=== PATIENT | female | born 1955 | race Caucasian/White ===

== ENCOUNTER → 2016-04-13 | Outpatient (CLI) | payer MEDICARE, MEDICAID ==
[~2016-04-13] MED LIST: BENZ5TA PO; CLON0.5T PO; CLON1TAB PO; IBUP60TA PO; LATU120T PO; LATU1TAB PO; LATU40TA PO; LEVO25TA5 PO; LEVO88TA3 PO; LIDO1OIN2 TOP; LYRI100C10 PO; MAPA500L PO; MOBI15TA PO; MUSCCRE9 EX; NAPR500T2 PO; RALO1TAB PO; ROZE8TAB9 PO; SYNT50TA PO; TIZA2TA PO; TRAM50TA2 PO; VENL150C43 PO; VENL75CA PO; VITA100066 PO; VITA500T88 PO; VITMTA PO; VOLT1GEL24 TD; tylenol PO
--- NOTE | 2016-04-30 00:58 | ECWPNPC ---
PATIENT NAME: LUZMARIA FUNES : 1955 GENDER: FEMALE VISIT DATE: 04/13/2016 DISCHARGE DATE: 04/13/16 1354 VISIT LOCKED DATE TIME: PHYSICIAN: FRANCHESCA GARCIA PHYSICIAN PAGER NO: [phone] RESOURCE: FRANCHESCA GARCIA REASON FOR APPOINTMENT 1. INCREASED PAIN HISTORY OF PRESENT ILLNESS HISTORY OF PRESENT ILLNESS: PAIN THE PATIENT DESCRIBES THE PAIN... FALL RISK SCREENING: SCREENING :NO FALLS IN THE PAST YEAR TODAY'S VISIT: NOTES: IS HAVING MORE PAIN IN LOW BACK. THIS INCREASED LAST WEEK. NOTES PAIN IS PRESENT WHEN GETTING UP IN THE MORNING. . CURRENT MEDICATIONS TAKING MUSCLE RUB ULTRA STRENGTH 8-30 % CREAM ONE APPLICATION TOPICALLY QID PRN TAKING CALCIUM 500 MG TABLET 1 TABLET WITH MEALS ORALLY TWICE A DAY TAKING ROZEREM 8 MG 1 TABLET AT BEDTIME NEEDED, NOTES: DR. PEARSON TAKING EFFEXOR XR 150 MG CAPSULE 1 CAPSULE ORALLY ONCE A DAY, NOTES: MICHEL HIGGINS TAKING KLONOPIN 0.5 MG TABLET 1 TAB ORALLY TWICE DAILY, NOTES: DR. PEARSON TAKING COGENTIN 0.5 MG 1 TAB(S) 2 TIMES A DAY, NOTES: DR. PEARSON TAKING LATUDA 80 MG TABLET 2 TABLETS WITH FOOD ORALLY DAILY, NOTES: MICHEL HIGGINS TAKING TIZANIDINE HCL 2 MG TABLET 1 TABLET ORALLY TAKE 1 AT MIDDAY AND 1 TAB AT BEDTIME TAKING EVISTA 60 MG TABLET 1 TABLET ORALLY ONCE A DAY TAKING KLONOPIN 1 MG TABLET 1 TABLET ORALLY BEFORE BEDTIME TAKING IBUPROFEN 600 MG TABLET 1 TABLET ORALLY THREE TIMES A DAY TAKING LEVOTHYROXINE SODIUM 25 MCG TABLET 1 TABLET ORALLY ONCE A DAY TAKING VITAMIN D 1000 UNITS TABLET 1 TABLET ORALLY DAILY TAKING LISINOPRIL 20 MG TABLET 1 TABLET ORALLY ONCE A DAY NOT-TAKING MULTIVITAMIN 1 TABLET CHEWABLE 1 TAB(S) ORALLY DAILY NOT-TAKING LATUDA 20 MG TABLET TABLET WITH FOOD TO TAKE WITH AN 80 MGS TOTAL 100 MGS DAILY. ORALLY ONCE A DAY NOT-TAKING LODINE 200 MG CAPSULE 1 CAPSULE NEEDED ORALLY EVERY 8 HRS NOT-TAKING VITAMIN C & D3/BETH HIPS 500-1000-20 MG-UNIT-MG CAPSULE ORALLY DAILY MEDICATION LIST REVIEWED AND RECONCILED WITH THE PATIENT PAST MEDICAL HISTORY HYPOTHYROIDISM MYOPIC ASTIGMATISM CALCANEAL SPURS ASTHMA, MILD INTERMITTENT IFG OSTEOPENIA, DEXA 01/18, T SCORE -2, AT SPINE 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 SCHIZOAFFECTIVE D/O WITH BIPOLAR FEATURES 11/15 EKG NEG PN 11/18 MORBID OBESITY MEMORY IMPAIRMENT, NEG WORK UP 06/18. XR LS SPINE 04/21 MILD SCOLIOSISCONVEX L/ BILATERAL L5 SPONDYLOLYSIS WITH GRADE 2 SPODYLOLITHESIS/ADV L5-S1 DDD/MOD T12-L1 DDD JOSEPH 09/18 FEV1 2.19 MRI LSPINE 12/19 - DIFFUSE DISC BULGE AT L4-5, L5-S1 WITH MIN THECAL SAC COMPRESSION, GRADE 2 SPONDYLOLITHESIS OF L5 ON S1 WITH ASSOC L5 PARS DEFECT, THERE IS COMPRESSION OF THE L5 NERVES IN THE NEURAL FORAMINA. ALLERGIES N.K.D.A. 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 NEW PATIENT PAIN DIARY TODAY'S VISITNOTES FROM 0-10, WHAT LEVEL IS YOUR PAIN TODAY?0 PAIN CLINIC PFS, CLERGY, PUBLIC HEALTH REFERRALS PFS REFERRAL NEEDED?NO CLERGY REFERRAL NEEDED?NO PUBLIC HEALTH REFERRAL NEEDED?NO WAS THE PROVIDER NOTIFIED OF ANY PERTINENT INFO?NO PFS REFERRAL NEEDED?NO CLERGY REFERRAL NEEDED?NO PUBLIC HEALTH REFERRAL NEEDED?NO WAS THE PROVIDER NOTIFIED OF ANY PERTINENT INFO?NO REVIEW OF SYSTEMS CONSTITUTIONAL: ANY CHANGE IN YOUR MEDICAL CONDITION? NO . CHILLS NO . FEVER NO . INFECTION: DO YOU HAVE NEW INFECTIONS? NO . DO YOU HAVE HISTORY OF MRSA? NO . MUSCULOSKELETAL: ANY NEW PATTERNS OF PAIN OR NUMBNESS? YES INCREASE IN BACK PAIN . GASTROENTEROLOGY: ANY NEW CHANGE IN BOWEL CONTROL? NO . GENITOURINARY: ANY NEW CHANGE IN BLADDER CONTROL? NO . IS THERE A CHANCE YOU COULD BE ? NO . HEMATOLOGY/LYMPH: DO YOU TAKE ANY BLOOD THINNERS? (FOR EXAMPLE- COUMADIN, PLAVIX, AGGRENOX, PLATEL, PRADAXA, OR XARELTO) NO . WHEN WAS YOUR LAST DOSE? DATE: TIME: . NEUROLOGY: HAVE YOU FALLEN IN THE PAST 6 MONTHS? NO . ANY NEW EXTREMITY NUMBNESS OR WEAKNESS? NO . CARDIOLOGY: DO YOU HAVE A PACEMAKER OR DEFIBRILLATOR? NO . RESPIRATORY: HAVE YOU BEEN SICK IN THE PAST WEEK? NO . FEVER NO . FLU LIKE SYMPTOMS? NO . COUGH NO . INTEGUMENTARY: DO YOU HAVE ANY RASHES OR OPEN SORES? NO . ALLERGIC/IMMUNO: ARE YOU ALLERGIC TO SHELLFISH OR IV DYE? NO . ANY NEW ALLERGIES? NO . PSYCHIATRIC: DO YOU HAVE THOUGHTS OF HURTING YOURSELF OR SOMEONE ELSE? NO . ARE YOU ABUSED, NEGLECTED, OR IN AN UNSAFE ENVIRONMENT? NO . ENDOCRINOLOGY: ARE YOU DIABETIC? NO . OTHER: DO YOU NEED ANY PRESCRIPTIONS? NO . IF YES, PLEASE LIST: ____ . ANY NEW PROBLEMS WITH YOUR MEDICATIONS? NO . WHEN DID YOU LAST EAT? ____ . WHEN DID YOU LAST DRINK? ____ . WHAT DID YOU LAST DRINK? ____ . NAME OF PERSON DRIVING YOU HOME? ____ . DO YOU HAVE ANY OTHER QUESTIONS OR CONCERNS NO . REVIEWED BY: PROVIDER: FRANCHESCA ARGUETA . VITAL SIGNS WT 180 LBS, HT 56.25 IN, BMI 39.99 INDEX, BP 121/52 MM HG, HR 88 /MIN, RR 18 /MIN, TEMP 97 F,5 F, OXYGEN SAT % 99, SAFE IN ENV? (Y/N) YES, REVIEWED BY: KG. EXAMINATION GENERAL EXAMINATION: GENERAL APPEARANCE:APPEARS THE STATED AGE, WELL NOURISHED AND HYDRATED, NO ACUTE DISTRESS. PSYCHAPPROPRIATE MOOD AND AFFECT . HEENT:HEAD: NORMOCEPHALIC, ATRAUMATIC. NECK:SUPPLE, NON-TENDER, NO LYMPHADENOPATHY, NO THYROMEGALY. LUNGS:CLEAR TO AUSCULTATION BILATERALLY. HEART:REGULAR RATE AND RHYTHM. MUSCULOSKELETAL:TENDER WITH PALPATION OVER LUMOSACRAL AXIS. ABLE TO FLEX/EXTEND AND ROTATE LOW BACK WITH ONLY MILD DISCOMFORT. GAIT NONANTALGIC. ASSESSMENTS MYALGIA - M79.1 (PRIMARY) LOW BACK PAIN - M54.5 OTHER CHRONIC PAIN - G89.29 TREATMENT MYALGIA NOTES: WALK DAILY. DO EXERCISES EVERY OTHER DAY. NO CHANGE IN MEDS. STOP TWISTING WITH EXERCISES FOR NOW. PROCEDURE CODES FA211 ESTABILISHED PATIENT [facility] CHARGE G8730 PAIN ASSESS POS TOOL F/U PLAN DOC G8427 DOC MEDS VERIFIED W/PT OR RE DISPOSITION & COMMUNICATION FOLLOW UP 3 MONTHS ELECTRONICALLY SIGNED BY SISI MOLINA ON 04/29/2016 AT 12:56 PM EST DISCLAIMER : THIS IS A VISIT SUMMARY EXTRACTED FROM THE [employer] CHART. IT IS NOT A COPY OF THE [employer] PROGRESS NOTE. MTDD
== END ==
LOC: M PAIN 13:20
PROVIDERS: ATTEND Nurse Practitioner Family
DX: M79.1 Myalgia (principal); M54.5 Low back pain; G89.29 Other chronic pain; Z79.899 Other long term (current) drug therapy; E03.9 Hypothyroidism, unspecified; R73.01 Impaired fasting glucose; M85.80 Other specified disorders of bone density and structure, unspecified site; E55.9 Vitamin D deficiency, unspecified; E66.9 Obesity, unspecified; G31.84 Mild cognitive impairment of uncertain or unknown etiology; F20.9 Schizophrenia, unspecified; J45.909 Unspecified asthma, uncomplicated

== ENCOUNTER → 2016-05-15 | Outpatient (CLI) | payer MEDICARE, MEDICAID ==
--- NOTE | 2016-05-15 13:35 | REPMRS ---
Patient History The patient states she has not had a clinical breast exam in over a year. Patient is postmenopausal, has history of breast cancer at age 54, and is nulliparous. No known family history of cancer. Malignant lumpectomy of the left breast, 2009. Took unspecified hormones for 2 years. [facility] Screen Mammo: May 15, 2016 - Exam #: [id number] Bilateral CC and MLO view(s) were taken. Technologist: Jaida Hines, Technologist Prior study comparison: May 13, 2015, digital woman screen mammo performed at [facility]. March 22, 2014, digital woman screen mammo performed at [facility]. FINDINGS: There are scattered fibroglandular densities. There has been no change in the appearance of the mammogram from the prior studies. There is a mild amount of residual fibroglandular tissue which is fairly symmetric. There is no interval development of dominant mass, architectural distortion, or clustered microcalcification suggestive of malignancy. ASSESSMENT: BI-RADS/ACR category 1 mammogram. Negative. Recommendation Routine screening mammogram in 1 year (for women over age 40). This mammogram was interpreted with the aid of an FDA-approved computer-aided dectection system. Electronically Signed By: Howard Kee MD 05/15/16 [id number]
== END ==
LOC: M WHC 11:22
PROVIDERS: ATTEND Nurse Practitioner Family
DX: Z12.31 Encounter for screening mammogram for malignant neoplasm of breast (principal); Z78.0 Asymptomatic menopausal state; Z92.0 Personal history of contraception; Z85.3 Personal history of malignant neoplasm of breast

== ENCOUNTER → 2016-05-21 | Outpatient (CLI) | payer MEDICARE, MEDICAID ==
[2016-05-21 12:18] LABS: ALBUMIN/GLOBULIN RATIO 1.54 (1.00-1.93); BILIRUBIN,TOTAL 0.2 MG/DL (0.2-1.0); CALCIUM LEVEL 9.4 MG/DL (8.5-10.1); CREATININE FOR GFR 1.07 MG/DL (0.55-1.02); FREE T4 0.92 NG/DL (0.76-1.46); GLOMERULAR FILTRATION RATE 56.1 (>51); TOTAL PROTEIN 6.6 GM/DL (6.4-8.2)
[2016-05-21 12:21] LABS: POTASSIUM SERUM 5.2 MEQ/L (3.5-5.1)
== END ==
LOC: M LAB 11:04
PROVIDERS: ATTEND Nurse Practitioner Family
DX: R73.01 Impaired fasting glucose (principal); E03.9 Hypothyroidism, unspecified; E55.9 Vitamin D deficiency, unspecified

== ENCOUNTER → 2016-07-13 | Outpatient (CLI) | payer MEDICARE, MEDICAID ==
--- NOTE | 2016-07-15 02:59 | ECWPNPC ---
PATIENT NAME: LUZMARIA FUNES : 1955 GENDER: FEMALE VISIT DATE: 07/13/2016 DISCHARGE DATE: 07/13/16 1119 VISIT LOCKED DATE TIME: PHYSICIAN: FRANCHESCA GARCIA PHYSICIAN PAGER NO: [phone] RESOURCE: FRANCHESCA GARCIA REASON FOR APPOINTMENT 1. FOLLOWUP HISTORY OF PRESENT ILLNESS HISTORY OF PRESENT ILLNESS: PAIN THE PATIENT DESCRIBES THE PAIN... FALL RISK SCREENING: SCREENING :NO FALLS IN THE PAST YEAR TODAY'S VISIT: NOTES: RATES PAIN TODAY 3/10 IN LOW BACK. REPORTS SHE HAS NOT YET STARTED YOGA BUT CONTINUES HER USUAL EXERCISES AND STRETCHES. NO RECENT FALLS. . CURRENT MEDICATIONS TAKING MUSCLE RUB ULTRA STRENGTH 8-30 % CREAM ONE APPLICATION TOPICALLY FOUR TIMES A DAY TAKING CALCIUM 500 MG TABLET 1 TABLET WITH MEALS ORALLY DAILY TAKING ROZEREM 8 MG 1 TABLET AT BEDTIME NEEDED, NOTES: DR. PEARSON TAKING IBUPROFEN 600 MG TABLET 1 TABLET ORALLY THREE TIMES A DAY TAKING LISINOPRIL 20 MG TABLET 1 TABLET ORALLY ONCE A DAY TAKING EFFEXOR XR 150 MG CAPSULE 1 CAPSULE ORALLY ONCE A DAY, NOTES: MICHEL HIGGINS TAKING KLONOPIN 0.5 MG TABLET 1 TAB AM 1 TAB @ NOON 2 TABS @ BEDTIME ORALLY THREE TIMES DAILY, NOTES: DR. PEARSON TAKING COGENTIN 0.5 MG 1 TAB(S) 2 TIMES A DAY, NOTES: DR. PEARSON TAKING LATUDA 80 MG TABLET 2 TABLETS WITH FOOD ORALLY DAILY, NOTES: MICHEL HIGGINS TAKING VITAMIN D 1000 UNITS TABLET 1 TABLET ORALLY DAILY TAKING LEVOTHYROXINE SODIUM 25 MCG TABLET 1 TABLET ORALLY ONCE A DAY TAKING TIZANIDINE HCL 2 MG TABLET 1 TABLET ORALLY TAKE 1 AT MIDDAY AND 1 TAB AT BEDTIME TAKING EVISTA 60 MG TABLET 1 TABLET ORALLY ONCE A DAY NOT-TAKING VITAMIN C & D3/BETH HIPS 500-1000-20 MG-UNIT-MG CAPSULE ORALLY DAILY MEDICATION LIST REVIEWED AND RECONCILED WITH THE PATIENT PAST MEDICAL HISTORY HYPOTHYROIDISM MYOPIC ASTIGMATISM CALCANEAL SPURS ASTHMA, MILD INTERMITTENT IFG OSTEOPENIA, DEXA 01/18, T SCORE -2, AT SPINE 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 SCHIZOAFFECTIVE D/O WITH BIPOLAR FEATURES 11/15 EKG NEG PN 11/18 MORBID OBESITY MEMORY IMPAIRMENT, NEG WORK UP 06/18. XR LS SPINE 04/21 MILD SCOLIOSISCONVEX L/ BILATERAL L5 SPONDYLOLYSIS WITH GRADE 2 SPODYLOLITHESIS/ADV L5-S1 DDD/MOD T12-L1 DDD JOSEPH 09/18 FEV1 2.19 MRI LSPINE 12/19 - DIFFUSE DISC BULGE AT L4-5, L5-S1 WITH MIN THECAL SAC COMPRESSION, GRADE 2 SPONDYLOLITHESIS OF L5 ON S1 WITH ASSOC L5 PARS DEFECT, THERE IS COMPRESSION OF THE L5 NERVES IN THE NEURAL FORAMINA. ALLERGIES N.K.D.A. REVIEW OF SYSTEMS CONSTITUTIONAL: ANY CHANGE IN YOUR MEDICAL CONDITION? NO . CHILLS NO . FEVER NO . INFECTION: DO YOU HAVE NEW INFECTIONS? NO . DO YOU HAVE HISTORY OF MRSA? NO . MUSCULOSKELETAL: ANY NEW PATTERNS OF PAIN OR NUMBNESS? NO . GASTROENTEROLOGY: ANY NEW CHANGE IN BOWEL CONTROL? NO . GENITOURINARY: ANY NEW CHANGE IN BLADDER CONTROL? NO . IS THERE A CHANCE YOU COULD BE ? NO . HEMATOLOGY/LYMPH: DO YOU TAKE ANY BLOOD THINNERS? (FOR EXAMPLE- COUMADIN, PLAVIX, AGGRENOX, PLATEL, PRADAXA, OR XARELTO) NO . WHEN WAS YOUR LAST DOSE? DATE: TIME: . NEUROLOGY: HAVE YOU FALLEN IN THE PAST 6 MONTHS? NO . ANY NEW EXTREMITY NUMBNESS OR WEAKNESS? NO . CARDIOLOGY: DO YOU HAVE A PACEMAKER OR DEFIBRILLATOR? NO . RESPIRATORY: HAVE YOU BEEN SICK IN THE PAST WEEK? YES, JUST STARTED DURING THE NIGHT. THROAT SORE AND COUGHING. . FEVER NO . FLU LIKE SYMPTOMS? NO . COUGH NO . INTEGUMENTARY: DO YOU HAVE ANY RASHES OR OPEN SORES? NO . ALLERGIC/IMMUNO: ARE YOU ALLERGIC TO SHELLFISH OR IV DYE? NO . ANY NEW ALLERGIES? NO . PSYCHIATRIC: DO YOU HAVE THOUGHTS OF HURTING YOURSELF OR SOMEONE ELSE? NO . ARE YOU ABUSED, NEGLECTED, OR IN AN UNSAFE ENVIRONMENT? NO . ENDOCRINOLOGY: ARE YOU DIABETIC? NO . OTHER: DO YOU NEED ANY PRESCRIPTIONS? NO . IF YES, PLEASE LIST: ____ . ANY NEW PROBLEMS WITH YOUR MEDICATIONS? NO . WHEN DID YOU LAST EAT? ____ . WHEN DID YOU LAST DRINK? ____ . WHAT DID YOU LAST DRINK? ____ . NAME OF PERSON DRIVING YOU HOME? ____ . DO YOU HAVE ANY OTHER QUESTIONS OR CONCERNS NO . REVIEWED BY: PROVIDER: FRANCHESCA ARGUETA . VITAL SIGNS WT 171.2 LBS, HT 56.25 IN, BMI 38.04 INDEX, BP 124/65 MM HG, HR 99 /MIN, RR 20 /MIN, TEMP 99.9 F, OXYGEN SAT % 98%, NA INITIALS TL 1102, REVIEWED BY: CMTEMP 99.9, RN Albert AWARE, PT STATES SHE HAS COLD- TL. EXAMINATION GENERAL EXAMINATION: GENERAL APPEARANCE:PALE, APPEARS ILL. PSYCHALERT , ORIENTED X 3 . HEENT:HEAD: NORMOCEPHALIC, ATRAUMATIC. VOICE RASY. LUNGS:CLEAR TO AUSCULTATION BILATERALLY. HEART:REGULAR RATE AND RHYTHM. MUSCULOSKELETAL: MINIMAL TENDER WITH PALPATION OVER LUMOSACRAL AXIS. ABLE TO FLEX/EXTEND AND ROTATE LOW BACK WITH ONLY MILD DISCOMFORT. GAIT NONANTALGIC. ASSESSMENTS MYALGIA - M79.1 (PRIMARY) LUMBAGO DUE TO DISPLACEMENT OF INTERVERTEBRAL DISC - M51.26 TREATMENT MYALGIA REFILL IBUPROFEN TABLET, 600 MG, 1 TABLET, ORALLY, THREE TIMES A DAY, 30 DAY(S), 90, REFILLS 2 NOTES: CONTINUE CURRENT MEDS, EXERCISES AND STRETCHES, I, FALLS CARE PLAN: 1. RECOMMEND REMOVING ALL THROW RUGS. 2. RECOMMEND NIGHT LIGHTS 3. RECOMMEND WEARING RUBBER SOLED SHOES AND TO NOT GO BAREFOOT. 4.. ADVISED TO CHANGE POSITION SLOWLY FROM SUPINE TO STANDING TO AVOID DIZZINESS. , #128 - SCREENING BMI AND F/U PLAN IN : BMI ABOVE NORMAL TODAY. DISCUSSED WITH PATIENT NUTRITIONAL FOOD CHOICES TO ASSIST WITH WEIGHT LOSS. RECCOMMENDED REDUCING SALT, SUGAR, SODA INTAKE. RECOMMEND INCREASE ACTIVITY TO INCLUDE WALKING ON A REGULAR BASIS. PROCEDURE CODES FA211 ESTABILISHED PATIENT [facility] CHARGE B0412 PAIN ASSESS POS TOOL F/U PLAN DOC X6810 DOC MEDS VERIFIED W/PT OR RE G4439 BP SCR PRFRM RCMDD DEFIND SCR INTVL 3016F PT SCRND UNHLTHY [place] USE 1124F ACP DISCUSS-NO DSCNMKR DOCD 1036F TOBACCO NON-USER 0518F FALL PLAN OF CARE DOCD G8420 BMI<30 AND >=22 CALC & DOCU 3288F FALL RISK ASSESSMENT DOCD DISPOSITION & COMMUNICATION FOLLOW UP 4 MONTHS ELECTRONICALLY SIGNED BY SISI MOLINA ON 07/13/2016 AT 12:55 PM EDT DISCLAIMER : THIS IS A VISIT SUMMARY EXTRACTED FROM THE [employer] CHART. IT IS NOT A COPY OF THE [employer] PROGRESS NOTE. ALEXANDRA
== END | disposition home or self-care (01) ==
LOC: M PAIN 10:00
PROVIDERS: ATTEND Nurse Practitioner Family
DX: G89.29 Other chronic pain (principal); M79.1 Myalgia; M51.26 Other intervertebral disc displacement, lumbar region; E03.9 Hypothyroidism, unspecified; J45.909 Unspecified asthma, uncomplicated; F25.9 Schizoaffective disorder, unspecified; M85.80 Other specified disorders of bone density and structure, unspecified site; E55.9 Vitamin D deficiency, unspecified; E66.9 Obesity, unspecified; G31.84 Mild cognitive impairment of uncertain or unknown etiology; Z79.899 Other long term (current) drug therapy

== ENCOUNTER → 2016-09-15 | Outpatient (CLI) | payer MEDICARE, MEDICAID ==
[~2016-09-15] MED LIST changes: +BENZ0.5T PO; -BENZ5TA PO; +IBUP1TAB6 PO; -IBUP60TA PO; +LISI-538 PO; -LYRI100C10 PO; +MUSC1CRE EX; -MUSCCRE9 EX; -NAPR500T2 PO; +NAPR500T3 PO; +NORCOTAB PO; +PREG100CA PO; +ROZE8TAB16 PO; -ROZE8TAB9 PO; -VENL75CA PO; +VENL75CA2 PO; +VITA200025 PO; +VOLT1GEL15 TD; -VOLT1GEL24 TD
[2016-09-15 14:38] LABS: ALBUMIN 3.8 GM/DL (3.2-5.2); ALBUMIN/GLOBULIN RATIO 1.58 (1.00-1.93); ALKALINE PHOSPHATASE 48 U/L (45-117); ALT/SGPT 26 U/L (12-78); ANION GAP 10 MEQ/L (8-16); AST/SGOT 19 U/L (15-37); BILIRUBIN,TOTAL 0.1 MG/DL (0.2-1.0); BLOOD UREA NITROGEN 13 MG/DL (7-18); CALCIUM LEVEL 8.5 MG/DL (8.5-10.1); CARBON DIOXIDE LEVEL 25 MEQ/L (21-32); CHLORIDE LEVEL 94 MEQ/L (98-107); CREATININE FOR GFR 0.75 MG/DL (0.55-1.02); FREE T4 0.99 NG/DL (0.76-1.46); GLOMERULAR FILTRATION RATE > 60.0 (>51); GLUCOSE, FASTING 106 MG/DL (70-105); POTASSIUM SERUM 4.8 MEQ/L (3.5-5.1); SODIUM LEVEL 129 MEQ/L (136-145); TOTAL PROTEIN 6.2 GM/DL (6.4-8.2)
== END ==
LOC: M LAB 12:56
PROVIDERS: ATTEND Nurse Practitioner Family
DX: I10 Essential (primary) hypertension (principal); E03.9 Hypothyroidism, unspecified; E55.9 Vitamin D deficiency, unspecified

== ENCOUNTER → 2016-10-12 | Outpatient (CLI) | payer MEDICARE, MEDICAID ==
--- NOTE | 2016-10-31 23:23 | ECWPNPC ---
PATIENT NAME: LUZMARIA FUNES : 1955 GENDER: FEMALE VISIT DATE: 10/12/2016 DISCHARGE DATE: 10/12/16 1137 VISIT LOCKED DATE TIME: PHYSICIAN: FRANCHESCA GARCIA PHYSICIAN PAGER NO: [phone] RESOURCE: FRANCHESCA GARCIA REASON FOR APPOINTMENT 1. LOWER BACK HISTORY OF PRESENT ILLNESS HISTORY OF PRESENT ILLNESS: PAIN THE PATIENT DESCRIBES THE PAIN... FALL RISK SCREENING: SCREENING :NO FALLS IN THE PAST YEAR TODAY'S VISIT: NOTES: RATES PAIN TODAY 5/10. STATES HAS NO PAIN IN LEGS. 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 . CURRENT MEDICATIONS TAKING MUSCLE RUB ULTRA STRENGTH 8-30 % CREAM ONE APPLICATION TOPICALLY FOUR TIMES A DAY TAKING CALCIUM 500 MG TABLET 1 TABLET WITH MEALS ORALLY DAILY TAKING ROZEREM 8 MG 1 TABLET AT BEDTIME NEEDED, NOTES: DR. PEARSON TAKING TIZANIDINE HCL 2 MG TABLET 1 TABLET ORALLY TAKE 1 AT MIDDAY AND 1 TAB AT BEDTIME TAKING EVISTA 60 MG TABLET 1 TABLET ORALLY ONCE A DAY TAKING IBUPROFEN 600 MG TABLET 1 TABLET ORALLY THREE TIMES A DAY TAKING LISINOPRIL 20 MG TABLET 1 TABLET ORALLY ONCE A DAY TAKING LEVOTHYROXINE SODIUM 50 MCG TABLET 1 TABLET ON AN EMPTY STOMACH IN THE MORNING ORALLY ONCE A DAY TAKING VITAMIN D 2000 UNIT CAPSULE 1 CAPSULE ORALLY ONCE A DAY TAKING EFFEXOR XR 150 MG CAPSULE 1 CAPSULE ORALLY ONCE A DAY, NOTES: MICHEL HIGGINS TAKING KLONOPIN 0.5 MG TABLET 1 TAB AM 1 TAB @ NOON 2 TABS @ BEDTIME ORALLY THREE TIMES DAILY, NOTES: DR. PEARSON TAKING COGENTIN 0.5 MG 1 TAB(S) 2 TIMES A DAY, NOTES: DR. PEARSON TAKING LATUDA 80 MG TABLET 2 TABLETS WITH FOOD ORALLY DAILY, NOTES: MICHEL HIGGINS NOT-TAKING VITAMIN C & D3/BETH HIPS 500-1000-20 MG-UNIT-MG CAPSULE ORALLY DAILY MEDICATION LIST REVIEWED AND RECONCILED WITH THE PATIENT PAST MEDICAL HISTORY HYPOTHYROIDISM MYOPIC ASTIGMATISM CALCANEAL SPURS ASTHMA, MILD INTERMITTENT IFG OSTEOPENIA, DEXA 01/18, T SCORE -2, AT SPINE 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 SCHIZOAFFECTIVE D/O WITH BIPOLAR FEATURES 11/15 EKG NEG PN 11/18 MORBID OBESITY MEMORY IMPAIRMENT, NEG WORK UP 06/18. XR LS SPINE 2/14 MILD SCOLIOSISCONVEX L/ BILATERAL L5 SPONDYLOLYSIS WITH GRADE 2 SPODYLOLITHESIS/ADV L5-S1 DDD/MOD T12-L1 DDD JOSEPH 09/18 FEV1 2.19 MRI LSPINE 12/19 - DIFFUSE DISC BULGE AT L4-5, L5-S1 WITH MIN THECAL SAC COMPRESSION, GRADE 2 SPONDYLOLITHESIS OF L5 ON S1 WITH ASSOC L5 PARS DEFECT, THERE IS COMPRESSION OF THE L5 NERVES IN THE NEURAL FORAMINA. ALLERGIES N.K.D.A. SURGICAL HISTORY L BREAST BX 11/04/09 L BREAST LUMPECTOMY--DCIS 11/27/09 REFUSES COLONOSCOPY REFERRAL/2009 (PT IS INTERESTED IN TALKING ABOUT THIS PROCEDURE 2011),APPT. NOTED FOR 01/27/12 HOSPITALIZATION/MAJOR DIAGNOSTIC PROCEDURE [facility]- SCHIZOAFFECTIVE D/O 01/19 REVIEW OF SYSTEMS REVIEWED BY: PROVIDER: FRANCHESCA ARGUETA . CONSTITUTIONAL: ANY CHANGE IN YOUR MEDICAL CONDITION? NO . CHILLS NO . FEVER NO . INFECTION: DO YOU HAVE NEW INFECTIONS? NO . DO YOU HAVE HISTORY OF MRSA? NO . MUSCULOSKELETAL: ANY NEW PATTERNS OF PAIN OR NUMBNESS? NO . GASTROENTEROLOGY: GENERAL STATES STOOLS ARE HARD BUT IS NOT CONSTIP . ANY NEW CHANGE IN BOWEL CONTROL? NO . GENITOURINARY: ANY NEW CHANGE IN BLADDER CONTROL? NO . IS THERE A CHANCE YOU COULD BE ? NO . HEMATOLOGY/LYMPH: DO YOU TAKE ANY BLOOD THINNERS? (FOR EXAMPLE- COUMADIN, PLAVIX, AGGRENOX, PLATEL, PRADAXA, OR XARELTO) NO . WHEN WAS YOUR LAST DOSE? DATE: TIME: . NEUROLOGY: HAVE YOU FALLEN IN THE PAST 6 MONTHS? NO . ANY NEW EXTREMITY NUMBNESS OR WEAKNESS? NO . CARDIOLOGY: DO YOU HAVE A PACEMAKER OR DEFIBRILLATOR? NO . RESPIRATORY: HAVE YOU BEEN SICK IN THE PAST WEEK? NO . FEVER NO . FLU LIKE SYMPTOMS? NO . COUGH NO . INTEGUMENTARY: DO YOU HAVE ANY RASHES OR OPEN SORES? NO . ALLERGIC/IMMUNO: ARE YOU ALLERGIC TO SHELLFISH OR IV DYE? NO . ANY NEW ALLERGIES? NO . PSYCHIATRIC: DO YOU HAVE THOUGHTS OF HURTING YOURSELF OR SOMEONE ELSE? NO . ARE YOU ABUSED, NEGLECTED, OR IN AN UNSAFE ENVIRONMENT? NO . ENDOCRINOLOGY: ARE YOU DIABETIC? NO . OTHER: DO YOU NEED ANY PRESCRIPTIONS? YES, IBUPROFEN . IF YES, PLEASE LIST: ____ . ANY NEW PROBLEMS WITH YOUR MEDICATIONS? NO . WHEN DID YOU LAST EAT? ____ . WHEN DID YOU LAST DRINK? ____ . WHAT DID YOU LAST DRINK? ____ . NAME OF PERSON DRIVING YOU HOME? ____ . DO YOU HAVE ANY OTHER QUESTIONS OR CONCERNS NO . VITAL SIGNS WT 172.2 LBS, HT 56.25 IN, BMI 38.26 INDEX, BP 165/84 MM HG, HR 101 /MIN, RR 20 /MIN, TEMP 98.9 F, OXYGEN SAT % 99%, NA INITIALS TR 1111. EXAMINATION GENERAL EXAMINATION: GENERAL APPEARANCE:PALE, APPEARS ILL. PSYCHALERT , ORIENTED X 3 TREMULOUS TODAY. HEENT:HEAD: NORMOCEPHALIC, ATRAUMATIC. VOICE RASY. LUNGS:CLEAR TO AUSCULTATION BILATERALLY. HEART:REGULAR RATE AND RHYTHM. MUSCULOSKELETAL:TENDER WITH PALPATION OVER LUMBOSACRAL AXIS. ABLE TO FLEX/EXTEND AND ROTATE LOW BACK WITH ONLY MILD DISCOMFORT. GAIT NONANTALGIC. ASSESSMENTS MYALGIA - M79.1 (PRIMARY) LUMBAGO DUE TO DISPLACEMENT OF INTERVERTEBRAL DISC - M51.26 TREATMENT MYALGIA REFILL IBUPROFEN TABLET, 600 MG, 1 TABLET, ORALLY, THREE TIMES A DAY, 30 DAY(S), 90, REFILLS 2 NOTES: CONTINUE MUSCLE RUB OR SIMILIAR CREAM TO LOW BACK. WALK DAILY. CONTINUE EXERCISES. PROCEDURE CODES FA211 ESTABILISHED PATIENT [facility] CHARGE G8730 PAIN ASSESS POS TOOL F/U PLAN DOC G8427 DOC MEDS VERIFIED W/PT OR RE DISPOSITION & COMMUNICATION FOLLOW UP 4 MONTHS (REASON: BACK PAIN) ELECTRONICALLY SIGNED BY SISI MOLINA ON 10/31/2016 AT 03:18 PM EDT DISCLAIMER : THIS IS A VISIT SUMMARY EXTRACTED FROM THE [facility] CHART. IT IS NOT A COPY OF THE [facility] PROGRESS NOTE. ALEXANDRA
== END | disposition home or self-care (01) ==
LOC: M PAIN 11:00
PROVIDERS: ATTEND Nurse Practitioner Family
DX: G89.29 Other chronic pain (principal); M79.1 Myalgia; M51.26 Other intervertebral disc displacement, lumbar region; E03.9 Hypothyroidism, unspecified; J45.909 Unspecified asthma, uncomplicated; F25.9 Schizoaffective disorder, unspecified; M85.80 Other specified disorders of bone density and structure, unspecified site; E55.9 Vitamin D deficiency, unspecified; E66.9 Obesity, unspecified; G31.84 Mild cognitive impairment of uncertain or unknown etiology; Z79.899 Other long term (current) drug therapy

== ENCOUNTER → 2016-11-20 | Outpatient (CLI) | payer MEDICARE, MEDICAID ==
--- NOTE | 2016-12-17 00:24 | ECWPNPC ---
PATIENT NAME: LUZMARIA FUNES : 1955 GENDER: FEMALE VISIT DATE: 11/20/2016 DISCHARGE DATE: 11/20/16 1457 VISIT LOCKED DATE TIME: PHYSICIAN: FRANCHESCA GARCIA PHYSICIAN PAGER NO: [phone] RESOURCE: FRANCHESCA GARCIA REASON FOR APPOINTMENT 1. INCREASED PAIN HISTORY OF PRESENT ILLNESS FALL RISK SCREENING: SCREENING :NO FALLS IN THE PAST YEAR PAIN SCREENING: PATIENT HAS A COMPLAINT OF ACUTE OR CHRONIC PAIN :YES TODAY'S VISIT: NOTES: RATES PAIN TODAY 5/10. NOTES PAIN OVER THE RIGHT SSACRUM. REPORTS IS DOING EXERCISES EVERY DAY. IS ASKING IF THE PROBLEM IS HER OLD MATTRESSES. . CURRENT MEDICATIONS TAKING MUSCLE RUB ULTRA STRENGTH 8-30 % CREAM ONE APPLICATION TOPICALLY FOUR TIMES A DAY TAKING CALCIUM 500 MG TABLET 1 TABLET WITH MEALS ORALLY DAILY TAKING ROZEREM 8 MG 1 TABLET AT BEDTIME NEEDED, NOTES: DR. PEARSON TAKING TIZANIDINE HCL 2 MG TABLET 1 TABLET ORALLY TAKE 1 AT MIDDAY AND 1 TAB AT BEDTIME TAKING LISINOPRIL 20 MG TABLET 1 TABLET ORALLY ONCE A DAY TAKING LEVOTHYROXINE SODIUM 50 MCG TABLET 1 TABLET ON AN EMPTY STOMACH IN THE MORNING ORALLY ONCE A DAY TAKING VITAMIN D 2000 UNIT CAPSULE 1 CAPSULE ORALLY ONCE A DAY TAKING EFFEXOR XR 75 MG CAPSULE EXTENDED RELEASE 24 HOUR 1 CAPSULE ORALLY ONCE A DAY, NOTES: MICHEL HIGGINS TAKE WITH 150MG TAKING KLONOPIN 0.5 MG TABLET 1 TAB AM 1 TAB @ NOON 2 TABS @ BEDTIME ORALLY THREE TIMES DAILY, NOTES: DR. PEARSON TAKING COGENTIN 0.5 MG 1 TAB(S) 2 TIMES A DAY, NOTES: DR. PEARSON TAKING LATUDA 80 MG TABLET 2 TABLETS WITH FOOD ORALLY DAILY, NOTES: MICHEL HIGGINS TAKING IBUPROFEN 600 MG TABLET 1 TABLET ORALLY THREE TIMES A DAY TAKING EVISTA 60 MG TABLET 1 TABLET ORALLY ONCE A DAY TAKING EFFEXOR XR 150 MG CAPSULE EXTENDED RELEASE 24 HOUR 1 CAPSULE WITH FOOD ORALLY ONCE A DAY, NOTES: TAKE WITH 75MG NOT-TAKING VITAMIN C & D3/BETH HIPS 500-1000-20 MG-UNIT-MG CAPSULE ORALLY DAILY MEDICATION LIST REVIEWED AND RECONCILED WITH THE PATIENT PAST MEDICAL HISTORY HYPOTHYROIDISM MYOPIC ASTIGMATISM CALCANEAL SPURS ASTHMA, MILD INTERMITTENT IFG OSTEOPENIA, DEXA 01/18, T SCORE -2, AT SPINE 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 SCHIZOAFFECTIVE D/O WITH BIPOLAR FEATURES 11/15 EKG NEG PN 11/18 MORBID OBESITY MEMORY IMPAIRMENT, NEG WORK UP 06/18. XR LS SPINE 04/21 MILD SCOLIOSISCONVEX L/ BILATERAL L5 SPONDYLOLYSIS WITH GRADE 2 SPODYLOLITHESIS/ADV L5-S1 DDD/MOD T12-L1 DDD JOSEPH 09/18 FEV1 2.19 MRI LSPINE 12/19 - DIFFUSE DISC BULGE AT L4-5, L5-S1 WITH MIN THECAL SAC COMPRESSION, GRADE 2 SPONDYLOLITHESIS OF L5 ON S1 WITH ASSOC L5 PARS DEFECT, THERE IS COMPRESSION OF THE L5 NERVES IN THE NEURAL FORAMINA. ALLERGIES N.K.D.A. SOCIAL HISTORY GENERAL: TOBACCO USE ARE YOU A:NONSMOKER BMI CARE GOAL FOLLOW-UP ABOVE NORMAL BMI FOLLOW-UPDIETARY MANAGEMENT EDUCATION, GUIDANCE, AND COUNSELING ALCOHOL SCREENING DID YOU HAVE A DRINK CONTAINING ALCOHOL IN THE PAST YEAR?NO POINTS0 INTERPRETATIONNEGATIVE RECREATIONAL DRUG USE DRUG USE?NO CAFFEINE CAFFEINE USE?YES DIET PEPSI- 1/DAY SEXUAL HX HAD SEX IN THE LAST 12 MONTHS (VAGINAL, ORAL, OR ANAL)?NO HAVE YOU EVER HAD AN STD?NO HIV / HEP-C SCREENING HIV TEST OFFERED TO PATIENT:YES DATE OFFERED:05/27/2016 TEST ACCEPTED:NO REASON:PATIENT DECLINED HEP-C TEST OFFERED TO PATIENT:YES DATE OFFERED:05/27/2016 TEST ACCEPTED:NO REASON:PATIENT DECLINED OCCUPATION: DISABLED. DIET: REGULAR. EXERCISE: WALKS. MARITAL STATUS: SINGLE. OTHERS AT HOME: NONE. PETS: CAT-. CONGREGATION CHURCH. LANGUAGE BENINESE. EDUCATION 12 TH GRADE GRADUATE. LEARNING BARRIERS / SPECIAL NEEDS CHANGE FROM LAST VISIT?NO BARRIERS TO LEARNING?NO HEARING IMPAIRED?NO VISION IMPAIRED?YES :CORRECTIVE LENSES COGNITIVELY IMPAIRED?NO READINESS TO LEARN?YES LEARNING PREFERENCES?NO LEARNING CAPABILITIES PRESENT?YES EMOTIONAL BARRIERS?NO SPECIAL DEVICES?NO CHARGE LPN NEEDED?NO NEW PATIENT PAIN DIARY TODAY'S VISITNOTES FROM 0-10, WHAT LEVEL IS YOUR PAIN TODAY?0 PAIN CLINIC PFS, CLERGY, PUBLIC HEALTH REFERRALS PFS REFERRAL NEEDED?NO CLERGY REFERRAL NEEDED?NO PUBLIC HEALTH REFERRAL NEEDED?NO WAS THE PROVIDER NOTIFIED OF ANY PERTINENT INFO?YES HAS THE PATIENT BEEN EDUCATED REGARDING HIS/HER PLAN OF CARE?YES HAS THE PATIENT BEEN EDUCATED REGARDING PAIN, THE RISK FOR PAIN, THE IMPORTANCE OF EFFECTIVE PAIN MANAGEMENT, AND THE PAIN ASSESSMENT PROCESS?YES REVIEW OF SYSTEMS REVIEWED BY: PROVIDER: FRANCHESCA ARGUETA . CONSTITUTIONAL: ANY CHANGE IN YOUR MEDICAL CONDITION? NO . CHILLS NO . FEVER NO . INFECTION: DO YOU HAVE NEW INFECTIONS? NO . DO YOU HAVE HISTORY OF MRSA? NO . MUSCULOSKELETAL: ANY NEW PATTERNS OF PAIN OR NUMBNESS? YES, PT STATES THAT SHE IS HAVING INCREASED PAIN IN BUTTOCKS AREA, VERY NOTICEABLE WHEN SHE WAKES UP IN THE MORNING. . SYTEMIC LUPUS NO . GASTROENTEROLOGY: ANY NEW CHANGE IN BOWEL CONTROL? NO . BARRETTS ESOPHAGUS NO . CIRRHOSIS NO . HEPATITIS NO . LIVER FAILURE NO . ACID REFLUX NO . UNEXPLAINED WEIGHT LOSS NO . GENITOURINARY: ANY NEW CHANGE IN BLADDER CONTROL? NO . IS THERE A CHANCE YOU COULD BE ? NO . HEMATOLOGY/LYMPH: DO YOU TAKE ANY BLOOD THINNERS? (FOR EXAMPLE- COUMADIN, PLAVIX, AGGRENOX, PLATEL, PRADAXA, OR XARELTO) NO . WHEN WAS YOUR LAST DOSE? DATE: TIME: . LOW PLATELET COUNT NO . SICKLE CELL DISEASE NO . VON WILLIEBRANDS NO . FACTOR V LEIDEN NO . THALLASEMIA NO . ANEMIA NO . EASY BRUISING NO . NEUROLOGY: HAVE YOU FALLEN IN THE PAST 6 MONTHS? NO . ANY NEW EXTREMITY NUMBNESS OR WEAKNESS? NO . HEAD INJURY NO . DEMENTIA NO . CEREBRAL PALSY NO . MULTIPLE SCLEROSIS NO . DIZZINESS NO . HEADACHE NO . STROKES NO . VERTIGO NO . CARDIOLOGY: DO YOU HAVE A PACEMAKER OR DEFIBRILLATOR? NO . ANGINA NO . HEART ATTACK NO . HEART SURGERY NO . CONGESTIVE HEART FAILURE/FLUID OVERLOAD NO . CHEST PAIN NO . HIGH BLOOD PRESSURE NO . IRREGULAR HEART BEAT NO . RESPIRATORY: HAVE YOU BEEN SICK IN THE PAST WEEK? NO . FEVER NO . FLU LIKE SYMPTOMS? NO . CPAP NO . BYPAP NO . ASTHMA NO . EMPHYSEMA NO . CHRONIC LUNG DISEASES NO . SHORTNESS OF BREATH ON EXERTION NO . COUGH NO . SNORING NO . INTEGUMENTARY: DO YOU HAVE ANY RASHES OR OPEN SORES? NO . ALLERGIC/IMMUNO: ARE YOU ALLERGIC TO SHELLFISH OR IV DYE? NO . ANY NEW ALLERGIES? NO . PSYCHIATRIC: DO YOU HAVE THOUGHTS OF HURTING YOURSELF OR SOMEONE ELSE? NO . ARE YOU ABUSED, NEGLECTED, OR IN AN UNSAFE ENVIRONMENT? NO . ENDOCRINOLOGY: ARE YOU DIABETIC? NO . THYROID DISORDER NO . OTHER: DO YOU NEED ANY PRESCRIPTIONS? NO . IF YES, PLEASE LIST: ____ . ANY NEW PROBLEMS WITH YOUR MEDICATIONS? NO . WHEN DID YOU LAST EAT? ____ . WHEN DID YOU LAST DRINK? ____ . WHAT DID YOU LAST DRINK? ____ . NAME OF PERSON DRIVING YOU HOME? ____ . DO YOU HAVE ANY OTHER QUESTIONS OR CONCERNS NO . VITAL SIGNS WT 175.2 LBS, HT 56.25 IN, BMI 38.93 INDEX, BP 124/87 MM HG, HR 81 /MIN, RR 18 /MIN, TEMP 98.8 F, OXYGEN SAT % 100%, SAFE IN ENV? (Y/N) Y, NA INITIALS SC 14:36, REVIEWED BY: DARRIN. EXAMINATION GENERAL EXAMINATION: GENERAL APPEARANCE:PALE, APPEARS ILL. PSYCHALERT , ORIENTED X 3 TREMULOUS TODAY. HEENT:HEAD: NORMOCEPHALIC, ATRAUMATIC. VOICE RASY. LUNGS:CLEAR TO AUSCULTATION BILATERALLY. HEART:REGULAR RATE AND RHYTHM. MUSCULOSKELETAL:TENDER WITH PALPATION OVER LUMBOSACRAL AXIS. ABLE TO FLEX/EXTEND AND ROTATE LOW BACK WITH ONLY MILD DISCOMFORT. GAIT NONANTALGIC. ASSESSMENTS MYALGIA - M79.1 (PRIMARY) LUMBAGO DUE TO DISPLACEMENT OF INTERVERTEBRAL DISC - M51.26 TREATMENT MYALGIA NOTES: OK TO GET NEW MATTRESS - THIS MAY HELP BACK PAIN. KEEP USING MUSCLE RUB. WALK EVERY DAY. WILL CONSIDER TRIGGER POINTS IN THE FUTURE. PROCEDURE CODES FA211 ESTABILISHED PATIENT [facility] FACILITY CHARGE G8730 PAIN ASSESS POS TOOL F/U PLAN DOC G8427 DOC MEDS VERIFIED W/PT OR RE DISPOSITION & COMMUNICATION FOLLOW UP 2 MONTHS (REASON: BACK PAIN) ELECTRONICALLY SIGNED BY SISI MOLINA ON 12/16/2016 AT 08:32 AM EDT DISCLAIMER : THIS IS A VISIT SUMMARY EXTRACTED FROM THE [facility] CHART. IT IS NOT A COPY OF THE [facility] PROGRESS NOTE. ALEXANDRA
== END ==
LOC: M PAIN 13:30
PROVIDERS: ATTEND Nurse Practitioner Family
DX: M79.1 Myalgia (principal); M51.26 Other intervertebral disc displacement, lumbar region; G89.29 Other chronic pain; E03.9 Hypothyroidism, unspecified; E55.9 Vitamin D deficiency, unspecified; F25.0 Schizoaffective disorder, bipolar type; I10 Essential (primary) hypertension; Z79.899 Other long term (current) drug therapy

== ENCOUNTER → 2016-11-30 | Outpatient (REF) | payer MEDICARE, MEDICAID ==
[2016-11-30 14:50] LABS: FREE T4 0.99 NG/DL (0.76-1.46)
== END ==
LOC: M SFHCPLAZ 10:45
PROVIDERS: ATTEND Nurse Practitioner Family
DX: E03.9 Hypothyroidism, unspecified (principal)

== ENCOUNTER → 2016-12-08 | Outpatient (CLI) | payer MEDICARE, MEDICAID ==
[~2016-12-08] MED LIST changes: +BUPIVACAINE HCL 0.25% 10 ML VIAL As Ordered ONE; +BUPIVACAINE HCL 0.25% 30 ML VIAL As Ordered ONE; +TRIAMCINOLONE ACETONIDE SUSP 40 MG/ML VIAL (J3301) As Ordered ONE
--- NOTE | 2016-12-09 00:06 | ECWPNPC ---
PATIENT NAME: LUZMARIA FUNES : 1955 GENDER: FEMALE VISIT DATE: 12/08/2016 DISCHARGE DATE: 12/08/16 1208 VISIT LOCKED DATE TIME: PHYSICIAN: DANIELLE CAMPUZANO PHYSICIAN PAGER NO: [phone] RESOURCE: DANIELLE CAPMUZANO REASON FOR APPOINTMENT 1. TPI TO LOW BACK HISTORY OF PRESENT ILLNESS HISTORY OF PRESENT ILLNESS: PAIN THE PATIENT DESCRIBES THE PAIN... FALL RISK SCREENING: SCREENING :NO FALLS IN THE PAST YEAR CURRENT MEDICATIONS UNKNOWN MUSCLE RUB ULTRA STRENGTH 8-30 % CREAM ONE APPLICATION TOPICALLY FOUR TIMES A DAY, NOTES: NOT LATELY UNKNOWN CALCIUM 500 MG TABLET 1 TABLET WITH MEALS ORALLY DAILY, NOTES: 12-08-16799 UNKNOWN ROZEREM 8 MG 1 TABLET AT BEDTIME NEEDED, NOTES: 12-07-162099 UNKNOWN LISINOPRIL 20 MG TABLET 1 TABLET ORALLY ONCE A DAY, NOTES: 12-08-16 UNKNOWN LEVOTHYROXINE SODIUM 50 MCG TABLET 1 TABLET ON AN EMPTY STOMACH IN THE MORNING ORALLY ONCE A DAY, NOTES: 12-08-16699 UNKNOWN VITAMIN D 2000 UNIT CAPSULE 1 CAPSULE ORALLY ONCE A DAY, NOTES: 12-08-16699 UNKNOWN EFFEXOR XR 75 MG CAPSULE EXTENDED RELEASE 24 HOUR 1 CAPSULE ORALLY ONCE A DAY, NOTES: 12-08-16699 UNKNOWN KLONOPIN 0.5 MG TABLET 1 TAB AM 1 TAB @ NOON 2 TABS @ BEDTIME ORALLY THREE TIMES DAILY, NOTES: 12-08-16799 UNKNOWN COGENTIN 0.5 MG 1 TAB(S) 2 TIMES A DAY, NOTES: 12-08-16799 UNKNOWN LATUDA 80 MG TABLET 2 TABLETS WITH FOOD ORALLY DAILY, NOTES: 12-07-162099 UNKNOWN IBUPROFEN 600 MG TABLET 1 TABLET ORALLY THREE TIMES A DAY, NOTES: A COUPLE DAYS AGO UNKNOWN EFFEXOR XR 150 MG CAPSULE EXTENDED RELEASE 24 HOUR 1 CAPSULE WITH FOOD ORALLY ONCE A DAY, NOTES: TAKE WITH 75MG UNKNOWN EVISTA 60 MG TABLET 1 TABLET ORALLY ONCE A DAY, NOTES: 12-08-16699 UNKNOWN TIZANIDINE HCL 2 MG TABLET 1 TABLET ORALLY TAKE 1 AT MIDDAY AND 1 TAB AT BEDTIME, NOTES: 12-07-162099 UNKNOWN VITAMIN C & D3/BETH HIPS 500-1000-20 MG-UNIT-MG CAPSULE ORALLY DAILY MEDICATION LIST REVIEWED AND RECONCILED WITH THE PATIENT PAST MEDICAL HISTORY HYPOTHYROIDISM MYOPIC ASTIGMATISM CALCANEAL SPURS ASTHMA, MILD INTERMITTENT IFG OSTEOPENIA, DEXA 01/18, T SCORE -2, AT SPINE 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 SCHIZOAFFECTIVE D/O WITH BIPOLAR FEATURES 11/15 EKG NEG PN 11/18 MORBID OBESITY MEMORY IMPAIRMENT, NEG WORK UP 06/18. XR LS SPINE 04/21 MILD SCOLIOSISCONVEX L/ BILATERAL L5 SPONDYLOLYSIS WITH GRADE 2 SPODYLOLITHESIS/ADV L5-S1 DDD/MOD T12-L1 DDD JOSEPH 09/18 FEV1 2.19 MRI LSPINE 12/19 - DIFFUSE DISC BULGE AT L4-5, L5-S1 WITH MIN THECAL SAC COMPRESSION, GRADE 2 SPONDYLOLITHESIS OF L5 ON S1 WITH ASSOC L5 PARS DEFECT, THERE IS COMPRESSION OF THE L5 NERVES IN THE NEURAL FORAMINA. ALLERGIES N.K.D.A. REVIEW OF SYSTEMS REVIEWED BY: PROVIDER: . CONSTITUTIONAL: ANY CHANGE IN YOUR MEDICAL CONDITION? NO . CHILLS NO . FEVER NO . INFECTION: DO YOU HAVE NEW INFECTIONS? NO . DO YOU HAVE HISTORY OF MRSA? NO . MUSCULOSKELETAL: ANY NEW PATTERNS OF PAIN OR NUMBNESS? NO . GASTROENTEROLOGY: ANY NEW CHANGE IN BOWEL CONTROL? NO . GENITOURINARY: ANY NEW CHANGE IN BLADDER CONTROL? NO . IS THERE A CHANCE YOU COULD BE ? NO . HEMATOLOGY/LYMPH: DO YOU TAKE ANY BLOOD THINNERS? (FOR EXAMPLE- COUMADIN, PLAVIX, AGGRENOX, PLATEL, PRADAXA, OR XARELTO) NO . WHEN WAS YOUR LAST DOSE? DATE: TIME: . NEUROLOGY: HAVE YOU FALLEN IN THE PAST 6 MONTHS? NO . ANY NEW EXTREMITY NUMBNESS OR WEAKNESS? NO . CARDIOLOGY: DO YOU HAVE A PACEMAKER OR DEFIBRILLATOR? NO . RESPIRATORY: HAVE YOU BEEN SICK IN THE PAST WEEK? NO . FEVER NO . FLU LIKE SYMPTOMS? NO . COUGH NO . INTEGUMENTARY: DO YOU HAVE ANY RASHES OR OPEN SORES? NO . ALLERGIC/IMMUNO: ARE YOU ALLERGIC TO SHELLFISH OR IV DYE? NO . ANY NEW ALLERGIES? NO . PSYCHIATRIC: DO YOU HAVE THOUGHTS OF HURTING YOURSELF OR SOMEONE ELSE? NO . ARE YOU ABUSED, NEGLECTED, OR IN AN UNSAFE ENVIRONMENT? NO . ENDOCRINOLOGY: ARE YOU DIABETIC? NO . OTHER: DO YOU NEED ANY PRESCRIPTIONS? NO . IF YES, PLEASE LIST: ____ . ANY NEW PROBLEMS WITH YOUR MEDICATIONS? NO . WHEN DID YOU LAST EAT? ____LAST NIGHT . WHEN DID YOU LAST DRINK? ____A LITTLE WATER THIS AM . WHAT DID YOU LAST DRINK? ____WATER . NAME OF PERSON DRIVING YOU HOME? ____BILL HODGE . DO YOU HAVE ANY OTHER QUESTIONS OR CONCERNS NO . VITAL SIGNS WT 175 LBS, HT 56.25 IN, BMI 38.88 INDEX, BP 140/90 MM HG, HR 113 /MIN, RR 18 /MIN, TEMP 97 F,4 F, OXYGEN SAT % 95%, NA INITIALS SC 10:29, REVIEWED BY: KG. ASSESSMENTS MYALGIA - M79.1 (PRIMARY) PROCEDURES PN TRIGGER POINT INJECTION WITH STEROIDS PRE PROCEDURE DIAGNOSIS 1. MYALGIA 2. PAIN AT BILATERAL LOWER BACK AREA POST PROCEDURE DIAGNOSIS 1. MYALGIA 2. PAIN AT BILATERAL LOWER BACK AREA PROCEDURE TRIGGER POINT INJECTION AT BILATERAL LOWER BACK AREA SURGEON DR. DANIELLE CAMPUZANO MUD TRUCKER NONE ANESTHESIA LOCAL PRE PROCEDURE NOTE THE PATIENT HAS A HISTORY OF CHRONIC PAIN AT THE RIGHT AND LEFT LOWER BACK AREA. I EVALUATE THE PATIENT AND REVIEWED THE CHART. THERE IS EVIDENCE OF BANDS OF TISSUE WITH RESTRICTION OF MOVEMENT AND PRESENCE OF TRIGGER POINT AT THE AFFECTED AREA. I WENT OVER THE RISKS, ALTERNATIVES, AND BENEFITS ASSOCIATED WITH THIS PROCEDURE. THE PATIENT WOULD LIKE TO PROCEED AND GIVE CONSENT TO PERFORMED THE PROCEDURE. THE PATIENT DENIES UNEXPLAINABLE WEIGHT LOSS, FEVER, CHILLS, OR NEW CHANGES IN URINARY OR BOWEL CONTROL DESCRIPTION OF PROCEDURE THE PATIENT WAS BROUGHT TO THE PROCEDURE ROOM AND PLACED IN THE SITTING POSITION. THE AREA WAS CLEANED WITH ALCOHOL. THE PROCEDURE WAS DONE USING ASEPTIC STERILE TECHNIQUE. I CHECKED LATERALITY AND THE LEVEL WHERE THE PROCEDURE WAS GOING TO BE PERFORMED WITH THE PATIENT AND THE SUPPORTING STAFF AT THE MOMENT OF THE TIME OUT IN THE PROCEDURE ROOM. USING A 25-GAUGE NEEDLE, TRIGGER POINTS WERE INJECTED AT THE RIGHT AND LEFT LOWER BACK AREA WITH A TOTAL OF 40 ML OF BUPIVACAINE 0.25% AND KENALOG 40 MG. THERE WAS NO EVIDENCE OF BLOOD, PARESTHESIA OR CEREBROSPINAL FLUID DURING THE PROCEDURE. THE PATIENT WAS SENT TO THE RECOVERY ROOM. THE PATIENT WAS MOVING THE EXTREMITIES AND DOING WELL. THERE WAS NO COMPLICATION DURING THE PROCEDURE POST PROCEDURE NOTE THE PATIENT WILL BE SEEN IN A FOLLOW UP IN THE NEXT FEW WEEKS. INSTRUCTIONS WERE GIVEN, QUESTIONS WERE ANSWERED, AND THE PATIENT EXPRESSED UNDERSTANDING AND AGREES WITH THE PLAN. I, SCAR STEPHEN, DOCUMENTED THE ABOVE INFORMATION ACTING A SCRIBE FOR DR. CAMPUZANO. I HAVE REVIEWED THE ABOVE DOCUMENT, WRITTEN BY SCAR BELTRAN AND I VERIFY THAT IT IS ACCURATE PROCEDURE CODES 17375 INJ TRIGGER POINT / MUSCL DISPOSITION & COMMUNICATION FOLLOW UP 3 WEEKS ELECTRONICALLY SIGNED BY DANIELLE CAMPUZANO MD ON 12/08/2016 AT 01:23 PM EDT DISCLAIMER : THIS IS A VISIT SUMMARY EXTRACTED FROM THE [employer] CHART. IT IS NOT A COPY OF THE [employer] PROGRESS NOTE. RONNIED
== END ==
LOC: M PAIN 10:00
PROVIDERS: ATTEND Anesthesiology
DX: G89.29 Other chronic pain (principal); M79.1 Myalgia; M54.5 Low back pain; Z79.899 Other long term (current) drug therapy; E03.9 Hypothyroidism, unspecified; I10 Essential (primary) hypertension; E55.9 Vitamin D deficiency, unspecified; R73.01 Impaired fasting glucose; F25.0 Schizoaffective disorder, bipolar type
CPT/HCPCS: 20552; J3301

== ENCOUNTER 2016-12-27 12:30 | Emergency (ER) | payer MEDICARE, MEDICAID ==
[~2016-12-27] VITALS: Ht 142.2 cm; Wt 75.0 kg
[~2016-12-27 12:30] MED LIST changes: -BUPIVACAINE HCL 0.25% 10 ML VIAL As Ordered ONE; -BUPIVACAINE HCL 0.25% 30 ML VIAL As Ordered ONE; -LISI-538 PO; -NORCOTAB PO; -TRIAMCINOLONE ACETONIDE SUSP 40 MG/ML VIAL (J3301) As Ordered ONE; -VITA200025 PO
[2016-12-27 12:31] VITALS: BP 142/92
[2016-12-27] MEDS ORDERED: VITA200025 PO (12:54)
[2016-12-27] MEDS ORDERED: LISI-538 PO (12:54)
[2016-12-27] MEDS ORDERED: NORCO, ANEXSIA 5/325MG TABLET (HYDROcodone/ACETAMINOPHEN) PO ONE (14:15)
[2016-12-27] MEDS ORDERED: NORCOTAB PO (14:38)
--- NOTE | 2016-12-27 14:50 | REP ---
Lumbar spine five views: Comparison is 04/10/2013. There is mild scoliosis convex left, possibly positional. There is bilateral L5 spondylolysis with grade 2 spondylolisthesis. This is unchanged. There is T12 L1 degenerative disc disease. There is L5 S1 degenerative disc disease st. This disease. This is unchanged. Vertebral body heights, interspacing alignment otherwise are normal and unchanged. The pedicles, facets and sacroiliac articulations are otherwise unremarkable. Impression: Mild scoliosis convex left. Bilateral L5 spondylolysis with grade 2 spondylolisthesis. There is disc space narrowing and degenerative disc disease 12 L1, unchanged. There is degenerative disc disease at L5 S1. There is no interval change. Signed by Howard Euceda MD 12/27/2016 02:32 P
== END 2016-12-27 14:49 | disposition home or self-care (01) ==
LOC: M ED 12:30
DX: M54.5 Low back pain (principal); G89.29 Other chronic pain; I10 Essential (primary) hypertension; E07.9 Disorder of thyroid, unspecified; F25.9 Schizoaffective disorder, unspecified; Z79.899 Other long term (current) drug therapy

== ENCOUNTER → 2017-01-13 | Outpatient (CLI) | payer MEDICARE, MEDICAID ==
[~2017-01-13] MED LIST changes: +LISI-538 PO; +NORCOTAB PO; +VITA200025 PO
--- NOTE | 2017-02-03 02:18 | ECWPNPC ---
PATIENT NAME: LUZMARIA FUNES : 1955 GENDER: FEMALE VISIT DATE: 01/13/2017 DISCHARGE DATE: 01/13/17 1629 VISIT LOCKED DATE TIME: PHYSICIAN: FRANCHESCA GARCIA PHYSICIAN PAGER NO: [phone] RESOURCE: FRANCHESCA GARCIA REASON FOR APPOINTMENT 1. POST PROCEDURE, STILL IN PAIN HISTORY OF PRESENT ILLNESS HISTORY OF PRESENT ILLNESS: PAIN THE PATIENT DESCRIBES THE PAIN... FALL RISK SCREENING: SCREENING :NO FALLS IN THE PAST YEAR CURRENT MEDICATIONS TAKING LEVOTHYROXINE SODIUM 50 MCG TABLET 1 TABLET ON AN EMPTY STOMACH IN THE MORNING ORALLY ONCE A DAY TAKING HYDROCODONE-ACETAMINOPHEN 5-325 MG TABLET 1 TABLET NEEDED ORALLY EVERY 6 HRS TAKING CALCIUM 500 MG TABLET 1 TABLET WITH MEALS ORALLY DAILY TAKING ROZEREM 8 MG 1 TABLET AT BEDTIME NEEDED TAKING LISINOPRIL 20 MG TABLET 1 TABLET ORALLY ONCE A DAY TAKING VITAMIN D 2000 UNIT CAPSULE 1 CAPSULE ORALLY ONCE A DAY TAKING EFFEXOR XR 75 MG CAPSULE EXTENDED RELEASE 24 HOUR 1 CAPSULE ORALLY ONCE A DAY TAKING KLONOPIN 0.5 MG TABLET 1 TAB AM 1 TAB @ NOON 2 TABS @ BEDTIME ORALLY THREE TIMES DAILY TAKING COGENTIN 0.5 MG 1 TAB(S) 2 TIMES A DAY TAKING LATUDA 80 MG TABLET 2 TABLETS WITH FOOD ORALLY DAILY TAKING EFFEXOR XR 150 MG CAPSULE EXTENDED RELEASE 24 HOUR 1 CAPSULE WITH FOOD ORALLY ONCE A DAY TAKING EVISTA 60 MG TABLET 1 TABLET ORALLY ONCE A DAY TAKING TIZANIDINE HCL 2 MG TABLET 1 TABLET ORALLY TAKE 1 AT MIDDAY AND 1 TAB AT BEDTIME TAKING IBUPROFEN 600 MG TABLET 1 TABLET ORALLY THREE TIMES A DAY TAKING BIOFREEZE ROLL-ON 4 % GEL 1 APPLICATION TO AFFECTED AREA NEEDED EXTERNALLY ONCE A DAY NOT-TAKING MUSCLE RUB ULTRA STRENGTH 8-30 % CREAM ONE APPLICATION TOPICALLY FOUR TIMES A DAY UNKNOWN VITAMIN C & D3/BETH HIPS 500-1000-20 MG-UNIT-MG CAPSULE ORALLY DAILY MEDICATION LIST REVIEWED AND RECONCILED WITH THE PATIENT PAST MEDICAL HISTORY HYPOTHYROIDISM MYOPIC ASTIGMATISM CALCANEAL SPURS ASTHMA, MILD INTERMITTENT IFG OSTEOPENIA, DEXA 01/18, T SCORE -2, AT SPINE 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 SCHIZOAFFECTIVE D/O WITH BIPOLAR FEATURES 11/15 EKG NEG PN 11/18 MORBID OBESITY MEMORY IMPAIRMENT, NEG WORK UP 06/18. XR LS SPINE 2/14 MILD SCOLIOSISCONVEX L/ BILATERAL L5 SPONDYLOLYSIS WITH GRADE 2 SPODYLOLITHESIS/ADV L5-S1 DDD/MOD T12-L1 DDD JOSEPH 09/18 FEV1 2.19 MRI LSPINE 12/19 - DIFFUSE DISC BULGE AT L4-5, L5-S1 WITH MIN THECAL SAC COMPRESSION, GRADE 2 SPONDYLOLITHESIS OF L5 ON S1 WITH ASSOC L5 PARS DEFECT, THERE IS COMPRESSION OF THE L5 NERVES IN THE NEURAL FORAMINA. ALLERGIES N.K.D.A. SOCIAL HISTORY GENERAL: TOBACCO USE ARE YOU A:NONSMOKER NEVER SMOKER BMI CARE GOAL FOLLOW-UP ABOVE NORMAL BMI FOLLOW-UPDIETARY MANAGEMENT EDUCATION, GUIDANCE, AND COUNSELING ALCOHOL SCREENING DID YOU HAVE A DRINK CONTAINING ALCOHOL IN THE PAST YEAR?NO POINTS0 INTERPRETATIONNEGATIVE RECREATIONAL DRUG USE DRUG USE?NO CAFFEINE CAFFEINE USE?YES DIET PEPSI- 1/DAY SEXUAL HX HAD SEX IN THE LAST 12 MONTHS (VAGINAL, ORAL, OR ANAL)?NO HAVE YOU EVER HAD AN STD?NO HIV / HEP-C SCREENING HIV TEST OFFERED TO PATIENT:YES DATE OFFERED:05/27/2016 TEST ACCEPTED:NO REASON:PATIENT DECLINED HEP-C TEST OFFERED TO PATIENT:YES DATE OFFERED:05/27/2016 TEST ACCEPTED:NO REASON:PATIENT DECLINED OCCUPATION: DISABLED. DIET: REGULAR. EXERCISE: WALKS. MARITAL STATUS: SINGLE. OTHERS AT HOME: NONE. PETS: CAT-. CHRISTIAN [employer]DAEN. LANGUAGE [employer]. EDUCATION 12 TH GRADE GRADUATE. LEARNING BARRIERS / SPECIAL NEEDS CHANGE FROM LAST VISIT?NO BARRIERS TO LEARNING?NO HEARING IMPAIRED?NO VISION IMPAIRED?YES :CORRECTIVE LENSES COGNITIVELY IMPAIRED?NO READINESS TO LEARN?YES LEARNING PREFERENCES?NO LEARNING CAPABILITIES PRESENT?YES EMOTIONAL BARRIERS?NO SPECIAL DEVICES?NO AC/DC REWINDER NEEDED?NO NEW PATIENT PAIN DIARY TODAY'S VISIT NOTES, FROM 0-10, WHAT LEVEL IS YOUR PAIN TODAY? 0. PAIN CLINIC PFS, CLERGY, PUBLIC HEALTH REFERRALS PFS REFERRAL NEEDED?NO CLERGY REFERRAL NEEDED?NO PUBLIC HEALTH REFERRAL NEEDED?NO WAS THE PROVIDER NOTIFIED OF ANY PERTINENT INFO?YES HAS THE PATIENT BEEN EDUCATED REGARDING HIS/HER PLAN OF CARE?YES HAS THE PATIENT BEEN EDUCATED REGARDING PAIN, THE RISK FOR PAIN, THE IMPORTANCE OF EFFECTIVE PAIN MANAGEMENT, AND THE PAIN ASSESSMENT PROCESS?YES TRAVEL OUTSIDE US: NO. DOMESTIC VIOLENCE DO YOU FEEL SAFE IN YOUR ENVIRONMENT?YES REVIEW OF SYSTEMS REVIEWED BY: PROVIDER: . CONSTITUTIONAL: ANY CHANGE IN YOUR MEDICAL CONDITION? NO . CHILLS NO . FEVER NO . INFECTION: DO YOU HAVE NEW INFECTIONS? NO . DO YOU HAVE HISTORY OF MRSA? NO . MUSCULOSKELETAL: ANY NEW PATTERNS OF PAIN OR NUMBNESS? NO . GASTROENTEROLOGY: ANY NEW CHANGE IN BOWEL CONTROL? NO . GENITOURINARY: ANY NEW CHANGE IN BLADDER CONTROL? NO . IS THERE A CHANCE YOU COULD BE ? NO . HEMATOLOGY/LYMPH: DO YOU TAKE ANY BLOOD THINNERS? (FOR EXAMPLE- COUMADIN, PLAVIX, AGGRENOX, PLATEL, PRADAXA, OR XARELTO) NO . WHEN WAS YOUR LAST DOSE? DATE: TIME: . NEUROLOGY: HAVE YOU FALLEN IN THE PAST 6 MONTHS? NO . ANY NEW EXTREMITY NUMBNESS OR WEAKNESS? NO . CARDIOLOGY: DO YOU HAVE A PACEMAKER OR DEFIBRILLATOR? NO . RESPIRATORY: HAVE YOU BEEN SICK IN THE PAST WEEK? NO . FEVER NO . FLU LIKE SYMPTOMS? NO . COUGH NO . INTEGUMENTARY: DO YOU HAVE ANY RASHES OR OPEN SORES? NO . ALLERGIC/IMMUNO: ARE YOU ALLERGIC TO SHELLFISH OR IV DYE? NO . ANY NEW ALLERGIES? NO . PSYCHIATRIC: DO YOU HAVE THOUGHTS OF HURTING YOURSELF OR SOMEONE ELSE? NO . ARE YOU ABUSED, NEGLECTED, OR IN AN UNSAFE ENVIRONMENT? NO . ENDOCRINOLOGY: ARE YOU DIABETIC? NO . OTHER: DO YOU NEED ANY PRESCRIPTIONS? YES, IBRUPROFEN . IF YES, PLEASE LIST: ____ . ANY NEW PROBLEMS WITH YOUR MEDICATIONS? NO . WHEN DID YOU LAST EAT? ____ . WHEN DID YOU LAST DRINK? ____ . WHAT DID YOU LAST DRINK? ____ . NAME OF PERSON DRIVING YOU HOME? ____ . DO YOU HAVE ANY OTHER QUESTIONS OR CONCERNS WANTS TO GET NEW MEDICATIONS . VITAL SIGNS WT 165 LBS, HT 56.25 IN, BMI 36.66 INDEX, BP 132/82 MM HG, HR 86 /MIN, RR 18 /MIN, TEMP 99.3 F, OXYGEN SAT % 99%, NA INITIALS SC 15:36. ASSESSMENTS MYALGIA - M79.1 (PRIMARY) SPINAL STENOSIS OF LUMBOSACRAL REGION - M48.07 TREATMENT MYALGIA STOP IBUPROFEN TABLET, 600 MG, 1 TABLET, ORALLY, THREE TIMES A DAY NOTES: USE BIOFREEZE TO LOW BACK DAILY. WALK AND DO STRETCHES EVERY DAY. WILL DISPOSE OF IBUPROFEN. NO NEW MEDS. PROCEDURE CODES FA211 ESTABILISHED PATIENT [facility] CHARGE DISPOSITION & COMMUNICATION FOLLOW UP 3 MONTHS (REASON: LOW BACK PAIN) ELECTRONICALLY SIGNED BY SISI MOLINA ON 02/02/2017 AT 08:37 AM EST DISCLAIMER : THIS IS A VISIT SUMMARY EXTRACTED FROM THE [employer] CHART. IT IS NOT A COPY OF THE [employer] PROGRESS NOTE. ALEXANDRA
== END ==
LOC: M PAIN 14:45
PROVIDERS: ATTEND Nurse Practitioner Family
DX: M79.1 Myalgia (principal); M48.07 Spinal stenosis, lumbosacral region; E03.9 Hypothyroidism, unspecified; E55.9 Vitamin D deficiency, unspecified; I10 Essential (primary) hypertension; Z79.891 Long term (current) use of opiate analgesic; Z79.899 Other long term (current) drug therapy

== ENCOUNTER → 2017-01-20 | Outpatient (CLI) | payer MEDICARE, MEDICAID | LOC: M PAIN 11:30 | PROVIDERS: ATTEND Nurse Practitioner Family | DX: Z53.8 Procedure and treatment not carried out for other reasons (principal) ==

== ENCOUNTER → 2017-04-13 | Outpatient (CLI) | payer MEDICARE, MEDICAID | LOC: M PAIN 10:15 | DX: M48.07 Spinal stenosis, lumbosacral region (principal); M79.1 Myalgia; E03.9 Hypothyroidism, unspecified; J45.909 Unspecified asthma, uncomplicated; E55.9 Vitamin D deficiency, unspecified; F25.9 Schizoaffective disorder, unspecified; E66.01 Morbid (severe) obesity due to excess calories; Z68.38 Body mass index [BMI] 38.0-38.9, adult; M85.88 Other specified disorders of bone density and structure, other site; Z79.899 Other long term (current) drug therapy | CPT/HCPCS: G0463 ==

== ENCOUNTER 2017-05-21 14:14 | Inpatient (IN) | payer MEDICARE, MEDICAID ==
[2017-05-21 14:56] LABS: HEMATOCRIT 34.6 % (36.0-47.0); HEMOGLOBIN 12.2 g/dl (12.0-16.0); MEAN CORPUSCULAR HEMOGLOBIN 30.4 pg (27.0-33.0); MEAN CORPUSCULAR HGB CONC 35.3 g/dl (32.0-36.5); MEAN CORPUSCULAR VOLUME 86.3 fl (80.0-96.0); PLATELET COUNT, AUTOMATED 338 10^3/uL (150-450); RED BLOOD COUNT 4.01 10^6/uL (4.00-5.40); RED CELL DISTRIBUTION WIDTH 12.8 % (11.5-14.5); WHITE BLOOD COUNT 9.4 10^3/uL (4.0-10.0)
[2017-05-21 15:20] LABS: ACETAMINOPHEN LEVEL < 2.0 UG/ML (10.0-30.0); ALBUMIN 4.2 GM/DL (3.2-5.2); ALBUMIN/GLOBULIN RATIO 1.68 (1.00-1.93); ALKALINE PHOSPHATASE 56 U/L (45-117); ALT/SGPT 33 U/L (12-78); ANION GAP 11 MEQ/L (8-16); AST/SGOT 26 U/L (7-37); BILIRUBIN,DIRECT 0.1 MG/DL (0.0-0.2); BILIRUBIN,TOTAL 0.4 MG/DL (0.2-1.0); BLOOD UREA NITROGEN 8 MG/DL (7-18); CALCIUM LEVEL 8.4 MG/DL (8.5-10.1); CARBON DIOXIDE LEVEL 23 MEQ/L (21-32); CHLORIDE LEVEL 91 MEQ/L (98-107); CREATININE FOR GFR 0.63 MG/DL (0.55-1.30); GLOMERULAR FILTRATION RATE > 60.0 (>51); GLUCOSE, FASTING 101 MG/DL (70-100); POTASSIUM SERUM 4.4 MEQ/L (3.5-5.1); SALICYLATE LEVEL 1.8 MG/DL (5.0-30.0); SODIUM LEVEL 125 MEQ/L (136-145); TOTAL PROTEIN 6.7 GM/DL (6.4-8.2)
[2017-05-21 15:25] LABS: ETHYL ALCOHOL (ETHANOL) < 0.003 % (0.000-0.010)
[2017-05-21] MEDS: clonazePAM 0.5 MG TAB PO (16:25)
[2017-05-21 18:18] LABS: AMPHETAMINES LEVEL URINE NEGATIVE (NEGATIVE); BARBITURATES URINE NEGATIVE (NEGATIVE); BENZODIAZEPINES URINE NEGATIVE (NEGATIVE); CANNABINOIDS URINE NEGATIVE (NEGATIVE); COCAINE METABOLITE URINE NEGATIVE (NEGATIVE); METHADONE URINE NEGATIVE (NEGATIVE); OPIATES URINE NEGATIVE (NEGATIVE); PHENCYCLIDINE URINE NEGATIVE (NEGATIVE)
[2017-05-21 19:37] LABS: FREE T4 1.07 NG/DL (0.76-1.46)
[2017-05-21 19:40] LABS: OSMOLALITY URINE 201 MOSM/KG (500-800)
[2017-05-21 19:40] LABS: OSMOLALITY SERUM 255 MOSM/KG (275-295)
[2017-05-21 19:52] LABS: CREATININE,RANDOM URINE 51.8 MG/DL; SODIUM,RANDOM URINE 10 MEQ/L
[2017-05-21] MEDS ORDERED: MAALOX 30 ML SUSP *UDC PO (21:00)
[2017-05-21] MEDS: RAMELTEON 8 MG TAB (ROZEREM) PO (23:08)
[2017-05-21] MEDS: clonazePAM 1 MG TAB PO (23:08)
[2017-05-21] MEDS: OLANZapine 5 MG TAB PO (23:09)
[2017-05-21] MEDS: diphenhydrAMINE 50 MG CAP PO (23:48)
[2017-05-21] MEDS: ACETAMINOPHEN TAB 650MG DOSE (2X325MG) PO (23:49)
[2017-05-21] MEDS: tiZANidine 4 MG TAB PO (23:50)
[2017-05-22] MEDS: LEVOTHYROXINE 50MCG TABLET (0.05MG) PO (06:00)
[2017-05-22] MEDS: BENZTROPINE 0.5 MG TAB PO ×2 (08:18→20:17)
[2017-05-22] MEDS: IBUPROFEN 600 MG TAB PO ×3 (08:18→20:17)
[2017-05-22] MEDS: clonazePAM 0.5 MG TAB PO ×2 (08:18→15:16)
[2017-05-22] MEDS: MULTIVITAMINS/MINERALS THERAP 1 TAB PO (08:18)
[2017-05-22] MEDS: VITAMIN D 1,000 INTERNATIONAL UNITS TABLET PO (08:18)
[2017-05-22] MEDS: VENLAFAXINE **XR** 75MG CAPSULE PO (08:18)
[2017-05-22] MEDS: LISINOPRIL 20 MG TAB PO (08:18)
[2017-05-22] MEDS ORDERED: VENLAFAXINE 37.5 MG TAB PO (09:00)
[2017-05-22] MEDS: ACETAMINOPHEN TAB 650MG DOSE (2X325MG) PO (09:53)
[2017-05-22] MEDS: tiZANidine 4 MG TAB PO ×2 (15:18→23:32)
[2017-05-22] MEDS: RAMELTEON 8 MG TAB (ROZEREM) PO (20:17)
[2017-05-22] MEDS: clonazePAM 1 MG TAB PO (20:17)
[2017-05-23] MEDS: LEVOTHYROXINE 50MCG TABLET (0.05MG) PO (06:00)
[2017-05-23] MEDS: IBUPROFEN 600 MG TAB PO (08:11)
[2017-05-23] MEDS: MULTIVITAMINS/MINERALS THERAP 1 TAB PO (08:11)
[2017-05-23] MEDS: BENZTROPINE 0.5 MG TAB PO ×2 (08:11→20:44)
[2017-05-23] MEDS: clonazePAM 0.5 MG TAB PO ×2 (08:11→15:04)
[2017-05-23] MEDS: VITAMIN D 1,000 INTERNATIONAL UNITS TABLET PO (08:11)
[2017-05-23] MEDS: VENLAFAXINE **XR** 75MG CAPSULE PO (08:11)
[2017-05-23] MEDS: LISINOPRIL 20 MG TAB PO (08:12)
[2017-05-23] MEDS: ACETAMINOPHEN TAB 650MG DOSE (2X325MG) PO (13:02)
[2017-05-23] MEDS: tiZANidine 4 MG TAB PO (13:02)
[2017-05-23] MEDS: [UNRECOGNIZED DRUG - OTHER] PO (15:04)
[2017-05-23] MEDS: RAMELTEON 8 MG TAB (ROZEREM) PO (20:44)
[2017-05-23] MEDS: ARIPiprazole 10 MG TAB PO (20:44)
[2017-05-23] MEDS: clonazePAM 1 MG TAB PO (20:44)
[2017-05-23] MEDS: ANALGESIC BALM CRM 120 GM TOP (20:44)
[2017-05-23 20:53] LABS: ALBUMIN 3.9 GM/DL (3.2-5.2); ALBUMIN/GLOBULIN RATIO 1.26 (1.00-1.93); ALKALINE PHOSPHATASE 55 U/L (45-117); ALT/SGPT 36 U/L (12-78); ANION GAP 9 MEQ/L (8-16); AST/SGOT 22 U/L (7-37); BILIRUBIN,TOTAL 0.2 MG/DL (0.2-1.0); BLOOD UREA NITROGEN 13 MG/DL (7-18); CALCIUM LEVEL 8.6 MG/DL (8.5-10.1); CARBON DIOXIDE LEVEL 27 MEQ/L (21-32); CHLORIDE LEVEL 98 MEQ/L (98-107); CREATININE FOR GFR 0.63 MG/DL (0.55-1.30); GLOMERULAR FILTRATION RATE > 60.0 (>51); GLUCOSE, FASTING 89 MG/DL (70-100); POTASSIUM SERUM 4.4 MEQ/L (3.5-5.1); SODIUM LEVEL 134 MEQ/L (136-145)
[2017-05-24] MEDS: LEVOTHYROXINE 50MCG TABLET (0.05MG) PO (06:08)
[2017-05-24] MEDS: LISINOPRIL 20 MG TAB PO (08:34)
[2017-05-24] MEDS: VITAMIN D 1,000 INTERNATIONAL UNITS TABLET PO (08:34)
[2017-05-24] MEDS: MULTIVITAMINS/MINERALS THERAP 1 TAB PO (08:34)
[2017-05-24] MEDS: clonazePAM 0.5 MG TAB PO ×3 (08:34→21:21)
[2017-05-24] MEDS: VENLAFAXINE **XR** 75MG CAPSULE PO (08:34)
[2017-05-24] MEDS: BENZTROPINE 0.5 MG TAB PO ×2 (08:34→21:21)
[2017-05-24] MEDS: ANALGESIC BALM CRM 120 GM TOP ×2 (08:35→21:22)
[2017-05-24] MEDS: [UNRECOGNIZED DRUG - OTHER] PO (08:35)
[2017-05-24] MEDS: HALOPERIDOL 0.5 MG TAB PO ×3 (09:00→21:21)
[2017-05-24] MEDS: IBUPROFEN 600 MG TAB PO ×2 (09:19→17:18)
[2017-05-24] MEDS: RAMELTEON 8 MG TAB (ROZEREM) PO (21:20)
[2017-05-25] MEDS: IBUPROFEN 600 MG TAB PO (01:03)
[2017-05-25] MEDS: LEVOTHYROXINE 50MCG TABLET (0.05MG) PO (06:15)
[2017-05-25] MEDS: ANALGESIC BALM CRM 120 GM TOP ×2 (08:17→21:13)
[2017-05-25] MEDS: clonazePAM 0.5 MG TAB PO ×3 (08:17→21:12)
[2017-05-25] MEDS: HALOPERIDOL 0.5 MG TAB PO (08:17)
[2017-05-25] MEDS: VITAMIN D 1,000 INTERNATIONAL UNITS TABLET PO (08:17)
[2017-05-25] MEDS: [UNRECOGNIZED DRUG - OTHER] PO (08:17)
[2017-05-25] MEDS: VENLAFAXINE **XR** 75MG CAPSULE PO (08:17)
[2017-05-25] MEDS: MULTIVITAMINS/MINERALS THERAP 1 TAB PO (08:17)
[2017-05-25] MEDS: BENZTROPINE 0.5 MG TAB PO ×2 (08:17→21:12)
[2017-05-25] MEDS: LISINOPRIL 20 MG TAB PO (08:19)
[2017-05-25 08:49] LABS: ALBUMIN 3.9 GM/DL (3.2-5.2); ALBUMIN/GLOBULIN RATIO 1.44 (1.00-1.93); ALKALINE PHOSPHATASE 56 U/L (45-117); ALT/SGPT 32 U/L (12-78); ANION GAP 5 MEQ/L (8-16); AST/SGOT 13 U/L (7-37); BILIRUBIN,TOTAL 0.2 MG/DL (0.2-1.0); BLOOD UREA NITROGEN 8 MG/DL (7-18); CALCIUM LEVEL 8.7 MG/DL (8.5-10.1); CARBON DIOXIDE LEVEL 30 MEQ/L (21-32); CHLORIDE LEVEL 103 MEQ/L (98-107); CREATININE FOR GFR 0.69 MG/DL (0.55-1.30); GLOMERULAR FILTRATION RATE > 60.0 (>51); GLUCOSE, FASTING 95 MG/DL (70-100); POTASSIUM SERUM 4.9 MEQ/L (3.5-5.1); SODIUM LEVEL 138 MEQ/L (136-145); TOTAL PROTEIN 6.6 GM/DL (6.4-8.2)
[2017-05-25] MEDS: MOM 30ML SUSPENSION UDC PO (09:52)
[2017-05-25] MEDS: ACETAMINOPHEN TAB 650MG DOSE (2X325MG) PO (09:56)
[2017-05-25] MEDS: HALOPERIDOL 1 MG TAB PO (21:12)
[2017-05-25] MEDS: RAMELTEON 8 MG TAB (ROZEREM) PO (21:12)
[2017-05-26] MEDS: LEVOTHYROXINE 50MCG TABLET (0.05MG) PO (06:08)
[2017-05-26] MEDS: BENZTROPINE 0.5 MG TAB PO ×2 (08:06→20:17)
[2017-05-26] MEDS: ANALGESIC BALM CRM 120 GM TOP ×2 (08:06→20:18)
[2017-05-26] MEDS: HALOPERIDOL 1 MG TAB PO (08:06)
[2017-05-26] MEDS: [UNRECOGNIZED DRUG - OTHER] PO (08:06)
[2017-05-26] MEDS: VITAMIN D 1,000 INTERNATIONAL UNITS TABLET PO (08:06)
[2017-05-26] MEDS: clonazePAM 0.5 MG TAB PO ×4 (08:06→20:22)
[2017-05-26] MEDS: MULTIVITAMINS/MINERALS THERAP 1 TAB PO (08:06)
[2017-05-26] MEDS: VENLAFAXINE **XR** 75MG CAPSULE PO (08:06)
[2017-05-26] MEDS: LISINOPRIL 20 MG TAB PO (08:08)
[2017-05-26] MEDS: IBUPROFEN 600 MG TAB PO (09:03)
[2017-05-26] MEDS: MOM 30ML SUSPENSION UDC PO (10:00)
[2017-05-26] MEDS: PILL CUTTER/CRUSHER XX (17:09)
[2017-05-26] MEDS: HALOPERIDOL 0.5 MG TAB PO (20:17)
[2017-05-26] MEDS: RAMELTEON 8 MG TAB (ROZEREM) PO (20:17)
[2017-05-27] MEDS: LEVOTHYROXINE 50MCG TABLET (0.05MG) PO (05:52)
[2017-05-27] MEDS: MULTIVITAMINS/MINERALS THERAP 1 TAB PO (08:11)
[2017-05-27] MEDS: HALOPERIDOL 0.5 MG TAB PO ×2 (08:11→20:10)
[2017-05-27] MEDS: VENLAFAXINE **XR** 75MG CAPSULE PO (08:11)
[2017-05-27] MEDS: LISINOPRIL 20 MG TAB PO (08:11)
[2017-05-27] MEDS: VITAMIN D 1,000 INTERNATIONAL UNITS TABLET PO (08:11)
[2017-05-27] MEDS: BENZTROPINE 0.5 MG TAB PO ×2 (08:12→20:10)
[2017-05-27] MEDS: clonazePAM 0.5 MG TAB PO ×2 (08:12→20:24)
[2017-05-27] MEDS: [UNRECOGNIZED DRUG - OTHER] PO (08:13)
[2017-05-27] MEDS: ANALGESIC BALM CRM 120 GM TOP ×2 (08:14→20:10)
[2017-05-27] MEDS: ACETAMINOPHEN TAB 650MG DOSE (2X325MG) PO (09:01)
[2017-05-27] MEDS: RAMELTEON 8 MG TAB (ROZEREM) PO (20:10)
[2017-05-28] MEDS: LEVOTHYROXINE 50MCG TABLET (0.05MG) PO (06:00)
[2017-05-28] MEDS: [UNRECOGNIZED DRUG - OTHER] PO (08:49)
[2017-05-28] MEDS: VENLAFAXINE **XR** 75MG CAPSULE PO (08:49)
[2017-05-28] MEDS: VITAMIN D 1,000 INTERNATIONAL UNITS TABLET PO (08:50)
[2017-05-28] MEDS: BENZTROPINE 0.5 MG TAB PO (08:50)
[2017-05-28] MEDS: LISINOPRIL 20 MG TAB PO (08:50)
[2017-05-28] MEDS: MULTIVITAMINS/MINERALS THERAP 1 TAB PO (08:50)
[2017-05-28] MEDS: HALOPERIDOL 0.5 MG TAB PO (08:50)
[2017-05-28] MEDS: ANALGESIC BALM CRM 120 GM TOP (08:53)
== END 2017-05-28 14:07 | disposition home or self-care (01) | DRG 885 ==
LOC: M ED 14:14 → M ED INP 20:51 → M PSY 22:12
DX: F25.9 Schizoaffective disorder, unspecified (principal); E03.9 Hypothyroidism, unspecified; G47.00 Insomnia, unspecified; M54.5 Low back pain; J45.20 Mild intermittent asthma, uncomplicated; G31.84 Mild cognitive impairment of uncertain or unknown etiology; M85.80 Other specified disorders of bone density and structure, unspecified site; E55.9 Vitamin D deficiency, unspecified; E66.01 Morbid (severe) obesity due to excess calories; Z68.37 Body mass index [BMI] 37.0-37.9, adult; Z79.899 Other long term (current) drug therapy

== ENCOUNTER 2017-06-15 10:12 | Inpatient (IN) | payer MEDICARE, MEDICAID ==
[2017-06-15 11:10] LABS: HEMATOCRIT 33.6 % (36.0-47.0); HEMOGLOBIN 11.9 g/dl (12.0-15.5); MEAN CORPUSCULAR HEMOGLOBIN 30.5 pg (27.0-33.0); MEAN CORPUSCULAR HGB CONC 35.4 g/dl (32.0-36.5); MEAN CORPUSCULAR VOLUME 86.2 fl (80.0-96.0); PLATELET COUNT, AUTOMATED 327 10^3/uL (150-450); RED CELL DISTRIBUTION WIDTH 13.3 % (11.5-14.5); WHITE BLOOD COUNT 10.8 10^3/uL (4.0-10.0)
[2017-06-15 11:19] LABS: AMMONIA 24 uMOL/L (<32)
[2017-06-15 11:32] LABS: ACETAMINOPHEN LEVEL < 2.0 UG/ML (10.0-30.0); ALBUMIN 3.7 GM/DL (3.2-5.2); ALBUMIN/GLOBULIN RATIO 1.28 (1.00-1.93); ALKALINE PHOSPHATASE 67 U/L (45-117); ALT/SGPT 31 U/L (12-78); ANION GAP 9 MEQ/L (8-16); AST/SGOT 38 U/L (7-37); BILIRUBIN,DIRECT 0.1 MG/DL (0.0-0.2); BILIRUBIN,TOTAL 0.3 MG/DL (0.2-1.0); CALCIUM LEVEL 8.2 MG/DL (8.5-10.1); CARBON DIOXIDE LEVEL 23 MEQ/L (21-32); CHLORIDE LEVEL 99 MEQ/L (98-107); CREATININE FOR GFR 0.66 MG/DL (0.55-1.30); GLOMERULAR FILTRATION RATE > 60.0 (>51); GLUCOSE, FASTING 108 MG/DL (70-100); POTASSIUM SERUM 4.3 MEQ/L (3.5-5.1); SALICYLATE LEVEL < 1.7 MG/DL (5.0-30.0); SODIUM LEVEL 131 MEQ/L (136-145); TOTAL PROTEIN 6.6 GM/DL (6.4-8.2)
[2017-06-15 11:37] LABS: BLOOD UREA NITROGEN 7 MG/DL (7-18)
[2017-06-15 11:44] LABS: ETHYL ALCOHOL (ETHANOL) < 0.003 % (0.000-0.010)
[2017-06-15 11:46] LABS: AMPHETAMINES LEVEL URINE NEGATIVE (NEGATIVE); BARBITURATES URINE NEGATIVE (NEGATIVE); BENZODIAZEPINES URINE NEGATIVE (NEGATIVE); CANNABINOIDS URINE NEGATIVE (NEGATIVE); COCAINE METABOLITE URINE NEGATIVE (NEGATIVE); METHADONE URINE NEGATIVE (NEGATIVE); OPIATES URINE NEGATIVE (NEGATIVE); PHENCYCLIDINE URINE NEGATIVE (NEGATIVE)
[2017-06-15 13:03] LABS: APPEARANCE, URINE CLEAR (CLEAR); BACTERIA, URINE AUTO 1+ (NEGATIVE); BILIRUBIN, URINE AUTO NEGATIVE (NEGATIVE); BLOOD, URINE BLOOD NEGATIVE (NEGATIVE); COLOR, URINE STRAW (YELLOW); GLUCOSE, URINE (UA) AUTO NEGATIVE (NEGATIVE); KETONE, URINE AUTO NEGATIVE (NEGATIVE); LEUKOCYTE ESTERASE, URINE AUTO 3+ (NEGATIVE); NITRITE, URINE AUTO NEGATIVE (NEGATIVE); PROTEIN, URINE AUTO NEGATIVE (NEGATIVE); RBC, URINE AUTO 0 /HPF (0-3); SPECIFIC GRAVITY URINE AUTO 1.004 (1.002-1.035); SQUAMOUS EPITHELIAL CELL UR AU 0 /HPF (0-6); UROBILINOGEN, URINE AUTO 0.2 mg/dL (0.0-2.0); WBC, URINE AUTO 4 /HPF (0-3)
[2017-06-15] MEDS ORDERED: PILL CRUSHER/CUTTER 1 EACH XX (16:00)
[2017-06-15] MEDS ORDERED: RAMELTEON 8 MG TAB (ROZEREM) PO (21:00)
[2017-06-15] MEDS ORDERED: traZODone 50 MG TAB PO ×2 (21:00)
[2017-06-15] MEDS ORDERED: HALOPERIDOL 0.5 MG TAB PO (21:00)
[2017-06-15] MEDS: clonazePAM 0.5 MG TAB PO (21:03)
[2017-06-15] MEDS: RAMELTEON 8 MG TAB (ROZEREM) PO (21:03)
[2017-06-15] MEDS: BENZTROPINE 0.5 MG TAB PO (21:03)
[2017-06-15] MEDS: risperiDONE 2 MG TAB PO (21:03)
[2017-06-16] MEDS: LEVOTHYROXINE 50MCG TABLET (0.05MG) PO (05:59)
[2017-06-16] MEDS: BENZTROPINE 0.5 MG TAB PO ×2 (08:47→20:54)
[2017-06-16] MEDS: clonazePAM 0.5 MG TAB PO ×2 (08:47→11:02)
[2017-06-16] MEDS: VITAMIN D 1,000 INTERNATIONAL UNITS TABLET PO (08:47)
[2017-06-16] MEDS: LISINOPRIL 20 MG TAB PO (08:48)
[2017-06-16] MEDS: VENLAFAXINE **XR** 75MG CAPSULE PO (08:48)
[2017-06-16] MEDS: MULTIVITAMINS/MINERALS THERAP 1 TAB PO (08:48)
[2017-06-16 11:03] LABS: HEMOGLOBIN 13.2 g/dl (12.0-15.5); MEAN CORPUSCULAR HEMOGLOBIN 29.9 pg (27.0-33.0); MEAN CORPUSCULAR HGB CONC 33.8 g/dl (32.0-36.5); MEAN CORPUSCULAR VOLUME 88.4 fl (80.0-96.0); PLATELET COUNT, AUTOMATED 325 10^3/uL (150-450); RED BLOOD COUNT 4.41 10^6/uL (4.00-5.40); WHITE BLOOD COUNT 7.7 10^3/uL (4.0-10.0)
[2017-06-16 11:24] LABS: ALBUMIN 3.7 GM/DL (3.2-5.2); ALBUMIN/GLOBULIN RATIO 1.28 (1.00-1.93); ALKALINE PHOSPHATASE 63 U/L (45-117); ALT/SGPT 32 U/L (12-78); ANION GAP 6 MEQ/L (8-16); AST/SGOT 28 U/L (7-37); BILIRUBIN,TOTAL 0.2 MG/DL (0.2-1.0); BLOOD UREA NITROGEN 10 MG/DL (7-18); CALCIUM LEVEL 8.7 MG/DL (8.5-10.1); CARBON DIOXIDE LEVEL 29 MEQ/L (21-32); CHLORIDE LEVEL 104 MEQ/L (98-107); CREATININE FOR GFR 0.69 MG/DL (0.55-1.30); GLOMERULAR FILTRATION RATE > 60.0 (>51); GLUCOSE, FASTING 97 MG/DL (70-100); POTASSIUM SERUM 4.8 MEQ/L (3.5-5.1); SODIUM LEVEL 139 MEQ/L (136-145); TOTAL PROTEIN 6.6 GM/DL (6.4-8.2)
[2017-06-16 12:40] LABS: KETONE, URINE AUTO RFX NEGATIVE (NEGATIVE); LEUKOCYTE ESTERASE UR AUTO RFX NEGATIVE (NEGATIVE); MUCUS, URINE RFX SMALL (NEGATIVE); NITRITE, URINE AUTO RFX NEGATIVE (NEGATIVE); RBC, URINE AUTO RFX 1 /HPF (0-3); SPECIFIC GRAVITY UR AUTO RFX 1.009 (1.002-1.035); SQUAM EPITHELIAL CELL UR AURFX 0 /HPF (0-6); WBC, URINE AUTO RFX 2 /HPF (0-3)
[2017-06-16] MEDS: ANALGESIC BALM CRM 120 GM TOP (16:42)
[2017-06-16] MEDS: risperiDONE 2 MG TAB PO (20:54)
[2017-06-16] MEDS: RAMELTEON 8 MG TAB (ROZEREM) PO (20:54)
[2017-06-16] MEDS: clonazePAM 1 MG TAB PO (20:55)
[2017-06-17] MEDS: LEVOTHYROXINE 50MCG TABLET (0.05MG) PO (06:15)
[2017-06-17 07:59] LABS: HEMATOCRIT 38.9 % (36.0-47.0); HEMOGLOBIN 12.9 g/dl (12.0-15.5); MEAN CORPUSCULAR HEMOGLOBIN 30.1 pg (27.0-33.0); MEAN CORPUSCULAR HGB CONC 33.2 g/dl (32.0-36.5); MEAN CORPUSCULAR VOLUME 90.9 fl (80.0-96.0); PLATELET COUNT, AUTOMATED 318 10^3/uL (150-450); RED BLOOD COUNT 4.28 10^6/uL (4.00-5.40); RED CELL DISTRIBUTION WIDTH 14.2 % (11.5-14.5); WHITE BLOOD COUNT 6.6 10^3/uL (4.0-10.0)
[2017-06-17 08:14] LABS: ANION GAP 5 MEQ/L (8-16); BLOOD UREA NITROGEN 17 MG/DL (7-18); CALCIUM LEVEL 8.7 MG/DL (8.5-10.1); CARBON DIOXIDE LEVEL 30 MEQ/L (21-32); CHLORIDE LEVEL 104 MEQ/L (98-107); CREATININE FOR GFR 0.73 MG/DL (0.55-1.30); GLOMERULAR FILTRATION RATE > 60.0 (>51); GLUCOSE, FASTING 90 MG/DL (70-100); POTASSIUM SERUM 4.9 MEQ/L (3.5-5.1); SODIUM LEVEL 139 MEQ/L (136-145)
[2017-06-17] MEDS: LISINOPRIL 20 MG TAB PO (08:14)
[2017-06-17] MEDS: VENLAFAXINE **XR** 75MG CAPSULE PO (08:14)
[2017-06-17] MEDS: MULTIVITAMINS/MINERALS THERAP 1 TAB PO (08:14)
[2017-06-17] MEDS: BENZTROPINE 0.5 MG TAB PO ×2 (08:14→20:35)
[2017-06-17] MEDS: clonazePAM 1 MG TAB PO ×2 (08:14→20:35)
[2017-06-17] MEDS: VITAMIN D 1,000 INTERNATIONAL UNITS TABLET PO (08:14)
[2017-06-17 16:56] LABS: APPEARANCE, URINE CLEAR (CLEAR); BACTERIA, URINE AUTO NEGATIVE (NEGATIVE); BILIRUBIN, URINE AUTO NEGATIVE (NEGATIVE); BLOOD, URINE BLOOD NEGATIVE (NEGATIVE); COLOR, URINE YELLOW (YELLOW); GLUCOSE, URINE (UA) AUTO NEGATIVE (NEGATIVE); KETONE, URINE AUTO NEGATIVE (NEGATIVE); LEUKOCYTE ESTERASE, URINE AUTO 1+ (NEGATIVE); NITRITE, URINE AUTO NEGATIVE (NEGATIVE); PROTEIN, URINE AUTO NEGATIVE (NEGATIVE); RBC, URINE AUTO 0 /HPF (0-3); SPECIFIC GRAVITY URINE AUTO 1.009 (1.002-1.035); SQUAMOUS EPITHELIAL CELL UR AU 0 /HPF (0-6); UROBILINOGEN, URINE AUTO 0.2 mg/dL (0.0-2.0); WBC, URINE AUTO 1 /HPF (0-3)
[2017-06-17] MEDS: ANALGESIC BALM CRM 120 GM TOP (20:34)
[2017-06-17] MEDS: risperiDONE 2 MG TAB PO (20:35)
[2017-06-17] MEDS: RAMELTEON 8 MG TAB (ROZEREM) PO (20:37)
[2017-06-18] MEDS: LEVOTHYROXINE 50MCG TABLET (0.05MG) PO (05:51)
[2017-06-18] MEDS: LISINOPRIL 20 MG TAB PO (08:15)
[2017-06-18] MEDS: clonazePAM 1 MG TAB PO ×2 (08:25→21:03)
[2017-06-18] MEDS: VITAMIN D 1,000 INTERNATIONAL UNITS TABLET PO (08:25)
[2017-06-18] MEDS: BENZTROPINE 0.5 MG TAB PO ×2 (08:25→21:03)
[2017-06-18] MEDS: VENLAFAXINE **XR** 75MG CAPSULE PO (08:25)
[2017-06-18] MEDS: MULTIVITAMINS/MINERALS THERAP 1 TAB PO (08:25)
[2017-06-18] MEDS: RAMELTEON 8 MG TAB (ROZEREM) PO (21:03)
[2017-06-18] MEDS: risperiDONE 1 MG TAB PO (21:04)
[2017-06-18] MEDS: IBUPROFEN 600 MG TAB PO (21:06)
[2017-06-19] MEDS: LEVOTHYROXINE 50MCG TABLET (0.05MG) PO (06:04)
[2017-06-19] MEDS: VITAMIN D 1,000 INTERNATIONAL UNITS TABLET PO (08:26)
[2017-06-19] MEDS: VENLAFAXINE **XR** 75MG CAPSULE PO (08:26)
[2017-06-19] MEDS: BENZTROPINE 0.5 MG TAB PO ×2 (08:26→21:02)
[2017-06-19] MEDS: clonazePAM 1 MG TAB PO ×2 (08:26→21:02)
[2017-06-19] MEDS: MULTIVITAMINS/MINERALS THERAP 1 TAB PO (08:26)
[2017-06-19] MEDS: LISINOPRIL 20 MG TAB PO (08:26)
[2017-06-19] MEDS: ANALGESIC BALM CRM 120 GM TOP (08:26)
[2017-06-19] MEDS: risperiDONE 1 MG TAB PO (14:13)
[2017-06-19] MEDS: risperiDONE 2 MG TAB PO (21:02)
[2017-06-19] MEDS: RAMELTEON 8 MG TAB (ROZEREM) PO (21:02)
[2017-06-20] MEDS: LEVOTHYROXINE 50MCG TABLET (0.05MG) PO (06:10)
[2017-06-20] MEDS: ANALGESIC BALM CRM 120 GM TOP (08:27)
[2017-06-20] MEDS: clonazePAM 1 MG TAB PO ×2 (08:27→20:45)
[2017-06-20] MEDS: risperiDONE 1 MG TAB PO (08:27)
[2017-06-20] MEDS: VENLAFAXINE **XR** 75MG CAPSULE PO (08:27)
[2017-06-20] MEDS: MULTIVITAMINS/MINERALS THERAP 1 TAB PO (08:27)
[2017-06-20] MEDS: LISINOPRIL 20 MG TAB PO (08:27)
[2017-06-20] MEDS: BENZTROPINE 0.5 MG TAB PO ×2 (08:27→20:45)
[2017-06-20] MEDS: VITAMIN D 1,000 INTERNATIONAL UNITS TABLET PO (08:27)
[2017-06-20] MEDS: MOM 30ML SUSPENSION UDC PO (11:18)
[2017-06-20] MEDS: RAMELTEON 8 MG TAB (ROZEREM) PO (20:45)
[2017-06-20] MEDS: risperiDONE 2 MG TAB PO (20:46)
[2017-06-21] MEDS: LEVOTHYROXINE 50MCG TABLET (0.05MG) PO (06:18)
[2017-06-21] MEDS: risperiDONE 1 MG TAB PO (08:20)
[2017-06-21] MEDS: MULTIVITAMINS/MINERALS THERAP 1 TAB PO (08:20)
[2017-06-21] MEDS: VENLAFAXINE **XR** 75MG CAPSULE PO (08:20)
[2017-06-21] MEDS: clonazePAM 1 MG TAB PO (08:20)
[2017-06-21] MEDS: BENZTROPINE 0.5 MG TAB PO (08:20)
[2017-06-21] MEDS: LISINOPRIL 20 MG TAB PO (08:22)
[2017-06-21] MEDS: VITAMIN D 1,000 INTERNATIONAL UNITS TABLET PO (08:22)
[2017-06-21 13:24] LABS: APPEARANCE, URINE CLEAR (CLEAR); BACTERIA, URINE AUTO NEGATIVE (NEGATIVE); BILIRUBIN, URINE AUTO NEGATIVE (NEGATIVE); BLOOD, URINE BLOOD NEGATIVE (NEGATIVE); COLOR, URINE YELLOW (YELLOW); GLUCOSE, URINE (UA) AUTO NEGATIVE (NEGATIVE); KETONE, URINE AUTO NEGATIVE (NEGATIVE); LEUKOCYTE ESTERASE, URINE AUTO TRACE (NEGATIVE); NITRITE, URINE AUTO NEGATIVE (NEGATIVE); PROTEIN, URINE AUTO NEGATIVE (NEGATIVE); RBC, URINE AUTO 0 /HPF (0-3); SPECIFIC GRAVITY URINE AUTO 1.009 (1.002-1.035); SQUAMOUS EPITHELIAL CELL UR AU 0 /HPF (0-6); UROBILINOGEN, URINE AUTO 0.2 mg/dL (0.0-2.0); WBC, URINE AUTO 1 /HPF (0-3)
== END 2017-06-21 16:15 | disposition home or self-care (01) | DRG 885 ==
LOC: M ED 10:12 → M ED INP 13:18 → M PSY 14:26
DX: F25.9 Schizoaffective disorder, unspecified (principal); G31.84 Mild cognitive impairment of uncertain or unknown etiology; E03.9 Hypothyroidism, unspecified; M51.36 Other intervertebral disc degeneration, lumbar region; G47.00 Insomnia, unspecified; J45.20 Mild intermittent asthma, uncomplicated; M85.80 Other specified disorders of bone density and structure, unspecified site; R73.01 Impaired fasting glucose; E55.9 Vitamin D deficiency, unspecified; E66.9 Obesity, unspecified; Z68.37 Body mass index [BMI] 37.0-37.9, adult; R30.0 Dysuria; I10 Essential (primary) hypertension; Z79.899 Other long term (current) drug therapy

== ENCOUNTER → 2017-07-08 | Outpatient (REF) | payer MEDICARE, MEDICAID ==
[2017-07-08 16:23] LABS: TOTAL 25(OH) VITAMIN D 27.8 NG/ML (30.0-100.0)
[2017-07-08 16:25] LABS: ALBUMIN 3.6 GM/DL (3.2-5.2); ALBUMIN/GLOBULIN RATIO 1.44 (1.00-1.93); ALKALINE PHOSPHATASE 55 U/L (45-117); ALT/SGPT 23 U/L (12-78); ANION GAP 7 MEQ/L (8-16); AST/SGOT 18 U/L (7-37); BILIRUBIN,TOTAL 0.4 MG/DL (0.2-1.0); BLOOD UREA NITROGEN 11 MG/DL (7-18); CALCIUM LEVEL 8.6 MG/DL (8.8-10.2); CARBON DIOXIDE LEVEL 29 MEQ/L (21-32); CHLORIDE LEVEL 99 MEQ/L (98-107); CHOLESTEROL LEVEL 147 MG/DL (<200); CHOLESTEROL RISK RATIO 1.615 (<5); CREATININE FOR GFR 0.68 MG/DL (0.55-1.30); FREE T4 1.03 NG/DL (0.76-1.46); GLOMERULAR FILTRATION RATE > 60.0 (>45); GLUCOSE, FASTING 72 MG/DL (70-100); HDL CHOLESTEROL 91 MG/DL (>40); LDL CHOLESTEROL 47.8 MG/DL (<100); NON-HDL-C 56 MG/DL; POTASSIUM SERUM 4.7 MEQ/L (3.5-5.1); SODIUM LEVEL 135 MEQ/L (136-145); TOTAL PROTEIN 6.1 GM/DL (6.4-8.2); TRIGLYCERIDES LEVEL 41 MG/DL (<150)
== END ==
LOC: M SFHCPLAZ 12:07
DX: E03.9 Hypothyroidism, unspecified (principal); I10 Essential (primary) hypertension; F25.0 Schizoaffective disorder, bipolar type; E55.9 Vitamin D deficiency, unspecified; Z79.899 Other long term (current) drug therapy
CPT/HCPCS: 84443

== ENCOUNTER → 2017-08-11 | Outpatient (CLI) | payer MEDICARE, MEDICAID | LOC: M PAIN 11:00 | DX: M79.1 Myalgia (principal); M48.07 Spinal stenosis, lumbosacral region; E03.9 Hypothyroidism, unspecified; J45.909 Unspecified asthma, uncomplicated; M85.88 Other specified disorders of bone density and structure, other site; E55.9 Vitamin D deficiency, unspecified; F25.9 Schizoaffective disorder, unspecified; E66.01 Morbid (severe) obesity due to excess calories; Z68.39 Body mass index [BMI] 39.0-39.9, adult; Z79.899 Other long term (current) drug therapy | CPT/HCPCS: G0463 ==

== ENCOUNTER → 2017-08-17 | Outpatient (CLI) | payer MEDICARE, MEDICAID | LOC: M WHC 10:41 | DX: Z12.31 Encounter for screening mammogram for malignant neoplasm of breast (principal) | CPT/HCPCS: 77067 ==

== ENCOUNTER 2017-09-14 10:12 | Outpatient (RCR) | payer MEDICARE, MEDICAID | END 2017-10-05 | LOC: M PT 10:12 | DX: M25.511 Pain in right shoulder (principal); Z51.89 Encounter for other specified aftercare | CPT/HCPCS: 97110 ==

== ENCOUNTER 2017-10-07 12:03 | Outpatient (RCR) | payer MEDICARE, MEDICAID | END 2017-11-05 | LOC: M PT 12:03 | DX: M25.511 Pain in right shoulder (principal); Z51.89 Encounter for other specified aftercare | CPT/HCPCS: 97110 ==

== ENCOUNTER 2017-11-09 10:43 | Outpatient (RCR) | payer MEDICARE, MEDICAID | END 2017-12-05 | LOC: M PT 10:43 | DX: M25.511 Pain in right shoulder (principal); M54.5 Low back pain | CPT/HCPCS: 97110 ==

== ENCOUNTER → 2017-11-11 | Outpatient (CLI) | payer MEDICARE, MEDICAID | LOC: M PAIN 11:00 | DX: M79.1 Myalgia (principal); M48.07 Spinal stenosis, lumbosacral region; E03.9 Hypothyroidism, unspecified; J45.909 Unspecified asthma, uncomplicated; M85.80 Other specified disorders of bone density and structure, unspecified site; E55.9 Vitamin D deficiency, unspecified; F25.0 Schizoaffective disorder, bipolar type; E66.01 Morbid (severe) obesity due to excess calories; Z68.41 Body mass index [BMI] 40.0-44.9, adult; Z79.899 Other long term (current) drug therapy | CPT/HCPCS: G0463 ==

== ENCOUNTER → 2018-01-21 | Outpatient (REF) | payer MEDICARE, MEDICAID | LOC: M SFHCWAGY 11:00 | DX: Z12.4 Encounter for screening for malignant neoplasm of cervix (principal) | CPT/HCPCS: G0123 ==

== ENCOUNTER → 2018-01-21 | Outpatient (CLI) | payer MEDICARE, MEDICAID ==
[2018-01-21 13:39] LABS: ALBUMIN/GLOBULIN RATIO 1.54 (1.00-1.93); ALKALINE PHOSPHATASE 59 U/L (45-117); ALT/SGPT 30 U/L (12-78); ANION GAP 8 MEQ/L (8-16); AST/SGOT 19 U/L (7-37); BILIRUBIN,TOTAL 0.3 MG/DL (0.2-1.0); BLOOD UREA NITROGEN 9 MG/DL (7-18); CALCIUM LEVEL 9.1 MG/DL (8.8-10.2); CARBON DIOXIDE LEVEL 29 MEQ/L (21-32); CHLORIDE LEVEL 93 MEQ/L (98-107); CHOLESTEROL LEVEL 199 MG/DL (<200); CREATININE FOR GFR 0.71 MG/DL (0.55-1.30); FREE T4 1.02 NG/DL (0.76-1.46); GLOMERULAR FILTRATION RATE > 60.0 (>45); GLUCOSE, FASTING 83 MG/DL (70-100); HDL CHOLESTEROL 100 MG/DL (>40); LDL CHOLESTEROL 90 MG/DL (<100); NON-HDL-C 99 MG/DL; POTASSIUM SERUM 4.6 MEQ/L (3.5-5.1); SODIUM LEVEL 130 MEQ/L (136-145); TOTAL PROTEIN 6.6 GM/DL (6.4-8.2); TRIGLYCERIDES LEVEL 43 MG/DL (<150)
== END ==
LOC: M LAB 11:52
DX: R73.01 Impaired fasting glucose (principal); E03.9 Hypothyroidism, unspecified; I10 Essential (primary) hypertension; Z12.4 Encounter for screening for malignant neoplasm of cervix
CPT/HCPCS: 84443

== ENCOUNTER 2018-02-08 08:31 | Day surgery (SDC) | payer MEDICARE, MEDICAID ==
[~2018-02-08 08:31] MED LIST changes: -BENZ0.5T PO; -CLON0.5T PO; -CLON1TAB PO; -IBUP1TAB6 PO; -LATU120T PO; -LATU1TAB PO; -LATU40TA PO; -LEVO25TA5 PO; -LEVO88TA3 PO; -LIDO1OIN2 TOP; +LIDOCAINE 2% INJ 100 MG/5 ML SDV (FOR ANES.) As Ordered; -LISI-538 PO; -MAPA500L PO; -MOBI15TA PO; -MUSC1CRE EX; -NAPR500T3 PO; -NORCOTAB PO; -PREG100CA PO; +PROPOFOL 200 MG/20 ML VIAL As Ordered; -RALO1TAB PO; -ROZE8TAB16 PO; -SYNT50TA PO; -TIZA2TA PO; -TRAM50TA2 PO; -VENL150C43 PO; -VENL75CA2 PO; -VITA100066 PO; -VITA200025 PO; -VITA500T88 PO; -VITMTA PO; -VOLT1GEL15 TD; -tylenol PO
[2018-02-08] MEDS: NS 1,000 ML IV (09:11)
== END 2018-02-08 10:59 | disposition home or self-care (01) ==
LOC: M OPP 08:31
DX: K59.00 Constipation, unspecified (principal); F31.9 Bipolar disorder, unspecified; J45.909 Unspecified asthma, uncomplicated; E11.9 Type 2 diabetes mellitus without complications; Z85.3 Personal history of malignant neoplasm of breast; E07.9 Disorder of thyroid, unspecified; Z79.899 Other long term (current) drug therapy
CPT/HCPCS: 45378

== ENCOUNTER → 2018-02-24 | Outpatient (CLI) | payer MEDICARE, MEDICAID ==
[~2018-02-24] MED LIST changes: +BENZ0.5T PO; +CALC500T36 PO; +CLON0.5T8 PO; +CLON1TAB8 PO; +DONETAB6 PO; +HALO0.5H PO; +IBUP-1022; +IBUP-1022 PO; +IBUP1TAB6 PO; +INVE234I IM; +LATU120T PO; +LATU1TAB PO; +LATU40TA PO; +LEVO25TA5 PO; +LEVO88TA3 PO; +LIDO1OIN2 TOP; -LIDOCAINE 2% INJ 100 MG/5 ML SDV (FOR ANES.) As Ordered; +LISI-538 PO; +MAPA500L PO; +MOBI15TA PO; +MUSC1CRE EX; +NAPR-885 PO; +NORCOTAB PO; +PATIENT COMMENT; +PREG100CA PO; -PROPOFOL 200 MG/20 ML VIAL As Ordered; +RALO1TAB PO; +RISP1TAB42 PO; +RISP2TAB32 PO; +ROZE8TAB16 PO; +SYNT50TA PO; +TIZA2TA PO; +TRAM50TA2 PO; +TRAZ-160 PO; +TRAZ25TA PO; +VENL150C43 PO; +VENL75CA2 PO; +VENL75CA47; +VENL75CA47 PO; +VITA100066 PO; +VITA2000; +VITA200025 PO; +VITA500T88 PO; +VITMTA PO; +VOLT1GEL15 TD; +benzotropine PO; +tylenol PO
--- NOTE | 2018-03-03 13:34 | DEXA ---
AP SPINE L1 - L4 0.818 -3.0 -1.8 LT FEMUR TOTAL 0.861 -1.2 -0.2 LT NECK 0.782 -1.8 0.6 RT FEMUR TOTAL 0.831 -1.4 -0.5 RT NECK 0.824 -1.5 -0.3 TOTAL BODY TOTAL OTHER COMMENTS: There is low bone density of the hips. There is osteoporosis of the spine. The density of the spine has decreased 12.5% since the initial exam on 07/03/2008. The spine density has decreased 3.8% since the most recent exam on 01/21/2015. The density of the left hip has decreased 8.5% since the initial exam on 07/03/2008. The density of the left hip has decreased 4.0% since the most recent exam on 01/21/2015. The density of the right hip has decreased 9.0% since the initial exam on 07/03/2008. The density of the right hip has decreased 6.1% since the most recent exam on 01/21/2015. FOLLOW-UP: Recommendation for the next bone density exam: 2 years. RONNIED
== END ==
LOC: M WHC 10:47
PROVIDERS: ATTEND Nurse Practitioner Family
DX: M81.0 Age-related osteoporosis without current pathological fracture (principal)

== ENCOUNTER → 2018-03-14 | Outpatient (CLI) | payer MEDICARE, MEDICAID ==
--- NOTE | 2018-04-04 02:02 | ECWPNPC ---
PATIENT NAME: LUZMARIA FUNES : 1955 GENDER: FEMALE VISIT DATE: 03/14/2018 DISCHARGE DATE: 03/14/18 1146 VISIT LOCKED DATE TIME: PHYSICIAN: GABRIELLA YUAN RESOURCE: GABRIELLA YUAN REASON FOR APPOINTMENT 1. BACK PAIN HISTORY OF PRESENT ILLNESS HISTORY OF PRESENT ILLNESS: HERE FOR F/U OF CHRONIC LOW BACK PAIN.RATING PAIN VAS 4/10.CHIEF AREA OF PAIN IS LEFT LOW BACK WITH INTRMITTENT RIGHT POSTERIOR THIGH PAIN.PAIN IS MAINLY DURING DAYTIME AND DESCRIBED ACHING. PAIN THE PATIENT DESCRIBES THE PAIN... FALL RISK SCREENING: SCREENING :NO FALLS IN THE PAST YEAR CURRENT MEDICATIONS TAKING LISINOPRIL 20 MG TABLET 1 TABLET ORALLY ONCE A DAY TAKING VITAMIN D 2000 UNIT CAPSULE 1 CAPSULE ORALLY ONCE A DAY TAKING LEVOTHYROXINE SODIUM 50 MCG TABLET 1 TABLET ON AN EMPTY STOMACH IN THE MORNING ORALLY ONCE A DAY TAKING KLONOPIN 1 MG TABLET 1 TABLET ORALLY BID TAKING COGENTIN 0.5 MG 1 TAB(S) 2 TIMES A DAY TAKING EFFEXOR XR 150 MG CAPSULE EXTENDED RELEASE 24 HOUR 225MG-1 CAPSULE WITH FOOD ORALLY ONCE A DAY, NOTES: PT REPORTS TOTAL 300MG TAKING BIOFREEZE ROLL-ON 4 % GEL 1 APPLICATION TO AFFECTED AREA NEEDED EXTERNALLY ONCE A DAY TAKING MULTIVITAMIN ADULTS - TABLET ORALLY DAILY TAKING PALIPERIDONE PALMITATE 234 MG/1.5ML SUSPENSION 1.5 ML INTRAMUSCULAR TAKING RISPERIDONE 1 MG TABLET 1 TABLET ORALLY 1MG AM 2MG HS TAKING TRAZODONE HCL 50 MG TABLET 1/2 (25MG) TABLET AT BEDTIME NEEDED ORALLY ONCE A DAY HS, NOTES: TAKES HALF AT BEDTIME TAKING DONEPEZIL HCL 10 MG TABLET 1 TABLET AT BEDTIME ORALLY ONCE A DAY TAKING ROZEREM 8 MG 1 TABLET AT BEDTIME NEEDED TAKING BENEFIBER - POWDER ORALLY TAKING IBUPROFEN 600 MG TABLET 1 TABLET WITH FOOD OR MILK NEEDED ORALLY EVERY 8 HOURS PRN PAIN TAKE WITH FOOD TAKING RALOXIFENE HCL 60 MG TABLET TAKE ONE TABLET BY MOUTH ONCE DAILY ORALLY ONCE A DAY TAKING TIZANIDINE HCL 2 MG TABLET 1 TABLET ORALLY TAKE 1 AT MIDDAY AND 1 TAB AT BEDTIME TAKING CALCIUM 500 MG TABLET 1 TABLET WITH MEALS ORALLY DAILY DISCONTINUED EFFEXOR XR 75 MG CAPSULE EXTENDED RELEASE 24 HOUR 1 CAPSULE ORALLY ONCE A DAY DISCONTINUED LEVOTHYROXINE SODIUM 50 MCG TABLET 1 TABLET ON AN EMPTY STOMACH IN THE MORNING ORALLY ONCE A DAY DISCONTINUED VITAMIN D 2000 UNIT CAPSULE 1 CAPSULE ORALLY ONCE A DAY MEDICATION LIST REVIEWED AND RECONCILED WITH THE PATIENT PAST MEDICAL HISTORY HYPOTHYROIDISM MYOPIC ASTIGMATISM CALCANEAL SPURS ASTHMA, MILD INTERMITTENT IFG OSTEOPENIA, DEXA 01/18, T SCORE -2, AT SPINE, OSTEOPOROSIS ON DEXA 2014 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 RALOXIFENE STOPPED SCHIZOAFFECTIVE D/O WITH BIPOLAR FEATURES 11/15 EKG NEG PN 11/18 MORBID OBESITY MEMORY IMPAIRMENT, NEG WORK UP 06/18. XR LS SPINE 04/21 MILD SCOLIOSISCONVEX L/ BILATERAL L5 SPONDYLOLYSIS WITH GRADE 2 SPODYLOLITHESIS/ADV L5-S1 DDD/MOD T12-L1 DDD JOSEPH 09/18 FEV1 2.19 MRI LSPINE 12/19 - DIFFUSE DISC BULGE AT L4-5, L5-S1 WITH MIN THECAL SAC COMPRESSION, GRADE 2 SPONDYLOLITHESIS OF L5 ON S1 WITH ASSOC L5 PARS DEFECT, THERE IS COMPRESSION OF THE L5 NERVES IN THE NEURAL FORAMINA. SIADH: SECONDARY TO MEDICATIONS AND EXCESSIVE WATER INTAKE COLONOSCOPY 26/06/2017: NORMAL, NO SPECIMENS COLLECTED ALLERGIES N.K.D.A. SURGICAL HISTORY L BREAST BX 11/04/09 L BREAST LUMPECTOMY--DCIS 11/27/09 COLONOSCOPY: POLYPS WITHOUT ADENOMATOUS OR HYPERPLASTIC FEATURES; REPEAT 10 YEARS 2012 FAMILY HISTORY FATHER: ALIVE, DEMENTIA MOTHER: ALIVE SIBLINGS: ALIVE, SISTER FEMALE CANCER UNKNOWN PATERNAL GRAND FATHER: PATERNAL GRAND MOTHER: MATERNAL GRAND FATHER: MATERNAL GRAND MOTHER: 1 BROTHER(S) , 3 SISTER(S) - HEALTHY. SOCIAL HISTORY GENERAL: TOBACCO USE ARE YOU A:NONSMOKER NEVER SMOKER BMI CARE GOAL FOLLOW-UP ABOVE NORMAL BMI FOLLOW-UPDIETARY MANAGEMENT EDUCATION, GUIDANCE, AND COUNSELING ALCOHOL SCREENING DID YOU HAVE A DRINK CONTAINING ALCOHOL IN THE PAST YEAR?NO POINTS0 INTERPRETATIONNEGATIVE RECREATIONAL DRUG USE DRUG USE?NO CAFFEINE CAFFEINE USE?YES DIET PEPSI- 1/DAY SEXUAL HX HAD SEX IN THE LAST 12 MONTHS (VAGINAL, ORAL, OR ANAL)?NO HAVE YOU EVER HAD AN STD?NO HIV / HEP-C SCREENING HIV TEST OFFERED TO PATIENT:YES DATE OFFERED:05/27/2016 TEST ACCEPTED:NO HEP-C TEST OFFERED TO PATIENT:YES DATE OFFERED:05/27/2016 REASON:PATIENT DECLINED TEST ACCEPTED:NO REASON:PATIENT DECLINED YARSANI CHRISTIAN. LANGUAGE HAITIAN. EDUCATION 12 TH GRADE GRADUATE. LEARNING BARRIERS / SPECIAL NEEDS CHANGE FROM LAST VISIT?NO BARRIERS TO LEARNING?NO HEARING IMPAIRED?NO VISION IMPAIRED?YES COGNITIVELY IMPAIRED?NO :CORRECTIVE LENSES READINESS TO LEARN?YES LEARNING PREFERENCES?NO LEARNING CAPABILITIES PRESENT?YES EMOTIONAL BARRIERS?NO SPECIAL DEVICES?NO HEALTH OUTREACH WORKER NEEDED?NO DOMESTIC VIOLENCE DO YOU FEEL SAFE IN YOUR ENVIRONMENT?YES OCCUPATION: DISABLED. DIET: REGULAR. EXERCISE: WALKS. MARITAL STATUS: SINGLE. OTHERS AT HOME: NONE. NEW PATIENT PAIN DIARY FROM 0-10, WHAT LEVEL IS YOUR PAIN TODAY?3 PAIN CLINIC PFS, CLERGY, PUBLIC HEALTH REFERRALS PFS REFERRAL NEEDED?NO CLERGY REFERRAL NEEDED?NO PUBLIC HEALTH REFERRAL NEEDED?NO WAS THE PROVIDER NOTIFIED OF ANY PERTINENT INFO?YES HAS THE PATIENT BEEN EDUCATED REGARDING HIS/HER PLAN OF CARE?YES HAS THE PATIENT BEEN EDUCATED REGARDING PAIN, THE RISK FOR PAIN, THE IMPORTANCE OF EFFECTIVE PAIN MANAGEMENT, AND THE PAIN ASSESSMENT PROCESS?YES ADVANCE DIRECTIVE ADVANCE DIRECTIVE DISCUSSED WITH PATIENT:YES DECLINED REVEIWED WITH PATIENT 11-11-17 BV. HOSPITALIZATION/MAJOR DIAGNOSTIC PROCEDURE [facility] [facility] [place] REVIEW OF SYSTEMS REVIEWED BY: PROVIDER: GABRIELLA ARGUETA . CONSTITUTIONAL: ANY CHANGE IN YOUR MEDICAL CONDITION? NO . CHILLS NO . FEVER NO . INFECTION: DO YOU HAVE NEW INFECTIONS? NO . DO YOU HAVE HISTORY OF MRSA? NO . MUSCULOSKELETAL: ANY NEW PATTERNS OF PAIN OR NUMBNESS? YES, PAIN LEVEL HAS INCREASED . GASTROENTEROLOGY: ANY NEW CHANGE IN BOWEL CONTROL? YES, CONSTIPATION . GENITOURINARY: ANY NEW CHANGE IN BLADDER CONTROL? NO . IS THERE A CHANCE YOU COULD BE ? NO . HEMATOLOGY/LYMPH: DO YOU TAKE ANY BLOOD THINNERS? (FOR EXAMPLE- COUMADIN, PLAVIX, AGGRENOX, PLATEL, PRADAXA, OR XARELTO) NO . WHEN WAS YOUR LAST DOSE? DATE: TIME: . NEUROLOGY: HAVE YOU FALLEN IN THE PAST 6 MONTHS? NO . ANY NEW EXTREMITY NUMBNESS OR WEAKNESS? NO . CARDIOLOGY: DO YOU HAVE A PACEMAKER OR DEFIBRILLATOR? NO . RESPIRATORY: HAVE YOU BEEN SICK IN THE PAST WEEK? NO . FEVER NO . FLU LIKE SYMPTOMS? NO . COUGH NO . INTEGUMENTARY: DO YOU HAVE ANY RASHES OR OPEN SORES? NO . ALLERGIC/IMMUNO: ARE YOU ALLERGIC TO SHELLFISH OR IV DYE? NO . ANY NEW ALLERGIES? NO . PSYCHIATRIC: DO YOU HAVE THOUGHTS OF HURTING YOURSELF OR SOMEONE ELSE? NO . ARE YOU ABUSED, NEGLECTED, OR IN AN UNSAFE ENVIRONMENT? NO . ENDOCRINOLOGY: ARE YOU DIABETIC? NO . OTHER: DO YOU NEED ANY PRESCRIPTIONS? YES, TO DISCUSS REFILLS . IF YES, PLEASE LIST: ____ . ANY NEW PROBLEMS WITH YOUR MEDICATIONS? NO . WHEN DID YOU LAST EAT? ____ . WHEN DID YOU LAST DRINK? ____ . WHAT DID YOU LAST DRINK? ____ . NAME OF PERSON DRIVING YOU HOME? ____ . DO YOU HAVE ANY OTHER QUESTIONS OR CONCERNS NO . VITAL SIGNS WT 183.6 LBS, HT 56.25 IN, BMI 40.79 INDEX, BP 116/61 MM HG, HR 88 /MIN, RR 18 /MIN, TEMP 98.2 F, OXYGEN SAT % 100%, NA INITIALS AW 1117, REVIEWED BY: EM. EXAMINATION GENERAL EXAMINATION: GENERAL APPEARANCE:COLOR PINK, SKIN WARM AND DRY. PSYCHALERT , ORIENTED X 3 , VERY CALM TODAY. LUNGS:CLEAR TO AUSCULTATION BILATERALLY. HEART:REGULAR RATE AND RHYTHM. MUSCULOSKELETAL:MILD TENDERNESS WITH PALPATION OVER LUMBOSACRAL AXIS L>R. ABLE TO FLEX/EXTEND AND ROTATE LOW BACK WITH ONLY MILD DISCOMFORT. . ASSESSMENTS SPINAL STENOSIS OF LUMBOSACRAL REGION - M48.07 (PRIMARY) TREATMENT SPINAL STENOSIS OF LUMBOSACRAL REGION STOP IBUPROFEN TABLET, 600 MG, 1 TABLET WITH FOOD OR MILK NEEDED, ORALLY, EVERY 8 HOURS PRN PAIN TAKE WITH FOOD START MELOXICAM TABLET, 7.5 MG, 1 TABLET, ORALLY, BID, 30 DAY(S), 60 TABLET, REFILLS 2 [facility] MRI SPINE, L.S. WITHOUT [id number] PREVENTIVE MEDICINE PAIN CLINIC TEACHING: MEDICATIONS MELOXICAM HANDOUT PRINTED REVIEWED AN D GIVEN TO PTShaina CHAWLA. PROCEDURE CODES FA211 ESTABILISHED PATIENT [facility] CHARGE DISPOSITION & COMMUNICATION FOLLOW UP 6-8WKS (REASON: MRI L/S SPINE) ELECTRONICALLY SIGNED BY KENDALL ROY ON 04/03/2018 AT 09:52 AM EST DISCLAIMER : THIS IS A VISIT SUMMARY EXTRACTED FROM THE [employer] CHART. IT IS NOT A COPY OF THE [employer] PROGRESS NOTE. RONNIED
== END ==
LOC: M PAIN 11:15
PROVIDERS: ATTEND Nurse Practitioner Family
DX: M48.07 Spinal stenosis, lumbosacral region (principal); G89.29 Other chronic pain; E03.9 Hypothyroidism, unspecified; J45.909 Unspecified asthma, uncomplicated; F25.9 Schizoaffective disorder, unspecified; E55.9 Vitamin D deficiency, unspecified; M85.88 Other specified disorders of bone density and structure, other site; Z79.899 Other long term (current) drug therapy

== ENCOUNTER → 2018-04-28 | Outpatient (CLI) | payer MEDICARE, MEDICAID ==
--- NOTE | 2018-04-28 12:12 | REP ---
MRI LUMBAR SPINE WITHOUT CONTRAST: HISTORY: Spinal stenosis. COMPARISON: 12/14/2013. Decreased signal intensity on T2-weighted images is present in the L3-4 through L5-S1 intervertebral discs. The discs are decreased in height. These findings are consistent with disc degeneration. There is no disc bulge or herniation at the L1-2 through L3-4 levels. The nerves exit the neural foramina without compression. A diffuse disc bulge is present at the L4-5 level. There is minimal compression of the thecal sac. There is hypertrophy of the ligamenta flava and posterior articulating facets. The L4 nerves exit the neural foramina without compression. A diffuse disc bulge is present at the L5-S1 level. This abuts the thecal sac. There is hypertrophy of the posterior articulating facets. There are 12 mm of grade 2 spondylolisthesis of L5 on S1. This is associated with L5 pars defects. There is compression of the L5 nerves in the neural foramina. The conus medullaris is normal in appearance terminating at the level of the L1-2 intervertebral disc. Increased signal intensity on T2-weighted images is present in the endplates of the L5 and S1 vertebral bodies. This represents degenerative change. There is mild loss of height of the L5 vertebral body. IMPRESSION: 1. Diffuse disc bulge at the L4-5 level with minimal thecal sac compression. 2. Diffuse disc bulge at the L5-S1 level. This abuts the thecal sac. There is grade 2 spondylolisthesis of L5 on S1 with associated L5 pars defects. There is compression of the L5 nerves in the neural foramina. There is no significant change compared to the previous study. Electronically Signed by Arash Fox MD 04/28/2018 12:16 P
== END ==
LOC: M RAD 11:00
PROVIDERS: ATTEND Nurse Practitioner Family
DX: M48.07 Spinal stenosis, lumbosacral region (principal)

== ENCOUNTER → 2018-05-13 | Outpatient (CLI) | payer MEDICARE, MEDICAID ==
--- NOTE | 2018-05-14 02:37 | ECWPNPC ---
PATIENT NAME: LUZMARIA FUNES : 1955 GENDER: FEMALE VISIT DATE: 05/13/2018 DISCHARGE DATE: 05/13/18 1202 VISIT LOCKED DATE TIME: PHYSICIAN: GABRIELLA YUAN RESOURCE: GABRIELLA YUAN REASON FOR APPOINTMENT 1. BACK PAIN HISTORY OF PRESENT ILLNESS HISTORY OF PRESENT ILLNESS: HERE FOR F/U OF CHRONIC LOW BACK .REVIEWED MRI L/S 04/28/18.THIS IS SHOWING SIGNIFICANT SPONDYLOLYSTHESIS AT L4/5-L5/S1.RATING LOW BACK PAIN 4/10.IS DOING HOME EXCERSISE. PAIN THE PATIENT DESCRIBES THE PAIN... FALL RISK SCREENING: SCREENING : NO FALLS IN THE PAST YEAR. CURRENT MEDICATIONS TAKING VITAMIN D 2000 UNIT CAPSULE 1 CAPSULE ORALLY ONCE A DAY TAKING KLONOPIN 1 MG TABLET 1 TABLET ORALLY BID TAKING COGENTIN 0.5 MG 1 TAB(S) 2 TIMES A DAY TAKING EFFEXOR XR 150 MG CAPSULE EXTENDED RELEASE 24 HOUR 225MG-1 CAPSULE WITH FOOD ORALLY ONCE A DAY, NOTES: PT REPORTS TOTAL 300MG TAKING BIOFREEZE ROLL-ON 4 % GEL 1 APPLICATION TO AFFECTED AREA NEEDED EXTERNALLY ONCE A DAY TAKING MULTIVITAMIN ADULTS - TABLET ORALLY DAILY TAKING PALIPERIDONE PALMITATE 234 MG/1.5ML SUSPENSION 1.5 ML INTRAMUSCULAR TAKING RISPERIDONE 1 MG TABLET 1 TABLET ORALLY 1MG AM 2MG HS TAKING DONEPEZIL HCL 10 MG TABLET 1 TABLET AT BEDTIME ORALLY ONCE A DAY TAKING ROZEREM 8 MG 1 TABLET AT BEDTIME NEEDED TAKING BENEFIBER - POWDER ORALLY TAKING RALOXIFENE HCL 60 MG TABLET TAKE ONE TABLET BY MOUTH ONCE DAILY ORALLY ONCE A DAY TAKING TIZANIDINE HCL 2 MG TABLET 1 TABLET ORALLY TAKE 1 AT MIDDAY AND 1 TAB AT BEDTIME TAKING CALCIUM 500 MG TABLET 1 TABLET WITH MEALS ORALLY DAILY TAKING MELOXICAM 7.5 MG TABLET 1 TABLET ORALLY BID TAKING LISINOPRIL 20 MG TABLET 1 TABLET ORALLY ONCE A DAY TAKING LEVOTHYROXINE SODIUM 50 MCG TABLET 1 TABLET ON AN EMPTY STOMACH IN THE MORNING ORALLY ONCE A DAY TAKING STOOL SOFTENER 100 MG CAPSULE 1 CAPSULE NEEDED ORALLY ONCE A DAY NOT-TAKING TRAZODONE HCL 50 MG TABLET 1/2 (25MG) TABLET AT BEDTIME NEEDED ORALLY ONCE A DAY HS, NOTES: TAKES HALF AT BEDTIME MEDICATION LIST REVIEWED AND RECONCILED WITH THE PATIENT PAST MEDICAL HISTORY HYPOTHYROIDISM MYOPIC ASTIGMATISM CALCANEAL SPURS ASTHMA, MILD INTERMITTENT IFG OSTEOPENIA, DEXA 01/18, T SCORE -2, AT SPINE, OSTEOPOROSIS ON DEXA 2014 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 RALOXIFENE STOPPED SCHIZOAFFECTIVE D/O WITH BIPOLAR FEATURES 11/15 EKG NEG PN 11/18 MORBID OBESITY MEMORY IMPAIRMENT, NEG WORK UP 06/18. XR LS SPINE 04/21 MILD SCOLIOSISCONVEX L/ BILATERAL L5 SPONDYLOLYSIS WITH GRADE 2 SPODYLOLITHESIS/ADV L5-S1 DDD/MOD T12-L1 DDD JOSEPH 09/18 FEV1 2.19 MRI LSPINE 12/19 - DIFFUSE DISC BULGE AT L4-5, L5-S1 WITH MIN THECAL SAC COMPRESSION, GRADE 2 SPONDYLOLITHESIS OF L5 ON S1 WITH ASSOC L5 PARS DEFECT, THERE IS COMPRESSION OF THE L5 NERVES IN THE NEURAL FORAMINA. SIADH: SECONDARY TO MEDICATIONS AND EXCESSIVE WATER INTAKE COLONOSCOPY 26/06/2017: NORMAL, NO SPECIMENS COLLECTED ALLERGIES N.K.D.A. SURGICAL HISTORY L BREAST BX 11/04/09 L BREAST LUMPECTOMY--DCIS 11/27/09 COLONOSCOPY: POLYPS WITHOUT ADENOMATOUS OR HYPERPLASTIC FEATURES; REPEAT 10 YEARS 2012 FAMILY HISTORY FATHER: ALIVE, DEMENTIA, DIAGNOSED WITH HYPERTENSION MOTHER: ALIVE SIBLINGS: ALIVE, SISTER FEMALE CANCER UNKNOWN PATERNAL GRAND FATHER: PATERNAL GRAND MOTHER: MATERNAL GRAND FATHER: MATERNAL GRAND MOTHER: 1 BROTHER(S) , 3 SISTER(S) - HEALTHY. SOCIAL HISTORY GENERAL: TOBACCO USE ARE YOU A:NONSMOKER NEVER SMOKER LATEX QUESTIONNAIRE LATEX ALLERGY : HAVE YOU EVER DEVELOPED ANY TYPE OF REACTION AFTER HANDLING LATEX PRODUCTS SUCH RUBBER GLOVES, CONDOMS, DIAPHRAGMS, BALLOONS, SOCKS, OR UNDERWEAR?NO LATEX ALLERGY : HAVE YOU EVER DEVELOPED ANY TYPE OF REACTION DURING OR AFTER DENTAL APPOINTMENT, VAGINAL/RECTAL EXAMINATION, SURGICAL PROCEDURE, OR ANY OTHER EXPOSURE?NO LATEX RISK : HAVE YOU EVER HAD ANY DIFFICULTY BREATHING OR HIVES AFTER EATING OR HANDLING ANY FRUITS, OR VEGETABLES; SUCH KIWI, BANANAS, STONE FRUITS, OR CHESTNUTSNO LATEX RISK : DO YOU HAVE A PREVIOUS PERSONAL HISTORY OF MORE THAN NINE SURGERIES, SPINA BIFIDA, OR REPEATED CATHERTIZATIONS? NO LATEX RISK : ARE YOU FREQUENTLY EXPOSED TO LATEX PRODUCTS IN YOUR OCCUPATION?NO DATE ASKED : 05/13/2018 BMI CARE GOAL FOLLOW-UP ABOVE NORMAL BMI FOLLOW-UPDIETARY MANAGEMENT EDUCATION, GUIDANCE, AND COUNSELING ALCOHOL SCREENING DID YOU HAVE A DRINK CONTAINING ALCOHOL IN THE PAST YEAR?NO POINTS0 INTERPRETATIONNEGATIVE RECREATIONAL DRUG USE DRUG USE?NO CAFFEINE CAFFEINE USE?YES DIET PEPSI- 1/DAY SEXUAL HX HAD SEX IN THE LAST 12 MONTHS (VAGINAL, ORAL, OR ANAL)?NO HAVE YOU EVER HAD AN STD?NO HIV / HEP-C SCREENING HIV TEST OFFERED TO PATIENT:YES DATE OFFERED:05/27/2016 TEST ACCEPTED:NO HEP-C TEST OFFERED TO PATIENT:YES DATE OFFERED:05/27/2016 REASON:PATIENT DECLINED TEST ACCEPTED:NO REASON: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 LANGUAGE DIVEHI. EDUCATION 12 TH GRADE GRADUATE. LEARNING BARRIERS / SPECIAL NEEDS CHANGE FROM LAST VISIT?NO BARRIERS TO LEARNING?NO HEARING IMPAIRED?NO VISION IMPAIRED?YES COGNITIVELY IMPAIRED?NO :CORRECTIVE LENSES READINESS TO LEARN?YES LEARNING PREFERENCES?NO LEARNING CAPABILITIES PRESENT?YES EMOTIONAL BARRIERS?NO SPECIAL DEVICES?NO PERSONAL CARE AIDE NEEDED?NO DOMESTIC VIOLENCE DO YOU FEEL SAFE IN YOUR ENVIRONMENT?YES OCCUPATION: DISABLED. DIET: REGULAR. EXERCISE: WALKS. MARITAL STATUS: SINGLE. OTHERS AT HOME: NONE. NEW PATIENT PAIN DIARY FROM 0-10, WHAT LEVEL IS YOUR PAIN TODAY?4 PAIN CLINIC PFS, CLERGY, PUBLIC HEALTH REFERRALS PFS REFERRAL NEEDED?NO CLERGY REFERRAL NEEDED?NO PUBLIC HEALTH REFERRAL NEEDED?NO WAS THE PROVIDER NOTIFIED OF ANY PERTINENT INFO?YES HAS THE PATIENT BEEN EDUCATED REGARDING HIS/HER PLAN OF CARE?YES HAS THE PATIENT BEEN EDUCATED REGARDING PAIN, THE RISK FOR PAIN, THE IMPORTANCE OF EFFECTIVE PAIN MANAGEMENT, AND THE PAIN ASSESSMENT PROCESS?YES ADVANCE DIRECTIVE ADVANCE DIRECTIVE DISCUSSED WITH PATIENT:YES PT DECLINED HCP INFO AND ASSISTANCE AT THIS TIME. 05/13/18 REVEIWED WITH PATIENT 11-11-17 BVREVIEWED WITH PT 05/13/18 1135 BV. HOSPITALIZATION/MAJOR DIAGNOSTIC PROCEDURE [facility] [place] 06/[place] REVIEW OF SYSTEMS REVIEWED BY: PROVIDER: GABRIELLA ARGUETA . CONSTITUTIONAL: ANY CHANGE IN YOUR MEDICAL CONDITION? NO . CHILLS NO . FEVER NO . INFECTION: DO YOU HAVE NEW INFECTIONS? NO . DO YOU HAVE HISTORY OF MRSA? NO . MUSCULOSKELETAL: ANY NEW PATTERNS OF PAIN OR NUMBNESS? YES, PT COMPLAINS OF PAIN IN RIGHT SHOULDER FOR THE PAST COUPLE MONTHS. STATES SHE IS CURRENTLY DOING PHYSICAL THERAPY FOR THIS. . GASTROENTEROLOGY: ANY NEW CHANGE IN BOWEL CONTROL? YES, PT COMPLAINS OF INTERMITTENT CONSTIPATION. STATES SHE HAS A STOOL SOFTENER WHEN NEEDED . GENITOURINARY: ANY NEW CHANGE IN BLADDER CONTROL? NO . IS THERE A CHANCE YOU COULD BE ? NO . HEMATOLOGY/LYMPH: DO YOU TAKE ANY BLOOD THINNERS? (FOR EXAMPLE- COUMADIN, PLAVIX, AGGRENOX, PLATEL, PRADAXA, OR XARELTO) NO . WHEN WAS YOUR LAST DOSE? DATE: TIME: . NEUROLOGY: HAVE YOU FALLEN IN THE PAST 12 MONTHS? NO . ANY NEW EXTREMITY NUMBNESS OR WEAKNESS? NO . CARDIOLOGY: DO YOU HAVE A PACEMAKER OR DEFIBRILLATOR? NO . RESPIRATORY: HAVE YOU BEEN SICK IN THE PAST WEEK? NO . FEVER NO . FLU LIKE SYMPTOMS? NO . COUGH NO . INTEGUMENTARY: DO YOU HAVE ANY RASHES OR OPEN SORES? NO . ALLERGIC/IMMUNO: ARE YOU ALLERGIC TO IV DYE? NO . ANY NEW ALLERGIES? NO . PSYCHIATRIC: DO YOU HAVE THOUGHTS OF HURTING YOURSELF OR SOMEONE ELSE? NO . ARE YOU ABUSED, NEGLECTED, OR IN AN UNSAFE ENVIRONMENT? NO . ENDOCRINOLOGY: ARE YOU DIABETIC? NO . OTHER: DO YOU NEED ANY PRESCRIPTIONS? NO . IF YES, PLEASE LIST: ____ . ANY NEW PROBLEMS WITH YOUR MEDICATIONS? NO . WHEN DID YOU LAST EAT? ____ . WHEN DID YOU LAST DRINK? ____ . WHAT DID YOU LAST DRINK? ____ . NAME OF PERSON DRIVING YOU HOME? ____ . DO YOU HAVE ANY OTHER QUESTIONS OR CONCERNS NO . VITAL SIGNS WT 188.2 LBS, HT 56.25 IN, BMI 41.81 INDEX, BP 117/72 MM HG, HR 93 /MIN, RR 18 /MIN, TEMP 99.4 F, OXYGEN SAT % 98%, NA INITIALS AW 1118, REVIEWED BY: BV. EXAMINATION GENERAL EXAMINATION: GENERAL APPEARANCE:COLOR PINK, SKIN WARM AND DRY . PSYCHALERT , ORIENTED X 3 , VERY CALM TODAY . LUNGS:CLEAR TO AUSCULTATION BILATERALLY . HEART:REGULAR RATE AND RHYTHM . MUSCULOSKELETAL:MILD TENDERNESS WITH PALPATION OVER LUMBOSACRAL AXIS L>R. ABLE TO FLEX/EXTEND AND ROTATE LOW BACK WITH ONLY MILD DISCOMFORT. . LUMBAR SACRAL SPINETENDER OVER BILAT. L4/5-L5/S1 FACETS W FACET LOADING. 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 PREVENTIVE MEDICINE PAIN CLINIC TEACHING: PROCEDURE TEACHING PT GIVEN WRITTEN AND VERBAL PRE-PROCEDURE INSTRUCTIONS. PT VERBALIZES UNDERSTANDING OF ALL EDUCATION AND INSTRUCTIONS. BRIDGER GREEN 05/13/2018 12:00:04 PM > . PROCEDURE CODES FA211 ESTABILISHED PATIENT [facility] CHARGE DISPOSITION & COMMUNICATION FOLLOW UP POST (REASON: BILAT.L4/5-L5/S1 LFBT) ELECTRONICALLY SIGNED BY KENDALL ROY ON 05/13/2018 AT 02:47 PM EST DISCLAIMER : THIS IS A VISIT SUMMARY EXTRACTED FROM THE [employer] CHART. IT IS NOT A COPY OF THE [employer] PROGRESS NOTE. ALEXANDRA
== END ==
LOC: M PAIN 11:15
PROVIDERS: ATTEND Nurse Practitioner Family
DX: M43.17 Spondylolisthesis, lumbosacral region (principal); G89.29 Other chronic pain; E03.9 Hypothyroidism, unspecified; J45.20 Mild intermittent asthma, uncomplicated; R73.01 Impaired fasting glucose; M85.80 Other specified disorders of bone density and structure, unspecified site; E55.9 Vitamin D deficiency, unspecified; Z68.41 Body mass index [BMI] 40.0-44.9, adult; Z86.59 Personal history of other mental and behavioral disorders; E66.01 Morbid (severe) obesity due to excess calories; Z79.899 Other long term (current) drug therapy

== ENCOUNTER → 2018-05-20 | Outpatient (REF) | payer MEDICARE, MEDICAID ==
[~2018-05-20] MED LIST changes: +CALC12504 PO; -CALC500T36 PO; +HYDR-3715 PO; -NORCOTAB PO
[2018-05-20 16:15] LABS: ALT/SGPT 28 U/L (12-78); BILIRUBIN,TOTAL 0.2 MG/DL (0.2-1.0); BLOOD UREA NITROGEN 8 MG/DL (7-18); CALCIUM LEVEL 8.9 MG/DL (8.8-10.2); CARBON DIOXIDE LEVEL 28 MEQ/L (21-32); CHLORIDE LEVEL 94 MEQ/L (98-107); CREATININE FOR GFR 0.68 MG/DL (0.55-1.30); GLOMERULAR FILTRATION RATE > 60.0 (>45); GLUCOSE, FASTING 73 MG/DL (70-100); POTASSIUM SERUM 4.4 MEQ/L (3.5-5.1); SODIUM LEVEL 129 MEQ/L (136-145); TOTAL PROTEIN 6.7 GM/DL (6.4-8.2)
[2018-05-20 16:38] LABS: TOTAL 25(OH) VITAMIN D 43.2 NG/ML (30.0-100.0)
== END ==
LOC: M SFHCPLAZ 14:19
PROVIDERS: ATTEND Nurse Practitioner Family
DX: I10 Essential (primary) hypertension (principal); R73.01 Impaired fasting glucose; E03.9 Hypothyroidism, unspecified; E55.9 Vitamin D deficiency, unspecified
CPT/HCPCS: 36415; 80053; 82306; 84443; G0463

== ENCOUNTER → 2018-06-02 | Outpatient (CLI) | payer MEDICARE, MEDICAID ==
[~2018-06-02] MED LIST changes: +BUPIVACAINE HCL 0.25% 30 ML VIAL As Ordered ONE; -CALC12504 PO; +CALC500T36 PO; +ISOVUE-M 300 61% 15ML VIAL (Q9967) As Ordered ONE; +LIDOCAINE 1% SDV INJ 30 ML VIAL As Ordered ONE; +TRIAMCINOLONE ACETONIDE SUSP 40 MG/ML VIAL (J3301) As Ordered ONE; +diazePAM 5 MG TAB As Ordered ONE
--- NOTE | 2018-06-02 14:28 | REP ---
Partial lumbar spine series: Two views . History: Injection procedure for pain. 25 seconds of fluoroscopy time is reported. Findings: A sequence of two fluoroscopically obtained last image hold procedural spot radiographs of the lumbar spine document needle position and contrast injection associated with injection procedure. Electronically Signed by Michael Caraballo MD 06/02/2018 02:18 P
--- NOTE | 2018-06-04 01:11 | ECWPNPC ---
PATIENT NAME: LUZMARIA FUNES : 1955 GENDER: FEMALE VISIT DATE: 06/02/2018 DISCHARGE DATE: 06/02/18 1336 VISIT LOCKED DATE TIME: PHYSICIAN: DANIELLE CAMPUZANO MD RESOURCE: DANIELLE CAMPUZANO MD REASON FOR APPOINTMENT 1. BILAT.L4/5-L5/S1 LFBT HISTORY OF PRESENT ILLNESS HISTORY OF PRESENT ILLNESS: PAIN THE PATIENT DESCRIBES THE PAIN... FALL RISK SCREENING: SCREENING :NO FALLS REPORTED IN THE LAST YEAR CURRENT MEDICATIONS TAKING KLONOPIN 1 MG TABLET 1 TABLET ORALLY BID, NOTES: 729 TAKING COGENTIN 0.5 MG 1 TAB(S) 2 TIMES A DAY, NOTES: 729 TAKING EFFEXOR XR 150 MG CAPSULE EXTENDED RELEASE 24 HOUR 225MG-1 CAPSULE WITH FOOD ORALLY ONCE A DAY, NOTES: PT REPORTS TOTAL 300MG; 729 TAKING BIOFREEZE ROLL-ON 4 % GEL 1 APPLICATION TO AFFECTED AREA NEEDED EXTERNALLY ONCE A DAY, NOTES: 06/01/18 AM TAKING MULTIVITAMIN ADULTS - TABLET ORALLY DAILY, NOTES: 729 TAKING PALIPERIDONE PALMITATE 234 MG/1.5ML SUSPENSION 1.5 ML INTRAMUSCULAR , NOTES: 05/18/18 TAKING RISPERIDONE 1 MG TABLET 1 TABLET ORALLY 1MG AM 2MG HS, NOTES: 729 TAKING DONEPEZIL HCL 10 MG TABLET 1 TABLET AT BEDTIME ORALLY ONCE A DAY, NOTES: 06/01/181829 TAKING ROZEREM 8 MG 1 TABLET AT BEDTIME NEEDED, NOTES: 06/01/181829 TAKING BENEFIBER - POWDER ORALLY , NOTES: 06/01/18 PM TAKING TIZANIDINE HCL 2 MG TABLET 1 TABLET ORALLY TAKE 1 AT MIDDAY AND 1 TAB AT BEDTIME, NOTES: 06/01/181829 TAKING CALCIUM 500 MG TABLET 1 TABLET WITH MEALS ORALLY DAILY, NOTES: 729 TAKING MELOXICAM 7.5 MG TABLET 1 TABLET ORALLY BID, NOTES: PT REPORTS DAILY; 729 TAKING STOOL SOFTENER 100 MG CAPSULE 1 CAPSULE NEEDED ORALLY ONCE A DAY, NOTES: 06/01/18 AM TAKING LISINOPRIL 20 MG TABLET 1 TABLET ORALLY ONCE A DAY, NOTES: 729 TAKING VITAMIN D 2000 UNIT CAPSULE 1 CAPSULE ORALLY ONCE A DAY, NOTES: 729 TAKING LEVOTHYROXINE SODIUM 50 MCG TABLET 1 TABLET ON AN EMPTY STOMACH IN THE MORNING ORALLY ONCE A DAY, NOTES: 0730 NOT-TAKING LISINOPRIL 20 MG TABLET 1 TABLET ORALLY ONCE A DAY, NOTES: DUPLICATE NOT-TAKING LEVOTHYROXINE SODIUM 50 MCG TABLET 1 TABLET ON AN EMPTY STOMACH IN THE MORNING ORALLY ONCE A DAY, NOTES: DUPLICATE NOT-TAKING TRAZODONE HCL 50 MG TABLET 1/2 (25MG) TABLET AT BEDTIME NEEDED ORALLY ONCE A DAY HS, NOTES: TAKES HALF AT BEDTIME MEDICATION LIST REVIEWED AND RECONCILED WITH THE PATIENT PAST MEDICAL HISTORY HYPOTHYROIDISM MYOPIC ASTIGMATISM CALCANEAL SPURS ASTHMA, MILD INTERMITTENT IFG OSTEOPENIA, DEXA 01/18, T SCORE -2, AT SPINE, OSTEOPOROSIS ON DEXA 2014 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 RALOXIFENE STOPPED SCHIZOAFFECTIVE D/O WITH BIPOLAR FEATURES 11/15 EKG NEG PN 11/18 MORBID OBESITY MEMORY IMPAIRMENT, NEG WORK UP 06/18. XR LS SPINE 04/21 MILD SCOLIOSISCONVEX L/ BILATERAL L5 SPONDYLOLYSIS WITH GRADE 2 SPODYLOLITHESIS/ADV L5-S1 DDD/MOD T12-L1 DDD JOSEPH 09/18 FEV1 2.19 MRI LSPINE 12/19 - DIFFUSE DISC BULGE AT L4-5, L5-S1 WITH MIN THECAL SAC COMPRESSION, GRADE 2 SPONDYLOLITHESIS OF L5 ON S1 WITH ASSOC L5 PARS DEFECT, THERE IS COMPRESSION OF THE L5 NERVES IN THE NEURAL FORAMINA. SIADH: SECONDARY TO MEDICATIONS AND EXCESSIVE WATER INTAKE COLONOSCOPY 26/06/2017: NORMAL, NO SPECIMENS COLLECTED ALLERGIES N.K.D.A. SURGICAL HISTORY L BREAST BX 11/04/09 L BREAST LUMPECTOMY--DCIS 11/27/09 COLONOSCOPY: POLYPS WITHOUT ADENOMATOUS OR HYPERPLASTIC FEATURES; REPEAT 10 YEARS 2012 FAMILY HISTORY FATHER: ALIVE, DEMENTIA, DIAGNOSED WITH HYPERTENSION MOTHER: ALIVE SIBLINGS: ALIVE, SISTER FEMALE CANCER UNKNOWN PATERNAL GRAND FATHER: PATERNAL GRAND MOTHER: MATERNAL GRAND FATHER: MATERNAL GRAND MOTHER: 1 BROTHER(S) , 3 SISTER(S) - HEALTHY. SOCIAL HISTORY GENERAL: TOBACCO USE ARE YOU A:NONSMOKER NEVER SMOKER LATEX QUESTIONNAIRE LATEX ALLERGY : HAVE YOU EVER DEVELOPED ANY TYPE OF REACTION AFTER HANDLING LATEX PRODUCTS SUCH RUBBER GLOVES, CONDOMS, DIAPHRAGMS, BALLOONS, SOCKS, OR UNDERWEAR?NO LATEX ALLERGY : HAVE YOU EVER DEVELOPED ANY TYPE OF REACTION DURING OR AFTER DENTAL APPOINTMENT, VAGINAL/RECTAL EXAMINATION, SURGICAL PROCEDURE, OR ANY OTHER EXPOSURE?NO DATE ASKED : 05/20/2018 LATEX RISK : HAVE YOU EVER HAD ANY DIFFICULTY BREATHING OR HIVES AFTER EATING OR HANDLING ANY FRUITS, OR VEGETABLES; SUCH KIWI, BANANAS, STONE FRUITS, OR CHESTNUTSNO LATEX RISK : DO YOU HAVE A PREVIOUS PERSONAL HISTORY OF MORE THAN NINE SURGERIES, SPINA BIFIDA, OR REPEATED CATHERTIZATIONS? NO LATEX RISK : ARE YOU FREQUENTLY EXPOSED TO LATEX PRODUCTS IN YOUR OCCUPATION?NO BMI CARE GOAL FOLLOW-UP ABOVE NORMAL BMI FOLLOW-UPDIETARY MANAGEMENT EDUCATION, GUIDANCE, AND COUNSELING ALCOHOL SCREENING DID YOU HAVE A DRINK CONTAINING ALCOHOL IN THE PAST YEAR?NO POINTS0 INTERPRETATIONNEGATIVE RECREATIONAL DRUG USE DRUG USE?NO CAFFEINE CAFFEINE USE?YES DIET PEPSI- 1/DAY SEXUAL HX HAD SEX IN THE LAST 12 MONTHS (VAGINAL, ORAL, OR ANAL)?NO HAVE YOU EVER HAD AN STD?NO HIV / HEP-C SCREENING HIV TEST OFFERED TO PATIENT:YES DATE OFFERED:05/27/2016 TEST ACCEPTED:NO HEP-C TEST OFFERED TO PATIENT:YES DATE OFFERED:05/27/2016 REASON:PATIENT DECLINED TEST ACCEPTED:NO REASON:PATIENT DECLINED CHRISTIAN ISLAM. LANGUAGE TAJIK. EDUCATION 12 TH GRADE GRADUATE. LEARNING BARRIERS / SPECIAL NEEDS CHANGE FROM LAST VISIT?NO BARRIERS TO LEARNING?NO HEARING IMPAIRED?NO VISION IMPAIRED?YES COGNITIVELY IMPAIRED?NO :CORRECTIVE LENSES READINESS TO LEARN?YES LEARNING PREFERENCES?NO LEARNING CAPABILITIES PRESENT?YES EMOTIONAL BARRIERS?NO SPECIAL DEVICES?NO INDUSTRIAL AUTOMATION SPECIALIST NEEDED?NO DOMESTIC VIOLENCE DO YOU FEEL SAFE IN YOUR ENVIRONMENT?YES OCCUPATION: DISABLED. DIET: REGULAR. EXERCISE: WALKS. MARITAL STATUS: SINGLE. OTHERS AT HOME: NONE. NEW PATIENT PAIN DIARY FROM 0-10, WHAT LEVEL IS YOUR PAIN TODAY?4 PAIN CLINIC PFS, CLERGY, PUBLIC HEALTH REFERRALS PFS REFERRAL NEEDED?NO CLERGY REFERRAL NEEDED?NO PUBLIC HEALTH REFERRAL NEEDED?NO WAS THE PROVIDER NOTIFIED OF ANY PERTINENT INFO?YES HAS THE PATIENT BEEN EDUCATED REGARDING HIS/HER PLAN OF CARE?YES HAS THE PATIENT BEEN EDUCATED REGARDING PAIN, THE RISK FOR PAIN, THE IMPORTANCE OF EFFECTIVE PAIN MANAGEMENT, AND THE PAIN ASSESSMENT PROCESS?YES ADVANCE DIRECTIVE ADVANCE DIRECTIVE DISCUSSED WITH PATIENT:YES PT DECLINED HCP INFO AND ASSISTANCE AT THIS TIME. 06/02/18 REVEIWED WITH PATIENT 9-6-18 BVREVIEWED WITH PT 05/13/18 1135 BVREVIEWED WITH PATIENT 06/02/18 1150 JS. HOSPITALIZATION/MAJOR DIAGNOSTIC PROCEDURE [facility]/[place] 01/19 [facility] [place] REVIEW OF SYSTEMS REVIEWED BY: PROVIDER: . CONSTITUTIONAL: ANY CHANGE IN YOUR MEDICAL CONDITION? NO . CHILLS NO . FEVER NO . INFECTION: DO YOU HAVE NEW INFECTIONS? NO . DO YOU HAVE HISTORY OF MRSA? NO . MUSCULOSKELETAL: ANY NEW PATTERNS OF PAIN OR NUMBNESS? NO . GASTROENTEROLOGY: ANY NEW CHANGE IN BOWEL CONTROL? YES, STATES CONSTIPATION . GENITOURINARY: ANY NEW CHANGE IN BLADDER CONTROL? YES, INCONTINENCE . IS THERE A CHANCE YOU COULD BE ? NO . HEMATOLOGY/LYMPH: DO YOU TAKE ANY BLOOD THINNERS? (FOR EXAMPLE- COUMADIN, PLAVIX, AGGRENOX, PLATEL, PRADAXA, OR XARELTO) NO . WHEN WAS YOUR LAST DOSE? DATE: TIME: . NEUROLOGY: HAVE YOU FALLEN IN THE PAST 12 MONTHS? NO . ANY NEW EXTREMITY NUMBNESS OR WEAKNESS? NO . CARDIOLOGY: DO YOU HAVE A PACEMAKER OR DEFIBRILLATOR? NO . RESPIRATORY: HAVE YOU BEEN SICK IN THE PAST WEEK? NO . FEVER NO . FLU LIKE SYMPTOMS? NO . COUGH NO . INTEGUMENTARY: DO YOU HAVE ANY RASHES OR OPEN SORES? NO . ALLERGIC/IMMUNO: ARE YOU ALLERGIC TO IV DYE? NO . ANY NEW ALLERGIES? NO . PSYCHIATRIC: DO YOU HAVE THOUGHTS OF HURTING YOURSELF OR SOMEONE ELSE? NO . ARE YOU ABUSED, NEGLECTED, OR IN AN UNSAFE ENVIRONMENT? NO . ENDOCRINOLOGY: ARE YOU DIABETIC? NO . OTHER: DO YOU NEED ANY PRESCRIPTIONS? NO . IF YES, PLEASE LIST: ____ . ANY NEW PROBLEMS WITH YOUR MEDICATIONS? NO . WHEN DID YOU LAST EAT? ____06/01/18 1700 . WHEN DID YOU LAST DRINK? ____06/02/18 0715 . WHAT DID YOU LAST DRINK? ____WATER . NAME OF PERSON DRIVING YOU HOME? ____SALLY MARIN . DO YOU HAVE ANY OTHER QUESTIONS OR CONCERNS NO . VITAL SIGNS WT 182.4 LBS, HT 56.25 IN, BMI 40.53 INDEX, BP 117/72 MM HG, HR 91 /MIN, RR 18 /MIN, TEMP 98.0 F, OXYGEN SAT % 100%, SAFE IN ENV? (Y/N) YES, NA INITIALS AW 1044, REVIEWED BY: RHETT. ASSESSMENTS SPONDYLOSIS OF LUMBAR REGION WITHOUT MYELOPATHY OR RADICULOPATHY - M47.816 (PRIMARY) SPONDYLOSIS OF LUMBOSACRAL REGION WITHOUT MYELOPATHY OR RADICULOPATHY - M47.817 PROCEDURES PN LUMBAR FACET BLOCK THERAPEUTIC PRE PROCEDURE DIAGNOSIS LUMBAR SPONDYLOSIS, LUMBOSACRAL SPONDYLOSIS POST PROCEDURE DIAGNOSIS LUMBAR SPONDYLOSIS, LUMBOSACRAL SPONDYLOSIS PROCEDURE BILATERAL L4-L5 AND BILATERAL L5-S1 LUMBAR FACET THERAPEUTIC BLOCK SURGEON DR. DANIELLE CAMPUZANO SPIRITUAL ADVISOR NONE ANESTHESIA LOCAL PRE PROCEDURE NOTE THE PATIENT HAS A HISTORY OF CHRONIC LOW BACK PAIN. I EVALUATE THE PATIENT AND REVIEWED THE CHART. I WENT OVER THE RISKS, ALTERNATIVES, AND BENEFITS ASSOCIATED WITH THIS PROCEDURE. THE PATIENT WOULD LIKE TO PROCEED AND GIVE CONSENT TO PERFORMED THE PROCEDURE. THE PATIENT DENIES UNEXPLAINABLE WEIGHT LOSS, FEVER, CHILLS, OR NEW CHANGES IN URINARY OR BOWEL CONTROL DESCRIPTION OF PROCEDURE THE PATIENT WAS BROUGHT TO THE PROCEDURE ROOM AND PLACED IN THE PRONE POSITION. THE LUMBOSACRAL AREA WAS CLEANED WITH CHLORAPREP SOLUTION AND DRAPED ASEPTICALLY. THE PROCEDURE WAS DONE UNDER STERILE CONDITIONS. I CHECKED LATERALITY AND THE LEVEL WHERE THE PROCEDURE WAS GOING TO BE PERFORMED WITH THE PATIENT AND THE SUPPORTING STAFF AT THE MOMENT OF THE TIME OUT IN THE PROCEDURE ROOM. UNDER FLUOROSCOPIC GUIDANCE, THE TARGET POINT WAS SELECTED AT THE RIGHT AND LEFT L4-L5 AND RIGHT AND LEFT L5-S1 FACET JOINT. TARGET POINT WAS SELECTED AFTER LATERAL ROTATION AND TILT OF THE MAGNIFIER OF THE C-ARM. LIDOCAINE 0.5% WAS USED TO NUMB THE SKIN AND THE SUBCUTANEOUS TISSUE BELOW IT. SPINAL NEEDLES, 22-GAUGE, WERE ADVANCED UNDER FLUOROSCOPIC GUIDANCE AND FOLLOWING PATIENT FEEDBACK UNTIL THE TARGETS WERE TOUCHED. THE POSITION OF THE NEEDLES WAS VERIFIED WITH AP AND LATERAL VIEWS. AFTER PROPER POSITION OF THE NEEDLES WAS ACHIEVED, ISOVUE-M DYE 30% 0.1 ML WAS INJECTED SHOWING ADEQUATE SPREAD OF THE DYE. THEN A SOLUTION OF 1.9 ML OF BUPIVACAINE 0.125% OF KENALOG 10 MG WAS INJECTED AT EACH SITE. THERE WAS NO EVIDENCE OF BLOOD, PARESTHESIA OR CEREBROSPINAL FLUID DURING THE PROCEDURE. THE PATIENT WAS SENT TO THE RECOVERY ROOM. THE PATIENT WAS MOVING THE EXTREMITIES AND DOING WELL. THERE WAS NO COMPLICATION DURING THE PROCEDURE. FLUOROSCOPY TIME WAS 25 SECONDS POST PROCEDURE NOTE THE PATIENT WILL BE SEEN IN A FOLLOW UP IN THE NEXT FEW WEEKS. INSTRUCTIONS WERE GIVEN, QUESTIONS WERE ANSWERED, AND THE PATIENT EXPRESSED UNDERSTANDING AND AGREES WITH THE PLAN. I, RUMA FRENCH, DOCUMENTED THE ABOVE INFORMATION ACTING A SCRIBE FOR DR. CAMPUZANO. I HAVE REVIEWED THE ABOVE DOCUMENT, WRITTEN BY RUMA BUSTAMANTEIBE AND I VERIFY THAT IT IS ACCURATE. DIAGNOSTIC IMAGING [facility] FACET BLOCK (PAIN)[id number] PROCEDURE CODES 6045F RADXPS IN END [id number] PXD [id number] INJ PARAVERT F JNT L/S 1 LEV, MODIFIERS: 50 [id number] INJ PARAVERT F JNT L/S 2 LEV, MODIFIERS: 50 DISPOSITION & COMMUNICATION FOLLOW UP 3 WEEKS ELECTRONICALLY SIGNED BY DANIELLE CAMPUZANO MD, MD ON 06/03/2018 AT 03:40 PM EDT DISCLAIMER : THIS IS A VISIT SUMMARY EXTRACTED FROM THE [employer] CHART. IT IS NOT A COPY OF THE [employer] PROGRESS NOTE. MTDD
== END ==
LOC: M PAIN 10:45
PROVIDERS: ATTEND Anesthesiology
DX: G89.29 Other chronic pain (principal); M47.816 Spondylosis without myelopathy or radiculopathy, lumbar region; M47.817 Spondylosis without myelopathy or radiculopathy, lumbosacral region; E03.9 Hypothyroidism, unspecified; J45.20 Mild intermittent asthma, uncomplicated; E55.9 Vitamin D deficiency, unspecified; M81.0 Age-related osteoporosis without current pathological fracture; M85.80 Other specified disorders of bone density and structure, unspecified site; E66.01 Morbid (severe) obesity due to excess calories; Z68.41 Body mass index [BMI] 40.0-44.9, adult; Z79.899 Other long term (current) drug therapy; Z86.59 Personal history of other mental and behavioral disorders
CPT/HCPCS: 64493; 64494; J3301; Q9967

== ENCOUNTER → 2018-06-30 | Outpatient (CLI) | payer MEDICARE, MEDICAID ==
[~2018-06-30] MED LIST changes: -BUPIVACAINE HCL 0.25% 30 ML VIAL As Ordered ONE; +CALC12504 PO; -CALC500T36 PO; -ISOVUE-M 300 61% 15ML VIAL (Q9967) As Ordered ONE; -LIDOCAINE 1% SDV INJ 30 ML VIAL As Ordered ONE; -TRIAMCINOLONE ACETONIDE SUSP 40 MG/ML VIAL (J3301) As Ordered ONE; -diazePAM 5 MG TAB As Ordered ONE
--- NOTE | 2018-07-16 23:59 | ECWPNPC ---
PATIENT NAME: LUZMARIA FUNES : 1955 GENDER: FEMALE VISIT DATE: 06/30/2018 DISCHARGE DATE: 06/30/18 1218 VISIT LOCKED DATE TIME: PHYSICIAN: GABRIELLA YUAN RESOURCE: GABRIELLA YUAN REASON FOR APPOINTMENT 1. POST PROC HISTORY OF PRESENT ILLNESS HISTORY OF PRESENT ILLNESS: HERE FOR POST PROCEDURE F/U.HAD BILATERAL L4/5-L5/S1 THERAPEUTIC LUMBAR BLOCK ON 06/02/18.REPORTING IMPROVEMENT IN PAIN THAT CONTINUES TODAY.RATING PAIN VAS 2/10. PAIN THE PATIENT DESCRIBES THE PAIN... FALL RISK SCREENING: SCREENING :NO FALLS REPORTED IN THE LAST YEAR CURRENT MEDICATIONS TAKING KLONOPIN 1 MG TABLET 1 TABLET ORALLY BID TAKING COGENTIN 0.5 MG 1 TAB(S) 2 TIMES A DAY TAKING EFFEXOR XR 150 MG CAPSULE EXTENDED RELEASE 24 HOUR 225MG-1 CAPSULE WITH FOOD ORALLY ONCE A DAY TAKING BIOFREEZE ROLL-ON 4 % GEL 1 APPLICATION TO AFFECTED AREA NEEDED EXTERNALLY ONCE A DAY TAKING MULTIVITAMIN ADULTS - TABLET ORALLY DAILY TAKING PALIPERIDONE PALMITATE 234 MG/1.5ML SUSPENSION 1.5 ML INTRAMUSCULAR TAKING RISPERIDONE 1 MG TABLET 1 TABLET ORALLY 1MG AM 2MG HS TAKING DONEPEZIL HCL 10 MG TABLET 1 TABLET AT BEDTIME ORALLY ONCE A DAY TAKING ROZEREM 8 MG 1 TABLET AT BEDTIME NEEDED TAKING BENEFIBER - POWDER ORALLY TAKING STOOL SOFTENER 100 MG CAPSULE 1 CAPSULE NEEDED ORALLY ONCE A DAY TAKING LISINOPRIL 20 MG TABLET 1 TABLET ORALLY ONCE A DAY TAKING VITAMIN D 2000 UNIT CAPSULE 1 CAPSULE ORALLY ONCE A DAY TAKING LEVOTHYROXINE SODIUM 50 MCG TABLET 1 TABLET ON AN EMPTY STOMACH IN THE MORNING ORALLY ONCE A DAY TAKING CALCIUM 500 MG TABLET 1 TABLET WITH MEALS ORALLY DAILY TAKING TIZANIDINE HCL 2 MG TABLET 1 TABLET ORALLY TAKE 1 AT MIDDAY AND 1 TAB AT BEDTIME TAKING MELOXICAM 7.5 MG TABLET 1 TABLET ORALLY BID NOT-TAKING LISINOPRIL 20 MG TABLET 1 TABLET ORALLY ONCE A DAY NOT-TAKING TRAZODONE HCL 50 MG TABLET 1/2 (25MG) TABLET AT BEDTIME NEEDED ORALLY ONCE A DAY HS MEDICATION LIST REVIEWED AND RECONCILED WITH THE PATIENT PAST MEDICAL HISTORY HYPOTHYROIDISM MYOPIC ASTIGMATISM CALCANEAL SPURS ASTHMA, MILD INTERMITTENT IFG OSTEOPENIA, DEXA 01/18, T SCORE -2, AT SPINE, OSTEOPOROSIS ON DEXA 2014 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 RALOXIFENE STOPPED SCHIZOAFFECTIVE D/O WITH BIPOLAR FEATURES 11/15 EKG NEG PN 11/18 MORBID OBESITY MEMORY IMPAIRMENT, NEG WORK UP 06/18. XR LS SPINE 04/21 MILD SCOLIOSISCONVEX L/ BILATERAL L5 SPONDYLOLYSIS WITH GRADE 2 SPODYLOLITHESIS/ADV L5-S1 DDD/MOD T12-L1 DDD JOSEPH 09/18 FEV1 2.19 MRI LSPINE 12/19 - DIFFUSE DISC BULGE AT L4-5, L5-S1 WITH MIN THECAL SAC COMPRESSION, GRADE 2 SPONDYLOLITHESIS OF L5 ON S1 WITH ASSOC L5 PARS DEFECT, THERE IS COMPRESSION OF THE L5 NERVES IN THE NEURAL FORAMINA. SIADH: SECONDARY TO MEDICATIONS AND EXCESSIVE WATER INTAKE COLONOSCOPY 26/06/2017: NORMAL, NO SPECIMENS COLLECTED ALLERGIES N.K.D.A. SURGICAL HISTORY L BREAST BX 11/04/09 L BREAST LUMPECTOMY--DCIS 11/27/09 COLONOSCOPY: POLYPS WITHOUT ADENOMATOUS OR HYPERPLASTIC FEATURES; REPEAT 10 YEARS 2012 FAMILY HISTORY FATHER: ALIVE, DEMENTIA, DIAGNOSED WITH HYPERTENSION MOTHER: ALIVE SIBLINGS: ALIVE, SISTER FEMALE CANCER UNKNOWN PATERNAL GRAND FATHER: PATERNAL GRAND MOTHER: MATERNAL GRAND FATHER: MATERNAL GRAND MOTHER: 1 BROTHER(S) , 3 SISTER(S) - HEALTHY. SOCIAL HISTORY GENERAL: TOBACCO USE ARE YOU A:NONSMOKER NEVER SMOKER HIV / HEP-C SCREENING HIV TEST OFFERED TO PATIENT:YES DATE OFFERED:05/27/2016 TEST ACCEPTED:NO HEP-C TEST OFFERED TO PATIENT:YES DATE OFFERED:05/27/2016 REASON:PATIENT DECLINED TEST ACCEPTED:NO REASON:PATIENT DECLINED OTHERS AT HOME: NONE. EDUCATION 12 TH GRADE GRADUATE. DIET: REGULAR. LANGUAGE LITHUANIAN. DOMESTIC VIOLENCE DO YOU FEEL SAFE IN YOUR ENVIRONMENT?YES NEW PATIENT PAIN DIARY FROM 0-10, WHAT LEVEL IS YOUR PAIN TODAY?4 BMI CARE GOAL FOLLOW-UP ABOVE NORMAL BMI FOLLOW-UPDIETARY MANAGEMENT EDUCATION, GUIDANCE, AND COUNSELING RECREATIONAL DRUG USE DRUG USE?NO EXERCISE: WALKS. LEARNING BARRIERS / SPECIAL NEEDS CHANGE FROM LAST VISIT?NO BARRIERS TO LEARNING?NO HEARING IMPAIRED?NO VISION IMPAIRED?YES COGNITIVELY IMPAIRED?NO :CORRECTIVE LENSES READINESS TO LEARN?YES LEARNING PREFERENCES?NO LEARNING CAPABILITIES PRESENT?YES EMOTIONAL BARRIERS?NO SPECIAL DEVICES?NO CHLORINE CELL TENDER NEEDED?NO PAIN CLINIC PFS, CLERGY, PUBLIC HEALTH REFERRALS PFS REFERRAL NEEDED?NO CLERGY REFERRAL NEEDED?NO PUBLIC HEALTH REFERRAL NEEDED?NO WAS THE PROVIDER NOTIFIED OF ANY PERTINENT INFO?YES HAS THE PATIENT BEEN EDUCATED REGARDING HIS/HER PLAN OF CARE?YES HAS THE PATIENT BEEN EDUCATED REGARDING PAIN, THE RISK FOR PAIN, THE IMPORTANCE OF EFFECTIVE PAIN MANAGEMENT, AND THE PAIN ASSESSMENT PROCESS?YES LATEX QUESTIONNAIRE LATEX ALLERGY : HAVE YOU EVER DEVELOPED ANY TYPE OF REACTION AFTER HANDLING LATEX PRODUCTS SUCH RUBBER GLOVES, CONDOMS, DIAPHRAGMS, BALLOONS, SOCKS, OR UNDERWEAR?NO LATEX ALLERGY : HAVE YOU EVER DEVELOPED ANY TYPE OF REACTION DURING OR AFTER DENTAL APPOINTMENT, VAGINAL/RECTAL EXAMINATION, SURGICAL PROCEDURE, OR ANY OTHER EXPOSURE?NO DATE ASKED : 05/20/2018 LATEX RISK : HAVE YOU EVER HAD ANY DIFFICULTY BREATHING OR HIVES AFTER EATING OR HANDLING ANY FRUITS, OR VEGETABLES; SUCH KIWI, BANANAS, STONE FRUITS, OR CHESTNUTSNO LATEX RISK : DO YOU HAVE A PREVIOUS PERSONAL HISTORY OF MORE THAN NINE SURGERIES, SPINA BIFIDA, OR REPEATED CATHERTIZATIONS? NO LATEX RISK : ARE YOU FREQUENTLY EXPOSED TO LATEX PRODUCTS IN YOUR OCCUPATION?NO CAFFEINE CAFFEINE USE?YES DIET PEPSI- 1/DAY ADVANCE DIRECTIVE ADVANCE DIRECTIVE DISCUSSED WITH PATIENT:YES PT DECLINED HCP INFO AND ASSISTANCE AT THIS TIME. [facility] MARITAL STATUS: SINGLE. ALCOHOL SCREENING DID YOU HAVE A DRINK CONTAINING ALCOHOL IN THE PAST YEAR?NO POINTS0 INTERPRETATIONNEGATIVE OCCUPATION: DISABLED. SEXUAL HX HAD SEX IN THE LAST 12 MONTHS (VAGINAL, ORAL, OR ANAL)?NO HAVE YOU EVER HAD AN STD?NO REVEIWED WITH PATIENT 9-6-18 BVREVIEWED WITH PT 05/13/18 1135 BVREVIEWED WITH PATIENT 06/02/18 1150 JS. HOSPITALIZATION/MAJOR DIAGNOSTIC PROCEDURE [facility]- [facility]ECT[facility] D/O 01/19 [facility] [place] 06/2017 REVIEW OF SYSTEMS REVIEWED BY: PROVIDER: GABRIELLA ARGUETA . CONSTITUTIONAL: ANY CHANGE IN YOUR MEDICAL CONDITION? NO . CHILLS NO . FEVER NO . INFECTION: DO YOU HAVE NEW INFECTIONS? NO . DO YOU HAVE HISTORY OF MRSA? NO . MUSCULOSKELETAL: ANY NEW PATTERNS OF PAIN OR NUMBNESS? NO . GASTROENTEROLOGY: ANY NEW CHANGE IN BOWEL CONTROL? NO . GENITOURINARY: ANY NEW CHANGE IN BLADDER CONTROL? NO . IS THERE A CHANCE YOU COULD BE ? NO . HEMATOLOGY/LYMPH: DO YOU TAKE ANY BLOOD THINNERS? (FOR EXAMPLE- COUMADIN, PLAVIX, AGGRENOX, PLATEL, PRADAXA, OR XARELTO) NO . WHEN WAS YOUR LAST DOSE? DATE: TIME: . NEUROLOGY: HAVE YOU FALLEN IN THE PAST 12 MONTHS? NO . ANY NEW EXTREMITY NUMBNESS OR WEAKNESS? NO . CARDIOLOGY: DO YOU HAVE A PACEMAKER OR DEFIBRILLATOR? NO . RESPIRATORY: HAVE YOU BEEN SICK IN THE PAST WEEK? NO . FEVER NO . FLU LIKE SYMPTOMS? NO . COUGH NO . INTEGUMENTARY: DO YOU HAVE ANY RASHES OR OPEN SORES? NO . ALLERGIC/IMMUNO: ARE YOU ALLERGIC TO IV DYE? NO . ANY NEW ALLERGIES? NO . PSYCHIATRIC: DO YOU HAVE THOUGHTS OF HURTING YOURSELF OR SOMEONE ELSE? NO . ARE YOU ABUSED, NEGLECTED, OR IN AN UNSAFE ENVIRONMENT? NO . ENDOCRINOLOGY: ARE YOU DIABETIC? NO . OTHER: DO YOU NEED ANY PRESCRIPTIONS? NO . IF YES, PLEASE LIST: ____ . ANY NEW PROBLEMS WITH YOUR MEDICATIONS? NO . WHEN DID YOU LAST EAT? ____ . WHEN DID YOU LAST DRINK? ____ . WHAT DID YOU LAST DRINK? ____ . NAME OF PERSON DRIVING YOU HOME? ____ . DO YOU HAVE ANY OTHER QUESTIONS OR CONCERNS NO . VITAL SIGNS WT 182 LBS, HT 56.25 IN, BMI 40.44 INDEX, BP 126/69 MM HG, HR 88 /MIN, RR 18 /MIN, TEMP 98.7 F, OXYGEN SAT % 99%, NA INITIALS AW 1129, REVIEWED BY: EM. EXAMINATION GENERAL EXAMINATION: GENERAL APPEARANCE:AWAKE,ALERT ,PLEAASANT . PSYCHAFFECT NORMAL . LUNGS:LUNG EAST ARE CLEAR TO AUSCULTATION BILATERALLY. GOOD MOVEMENT OF AIR . HEART:S1, S2 IN A REGULAR RATE AND RHYTHM. NO SIGNIFICANT MURMURS, RUBS OR GALLOPS NOTED . ASSESSMENTS SPINAL STENOSIS OF LUMBOSACRAL REGION - M48.07 (PRIMARY) TREATMENT SPINAL STENOSIS OF LUMBOSACRAL REGION CONTINUE TIZANIDINE HCL TABLET, 2 MG, 1 TABLET, ORALLY, TAKE 1 AT MIDDAY AND 1 TAB AT BEDTIME CONTINUE MELOXICAM TABLET, 7.5 MG, 1 TABLET, ORALLY, BID NOTES: HOME STRETCHING EXCERSISES 2X DAY. PROCEDURE CODES FA211 ESTABILISHED PATIENT [facility] CHARGE DISPOSITION & COMMUNICATION FOLLOW UP 2 MONTHS ELECTRONICALLY SIGNED BY ARTI ROYP ON 07/16/2018 AT 08:35 AM EDT DISCLAIMER : THIS IS A VISIT SUMMARY EXTRACTED FROM THE [employer] CHART. IT IS NOT A COPY OF THE [employer] PROGRESS NOTE. ALEXANDRA
== END ==
LOC: M PAIN 10:30
PROVIDERS: ATTEND Nurse Practitioner Family
DX: M48.07 Spinal stenosis, lumbosacral region (principal); E03.9 Hypothyroidism, unspecified; J45.30 Mild persistent asthma, uncomplicated; R73.01 Impaired fasting glucose; M85.88 Other specified disorders of bone density and structure, other site; E55.9 Vitamin D deficiency, unspecified; Z86.59 Personal history of other mental and behavioral disorders; E66.01 Morbid (severe) obesity due to excess calories; Z68.41 Body mass index [BMI] 40.0-44.9, adult; Z79.1 Long term (current) use of non-steroidal anti-inflammatories (NSAID); Z79.899 Other long term (current) drug therapy

== ENCOUNTER → 2018-09-29 | Outpatient (REF) | payer MEDICARE, MEDICAID ==
[~2018-09-29] MED LIST changes: -BENZ0.5T PO; +BENZ0.5T23 PO; -CALC12504 PO; +CALC500T61 PO; -TRAZ-160 PO; +TRAZ-252 PO; +TRAZ1TAB11 PO; -TRAZ25TA PO
== END ==
LOC: M SFHCPLAZ 14:36
PROVIDERS: ATTEND Nurse Practitioner Family
DX: I10 Essential (primary) hypertension (principal); E03.9 Hypothyroidism, unspecified; Z68.41 Body mass index [BMI] 40.0-44.9, adult; Z53.8 Procedure and treatment not carried out for other reasons

== ENCOUNTER → 2018-11-29 | Outpatient (CLI) | payer MEDICARE, MEDICAID ==
--- NOTE | 2018-11-29 12:39 | REPMRS ---
Patient History The patient states she had a clinical breast exam in 07/2018. Patient is postmenopausal, has history of cancer in the left breast at age 54, and is nulliparous. Family history of colorectal cancer under age 50 in identical twin sister. Malignant lumpectomy of the left breast, 2009. Took tamoxifen for 5 years. Took unspecified hormones for 2 years. 3D TOMOSYNTHESIS WAS PERFORMED. Digital Woman Screen Mammo: November 29, 2018 - Exam #: [id number] Bilateral CC and MLO view(s) were taken. Technologist: Tash Arenas Technologist Prior study comparison: August 17, 2017, bilateral digital woman screen mammo performed at [facility]. May 15, 2016, digital woman screen mammo performed at [facility]. FINDINGS: The breast tissue is heterogeneously dense. This may lower the sensitivity of mammography. There has been no change in the appearance of the mammogram from the prior studies. There is a moderate amount of residual fibroglandular tissue which is fairly symmetric. There is no interval development of dominant mass, areas of architectural distortion, or clustered microcalcification typical of malignancy. Assessment: BI-RADS/ACR category 1 mammogram. Negative Mammogram. Recommendation Routine screening mammogram in 1 year (for women over age 40). This mammogram was interpreted with the aid of an FDA-approved computer-aided dectection system. Electronically Signed By: Howard Kee MD 11/29/18 1772
== END ==
LOC: M WHC 11:20
PROVIDERS: ATTEND Nurse Practitioner Family
DX: Z12.31 Encounter for screening mammogram for malignant neoplasm of breast (principal); Z78.0 Asymptomatic menopausal state; Z85.3 Personal history of malignant neoplasm of breast; Z80.0 Family history of malignant neoplasm of digestive organs; Z92.89 Personal history of other medical treatment

== ENCOUNTER → 2018-12-05 | Outpatient (CLI) | payer MEDICARE, MEDICAID | LOC: M PAIN 13:30 | PROVIDERS: ATTEND Nurse Practitioner Family | DX: M48.07 Spinal stenosis, lumbosacral region (principal); E03.9 Hypothyroidism, unspecified; Z79.899 Other long term (current) drug therapy ==

== ENCOUNTER → 2018-12-07 | Outpatient (REF) | payer MEDICARE, MEDICAID ==
[2018-12-07 16:52] LABS: HEMOGLOBIN A1c 5.8 %
[2018-12-07 17:11] LABS: BLOOD UREA NITROGEN 8 MG/DL (7-18); CALCIUM LEVEL 8.8 MG/DL (8.8-10.2); CARBON DIOXIDE LEVEL 28 MEQ/L (21-32); CHLORIDE LEVEL 92 MEQ/L (98-107); CREATININE FOR GFR 0.68 MG/DL (0.55-1.30); GLOMERULAR FILTRATION RATE > 60.0 (>45); GLUCOSE, FASTING 70 MG/DL (70-100); POTASSIUM SERUM 4.6 MEQ/L (3.5-5.1); SODIUM LEVEL 128 MEQ/L (136-145)
[2018-12-07 17:13] LABS: TOTAL 25(OH) VITAMIN D 37.7 NG/ML (30.0-100.0)
== END ==
LOC: M SFHCPLAZ 14:16
PROVIDERS: ATTEND Nurse Practitioner Family
DX: E03.9 Hypothyroidism, unspecified (principal); E55.9 Vitamin D deficiency, unspecified; R73.01 Impaired fasting glucose
CPT/HCPCS: 36415; 80048; 82306; 83036; 84443; G0463

== ENCOUNTER → 2019-04-27 | Outpatient (CLI) | payer MEDICARE, MEDICAID ==
[~2019-04-27] MED LIST changes: +CLON0.5T2 PO; -CLON0.5T8 PO
--- NOTE | 2019-05-17 04:37 | ECWPNPC ---
PATIENT NAME: LUZMARIA FUNES : 1955 GENDER: FEMALE VISIT DATE: 04/27/2019 DISCHARGE DATE: 04/27/19 1241 VISIT LOCKED DATE TIME: PHYSICIAN: GABRIELLA YUAN RESOURCE: GABRIELLA YUAN REASON FOR APPOINTMENT 1. 3 MONTHS HISTORY OF PRESENT ILLNESS HISTORY OF PRESENT ILLNESS: HERE FOR F/U OF CHRONIC LBP..CURRENTLY USING MELOXICAM AND TIZANIDINE WHICH SHE FINDS HELPFUL.DENIES SIDE EFFECTS.RATING PAIN VAS 3-4/10.DISCUSSED MEDICATION AND TREATMENT OPTIONS. PAIN THE PATIENT DESCRIBES THE PAIN... FALL RISK SCREENING: SCREENING :NO FALLS REPORTED IN THE LAST YEAR CURRENT MEDICATIONS TAKING KLONOPIN 1 MG TABLET 1 TABLET ORALLY BID TAKING COGENTIN 0.5 MG 1 TAB(S) 2 TIMES A DAY TAKING EFFEXOR XR 150 MG CAPSULE EXTENDED RELEASE 24 HOUR 225MG-1 CAPSULE WITH FOOD ORALLY ONCE A DAY TAKING PALIPERIDONE PALMITATE 234 MG/1.5ML SUSPENSION 1.5 ML INTRAMUSCULAR , NOTES: PER PT [id number] TAKING RISPERIDONE 1 MG TABLET 1 TABLET ORALLY 1MG AM 2MG HS TAKING DONEPEZIL HCL 10 MG TABLET 1 TABLET AT BEDTIME ORALLY ONCE A DAY TAKING ROZEREM 8 MG 1 TABLET AT BEDTIME NEEDED TAKING BIOFREEZE ROLL-ON 4 % GEL 1 APPLICATION TO AFFECTED AREA NEEDED EXTERNALLY ONCE A DAY TAKING MULTIVITAMIN ADULTS - TABLET ORALLY DAILY TAKING LACTULOSE 10 GM/15ML SOLUTION TAKE 15 MILLILITERS BY MOUTH TWO TO THREE TIMES DAILY FOR CONSTIPATION ORAL TAKING CLONAZEPAM 1 MG TABLET (SCHEDULE IV DRUG) TAKE ONE TABLET BY MOUTH TWICE DAILY AND EVERY FOUR HOURS NEEDED FOR ANXIETY MAX DAILY DOSE THREE TABLETS ORAL TAKING BENZTROPINE MESYLATE 0.5 MG TABLET TAKE ONE TABLET BY MOUTH @8AM AND TAKE ONE TABLET @8PM ORAL TAKING INVEGA TRINZA 819 MG/2.625ML SUSPENSION PREFILLED SYRINGE INJECT ONE SYRINGE INTRAMUSCULARLY FOR A SINGLE DOSE INTRAMUSCULAR TAKING LISINOPRIL 20 MG TABLET 1 TABLET ORALLY ONCE A DAY TAKING TIZANIDINE HCL 2 MG TABLET 1 TABLET ORALLY TAKE 1 AT MIDDAY AND 1 TAB AT BEDTIME TAKING MELOXICAM 7.5 MG TABLET 1 TABLET ORALLY BID TAKING LEVOTHYROXINE SODIUM 50 MCG TABLET 1 TABLET ON AN EMPTY STOMACH IN THE MORNING ORALLY ONCE A DAY TAKING CALCIUM 500 MG TABLET 1 TABLET WITH MEALS ORALLY DAILY TAKING VITAMIN D3 50 MCG (1999) CAPSULE TAKE ONE CAPSULE BY MOUTH @8AM NOT-TAKING BENEFIBER - POWDER ORALLY NOT-TAKING STOOL SOFTENER 100 MG CAPSULE 1 CAPSULE NEEDED ORALLY ONCE A DAY NOT-TAKING VITAMIN D 2000 UNIT CAPSULE 1 CAPSULE ORALLY ONCE A DAY NOT-TAKING VENLAFAXINE HCL ER 150 MG CAPSULE EXTENDED RELEASE 24 HOUR TAKE TWO CAPSULES BY MOUTH @8AM ORAL , NOTES: DUPLICATE NOT-TAKING RISPERIDONE 1 MG TABLET TAKE ONE TABLET BY MOUTH @8AM ORAL , NOTES: DUPLICATE NOT-TAKING DONEPEZIL HCL 10 MG TABLET TAKE ONE TABLET BY MOUTH @8PM ORAL , NOTES: DUPLICATE NOT-TAKING ROZEREM 8 MG TABLET TAKE ONE TABLET BY MOUTH @8PM ORAL , NOTES: DUPLICATE NOT-TAKING LISINOPRIL 20 MG TABLET 1 TABLET ORALLY ONCE A DAY, NOTES: DUPLICATE NOT-TAKING TRAZODONE HCL 50 MG TABLET 1/2 (25MG) TABLET AT BEDTIME NEEDED ORALLY ONCE A DAY HS MEDICATION LIST REVIEWED AND RECONCILED WITH THE PATIENT PAST MEDICAL HISTORY HYPOTHYROIDISM MYOPIC ASTIGMATISM CALCANEAL SPURS ASTHMA, MILD INTERMITTENT IFG OSTEOPENIA, DEXA 01/18, T SCORE -2, AT SPINE, OSTEOPOROSIS ON DEXA 2014 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 RALOXIFENE COMPLETED SCHIZOAFFECTIVE D/O WITH BIPOLAR FEATURES 11/15 EKG NEG PN 11/18 MORBID OBESITY MEMORY IMPAIRMENT, NEG WORK UP 06/18. XR LS SPINE 04/21 MILD SCOLIOSISCONVEX L/ BILATERAL L5 SPONDYLOLYSIS WITH GRADE 2 SPODYLOLITHESIS/ADV L5-S1 DDD/MOD T12-L1 DDD JOSEPH 09/18 FEV1 2.19 MRI LSPINE 12/19 - DIFFUSE DISC BULGE AT L4-5, L5-S1 WITH MIN THECAL SAC COMPRESSION, GRADE 2 SPONDYLOLITHESIS OF L5 ON S1 WITH ASSOC L5 PARS DEFECT, THERE IS COMPRESSION OF THE L5 NERVES IN THE NEURAL FORAMINA. SIADH: SECONDARY TO MEDICATIONS AND EXCESSIVE WATER INTAKE COLONOSCOPY 26/06/2017: NORMAL, NO SPECIMENS COLLECTED NEUROCOGNITIVE IMPAIRMENT ALLERGIES N.K.D.A. SURGICAL HISTORY L BREAST BX 11/04/09 L BREAST LUMPECTOMY--DCIS 11/27/09 COLONOSCOPY: POLYPS WITHOUT ADENOMATOUS OR HYPERPLASTIC FEATURES; REPEAT 10 YEARS 2012 FAMILY HISTORY FATHER: ALIVE, DEMENTIA, DIAGNOSED WITH HYPERTENSION MOTHER: ALIVE SIBLINGS: ALIVE, SISTER FEMALE CANCER UNKNOWN PATERNAL GRAND FATHER: PATERNAL GRAND MOTHER: MATERNAL GRAND FATHER: MATERNAL GRAND MOTHER: 1 BROTHER(S) , 3 SISTER(S) - HEALTHY. SOCIAL HISTORY GENERAL: TOBACCO USE ARE YOU A:NONSMOKER NEVER SMOKER HIV / HEP-C SCREENING HIV TEST OFFERED TO PATIENT:YES DATE OFFERED:05/27/2016 TEST ACCEPTED:NO HEP-C TEST OFFERED TO PATIENT:YES DATE OFFERED:05/27/2016 REASON:PATIENT DECLINED TEST ACCEPTED:NO REASON:PATIENT DECLINED OTHERS AT HOME: NONE. EDUCATION 12 TH GRADE GRADUATE. DIET: REGULAR. LANGUAGE SINHALA. DOMESTIC VIOLENCE DO YOU FEEL SAFE IN YOUR ENVIRONMENT?YES NEW PATIENT PAIN DIARY FROM 0-10, WHAT LEVEL IS YOUR PAIN TODAY?4 BMI CARE GOAL FOLLOW-UP ABOVE NORMAL BMI FOLLOW-UPDIETARY MANAGEMENT EDUCATION, GUIDANCE, AND COUNSELING RECREATIONAL DRUG USE DRUG USE?NO EXERCISE: WALKS. LEARNING BARRIERS / SPECIAL NEEDS CHANGE FROM LAST VISIT?NO BARRIERS TO LEARNING?NO HEARING IMPAIRED?NO VISION IMPAIRED?YES COGNITIVELY IMPAIRED?NO :CORRECTIVE LENSES READINESS TO LEARN?YES LEARNING PREFERENCES?NO LEARNING CAPABILITIES PRESENT?YES EMOTIONAL BARRIERS?NO SPECIAL DEVICES?NO ROTARY KILN OPERATOR NEEDED?NO PAIN CLINIC PFS, CLERGY, PUBLIC HEALTH REFERRALS PFS REFERRAL NEEDED?NO CLERGY REFERRAL NEEDED?NO PUBLIC HEALTH REFERRAL NEEDED?NO WAS THE PROVIDER NOTIFIED OF ANY PERTINENT INFO?YES HAS THE PATIENT BEEN EDUCATED REGARDING HIS/HER PLAN OF CARE?YES HAS THE PATIENT BEEN EDUCATED REGARDING PAIN, THE RISK FOR PAIN, THE IMPORTANCE OF EFFECTIVE PAIN MANAGEMENT, AND THE PAIN ASSESSMENT PROCESS?YES LATEX QUESTIONNAIRE LATEX ALLERGY : HAVE YOU EVER DEVELOPED ANY TYPE OF REACTION AFTER HANDLING LATEX PRODUCTS SUCH RUBBER GLOVES, CONDOMS, DIAPHRAGMS, BALLOONS, SOCKS, OR UNDERWEAR?NO LATEX ALLERGY : HAVE YOU EVER DEVELOPED ANY TYPE OF REACTION DURING OR AFTER DENTAL APPOINTMENT, VAGINAL/RECTAL EXAMINATION, SURGICAL PROCEDURE, OR ANY OTHER EXPOSURE?NO DATE ASKED : 05/20/2018 LATEX RISK : HAVE YOU EVER HAD ANY DIFFICULTY BREATHING OR HIVES AFTER EATING OR HANDLING ANY FRUITS, OR VEGETABLES; SUCH KIWI, BANANAS, STONE FRUITS, OR CHESTNUTSNO LATEX RISK : DO YOU HAVE A PREVIOUS PERSONAL HISTORY OF MORE THAN NINE SURGERIES, SPINA BIFIDA, OR REPEATED CATHERIZATIONS? NO LATEX RISK : ARE YOU FREQUENTLY EXPOSED TO LATEX PRODUCTS IN YOUR OCCUPATION?NO CAFFEINE CAFFEINE USE?YES DIET PEPSI- 1/DAY ADVANCE DIRECTIVE ADVANCE DIRECTIVE DISCUSSED WITH PATIENT:YES PT DECLINED HCP INFO AND ASSISTANCE AT THIS TIME. SCIENTOLOGIST ZOROASTRIAN. MARITAL STATUS: SINGLE. ALCOHOL SCREENING DID YOU HAVE A DRINK CONTAINING ALCOHOL IN THE PAST YEAR?NO POINTS0 INTERPRETATIONNEGATIVE OCCUPATION: DISABLED. SEXUAL HX HAD SEX IN THE LAST 12 MONTHS (VAGINAL, ORAL, OR ANAL)?NO HAVE YOU EVER HAD AN STD?NO REVEIWED WITH PATIENT 9-6-18 BVREVIEWED WITH PT 05/13/18 1135 BVREVIEWED WITH PATIENT 06/02/18 1150 JSREVIEWED WITH PT 12/05/18 1354 NLJ. HOSPITALIZATION/MAJOR DIAGNOSTIC PROCEDURE [facility]- SCHIZOAFFECTIVE D/O 01/19 [facility] [place] 06/2017 REVIEW OF SYSTEMS REVIEWED BY: PROVIDER: GABRIELLA ARGUETA . CONSTITUTIONAL: ANY CHANGE IN YOUR MEDICAL CONDITION? NO . CHILLS NO . FEVER NO . INFECTION: DO YOU HAVE NEW INFECTIONS? NO . DO YOU HAVE HISTORY OF MRSA? NO . MUSCULOSKELETAL: ANY NEW PATTERNS OF PAIN OR NUMBNESS? YES RIGHT SHOULDER . GASTROENTEROLOGY: ANY NEW CHANGE IN BOWEL CONTROL? NO . GENITOURINARY: ANY NEW CHANGE IN BLADDER CONTROL? NO . IS THERE A CHANCE YOU COULD BE ? NO . HEMATOLOGY/LYMPH: DO YOU TAKE ANY BLOOD THINNERS? (FOR EXAMPLE- COUMADIN, PLAVIX, AGGRENOX, PLATEL, PRADAXA, OR XARELTO) NO . WHEN WAS YOUR LAST DOSE? DATE: TIME: . NEUROLOGY: HAVE YOU FALLEN IN THE PAST 12 MONTHS? YES . ANY NEW EXTREMITY NUMBNESS OR WEAKNESS? NO . CARDIOLOGY: DO YOU HAVE A PACEMAKER OR DEFIBRILLATOR? NO . RESPIRATORY: HAVE YOU BEEN SICK IN THE PAST WEEK? YES - RECENT COLD NOW RESOLVED . FEVER NO . FLU LIKE SYMPTOMS? NO . COUGH NO . INTEGUMENTARY: DO YOU HAVE ANY RASHES OR OPEN SORES? NO . ALLERGIC/IMMUNO: ARE YOU ALLERGIC TO IV DYE? NO . ANY NEW ALLERGIES? NO . PSYCHIATRIC: DO YOU HAVE THOUGHTS OF HURTING YOURSELF OR SOMEONE ELSE? NO . ARE YOU ABUSED, NEGLECTED, OR IN AN UNSAFE ENVIRONMENT? NO . ENDOCRINOLOGY: ARE YOU DIABETIC? NO . OTHER: DO YOU NEED ANY PRESCRIPTIONS? NO . IF YES, PLEASE LIST: ____ . ANY NEW PROBLEMS WITH YOUR MEDICATIONS? NO . WHEN DID YOU LAST EAT? ____ . WHEN DID YOU LAST DRINK? ____ . WHAT DID YOU LAST DRINK? ____ . NAME OF PERSON DRIVING YOU HOME? ____ . DO YOU HAVE ANY OTHER QUESTIONS OR CONCERNS NO . VITAL SIGNS WT 178.4 LBS, HT 56.25 IN, BMI 39.64 INDEX, BP 106/67 MM HG, HR 95 /MIN, RR 18 /MIN, TEMP 98.0 F, OXYGEN SAT % 95%, NA INITIALS [id number], REVIEWED BY: HUANG. EXAMINATION GENERAL EXAMINATION: GENERALAWAKE,ALERT ,PLEAASANT . PSYCHAFFECT NORMAL . LUNGS:LUNG EAST ARE CLEAR TO AUSCULTATION BILATERALLY. GOOD MOVEMENT OF AIR . HEART:S1, S2 IN A REGULAR RATE AND RHYTHM. NO SIGNIFICANT MURMURS, RUBS OR GALLOPS NOTED . ASSESSMENTS SPINAL STENOSIS OF LUMBOSACRAL REGION - M48.07 (PRIMARY) TREATMENT SPINAL STENOSIS OF LUMBOSACRAL REGION CONTINUE TIZANIDINE HCL TABLET, 2 MG, 1 TABLET, ORALLY, TAKE 1 AT MIDDAY AND 1 TAB AT BEDTIME CONTINUE MELOXICAM TABLET, 7.5 MG, 1 TABLET, ORALLY, BID NOTES: CONTINUE HOME EXERCISE AND STRETCHING. PROCEDURE CODES FA211 ESTABILISHED PATIENT [facility] CHARGE DISPOSITION & COMMUNICATION FOLLOW UP 3 MONTHS ELECTRONICALLY SIGNED BY KENDALL ROY ON 05/16/2019 AT 04:54 PM EDT DISCLAIMER : THIS IS A VISIT SUMMARY EXTRACTED FROM THE [employer] CHART. IT IS NOT A COPY OF THE [employer] PROGRESS NOTE. ALEXANDRA
== END ==
LOC: M PAIN 11:30
PROVIDERS: ATTEND Nurse Practitioner Family
DX: M48.07 Spinal stenosis, lumbosacral region (principal)

== ENCOUNTER 2019-05-12 10:43 | Emergency (ER) | payer MEDICARE, MEDICAID ==
[~2019-05-12] VITALS: Ht 142.2 cm; Wt 80.0 kg
[2019-05-12 13:55] LABS: HEMOGLOBIN 12.9 g/dl (12.0-15.5); MEAN CORPUSCULAR HEMOGLOBIN 30.6 pg (27.0-33.0); MEAN CORPUSCULAR HGB CONC 33.9 g/dl (32.0-36.5); PLATELET COUNT, AUTOMATED 270 10^3/uL (150-450); RED BLOOD COUNT 4.22 10^6/uL (4.00-5.40); WHITE BLOOD COUNT 5.8 10^3/uL (4.0-10.0)
[2019-05-12 14:23] LABS: ACETAMINOPHEN LEVEL < 2.0 UG/ML (10.0-30.0); ALBUMIN 4.2 GM/DL (3.2-5.2); ALT/SGPT 31 U/L (12-78); AMPHETAMINES LEVEL URINE NEGATIVE (NEGATIVE); BARBITURATES URINE NEGATIVE (NEGATIVE); BENZODIAZEPINES URINE NEGATIVE (NEGATIVE); BILIRUBIN,DIRECT 0.2 MG/DL (0.0-0.2); BILIRUBIN,TOTAL 0.3 MG/DL (0.2-1.0); BLOOD UREA NITROGEN 8 MG/DL (7-18); CALCIUM LEVEL 9.3 MG/DL (8.8-10.2); CANNABINOIDS URINE NEGATIVE (NEGATIVE); CARBON DIOXIDE LEVEL 28 MEQ/L (21-32); CHLORIDE LEVEL 93 MEQ/L (98-107); COCAINE METABOLITE URINE NEGATIVE (NEGATIVE); CREATININE FOR GFR 0.72 MG/DL (0.55-1.30); ETHYL ALCOHOL (ETHANOL) < 0.003 % (0.000-0.010); GLOMERULAR FILTRATION RATE > 60.0 (>45); GLUCOSE, FASTING 92 MG/DL (70-100); METHADONE URINE NEGATIVE (NEGATIVE); OPIATES URINE NEGATIVE (NEGATIVE); PHENCYCLIDINE URINE NEGATIVE (NEGATIVE); POTASSIUM SERUM 4.6 MEQ/L (3.5-5.1); SALICYLATE LEVEL < 1.7 MG/DL (5.0-30.0); SODIUM LEVEL 127 MEQ/L (136-145); TOTAL PROTEIN 6.8 GM/DL (6.4-8.2)
[2019-05-12 14:55] VITALS: BP 145/76
== END 2019-05-12 15:52 | disposition home or self-care (01) ==
LOC: M ED 10:43
DX: F33.1 Major depressive disorder, recurrent, moderate (principal); I10 Essential (primary) hypertension; F20.9 Schizophrenia, unspecified; E03.9 Hypothyroidism, unspecified; Z79.899 Other long term (current) drug therapy; Z79.890 Hormone replacement therapy
CPT/HCPCS: 36415; 80048; 80076; 80307; 81001; 84443; 85027; 87086; 99284; G0480

== ENCOUNTER → 2019-08-07 | Outpatient (CLI) | payer OTHER, MEDICAID ==
--- NOTE | 2019-08-08 01:38 | REPPI ---
Clinical: Acute right shoulder pain. Technique: Internal rotation, external rotation, and Y view of the right shoulder. Findings: Generalized osteopenia is appreciated. Sclerosis and contour irregularity of the glenoid rim is suspected, but incompletely evaluated due to overlying osseous structures. The acromioclavicular joint appears intact and age appropriate. The humeral head demonstrates subtle increase sclerosis and very subtle subchondral cystic changes. No obvious calcified loose bodies are identified. The subacromial space is normal. Surrounding soft tissues are unremarkable. Impression: Irregularity to the glenoid rim cannot be excluded and requires correlation. Age-related degenerative changes to the humeral head are also suggested. Electronically Signed by Josh Bacon MD 08/08/2019 01:30 A
== END ==
LOC: M PLAIMG 14:22
PROVIDERS: ATTEND Physician Assistant
DX: M85.811 Other specified disorders of bone density and structure, right shoulder (principal); M25.511 Pain in right shoulder
CPT/HCPCS: 73030; G0463

== ENCOUNTER → 2019-10-05 | Outpatient (CLI) | payer OTHER, MEDICAID ==
[2019-11-20 08:36] LABS: BLOOD UREA NITROGEN 10 MG/DL (7-18); CREATININE FOR GFR 0.72 MG/DL (0.55-1.30); GLOMERULAR FILTRATION RATE > 60.0 (>45)
== END ==
LOC: M LAB 15:53
PROVIDERS: ATTEND Physician Assistant
DX: S42.121A Displaced fracture of acromial process, right shoulder, initial encounter for closed fracture (principal); X58.XXXA Exposure to other specified factors, initial encounter; Y92.89 Other specified places as the place of occurrence of the external cause

== ENCOUNTER → 2019-11-20 | Outpatient (CLI) | payer OTHER, MEDICAID ==
--- NOTE | 2019-11-20 17:27 | REPVR ---
PROCEDURE INFORMATION: Exam: CT Right Upper Extremity Without Contrast, Shoulder Exam date and time: 11/20/2019 2:20 PM Age: 64 years old Clinical indication: Injury or trauma; Injury history: Disp FX of acromial pro, R shldr, subs for FX w RO; Initial encounter; Blunt trauma (contusions or hematomas); Shoulder; Right TECHNIQUE: Imaging protocol: CT of the Right upper extremity without contrast was performed. Exam focused on the shoulder. Radiation optimization: All CT scans at this facility use at least one of these dose optimization techniques: automated exposure control; mA and/or kV adjustment per patient size (includes targeted exams where dose is matched to clinical indication); or iterative reconstruction. COMPARISON: CR SHOULDER COMPLETE 08/07/2019 2:36 PM FINDINGS: Bones/joints: Minimally displaced comminuted fracture at the proximal acromion. Possible fracture at the inferior glenoid versus a prominent osteophyte. Osteophyte fracture not excluded. Degenerative changes in the glenohumeral joint including joint space narrowing,, osteophytes, subchondral cysts, and sclerosis. Soft tissues: Normal. IMPRESSION: 1. Minimally displaced comminuted fracture at the proximal acromion. 2. Possible fracture at the inferior glenoid versus a prominent osteophyte. Osteophyte fracture not excluded. Electronically signed by: Fei Carty On 11/20/2019 17:27:08 PM
== END ==
LOC: M RAD 14:09
PROVIDERS: ATTEND Orthopaedic Surgery
DX: S42.121D Displaced fracture of acromial process, right shoulder, subsequent encounter for fracture with routine healing (principal); X58.XXXD Exposure to other specified factors, subsequent encounter; Y92.9 Unspecified place or not applicable

== ENCOUNTER → 2019-12-21 | Outpatient (REF) | payer OTHER, MEDICAID ==
[2019-12-21 18:09] LABS: HEMOGLOBIN A1c 5.4 %
[2019-12-21 18:26] LABS: ALBUMIN 3.7 GM/DL (3.2-5.2); ALT/SGPT 26 U/L (12-78); BILIRUBIN,TOTAL 0.2 MG/DL (0.2-1.0); BLOOD UREA NITROGEN 10 MG/DL (7-18); CALCIUM LEVEL 8.8 MG/DL (8.8-10.2); CARBON DIOXIDE LEVEL 27 MEQ/L (21-32); CHLORIDE LEVEL 94 MEQ/L (98-107); CHOLESTEROL LEVEL 168 MG/DL (<200); CHOLESTEROL RISK RATIO 1.866 (<5); CREATININE FOR GFR 0.72 MG/DL (0.55-1.30); FREE T4 0.91 NG/DL (0.76-1.46); GLOMERULAR FILTRATION RATE > 60.0 (>45); GLUCOSE, FASTING 89 MG/DL (70-100); HDL CHOLESTEROL 90 MG/DL (>40); LDL CHOLESTEROL 63 MG/DL (<100); NON-HDL-C 78 MG/DL; POTASSIUM SERUM 4.5 MEQ/L (3.5-5.1); SODIUM LEVEL 127 MEQ/L (136-145); TOTAL PROTEIN 6.2 GM/DL (6.4-8.2); TRIGLYCERIDES LEVEL 76 MG/DL (<150)
[2019-12-21 18:29] LABS: TOTAL 25(OH) VITAMIN D 49.6 NG/ML (30.0-100.0)
== END ==
LOC: M SFHCPLAZ 15:03
PROVIDERS: ATTEND Physician Assistant
DX: E03.9 Hypothyroidism, unspecified (principal); E55.9 Vitamin D deficiency, unspecified; E66.01 Morbid (severe) obesity due to excess calories; I10 Essential (primary) hypertension; Z13.220 Encounter for screening for lipoid disorders; Z79.899 Other long term (current) drug therapy; Z23 Encounter for immunization
CPT/HCPCS: 36415; 80053; 80061; 82306; 83036; 84439; 84443; 90471; 90682; G0463

== ENCOUNTER → 2019-12-25 | Outpatient (CLI) | payer OTHER, MEDICAID ==
--- NOTE | 2019-12-26 08:51 | ECWPNPC ---
PATIENT NAME: LUZMARIA FUNES : 1955 GENDER: FEMALE VISIT DATE: 12/25/2019 DISCHARGE DATE: 12/25/19 1227 VISIT LOCKED DATE TIME: PHYSICIAN: GABRIELLA YUAN PHYSICIAN PAGER NO: ACTIVE RESOURCE: GABRIELLA YUAN REASON FOR APPOINTMENT 1. LOW BACK HISTORY OF PRESENT ILLNESS DEPRESSION SCREENING: PHQ-2 (2015 EDITION) LITTLE INTEREST OR PLEASURE IN DOING THINGS?NOT AT ALL FEELING DOWN, DEPRESSED, OR HOPELESS?NOT AT ALL TOTAL SCORE0 GENERAL: -. FALL RISK SCREENING: SCREENING :NO FALLS REPORTED IN THE LAST YEAR 4 FALLS IN THE PAST YEAR, MIGHT OF HURT RIGHT SHOULDER PAIN SCREENING: PATIENT HAS A COMPLAINT OF ACUTE OR CHRONIC PAIN :YES LOCATION OF PAIN:RIGHT SHOULDER INTENSITY OF PAIN (SCALE OF 1 TO 10):2 WHAT DOES YOUR PAIN FEEL LIKE:ACHING DURATION:CONTINOUS PAIN IS INCREASED BY:ACTIVITIES PAIN IS DECREASED BY:USE OF PAIN MEDICATIONS NURSING NOTE: -. PAIN CENTER INTAKE QUESTIONS: DO YOU HAVE A HISTORY OF MRSA? :NO DO YOU TAKE A BLOOD THINNERS? :NO DO YOU HAVE ANY BLEEDING DISORDERS? :NO ANY NEW NUMBNESS OR WEAKNESS IN YOUR LEGS OR ARMS? :NO ANY PACEMAKER,DEFIBRILLATOR, OR DORSAL COLUMN STIMULATOR? :NO DO YOU HAVE ANY RASHES OR OPEN SORES? :NO ARE YOU ALLERGIC TO IV DYE? :NO ARE YOU DIABETIC? :NO ANY NEW PROBLEMS WITH YOUR MEDICATIONS? :NO HAVE YOU RECEIVED A VACCINE IN THE PAST 30 DAYS? :YES GOT FLU VAC LAST WEEK DO YOU PLAN TO RECEIVE A VACCINE IN THE NEXT 21 DAYS? :NO DO YOU NEED ANY PRESCRIPTION? :NO DO YOU TAKE ANY IMMUNOSUPPRESSIVE MEDICATIONS? :NO IS THERE A CHANCE YOU COULD BE ? :NO ARE YOU BREAST FEEDING? :NO HISTORY OF PRESENT ILLNESS: HERE FOR F/U OF CHRONIC LBP..CURRENTLY USING MELOXICAM AND TIZANIDINE WHICH SHE FINDS HELPFUL.DENIES SIDE EFFECTS.RATING PAIN VAS 3-4/10.DISCUSSED MEDICATION AND TREATMENT OPTIONS. PAIN THE PATIENT DESCRIBES THE PAIN... CURRENT MEDICATIONS TAKING EFFEXOR XR 150 MG CAPSULE EXTENDED RELEASE 24 HOUR 225MG-1 CAPSULE WITH FOOD ORALLY ONCE A DAY TAKING RISPERIDONE 1 MG TABLET 1 TABLET ORALLY 1MG AM 2MG HS TAKING DONEPEZIL HCL 10 MG TABLET 1 TABLET AT BEDTIME ORALLY ONCE A DAY TAKING BENZTROPINE MESYLATE 0.5 MG TABLET TAKE ONE TABLET BY MOUTH @8AM AND TAKE ONE TABLET @8PM ORAL TAKING LISINOPRIL 20 MG TABLET 1 TABLET ORALLY ONCE A DAY TAKING CALCIUM 500 MG TABLET 1 TABLET WITH MEALS ORALLY DAILY TAKING MELOXICAM 7.5 MG TABLET 1 TABLET ORALLY BID TAKING TIZANIDINE HCL 2 MG TABLET 1 TABLET ORALLY TAKE 1 AT MIDDAY AND 1 TAB AT BEDTIME TAKING RAMELTEON 8 MG TABLET 1 TABLET AT BEDTIME NEEDED ORALLY ONCE A DAY TAKING RISPERIDONE 2 MG TABLET 1 TABLET ORALLY ONCE A DAY TAKING LEVOTHYROXINE SODIUM 50 MCG TABLET 1 TABLET ON AN EMPTY STOMACH IN THE MORNING ORALLY ONCE A DAY TAKING CLONAZEPAM 1 MG TABLET (SCHEDULE IV DRUG) TAKE ONE TABLET BY MOUTH TWICE DAILY AND EVERY FOUR HOURS NEEDED FOR ANXIETY MAX DAILY DOSE THREE TABLETS ORAL TAKING TRAZODONE HCL 50 MG TABLET 1/2 (25MG) TABLET AT BEDTIME NEEDED ORALLY ONCE A DAY HS NOT-TAKING KLONOPIN 1 MG TABLET 1 TABLET ORALLY BID NOT-TAKING PALIPERIDONE PALMITATE 234 MG/1.5ML SUSPENSION 1.5 ML INTRAMUSCULAR , NOTES: PER PT [id number] NOT-TAKING BIOFREEZE ROLL-ON 4 % GEL 1 APPLICATION TO AFFECTED AREA NEEDED EXTERNALLY ONCE A DAY NOT-TAKING MULTIVITAMIN ADULTS - TABLET ORALLY DAILY NOT-TAKING LACTULOSE 10 GM/15ML SOLUTION TAKE 15 MILLILITERS BY MOUTH TWO TO THREE TIMES DAILY FOR CONSTIPATION ORAL NOT-TAKING VITAMIN D3 50 MCG (2000 UT) CAPSULE TAKE ONE CAPSULE BY MOUTH @8AM NOT-TAKING COGENTIN 0.5 MG 1 TAB(S) 2 TIMES A DAY NOT-TAKING ROZEREM 8 MG 1 TABLET AT BEDTIME NEEDED NOT-TAKING INVEGA TRINZA 819 MG/2.625ML SUSPENSION PREFILLED SYRINGE INJECT ONE SYRINGE INTRAMUSCULARLY FOR A SINGLE DOSE INTRAMUSCULAR NOT-TAKING BENEFIBER - POWDER ORALLY NOT-TAKING STOOL SOFTENER 100 MG CAPSULE 1 CAPSULE NEEDED ORALLY ONCE A DAY NOT-TAKING VITAMIN D 2000 UNIT CAPSULE 1 CAPSULE ORALLY ONCE A DAY NOT-TAKING VENLAFAXINE HCL ER 150 MG CAPSULE EXTENDED RELEASE 24 HOUR TAKE TWO CAPSULES BY MOUTH @8AM ORAL , NOTES: DUPLICATE NOT-TAKING RISPERIDONE 1 MG TABLET TAKE ONE TABLET BY MOUTH @8AM ORAL , NOTES: DUPLICATE NOT-TAKING DONEPEZIL HCL 10 MG TABLET TAKE ONE TABLET BY MOUTH @8PM ORAL , NOTES: DUPLICATE NOT-TAKING ROZEREM 8 MG TABLET TAKE ONE TABLET BY MOUTH @8PM ORAL , NOTES: DUPLICATE MEDICATION LIST REVIEWED AND RECONCILED WITH THE PATIENT PAST MEDICAL HISTORY HYPOTHYROIDISM MYOPIC ASTIGMATISM CALCANEAL SPURS ASTHMA, MILD INTERMITTENT IFG OSTEOPENIA, DEXA 01/18, T SCORE -2, AT SPINE, OSTEOPOROSIS ON DEXA 2014 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 RALOXIFENE COMPLETED SCHIZOAFFECTIVE D/O WITH BIPOLAR FEATURES 11/15 EKG NEG PN 11/18 MORBID OBESITY MEMORY IMPAIRMENT, NEG WORK UP 06/18. XR LS SPINE 04/21 MILD SCOLIOSISCONVEX L/ BILATERAL L5 SPONDYLOLYSIS WITH GRADE 2 SPODYLOLITHESIS/ADV L5-S1 DDD/MOD T12-L1 DDD JOSEPH 09/18 FEV1 2.19 MRI LSPINE 12/19 - DIFFUSE DISC BULGE AT L4-5, L5-S1 WITH MIN THECAL SAC COMPRESSION, GRADE 2 SPONDYLOLITHESIS OF L5 ON S1 WITH ASSOC L5 PARS DEFECT, THERE IS COMPRESSION OF THE L5 NERVES IN THE NEURAL FORAMINA. SIADH: SECONDARY TO MEDICATIONS AND EXCESSIVE WATER INTAKE COLONOSCOPY 26/06/2017: NORMAL, NO SPECIMENS COLLECTED NEUROCOGNITIVE IMPAIRMENT COMMINUTED ACROMIUM FRACTURE R SHOULDER-11/2019 ALLERGIES N.K.D.A. SURGICAL HISTORY L BREAST BX 11/04/09 L BREAST LUMPECTOMY--DCIS 11/27/09 COLONOSCOPY: POLYPS WITHOUT ADENOMATOUS OR HYPERPLASTIC FEATURES; REPEAT 10 YEARS 2012 FAMILY HISTORY FATHER: 99 YRS, DEMENTIA, DIAGNOSED WITH HYPERTENSION MOTHER: 88 YRS SIBLINGS: ALIVE, SISTER FEMALE CANCER UNKNOWN PATERNAL GRAND FATHER: PATERNAL GRAND MOTHER: MATERNAL GRAND FATHER: MATERNAL GRAND MOTHER: 1 BROTHER(S) , 3 SISTER(S) - HEALTHY. SOCIAL HISTORY GENERAL: TOBACCO USE ARE YOU A:NONSMOKER NEVER SMOKER LATEX QUESTIONNAIRE LATEX ALLERGY : HAVE YOU EVER DEVELOPED ANY TYPE OF REACTION AFTER HANDLING LATEX PRODUCTS SUCH RUBBER GLOVES, CONDOMS, DIAPHRAGMS, BALLOONS, SOCKS, OR UNDERWEAR?NO LATEX ALLERGY : HAVE YOU EVER DEVELOPED ANY TYPE OF REACTION DURING OR AFTER DENTAL APPOINTMENT, VAGINAL/RECTAL EXAMINATION, SURGICAL PROCEDURE, OR ANY OTHER EXPOSURE?NO LATEX RISK : HAVE YOU EVER HAD ANY DIFFICULTY BREATHING OR HIVES AFTER EATING OR HANDLING ANY FRUITS, OR VEGETABLES; SUCH KIWI, BANANAS, STONE FRUITS, OR CHESTNUTSNO LATEX RISK : DO YOU HAVE A PREVIOUS PERSONAL HISTORY OF MORE THAN NINE SURGERIES, SPINA BIFIDA, OR REPEATED CATHERIZATIONS? NO LATEX RISK : ARE YOU FREQUENTLY EXPOSED TO LATEX PRODUCTS IN YOUR OCCUPATION?NO DATE ASKED : 12/25/2019 BMI CARE GOAL FOLLOW-UP ABOVE NORMAL BMI FOLLOW-UPDIETARY MANAGEMENT EDUCATION, GUIDANCE, AND COUNSELING ALCOHOL SCREENING DID YOU HAVE A DRINK CONTAINING ALCOHOL IN THE PAST YEAR?NO POINTS0 INTERPRETATIONNEGATIVE RECREATIONAL DRUG USE DRUG USE?NO CAFFEINE CAFFEINE USE?YES DIET PEPSI- 1/DAY SEXUAL HX HAD SEX IN THE LAST 12 MONTHS (VAGINAL, ORAL, OR ANAL)?NO HAVE YOU EVER HAD AN STD?NO HIV / HEP-C SCREENING HIV TEST OFFERED TO PATIENT:YES DATE OFFERED:05/27/2016 TEST ACCEPTED:NO HEP-C TEST OFFERED TO PATIENT:YES DATE OFFERED:05/27/2016 REASON:PATIENT DECLINED TEST ACCEPTED:NO REASON:PATIENT DECLINED MANDAEN NONDENOMINATIONAL. LANGUAGE CUBAN. EDUCATION 12 TH GRADE GRADUATE. LEARNING BARRIERS / SPECIAL NEEDS CHANGE FROM LAST VISIT?NO BARRIERS TO LEARNING?NO HEARING IMPAIRED?NO VISION IMPAIRED?YES COGNITIVELY IMPAIRED?NO :CORRECTIVE LENSES READINESS TO LEARN?YES LEARNING PREFERENCES?NO LEARNING CAPABILITIES PRESENT?YES EMOTIONAL BARRIERS?NO SPECIAL DEVICES?NO FIELD CONTACT PERSON NEEDED?NO DOMESTIC VIOLENCE DO YOU FEEL SAFE IN YOUR ENVIRONMENT?YES OCCUPATION: DISABLED. DIET: REGULAR. EXERCISE: WALKS. MARITAL STATUS: SINGLE. OTHERS AT HOME: NONE. NEW PATIENT PAIN DIARY TODAY'S VISIT 07/26/19, PATIENT DESCRIBES PAIN : HAVE IT ALL THE TIME, SORE, FROM 0-10, WHAT LEVEL IS YOUR PAIN TODAY? 4, PRECIPITATING FACTORS SITTING, ALLEVIATING FACTORS WALKING, IMPACT ON FUNCTION SOMETIMES. PAIN CLINIC PFS, CLERGY, PUBLIC HEALTH REFERRALS PFS REFERRAL NEEDED?NO CLERGY REFERRAL NEEDED?NO PUBLIC HEALTH REFERRAL NEEDED?NO WAS THE PROVIDER NOTIFIED OF ANY PERTINENT INFO?YES HAS THE PATIENT BEEN EDUCATED REGARDING HIS/HER PLAN OF CARE?YES HAS THE PATIENT BEEN EDUCATED REGARDING PAIN, THE RISK FOR PAIN, THE IMPORTANCE OF EFFECTIVE PAIN MANAGEMENT, AND THE PAIN ASSESSMENT PROCESS?YES ADVANCE DIRECTIVE ADVANCE DIRECTIVE DISCUSSED WITH PATIENT:YES PT DECLINED HCP INFO AND ASSISTANCE AT THIS TIME. HOSPITALIZATION/MAJOR DIAGNOSTIC PROCEDURE [facility]- SCHIZOAFFECTIVE D/O 01/19 [facility] [place] 06/2017 REVIEW OF SYSTEMS CONSTITUTIONAL: ANY RECENT FEVER NO . CHILLS NO . WEIGHT CHANGE OF UNKNOWN REASONS NO . GASTROENTEROLOGY: NEW UNEXPLAINABLE CHANGES IN BOWEL CONTROL NO . CONSTIPATION NO . GENITOURINARY: ANY NEW CHANGE IN BLADDER CONTROL? NO . NEUROLOGY: NEW ONSET DIZZINESS OR NEUROLOGICAL CHANGES NOT MENTIONED NO . NEW NUMBNESS OR PAIN PATTERNS NOT MENTIONED AND PERTINENT TO TODAY'S VISIT NO . CARDIOLOGY: NEW CHEST PRESSURE NO . NEW CHEST PAIN NO . RESPIRATORY: UNEXPLAINABLE COUGH NO . NEW SHORTNESS OF BREATH NO . VITAL SIGNS WT 170.2 LBS, HT 56.25 IN, BMI 37.82 INDEX, BP 114/70 MM HG, HR 95 /MIN, RR 18 /MIN, TEMP 98.2 F, OXYGEN SAT % 100%, SAFE IN ENV? (Y/N) YES, NA INITIALS AW 1152, REVIEWED BY: RHETT. EXAMINATION GENERAL EXAMINATION: GENERALAWAKE,ALERT ,PLEAASANT . PSYCHAFFECT NORMAL . LUNGS:LUNG EAST ARE CLEAR TO AUSCULTATION BILATERALLY. GOOD MOVEMENT OF AIR . HEART:S1, S2 IN A REGULAR RATE AND RHYTHM. NO SIGNIFICANT MURMURS, RUBS OR GALLOPS NOTED . ASSESSMENTS SPINAL STENOSIS OF LUMBOSACRAL REGION - M48.07 (PRIMARY) TREATMENT SPINAL STENOSIS OF LUMBOSACRAL REGION CONTINUE MELOXICAM TABLET, 7.5 MG, 1 TABLET, ORALLY, BID CONTINUE TIZANIDINE HCL TABLET, 2 MG, 1 TABLET, ORALLY, TAKE 1 AT MIDDAY AND 1 TAB AT BEDTIME PROCEDURE CODES FA211 ESTABILISHED PATIENT [facility] CHARGE DISPOSITION & COMMUNICATION FOLLOW UP 4 MONTHS (REASON: MEDICATION MANAGEMENT/LOW BACK PAIN) ELECTRONICALLY SIGNED BY KENDALL ROY ON 12/26/2019 AT 08:49 AM EDT DISCLAIMER : THIS IS A VISIT SUMMARY EXTRACTED FROM THE [employer] CHART. IT IS NOT A COPY OF THE [employer] PROGRESS NOTE. MTDD
== END ==
LOC: M PAIN 11:30
PROVIDERS: ATTEND Nurse Practitioner Family
DX: M48.07 Spinal stenosis, lumbosacral region (principal); E03.9 Hypothyroidism, unspecified; J45.20 Mild intermittent asthma, uncomplicated; R73.01 Impaired fasting glucose; E66.01 Morbid (severe) obesity due to excess calories; Z79.1 Long term (current) use of non-steroidal anti-inflammatories (NSAID); Z79.899 Other long term (current) drug therapy

== ENCOUNTER → 2019-12-29 | Outpatient (CLI) | payer OTHER, MEDICAID ==
--- NOTE | 2019-12-29 14:10 | REPMRS ---
Patient History The patient states she has not had a clinical breast exam in over a year. Family history of colorectal cancer under age 50 in identical twin sister. Malignant lumpectomy of the left breast, 2010. Took tamoxifen for 5 years. Took unspecified hormones for 2 years. 3D TOMOSYNTHESIS WAS PERFORMED. Volpara breast density b. Digital Woman Screen Mammo: December 29, 2019 - Exam #: [id number] Bilateral CC and MLO view(s) were taken. Technologist: Ivet Jean, Technologist Prior study comparison: November 29, 2018, bilateral digital woman screen mammo performed at [facility]. August 17, 2017, bilateral digital woman screen mammo performed at [facility]. FINDINGS: There are scattered fibroglandular densities. There has been no change in the appearance of the mammogram from the prior studies. There is a mild amount of residual fibroglandular tissue which is fairly symmetric. There is no interval development of dominant mass, architectural distortion, or clustered microcalcification suggestive of malignancy. Assessment: BI-RADS/ACR category 1 mammogram. Negative Mammogram. Recommendation Routine screening mammogram in 1 year (for women over age 40). This mammogram was interpreted with the aid of an FDA-approved computer-aided dectection system. Electronically Signed By: Howard Kee MD 12/29/19 1220
== END ==
LOC: M WHC 13:11
PROVIDERS: ATTEND Internal Medicine Hematology
DX: Z12.31 Encounter for screening mammogram for malignant neoplasm of breast (principal); Z85.3 Personal history of malignant neoplasm of breast

== ENCOUNTER → 2020-01-04 | Outpatient (CLI) | payer OTHER, MEDICAID, MEDICARE ==
--- NOTE | 2020-01-04 17:12 | REPPI ---
INDICATION: FALL. COMPARISON: None. TECHNIQUE: AP view of the pelvis with neutral and frog-lateral views of the right and left hip. FINDINGS: No evidence for acute fracture or dislocation. Hip joints are symmetric and demonstrate mild age-related changes including subtle increased sclerosis to the acetabular roof with very minimal marginal spurring and joint space narrowing. No periarticular calcifications. No soft tissue abnormalities. Incidental phleboliths noted in the pelvis. IMPRESSION: Mild symmetric age-related changes. No evidence for acute fracture or dislocation. <Electronically signed by Josh Bacon > 01/04/20 [id number]
--- NOTE | 2020-01-04 17:19 | REPPI ---
INDICATION: FALL COMPARISON: None. TECHNIQUE: AP and lateral views of the sacrum and coccyx. FINDINGS: The bilateral sacroiliac joints appear symmetric, age-appropriate and essentially normal. Significant advanced chronic degenerative and partial compressive changes at the L5-S1 level including a wedge-shaped compression deformity involving the posteroinferior quadrant of the L5 vertebral body with associated sclerotic changes to the contours at L5 and the opposing S1 superior endplate all appear chronic and essentially unchanged compared to 2017. Chronic anterolisthesis at the L5-S1 level is also noted and chronic. Intact and normal without evidence for acute injury. IMPRESSION: Significant degenerative changes at the L5-S1 level chronic and relatively stable compared to 2017. The remainder of the sacrum/coccyx as well as the bilateral sacroiliac joints appear intact. <Electronically signed by Josh Bacon > 01/04/20 [id number]
== END ==
LOC: M PLAIMG 14:32
PROVIDERS: ATTEND Physician Assistant
DX: M16.0 Bilateral primary osteoarthritis of hip (principal); M51.37 Other intervertebral disc degeneration, lumbosacral region; I87.8 Other specified disorders of veins; M48.07 Spinal stenosis, lumbosacral region; W19.XXXA Unspecified fall, initial encounter

== ENCOUNTER → 2020-01-17 | Outpatient (CLI) | payer OTHER, MEDICAID ==
--- NOTE | 2020-01-18 23:22 | ECWPNPC ---
PATIENT NAME: LUZMARIA FUNES : 1955 GENDER: FEMALE VISIT DATE: 01/17/2020 DISCHARGE DATE: 01/17/20 1453 VISIT LOCKED DATE TIME: PHYSICIAN: GABRIELLA YUAN PHYSICIAN PAGER NO: ACTIVE RESOURCE: GABRIELLA YUAN REASON FOR APPOINTMENT 1. INCREASED PAIN HISTORY OF PRESENT ILLNESS GENERAL: PATIENT IS BEING SEEN TODAY ON AN URGENT BASIS. SHE CALLED LAST WEEK DUE TO INCREASE IN LOW BACK PAIN. PATIENT IS A POOR HISTORIAN. STATES SHE SUFFERS FROM DEMENTIA. SHE IS NOT QUITE SURE ON WHY SHE IS HERE TODAY ALTHOUGH SHE DOES REPORT AN INCREASE IN LOW BACK PAIN AND NEW ONSET OF RIGHT SHOULDER PAIN. REPORTS THAT SHE FELL . PATIENT DOESN'T RECALL FALLING OR IF SHE HURT MORE AFTER FALLING. REVIEWED MRI OF THE LS SPINE AND DISCUSSED TREATMENT PLAN. HAS APPOINTMENT WITH ORTHOPEDICS NEXT WEEK FOR RIGHT SHOULDER PAIN. -. FALL RISK SCREENING: SCREENING :TWO OR MORE FALLS WITH INJURY IN THE PAST YEAR RIGHT SHOULDER INJURY, HAS APPT WITH [facility]THO FOR THIS PAIN SCREENING: PATIENT HAS A COMPLAINT OF ACUTE OR CHRONIC PAIN :YES LOCATION OF PAIN:RIGHT SHOULDER, LOW BACK INTENSITY OF PAIN (SCALE OF 1 TO 10):6 WHAT DOES YOUR PAIN FEEL LIKE:ACHING DURATION:CONTINOUS, CONSTANT PAIN IS INCREASED BY:ACTIVITIES PAIN IS DECREASED BY:OTHERS TREATMENT/MEDICATIONS USED TO MANAGE PAIN:OTC PAIN RELIEVERS LEVEL OF RELIEF FROM PAIN TREATMENTS IN THE PAST:50% PAIN HAS INTERFERED WITH THE FOLLOWING:BATHING/DRESSING, WALKING ABILITY, HOUSEWORK, TRANSPORTATION NURSING NOTE: -. PAIN CENTER INTAKE QUESTIONS: DO YOU HAVE A HISTORY OF MRSA? :NO DO YOU TAKE A BLOOD THINNERS? :NO DO YOU HAVE ANY BLEEDING DISORDERS? :NO ANY NEW NUMBNESS OR WEAKNESS IN YOUR LEGS OR ARMS? :NO ANY PACEMAKER,DEFIBRILLATOR, OR DORSAL COLUMN STIMULATOR? :NO DO YOU HAVE ANY RASHES OR OPEN SORES? :NO ARE YOU ALLERGIC TO IV DYE? :NO ARE YOU DIABETIC? :NO ANY NEW PROBLEMS WITH YOUR MEDICATIONS? :NO HAVE YOU RECEIVED A VACCINE IN THE PAST 30 DAYS? :NO DO YOU PLAN TO RECEIVE A VACCINE IN THE NEXT 21 DAYS? :NO DO YOU NEED ANY PRESCRIPTION? :NO DO YOU TAKE ANY IMMUNOSUPPRESSIVE MEDICATIONS? :NO IS THERE A CHANCE YOU COULD BE ? :NO ARE YOU BREAST FEEDING? :NO CURRENT MEDICATIONS TAKING EFFEXOR XR 150 MG CAPSULE EXTENDED RELEASE 24 HOUR 225MG-1 CAPSULE WITH FOOD ORALLY ONCE A DAY TAKING RISPERIDONE 1 MG TABLET 1 TABLET ORALLY 1MG AM 2MG HS TAKING DONEPEZIL HCL 10 MG TABLET 1 TABLET AT BEDTIME ORALLY ONCE A DAY TAKING BENZTROPINE MESYLATE 0.5 MG TABLET TAKE ONE TABLET BY MOUTH @8AM AND TAKE ONE TABLET @8PM ORAL TAKING CALCIUM 500 MG TABLET 1 TABLET WITH MEALS ORALLY DAILY TAKING RAMELTEON 8 MG TABLET 1 TABLET AT BEDTIME NEEDED ORALLY ONCE A DAY TAKING RISPERIDONE 2 MG TABLET 1 TABLET ORALLY ONCE A DAY TAKING LEVOTHYROXINE SODIUM 50 MCG TABLET 1 TABLET ON AN EMPTY STOMACH IN THE MORNING ORALLY ONCE A DAY TAKING CLONAZEPAM 1 MG TABLET (SCHEDULE IV DRUG) TAKE ONE TABLET BY MOUTH TWICE DAILY AND EVERY FOUR HOURS NEEDED FOR ANXIETY MAX DAILY DOSE THREE TABLETS ORAL TAKING TRAZODONE HCL 50 MG TABLET 1/2 (25MG) TABLET AT BEDTIME NEEDED ORALLY ONCE A DAY HS TAKING TIZANIDINE HCL 2 MG TABLET 1 TABLET ORALLY TAKE 1 AT MIDDAY AND 1 TAB AT BEDTIME TAKING LISINOPRIL 20 MG TABLET 1 TABLET ORALLY ONCE A DAY TAKING MELOXICAM 7.5 MG TABLET 1 TABLET ORALLY BID NOT-TAKING KLONOPIN 1 MG TABLET 1 TABLET ORALLY BID NOT-TAKING PALIPERIDONE PALMITATE 234 MG/1.5ML SUSPENSION 1.5 ML INTRAMUSCULAR , NOTES: PER PT [id number] NOT-TAKING BIOFREEZE ROLL-ON 4 % GEL 1 APPLICATION TO AFFECTED AREA NEEDED EXTERNALLY ONCE A DAY NOT-TAKING MULTIVITAMIN ADULTS - TABLET ORALLY DAILY NOT-TAKING LACTULOSE 10 GM/15ML SOLUTION TAKE 15 MILLILITERS BY MOUTH TWO TO THREE TIMES DAILY FOR CONSTIPATION ORAL NOT-TAKING VITAMIN D3 50 MCG (2000 UT) CAPSULE TAKE ONE CAPSULE BY MOUTH @8AM NOT-TAKING COGENTIN 0.5 MG 1 TAB(S) 2 TIMES A DAY NOT-TAKING ROZEREM 8 MG 1 TABLET AT BEDTIME NEEDED NOT-TAKING INVEGA TRINZA 819 MG/2.625ML SUSPENSION PREFILLED SYRINGE INJECT ONE SYRINGE INTRAMUSCULARLY FOR A SINGLE DOSE INTRAMUSCULAR NOT-TAKING BENEFIBER - POWDER ORALLY NOT-TAKING STOOL SOFTENER 100 MG CAPSULE 1 CAPSULE NEEDED ORALLY ONCE A DAY NOT-TAKING VITAMIN D 2000 UNIT CAPSULE 1 CAPSULE ORALLY ONCE A DAY NOT-TAKING VENLAFAXINE HCL ER 150 MG CAPSULE EXTENDED RELEASE 24 HOUR TAKE TWO CAPSULES BY MOUTH @8AM ORAL , NOTES: DUPLICATE NOT-TAKING RISPERIDONE 1 MG TABLET TAKE ONE TABLET BY MOUTH @8AM ORAL , NOTES: DUPLICATE NOT-TAKING DONEPEZIL HCL 10 MG TABLET TAKE ONE TABLET BY MOUTH @8PM ORAL , NOTES: DUPLICATE NOT-TAKING ROZEREM 8 MG TABLET TAKE ONE TABLET BY MOUTH @8PM ORAL , NOTES: DUPLICATE MEDICATION LIST REVIEWED AND RECONCILED WITH THE PATIENT PAST MEDICAL HISTORY HYPOTHYROIDISM MYOPIC ASTIGMATISM CALCANEAL SPURS ASTHMA, MILD INTERMITTENT IFG OSTEOPENIA, DEXA 01/18, T SCORE -2, AT SPINE, OSTEOPOROSIS ON DEXA 2014 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 RALOXIFENE COMPLETED SCHIZOAFFECTIVE D/O WITH BIPOLAR FEATURES 11/15 EKG NEG PN 11/18 MORBID OBESITY MEMORY IMPAIRMENT, NEG WORK UP 06/18. XR LS SPINE 04/21 MILD SCOLIOSISCONVEX L/ BILATERAL L5 SPONDYLOLYSIS WITH GRADE 2 SPODYLOLITHESIS/ADV L5-S1 DDD/MOD T12-L1 DDD JOSEPH 09/18 FEV1 2.19 MRI LSPINE 12/19 - DIFFUSE DISC BULGE AT L4-5, L5-S1 WITH MIN THECAL SAC COMPRESSION, GRADE 2 SPONDYLOLITHESIS OF L5 ON S1 WITH ASSOC L5 PARS DEFECT, THERE IS COMPRESSION OF THE L5 NERVES IN THE NEURAL FORAMINA. SIADH: SECONDARY TO MEDICATIONS AND EXCESSIVE WATER INTAKE COLONOSCOPY 26/06/2017: NORMAL, NO SPECIMENS COLLECTED NEUROCOGNITIVE IMPAIRMENT COMMINUTED ACROMIUM FRACTURE R SHOULDER-11/2019 ALLERGIES N.K.D.A. SURGICAL HISTORY L BREAST BX 11/04/09 L BREAST LUMPECTOMY--DCIS 11/27/09 COLONOSCOPY: POLYPS WITHOUT ADENOMATOUS OR HYPERPLASTIC FEATURES; REPEAT 10 YEARS 2012 FAMILY HISTORY FATHER: 99 YRS, DEMENTIA, DIAGNOSED WITH HYPERTENSION MOTHER: 88 YRS SIBLINGS: ALIVE, SISTER FEMALE CANCER UNKNOWN PATERNAL GRAND FATHER: PATERNAL GRAND MOTHER: MATERNAL GRAND FATHER: MATERNAL GRAND MOTHER: 1 BROTHER(S) , 3 SISTER(S) - HEALTHY. SOCIAL HISTORY GENERAL: TOBACCO USE ARE YOU A:NONSMOKER NEVER SMOKER LATEX QUESTIONNAIRE LATEX ALLERGY : HAVE YOU EVER DEVELOPED ANY TYPE OF REACTION AFTER HANDLING LATEX PRODUCTS SUCH RUBBER GLOVES, CONDOMS, DIAPHRAGMS, BALLOONS, SOCKS, OR UNDERWEAR?NO LATEX ALLERGY : HAVE YOU EVER DEVELOPED ANY TYPE OF REACTION DURING OR AFTER DENTAL APPOINTMENT, VAGINAL/RECTAL EXAMINATION, SURGICAL PROCEDURE, OR ANY OTHER EXPOSURE?NO DATE ASKED : 12/25/2019 LATEX RISK : HAVE YOU EVER HAD ANY DIFFICULTY BREATHING OR HIVES AFTER EATING OR HANDLING ANY FRUITS, OR VEGETABLES; SUCH KIWI, BANANAS, STONE FRUITS, OR CHESTNUTSNO LATEX RISK : DO YOU HAVE A PREVIOUS PERSONAL HISTORY OF MORE THAN NINE SURGERIES, SPINA BIFIDA, OR REPEATED CATHERIZATIONS? NO LATEX RISK : ARE YOU FREQUENTLY EXPOSED TO LATEX PRODUCTS IN YOUR OCCUPATION?NO BMI CARE GOAL FOLLOW-UP ABOVE NORMAL BMI FOLLOW-UPDIETARY MANAGEMENT EDUCATION, GUIDANCE, AND COUNSELING ALCOHOL SCREENING DID YOU HAVE A DRINK CONTAINING ALCOHOL IN THE PAST YEAR?NO POINTS0 INTERPRETATIONNEGATIVE RECREATIONAL DRUG USE DRUG USE?NO CAFFEINE CAFFEINE USE?YES DIET PEPSI- 1/DAY SEXUAL HX HAD SEX IN THE LAST 12 MONTHS (VAGINAL, ORAL, OR ANAL)?NO HAVE YOU EVER HAD AN STD?NO HIV / HEP-C SCREENING HIV TEST OFFERED TO PATIENT:YES DATE OFFERED:05/27/2016 TEST ACCEPTED:NO HEP-C TEST OFFERED TO PATIENT:YES DATE OFFERED:05/27/2016 REASON:PATIENT DECLINED TEST ACCEPTED:NO REASON:PATIENT DECLINED JEWISH SABIANIST. LANGUAGE BAHAMIAN. EDUCATION 12 TH GRADE GRADUATE. LEARNING BARRIERS / SPECIAL NEEDS CHANGE FROM LAST VISIT?NO BARRIERS TO LEARNING?NO HEARING IMPAIRED?NO VISION IMPAIRED?YES COGNITIVELY IMPAIRED?NO :CORRECTIVE LENSES READINESS TO LEARN?YES LEARNING PREFERENCES?NO LEARNING CAPABILITIES PRESENT?YES EMOTIONAL BARRIERS?NO SPECIAL DEVICES?NO FINANCIAL SALES ADVISOR NEEDED?NO DOMESTIC VIOLENCE DO YOU FEEL SAFE IN YOUR ENVIRONMENT?YES OCCUPATION: DISABLED. DIET: REGULAR. EXERCISE: WALKS. MARITAL STATUS: SINGLE. OTHERS AT HOME: NONE. TODAY'S VISIT 07/26/19, PATIENT DESCRIBES PAIN : HAVE IT ALL THE TIME, SORE, FROM 0-10, WHAT LEVEL IS YOUR PAIN TODAY? 4, PRECIPITATING FACTORS SITTING, ALLEVIATING FACTORS WALKING, IMPACT ON FUNCTION SOMETIMES. PAIN CLINIC PFS, CLERGY, PUBLIC HEALTH REFERRALS PFS REFERRAL NEEDED?NO CLERGY REFERRAL NEEDED?NO PUBLIC HEALTH REFERRAL NEEDED?NO WAS THE PROVIDER NOTIFIED OF ANY PERTINENT INFO?YES HAS THE PATIENT BEEN EDUCATED REGARDING HIS/HER PLAN OF CARE?YES HAS THE PATIENT BEEN EDUCATED REGARDING PAIN, THE RISK FOR PAIN, THE IMPORTANCE OF EFFECTIVE PAIN MANAGEMENT, AND THE PAIN ASSESSMENT PROCESS?YES ADVANCE DIRECTIVE ADVANCE DIRECTIVE DISCUSSED WITH PATIENT:YES PT DECLINED HCP INFO AND ASSISTANCE AT THIS TIME. HOSPITALIZATION/MAJOR DIAGNOSTIC PROCEDURE [facility]- SCHIZOAFFECTIVE D/O 01/19 [facility] [place] 06/2017 REVIEW OF SYSTEMS CONSTITUTIONAL: ANY RECENT FEVER NO . CHILLS NO . WEIGHT CHANGE OF UNKNOWN REASONS NO . GASTROENTEROLOGY: NEW UNEXPLAINABLE CHANGES IN BOWEL CONTROL NO . CONSTIPATION NO . GENITOURINARY: ANY NEW CHANGE IN BLADDER CONTROL? NO . NEUROLOGY: NEW ONSET DIZZINESS OR NEUROLOGICAL CHANGES NOT MENTIONED NO . NEW NUMBNESS OR PAIN PATTERNS NOT MENTIONED AND PERTINENT TO TODAY'S VISIT NO . CARDIOLOGY: NEW CHEST PRESSURE NO . NEW CHEST PAIN NO . RESPIRATORY: UNEXPLAINABLE COUGH NO . NEW SHORTNESS OF BREATH NO . VITAL SIGNS WT 169.2 LBS, HT 56.25 IN, BMI 37.59 INDEX, BP 115/62 MM HG, HR 102 /MIN, RR 18 /MIN, TEMP 96.9 F, OXYGEN SAT % 96%, SAFE IN ENV? (Y/N) Y, NA INITIALS [place] 13:42, REVIEWED BY: CAMMY. EXAMINATION GENERAL EXAMINATION: GENERALALERT, POOR HISTORIAN . PSYCHFLAT AFFECT . NECK:NO LYMPHADENOPATHY, SUPPLE, . LUNGS:CLEAR TO AUSCULTATION BILATERALLY, NO WHEEZES, RHONCHI, RALES. HEART:NO MURMURS, REGULAR RATE AND RHYTHM. MUSCULOSKELETAL:TENDER OVER RIGHT SHOULDER . LUMBAR:NONTENDER WITH PALPATION OVER L/S AXIS AND LUMBAR PARASPINALS . ASSESSMENTS ACUTE PAIN DUE TO TRAUMA - G89.11 (PRIMARY) LOW BACK PAIN - M54.5 TREATMENT ACUTE PAIN DUE TO TRAUMA STOP MELOXICAM TABLET, 7.5 MG, 1 TABLET, ORALLY, BID START DICLOFENAC SODIUM TABLET DELAYED RELEASE, 50 MG, 1 TABLET, ORALLY, TWICE A DAY, 30 DAY(S), 60, REFILLS 1 NOTES: PATIENT IS INSTRUCTED TO STOP MOBIC 7.5 MG TABLET A.M. AND P.M. START DICLOFENAC 50 MG TABLET MORNING AND NIGHT WITH FOOD X5 DAYS. AVOID TAKING DRGE-AXN-[id number] PAIN RELIEVERS LIKE IBUPROFEN OR ALEVE. ADVISED TO USE HEAT X20 MINUTES 3 TIMES A DAY AND [id number] BENGAY OR PAIN CREAM TWICE A DAY. KEEP SCHEDULED APPOINTMENT FOR RIGHT SHOULDER PAIN AFTER FALL INJURY NEXT WEEK WITH ORTHOPEDICS. PROCEDURE CODES FA211 ESTABILISHED PATIENT [facility] CHARGE DISPOSITION & COMMUNICATION FOLLOW UP 6 WEEKS (REASON: LOW BACK PAIN/ACUTE/MED FOLLOW-UP) ELECTRONICALLY SIGNED BY KENDALL ROY ON 01/18/2020 AT 10:45 AM EST DISCLAIMER : THIS IS A VISIT SUMMARY EXTRACTED FROM THE [employer] CHART. IT IS NOT A COPY OF THE [employer] PROGRESS NOTE. ALEXANDRA
== END ==
LOC: M PAIN 13:45
PROVIDERS: ATTEND Nurse Practitioner Family
DX: G89.11 Acute pain due to trauma (principal); M54.5 Low back pain; E03.9 Hypothyroidism, unspecified; J45.20 Mild intermittent asthma, uncomplicated; R73.01 Impaired fasting glucose; E55.9 Vitamin D deficiency, unspecified; F25.0 Schizoaffective disorder, bipolar type; E66.01 Morbid (severe) obesity due to excess calories; Z79.1 Long term (current) use of non-steroidal anti-inflammatories (NSAID); Z79.899 Other long term (current) drug therapy; Z68.43 Body mass index [BMI] 50.0-59.9, adult

== ENCOUNTER → 2020-03-06 | Outpatient (CLI) | payer OTHER, MEDICAID ==
--- NOTE | 2020-03-10 23:13 | ECWPNPC ---
PATIENT NAME: LUZMARIA FUNES : 1955 GENDER: FEMALE VISIT DATE: 03/06/2020 DISCHARGE DATE: 03/06/20 1427 VISIT LOCKED DATE TIME: PHYSICIAN: GABRIELLA YUAN PHYSICIAN PAGER NO: ACTIVE RESOURCE: GABRIELLA YUAN REASON FOR APPOINTMENT 1. LOW BACK PAIN/ACUTE/MED FOLLOW-UP HISTORY OF PRESENT ILLNESS PAIN CENTER INTAKE QUESTIONS: DO YOU HAVE A HISTORY OF MRSA? :NO DO YOU TAKE A BLOOD THINNERS? :NO DO YOU HAVE ANY BLEEDING DISORDERS? :NO ANY NEW NUMBNESS OR WEAKNESS IN YOUR LEGS OR ARMS? :NO ANY PACEMAKER,DEFIBRILLATOR, OR DORSAL COLUMN STIMULATOR? :NO DO YOU HAVE ANY RASHES OR OPEN SORES? :NO ARE YOU ALLERGIC TO IV DYE? :NO ARE YOU DIABETIC? :NO ANY NEW PROBLEMS WITH YOUR MEDICATIONS? :NO HAVE YOU RECEIVED A VACCINE IN THE PAST 30 DAYS? :NO DO YOU PLAN TO RECEIVE A VACCINE IN THE NEXT 21 DAYS? :NO DO YOU NEED ANY PRESCRIPTION? :NO DO YOU TAKE ANY IMMUNOSUPPRESSIVE MEDICATIONS? :NO IS THERE A CHANCE YOU COULD BE ? :NO ARE YOU BREAST FEEDING? :NO GENERAL: HERE FOR FOLLOW-UP OF CHRONIC LOW BACK PAIN. AT HER LAST VISIT WE STOPPED MOBIC AND STARTED ARTHROTEC 50 MG 3 TIMES A DAY SHE WAS EXPERIENCING INCREASES IN HER LOWER BACK PAIN. PATIENT IS A POOR HISTORIAN. HISTORY OF DEMENTIA. DOES REPORT THAT PAIN IS DOING OKAY WITH CURRENT MEDICATIONS. DENIES ADVERSE SIDE EFFECTS. -. FALL RISK SCREENING: SCREENING :TWO OR MORE FALLS WITHOUT INJURY IN THE PAST YEAR PAIN SCREENING: PATIENT HAS A COMPLAINT OF ACUTE OR CHRONIC PAIN :YES LOCATION OF PAIN:LOW BACK BOTH SIDES WHAT DOES YOUR PAIN FEEL LIKE:INTERMITTENT, TENDER PAIN IS INCREASED BY:OTHERS VERY VAGUE AND NOT ABLE TO DESCRIBE NURSING NOTE: -. CURRENT MEDICATIONS TAKING EFFEXOR XR 150 MG CAPSULE EXTENDED RELEASE 24 HOUR 225MG-1 CAPSULE WITH FOOD ORALLY ONCE A DAY TAKING RISPERIDONE 1 MG TABLET 1 TABLET ORALLY 1MG AM 2MG HS TAKING DONEPEZIL HCL 10 MG TABLET 1 TABLET AT BEDTIME ORALLY ONCE A DAY TAKING BENZTROPINE MESYLATE 0.5 MG TABLET TAKE ONE TABLET BY MOUTH @8AM AND TAKE ONE TABLET @8PM ORAL TAKING CALCIUM 500 MG TABLET 1 TABLET WITH MEALS ORALLY DAILY TAKING RISPERIDONE 2 MG TABLET 1 TABLET ORALLY ONCE A DAY TAKING LEVOTHYROXINE SODIUM 50 MCG TABLET 1 TABLET ON AN EMPTY STOMACH IN THE MORNING ORALLY ONCE A DAY TAKING CLONAZEPAM 1 MG TABLET (SCHEDULE IV DRUG) TAKE ONE TABLET BY MOUTH TWICE DAILY AND EVERY FOUR HOURS NEEDED FOR ANXIETY MAX DAILY DOSE THREE TABLETS ORAL TAKING TRAZODONE HCL 50 MG TABLET 1/2 (25MG) TABLET AT BEDTIME NEEDED ORALLY ONCE A DAY HS TAKING TIZANIDINE HCL 2 MG TABLET 1 TABLET ORALLY TAKE 1 AT MIDDAY AND 1 TAB AT BEDTIME TAKING LISINOPRIL 20 MG TABLET 1 TABLET ORALLY ONCE A DAY TAKING DICLOFENAC SODIUM 50 MG TABLET DELAYED RELEASE 1 TABLET ORALLY TWICE A DAY NOT-TAKING RAMELTEON 8 MG TABLET 1 TABLET AT BEDTIME NEEDED ORALLY ONCE A DAY NOT-TAKING KLONOPIN 1 MG TABLET 1 TABLET ORALLY BID NOT-TAKING PALIPERIDONE PALMITATE 234 MG/1.5ML SUSPENSION 1.5 ML INTRAMUSCULAR , NOTES: PER PT [id number] NOT-TAKING BIOFREEZE ROLL-ON 4 % GEL 1 APPLICATION TO AFFECTED AREA NEEDED EXTERNALLY ONCE A DAY NOT-TAKING MULTIVITAMIN ADULTS - TABLET ORALLY DAILY NOT-TAKING LACTULOSE 10 GM/15ML SOLUTION TAKE 15 MILLILITERS BY MOUTH TWO TO THREE TIMES DAILY FOR CONSTIPATION ORAL NOT-TAKING VITAMIN D3 50 MCG (2000 UT) CAPSULE TAKE ONE CAPSULE BY MOUTH @8AM NOT-TAKING COGENTIN 0.5 MG 1 TAB(S) 2 TIMES A DAY NOT-TAKING ROZEREM 8 MG 1 TABLET AT BEDTIME NEEDED NOT-TAKING INVEGA TRINZA 819 MG/2.625ML SUSPENSION PREFILLED SYRINGE INJECT ONE SYRINGE INTRAMUSCULARLY FOR A SINGLE DOSE INTRAMUSCULAR NOT-TAKING BENEFIBER - POWDER ORALLY NOT-TAKING STOOL SOFTENER 100 MG CAPSULE 1 CAPSULE NEEDED ORALLY ONCE A DAY NOT-TAKING VITAMIN D 2000 UNIT CAPSULE 1 CAPSULE ORALLY ONCE A DAY NOT-TAKING VENLAFAXINE HCL ER 150 MG CAPSULE EXTENDED RELEASE 24 HOUR TAKE TWO CAPSULES BY MOUTH @8AM ORAL , NOTES: DUPLICATE NOT-TAKING RISPERIDONE 1 MG TABLET TAKE ONE TABLET BY MOUTH @8AM ORAL , NOTES: DUPLICATE NOT-TAKING DONEPEZIL HCL 10 MG TABLET TAKE ONE TABLET BY MOUTH @8PM ORAL , NOTES: DUPLICATE NOT-TAKING ROZEREM 8 MG TABLET TAKE ONE TABLET BY MOUTH @8PM ORAL , NOTES: DUPLICATE MEDICATION LIST REVIEWED AND RECONCILED WITH THE PATIENT PAST MEDICAL HISTORY HYPOTHYROIDISM MYOPIC ASTIGMATISM CALCANEAL SPURS ASTHMA, MILD INTERMITTENT IFG OSTEOPENIA, DEXA 01/18, T SCORE -2, AT SPINE, OSTEOPOROSIS ON DEXA 2014 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 RALOXIFENE COMPLETED SCHIZOAFFECTIVE D/O WITH BIPOLAR FEATURES 11/15 EKG NEG PN 11/18 MORBID OBESITY MEMORY IMPAIRMENT, NEG WORK UP 06/18. XR LS SPINE 04/21 MILD SCOLIOSISCONVEX L/ BILATERAL L5 SPONDYLOLYSIS WITH GRADE 2 SPODYLOLITHESIS/ADV L5-S1 DDD/MOD T12-L1 DDD JOSEPH 09/18 FEV1 2.19 MRI LSPINE 12/19 - DIFFUSE DISC BULGE AT L4-5, L5-S1 WITH MIN THECAL SAC COMPRESSION, GRADE 2 SPONDYLOLITHESIS OF L5 ON S1 WITH ASSOC L5 PARS DEFECT, THERE IS COMPRESSION OF THE L5 NERVES IN THE NEURAL FORAMINA. SIADH: SECONDARY TO MEDICATIONS AND EXCESSIVE WATER INTAKE COLONOSCOPY 26/06/2017: NORMAL, NO SPECIMENS COLLECTED NEUROCOGNITIVE IMPAIRMENT COMMINUTED ACROMIUM FRACTURE R SHOULDER-11/2019 ALLERGIES N.K.D.A. SURGICAL HISTORY L BREAST BX 11/04/09 L BREAST LUMPECTOMY--DCIS 11/27/09 COLONOSCOPY: POLYPS WITHOUT ADENOMATOUS OR HYPERPLASTIC FEATURES; REPEAT 10 YEARS 2012 FAMILY HISTORY FATHER: 99 YRS, DEMENTIA, DIAGNOSED WITH HYPERTENSION MOTHER: 88 YRS SIBLINGS: ALIVE, SISTER FEMALE CANCER UNKNOWN PATERNAL GRAND FATHER: PATERNAL GRAND MOTHER: MATERNAL GRAND FATHER: MATERNAL GRAND MOTHER: 1 BROTHER(S) , 3 SISTER(S) - HEALTHY. HOSPITALIZATION/MAJOR DIAGNOSTIC PROCEDURE [facility]- SCHIZOAFFECTIVE D/O 01/19 [facility] [place] 06/2017 REVIEW OF SYSTEMS CONSTITUTIONAL: ANY RECENT FEVER NO . CHILLS NO . WEIGHT CHANGE OF UNKNOWN REASONS NO . GASTROENTEROLOGY: NEW UNEXPLAINABLE CHANGES IN BOWEL CONTROL NO . CONSTIPATION NO . GENITOURINARY: ANY NEW CHANGE IN BLADDER CONTROL? NO . NEUROLOGY: NEW ONSET DIZZINESS OR NEUROLOGICAL CHANGES NOT MENTIONED NO . NEW NUMBNESS OR PAIN PATTERNS NOT MENTIONED AND PERTINENT TO TODAY'S VISIT NO . CARDIOLOGY: NEW CHEST PRESSURE NO . NEW CHEST PAIN NO . RESPIRATORY: UNEXPLAINABLE COUGH NO . NEW SHORTNESS OF BREATH NO . VITAL SIGNS WT 172.4 LBS, HT 56.25 IN, BMI 38.30 INDEX, BP 138/86 MM HG, HR 102 /MIN, RR 18 /MIN, TEMP 98.1 F, OXYGEN SAT % 98%, SAFE IN ENV? (Y/N) YES, NA INITIALS OR 13:22, REVIEWED BY: KG. EXAMINATION GENERAL EXAMINATION: GENERALAWAKE,ALERT ,PLEASANT . PSYCHAFFECT NORMAL . LUNGS:LUNG EAST ARE CLEAR TO AUSCULTATION BILATERALLY. GOOD MOVEMENT OF AIR . HEART:S1, S2 IN A REGULAR RATE AND RHYTHM. NO SIGNIFICANT MURMURS, RUBS OR GALLOPS NOTED . ASSESSMENTS OTHER CHRONIC PAIN - G89.29 (PRIMARY) TREATMENT OTHER CHRONIC PAIN NOTES: ADVISED TO CONTINUE ARTHROTEC 50 MG TWICE A DAY. CONTINUE TIZANIDINE 2 MG NEEDED FOR SEVERE PAIN EPISODES. PATIENT STATES THAT PHARMACY PREPARES HER MEDICATIONS IN PILL PACKS. THEY WILL ALERT US WITH ANY NEED FOR REFILLS. FOLLOW-UP WILL BE SCHEDULED IN 3 MONTHS. PROCEDURE CODES FA211 ESTABILISHED PATIENT [facility] CHARGE DISPOSITION & COMMUNICATION FOLLOW UP 3 MONTHS (REASON: MEDICATION MANAGEMENT/LOW BACK PAIN/FOR HISTORIAN/DEMENTIA) ELECTRONICALLY SIGNED BY KENDALL ROY ON 03/10/2020 AT 03:55 PM EST DISCLAIMER : THIS IS A VISIT SUMMARY EXTRACTED FROM THE [employer] CHART. IT IS NOT A COPY OF THE [employer] PROGRESS NOTE. ALEXANDRA
== END ==
LOC: M PAIN 13:30
PROVIDERS: ATTEND Nurse Practitioner Family
DX: G89.29 Other chronic pain (principal); E03.9 Hypothyroidism, unspecified; J45.20 Mild intermittent asthma, uncomplicated; R73.01 Impaired fasting glucose; Z86.59 Personal history of other mental and behavioral disorders; Z79.899 Other long term (current) drug therapy

== ENCOUNTER → 2020-04-19 | Outpatient (CLI) | payer OTHER, MEDICAID, MEDICARE ==
[~2020-04-19] MED LIST changes: -LISI-538 PO; +LISI20TA33 PO
--- NOTE | 2020-04-19 13:40 | REPPI ---
INDICATION: W19.XXXA FALL INITIAL ENCOUNTER. COMPARISON: None. TECHNIQUE: Two views right hip. FINDINGS: There is no evidence of acute fracture, dislocation or intrinsic bone disease. IMPRESSION: No evidence of acute fracture or dislocation. <Electronically signed by Howard Kee > 04/19/20 [id number]
--- NOTE | 2020-04-19 13:42 | REPPI ---
INDICATION: W19.XXXA FALL INITIAL ENCOUNTER. COMPARISON: Comparison shoulder views are from 29 September 2019.. TECHNIQUE: Three views of the right shoulder are provided. No distal clavicle fracture is seen. There is diffuse osteopenia. FINDINGS: There is fragmented sclerotic change at the margins of the glenoid consistent with superior inferior glenoid chip fractures, likely not healed. Sclerosis secondary to glenohumeral osteoarthritis is seen. The previously noted fracture of the acromion process and scapular spine junction is ununited and the acromion process is depressed and the fracture is somewhat diastatic. The acromioclavicular joint is not not displaced. IMPRESSION: A nonunited acromion process fracture is again seen. There is sclerosis due to osteoarthritis at the glenohumeral articulation. Glenoid chip fractures suspected. No new fracture is appreciated. <Electronically signed by Tod Caraballo > 04/19/20 [id number]
--- NOTE | 2020-04-19 13:44 | REPPI ---
INDICATION: W19.XXXA FALL INITIAL ENCOUNTER. COMPARISON: Comparison shoulder study September 29, 2019.. TECHNIQUE: AP and lateral views of the right humerus FINDINGS: Two views of the right humerus demonstrate diffuse osteopenia.. Nonunited acromion process fracture of the scapula. There is extensive sclerosis on both sides of the glenohumeral articulation and I cannot exclude avascular necrosis in the humeral head. There appear to be regular spurs along the surface of the glenoid. No acute fracture is seen.. No opaque foreign body noted. IMPRESSION: Ununited acromion process fracture. Osteoporosis. Glenohumeral osteoarthritis. Extensive sclerosis in the humeral head. Cannot rule out avascular necrosis. No acute fracture is seen.. <Electronically signed by Tod Caraballo > 04/19/20 [id number]
== END ==
LOC: M PLAIMG 12:02
PROVIDERS: ATTEND Physician Assistant
DX: M84.411A Pathological fracture, right shoulder, initial encounter for fracture (principal); W19.XXXA Unspecified fall, initial encounter; M19.011 Primary osteoarthritis, right shoulder; Y92.9 Unspecified place or not applicable; Y99.9 Unspecified external cause status
CPT/HCPCS: 73030; 73060; 73502; G0463

== ENCOUNTER → 2020-05-10 | Outpatient (CLI) | payer OTHER, MEDICAID ==
--- NOTE | 2020-05-10 14:55 | REP ---
INDICATION: DISP FX OF ACROMIAL PRO RT SHOULDER. COMPARISON: Radiographs 04/19/2020, CT 11/20/2019. TECHNIQUE/RADIOTRACER AND DOSE: Following the intravenous administration of 22 mCi technetium 99 M MDP, patient's shoulders are imaged in the flow phase, immediate blood pool and delayed phases of imaging. FINDINGS: I do not see evidence of asymmetric blood flow to either shoulder region. There does appear to be mild increased blood pooling in the region of the right acromion. The delayed phase images show increased uptake in the right humeral head and adjacent glenoid and acromion. There appears to be increased uptake at the right elbow joint. IMPRESSION: Delayed increased uptake in the right humeral head and glenoid I suspect is due to significant arthritic changes as seen on prior studies. Increased radiotracer uptake in the blood pool and delayed phases of imaging in the region of the right acromion may be due to incomplete healing. Mildly increased uptake at the right elbow joint is nonspecific. <Electronically signed by Howard Kee > 05/10/20 [id number]
== END ==
LOC: M RAD 10:24
PROVIDERS: ATTEND Physician Assistant
DX: S42.121D Displaced fracture of acromial process, right shoulder, subsequent encounter for fracture with routine healing (principal); W18.30XD Fall on same level, unspecified, subsequent encounter; Y92.009 Unspecified place in unspecified non-institutional (private) residence as the place of occurrence of the external cause
CPT/HCPCS: 78315; A9503

== ENCOUNTER 2020-05-21 13:25 | Emergency (ER) | payer OTHER, MEDICAID ==
[~2020-05-21] VITALS: Ht 139.7 cm; Wt 77.3 kg
[2020-05-21] MEDS ORDERED: CLON1TAB8 PO (14:53)
[2020-05-21 14:54] LABS: HEMATOCRIT 35.4 % (36.0-47.0); HEMOGLOBIN 12.3 g/dl (12.0-15.5); MEAN CORPUSCULAR HEMOGLOBIN 30.6 pg (27.0-33.0); MEAN CORPUSCULAR HGB CONC 34.7 g/dl (32.0-36.5); MEAN CORPUSCULAR VOLUME 88.1 fl (80.0-96.0); PLATELET COUNT, AUTOMATED 308 10^3/uL (150-450); RED BLOOD COUNT 4.02 10^6/uL (4.00-5.40); WHITE BLOOD COUNT 10.5 10^3/uL (4.0-10.0)
[2020-05-21 15:30] LABS: ACETAMINOPHEN LEVEL < 2.0 UG/ML (10.0-30.0); ALBUMIN 4.6 GM/DL (3.2-5.2); ALT/SGPT 31 U/L (12-78); BILIRUBIN,DIRECT 0.1 MG/DL (0.0-0.2); BILIRUBIN,TOTAL 0.4 MG/DL (0.2-1.0); BLOOD UREA NITROGEN 8 MG/DL (7-18); CALCIUM LEVEL 9.5 MG/DL (8.8-10.2); CARBON DIOXIDE LEVEL 25 MEQ/L (21-32); CHLORIDE LEVEL 93 MEQ/L (98-107); CREATININE FOR GFR 0.71 MG/DL (0.55-1.30); ETHYL ALCOHOL (ETHANOL) < 0.003 % (0.000-0.010); GLOMERULAR FILTRATION RATE > 60.0 (>45); GLUCOSE, FASTING 95 MG/DL (70-100); POTASSIUM SERUM 4.1 MEQ/L (3.5-5.1); SALICYLATE LEVEL < 1.7 MG/DL (5.0-30.0); SODIUM LEVEL 128 MEQ/L (136-145)
[2020-05-21 15:33] LABS: AMPHETAMINES LEVEL URINE NEGATIVE (NEGATIVE); BARBITURATES URINE NEGATIVE (NEGATIVE); BENZODIAZEPINES URINE NEGATIVE (NEGATIVE); CANNABINOIDS URINE NEGATIVE (NEGATIVE); COCAINE METABOLITE URINE NEGATIVE (NEGATIVE); METHADONE URINE NEGATIVE (NEGATIVE); OPIATES URINE NEGATIVE (NEGATIVE); PHENCYCLIDINE URINE NEGATIVE (NEGATIVE)
[2020-05-21] MEDS ORDERED: BLOOD TEST (18:13)
[2020-05-21 18:25] VITALS: BP 151/90
== END 2020-05-21 18:27 | disposition home or self-care (01) ==
LOC: M ED 13:25
DX: F43.0 Acute stress reaction (principal); E87.1 Hypo-osmolality and hyponatremia; Z79.899 Other long term (current) drug therapy

== ENCOUNTER 2020-05-31 13:28 | Inpatient (IN) | payer OTHER, MEDICAID ==
[~2020-05-31] VITALS: Ht 144.8 cm; Wt 68.5 kg
[~2020-05-31 13:28] MED LIST changes: +BLOOD TEST
[2020-05-31 13:54] LABS: BASO % 0.4 % (0.0-1.0); EOS # 0.1 10^3/uL (0.0-0.5); EOS % 0.7 % (0.0-3.0); HEMATOCRIT 37.3 % (36.0-47.0); LYMPH # 1.1 10^3/uL (1.5-5.0); LYMPH % 15.4 % (24.0-44.0); MEAN CORPUSCULAR HEMOGLOBIN 31.6 pg (27.0-33.0); MEAN CORPUSCULAR HGB CONC 34.9 g/dl (32.0-36.5); MEAN CORPUSCULAR VOLUME 90.5 fl (80.0-96.0); MONO # 0.6 10^3/uL (0.0-0.8); MONO % 8.8 % (2.0-8.0); NEUTROPHILS # 5.1 10^3/uL (1.5-8.5); NEUTROPHILS % 74.6 % (36.0-66.0); PLATELET COUNT, AUTOMATED 298 10^3/uL (150-450); RED BLOOD COUNT 4.12 10^6/uL (4.00-5.40); WHITE BLOOD COUNT 6.8 10^3/uL (4.0-10.0)
--- NOTE | 2020-05-31 13:59 | REP ---
INDICATION: AMS. COMPARISON: Comparison CT study June 15, 2017.. TECHNIQUE: Helical scanning is acquired. 5 mm axial images were reformatted. Coronal MPR images were generated. FINDINGS: Bone window settings demonstrate an intact bony calvarium. There is no evidence of skull fracture or incidental bony calvarial lesion. There is opacification of 1 or 2 of the right posterior ethmoid air cells again noted unchanged from the 2018 study. Paranasal sinuses are otherwise clear. No intraorbital abnormality is seen. On soft tissue window setting images; the lateral, third, and fourth ventricles are normal in size and position. Kee-white differentiation pattern is normal above and below the tentorium. There are is no evidence of intracranial hemorrhage. No mass, edema, infarction, or midline shift is seen. No extra-axial fluid collection is appreciated. IMPRESSION: Right posterior ethmoid sinus opacification again seen. Otherwise negative noncontrast head CT. <Electronically signed by Tod Caraballo > 05/31/20 [id number]
[2020-05-31] MEDS ORDERED: NS 1,000 ML IV ONE (14:00)
--- NOTE | 2020-05-31 14:01 | REP ---
INDICATION: Altered Mental Status. COMPARISON: Comparison chest x-ray January 24, 2014. TECHNIQUE: Portable upright AP chest radiograph. FINDINGS: The lungs are well inflated and free of infiltrate. Pleural angles are sharp. Heart size is normal. Pulmonary vasculature is not increased. EKG monitoring electrodes are seen overlying the chest. There appear to be old posttraumatic changes at the right glenohumeral and acromioclavicular joints. IMPRESSION: No active disease. <Electronically signed by Tod Caraballo > 05/31/20 [id number]
[2020-05-31 14:29] LABS: OSMOLALITY SERUM 265 MOSM/KG (280-301)
[2020-05-31 14:36] LABS: ALBUMIN 3.9 GM/DL (3.2-5.2); ALT/SGPT 32 U/L (12-78); BILIRUBIN,DIRECT 0.1 MG/DL (0.0-0.2); BILIRUBIN,TOTAL 0.3 MG/DL (0.2-1.0); BLOOD UREA NITROGEN 8 MG/DL (7-18); CALCIUM LEVEL 9.2 MG/DL (8.8-10.2); CARBON DIOXIDE LEVEL 28 MEQ/L (21-32); CHLORIDE LEVEL 96 MEQ/L (98-107); CK-MB VALUE MASS 3.3 NG/ML (<3.6); CPK CREATINE PHOSPHOKINASE 189 U/L (26-192); CREATININE FOR GFR 0.92 MG/DL (0.55-1.30); GLOMERULAR FILTRATION RATE > 60.0 (>45); GLUCOSE, FASTING 94 MG/DL (70-100); MB/CK RELATIVE INDEX 1.75 (< OR =4); POTASSIUM SERUM 4.5 MEQ/L (3.5-5.1); SODIUM LEVEL 130 MEQ/L (136-145); TOTAL PROTEIN 6.3 GM/DL (6.4-8.2); TROPONIN I < 0.02 NG/ML (< 0.10)
[2020-05-31] MEDS ORDERED: KLON1TAB PO (16:12)
[2020-05-31 17:08] LABS: RSV AMPLIFICATION NEGATIVE (NEGATIVE)
[2020-05-31] MEDS ORDERED: BENZ0.5T23 PO (19:19)
[2020-05-31] MEDS ORDERED: D3 S20002 PO (19:24)
[2020-05-31] MEDS ORDERED: TIZA1TAB12 PO (19:24)
[2020-05-31] MEDS ORDERED: TRAZ1TAB10 PO (19:24)
[2020-05-31] MEDS ORDERED: DONE10TA90 PO (19:24)
[2020-05-31] MEDS ORDERED: RISP-8 PO (19:26)
[2020-05-31] MEDS ORDERED: RISP-9 PO (19:26)
[2020-05-31] MEDS ORDERED: med rec comment (19:28)
[2020-05-31 19:31] LABS: ETHYL ALCOHOL (ETHANOL) < 0.003 % (0.000-0.010)
--- NOTE | 2020-05-31 19:51 | HPEPDOC ---
General Date of Admission May 31, 2020 at 18:49 Date of Service: May 31, 2020 Chief Complaint The patient is a 64-year-old female admitted with a reason for visit of Encephalopathy,Fall,Syncope. Source: RN/MD Exam Limitations: Other (Confusion/AMS) History of Present Illness Mrs. Felix is a 64 year old female with schizoaffective disorder, bipolar, and Alzheimer's disease who presents with confusion and syncope. Patient is a poor historian and does not remember what happened at home. She remembers feeling lightheaded, then falling. She does not remember how she fell or the circumstances of the fall. She realized that she was confused and that she should come to the ED. When she first came into the ED, she was hypotensive at 76/50. Otherwise no fever, tachycardia, or tachypnea. No leukocytosis. She was hyponatremic, but at baseline around 130. She was given 1L of NS and now is hypertensive. CT head was negative for acute changes. UA negative for UTI. When I saw the patient, she was very confused. She remember taking pills from [facility] and feeling lightheaded. She reports diarrhea and a little bit of shortness of breath but no other complaints. I tried to reach out to her sister, Shira Bernardo, but was not able to reach her personal property assessor. Patient will be admitted for syncope and encephalopathy. Home Medications Scheduled Benztropine Mesylate (Benztropine Mesylate) 0.5 Mg Tab, 0.5 MG PO BID for SEE LABEL COMMENTS Calcium Carbonate (Calcium Carbonate) 500 Mg Tab, Unknown Dose PO DAILY for nutritional supplement, (Reported) Cholecalciferol (Vitamin D3) 2,000 Unit Chw, 2,000 UNIT PO DAILY, (Reported) Clonazepam (Klonopin) 1 Mg Tablet, PO BID, (Reported) Donepezil Hcl (Donepezil HCl Odt) 10 Mg Tab, 10 MG PO QHS, (Reported) Levothyroxine Sodium (Synthroid) 50 Mcg Tab, 50 MCG PO DAILY for HYPOTHYROIDISM, (Reported) Lisinopril (Lisinopril) 20 Mg Tab, 20 MG PO DAILY, (Reported) Multivitamins (Thera M Plus Tablet) 1 Tab Tab, 1 TAB PO DAILY for VITAMINS, (Reported) Paliperidone Palmitate (Invega Sustenna) 234 Mg/1.5 Ml Inj, 234 MG IM [id number], (Reported) Raloxifene HCl (Raloxifene HCl) 60 Mg Tab, 60 MG PO DAILY for OSTEOPOROSIS, (Reported) Ramelteon (Rozerem) 8 Mg Tab, 8 MG PO QHS for SLEEP Risperidone (Risperdal) 2 Mg Tab, 2 MG PO QHS for SEE LABEL COMMENTS Risperidone (Risperdal) 1 Mg Tab, 1 MG PO QHS for SEE LABEL COMMENTS Trazodone HCl (Trazodone HCl) 50 Mg Tab, 25 MG PO QHS for SLEEP Scheduled PRN Ibuprofen (Ibuprofen) 600 Mg Tab, 600 MG PO Q6H PRN for PAIN, (Reported) Tizanidine HCl (Tizanidine HCl) 2 Mg Tab, 2 MG PO BID PRN for MUSCLE SPASMS TAKES AROUND MIDDAY AND AT BEDTIME Miscellaneous Medications Clonazepam (Clonazepam) 1 Mg Tablet, (Reported) Allergies Coded Allergies: No Known Allergies (Verified , 01/25/18) Past Medical History Medical History 1. Hypothyroidism 2. Asthma 3. Osteoporosis 4. Vitamin D deficiency 5. Ductal carcinoma in situ (no chemotherapy or radiation, had raloxifene) 6. Schizoaffective disorder 7. Bipolar 8. Alzheimer's disease 9. Spondylolysis with grade 2 spondylolisthesis 10. 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 Left breast biopsy and lumpectomy Family History Father: at 99 years old. History of dementia and hypertension Mother: at 88 years old Social History * Smoker: non-smoker (per chart review ) Alcohol: Denies (per chart review) A-FIB/CHADSVASC A-FIB History Current/History of A-Fib/PAF?: No Review of Systems Constitutional: Denies: Fever Eyes: Denies: Pain ENT: Denies: Sore Throat Skin: Denies: Rash Pulmonary: Reports: Dyspnea (mild); Denies: Cough Cardiovascular: Reports: Lt Headedness; Denies: Chest Pain Gastrointestinal: Reports: Diarrhea (mild); Denies: Abdominal Pain Genitourinary: Denies: Dysuria Hematologic: Denies: Bruising Neurological: Reports: Numbness (of her feet which occurs on and off) Psych: Reports: Memory Issues Physical Examination General Exam: Positive: Mild Distress, Other (confused) Eye Exam: Positive: EOMI; Negative: Sclera icteric ENT Exam: Positive: Atraumatic Neck Exam: Positive: Supple Chest Exam: Positive: Clear to auscultation Heart Exam: Positive: Rate Normal, Regular Rhythm Abdomen Exam: Positive: Normal bowel sounds, Soft; Negative: Tenderness Extremity Exam: Positive: Edema (mild) Neuro Exam: Positive: Cranial Nerves 3-12 NL Psych Exam: Negative: Mental status NL, Memory Intact Vital Signs Vital Signs Date Time Temp Pulse Resp B/P (MAP) Pulse Ox O2 Delivery O2 Flow Rate FiO2 05/31/20 18:30 84 16 168/88 (114) 100 Room Air 05/31/20 13:35 98.6 Laboratory Data Labs 24H Laboratory Tests 2 05/31/20 13:33: Immature Granulocyte % (Auto) 0.1, Neutrophils (%) (Auto) 74.6H, Lymphocytes (%) (Auto) 15.4L, Monocytes (%) (Auto) 8.8H, Eosinophils (%) (Auto) 0.7, Basophils (%) (Auto) 0.4, Neutrophils # (Auto) 5.1, Lymphocytes # (Auto) 1.1L, Monocytes # (Auto) 0.6, Eosinophils # (Auto) 0.1, Basophils # (Auto) 0.0, Nucleated Red Blood Cells % (auto) 0.0, Anion Gap 6L, Glomerular Filtration Rate > 60.0, Osmolality 265L, Lactic Acid Level 1.9, Calcium Level 9.2, Total Bilirubin 0.3, Direct Bilirubin 0.1, Aspartate Amino Transf (AST/SGOT) 15, Alanine Aminotransferase (ALT/SGPT) 32, Alkaline Phosphatase 76, Ammonia < 10, Total Creatine Kinase 189, Creatine Kinase MB 3.3, Creatine Kinase MB Relative Index 1.75, Troponin I < 0.02, Total Protein 6.3L, Albumin 3.9, Albumin/Globulin Ratio 1.6, Thyroid Stimulating Hormone (TSH) 2.440 05/31/20 13:37: POC Glucose (Misc Panel) 98, POC Sodium (Misc Panel) 129L, POC Potassium (Misc Panel) 4.4, POC Chloride (Misc Panel) 93L, POC Total CO2 (Misc Panel) 27.0, POC Blood Urea Nitrogen (Misc Panel 8, POC Ionized Calcium (Misc Panel) 4.6, POC Creatinine (Misc Panel) 0.9, POC Hematocrit (Misc Panel) 38.0 05/31/20 15:07: Urine Color STRAW, Urine Appearance CLEAR, Urine pH 7.0, Urine Specific [place] 1.002, Urine Protein NEGATIVE, Urine Glucose (UA) NEGATIVE, Urine Ketones NEGATIVE, Urine Blood NEGATIVE, Urine Nitrite NEGATIVE, Urine Bilirubin NEGATIVE, Urine Urobilinogen 0.2, Urine Leukocyte Esterase NEGATIVE, Urine WBC (Auto) 0, Urine RBC (Auto) 1, Urine Hyaline Casts (Auto) 0, Urine Bacteria (Auto) NEGATIVE, Urine Squamous Epithelial Cells 0, Urine Sperm (Auto) , Coronavirus (COVID-19)(PCR) NEGATIVE, Influenza Type A (RT-PCR) NEGATIVE, Influenza Type B (RT-PCR) NEGATIVE, Respiratory Syncytial Virus (PCR) NEGATIVE CBC/BMP Laboratory Tests 05/31/20 13:33 Microbiology Microbiology 05/31/20 Blood Culture, Received Pending 05/31/20 Blood Culture, Received Pending Assessment/Plan Mrs. Felix is a 64 year old female with schizoaffective disorder, bipolar, and Alzheimer's disease who presents with confusion and syncope. Patient arrived to the ED with hypotension. She may have syncopized from her hypertension. Responded to fluids. Otherwise she is confused. No signs of infection at this time. No acute intracranial abnormality seen on CT head. Possibly secondary to medications. We will hold her psychotropic medications tonight. Plan / VTE VTE Prophylaxis Ordered?: Yes Plan Plan 1. Syncope Patient reports lightheadedness and falls On admission, blood pressure low at 83/43 Responded to fluids We'll monitor overnight on telemetry and obtain an echocardiogram 2. Toxic encephalopathy Confused and does not remember what happened or how long she's been confused CT head negative for acute changes. UA negative for UTI. No leukocytosis. Alcohol level negative We'll check urine tox screen At this time we will hold benztropine, clonazepam, donepezil, Invega, risperidone, tizanidine, and trazodone We'll check an EEG. Supportive care and reorientation 3. Hypertension Continue lisinopril 4. Hyponatremia History of SIADH At baseline. Sodium is 130 5. Hypothyroidism Continue levothyroxine 6. DVT prophylaxis Kadynox HERLINDA NGUYEN DO May 31, 2020 19:51
[2020-05-31 20:50] VITALS: BP 137/69
--- NOTE | 2020-05-31 22:26 | ECGEPIP ---
[facility] - ED Test Date: 2020-05-31 Pat Name: LUZMARIA FUNES Department: Room: - Gender: Female Hand Box Folder: TIFFANY : 1955 Requested By: STEVEN ARGUETA Order Number: [id number] Reading MD: Steven Weir Measurements Intervals [place] Rate: 73 P: 43 IN: 124 QRS: 65 QRSD: 86 T: 50 QT: 408 QTc: 449 Interpretive Statements Normal sinus rhythm Similar to tracing done 06-15-17 Electronically Signed on 05-31-2020 22:25:44 EDT by Steven Weir
[2020-06-01] VITALS: BP 143/68
[2020-06-01 04:00] VITALS: BP 149/89
[2020-06-01 05:38] LABS: HEMATOCRIT 36.1 % (36.0-47.0); HEMOGLOBIN 12.1 g/dl (12.0-15.5); MEAN CORPUSCULAR HEMOGLOBIN 30.3 pg (27.0-33.0); MEAN CORPUSCULAR HGB CONC 33.5 g/dl (32.0-36.5); MEAN CORPUSCULAR VOLUME 90.3 fl (80.0-96.0); PLATELET COUNT, AUTOMATED 281 10^3/uL (150-450); WHITE BLOOD COUNT 6.5 10^3/uL (4.0-10.0)
[2020-06-01 06:02] LABS: BLOOD UREA NITROGEN 6 MG/DL (7-18); CALCIUM LEVEL 8.5 MG/DL (8.8-10.2); CARBON DIOXIDE LEVEL 24 MEQ/L (21-32); CHLORIDE LEVEL 104 MEQ/L (98-107); CREATININE FOR GFR 0.53 MG/DL (0.55-1.30); GLOMERULAR FILTRATION RATE > 60.0 (>45); GLUCOSE, FASTING 78 MG/DL (70-100); MAGNESIUM LEVEL 2.2 MG/DL (1.8-2.4); POTASSIUM SERUM 4.4 MEQ/L (3.5-5.1); SODIUM LEVEL 134 MEQ/L (136-145)
[2020-06-01] MEDS: LEVOTHYROXINE 50MCG TABLET (0.05MG) PO SCH (06:08)
[2020-06-01 07:32] VITALS: BP 124/66
[2020-06-01] MEDS: ENOXAPARIN 40MG/0.4ML SYRINGE (J1650 PER 10MG) SC SCH (09:36)
--- NOTE | 2020-06-01 12:16 | IPNPDOC ---
Subjective Date Seen The patient was seen on 06/01/20. Subjective Chief Complaint/HPI Mrs. Felix is a 64 year old female with schizoaffective disorder, bipolar, and Alzheimer's disease who presents with confusion and syncope. This morning, she looks better, but still does not remember what had happened yesterday. She does not remember how she was a week ago, or when was the last time she was not confused. Denies chest pain or dyspnea. I discussed the case with psychiatry, Dr. Yi, who knows the patient from her outpatient practice. Patient has been having worsening dementia and there are concerns if she has been taking her medications appropriately which is why she was on Invega injection every [address] Yi to have a teleconference with the patient later today. Otherwise recommended involving family and PFS as patient may not be safe to live home alone. Also recommended continuation of the psychiatric medications I was able to reach out to her older sister and HCP Shira Campbellff ([phone]). She is in [place] until July. She is also concerned about patient's dementia and has been trying to look for additional help at home. She has 2 sisters who do visit her at home, but they both work and would not be there constantly. With patient's initial hypotension in the ED (76/50), unsure if she has been eating or drinking well at home. Also, she reports that patient does have poor balance and has been falling frequently. She is supposed to use her walker, but due to her dementia, she may have not been using her walker. Patient will need to have echocardiogram performed for her syncopal event at home and physical therapy to determine if she would benefit from rehab due to her falls. When the full PFS team is here on Wednesday, will try to develop a safe discharge plan home. Patient is appropriate now to be transferred to med/surg. Objective Physical Examination General Exam: Positive: Alert (but has poor memory), Cooperative Eye Exam: Positive: EOMI; Negative: Sclera icteric ENT Exam: Positive: Atraumatic Neck Exam: Positive: Supple Chest Exam: Positive: Clear to auscultation Heart Exam: Positive: Rate Normal, Regular Rhythm Abdomen Exam: Positive: Normal bowel sounds, Soft; Negative: Tenderness Extremity Exam: Positive: Edema (mild) Neuro Exam: Positive: Cranial Nerves 3-12 NL Psych Exam: Negative: Memory Intact Assessment /Plan Assessment Mrs. Felix is a 64 year old female with schizoaffective disorder, bipolar, and Alzheimer's disease who presents with confusion and syncope. Patient arrived to the ED with hypotension which may have caused her syncope. Hypotension responded to fluids. Otherwise she is confused. No signs of infection at this time. No acute intracranial abnormality seen on CT head. Possibly secondary to medications. Discussed with psychiatry and is suspecting it is more from her dementia than her medications. Will restart psychiatric medications, but continue to hold clonazepam. She lives at home independently, but due to the progression of her dementia, she may not be able to live alone anymore. Shira Bernardo ([phone]) is her HCP and oldest sister. She tells me that she has 2 sisters that visit her, but both work. She has been trying to find more resources for patient to be at home, but has not been able to find help. Currently we are pending physical therapy's input as patient has frequent falls and does not remember to use walker. Also pending echocardiogram for syncopal event. Plan/VTE VTE Prophylaxis Ordered?: Yes Plan 1. Syncope Patient reports lightheadedness and falls On admission, blood pressure low at 87/51, 76/50, and 83/43 Responded to fluids Echocardiogram ordered -On telemetry 2. Toxic encephalopathy vs Alzheimer dementia Confused and does not remember what happened or how long she's been confused CT head negative for acute changes. UA negative for UTI. No leukocytosis. Alcohol level negative We'll check urine tox screen At this time we will hold clonazepam and tizanidine Supportive care and reorientation -Psychiatry consulted, recommendations appreciated 3. Hypertension Continue lisinopril 4. Hyponatremia History of SIADH At baseline. Sodium is 130 5. Hypothyroidism Continue levothyroxine 6. Frequent falls // poor balance -HCP and older sister reports that she has poor balance and frequent falls. She is to use her walker, but due to her dementia, she has not remember or does not use it all the time. -Physical therapy 7. Home safety -Patient lives home alone. Due to her poor balance and dementia, she may not be able to live home alone anymore -Contact PFS on Wednesday 8. DVT prophylaxis Lovenox Disposition: Pending physical therapy, echocardiogram, and discussion with PFS VS, I&O, 24H, Fishbone Vital Signs/I&O Vital Signs Date Time Temp Pulse Resp B/P (MAP) Pulse Ox O2 Delivery O2 Flow Rate FiO2 06/01/20 07:32 98.3 82 18 124/66 (85) 98 Room Air I&O- Last 24 Hours up to 6 AM 06/01/20 06:00 Intake Total 1120 ml Output Total 800 ml Balance 320 ml Laboratory Data 24H LABS Laboratory Tests 2 05/31/20 13:33: Immature Granulocyte % (Auto) 0.1, Neutrophils (%) (Auto) 74.6H, Lymphocytes (%) (Auto) 15.4L, Monocytes (%) (Auto) 8.8H, Eosinophils (%) (Auto) 0.7, Basophils (%) (Auto) 0.4, Neutrophils # (Auto) 5.1, Lymphocytes # (Auto) 1.1L, Monocytes # (Auto) 0.6, Eosinophils # (Auto) 0.1, Basophils # (Auto) 0.0, Nucleated Red Blood Cells % (auto) 0.0, Anion Gap 6L, Glomerular Filtration Rate > 60.0, Osmolality 265L, Lactic Acid Level 1.9, Calcium Level 9.2, Total Bilirubin 0.3, Direct Bilirubin 0.1, Aspartate Amino Transf (AST/SGOT) 15, Alanine Aminotransferase (ALT/SGPT) 32, Alkaline Phosphatase 76, Ammonia < 10, Total Creatine Kinase 189, Creatine Kinase MB 3.3, Creatine Kinase MB Relative Index 1.75, Troponin I < 0.02, Total Protein 6.3L, Albumin 3.9, Albumin/Globulin Ratio 1.6, Thyroid Stimulating Hormone (TSH) 2.440, Ethyl Alcohol Level < 0.003 05/31/20 13:37: POC Glucose (Misc Panel) 98, POC Sodium (Misc Panel) 129L, POC Potassium (Misc Panel) 4.4, POC Chloride (Misc Panel) 93L, POC Total CO2 (Misc Panel) 27.0, POC Blood Urea Nitrogen (Misc Panel 8, POC Ionized Calcium (Misc Panel) 4.6, POC Creatinine (Misc Panel) 0.9, POC Hematocrit (Misc Panel) 38.0 05/31/20 15:07: Urine Color STRAW, Urine Appearance CLEAR, Urine pH 7.0, Urine Specific [place] 1.002, Urine Protein NEGATIVE, Urine Glucose (UA) NEGATIVE, Urine Ketones NEGATIVE, Urine Blood NEGATIVE, Urine Nitrite NEGATIVE, Urine Bilirubin NEGATIVE, Urine Urobilinogen 0.2, Urine Leukocyte Esterase NEGATIVE, Urine WBC (Auto) 0, Urine RBC (Auto) 1, Urine Hyaline Casts (Auto) 0, Urine Bacteria (Auto) NEGATIVE, Urine Squamous Epithelial Cells 0, Urine Sperm (Auto) , Coronavirus (COVID-19)(PCR) NEGATIVE, Influenza Type A (RT-PCR) NEGATIVE, Influenza Type B (RT-PCR) NEGATIVE, Respiratory Syncytial Virus (PCR) NEGATIVE 06/01/20 05:17: Nucleated Red Blood Cells % (auto) 0.0, Anion Gap 6L, Glomerular Filtration Rate > 60.0, Calcium Level 8.5L, Magnesium Level 2.2 CBC/BMP Laboratory Tests 05/31/20 13:33 06/01/20 05:17 Microbiology Microbiology 05/31/20 Blood Culture, Received Pending 05/31/20 Blood Culture, Received Pending HERLINDA NGUYEN 27, 2021 12:16
[2020-06-01] MEDS: risperiDONE 1 MG TAB PO SCH (14:11)
[2020-06-01] MEDS: BENZTROPINE 0.5 MG TAB PO SCH ×2 (14:11→20:21)
[2020-06-01 15:00] VITALS: BP 139/98
[2020-06-01] MEDS: traZODone 50 MG TAB PO SCH (20:21)
[2020-06-01] MEDS: DONEPEZIL 5 MG TAB PO SCH (20:21)
[2020-06-01] MEDS: risperiDONE 2 MG TAB PO SCH (20:21)
[2020-06-01 20:47] VITALS: BP 163/87
[2020-06-02] MEDS: LEVOTHYROXINE 50MCG TABLET (0.05MG) PO SCH (05:17)
[2020-06-02 05:18] VITALS: BP 142/94
[2020-06-02 07:07] LABS: HEMOGLOBIN 11.9 g/dl (12.0-15.5); MEAN CORPUSCULAR HEMOGLOBIN 30.4 pg (27.0-33.0); MEAN CORPUSCULAR VOLUME 89.3 fl (80.0-96.0); PLATELET COUNT, AUTOMATED 276 10^3/uL (150-450); RED BLOOD COUNT 3.92 10^6/uL (4.00-5.40); WHITE BLOOD COUNT 8.3 10^3/uL (4.0-10.0)
[2020-06-02 07:35] LABS: BLOOD UREA NITROGEN 4 MG/DL (7-18); CALCIUM LEVEL 8.9 MG/DL (8.8-10.2); CARBON DIOXIDE LEVEL 26 MEQ/L (21-32); CHLORIDE LEVEL 98 MEQ/L (98-107); CREATININE FOR GFR 0.52 MG/DL (0.55-1.30); GLOMERULAR FILTRATION RATE > 60.0 (>45); GLUCOSE, FASTING 98 MG/DL (70-100); POTASSIUM SERUM 3.9 MEQ/L (3.5-5.1); SODIUM LEVEL 131 MEQ/L (136-145)
[2020-06-02] MEDS: risperiDONE 1 MG TAB PO SCH (08:19)
[2020-06-02] MEDS: ENOXAPARIN 40MG/0.4ML SYRINGE (J1650 PER 10MG) SC SCH (08:20)
[2020-06-02] MEDS: BENZTROPINE 0.5 MG TAB PO SCH ×2 (08:20→20:21)
--- NOTE | 2020-06-02 13:14 | REP ---
INDICATION: left ankle lower leg pain, fall. COMPARISON: None. TECHNIQUE: Four views. FINDINGS: Four views of the left ankle demonstrate prominent Achilles and plantar calcaneal spurring. Ankle mortise is intact. No fracture or subluxation is seen. IMPRESSION: No fracture noted. Heel spurring. <Electronically signed by Tod Caraballo > 06/02/20 [id number]
--- NOTE | 2020-06-02 13:17 | REP ---
INDICATION: left ankle lower leg pain, fall. COMPARISON: None. TECHNIQUE: Four views of the left tib fib are provided. FINDINGS: Four views of the left calf demonstrate normal bones, joints, and soft tissues. No fracture or subluxation is seen. No opaque foreign body noted. IMPRESSION: Negative left tib fib series. <Electronically signed by Tod Caraballo > 06/02/20 [id number]
[2020-06-02 14:00] VITALS: BP 163/88
--- NOTE | 2020-06-02 15:04 | IPNPDOC ---
Subjective Date Seen The patient was seen on 06/02/20. Subjective Chief Complaint/HPI Mrs. Felix is a 64 year old female with schizoaffective disorder, bipolar, and Alzheimer's disease who presents with confusion and syncope. Last night patient was confused. Nurse reported that during showering, she was having a 3 person conversation. Also, patient re-introduced herself to the nurse twice. When I saw the patient this morning, she was telling me of left ankle/lower leg pain. She said it started when she started to believe in herself. She did have a fall at home, but images were negative for fracture. Dr. iY had another conference with patient. Patient was still very confused and thought that she made Dr. Yi and the nurses were part of the acceptance committee. Dr. Yi plans to take patient to [facility] when bed available. Otherwise, patient denies chest pain or dyspnea. Objective Physical Examination General Exam: Positive: Cooperative, Other (Very confused) Eye Exam: Positive: EOMI; Negative: Sclera icteric ENT Exam: Positive: Atraumatic Neck Exam: Positive: Supple Chest Exam: Positive: Clear to auscultation Heart Exam: Positive: Rate Normal, Regular Rhythm Abdomen Exam: Positive: Normal bowel sounds, Soft; Negative: Tenderness Extremity Exam: Positive: Edema (mild) Neuro Exam: Positive: Cranial Nerves 3-12 NL Psych Exam: Negative: Memory Intact, Oriented x 3 Assessment /Plan Assessment Mrs. Felix is a 64 year old female with schizoaffective disorder, bipolar, and Alzheimer's disease who presents with confusion and syncope. Patient arrived to the ED with hypotension which may have caused her syncope. Hypotension responded to fluids. Otherwise she is confused. No signs of infection at this time. No acute intracranial abnormality seen on CT head. Possibly secondary to medications. Discussed with psychiatry and psychiatry had conference with patient. Suspecting her confusion and behavior may be more psych related today. Planning to take to [facility] when bed available. Plan/VTE VTE Prophylaxis Ordered?: Yes Plan 1. Syncope Patient reports lightheadedness and falls On admission, blood pressure low at 87/51, 76/50, and 83/43 Responded to fluids Echocardiogram completed 2. Schizoaffective disorder, bipolar type -Patient has bizarre comments today -Due to her Alzheimer's dementia, she may have not been taking her psychiatry medications regularly -Psychiatry consulted, recommendations appreciated -Patient to go to [facility] when bed available 3. Confusion -This may be due to a combination of Alzheimer's dementia and schizoaffective disorder Confused and does not remember what happened or how long she's been confused CT head negative for acute changes. UA negative for UTI. No leukocytosis. Alcohol level negative At this time we will hold clonazepam and tizanidine Supportive care and reorientation 4. Hypertension Continue lisinopril 5. Hyponatremia History of SIADH At baseline. Sodium is 130 6. Hypothyroidism Continue levothyroxine 7. Home safety -Patient lives home alone. Due to her dementia and compliance to psych medi cation, she may not be able to live home alone anymore 8. DVT prophylaxis Lovenox Disposition: Pending placement at [facility] VS, I&O, 24H, Fishbone Vital Signs/I&O Vital Signs Date Time Temp Pulse Resp B/P (MAP) Pulse Ox O2 Delivery O2 Flow Rate FiO2 06/02/20 14:00 99.0 120 20 163/88 (113) 97 Room Air I&O- Last 24 Hours up to 6 AM 06/02/20 06:00 Intake Total 2100 ml Output Total 800 ml Balance 1300 ml Laboratory Data 24H LABS Laboratory Tests 2 06/02/20 06:22: Nucleated Red Blood Cells % (auto) 0.0, Anion Gap 7L, Glomerular Filtration Rate > 60.0, Calcium Level 8.9 CBC/BMP Laboratory Tests 06/02/20 06:22 Microbiology Microbiology 05/31/20 Blood Culture - Preliminary, Resulted No growth after 24 hours . All specim... 05/31/20 Blood Culture - Preliminary, Resulted No Growth after 48 hours. All Specime... HERLINDA NGUYEN 28, 2021 15:04
[2020-06-02 15:38] LABS: GLUCOSE, URINE (UA) MANUAL 1+(100 MG/DL) mg/dL (NEGATIVE)
[2020-06-02 15:39] LABS: BILIRUBIN, URINE MANUAL NEGATIVE (NEGATIVE); KETONE, URINE MANUAL NEGATIVE (NEGATIVE); UROBILINOGEN, URINE MANUAL NORMAL (NORMAL)
[2020-06-02 15:43] LABS: RBC, URINE TNTC /hpf (0-3)
[2020-06-02 15:44] LABS: BACTERIA, URINE MOD AMOUNT; SQUAMOUS EPITHELIAL CELL URINE NONE SEEN /hpf (SMALL AMT)
[2020-06-02 15:47] LABS: HYALINE CAST, URINE NONE SEEN /lpf (0-1)
--- NOTE | 2020-06-02 17:00 | REP ---
INDICATION: UTI with blood, Kidney stone?. COMPARISON: None. TECHNIQUE: Urinary tract sonography. FINDINGS: Scanning of the level of the urinary bladder demonstrates that it is largely empty at the time of scanning. There is some hypoechoic cellular debris or proteinaceous material in the urinary bladder. No bladder stone is seen.. Renal cortical echogenicity pattern is normal bilaterally and contours are smooth. There is no evidence of hydronephrosis, cyst, mass, or calculus in either kidney. The right kidney measures 11.3 x 4.5 x 3.2 cm. Left renal dimensions are 11.2 x 3.8 x 4.5 cm. IMPRESSION: Normal urinary tract sonography. <Electronically signed by Tod Caraballo > 06/02/20 [id number]
[2020-06-02] MEDS: PHENAZOPYRIDINE 100 MG TAB PO SCH ×2 (17:39→20:21)
[2020-06-02] MEDS: cefTRIAXone SOD 1 GM in D5W MINI-BAG PLUS 50 ML IV SCH (17:52)
[2020-06-02] MEDS: traZODone 50 MG TAB PO SCH (20:21)
[2020-06-02] MEDS: DONEPEZIL 5 MG TAB PO SCH (20:21)
[2020-06-02] MEDS: risperiDONE 2 MG TAB PO SCH (20:21)
[2020-06-03] MEDS: LEVOTHYROXINE 50MCG TABLET (0.05MG) PO SCH (05:18)
[2020-06-03 06:00] VITALS: BP 152/88
[2020-06-03 06:56] LABS: HEMATOCRIT 37.4 % (36.0-47.0); HEMOGLOBIN 12.8 g/dl (12.0-15.5); MEAN CORPUSCULAR HEMOGLOBIN 30.8 pg (27.0-33.0); MEAN CORPUSCULAR HGB CONC 34.2 g/dl (32.0-36.5); MEAN CORPUSCULAR VOLUME 90.1 fl (80.0-96.0); PLATELET COUNT, AUTOMATED 285 10^3/uL (150-450); RED BLOOD COUNT 4.15 10^6/uL (4.00-5.40); WHITE BLOOD COUNT 11.6 10^3/uL (4.0-10.0)
[2020-06-03 07:18] LABS: BLOOD UREA NITROGEN 6 MG/DL (7-18); CALCIUM LEVEL 9.5 MG/DL (8.8-10.2); CARBON DIOXIDE LEVEL 28 MEQ/L (21-32); CHLORIDE LEVEL 99 MEQ/L (98-107); CREATININE FOR GFR 0.64 MG/DL (0.55-1.30); GLOMERULAR FILTRATION RATE > 60.0 (>45); GLUCOSE, FASTING 106 MG/DL (70-100); POTASSIUM SERUM 4.2 MEQ/L (3.5-5.1); SODIUM LEVEL 134 MEQ/L (136-145)
[2020-06-03] MEDS: PHENAZOPYRIDINE 100 MG TAB PO SCH ×3 (09:03→20:52)
[2020-06-03] MEDS: BENZTROPINE 0.5 MG TAB PO SCH ×2 (09:03→20:52)
[2020-06-03] MEDS: risperiDONE 1 MG TAB PO SCH (09:03)
--- NOTE | 2020-06-03 10:33 | ECHO ---
DATE OF PROCEDURE: 06/01/2020 Age: 65 Gender: Female Height: 57 inches Weight: 150 REFERRING PHYSICIAN: Sravan Gomez DO INDICATION: Syncope. MEASUREMENTS: 2D Measurements: Aortic root 2.8 cm Left atrium 3.6 cm Intraventricular septum 0.72 cm Posterior wall 0.81 cm Left ventricle diastole 3.3 cm Left ventricle systolic 2.0 cm Doppler Measurements: No aortic stenosis No aortic regurgitation Aortic valve velocity 147 cm/s LVOT velocity 124 cm/s Very mild mitral regurgitation No mitral stenosis Mitral E velocity 48.4 cm/s Mitral A velocity 108 cm/s Mild tricuspid regurgitation No pulmonic regurgitation Pulmonary artery systolic pressure 39 mmHg MITRAL ANNULAR TISSUE DOPPLER E prime septal 7.6 cm/s, E prime lateral 14.5 cm/s DESCRIPTION: Rhythm was sinus tachycardia. This was a moderately technically difficult echocardiogram. This was a 2D, M-mode, color flow Doppler, and pulsed wave Doppler examination including mitral annular tissue Doppler. CONCLUSIONS: 1. Normal left ventricle internal dimensions and wall thickness. Normal regional LV wall motion and wall thickening. LVEF 70% by visual estimate. LV diastolic function could not be adequately determined in the setting of sinus tachycardia. 2. Suggestive of mild elevation of pulmonary artery systolic pressure. Normal right ventricle size and systolic function. 3. No pericardial effusion. 4. Otherwise normal appearing echocardiogram Doppler findings. MTDD
--- NOTE | 2020-06-03 12:43 | IPNPDOC ---
Subjective Date Seen The patient was seen on 06/03/20. Subjective Chief Complaint/HPI Mrs. Felix is a 64 year old female with schizoaffective disorder, bipolar, and Alzheimer's disease who presents with confusion and syncope. On admission, patient was confused and UA was unremarkable. Psychiatry, Dr. Yi evaluated the patient twice. Recommended patient go to [facility]. On 06/02, in the afternoon, she started to have hematuria. UA was sent down and was positive for UTI. Discussed case with Dr. Yi last night. Patient was confused prior to the UTI, so patient would still eventually need to go [facility] when bed available. Otherwise, this morning, Patient was slow to speech. She initially had trouble remembering location, but said [place] after waiting for a while. She did not know year. Otherwise, denies chest pain or dyspnea. Objective Physical Examination General Exam: Positive: Cooperative, Other (Very confused) Eye Exam: Positive: EOMI; Negative: Sclera icteric ENT Exam: Positive: Atraumatic Neck Exam: Positive: Supple Chest Exam: Positive: Clear to auscultation Heart Exam: Positive: Rate Normal, Regular Rhythm Abdomen Exam: Positive: Normal bowel sounds, Soft; Negative: Tenderness Extremity Exam: Positive: Edema (mild) Neuro Exam: Positive: Cranial Nerves 3-12 NL Psych Exam: Negative: Memory Intact, Oriented x 3 Assessment /Plan Assessment Mrs. Felix is a 64 year old female with schizoaffective disorder, bipolar, and Alzheimer's disease who presents with confusion and syncope. Patient arrived to the ED with hypotension which may have caused her syncope. Hypotension responded to fluids. Otherwise, on admission, she was confused. No signs of infection at that time and UA was negative. She was evaluated by Dr. Yi twice who recommended that patient be brought into [facility] when bed is available. After that time, patient developed hematuria and UA is suspicious for UTI on 06/02/2020. Started patient on antibiotics, pending urine culture results. Plan/VTE VTE Prophylaxis Ordered?: Yes Plan 1. Syncope Patient reports lightheadedness and falls On admission, blood pressure low at 87/51, 76/50, and 83/43 Responded to fluids Echocardiogram normal 2. Schizoaffective disorder, bipolar type -Patient has made many bizarre comments -Due to her Alzheimer's dementia, she may have not been taking her psychiatry medications regularly -Psychiatry consulted, recommendations appreciated -Patient to go to [facility] when bed available 3. Confusion -This may be due to a combination of Alzheimer's dementia and schizoaffective disorder Confused and does not remember what happened or how long she's been confused CT head negative for acute changes. Alcohol level negative At this time we will hold clonazepam and tizanidine Supportive care and reorientation 4. UTI -Demonstrated on 06/02/2020 -Occurred after the confusion started -She was confused prior to UTI, will still need to go to [facility] 5. Hypertension Continue lisinopril 6. Hyponatremia History of SIADH At baseline. Sodium is 130 7. Hypothyroidism Continue levothyroxine 8. Home safety -Patient lives home alone. Due to her dementia and compliance to psych medication, she may not be able to live home alone anymore 9. DVT prophylaxis Lovenox Disposition: Pending placement at [facility] VS, I&O, 24H, Fishbone Vital Signs/I&O Vital Signs Date Time Temp Pulse Resp B/P (MAP) Pulse Ox O2 Delivery O2 Flow Rate FiO2 06/03/20 09:06 139/87 06/03/20 06:00 97.9 103 18 98 Room Air I&O- Last 24 Hours up to 6 AM 06/03/20 06:00 Intake Total 1260 ml Output Total 150 ml Balance 1110 ml Laboratory Data 24H LABS Laboratory Tests 2 06/02/20 15:15: Urine Color (DANIEL) REDH, Urine Appearance (DANIEL) CLOUDYH, Urine pH (DANIEL) 7.0, Urine Specific [place] (DANIEL) 1.015, Urine Protein 3+H, Bedside Urine Glucose (UA) 1+(100 MG/DL)H, Bedside Urine Ketones (LAB) NEGATIVE, Bedside Urine Blood POSITIVEH, Bedside Urine Nitrite (LAB) NEGATIVE, Bedside Urine Bilirubin (LAB) NEGATIVE, Bedside Urine Urobilinogen (LAB) NORMAL, Bedside Urine Leukocyte Esterase (L POSITIVEH, Urine Sediment Examination PERFORMED, Urine RBC TNTCH, Urine WBC TNTCH, Urine Squamous Epithelial Cells NONE SEEN, Urine Bacteria MOD AMOUNTH, Urine Hyaline Casts NONE SEEN 06/03/20 06:14: Nucleated Red Blood Cells % (auto) 0.0, Anion Gap 7L, Glomerular Filtration Rate > 60.0, Calcium Level 9.5 CBC/BMP Laboratory Tests 06/03/20 06:14 Microbiology Microbiology 06/02/20 Urine Culture, Received Pending 05/31/20 Blood Culture - Preliminary, Resulted No Growth after 48 hours. All Specime... 05/31/20 Blood Culture - Preliminary, Resulted No Growth after 48 hours. All Specime... HERLINDA NGUYEN DO Jun 03, 2020 12:43
[2020-06-03 14:00] VITALS: BP 100/60
[2020-06-03] MEDS: cefTRIAXone SOD 1 GM in D5W MINI-BAG PLUS 50 ML IV SCH (16:15)
[2020-06-03] MEDS: traZODone 50 MG TAB PO SCH (20:52)
[2020-06-03] MEDS: DONEPEZIL 5 MG TAB PO SCH (20:52)
[2020-06-03] MEDS: risperiDONE 2 MG TAB PO SCH (20:52)
[2020-06-03 22:00] VITALS: BP 124/81
[2020-06-04] MEDS: LEVOTHYROXINE 50MCG TABLET (0.05MG) PO SCH (05:22)
[2020-06-04 06:00] VITALS: BP 122/81
[2020-06-04 07:18] LABS: HEMATOCRIT 36.2 % (36.0-47.0); HEMOGLOBIN 12.5 g/dl (12.0-15.5); MEAN CORPUSCULAR HEMOGLOBIN 31.3 pg (27.0-33.0); MEAN CORPUSCULAR HGB CONC 34.5 g/dl (32.0-36.5); MEAN CORPUSCULAR VOLUME 90.7 fl (80.0-96.0); PLATELET COUNT, AUTOMATED 309 10^3/uL (150-450); RED BLOOD COUNT 3.99 10^6/uL (4.00-5.40); WHITE BLOOD COUNT 9.3 10^3/uL (4.0-10.0)
[2020-06-04 07:42] LABS: BLOOD UREA NITROGEN 9 MG/DL (7-18); CALCIUM LEVEL 8.7 MG/DL (8.8-10.2); CARBON DIOXIDE LEVEL 26 MEQ/L (21-32); CHLORIDE LEVEL 98 MEQ/L (98-107); CREATININE FOR GFR 0.53 MG/DL (0.55-1.30); GLOMERULAR FILTRATION RATE > 60.0 (>45); GLUCOSE, FASTING 104 MG/DL (70-100); POTASSIUM SERUM 4.3 MEQ/L (3.5-5.1); SODIUM LEVEL 133 MEQ/L (136-145)
[2020-06-04 09:09] VITALS: BP 130/90
[2020-06-04] MEDS: risperiDONE 1 MG TAB PO SCH (09:09)
[2020-06-04] MEDS: PHENAZOPYRIDINE 100 MG TAB PO SCH ×3 (09:09→21:24)
[2020-06-04] MEDS: BENZTROPINE 0.5 MG TAB PO SCH ×2 (09:09→21:24)
[2020-06-04] MEDS: ACETAMINOPHEN TAB 650MG DOSE (2X325MG) PO PRN (09:47)
[2020-06-04] MEDS: DOCUSATE SODIUM 100MG CAPSULE PO SCH (11:06)
[2020-06-04 14:00] VITALS: BP 125/79
--- NOTE | 2020-06-04 16:28 | IPNPDOC ---
Text Note Date of Service The patient was seen on 06/04/20. NOTE Subjective: Patient did not answer my questions in the morning, but she was able to communicate with her sister by phone. She is not oriented in place and time Objective: GENERAL APPEARANCE: NAD HEENT: no scleral icterus, no JVD, EOMI CARDIOVASCULAR: S1S2 LUNGS: CTA ABDOMEN: soft & not tender w palpitation MUSCULOSKELETAL: no cyanosis, no swelling INTEGUMENT: no generalized pallor NEUROLOGICAL: cranial nerve function from 2-12 intact intact, speech not dysarthric, essential tremors Assessment/Plan: Patient is a 64 year old female with schizoaffective disorder, bipolar, and Alzheimer's disease who presents with confusion and syncope. Patient arrived to the ED with hypotension which may have caused her syncope. Hypotension responded to fluids. Syncope Most likely secondary to dehydration On admission, blood pressure low at 87/51, 76/50, and 83/43 Responded to fluids Echocardiogram normal Schizoaffective disorder, bipolar type/Alzheimer's dementia Due to her Alzheimer's dementia, she may have not been taking her psychiatry medications regularly Patient to go to [facility] when bed available Acute metabolic encephalopathy Multifactorial secondary to Alzheimer's dementia, polypharmacy and schizoaffective disorder complicated by UTI clonazepam and tizanidine on hold Frequent irritation UTI Continue Bactrim Hypertension Continue lisinopril Hyponatremia Patient has history of SIADH Sodium today 133 Hypothyroidism Continue levothyroxine Deconditioning/home safety Patient lives home alone. 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
[2020-06-04] MEDS ORDERED: BACTRIM 160MG/800MG DS TAB PO SCH (21:00)
[2020-06-04] MEDS: DONEPEZIL 5 MG TAB PO SCH (21:24)
[2020-06-04] MEDS: traZODone 50 MG TAB PO SCH (21:24)
[2020-06-04] MEDS: risperiDONE 2 MG TAB PO SCH (21:26)
[2020-06-04 22:00] VITALS: BP 110/74
[2020-06-05] MEDS: LEVOTHYROXINE 50MCG TABLET (0.05MG) PO SCH (05:04)
[2020-06-05 06:00] VITALS: BP 112/71
[2020-06-05 06:54] LABS: HEMATOCRIT 38.1 % (36.0-47.0); HEMOGLOBIN 12.8 g/dl (12.0-15.5); MEAN CORPUSCULAR HEMOGLOBIN 31.2 pg (27.0-33.0); MEAN CORPUSCULAR HGB CONC 33.6 g/dl (32.0-36.5); MEAN CORPUSCULAR VOLUME 92.9 fl (80.0-96.0); PLATELET COUNT, AUTOMATED 273 10^3/uL (150-450); WHITE BLOOD COUNT 11.2 10^3/uL (4.0-10.0)
[2020-06-05 07:19] LABS: CALCIUM LEVEL 8.8 MG/DL (8.8-10.2); CREATININE FOR GFR 1.32 MG/DL (0.55-1.30); GLOMERULAR FILTRATION RATE 43.4 (>45); POTASSIUM SERUM 4.5 MEQ/L (3.5-5.1)
[2020-06-05] MEDS: DOCUSATE SODIUM 100MG CAPSULE PO SCH ×2 (08:22→09:00)
[2020-06-05] MEDS: BENZTROPINE 0.5 MG TAB PO SCH ×2 (08:24→09:00)
[2020-06-05] MEDS: PHENAZOPYRIDINE 100 MG TAB PO SCH ×3 (08:24→16:49)
[2020-06-05] MEDS: risperiDONE 1 MG TAB PO SCH ×2 (08:25→09:00)
--- NOTE | 2020-06-05 08:30 | EEG ---
ELECTROENCEPHALOGRAM DATE: 06/03/2020 DIAGNOSIS: Altered mental status. EEG# [id number]. REFERRING PHYSICIAN: Sravan Gomez DO HISTORY: Patient is a 64-year-old woman who was admitted at [facility] due to altered mental status. She has a history of schizoaffective disorder, bipolar disorder, and dementia. She had a passing out spell. This EEG was done to rule out epileptic potential. She is currently taking lisinopril, benztropine, donepezil, risperidone, trazodone, etc. TECHNICAL DESCRIPTION: This digital EEG was recorded by 21-scalp, ear, and two EKG electrodes and was reviewed in bipolar and referential montages following reformatting in 10-20 international electrode placement system. INTERPRETATION: Patient was noted to be in awake and drowsy states during this EEG. Resting and awake background rhythm consisted of well-formed posterior dominant rhythm with anterior-posterior gradient comprising of 9.5 Hz alpha activity measuring 15-80 microvolts in amplitude, which was symmetric and reactive to eye opening. Attenuation of posterior dominant rhythm was seen during transition into drowsiness. Stage 1 sleep was reviewed and was symmetric bilaterally. Hyperventilation could not be performed. Photic stimulation remained unremarkable. EKG revealed normal sinus rhythm. No focal, lateralizing, or epileptiform abnormalities were seen. No relevant clinical activity was noted. CONCLUSION: This EEG in awake, drowsy states, stage 1 sleep is within normal limits.
[2020-06-05] MEDS: ACETAMINOPHEN TAB 650MG DOSE (2X325MG) PO PRN (08:46)
[2020-06-05] MEDS: METOPROLOL TART 25 MG TABLET PO SCH ×2 (08:47→09:00)
[2020-06-05] MEDS ORDERED: NITROFURANTOIN (MACROBID) 100 MG CAP PO SCH (09:00)
[2020-06-05 14:00] VITALS: BP 140/79
[2020-06-05] MEDS ORDERED: METO1TAB87 PO (15:39)
[2020-06-05] MEDS ORDERED: NITR100C2 PO (15:39)
--- NOTE | 2020-06-05 16:48 | DS.PDOC ---
Discharge Summary General Date of Admission May 31, 2020 at 18:49 Date of Discharge 06/05/20 Discharge Summary PROCEDURES PERFORMED DURING STAY: [None]. ADMITTING DIAGNOSES: Syncope Schizoaffective disorder, bipolar type/Alzheimer's dementia Acute metabolic encephalopathy UTI Hypertension Hyponatremia Hypothyroidism Deconditioning/home safety Hands tremor DISCHARGE DIAGNOSES: Syncope Schizoaffective disorder, bipolar type/Alzheimer's dementia Acute metabolic encephalopathy UTI Hypertension Hyponatremia Hypothyroidism Deconditioning/home safety Hands tremor COMPLICATIONS/CHIEF COMPLAINT: Encephalopathy,Fall,Syncope. HISTORY OF PRESENT ILLNESS: Mrs. Felix is a 64 year old female with schizoaffective disorder, bipolar, and Alzheimer's disease who presents with confusion and syncope. Patient is a poor historian and does not remember what happened at home. She remembers feeling lightheaded, then falling. She does not remember how she fell or the circumstances of the fall. She realized that she was confused and that she should come to the ED. When she first came into the ED, she was hypotensive at 76/50. Otherwise no fever, tachycardia, or tachypnea. No leukocytosis. She was hyponatremic, but at baseline around 130. She was given 1L of NS and now is hypertensive. CT head was negative for acute changes. UA negative for UTI. When I saw the patient, she was very confused. She remember taking pills from [facility] and feeling lightheaded. She reports diarrhea and a little bit of shortness of breath but no other complaints. I tried to reach out to her sister, Shira Bernardo, but was not able to reach her salesperson corsets. Patient will be admitted for syncope and encephalopathy. HOSPITAL COURSE: During hospital stay the following issue addressed Syncope Most likely secondary to dehydration On admission, blood pressure low at 87/51, 76/50, and 83/43 Responded to fluids Echocardiogram normal Schizoaffective disorder, bipolar type/Alzheimer's dementia Due to her Alzheimer's dementia, she may have not been taking her psychiatry medications regularly Patient to go to [facility] when bed available Acute metabolic encephalopathy Multifactorial secondary to Alzheimer's dementia, polypharmacy and schizoaffective disorder complicated by UTI clonazepam and tizanidine on hold Frequent re orientation UTI Patient received antibiotics, continue nitrofurantoin for 2 days Hypertension Continue lisinopril Hyponatremia Patient has history of SIADH Improved Hypothyroidism Continue levothyroxine Deconditioning/home safety Patient lives home alone. 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 ALLERGIES: Please see below. PHYSICAL EXAMINATION ON DISCHARGE: VITAL SIGNS: Please see below. GENERAL APPEARANCE: NAD HEENT: no scleral icterus, no JVD, EOMI CARDIOVASCULAR: S1S2 LUNGS: CTA ABDOMEN: soft & not tender w palpitation MUSCULOSKELETAL: no cyanosis, no swelling INTEGUMENT: no generalized pallor NEUROLOGICAL: cranial nerve function from 2-12 intact intact, speech not dysarthric, essential tremors LABORATORY DATA: Please see below. PROGNOSIS: Guarded ACTIVITY: [As tolerated]. DIET: Regular DISPOSITION: Transferred to mental health unit ITEMS TO FOLLOWUP ON ON OUTPATIENT: Follow-up with psych team DISCHARGE CONDITION: [Stable]. TIME SPENT ON DISCHARGE: 40 minutes. Vital Signs/I&Os Vital Signs Date Time Temp Pulse Resp B/P (MAP) Pulse Ox O2 Delivery O2 Flow Rate FiO2 06/05/20 14:00 98.4 111 20 140/79 (99) 95 Room Air I&O- Last 24 Hours up to 6 AM 06/05/20 06:00 Intake Total 840 ml Output Total 0 ml Balance 840 ml Laboratory Data Labs 24H Laboratory Tests 2 06/05/20 06:26: Nucleated Red Blood Cells % (auto) 0.0, Anion Gap 9, Glomerular Filtration Rate 43.4L, Calcium Level 8.8 CBC/BMP Laboratory Tests 06/05/20 06:26 Microbiology Microbiology 06/05/20 Respiratory Virus Panel (PCR) (VERONICA), Received Pending 06/02/20 Urine Culture - Final, Complete Escherichia Coli 05/31/20 Blood Culture - Preliminary, Resulted No Growth after 72 hours. All specime... 05/31/20 Blood Culture - Final, Complete NO GROWTH AFTER 5 DAYS Discharge Medications Scheduled Benztropine Mesylate (Benztropine Mesylate) 0.5 Mg Tablet, 0.5 MG PO BID, (Reported) Calcium Carbonate (Calcium Carbonate) 500 Mg Tab, 500 MG PO DAILY, (Reported) Cholecalciferol (Vitamin D3) (Vitamin D3) 50 Mcg Capsule, 50 MCG PO DAILY, (Reported) Clonazepam (Clonazepam) 1 Mg Tablet, 1 MG PO BID, (Reported) Donepezil HCl (Donepezil HCl) 10 Mg Tablet, 10 MG PO DAILY, (Reported) Levothyroxine Sodium (Synthroid) 50 Mcg Tab, 50 MCG PO DAILY for HYPOTHYROIDISM, (Reported) Lisinopril (Lisinopril) 20 Mg Tab, 20 MG PO DAILY, (Reported) Metoprolol Tartrate (Metoprolol Tartrate) 25 Mg Tablet, 25 MG PO BID Multivitamins (Thera M Plus Tablet) 1 Tab Tab, 1 TAB PO DAILY for VITAMINS, (Re ported) Nitrofurantoin Monohyd/M-Cryst (Nitrofurantoin Camp-Mcr 100 mg) 100 Mg Capsule, 100 MG PO BID Paliperidone Palmitate (Invega Sustenna) 234 Mg/1.5 Ml Inj, 234 MG IM [id number], (Reported) Risperidone (Risperidone) 2 Mg Tablet, 2 MG PO QHS, (Reported) Risperidone (Risperidone) 1 Mg Tablet, 1 MG PO QAM, (Reported) Tizanidine HCl (Tizanidine HCl) 2 Mg Tablet, 2 MG PO BID, (Reported) Trazodone HCl (Trazodone HCl) 50 Mg Tablet, 50 MG PO QHS, (Reported) Scheduled PRN Clonazepam (Klonopin) 1 Mg Tablet, 1 MG PO Q4H PRN for ANXIETY, (Reported) Miscellaneous Medications [med rec comment] , (Reported) unable to speak with patient,used external med history Allergies Coded Allergies: No Known Allergies (Verified , 01/25/18) MALISSA JONES DO Jun 05, 2020 16:48
== END 2020-06-05 20:15 | DRG 640 ==
LOC: M ED 13:28 → M ED INP 18:49 → ENRESERV 19:38 → M PCU 20:52 → M MS5PR 06-01 14:47
PROVIDERS: ADMIT Internal Medicine; ATTEND Internal Medicine
DX: E86.0 Dehydration (principal); G93.41 Metabolic encephalopathy; N39.0 Urinary tract infection, site not specified; I95.9 Hypotension, unspecified; G30.9 Alzheimer's disease, unspecified; F25.0 Schizoaffective disorder, bipolar type; R55 Syncope and collapse; I10 Essential (primary) hypertension; R29.6 Repeated falls; E87.1 Hypo-osmolality and hyponatremia; E03.9 Hypothyroidism, unspecified; F02.80 Dementia in other diseases classified elsewhere, unspecified severity, without behavioral disturbance, psychotic disturbance, mood disturbance, and anxiety; Z79.899 Other long term (current) drug therapy; J45.909 Unspecified asthma, uncomplicated; E55.9 Vitamin D deficiency, unspecified; M81.0 Age-related osteoporosis without current pathological fracture

== ENCOUNTER 2020-06-05 15:47 | Inpatient (IN) | payer OTHER, MEDICAID ==
[~2020-06-05] VITALS: Ht 139.7 cm; Wt 72.1 kg
[~2020-06-05 15:47] MED LIST changes: +D3 S20002 PO; +DONE10TA90 PO; +KLON1TAB PO; +METO1TAB87 PO; +NITR100C2 PO; +RISP-8 PO; +RISP-9 PO; +TIZA1TAB12 PO; +TRAZ1TAB10 PO; +med rec comment
[2020-06-05] MEDS ORDERED: MOM 30ML SUSPENSION UDC PO PRN (16:00)
[2020-06-05] MEDS ORDERED: MAALOX 30 ML SUSP *UDC PO PRN (16:00)
[2020-06-05 20:27] VITALS: BP 122/76
[2020-06-06 07:06] VITALS: BP 179/104
[2020-06-06 07:56] VITALS: BP 132/70
[2020-06-06] MEDS ORDERED: clonazePAM 1 MG TAB PO PRN (13:50)
[2020-06-06] MEDS ORDERED: PILL CUTTER 1 EACH XX PRN (14:05)
--- NOTE | 2020-06-06 15:53 | MHHPEPDOC ---
General Date Of Admission: Jun 05, 2020 Legal Status: 9.39 Chief Complaint "Magic will help." History of Present Illness HISTORY OF THE PRESENT ILLNESS: Patient is a 64 -year-old Single, Disabled, Cognitively Impaired, Domiciled , female with a diagnosis of Schizoaffective, Bipolar type who has had two recent admissions to medicine the last few weeks. She presented with confusion, syncope and reported suicidal ideations on her last medical admission and was subsequently admitted to [facility]. Patient has had several psychiatric hospitalizations, no history of suicide attempts but had been admitted to this facility for confusion. Patient sees Dr. Yi at [facility] and has been her provider for 25+ years. Dr. Yi reports that patient has chronic delusions. She had been stable for quite a long time, but is developing symptoms of Dementia. She also is cognitively impaired. Dr. Yi reports that she had seen this patient during her recent medical admission and was observed to be psychotic with delusional thinking. Psychiatric Review of Systems Depression (2 or more weeks): depressed mood, anhedonia, difficulty concentrating, psychomotor changes, suicidal thoughts, other (confusion, patient is in the early stages of Dementia) Jessie (4 or more days of): expansive mood, denies Psychosis: auditory hallucination, delusions, disorganization PTSD: denies Anxiety: other (possibly has anxiety disorder, but patient is unable to particate fully in the interview) Past Psychiatric History Previous Psychiatric Diagnosis: Schizoaffective Disorder, Bipolar Type, Dementia Previous Psychiatric Admissions: Multiple Suicide Attempts: Suicidal ideations, no gestures or attempts Psychiatric Follow-up: Dr. Yi Psychiatric medications: Risperdal and Invega Sustenna. Past Medical History Medical Problems Syncope Schizoaffective disorder, bipolar type/Alzheimer's dementia Acute metabolic encephalopathy History of UTI Hypertension Hyponatremia Hypothyroidism Deconditioning/home safety Hands tremor History of Falls History of Back Pain Head Injury: No Seizures: No Hospitalizations: Yes Surgeries: No Family Medical/Psychiatric HX Medical Problems Father had Dementia Psychiatric Disorders: No Addiction: Yes (Sister - history of ETOH) Suicide Attemps/Completions: No Addiction History denies Social History Childhood: Patient was born in [place], states she has 1 brother and 4 Si sters. According to past chart: "Patient was a slow learner, she was late in learning to ambulate, she repeated the first grade. She reports a good childhood. She says she has one brother and three other sisters with whom she has good relationship, but doesn't talk with them much." Abuse/Trauma: Denies Current Living Situation: Currently lives on her own. Education: Finished high school. Employment:. She is on disability over reports a work history. Social Support:, Currently patient's parents are . She does have siblings. Legal:. Denies. Marital: Single, no children. Mental Status Examination General Appearance: disheveled, appears stated age, hospital scubs/clothing Build: overweight Demeanor: mistrustful, withdrawn, guarded, very figety, other (nervous) Eye Contact: avoidant Activity: anxious Behavior: withdrawn Speech: impoverished Mood: anxious Affect: flat Thought Process: blocked Thought Content (Delusions): delusions Thought Content (Other): preoccupied, guarded Thought Content (Aggressive): none reported Perception (Hallucinations): auditory Perception (Other): none reported Cognition (Impairment of): attention/concentration (early stages of Dementia) Cognition(Intelligence Est.): average Oriented: Awake, Alert, Oriented times three Insight: other (impaired) Judgment: Other (impaired) Psychosis: Psychotic Perceptions (observed responding to internal stimuli) Diagnoses Schizoaffective Disorder, Bipolar Type Dementia Syncope History of Acute metabolic encephalopathy History of UTI Hypertension Hyponatremia Hypothyroidism Deconditioning/home safety Hands tremor History of Falls History of Back Pain A-FIB/CHADSVASC A-FIB History Current/History of A-Fib/PAF?: No Current PO Anticoag Therapy: No Assessment Patient is a 64 year old Single, Disabled, Cognitively Impaired, Domiciled, Female who has a history of Schizoaffective Disorder, Bipolar type with multiple admissions to this facility for past admissions for contusion, suicidal ideations and disorganization. It appears that this patient relied on her parents guidance for much of her life, her parents are and patient has been diagnosed with early stages of Dementia. Pt is admitted to psychiatry having been medically discharged from medical floor for the following: Acute Met abolic Encephalopathy, Syncope, Hyponatremia and UTI. Patient is noted to be fidgeting in her wheelchair, appearing anxious, Her speech is impoverished and although she had normal rate tone and volume in her speech, she is minimal and confused in her responses. Patient to be started on the medications that she was on when she was discharged from the medical floor, we will continue her Invega Sustenna and determine when her next injection is due. I feel strongly that this patient will need increased services or assisted living when discharged. We will collaborate that with her family. When asked about her suicidal ideation, she reports no real planning or intent and states that she would never really harm herself. Patient will be discharged when she is stable. Initial Treatment Plan 1. Patient was admitted on a [9.39] status. 2. Complete history was obtained. 3. With patients permission, family will be contacted and database will be expanded. 4. Patients medication regimen will be reviewed and changed accordingly. 5. Patient will be provided with protected environment. 6. Patient will be treated with individual, group, and milieu therapies. 7. Patient will receive supportive psych-education. 8. Discharge planning will commence immediately. 9. Outpatient follow-up treatment will be strongly recommended. 10. The initial treatment plan will focus initially on: * Depression. * Risk for suicide. * Reorientation when needed * occupational/physical therapy ESTIMATED LENGTH OF STAY: 3-5 DAYS. TIME SPENT COUNSELING AND COORDINATING INITIAL CARE: 60 minutes. Ordered/Pending Vital Signs Vital Signs Date Time Temp Pulse Resp B/P (MAP) Pulse Ox O2 Delivery O2 Flow Rate FiO2 06/06/20 07:56 132/70 (90) 06/06/20 07:06 98.1 108 96 20 Room Air Medications Scheduled Benztropine Mesylate (Benztropine Mesylate) 0.5 Mg Tablet, 0.5 MG PO BID, (Reported) Calcium Carbonate (Calcium Carbonate) 500 Mg Tab, 500 MG PO DAILY, (Reported) Cholecalciferol (Vitamin D3) (Vitamin D3) 50 Mcg Capsule, 50 MCG PO DAILY, (Reported) Clonazepam (Clonazepam) 1 Mg Tablet, 1 MG PO BID, (Reported) Donepezil HCl (Donepezil HCl) 10 Mg Tablet, 10 MG PO DAILY, (Reported) Levothyroxine Sodium (Synthroid) 50 Mcg Tab, 50 MCG PO DAILY for HYPOTHYROIDISM, (Reported) Lisinopril (Lisinopril) 20 Mg Tab, 20 MG PO DAILY, (Reported) Metoprolol Tartrate (Metoprolol Tartrate) 25 Mg Tablet, 25 MG PO BID Multivitamins (Thera M Plus Tablet) 1 Tab Tab, 1 TAB PO DAILY for VITAMINS, (Reported) Nitrofurantoin Monohyd/M-Cryst (Nitrofurantoin [place]-Mcr 100 mg) 100 Mg Capsule, 100 MG PO BID Paliperidone Palmitate (Invega Sustenna) 234 Mg/1.5 Ml Inj, 234 MG IM [id number], (Reported) Risperidone (Risperidone) 2 Mg Tablet, 2 MG PO QHS, (Reported) Risperidone (Risperidone) 1 Mg Tablet, 1 MG PO QAM, (Reported) Tizanidine HCl (Tizanidine HCl) 2 Mg Tablet, 2 MG PO BID, (Reported) Trazodone HCl (Trazodone HCl) 50 Mg Tablet, 50 MG PO QHS, (Reported) Scheduled PRN Clonazepam (Klonopin) 1 Mg Tablet, 1 MG PO Q4H PRN for ANXIETY, (Reported) Miscellaneous Medications [med rec comment] , (Reported) unable to speak with patient,used external med history Allergies Coded Allergies: No Known Allergies (Verified , 01/25/18) TEO BARRERA NP Jun 06, 2020 15:28
[2020-06-06 16:14] VITALS: BP 128/83
--- NOTE | 2020-06-06 17:45 | HPEPDOC ---
General Date of Admission Jun 05, 2020 at 15:47 Date of Service: Jun 06, 2020 Chief Complaint The patient is a 64-year-old female admitted with a reason for visit of . Source: Old records History of Present Illness Patient is a 64 year old female with schizoaffective disorder, bipolar, and Alzheimer's disease was seen in mental health unit. Patient did not communicate with me, I took her history from previous records. Patient was recently admitted to general medicine due to increased confusion and suicidal ideation, patient was found to have a UTI treated with antibiotic therapy, subsequently she was transferred to mental health unit. Patient continues to be pleasantly confused and did not answer my questions Home Medications Scheduled Benztropine Mesylate (Benztropine Mesylate) 0.5 Mg Tablet, 0.5 MG PO BID, (Reported) Calcium Carbonate (Calcium Carbonate) 500 Mg Tab, 500 MG PO DAILY, (Reported) Cholecalciferol (Vitamin D3) (Vitamin D3) 50 Mcg Capsule, 50 MCG PO DAILY, (Reported) Clonazepam (Clonazepam) 1 Mg Tablet, 1 MG PO BID, (Reported) Donepezil HCl (Donepezil HCl) 10 Mg Tablet, 10 MG PO DAILY, (Reported) Levothyroxine Sodium (Synthroid) 50 Mcg Tab, 50 MCG PO DAILY for HYPOTHYROIDISM, (Reported) Lisinopril (Lisinopril) 20 Mg Tab, 20 MG PO DAILY, (Reported) Metoprolol Tartrate (Metoprolol Tartrate) 25 Mg Tablet, 25 MG PO BID Multivitamins (Thera M Plus Tablet) 1 Tab Tab, 1 TAB PO DAILY for VITAMINS, (Reported) Nitrofurantoin Monohyd/M-Cryst (Nitrofurantoin [place]-Mcr 100 mg) 100 Mg Capsule, 100 MG PO BID Paliperidone Palmitate (Invega Sustenna) 234 Mg/1.5 Ml Inj, 234 MG IM [id number], (Reported) Risperidone (Risperidone) 2 Mg Tablet, 2 MG PO QHS, (Reported) Risperidone (Risperidone) 1 Mg Tablet, 1 MG PO QAM, (Reported) Tizanidine HCl (Tizanidine HCl) 2 Mg Tablet, 2 MG PO BID, (Reported) Trazodone HCl (Trazodone HCl) 50 Mg Tablet, 50 MG PO QHS, (Reported) Scheduled PRN Clonazepam (Klonopin) 1 Mg Tablet, 1 MG PO Q4H PRN for ANXIETY, (Reported) Miscellaneous Medications [med rec comment] , (Reported) unable to speak with patient,used external med history Allergies Coded Allergies: No Known Allergies (Verified , 01/25/18) Past Medical History Medical History Schizoaffective Disorder, Bipolar Type Dementia Syncope History of Acute metabolic encephalopathy History of UTI Hypertension Hyponatremia Hypothyroidism Deconditioning/home safety Hands tremor History of Falls History of Back Pain Family History Father had Dementia Social History * Smoker: Denies Alcohol: Denies Drugs: denies A-FIB/CHADSVASC A-FIB History Current/History of A-Fib/PAF?: No Current PO Anticoag Therapy: No Review of Systems Constitutional: Reports: Chills, Other (unable to obtain due to confusion) Physical Examination General Exam: Negative: Cooperative Eye Exam: Positive: PERRLA ENT Exam: Positive: Atraumatic Neck Exam: Positive: Supple Chest Exam: Positive: Clear to auscultation Heart Exam: Positive: Rate Normal Telemetry: Positive: No significant arrhythmia Abdomen Exam: Positive: Normal bowel sounds Extremity Exam: Negative: Clubbing Skin Exam: Positive: Nl turgor and temperature Neuro Exam: Positive: Cranial Nerves 3-12 NL Psych Exam: Negative: Mental status NL, Oriented x 3 Vital Signs Vital Signs Date Time Temp Pulse Resp B/P (MAP) Pulse Ox O2 Delivery O2 Flow Rate FiO2 06/06/20 16:14 98.0 98 18 128/83 (98) 95 Room Air Assessment/Plan Patient is a 64 year old female with schizoaffective disorder, bipolar, and Alzheimer's disease was seen in mental health unit. Patient did not communicate with me, I took her history from previous records. Patient was recently admitted to general medicine due to increased confusion and suicidal ideation, patient was found to have a UTI treated with antibiotic therapy, subsequently she was transferred to mental health unit. Patient continues to be pleasantly confused and did not answer my questions Problems (1) Schizoaffective disorder Status: Chronic Problem Text: Deferred treatment to psych team (2) Encephalopathy Status: Chronic Problem Text: Multifactorial. Most likely attributed to her mental condition has Alzheimer dementia, bipolar disorder, psychogenic active, Schizoaffective disorder (3) Hypertension Status: Chronic Problem Text: Continue home meds (4) Hypothyroidism Status: Chronic Problem Text: Continue levothyroxine (5) Hyponatremia Status: Chronic Problem Text: Sodium level of 131 on 06/05 continue to monitor Plan / VTE VTE Prophylaxis Ordered?: No VTE Exclusion Mechanical Proph: Low Risk for VTE MALISSA JONES DO Jun 06, 2020 17:45
[2020-06-06] MEDS ORDERED: tiZANidine 4 MG TAB PO SCH (21:00)
[2020-06-06] MEDS ORDERED: clonazePAM 1 MG TAB PO SCH (21:00)
[2020-06-06] MEDS ORDERED: traZODone 50 MG TAB PO SCH (21:00)
[2020-06-06] MEDS: METOPROLOL TART 25 MG TABLET PO SCH (21:36)
[2020-06-06] MEDS: BENZTROPINE 0.5 MG TAB PO SCH (21:37)
[2020-06-06] MEDS: NITROFURANTOIN (MACROBID) 100 MG CAP PO SCH (21:37)
[2020-06-06] MEDS: risperiDONE 2 MG TAB PO SCH (21:37)
[2020-06-07] MEDS ORDERED: PHENAZOPYRIDINE 100 MG TAB PO ONE (01:00)
[2020-06-07] MEDS: LEVOTHYROXINE 50MCG TABLET (0.05MG) PO SCH (05:59)
[2020-06-07 06:00] VITALS: BP 121/76
[2020-06-07 08:12] LABS: CHOLESTEROL RISK RATIO 1.654 (<5)
[2020-06-07] MEDS: DONEPEZIL 5 MG TAB PO SCH (09:00)
[2020-06-07] MEDS ORDERED: risperiDONE 1 MG TAB PO SCH (09:00)
[2020-06-07] MEDS: METOPROLOL TART 25 MG TABLET PO SCH (09:00)
[2020-06-07] MEDS: BENZTROPINE 0.5 MG TAB PO SCH (09:00)
[2020-06-07] MEDS: MULTIVITAMINS/MINERALS THERAP 1 TAB PO SCH (09:00)
[2020-06-07] MEDS: OYSTER SHELL CALCIUM 500 MG TAB PO SCH (09:00)
[2020-06-07] MEDS: NITROFURANTOIN (MACROBID) 100 MG CAP PO SCH (09:00)
[2020-06-07] MEDS: CALCIUM/VITAMIN D 500 MG TAB PO SCH (09:28)
--- NOTE | 2020-06-07 09:55 | MHIPNPDOC ---
[facility] Progress Note Progress Note DATE OF SERVICE: 06/07/20 HISTORY: Patient is a 64 -year-old Single, Disabled, Cognitively Impaired, Domiciled , female with a diagnosis of Schizoaffective, Bipolar type who has had two recent admissions to medicine the last few weeks. She presented with confusion, syncope and reported suicidal ideations on her last medical admission and was subsequently admitted to [facility]. Patient has had several psychiatric hospitalizations, no history of suicide attempts but had been admitted to this facility for confusion. Patient sees Dr. Yi at [facility] and has been her provider for 25+ years. Dr. Yi reports that patient has chronic delusions. She had been stable for quite a long time, but is developing symptoms of Dementia. She also is cognitively impaired. Dr. Yi reports that she had seen this patient during her recent medical admission and was observed to be psychotic with delusional thinking. VITAL SIGNS: See below. CURRENT MEDICATIONS: See below. MENTAL STATUS EXAMINATION: Patient is a 64 -year-old Single, Disabled, Cognitively Impaired, Domiciled , female with a diagnosis of Schizoaffective, Bipolar type who has had two recent admissions to medicine, presented with confusion, syncope and reported suicidal ideations. While on the medical unit, she was observed to be psychotic with delusions. Speech: with paucity, no to minimal responses Language skills are not intact Thought processes including: blocked Thought content: unable to determine, patient is blocked Abstract reasoning, and computation: unable to assess Description of associations: unable to assess Description of abnormal or psychotic thoughts: none observed. Judgment: impaired Insight: impaired Orientation: alert and oriented to person, place Recent and remote memory: impaired Attention span and concentration: poor Language: impaired Fund of knowledge: below average Mood: Anxious/ Blunted/Blocked Affect: Flat/Blunted DIAGNOSES: Schizoaffective Disorder, Bipolar Type Dementia Syncope History of Acute metabolic encephalopathy History of UTI Hypertension Hyponatremia Hypothyroidism Deconditioning/home safety Hands tremor History of Falls History of Back Pain ASSESSMENT: Patient seen today, sitting in wheelchair, she is on a 1:1 sitter for her syncopal and deconditioned mobility. In today's session she is non- verbal, eye contact is downcast. Mood is anxious/blocked. Affect is blunted and flat. She is impoverished in speech and when asked if she remembered me from yesterday, she stated "was it yesterday?" Patient is nonverbal the rest of the interview, and did not maintain eye contact. She was very tremulous. According to staff, patient had walked to the bathroom yesterday but today is non-weight bearing after physical therapy saw her. Patient is unable to feed herself today and is again non-verbal in her interview. Patient is quite blocked. Requested 2nd psychiatrist to consult. MANAGEMENT PLAN: Continue all medications TIME SPENT:35 minutes. Vital Signs Vital Signs Date Time Temp Pulse Resp B/P (MAP) Pulse Ox O2 Delivery O2 Flow Rate FiO2 06/07/20 06:00 93.3 92 20 121/76 (91) 95 06/06/20 16:14 Room Air Laboratory Data 24H Labs Laboratory Tests 2 06/07/20 07:32: Triglycerides Level 61, Total Cholesterol 177, LDL Cholesterol 58, Non-HDL Cho lesterol (LDL + VLDL) 70, Total HDL Cholesterol 107, Cholesterol/HDL Ratio 1.654 Current Medications Current Medications Medications (Trade) Dose Ordered Sig/Dev Route PRN Reason Start Time Stop Time Status Last Admin Dose Admin Acetaminophen (Tylenol Tab) 650 mg Q6HP PRN PO HEADACHE or DISCOMFORT 06/05/20 16:00 Al Hydrox/Mg Hydrox/Simethicone (Mylanta) 30 ml Q4HP PRN PO HEARTBURN/INDIGESTION 06/05/20 16:00 Benztropine Mesylate (Cogentin) 0.5 mg BID PO 06/06/20 21:00 06/06/20 21:37 Calcium Carbonate (Oscal) 500 mg DAILY PO 06/07/20 09:00 Calcium/Vitamin D (Oscal D) 500 mg DAILY PO 06/07/20 09:00 Clonazepam (KlonoPIN) 1 mg BID PO 06/06/20 21:00 06/06/20 15:25 DC Clonazepam (KlonoPIN) 1 mg Q4H PRN PO ANXIETY 06/06/20 13:50 06/06/20 15:25 DC Donepezil HCl (AriCEPT) 10 mg DAILY PO 06/07/20 09:00 Home Med (Med Rec Complete!) ASDIRECTED XX 06/06/20 11:40 06/06/20 11:49 DC Levothyroxine Sodium (Synthroid) 50 mcg DAILY@0600 PO 06/07/20 06:00 06/07/20 05:59 Lisinopril (Prinivil) 20 mg DAILY PO 06/07/20 09:00 Magnesium Hydroxide (Milk Of Magnesia) 30 ml DAILYPRN PRN PO CONSTIPATION 06/05/20 16:00 Metoprolol Tartrate (Lopressor) 25 mg BID PO 06/06/20 21:00 06/06/20 21:36 Multivitamins (Theragram-M) 1 tab DAILY PO 06/07/20 09:00 Nitrofurantoin Monoh/Nitrofur Macro (Macrobid) 100 mg BID PO 06/06/20 21:00 06/06/20 21:37 Risperidone (RisperDAL) 1 mg QAM PO 06/07/20 09:00 Risperidone (RisperDAL) 2 mg QHS PO 06/06/20 21:00 06/06/20 21:37 Tizanidine HCl (Zanaflex) 2 mg BID PO 06/06/20 21:00 06/06/20 15:25 DC Trazodone HCl (Desyrel) 50 mg QHS PO 06/06/20 21:00 06/06/20 14:00 DC Trazodone HCl (Desyrel) 50 mg QHSP PRN PO INSOMNIA 06/05/20 16:00 Allergies Coded Allergies: No Known Allergies (Verified , 01/25/18) TEO BARRERA NP Jun 07, 2020 09:51
[2020-06-07] MEDS ORDERED: LORazepam 2 MG/ML VIAL IM STA (10:57)
[2020-06-07 16:21] VITALS: BP 128/65
[2020-06-07] MEDS ORDERED: ONDANSETRON 4 MG TAB PO PRN (17:55)
[2020-06-08] MEDS: NITROFURANTOIN (MACROBID) 100 MG CAP PO SCH ×3 (00:42→20:28)
[2020-06-08] MEDS: BENZTROPINE 0.5 MG TAB PO SCH ×3 (00:42→20:28)
[2020-06-08] MEDS: risperiDONE 2 MG TAB PO SCH ×2 (00:43→20:27)
[2020-06-08] MEDS: METOPROLOL TART 25 MG TABLET PO SCH ×3 (00:44→20:28)
[2020-06-08] MEDS: LEVOTHYROXINE 50MCG TABLET (0.05MG) PO SCH (06:23)
[2020-06-08] MEDS: DONEPEZIL 5 MG TAB PO SCH (09:01)
[2020-06-08] MEDS: OYSTER SHELL CALCIUM 500 MG TAB PO SCH (09:01)
[2020-06-08] MEDS: CALCIUM/VITAMIN D 500 MG TAB PO SCH (09:02)
[2020-06-08] MEDS: MULTIVITAMINS/MINERALS THERAP 1 TAB PO SCH (09:02)
[2020-06-08] MEDS ORDERED: LORazepam 2 MG/ML VIAL IM STA (14:56)
[2020-06-08 16:27] VITALS: BP 128/71
[2020-06-09] MEDS: LEVOTHYROXINE 50MCG TABLET (0.05MG) PO SCH (06:29)
[2020-06-09 06:32] VITALS: BP 111/56
[2020-06-09] MEDS: DONEPEZIL 5 MG TAB PO SCH (08:59)
[2020-06-09] MEDS: METOPROLOL TART 25 MG TABLET PO SCH ×2 (09:03→21:35)
[2020-06-09] MEDS: OYSTER SHELL CALCIUM 500 MG TAB PO SCH (09:03)
[2020-06-09] MEDS: CALCIUM/VITAMIN D 500 MG TAB PO SCH (09:03)
[2020-06-09] MEDS: BENZTROPINE 0.5 MG TAB PO SCH ×2 (09:03→21:26)
[2020-06-09] MEDS: NITROFURANTOIN (MACROBID) 100 MG CAP PO SCH ×2 (09:03→21:27)
[2020-06-09] MEDS: MULTIVITAMINS/MINERALS THERAP 1 TAB PO SCH (09:03)
[2020-06-09 17:04] VITALS: BP 104/61
[2020-06-09] MEDS: risperiDONE 2 MG TAB PO SCH (21:26)
[2020-06-09] MEDS: traZODone 50 MG TAB PO PRN (21:27)
[2020-06-10] MEDS: LEVOTHYROXINE 50MCG TABLET (0.05MG) PO SCH (06:06)
[2020-06-10] MEDS: DONEPEZIL 5 MG TAB PO SCH (09:55)
[2020-06-10] MEDS: BENZTROPINE 0.5 MG TAB PO SCH ×2 (09:55→20:08)
[2020-06-10] MEDS: CALCIUM/VITAMIN D 500 MG TAB PO SCH (09:55)
[2020-06-10] MEDS: MULTIVITAMINS/MINERALS THERAP 1 TAB PO SCH (09:56)
[2020-06-10] MEDS: METOPROLOL TART 25 MG TABLET PO SCH ×2 (09:56→20:13)
[2020-06-10] MEDS: LORazepam 1 MG TAB PO SCH (09:56)
[2020-06-10] MEDS: OYSTER SHELL CALCIUM 500 MG TAB PO SCH (09:57)
--- NOTE | 2020-06-10 17:35 | MHIPNPDOC ---
[facility] Progress Note Progress Note DATE OF SERVICE: 06/10/20 HISTORY: Patient is a 64 -year-old Single, Disabled, Cognitively Impaired, Domiciled , female with a diagnosis of Schizoaffective, Bipolar type who has had two recent admissions to medicine the last few weeks. She presented with confusion, syncope and reported suicidal ideations on her last medical admission and was subsequently admitted to [facility]. Patient has had several psychiatric hospitalizations, no history of suicide attempts but had been admitted to this facility for confusion. Patient sees Dr. Yi at [facility] and has been her provider for 25+ years. Dr. Yi reports that patient has chronic delusions. She had been stable for quite a long time, but is developing symptoms of Dementia. She also is cognitively impaired. Dr. Yi reports that she had seen this patient during her recent medical admission and was observed to be psychotic with delusional thinking. VITAL SIGNS: See below. CURRENT MEDICATIONS: See below. MENTAL STATUS EXAMINATION: Patient is a 64 -year-old Single, Disabled, Cognitively Impaired, Domiciled , female with a diagnosis of Schizoaffective, Bipolar type who has had two recent admissions to medicine, presented with confusion, syncope and reported suicidal ideations. While on the medical unit, she was observed to be psychotic with delusions. Speech: is impoverished at times, normal tone and volume. Hesitant Language skills Thought processes including: more linear, at times is scattered Thought content: reports mild depression anxiety Abstract reasoning, and computation: fair to poor at times Description of associations: denies Description of abnormal or psychotic thoughts: none observed. Judgment: improving Insight: improving Orientation: alert and oriented to person, Recent and remote memory: impaired Attention span and concentration: Language: improving Fund of knowledge: below average Mood: Anxious/ Blunted/Blocked Affect: Flat/Blunted DIAGNOSES: Schizoaffective Disorder, Bipolar Type Dementia Syncope History of Acute metabolic encephalopathy History of UTI Hypertension Hyponatremia Hypothyroidism Deconditioning/home safety Hands tremor History of Falls History of Back Pain ASSESSMENT: Patient is on 1:1 for high fall risks. Patient was found lying in bed, did not eat breakfast or get her medications initially and had not gotten up to use the bathroom. Provider assisted patient to bathroom, she was unable to urinate. Patient was placed in her wheelchair to allow her to travel to the med room. Med nurse administered medications in her room. Pt reports mild depression and states that she was suicidal on admission. She is unable to report her current suicidality, when asked she was laughing inappropriately and making inappropriate statements "I need to air myself out, I want my cat, where is my cat, you can have her." MANAGEMENT PLAN: Continue all medications TIME SPENT:35 minutes. Vital Signs Vital Signs Date Time Temp Pulse Resp B/P (MAP) Pulse Ox O2 Delivery O2 Flow Rate FiO2 06/09/20 21:35 110 200/90 06/09/20 17:04 98.9 16 98 Room Air Current Medications Current Medications Medications (Trade) Dose Ordered Sig/Dev Route PRN Reason Start Time Stop Time Status Last Admin Dose Admin Acetaminophen (Tylenol Tab) 650 mg Q6HP PRN PO HEADACHE or DISCOMFORT 06/05/20 16:00 Al Hydrox/Mg Hydrox/Simethicone (Mylanta) 30 ml Q4HP PRN PO HEARTBURN/INDIGESTION 06/05/20 16:00 Benztropine Mesylate (Cogentin) 0.5 mg BID PO 06/06/20 21:00 06/09/20 21:26 Calcium Carbonate (Oscal) 500 mg DAILY PO 06/07/20 09:00 06/09/20 09:03 Calcium/Vitamin D (Oscal D) 500 mg DAILY PO 06/07/20 09:00 06/09/20 09:03 Clonazepam (KlonoPIN) 1 mg BID PO 06/06/20 21:00 06/06/20 15:25 DC Clonazepam (KlonoPIN) 1 mg Q4H PRN PO ANXIETY 06/06/20 13:50 06/06/20 15:25 DC Donepezil HCl (AriCEPT) 10 mg DAILY PO 06/07/20 09:00 06/09/20 08:59 Home Med (Med Rec Complete!) ASDIRECTED XX 06/06/20 11:40 06/06/20 11:49 DC Levothyroxine Sodium (Synthroid) 50 mcg DAILY@0600 PO 06/07/20 06:00 06/10/20 06:06 Lisinopril (Prinivil) 20 mg DAILY PO 06/07/20 09:00 06/09/20 09:03 Lorazepam (Ativan) 1 mg STAT STAT IM 06/07/20 10:57 06/07/20 11:01 DC 06/07/20 11:34 Lorazepam (Ativan) 1 mg STAT STAT IM 06/08/20 14:56 06/08/20 15:02 DC 06/08/20 15:21 Magnesium Hydroxide (Milk Of Magnesia) 30 ml DAILYPRN PRN PO CONSTIPATION 06/05/20 16:00 Metoprolol Tartrate (Lopressor) 25 mg BID PO 06/06/20 21:00 06/09/20 21:35 Multivitamins (Theragram-M) 1 tab DAILY PO 06/07/20 09:00 06/09/20 09:03 Nitrofurantoin Monoh/Nitrofur Macro (Macrobid) 100 mg BID PO 06/06/20 21:00 06/09/20 21:27 Ondansetron HCl (Zofran) 4 mg BIDP PRN PO NAUSEA 06/07/20 17:55 Risperidone (RisperDAL) 1 mg QAM PO 06/07/20 09:00 06/07/20 11:01 DC Risperidone (RisperDAL) 2 mg QHS PO 06/06/20 21:00 06/09/20 21:26 Tizanidine HCl (Zanaflex) 2 mg BID PO 06/06/20 21:00 06/06/20 15:25 DC Trazodone HCl (Desyrel) 50 mg QHS PO 06/06/20 21:00 06/06/20 14:00 DC Trazodone HCl (Desyrel) 50 mg QHSP PRN PO INSOMNIA 06/05/20 16:00 06/09/20 21:27 Allergies Coded Allergies: No Known Allergies (Verified , 01/25/18) TEO BARRERA [employer] Jun 10, 2020 08:25
[2020-06-10 19:13] VITALS: BP 131/68
[2020-06-10] MEDS: traZODone 50 MG TAB PO PRN (20:13)
[2020-06-10] MEDS: risperiDONE 2 MG TAB PO SCH (20:13)
[2020-06-11] MEDS: LEVOTHYROXINE 50MCG TABLET (0.05MG) PO SCH (06:18)
[2020-06-11 07:12] VITALS: BP 148/78
[2020-06-11] MEDS: OYSTER SHELL CALCIUM 500 MG TAB PO SCH (08:51)
[2020-06-11] MEDS: CALCIUM/VITAMIN D 500 MG TAB PO SCH (08:51)
[2020-06-11] MEDS: DONEPEZIL 5 MG TAB PO SCH (08:51)
[2020-06-11] MEDS: BENZTROPINE 0.5 MG TAB PO SCH ×2 (08:52→20:34)
[2020-06-11] MEDS: LORazepam 1 MG TAB PO SCH (08:52)
[2020-06-11] MEDS: MULTIVITAMINS/MINERALS THERAP 1 TAB PO SCH (08:52)
[2020-06-11] MEDS: METOPROLOL TART 25 MG TABLET PO SCH ×2 (08:53→20:34)
--- NOTE | 2020-06-11 09:02 | MHIPN ---
PENDING SALE TO [facility] PROGRESS NOTE DATE: 06/09/2020 This is a video assessment. She is seen in the presence of staff. Vital signs: Blood pressure 104/65, pulse 90, temperature 98.9. CHIEF COMPLAINT: Feels a bit anxious. SUBJECTIVE: Seen for followup. Indicates has been feeling anxious, including this morning, she feels she did not sleep that soundly because of some anxiety. Has been eating though suggests appetite may be diminished a bit. MENTAL STATUS EXAMINATION: She is in a wheelchair. She is cooperative. She is coherent, somewhat more interactive than yesterday, speech more spontaneous, with a broader affect. Denies any suicidal thoughts or intents. No overt delusions. Judgment and insight are compromised. ASSESSMENT: Schizoaffective disorder. Possible neurocognitive disorder. PLAN: Continue current care, observations, clinically somewhat improved. Encourage participation in activities as tolerated. She will see the clinicians tomorrow, and further recommendations will be made.
--- NOTE | 2020-06-11 17:06 | MHIPNPDOC ---
[facility] Progress Note Progress Note DATE OF SERVICE: 06/11/20 HISTORY: Patient is a 64 -year-old Single, Disabled, Cognitively Impaired, Domiciled , female with a diagnosis of Schizoaffective, Bipolar type who has had two recent admissions to medicine the last few weeks. She presented with confusion, syncope and reported suicidal ideations on her last medical admission and was subsequently admitted to [facility]. Patient has had several psychiatric hospitalizations, no history of suicide attempts but had been admitted to this facility for confusion. Patient sees Dr. Yi at [facility] and has been her provider for 25+ years. Dr. Yi reports that patient has chronic delusions. She had been stable for quite a long time, but is developing symptoms of Dementia. She also is cognitively impaired. Dr. Yi reports that she had seen this patient during her recent medical admission and was observed to be psychotic with delusional thinking. VITAL SIGNS: See below. CURRENT MEDICATIONS: See below. MENTAL STATUS EXAMINATION: Patient is a 64 -year-old Single, Disabled, Cognitively Impaired, Domiciled , female with a diagnosis of Schizoaffective, Bipolar type who has had two recent admissions to medicine, presented with confusion, syncope and reported suicidal ideations. While on the medical unit, she was observed to be psychotic with delusions. Speech: is impoverished at times, normal tone and volume. Hesitant Language skills Thought processes including: more linear, less scattered Thought content: reports milder depression anxiety Abstract reasoning, and computation: fair Description of associations: denies Description of abnormal or psychotic thoughts: none observed. Judgment: fair Insight: fair Orientation: alert and oriented to person, Recent and remote memory: impaired Attention span and concentration: good Language: improving Fund of knowledge: below average Mood: Brighter Affect: Reactive/Full DIAGNOSES: Schizoaffective Disorder, Bipolar Type Dementia Syncope History of Acute metabolic encephalopathy History of UTI Hypertension Hyponatremia Hypothyroidism Deconditioning/home safety Hands tremor History of Falls History of Back Pain ASSESSMENT: Patient is on 1:1 for high fall risks. Patient was found lying in bed, but is more talkative. She reports mild to moderate depression because of being in the hospital but is not observed with manic. She denies A/V hallucinations. She states that she would like to go home, she was observed in the hallway ambulating in the hallways using a wheelchair for mobility. She also was observed dancing. Patient may need additional services for her discharge on , including a rolling wheelchair. MANAGEMENT PLAN: Continue all medications. Will consider discharge on , per patient's request TIME SPENT:35 minutes. Vital Signs Vital Signs Date Time Temp Pulse Resp B/P (MAP) Pulse Ox O2 Delivery O2 Flow Rate FiO2 06/11/20 08:53 72 148/78 06/11/20 07:12 99.5 20 06/09/20 17:04 98 Room Air Current Medications Current Medications Medications (Trade) Dose Ordered Sig/Dev Route PRN Reason Start Time Stop Time Status Last Admin Dose Admin Acetaminophen (Tylenol Tab) 650 mg Q6HP PRN PO HEADACHE or DISCOMFORT 06/05/20 16:00 Al Hydrox/Mg Hydrox/Simethicone (Mylanta) 30 ml Q4HP PRN PO HEARTBURN/INDIGESTION 06/05/20 16:00 Benztropine Mesylate (Cogentin) 0.5 mg BID PO 06/06/20 21:00 06/11/20 08:52 Calcium Carbonate (Oscal) 500 mg DAILY PO 06/07/20 09:00 06/11/20 09:26 DC 06/11/20 08:51 Calcium/Vitamin D (Oscal D) 500 mg DAILY PO 06/07/20 09:00 06/11/20 08:51 Clonazepam (KlonoPIN) 1 mg BID PO 06/06/20 21:00 06/06/20 15:25 DC Clonazepam (KlonoPIN) 1 mg Q4H PRN PO ANXIETY 06/06/20 13:50 06/06/20 15:25 DC Donepezil HCl (AriCEPT) 10 mg DAILY PO 06/07/20 09:00 06/11/20 08:51 Home Med (Med Rec Complete!) ASDIRECTED XX 06/06/20 11:40 06/06/20 11:49 DC Levothyroxine Sodium (Synthroid) 50 mcg DAILY@0600 PO 06/07/20 06:00 06/11/20 06:18 Lisinopril (Prinivil) 20 mg DAILY PO 06/07/20 09:00 06/11/20 08:52 Lorazepam (Ativan) 1 mg DAILY PO 06/10/20 09:00 06/11/20 08:52 Lorazepam (Ativan) 1 mg STAT STAT IM 06/07/20 10:57 06/07/20 11:01 DC 06/07/20 11:34 Lorazepam (Ativan) 1 mg STAT STAT IM 06/08/20 14:56 06/08/20 15:02 DC 06/08/20 15:21 Magnesium Hydroxide (Milk Of Magnesia) 30 ml DAILYPRN PRN PO CONSTIPATION 06/05/20 16:00 Metoprolol Tartrate (Lopressor) 25 mg BID PO 06/06/20 21:00 06/11/20 08:53 Multivitamins (Theragram-M) 1 tab DAILY PO 06/07/20 09:00 06/11/20 08:52 Nitrofurantoin Monoh/Nitrofur Macro (Macrobid) 100 mg BID PO 06/06/20 21:00 06/10/20 09:51 DC 06/09/20 21:27 Ondansetron HCl (Zofran) 4 mg BIDP PRN PO NAUSEA 06/07/20 17:55 Risperidone (RisperDAL) 1 mg QAM PO 06/07/20 09:00 06/07/20 11:01 DC Risperidone (RisperDAL) 2 mg QHS PO 06/06/20 21:00 06/10/20 20:13 Tizanidine HCl (Zanaflex) 2 mg BID PO 06/06/20 21:00 06/06/20 15:25 DC Trazodone HCl (Desyrel) 50 mg QHS PO 06/06/20 21:00 06/06/20 14:00 DC Trazodone HCl (Desyrel) 50 mg QHSP PRN PO INSOMNIA 06/05/20 16:00 06/10/20 20:13 Allergies Coded Allergies: No Known Allergies (Verified , 01/25/18) TEO BARRERA [employer]ATION[employer] COUNSELOR Jun 11, 2020 11:41
[2020-06-11 18:15] VITALS: BP 130/65
[2020-06-11] MEDS: traZODone 50 MG TAB PO PRN (20:33)
[2020-06-11] MEDS: risperiDONE 2 MG TAB PO SCH (20:34)
[2020-06-12 06:00] VITALS: BP 164/72
[2020-06-12] MEDS: LEVOTHYROXINE 50MCG TABLET (0.05MG) PO SCH (06:07)
[2020-06-12] MEDS: METOPROLOL TART 25 MG TABLET PO SCH ×2 (09:03→20:26)
[2020-06-12] MEDS: BENZTROPINE 0.5 MG TAB PO SCH ×2 (09:03→20:25)
[2020-06-12] MEDS: DONEPEZIL 5 MG TAB PO SCH (09:03)
[2020-06-12] MEDS: LORazepam 1 MG TAB PO SCH (09:03)
[2020-06-12] MEDS: MULTIVITAMINS/MINERALS THERAP 1 TAB PO SCH (09:03)
[2020-06-12] MEDS: CALCIUM/VITAMIN D 500 MG TAB PO SCH (09:03)
--- NOTE | 2020-06-12 12:51 | MHIPNPDOC ---
[facility] Progress Note Progress Note DATE OF SERVICE: 06/12/20 HISTORY: Patient is a 64 -year-old Single, Disabled, Cognitively Impaired, Domiciled , female with a diagnosis of Schizoaffective, Bipolar type who has had two recent admissions to medicine the last few weeks. She presented with confusion, syncope and reported suicidal ideations on her last medical admission and was subsequently admitted to [facility]. Patient has had several psychiatric hospitalizations, no history of suicide attempts but had been admitted to this facility for confusion. Patient sees Dr. Yi at [facility] and has been her provider for 25+ years. Dr. Yi reports that patient has chronic delusions. She had been stable for quite a long time, but is developing symptoms of Dementia. She also is cognitively impaired. Dr. Yi reports that she had seen this patient during her recent medical admission and was observed to be psychotic with delusional thinking. VITAL SIGNS: See below. CURRENT MEDICATIONS: See below. MENTAL STATUS EXAMINATION: Patient is a 64 -year-old Single, Disabled, Cognitively Impaired, Domiciled , female with a diagnosis of Schizoaffective, Bipolar type who has had two recent admissions to medicine, presented with confusion, syncope and reported suicidal ideations. Patient maintains good eye contact. Speech:, normal tone and volume, more conversant Language skills - intact Thought processes including: more linear, reality based Thought content: denies decreased depression/ anxiety "I feel good" Abstract reasoning, and computation: fair Description of associations: denies Description of abnormal or psychotic thoughts: none observed, reports no auditory or visual hallucinations. Judgment: fair Insight: fair Orientation: alert and oriented to person, place, time, and situation Recent and remote memory: impaired Attention span and concentration: good Language: improving Fund of knowledge: below average Mood: Brighter Affect: Reactive/Full DIAGNOSES: Schizoaffective Disorder, Bipolar Type Dementia Syncope History of Acute metabolic encephalopathy History of UTI Hypertension Hyponatremia Hypothyroidism Deconditioning/home safety Hands tremor History of Falls History of Back Pain ASSESSMENT: Patient is on 1:1 for high fall risks. Patient was found ambulating in the hallway with sitter. Patient is smiling in the interview, has good recall today and states "Hello" to this provider by name. She reports no current suicidality, reports one suicidal thought while in the hospital but does not r emember the thought. She reports that she feels more comfortable being discharged on Wednesday as she believes that her sister Maria Antonia has the day off and can help her in her apartment and get acclimated. She denies any depression and anxiety. Patient reports that she has a walker with wheels and that she is able to use this without any issues. MANAGEMENT PLAN: Continue all medications. Will discharge on . TIME SPENT:25 minutes. Vital Signs Vital Signs Date Time Temp Pulse Resp B/P (MAP) Pulse Ox O2 Delivery O2 Flow Rate FiO2 06/12/20 09:03 88 164/72 06/12/20 06:00 98.6 18 97 06/09/20 17:04 Room Air Current Medications Current Medications Medications (Trade) Dose Ordered Sig/Dev Route PRN Reason Start Time Stop Time Status Last Admin Dose Admin Acetaminophen (Tylenol Tab) 650 mg Q6HP PRN PO HEADACHE or DISCOMFORT 06/05/20 16:00 Al Hydrox/Mg Hydrox/Simethicone (Mylanta) 30 ml Q4HP PRN PO HEARTBURN/INDIGESTION 06/05/20 16:00 Benztropine Mesylate (Cogentin) 0.5 mg BID PO 06/06/20 21:00 06/12/20 09:03 Calcium Carbonate (Oscal) 500 mg DAILY PO 06/07/20 09:00 06/11/20 09:26 DC 06/11/20 08:51 Calcium/Vitamin D (Oscal D) 500 mg DAILY PO 06/07/20 09:00 06/12/20 09:03 Clonazepam (KlonoPIN) 1 mg BID PO 06/06/20 21:00 06/06/20 15:25 DC Clonazepam (KlonoPIN) 1 mg Q4H PRN PO ANXIETY 06/06/20 13:50 06/06/20 15:25 DC Donepezil HCl (AriCEPT) 10 mg DAILY PO 06/07/20 09:00 06/12/20 09:03 Home Med (Med Rec Complete!) ASDIRECTED XX 06/06/20 11:40 06/06/20 11:49 DC Levothyroxine Sodium (Synthroid) 50 mcg DAILY@0600 PO 06/07/20 06:00 06/12/20 06:07 Lisinopril (Prinivil) 20 mg DAILY PO 06/07/20 09:00 06/12/20 09:03 Lorazepam (Ativan) 1 mg DAILY PO 06/10/20 09:00 06/12/20 09:03 Lorazepam (Ativan) 1 mg STAT STAT IM 06/07/20 10:57 06/07/20 11:01 DC 06/07/20 11:34 Lorazepam (Ativan) 1 mg STAT STAT IM 06/08/20 14:56 06/08/20 15:02 DC 06/08/20 15:21 Magnesium Hydroxide (Milk Of Magnesia) 30 ml DAILYPRN PRN PO CONSTIPATION 06/05/20 16:00 Metoprolol Tartrate (Lopressor) 25 mg BID PO 06/06/20 21:00 06/12/20 09:03 Multivitamins (Theragram-M) 1 tab DAILY PO 06/07/20 09:00 06/12/20 09:03 Nitrofurantoin Monoh/Nitrofur Macro (Macrobid) 100 mg BID PO 06/06/20 21:00 06/10/20 09:51 DC 06/09/20 21:27 Ondansetron HCl (Zofran) 4 mg BIDP PRN PO NAUSEA 06/07/20 17:55 Risperidone (RisperDAL) 1 mg QAM PO 06/07/20 09:00 06/07/20 11:01 DC Risperidone (RisperDAL) 2 mg QHS PO 06/06/20 21:00 06/11/20 20:34 Tizanidine HCl (Zanaflex) 2 mg BID PO 06/06/20 21:00 06/06/20 15:25 DC Trazodone HCl (Desyrel) 50 mg QHS PO 06/06/20 21:00 06/06/20 14:00 DC Trazodone HCl (Desyrel) 50 mg QHSP PRN PO INSOMNIA 06/05/20 16:00 06/11/20 20:33 Allergies Coded Allergies: No Known Allergies (Verified , 01/25/18) TEO BARRERA [employer] LEAD Jun 12, 2020 11:41
[2020-06-12 18:11] VITALS: BP 140/81
[2020-06-12] MEDS: risperiDONE 2 MG TAB PO SCH (20:25)
[2020-06-12] MEDS: traZODone 50 MG TAB PO PRN (23:25)
[2020-06-12] MEDS ORDERED: QUEtiapine FUMARATE 50MG TAB PO ONE (23:30)
[2020-06-13] MEDS: LEVOTHYROXINE 50MCG TABLET (0.05MG) PO SCH (06:00)
[2020-06-13 06:34] VITALS: BP 141/97
[2020-06-13] MEDS: LORazepam 1 MG TAB PO SCH (09:46)
[2020-06-13] MEDS: CALCIUM/VITAMIN D 500 MG TAB PO SCH (09:47)
[2020-06-13] MEDS: BENZTROPINE 0.5 MG TAB PO SCH ×2 (09:47→21:19)
[2020-06-13] MEDS: DONEPEZIL 5 MG TAB PO SCH (09:47)
[2020-06-13] MEDS: MULTIVITAMINS/MINERALS THERAP 1 TAB PO SCH (09:47)
[2020-06-13] MEDS: METOPROLOL TART 25 MG TABLET PO SCH ×2 (09:47→21:18)
--- NOTE | 2020-06-13 14:06 | MHIPNPDOC ---
[facility] Progress Note Progress Note DATE OF SERVICE: 06/13/20 Patient is a 64 -year-old Single, Disabled, Cognitively Impaired, Domiciled , female with a diagnosis of Schizoaffective, Bipolar type who has had two recent admissions to medicine the last few weeks. She presented with confusion, syncope and reported suicidal ideations on her last medical admission and was subsequently admitted to [facility]. Patient has had several psychiatric hospitalizations, no history of suicide attempts but had been admitted to this facility for confusion. Patient sees Dr. Yi at [facility] and has been her provider for 25+ years. Dr. Yi reports that patient has chronic delusions. She had been stable for quite a long time, but is developing symptoms of Dementia. She also is cognitively impaired. Dr. Yi reports th at she had seen this patient during her recent medical admission and was observed to be psychotic with delusional thinking. VITAL SIGNS: See below. CURRENT MEDICATIONS: See below. MENTAL STATUS EXAMINATION: Patient is a 64 -year-old Single, Disabled, Cognitively Impaired, Domiciled , female with a diagnosis of Schizoaffective, Bipolar type who has had two recent admissions to medicine, presented with confusion, syncope and reported suicidal ideations. Patient maintains good eye contact. Speech:, normal tone and volume, more conversant Language skills - intact Thought processes including: linear, reality based Thought content: denies decreased depression/ anxiety "I feel pretty good" Abstract reasoning, and computation: fair Description of associations: denies Description of abnormal or psychotic thoughts: none observed, reports no auditory or visual hallucinations. Judgment: fair Insight: fair Orientation: alert and oriented to person, place, time, and situation Recent and remote memory: impaired Attention span and concentration: good Language: improving Fund of knowledge: below average Mood: euthymic Affect: euthymic DIAGNOSES: Schizoaffective Disorder, Bipolar Type Dementia Syncope History of Acute metabolic encephalopathy History of UTI Hypertension Hyponatremia Hypothyroidism Deconditioning/home safety Hands tremor History of Falls History of Back Pain ASSESSMENT: Patient smiles on approach, reports being ready for discharge tomorrow, Denies any continued suicidality, states that she made the statement "I may actually have to hurt myself" while on medicine but states she doesn't know the circumstances that had occurred that prompted her statement. Due to patient's initial altered mental status for a few hours and high fall risk, treatment team felt it necessary that patient had a family member on the receiving end of her discharge as patient has been in the hospital since May 31 with reported diagnosis of early dementia. Patient appears to be doing fairly well, her family may have to consider more services for her. Patient has an aide that assists her, but she cannot remember how often this is. Patient has been on 1:1 for fall risks, attending groups and she has been more engaged in the individual sessions the last two days. she denies moderate to severe depression. Reports mild anxiety about going home. Denies auditory or visual hallucinations. Two night ago it was reported that she had internal stimuli and was talking to her sister while in bed. Since then there have been no observations of abnormal psychiatric symptoms. MANAGEMENT PLAN: Continue all medications. Will discharge tomorrow. TIME SPENT:25 minutes. Vital Signs Vital Signs Date Time Temp Pulse Resp B/P (MAP) Pulse Ox O2 Delivery O2 Flow Rate FiO2 06/13/20 06:34 98.1 84 20 141/97 (112) 95 Room Air Current Medications Current Medications Medications (Trade) Dose Ordered Sig/Dev Route PRN Reason Start Time Stop Time Status Last Admin Dose Admin Acetaminophen (Tylenol Tab) 650 mg Q6HP PRN PO HEADACHE or DISCOMFORT 06/05/20 16:00 Al Hydrox/Mg Hydrox/Simethicone (Mylanta) 30 ml Q4HP PRN PO HEARTBURN/INDIGESTION 06/05/20 16:00 Benztropine Mesylate (Cogentin) 0.5 mg BID PO 06/06/20 21:00 06/13/20 09:47 Calcium Carbonate (Oscal) 500 mg DAILY PO 06/07/20 09:00 06/11/20 09:26 DC 06/11/20 08:51 Calcium/Vitamin D (Oscal D) 500 mg DAILY PO 06/07/20 09:00 06/13/20 09:47 Clonazepam (KlonoPIN) 1 mg BID PO 06/06/20 21:00 06/06/20 15:25 DC Clonazepam (KlonoPIN) 1 mg Q4H PRN PO ANXIETY 06/06/20 13:50 06/06/20 15:25 DC Donepezil HCl (AriCEPT) 10 mg DAILY PO 06/07/20 09:00 06/13/20 09:47 Home Med (Med Rec Complete!) ASDIRECTED XX 06/06/20 11:40 06/06/20 11:49 DC Levothyroxine Sodium (Synthroid) 50 mcg DAILY@0600 PO 06/07/20 06:00 06/13/20 06:00 Lisinopril (Prinivil) 20 mg DAILY PO 06/07/20 09:00 06/13/20 09:46 Lorazepam (Ativan) 1 mg DAILY PO 06/10/20 09:00 06/13/20 09:46 Lorazepam (Ativan) 1 mg STAT STAT IM 06/07/20 10:57 06/07/20 11:01 DC 06/07/20 11:34 Lorazepam (Ativan) 1 mg STAT STAT IM 06/08/20 14:56 06/08/20 15:02 DC 06/08/20 15:21 Magnesium Hydroxide (Milk Of Magnesia) 30 ml DAILYPRN PRN PO CONSTIPATION 06/05/20 16:00 Metoprolol Tartrate (Lopressor) 25 mg BID PO 06/06/20 21:00 06/13/20 09:47 Multivitamins (Theragram-M) 1 tab DAILY PO 06/07/20 09:00 06/13/20 09:47 Nitrofurantoin Monoh/Nitrofur Macro (Macrobid) 100 mg BID PO 06/06/20 21:00 06/10/20 09:51 DC 06/09/20 21:27 Ondansetron HCl (Zofran) 4 mg BIDP PRN PO NAUSEA 06/07/20 17:55 Risperidone (RisperDAL) 1 mg QAM PO 06/07/20 09:00 06/07/20 11:01 DC Risperidone (RisperDAL) 2 mg QHS PO 06/06/20 21:00 06/12/20 20:25 Tizanidine HCl (Zanaflex) 2 mg BID PO 06/06/20 21:00 06/06/20 15:25 DC Trazodone HCl (Desyrel) 50 mg QHS PO 06/06/20 21:00 06/06/20 14:00 DC Trazodone HCl (Desyrel) 50 mg QHSP PRN PO INSOMNIA 06/05/20 16:00 06/12/20 23:25 Allergies Coded Allergies: No Known Allergies (Verified , 01/25/18) TEO BARRERA NP Jun 13, 2020 13:58
[2020-06-13 16:30] VITALS: BP 121/77
[2020-06-13] MEDS: ACETAMINOPHEN TAB 650MG DOSE (2X325MG) PO PRN (19:05)
[2020-06-13] MEDS: risperiDONE 2 MG TAB PO SCH (21:19)
[2020-06-13] MEDS: traZODone 50 MG TAB PO PRN (21:19)
[2020-06-14] MEDS: LEVOTHYROXINE 50MCG TABLET (0.05MG) PO SCH (06:28)
[2020-06-14 06:48] VITALS: BP 121/74
[2020-06-14] MEDS: BENZTROPINE 0.5 MG TAB PO SCH ×2 (09:24→20:49)
[2020-06-14] MEDS: CALCIUM/VITAMIN D 500 MG TAB PO SCH (09:24)
[2020-06-14] MEDS: MULTIVITAMINS/MINERALS THERAP 1 TAB PO SCH (09:24)
[2020-06-14] MEDS: LORazepam 1 MG TAB PO SCH (09:24)
[2020-06-14] MEDS: METOPROLOL TART 25 MG TABLET PO SCH ×2 (09:25→20:49)
[2020-06-14] MEDS: DONEPEZIL 5 MG TAB PO SCH (09:25)
[2020-06-14] MEDS: ACETAMINOPHEN TAB 650MG DOSE (2X325MG) PO PRN (10:44)
--- NOTE | 2020-06-14 12:38 | MHIPNPDOC ---
[facility] Progress Note Progress Note DATE OF SERVICE: 06/14/20 HISTORY: Patient is a 64 -year-old Single, Disabled, Cognitively Impaired, Domiciled , female with a diagnosis of Schizoaffective, Bipolar type who has had two recent admissions to medicine the last few weeks. She presented with confusion, syncope and reported suicidal ideations on her last medical admission and was subsequently admitted to [facility]. Patient has had several psychiatric hospitalizations, no history of suicide attempts but had been admitted to this facility for confusion. Patient sees Dr. Yi at [facility] and has been her provider for 25+ years. Dr. Yi reports that patient has chronic delusions. She had been stable for quite a long time, but is developing symptoms of Dementia. She also is cognitively impaired. Dr. Yi reports that she had seen this patient during her recent medical admission and was observed to be psychotic with delusional thinking. VITAL SIGNS: See below. CURRENT MEDICATIONS: See below. MENTAL STATUS EXAMINATION: Patient is a 64 -year-old Single, Disabled, Cognitively Impaired, Domiciled , female with a diagnosis of Schizoaffective, Bipolar type who has had two recent admissions to medicine, presented with confusion, syncope and reported suicidal ideations. Patient maintains intermittent eye contact. Speech:, normal tone and volume, with paucity today Language skills - intact Thought processes including: linear, reality based Thought content: reports anxiety "I don't think I can leave" Abstract reasoning, and computation: fair Description of associations: denies Description of abnormal or psychotic thoughts: none observed, reports no auditory or visual hallucinations. Judgment: fair Insight: fair Orientation: alert and oriented to person, place, time, and situation Recent and remote memory: impaired Attention span and concentration: good Language: improving Fund of knowledge: below average Mood: depression, anxiety, worry, nervousness Affect: worry, anxiety DIAGNOSES: Schizoaffective Disorder, Bipolar Type Dementia Syncope History of Acute metabolic encephalopathy History of UTI Hypertension Hyponatremia Hypothyroidism Deconditioning/home safety Hands tremor History of Falls History of Back Pain ASSESSMENT: Patient was being prepped for her discharge today and she made suicidal statement. Patient stated that if she were discharged today that she would probably attempt to kill herself. States that she would get a knife to from the kitchen. She reports being "scared, lonely and stressed" when she is at home. Her discharge was cancelled. Call to two of her sisters today. Her sister Dianna is willing to pick her up on Wednesday and have her stay with her for a few days. Her sister Shira is working on getting increased services for an Aide and possible a Home Health Aide. Reviewed with family that while she has been on the unit that she had 1:1 observations for fall risks. After the conversations on the phone patient is agreeable to go home to her sister's home on Wednesday. MANAGEMENT PLAN: Continue all medications. Will discharge Wednesday TIME SPENT:25 minutes. Vital Signs Vital Signs Date Time Temp Pulse Resp B/P (MAP) Pulse Ox O2 Delivery O2 Flow Rate FiO2 06/14/20 09:25 84 121/74 06/14/20 06:48 98.8 16 100 Room Air Current Medications Current Medications Medications (Trade) Dose Ordered Sig/Dev Route PRN Reason Start Time Stop Time Status Last Admin Dose Admin Acetaminophen (Tylenol Tab) 650 mg Q6HP PRN PO HEADACHE or DISCOMFORT 06/05/20 16:00 06/14/20 10:44 Al Hydrox/Mg Hydrox/Simethicone (Mylanta) 30 ml Q4HP PRN PO HEARTBURN/INDIGESTION 06/05/20 16:00 Benztropine Mesylate (Cogentin) 0.5 mg BID PO 06/06/20 21:00 06/14/20 09:24 Calcium Carbonate (Oscal) 500 mg DAILY PO 06/07/20 09:00 06/11/20 09:26 DC 06/11/20 08:51 Calcium/Vitamin D (Oscal D) 500 mg DAILY PO 06/07/20 09:00 06/14/20 09:24 Clonazepam (KlonoPIN) 1 mg BID PO 06/06/20 21:00 06/06/20 15:25 DC Clonazepam (KlonoPIN) 1 mg Q4H PRN PO ANXIETY 06/06/20 13:50 06/06/20 15:25 DC Donepezil HCl (AriCEPT) 10 mg DAILY PO 06/07/20 09:00 06/14/20 09:25 Home Med (Med Rec Complete!) ASDIRECTED XX 06/06/20 11:40 06/06/20 11:49 DC Levothyroxine Sodium (Synthroid) 50 mcg DAILY@0600 PO 06/07/20 06:00 06/14/20 06:28 Lisinopril (Prinivil) 20 mg DAILY PO 06/07/20 09:00 06/14/20 09:24 Lorazepam (Ativan) 1 mg DAILY PO 06/10/20 09:00 06/14/20 09:24 Lorazepam (Ativan) 1 mg STAT STAT IM 06/07/20 10:57 06/07/20 11:01 DC 06/07/20 11:34 Lorazepam (Ativan) 1 mg STAT STAT IM 06/08/20 14:56 06/08/20 15:02 DC 06/08/20 15:21 Magnesium Hydroxide (Milk Of Magnesia) 30 ml DAILYPRN PRN PO CONSTIPATION 06/05/20 16:00 Metoprolol Tartrate (Lopressor) 25 mg BID PO 06/06/20 21:00 06/14/20 09:25 Multivitamins (Theragram-M) 1 tab DAILY PO 06/07/20 09:00 06/14/20 09:24 Nitrofurantoin Monoh/Nitrofur Macro (Macrobid) 100 mg BID PO 06/06/20 21:00 06/10/20 09:51 DC 06/09/20 21:27 Ondansetron HCl (Zofran) 4 mg BIDP PRN PO NAUSEA 06/07/20 17:55 Risperidone (RisperDAL) 1 mg QAM PO 06/07/20 09:00 06/07/20 11:01 DC Risperidone (RisperDAL) 2 mg QHS PO 06/06/20 21:00 06/13/20 21:19 Tizanidine HCl (Zanaflex) 2 mg BID PO 06/06/20 21:00 06/06/20 15:25 DC Trazodone HCl (Desyrel) 50 mg QHS PO 06/06/20 21:00 06/06/20 14:00 DC Trazodone HCl (Desyrel) 50 mg QHSP PRN PO INSOMNIA 06/05/20 16:00 06/13/20 21:19 Allergies Coded Allergies: No Known Allergies (Verified , 01/25/18) TEO BARRERA NP Jun 14, 2020 12:31
--- NOTE | 2020-06-14 12:58 | MHIPN ---
[facility] PROGRESS NOTE DATE: 06/08/2020 Vital signs: Blood pressure 124/74, pulse 76, temperature 98.6. This is a video assessment, she is seen in the presence of staff. CHIEF COMPLAINT: Feels stressed. SUBJECTIVE: Seen for followup, indicates has been stressed, but again unsure, and unable to very much express herself, wonders whether she has missed her 3 month injection. I am not sure if she is on a 3 month injection, such as Invega Trinza, she was quite anxious earlier today, and was given intramuscular Ativan, which has tended to help. MENTAL STATUS EXAMINATION: She is in a wheelchair. She is cooperative. No agitation, no psychomotor retardation but at times there does seem to be a latency of response, and some of the answers given are not in context. Affect fair range. No overt suicidal thoughts or intents that can be elicited. Does not appear to be internally preoccupied at present, though delusional thinking may be under the surface. Judgment and insight are compromised. ASSESSMENT: Schizoaffective disorder. Neurocognitive disorder. PLAN: Continue current care, observations, and participation in activities as tolerated. Edited: moriah 06/14/2020 1523 MTDD
[2020-06-14 20:10] VITALS: BP 150/89
[2020-06-14] MEDS: risperiDONE 2 MG TAB PO SCH (20:49)
[2020-06-14] MEDS: traZODone 50 MG TAB PO PRN (20:49)
[2020-06-15] MEDS: zolPIDEM TARTRATE 5 MG TAB PO SCH ×2 (00:52→20:08)
[2020-06-15] MEDS: LEVOTHYROXINE 50MCG TABLET (0.05MG) PO SCH (06:12)
[2020-06-15 07:57] VITALS: BP 136/80
[2020-06-15] MEDS: DONEPEZIL 5 MG TAB PO SCH (09:03)
[2020-06-15] MEDS: CALCIUM/VITAMIN D 500 MG TAB PO SCH (09:03)
[2020-06-15] MEDS: LORazepam 1 MG TAB PO SCH (09:04)
[2020-06-15] MEDS: BENZTROPINE 0.5 MG TAB PO SCH ×2 (09:04→20:08)
[2020-06-15] MEDS: MULTIVITAMINS/MINERALS THERAP 1 TAB PO SCH (09:04)
[2020-06-15] MEDS: METOPROLOL TART 25 MG TABLET PO SCH ×2 (09:05→20:08)
[2020-06-15 17:02] VITALS: BP 138/60
[2020-06-15] MEDS: risperiDONE 2 MG TAB PO SCH (20:07)
[2020-06-15] MEDS: traZODone 50 MG TAB PO PRN (20:08)
[2020-06-16] MEDS: ACETAMINOPHEN TAB 650MG DOSE (2X325MG) PO PRN (00:31)
[2020-06-16 06:00] VITALS: BP 140/80
[2020-06-16] MEDS: LEVOTHYROXINE 50MCG TABLET (0.05MG) PO SCH (06:11)
[2020-06-16] MEDS: CALCIUM/VITAMIN D 500 MG TAB PO SCH (08:39)
[2020-06-16] MEDS: LORazepam 1 MG TAB PO SCH (08:39)
[2020-06-16] MEDS: MULTIVITAMINS/MINERALS THERAP 1 TAB PO SCH (08:39)
[2020-06-16] MEDS: METOPROLOL TART 25 MG TABLET PO SCH ×2 (08:39→20:43)
[2020-06-16] MEDS: BENZTROPINE 0.5 MG TAB PO SCH ×2 (08:39→20:44)
[2020-06-16] MEDS: DONEPEZIL 5 MG TAB PO SCH (08:42)
[2020-06-16] MEDS: risperiDONE 2 MG TAB PO SCH (20:44)
[2020-06-16] MEDS: zolPIDEM TARTRATE 5 MG TAB PO SCH (20:44)
[2020-06-17] MEDS: LEVOTHYROXINE 50MCG TABLET (0.05MG) PO SCH (06:04)
[2020-06-17 06:47] VITALS: BP 117/59
[2020-06-17 08:32] VITALS: BP 138/61
[2020-06-17] MEDS: METOPROLOL TART 25 MG TABLET PO SCH (08:32)
[2020-06-17] MEDS: CALCIUM/VITAMIN D 500 MG TAB PO SCH (08:32)
[2020-06-17] MEDS: MULTIVITAMINS/MINERALS THERAP 1 TAB PO SCH (08:33)
[2020-06-17] MEDS: DONEPEZIL 5 MG TAB PO SCH (08:33)
[2020-06-17] MEDS: BENZTROPINE 0.5 MG TAB PO SCH (08:33)
[2020-06-17] MEDS: LORazepam 1 MG TAB PO SCH ×2 (08:35→08:44)
[2020-06-17] MEDS ORDERED: ARIC1TAB PO (09:47)
[2020-06-17] MEDS ORDERED: CALCD50TA PO (09:47)
[2020-06-17] MEDS ORDERED: LEVO50TA5 PO (09:47)
[2020-06-17] MEDS ORDERED: VITMTA PO (09:47)
[2020-06-17] MEDS ORDERED: METO1TAB87 PO (09:47)
[2020-06-17] MEDS ORDERED: ATIV1TAB10 PO ×2 (09:47→09:48)
[2020-06-17] MEDS ORDERED: RISP-9 PO (09:47)
[2020-06-17] MEDS ORDERED: LISI20TA33 PO (09:47)
[2020-06-17] MEDS ORDERED: TRAZ-252 PO (09:47)
[2020-06-17] MEDS ORDERED: BENZ0.5T23 PO (09:47)
--- NOTE | 2020-06-17 14:12 | MHDSPDOC ---
[facility] Discharge Summary Discharge Summary DATE OF ADMISSION: Jun 05, 2020 at 15:47 DATE OF DISCHARGE: Jun 17, 2020 at 11:30 DISCHARGE DIAGNOSES: Schizoaffective Disorder, Bipolar Type Neurocognitive Disorder REASON FOR ADMISSION: Patient is a 64 -year-old Single, Disabled, Cognitively Impaired, Domiciled , female with a diagnosis of Schizoaffective, Bipolar type who has had two recent admissions to medicine the last few weeks. She presented with confusion, syncope and reported suicidal ideations on her last medical admission and was subsequently admitted to [facility]. Patient has had several psychiatric hospitalizations, no history of suicide attempts but had been admitted to this facility for confusion. Patient sees Dr. Yi at [facility] and has been her provider for 25+ years. Dr. Yi reports that patient has chronic delusions. She had been stable for quite a long time, but is developing symptoms of Dementia. She also is cognitively impaired. Dr. Yi reports that she had seen this patient during her recent medical admission and was observed to be psychotic with delusional thinking. CONSULTANTS INVOLVED: See Medical H + P by Hospitalist TREATMENT AND PROGRESS ON THE UNIT: Patient was admitted to the [facility] on a 9.39 legal status he was afforded the following treatment modalities: 1) Individual Therapy 2) Group Therapy 3) Medication Management 4) Milieu Therapy 5) Safe Environment HOSPITAL COURSE: Patient was admitted to [facility] on a 9.39 legal status. She was restarted on her medications from the medical floor. When she initially was seen patient had impoverished speech and was withdrawn and guarded on day 2 she appeared to be cognitively impaired - she was unable to stand/ambulate, feed herself . Ativan 1 mg was given to patient but it was a one time order and she appeared to be much better and over the first weekend she had a decline in her cognition, motor skills and her communication. Ativan was reinstated and patient improved. Patient was on 1:1 observations for fall risk. Patient continued to improve during her hospitalization and her discharge was scheduled for Wednesday and patient reported that she was unable to leave, because she did not feel that she could be discharged today that she would probably attempt to kill herself. States that she would get a knife to from the kitchen. Wednesday's discharge was delayed today. This morning patient made a statement of self harm to the staff when asked if she was ready for discharge. In evaluation today, patient continued to have fear about being discharged today. When she was reminded that she was not returning to her apartment but was going to her sister Maria Antonia's house for a few days, patient was relieved and stated, "I hope it's not too late to go today." Patient is being discharged today, she has a 2nd COVID shot scheduled tomorrow at [facility] . Patient's Ativan was reduced to 0.5 mg daily at discharge. She is reported to be getting Trinza vs Invega Sustenna, this is still unclear but patient is not due for this during this hospitalization. Patient is seen by Dr. Yi who is aware of patient's admission to inpatient. DISCHARGE ASSESSMENT: In today's interview, patient is alert and oriented, pts dress is appropriate. Hygiene and grooming is well-kempt. Smiles on approach and is pleasant and engaged in the interview. Denies depression and anxiety. Denies suicidal and homicidal ideation, planning or intent. Denies and is not observed with vicky, psychotic symptoms of delusions, bizarre thinking, obsessions, paranoia, ruminations illogical thoughts, flight of ideas or having poor insight and judgement. Patient has normal mentation, declines further hospitalization on a voluntary status and meets criteria for discharge today. Patient encouraged to return to hospital if his symptoms worsen or change and encouraged to call unit if he/she/they needs to speak to provider for questions regarding medications or care. MENTAL STATUS EXAMINATION ON DISCHARGE: Patient is a 64 -year-old Single, Disabled, Cognitively Impaired, Domiciled , female with a diagnosis of Schizoaffective, Bipolar type who has had two recent admissions to medicine the last few weeks and on her last admission she made suicidal statements and was observed to be psychotic. At discharge patient was alert and oriented, no reports of suicidality and no observations of psychotic symptoms. Speech: Is slow rate, tone and volume Language skills are intact Thought processes including: linear and goal oriented Thought content: denies depression and reports moderate anxiety. Initially reported suicidality this morning but currently denies suicidal/homicidal ideation, planning or intent. Abstract reasoning, and computation: fair Description of associations: denies, none observed Description of abnormal or psychotic thoughts: denies, none observed. Judgment: fair Insight: fair Orientation: alert and oriented to person, place, time and situation Recent and remote memory: short term memory is impaired Attention span and concentration: good Language: expansive Fund of knowledge: below average Mood: Euthymic Mood Affect: constricted MEDICATIONS ON DISCHARGE: See Medication Reconciliation PLAN/FOLLOWUP ARRANGEMENTS: Patient is discharged to her sister's house and is staying with her sister for a few days. Have requested patient be seen by Home Health Agency to review for any additional services that she may require. She is following up with [facility] and sees Dr. Yi The amount of time spent in the coordination of care for this patient was approximately 25 minutes. ETOH/Disorder Med Rx ETOH/DRUG DISORDER RX: N/A Vital Signs/I&Os Vital Signs Date Time Temp Pulse Resp B/P (MAP) Pulse Ox O2 Delivery O2 Flow Rate FiO2 06/17/20 08:32 106 138/61 06/17/20 06:47 99.4 18 94 Room Air Medications Scheduled Benztropine Mesylate (Benztropine Mesylate) 0.5 Mg Tablet, 0.5 MG PO BID for EPS, #14 Calcium/Vitamin D (Calcium 500-Vit D3 200 Tablet) 1 Each Tablet, 500 MG PO DAILY for Vitamin Replacement, #7 Donepezil HCl (Aricept) 5 Mg Tablet, 10 MG PO DAILY for Dementia/Memory, #7 Levothyroxine Sodium (Levothyroxine Sodium) 50 Mcg Tablet, 50 MCG PO DAILY@0600 for Thyroid Replacement, #7 Lisinopril (Lisinopril) 20 Mg Tablet, 20 MG PO DAILY for Blood Pressure, #7 Metoprolol Tartrate (Metoprolol Tartrate) 25 Mg Tablet, 25 MG PO BID for Blood Pressure, #14 Multivitamins (Thera M Plus Tablet) 1 Each Tablet, 1 TAB PO DAILY for Vitamin Replacement, #7 Paliperidone Palmitate (Invega Sustenna) 234 Mg/1.5 Ml Inj, 234 MG IM [id number], (Reported) Risperidone (Risperidone) 2 Mg Tablet, 2 MG PO QHS for Antipsychotic, #7 Scheduled PRN Lorazepam (Ativan) 0.5 Mg Tablet, 0.5 MG PO DAILY PRN for anxiety, #7 Trazodone HCl (Trazodone HCl) 50 Mg Tablet, 50 MG PO QHSP PRN for INSOMNIA, #7 Allergies Coded Allergies: No Known Allergies (Verified , 01/25/18) TEO BARRERA NP Jun 17, 2020 14:11
== END 2020-06-17 11:30 | disposition home or self-care (01) | DRG 885 ==
LOC: M ED INP 15:47 → M PSY 20:13
PROVIDERS: ADMIT Psychiatry & Neurology Psychiatry; ATTEND Psychiatry & Neurology Psychiatry
DX: F25.0 Schizoaffective disorder, bipolar type (principal); E87.1 Hypo-osmolality and hyponatremia; G93.40 Encephalopathy, unspecified; R45.851 Suicidal ideations; R41.0 Disorientation, unspecified; R55 Syncope and collapse; F03.90 Unspecified dementia, unspecified severity, without behavioral disturbance, psychotic disturbance, mood disturbance, and anxiety; Z87.440 Personal history of urinary (tract) infections; I10 Essential (primary) hypertension; E03.9 Hypothyroidism, unspecified; Z72.3 Lack of physical exercise; Z91.81 History of falling; R25.1 Tremor, unspecified; M54.9 Dorsalgia, unspecified; Z79.899 Other long term (current) drug therapy

== ENCOUNTER 2020-07-01 21:36 | Inpatient (IN) | payer OTHER, MEDICAID, MEDICARE ==
[~2020-07-01] VITALS: Ht 142.2 cm; Wt 70.8 kg
[~2020-07-01 21:36] MED LIST changes: +ARIC1TAB PO; +ATIV1TAB10 PO; +CALCD50TA PO; +LEVO50TA5 PO
[2020-07-01 22:42] LABS: BASO % 0.4 % (0.0-1.0); EOS # 0.1 10^3/uL (0.0-0.5); HEMATOCRIT 38.3 % (36.0-47.0); HEMOGLOBIN 12.4 g/dl (12.0-15.5); LYMPH % 26.6 % (24.0-44.0); MEAN CORPUSCULAR HEMOGLOBIN 30.2 pg (27.0-33.0); MEAN CORPUSCULAR HGB CONC 32.4 g/dl (32.0-36.5); MEAN CORPUSCULAR VOLUME 93.2 fl (80.0-96.0); MONO # 0.8 10^3/uL (0.0-0.8); MONO % 10.8 % (2.0-8.0); NEUTROPHILS # 4.5 10^3/uL (1.5-8.5); NEUTROPHILS % 61.1 % (36.0-66.0); PLATELET COUNT, AUTOMATED 287 10^3/uL (150-450); RED BLOOD COUNT 4.11 10^6/uL (4.00-5.40); WHITE BLOOD COUNT 7.3 10^3/uL (4.0-10.0)
--- NOTE | 2020-07-01 22:59 | REPVR ---
PROCEDURE INFORMATION: Exam: XR Chest Exam date and time: 07/01/2020 10:27 PM Age: 65 years old Clinical indication: Screening exam; Other screening; Additional info: Alteration of mental status TECHNIQUE: Imaging protocol: XR of the chest. Views: 1 view. COMPARISON: MD PORTABLE CHEST X-RAY 05/31/2020 1:44 PM FINDINGS: Lungs: Unremarkable. No consolidation. Pleural spaces: Unremarkable. No pleural effusion. No pneumothorax. Heart/Mediastinum: Unremarkable. No cardiomegaly. Bones/joints: There is sclerosis and deformity of the right humeral head which may be due to old trauma or avascular necrosis. No acute fracture. IMPRESSION: No acute findings Electronically signed by: Dario Garcia On 07/01/2020 22:59:27 PM
[2020-07-01 23:22] LABS: ALBUMIN 3.6 GM/DL (3.2-5.2); ALT/SGPT 28 U/L (12-78); BILIRUBIN,DIRECT < 0.1 MG/DL (0.0-0.2); BILIRUBIN,TOTAL 0.3 MG/DL (0.2-1.0); BLOOD UREA NITROGEN 14 MG/DL (7-18); CALCIUM LEVEL 9.3 MG/DL (8.8-10.2); CARBON DIOXIDE LEVEL 31 MEQ/L (21-32); CHLORIDE LEVEL 100 MEQ/L (98-107); CK-MB VALUE MASS 1.9 NG/ML (<3.6); CPK CREATINE PHOSPHOKINASE 187 U/L (26-192); CREATININE FOR GFR 0.71 MG/DL (0.55-1.30); GLOMERULAR FILTRATION RATE > 60.0 (>45); GLUCOSE, FASTING 91 MG/DL (70-100); MB/CK RELATIVE INDEX 1.02 (< OR =4); POTASSIUM SERUM 5.2 MEQ/L (3.5-5.1); SODIUM LEVEL 136 MEQ/L (136-145); TOTAL PROTEIN 6.7 GM/DL (6.4-8.2); TROPONIN I < 0.02 NG/ML (< 0.10)
[2020-07-02 01:29] LABS: AMPHETAMINES LEVEL URINE NEGATIVE (NEGATIVE); BARBITURATES URINE NEGATIVE (NEGATIVE); BENZODIAZEPINES URINE NEGATIVE (NEGATIVE); CANNABINOIDS URINE NEGATIVE (NEGATIVE); COCAINE METABOLITE URINE NEGATIVE (NEGATIVE); METHADONE URINE NEGATIVE (NEGATIVE); OPIATES URINE NEGATIVE (NEGATIVE); PHENCYCLIDINE URINE NEGATIVE (NEGATIVE)
[2020-07-02] MEDS ORDERED: LevoFLOXacin IV 500 MG in IV 1 EA IV ONE (02:35)
[2020-07-02] MEDS ORDERED: BACTRIM 160MG/800MG DS TAB PO ONE (02:45)
[2020-07-02] MEDS ORDERED: LISI20TA33 PO (04:22)
[2020-07-02] MEDS ORDERED: OYST500T92 PO (04:22)
[2020-07-02] MEDS ORDERED: TRAZ-252 PO (04:22)
[2020-07-02] MEDS ORDERED: RISP-9 PO (04:22)
[2020-07-02] MEDS ORDERED: METO25TA4 PO (04:22)
[2020-07-02] MEDS ORDERED: BENZ0.5T23 PO (04:22)
[2020-07-02] MEDS ORDERED: DONE10TA90 PO (04:22)
[2020-07-02] MEDS ORDERED: INVE1.75 IM (04:22)
[2020-07-02] MEDS ORDERED: VITMTA PO (04:22)
[2020-07-02] MEDS ORDERED: VENL75CA47 PO (04:22)
[2020-07-02] MEDS ORDERED: SYNT50TA PO (04:22)
[2020-07-02] MEDS ORDERED: CLON0.5T2 PO (04:22)
[2020-07-02] MEDS ORDERED: PATIENT COMMENT (04:25)
[2020-07-02] MEDS ORDERED: ACETAMINOPHEN TAB 650MG DOSE (2X325MG) PO PRN (04:45)
--- NOTE | 2020-07-02 05:23 | HPEPDOC ---
[facility] Medical History & Physical Date of Admission Jul 02, 2020 Date of Service: Jul 02, 2020 Attending Physician: ANISH PAINTER MD History and Physical CHIEF COMPLAINT: Altered mental status HISTORY OF PRESENT ILLNESS: Patient is a 65-year-old female who presented to the emergency room via EMS for making odd statements. Patient does have a history of bipolar disorder, schizophrenia, and dementia. Patient was discharged recently with a plan to be taken care of by her sister if she is not able to take care of herself. Patient somehow made it to living on her own again and called EMS today making odd statements. Patient was making odd statements including suicidal ideations when EMS arrived. They brought her to the emergency department. Patient does not complain of any pain. Patient states that she was here "in memory of her own " patient will be admitted to the hospital. REVIEW OF SYSTEMS: Full review of systems was unobtainable due to the patient's inappropriate answering questions however, the patient denied having any pain. Patient did report pain with urination although she says this is been her whole life PAST MEDICAL HISTORY: 1. Schizoaffective disorder. 2. Bipolar. 3. Alzheimer's disease. 4. Hypertension 5. Hypothyroidism 6. Ductal carcinoma in situ 7. Asthma 8. Osteoporosis PAST SURGICAL HISTORY: 1. Left breast biopsy and lumpectomy. SOCIAL HISTORY: Per review of prior records, patient lives alone with her cat and denies smoking or drinking FAMILY HISTORY: Upon review of prior records it appears her father had a history of dementia and hypertension and at 99 years old and patient's mother at 88 years old. ALLERGIES: Please see below. HOME MEDICATIONS: Please see below. PHYSICAL EXAMINATION: VITAL SIGNS: Temperature 98.8, pulse 84, respiratory rate 16, blood pressure 156/93, pulse oximetry 100% on room air. General: Alert and oriented to person and place and month but not the year female who was laying on her side on the stretcher when I walked in the room. Patient was not answering questions appropriately in Saying that she was here to remember her own . Patient does not appear to be in any acute distress. HEENT: Normocephalic, atraumatic, moist mucous membranes. Neck: No lymphadenopathy or thyromegaly Cardiac: Regular rate and rhythm, no murmurs, normal S1, normal S2 Pulm: Clear to auscultation bilaterally. No wheezes, rhonchi, rales Abd: Nondistended, nontender to palpation, normal bowel sounds Ext: No edema bilateral lower extremities LABS IMAGING: A chest x-ray performed on 07/01/2020 was reported to show no acute findings. MICROBIOLOGY: Please see below. ASSESSMENT: Patient is a 65-year-old female past history of bipolar disorder, schizoaffective disorder, and dementia who presented to the emergency department after making odd statements to EMS including possible suicidal ideation who was found have a urinary tract infection. . PLAN: 1. Sucidal Ideation / Altered mental status. Patient does not appear to be at her baseline. In speaking with some of the nursing staff who know the patient, patient has appeared to deteriorate. Patient statements do not make any sense when asking her questions. She is not answering questions appropriately. In talking with nursing staff as well as the patient's sister who apparently has guardianship over her, patient is no longer able to care for herself. At the last hospitalization, the patient was supposed to be discharged under the care of her sister however, somehow made it to living on her own again. This did not last very long before she presented to the emergency department yesterday. Patient will most likely need placement. PFS has been consulted. 2. Urinary tract infection. Patient's urinary analysis appears to show an urinary tract infection. Patient will be given Macrobid for 5 days. Patient did have a urinary tract infection that grew out pansensitive Escherichia coli at the end of May 2020. 3. Hypertension. We'll continue with her home medications 4. Schizoaffective disorder we will continue with the patient's home medication. Psychiatry can be consulted once patient is medically clear. Sitter has been ordered. 5. DVT prophylaxis: Lovenox 6. CODE STATUS: As we do not have any advanced directives on the patient and the patient is unable to make decisions for herself at this time, patient will be a full code. Disposition: Pending Psych eval for SI, the atient will most likely require p lacement. Vital Signs Vital Signs Date Time Temp Pulse Resp B/P (MAP) Pulse Ox O2 Delivery O2 Flow Rate FiO2 07/02/20 04:00 84 16 156/93 (114) 100 07/02/20 03:07 98.8 07/01/20 23:20 Room Air Laboratory Data Labs 24H Laboratory Tests 2 07/01/20 22:30: Immature Granulocyte % (Auto) 0.1, Neutrophils (%) (Auto) 61.1, Lymphocytes (%) (Auto) 26.6, Monocytes (%) (Auto) 10.8H, Eosinophils (%) (Auto) 1.0, Basophils (%) (Auto) 0.4, Neutrophils # (Auto) 4.5, Lymphocytes # (Auto) 2.0, Monocytes # (Auto) 0.8, Eosinophils # (Auto) 0.1, Basophils # (Auto) 0.0, Nucleated Red Blood Cells % (auto) 0.0, Anion Gap 5L, Glomerular Filtration Rate > 60.0, Calcium Level 9.3, Total Bilirubin 0.3, Direct Bilirubin < 0.1, Aspartate Amino Transf (AST/SGOT) 36, Alanine Aminotransferase (ALT/SGPT) 28, Alkaline Phosphatase 73, Total Creatine Kinase 187, Creatine Kinase MB 1.9, Creatine Kinase MB Relative Index 1.02, Troponin I < 0.02, Total Protein 6.7, Albumin 3.6, Albumin/Globulin Ratio 1.2, Thyroid Stimulating Hormone (TSH) 2.630 07/02/20 00:03: Urine Color YELLOW, Urine Appearance CLOUDYH, Urine pH 6.0, Urine Specific [place] 1.011, Urine Protein NEGATIVE, Urine Glucose (UA) NEGATIVE, Urine Ketones NEGATIVE, Urine Blood NEGATIVE, Urine Nitrite POSITIVEH, Urine Bilirubin NEGATIVE, Urine Urobilinogen 0.2, Urine Leukocyte Esterase 3+H, Urine WBC (Auto) TNTCH, Urine RBC (Auto) 7H, Urine Hyaline Casts (Auto) 0, Urine Bacteria (Auto) 2+H, Urine Squamous Epithelial Cells 0, Urine Sperm (Auto) , Urine Opiates Screen NEGATIVE, Urine Methadone Screen NEGATIVE, Urine Barbiturates Screen NEGATIVE, Urine Phencyclidine Screen NEGATIVE, Urine Amphetamines Screen NEGA TIVE, Urine Benzodiazepines Screen NEGATIVE, Urine Cocaine Metabolite Screen NEGATIVE, Urine Cannabinoids Screen NEGATIVE CBC/BMP Laboratory Tests 07/01/20 22:30 Microbiology Microbiology 07/02/20 Urine Culture, Received Pending Home Medications Scheduled Benztropine Mesylate (Benztropine Mesylate) 0.5 Mg Tablet, 0.5 MG PO BID Calcium Carbonate/Vitamin D3 (Calcium 500-Vit D3 200 Tablet) 1 Each Tablet, 1 TAB PO DAILY Clonazepam (Clonazepam) 0.5 Mg Tablet, 0.5 MG PO BID Donepezil HCl (Donepezil HCl) 10 Mg Tablet, 10 MG PO QHS Levothyroxine Sodium (Synthroid) 50 Mcg Tablet, 50 MCG PO DAILY Lisinopril (Lisinopril) 20 Mg Tablet, 20 MG PO DAILY Metoprolol Tartrate (Metoprolol Tartrate) 25 Mg Tablet, 25 MG PO BID Multivitamins (Thera M Plus Tablet) 1 Each Tablet, 1 TAB PO DAILY Paliperidone Palmitate (Invega Trinza) 819 Mg/2.625 Ml Syringe, 819 MG IM Q3M Risperidone (Risperidone) 2 Mg Tablet, 2 MG PO QHS Venlafaxine HCl (Venlafaxine HCl ER) 75 Mg Cap.er.24h, 150 MG PO DAILY Scheduled PRN Trazodone HCl (Trazodone HCl) 50 Mg Tablet, 50 MG PO QHS PRN for INSOMNIA Miscellaneous Medications [Patient Comment] MED REC COMPLETED VIA EXTERNAL MED HISTORY, PRIOR DISCHARGE (06/17/20), PREVIOUS CLINIC VISIT (06/21/20) AND PHONE CALL WITH SISTER Allergies Coded Allergies: No Known Allergies (Verified , 01/25/18) A-FIB/CHADSVASC A-FIB History Current/History of A-Fib/PAF?: No GME ATTESTATION GME ATTESTATION My faculty preceptor for this patient encounter was physically present during the encounter and was fully available. All aspects of the patient interview, examination, medical decision making process, and medical care plan development were reviewed and approved by the faculty preceptor. The faculty preceptor is aware and concurs with the plan as stated in the body of this note and will att est to such by his/her cosignature. ATTENDING NOTE time of service 430am is a 65 yr old F w a hx of Bipolar disorder, anxiety and Alzheimers who called EMS bc she has been feeling more confused than usual; she admitted to wanting to hurt herself. The ER staff requested admission pending placement citing concerns that the patient might fall through the cracks and be discharged home. She has a 1:[address] a PFS consult to facilitate rodent exterminator placement. Rest per 's H&P NGOZI JAEEGR DO Jul 02, 2020 05:23 ANISH PAINTER MD Jul 02, 2020 06:00
[2020-07-02] MEDS: LEVOTHYROXINE 50MCG TABLET (0.05MG) PO SCH (06:14)
[2020-07-02 07:41] LABS: RSV AMPLIFICATION NEGATIVE (NEGATIVE)
[2020-07-02] MEDS: CALCIUM/VITAMIN D 500 MG TAB PO SCH (09:39)
[2020-07-02] MEDS: ENOXAPARIN 40MG/0.4ML SYRINGE (J1650 PER 10MG) SC SCH (09:39)
[2020-07-02] MEDS: BENZTROPINE 0.5 MG TAB PO SCH ×2 (09:40→21:43)
[2020-07-02] MEDS: MULTIVITAMINS/MINERALS THERAP 1 TAB PO SCH (09:40)
[2020-07-02] MEDS: NITROFURANTOIN (MACROBID) 100 MG CAP PO SCH ×2 (09:40→21:43)
[2020-07-02] MEDS: VENLAFAXINE **XR** 75MG CAPSULE PO SCH (09:40)
[2020-07-02] MEDS: METOPROLOL TART 25 MG TABLET PO SCH ×2 (09:40→21:00)
[2020-07-02 11:01] LABS: BASO % 0.4 % (0.0-1.0); EOS % 0.6 % (0.0-3.0); HEMATOCRIT 37.1 % (36.0-47.0); HEMOGLOBIN 12.3 g/dl (12.0-15.5); LYMPH # 1.1 10^3/uL (1.5-5.0); LYMPH % 21.8 % (24.0-44.0); MEAN CORPUSCULAR HEMOGLOBIN 30.5 pg (27.0-33.0); MEAN CORPUSCULAR HGB CONC 33.2 g/dl (32.0-36.5); MEAN CORPUSCULAR VOLUME 92.1 fl (80.0-96.0); MONO # 0.6 10^3/uL (0.0-0.8); NEUTROPHILS # 3.3 10^3/uL (1.5-8.5); PLATELET COUNT, AUTOMATED 273 10^3/uL (150-450); RED BLOOD COUNT 4.03 10^6/uL (4.00-5.40)
[2020-07-02 11:26] LABS: BLOOD UREA NITROGEN 13 MG/DL (7-18); CARBON DIOXIDE LEVEL 28 MEQ/L (21-32); CHLORIDE LEVEL 99 MEQ/L (98-107); CREATININE FOR GFR 0.86 MG/DL (0.55-1.30); GLOMERULAR FILTRATION RATE > 60.0 (>45); GLUCOSE, FASTING 149 MG/DL (70-100); POTASSIUM SERUM 4.4 MEQ/L (3.5-5.1); SODIUM LEVEL 134 MEQ/L (136-145)
--- NOTE | 2020-07-02 13:25 | ECGEPIP ---
[facility] - ED Test Date: 2020-07-01 Pat Name: LUZMARIA FUNES Department: Room: [place] [address] Gender: Female Global Sourcing Manager: Sean LOCKETT : 1955 Requested By: ODALIS Jacobs Order Number: [id number] Reading MD: Ken Mojica Measurements Intervals [place] Rate: 73 P: 53 GA: 130 QRS: 62 QRSD: 78 T: 25 QT: 412 QTc: 453 Interpretive Statements Normal sinus rhythm POOR R WAVE PROGRESSION SIMILAR TO 05/31/20 Electronically Signed on 07-02-2020 13:24:45 EDT by Ken Mojica
[2020-07-02] MEDS ORDERED: NS 1,000 ML IV ONE ×2 (15:30→16:10)
[2020-07-02 17:35] VITALS: BP 129/69
[2020-07-02 18:00] VITALS: O2SAT 97
--- NOTE | 2020-07-02 18:30 | IPNPDOC ---
Text Note Date of Service The patient was seen on 07/02/20. NOTE Subjective: Patient developed hypotension with blood pressure 75/40. She denies any dizziness or lightheadedness. Patient afebrile, she denied any palpitations or chest pain. Patient told me that she still having suicidal ideation. Objective: GENERAL APPEARANCE: NAD HEENT: no scleral icterus, no JVD, EOMI CARDIOVASCULAR: S1S2 LUNGS: CTA ABDOMEN: soft & not tender w palpitation MUSCULOSKELETAL: no cyanosis, no swelling INTEGUMENT: no generalized pallor NEUROLOGICAL: cranial nerve function from 2-12 intact intact, follows commands, speech not dysarthric Assessment and plan Patient is a 65-year-old female past history of bipolar disorder, schizoaffective disorder, and dementia who presented to the emergency department after she reported suicidal ideation Suicidal ideation/metabolic encephalopathy Multifactorial. Most likely patient noncompliant to her medication regimen in top of UTI Sitter Appreciate/agree with psychiatrist consult Urinary tract infection Continue nitrofurantoin Hypotension Most likely patient was dehydrated and she received lisinopril in the morning After boluses blood pressure normalized Schizoaffective disorder Continue home meds Patient will need transfer to mental health. VS,Fishbone, I+O VS, Fishbone, I+O Laboratory Tests 07/01/20 22:30 07/02/20 10:50 Vital Signs Date Time Temp Pulse Resp B/P (MAP) Pulse Ox O2 Delivery O2 Flow Rate FiO2 07/02/20 18:00 97 Room Air 07/02/20 17:28 135/73 (93) 07/02/20 17:19 71 07/02/20 16:19 98.3 18 MALISSA JONES DO Jul 02, 2020 18:30
[2020-07-02 20:00] VITALS: O2SAT 96
[2020-07-02 20:01] VITALS: BP 90/60
[2020-07-02] MEDS: risperiDONE 2 MG TAB PO SCH (21:42)
[2020-07-02] MEDS: MIRTAZAPINE 7.5MG PER 1/2 TABLET PO SCH (21:43)
[2020-07-03] VITALS (9 sets, daily range): BP systolic 121–132; BP diastolic 56–72; O2SAT 96
[2020-07-03] MEDS: LEVOTHYROXINE 50MCG TABLET (0.05MG) PO SCH (06:22)
[2020-07-03 07:51] LABS: HEMATOCRIT 37.9 % (36.0-47.0); HEMOGLOBIN 12.5 g/dl (12.0-15.5); MEAN CORPUSCULAR HEMOGLOBIN 30.7 pg (27.0-33.0); MEAN CORPUSCULAR VOLUME 93.1 fl (80.0-96.0); PLATELET COUNT, AUTOMATED 247 10^3/uL (150-450); RED BLOOD COUNT 4.07 10^6/uL (4.00-5.40); WHITE BLOOD COUNT 7.2 10^3/uL (4.0-10.0)
[2020-07-03 08:20] LABS: BLOOD UREA NITROGEN 12 MG/DL (7-18); CALCIUM LEVEL 8.9 MG/DL (8.8-10.2); CARBON DIOXIDE LEVEL 26 MEQ/L (21-32); CHLORIDE LEVEL 107 MEQ/L (98-107); CREATININE FOR GFR 0.79 MG/DL (0.55-1.30); GLOMERULAR FILTRATION RATE > 60.0 (>45); GLUCOSE, FASTING 106 MG/DL (70-100); MAGNESIUM LEVEL 2.3 MG/DL (1.8-2.4); POTASSIUM SERUM 4.6 MEQ/L (3.5-5.1); SODIUM LEVEL 138 MEQ/L (136-145)
[2020-07-03] MEDS: MULTIVITAMINS/MINERALS THERAP 1 TAB PO SCH (08:23)
[2020-07-03] MEDS: BENZTROPINE 0.5 MG TAB PO SCH ×2 (08:23→20:43)
[2020-07-03] MEDS: CALCIUM/VITAMIN D 500 MG TAB PO SCH (08:23)
[2020-07-03] MEDS: METOPROLOL TART 25 MG TABLET PO SCH ×2 (08:24→20:43)
[2020-07-03] MEDS: NITROFURANTOIN (MACROBID) 100 MG CAP PO SCH ×2 (08:24→20:43)
[2020-07-03] MEDS: VENLAFAXINE **XR** 75MG CAPSULE PO SCH (08:24)
[2020-07-03] MEDS: ENOXAPARIN 40MG/0.4ML SYRINGE (J1650 PER 10MG) SC SCH (08:24)
--- NOTE | 2020-07-03 09:11 | MHCR ---
[facility] CONSULTATION DATE: 07/02/2020 REASON FOR CONSULTATION: Psychiatric evaluation as patient expressed suicidal thoughts. IDENTIFYING DATA: She is a 65-year-old female living on her own who was admitted to the progressive care unit (PCU) for altered mental status, possible urinary tract infection. Consultation was called to evaluate her regarding suicidal thoughts. HISTORY OF PRESENT ILLNESS: Patient recently was discharged from inpatient mental health unit ([facility]) on June 19, 2020. Her diagnosis was schizoaffective disorder. She has had several psychiatric hospitalizations. She also has a history of suicide attempt in the past. Patient currently is on risperidone 2 mg at night, Cogentin 0.5 mg twice daily and Effexor 150 mg daily. Patient reports she is still depressed and has suicidal thoughts. According to the patient, she takes care of her ADLs by herself. MENTAL STATUS EXAMINATION: Casually dressed sitting in a chair. She is kept on one-to-one observation. Cooperative. Made good eye contact. Speech: Rate, rhythm, volume are good. Mood is depressed. Affect is mood congruent. Thought process: Linear and goal-directed. Thought content: She still continues to have some suicidal thoughts without plans. Insight and judgment are limited. Memory: Immediate, remote, recent are good. DIAGNOSIS: Schizoaffective disorder. PLAN: Add Remeron 7.5 mg at night and once the patient is medically stable, we will transfer her to inpatient mental health unit ([facility]).
--- NOTE | 2020-07-03 12:31 | IPNPDOC ---
Text Note Date of Service The patient was seen on 07/03/20. NOTE Subjective: No any acute events overnight. Patient denies fever, chills, nausea, diarrhea or dysuria Objective: GENERAL APPEARANCE: NAD HEENT: no scleral icterus, no JVD, EOMI CARDIOVASCULAR: S1S2 LUNGS: CTA ABDOMEN: soft & not tender w palpitation MUSCULOSKELETAL: no cyanosis, no swelling INTEGUMENT: no generalized pallor NEUROLOGICAL: cranial nerve function from 2-12 intact intact, follows commands, speech not dysarthric Assessment and plan Patient is a 65-year-old female past history of bipolar disorder, schizoaffective disorder, and dementia who presented to the emergency department after she reported suicidal ideation Suicidal ideation/metabolic encephalopathy Multifactorial. Most likely patient noncompliant to her medication regimen in top of UTI Sitter Appreciate/agree with psychiatrist consult Urinary tract infection Continue nitrofurantoin day 2 Hypotension Resolved Schizoaffective disorder Continue home meds Patient will need transfer to mental health. VS,Fishbone, I+O VS, Fishbone, I+O Laboratory Tests 07/03/20 07:31 Vital Signs Date Time Temp Pulse Resp B/P (MAP) Pulse Ox O2 Delivery O2 Flow Rate FiO2 07/03/20 12:00 98.0 65 16 128/58 (81) 93 Room Air I&O- Last 24 Hours up to 6 AM 07/03/20 05:59 Intake Total 2360 ml Output Total 1400 ml Balance 960 ml MALISSA JONES DO Jul 03, 2020 12:31
[2020-07-03] MEDS: risperiDONE 2 MG TAB PO SCH (20:43)
[2020-07-03] MEDS: MIRTAZAPINE 7.5MG PER 1/2 TABLET PO SCH (20:43)
[2020-07-04 04:00] VITALS: BP 121/72
[2020-07-04] MEDS: LEVOTHYROXINE 50MCG TABLET (0.05MG) PO SCH (05:23)
[2020-07-04 07:30] VITALS: BP 118/78
[2020-07-04] MEDS: ENOXAPARIN 40MG/0.4ML SYRINGE (J1650 PER 10MG) SC SCH (07:47)
[2020-07-04] MEDS: VENLAFAXINE **XR** 75MG CAPSULE PO SCH (07:47)
[2020-07-04] MEDS: CALCIUM/VITAMIN D 500 MG TAB PO SCH (07:47)
[2020-07-04] MEDS: MULTIVITAMINS/MINERALS THERAP 1 TAB PO SCH (07:47)
[2020-07-04] MEDS: METOPROLOL TART 25 MG TABLET PO SCH (07:57)
[2020-07-04] MEDS: NITROFURANTOIN (MACROBID) 100 MG CAP PO SCH (09:27)
[2020-07-04] MEDS: BENZTROPINE 0.5 MG TAB PO SCH (09:27)
[2020-07-04] MEDS ORDERED: NITR100C2 PO (10:54)
[2020-07-04 14:00] VITALS: BP 72/45
--- NOTE | 2020-07-04 15:53 | DS.PDOC ---
Discharge Summary General Date of Admission Jul 01, 2020 at 21:37 Date of Discharge 07/04/20 Discharge Summary PROCEDURES PERFORMED DURING STAY: [None]. ADMITTING DIAGNOSES: Urinary tract infection Suicidal ideation/metabolic encephalopathy Hypotension Schizoaffective disorder DISCHARGE DIAGNOSES: Urinary tract infection Suicidal ideation/metabolic encephalopathy Hypotension Schizoaffective disorder COMPLICATIONS/CHIEF COMPLAINT: Altered Mental Status. HISTORY OF PRESENT ILLNESS: Patient is a 65-year-old female who presented to the emergency room via EMS for making odd statements. Patient does have a history of bipolar disorder, schizophrenia, and dementia. Patient was discharged recently with a plan to be taken care of by her sister if she is not able to take care of herself. Patient somehow made it to living on her own again and called EMS today making odd statements. Patient was making odd statements including suicidal ideations when EMS arrived. They brought her to the emergency department. Patient does not complain of any pain. Patient states that she was here "in memory of her own " patient will be admitted to the hospital. HOSPITAL COURSE: During hospital stay following issue addressed Suicidal ideation/metabolic encephalopathy Multifactorial. Most likely patient noncompliant to her medication regimen in top of UTI Sitter psychiatrist recommended transfer to mental health Urinary tract infection Continue nitrofurantoin for 5 days in total Hypotension Resolved Schizoaffective disorder Continue home meds Patient will need transfer to mental health. DISCHARGE MEDICATIONS: Please see below. ALLERGIES: Please see below. PHYSICAL EXAMINATION ON DISCHARGE: VITAL SIGNS: Please see below. GENERAL APPEARANCE: NAD HEENT: no scleral icterus, no JVD, EOMI CARDIOVASCULAR: S1S2 LUNGS: CTA ABDOMEN: soft & not tender w palpitation MUSCULOSKELETAL: no cyanosis, no swelling INTEGUMENT: no generalized pallor NEUROLOGICAL: cranial nerve function from 2-12 intact intact, follows commands, speech not dysarthric LABORATORY DATA: Please see below. PROGNOSIS: Fair ACTIVITY: [As tolerated]. DIET: Cardiac DISCHARGE PLAN: Mental health unit ITEMS TO FOLLOWUP ON ON OUTPATIENT: Follow-up with psychiatrist and PCP after discharge DISCHARGE CONDITION: [Stable]. TIME SPENT ON DISCHARGE: 40minutes. Vital Signs/I&Os Vital Signs Date Time Temp Pulse Resp B/P (MAP) Pulse Ox O2 Delivery O2 Flow Rate FiO2 07/04/20 14:00 98.1 90 18 72/45 (54) 97 Room Air I&O- Last 24 Hours up to 6 AM 07/04/20 06:00 Intake Total 1175 ml Output Total 1600 ml Balance -425 ml Microbiology Microbiology 07/02/20 Blood Culture - Preliminary, Resulted No growth after 24 hours . All specim... 07/02/20 Blood Culture - Preliminary, Resulted No growth after 24 hours . All specim... 07/02/20 Urine Culture - Final, Complete Escherichia Coli Discharge Medications Scheduled Benztropine Mesylate (Benztropine Mesylate) 0.5 Mg Tablet, 0.5 MG PO BID, (Reported) Calcium Carbonate/Vitamin D3 (Calcium 500-Vit D3 200 Tablet) 1 Each Tablet, 1 TAB PO DAILY, (Reported) Clonazepam (Clonazepam) 0.5 Mg Tablet, 0.5 MG PO BID, (Reported) Donepezil HCl (Donepezil HCl) 10 Mg Tablet, 10 MG PO QHS, (Reported) Levothyroxine Sodium (Synthroid) 50 Mcg Tablet, 50 MCG PO DAILY, (Reported) Metoprolol Tartrate (Metoprolol Tartrate) 25 Mg Tablet, 25 MG PO BID, (Reported) Multivitamins (Thera M Plus Tablet) 1 Each Tablet, 1 TAB PO DAILY, (Reported) Nitrofurantoin Monohyd/M-Cryst (Nitrofurantoin [place]-Mcr 100 mg) 100 Mg Capsule, 100 MG PO BID Paliperidone Palmitate (Invega Trinza) 819 Mg/2.625 Ml Syringe, 819 MG IM Q3M, (Reported) Risperidone (Risperidone) 2 Mg Tablet, 2 MG PO QHS, (Reported) Venlafaxine HCl (Venlafaxine HCl ER) 75 Mg Cap.er.24h, 150 MG PO DAILY, (Reported) Scheduled PRN Trazodone HCl (Trazodone HCl) 50 Mg Tablet, 50 MG PO QHS PRN for INSOMNIA, (Reported) Miscellaneous Medications [Patient Comment] , (Reported) MED REC COMPLETED VIA EXTERNAL MED HISTORY, PRIOR DISCHARGE (06/17/20), PREVIOUS CLINIC VISIT (06/21/20) AND PHONE CALL WITH SISTER Allergies Coded Allergies: No Known Allergies (Verified , 01/25/18) MALISSA JONES DO Jul 04, 2020 15:53
== END 2020-07-04 15:56 | DRG 689 ==
LOC: M ED 21:36 → M ED INP 21:37 → ENRESERV 07-02 14:57 → M PCU 07-02 17:34 → OBSVTOIN 07-03 12:01 → M MSPAV 07-04 07:13
PROVIDERS: ADMIT Internal Medicine; ATTEND Internal Medicine
DX: N39.0 Urinary tract infection, site not specified (principal); G93.41 Metabolic encephalopathy; R45.851 Suicidal ideations; R41.82 Altered mental status, unspecified; F25.0 Schizoaffective disorder, bipolar type; I95.9 Hypotension, unspecified; F02.80 Dementia in other diseases classified elsewhere, unspecified severity, without behavioral disturbance, psychotic disturbance, mood disturbance, and anxiety; F31.9 Bipolar disorder, unspecified; E03.9 Hypothyroidism, unspecified; G30.9 Alzheimer's disease, unspecified; I10 Essential (primary) hypertension; J45.909 Unspecified asthma, uncomplicated; B96.20 Unspecified Escherichia coli [E. coli] as the cause of diseases classified elsewhere; M81.0 Age-related osteoporosis without current pathological fracture; Z91.5 Personal history of self-harm; Z79.899 Other long term (current) drug therapy; Z91.14 Patient's other noncompliance with medication regimen

== ENCOUNTER 2020-07-04 13:28 | Inpatient (IN) | payer OTHER, MEDICAID ==
[~2020-07-04 13:28] MED LIST changes: +INVE1.75 IM; +METO25TA4 PO; +OYST500T92 PO
[2020-07-04] MEDS ORDERED: MAALOX 30 ML SUSP *UDC PO PRN (13:55)
[2020-07-04] MEDS ORDERED: MOM 30ML SUSPENSION UDC PO PRN (13:55)
[2020-07-04 16:08] VITALS: BP 115/78
[2020-07-05] MEDS: ACETAMINOPHEN TAB 650MG DOSE (2X325MG) PO PRN ×2 (07:35→15:10)
[2020-07-05] MEDS: NITROFURANTOIN (MACROBID) 100 MG CAP PO SCH ×2 (10:21→20:24)
[2020-07-05] MEDS: BENZTROPINE 0.5 MG TAB PO SCH ×2 (11:28→20:24)
[2020-07-05] MEDS: VENLAFAXINE **XR** 75MG CAPSULE PO SCH (11:28)
--- NOTE | 2020-07-05 11:35 | HPEPDOC ---
[facility] Medical History & Physical Date of Admission Jul 04, 2020 Date of Service: Jul 05, 2020 Attending Physician: SOURAV EDWARDS MD History and Physical CHIEF COMPLAINT: Altered mental status HISTORY OF PRESENT ILLNESS: 65-year-old W with a history of bipolar disorder, schizophrenia, and dementia and recently presented to the ED via EMS after making odd statements including suicidal ideations when EMS arrived and was admitted to medicine for sepsis 2/2 pansensitive E.coli with hypotension that resolved with treatment and currently completing a course of macrobid for the UTI. She was discharged to inpatient mental health for suicidal ideation and active psychosis i/s/o medication noncompliance. Medicine is now consulted for continued medical evaluation while in the [facility]. She otherwise has no new physical complaints at this time. PAST MEDICAL HISTORY: 1. Schizoaffective disorder. 2. Bipolar. 3. Alzheimer's disease. 4. Hypertension 5. Hypothyroidism 6. Ductal carcinoma in situ 7. Asthma 8. Osteoporosis PAST SURGICAL HISTORY: 1. Left breast biopsy and lumpectomy. SOCIAL HISTORY: Per review of prior records, patient lives alone with her cat and denies smoking or drinking FAMILY HISTORY: Father had a history of dementia and hypertension and at 99 years old and patient's mother at 88 years old. ALLERGIES: Please see below. HOME MEDICATIONS: Please see below. PHYSICAL EXAMINATION: VITAL SIGNS: see below General: NAD HEENT: Normocephalic, atraumatic, moist mucous membranes. Neck: No lymphadenopathy or thyromegaly Cardiac: Regular rate and rhythm, no murmurs, normal S1, normal S2 Pulm: Clear to auscultation bilaterally. No wheezes, rhonchi, rales Abd: Nondistended, nontender to palpation, normal bowel sounds Ext: No edema bilateral lower extremities Neuro: CN 2-12 intact, normal gait Recent Labs and imaging: reviewed. ASSESSMENT:65-year-old W with a past history of bipolar disorder, schizoaffective disorder, and dementia who was recently admitted to medicine for sepsis 2/2 E.coli UTI who is now admitted to the [facility] for psychiatric evaluation and optimization after expressing suicidal ideations and noted psychosis i/s/o medication noncompliance. PLAN: 1. Sucidal Ideation and psychosis with a history of schizoaffective disorder i/s/o medication non-compliance: -Plan per primary psychiatry team E.coli Urinary tract infection. -Complete the nitrofurantoin course as prescribed. Hypertension. -continue with her home metop 25 BID Hypothyroidism: -continue home levothyroxine 50mg daily DVT prophylaxis: ambulatory Vital Signs Vital Signs Date Time Temp Pulse Resp B/P (MAP) Pulse Ox O2 Delivery O2 Flow Rate FiO2 07/05/20 09:48 Room Air 07/04/20 16:08 98.6 89 16 115/78 (90) 100 Home Medications Scheduled Benztropine Mesylate (Benztropine Mesylate) 0.5 Mg Tablet, 0.5 MG PO BID Calcium Carbonate/Vitamin D3 (Calcium 500-Vit D3 200 Tablet) 1 Each Tablet, 1 TAB PO DAILY Clonazepam (Clonazepam) 0.5 Mg Tablet, 0.5 MG PO BID Donepezil HCl (Donepezil HCl) 10 Mg Tablet, 10 MG PO QHS Levothyroxine Sodium (Synthroid) 50 Mcg Tablet, 50 MCG PO DAILY Metoprolol Tartrate (Metoprolol Tartrate) 25 Mg Tablet, 25 MG PO BID Multivitamins (Thera M Plus Tablet) 1 Each Tablet, 1 TAB PO DAILY Nitrofurantoin Monohyd/M-Cryst (Nitrofurantoin [place]-Mcr 100 mg) 100 Mg Capsule, 100 MG PO BID Paliperidone Palmitate (Invega Trinza) 819 Mg/2.625 Ml Syringe, 819 MG IM Q3M Risperidone (Risperidone) 2 Mg Tablet, 2 MG PO QHS Venlafaxine HCl (Venlafaxine HCl ER) 75 Mg Cap.er.24h, 150 MG PO DAILY Scheduled PRN Trazodone HCl (Trazodone HCl) 50 Mg Tablet, 50 MG PO QHS PRN for INSOMNIA Miscellaneous Medications [Patient Comment] MED REC COMPLETED VIA EXTERNAL MED HISTORY, PRIOR DISCHARGE (06/17/20), PREVIOUS CLINIC VISIT (06/21/20) AND PHONE CALL WITH SISTER Allergies Coded Allergies: No Known Allergies (Verified , 01/25/18) A-FIB/CHADSVASC A-FIB History Current/History of A-Fib/PAF?: No Current PO Anticoag Therapy: No Age/Risk Factor Scoring CHADSVASC: CHADSVASC Response (Comments) Value Age Risk Factor Age < 65 years old 0 Gender Risk Factor Female 1 Hx of CHF No 0 Hx of HTN Yes 1 Hx of Stroke/TIA/or VTE No 0 Hx of Diabetes No 0 Hx of Vascular Disease No 0 Total 2 Treatment Treatment ordered: NONE Reason Anticoagulant not given: Not indicated/[id number] SOURAV EDWARDS MD Jul 05, 2020 10:11
[2020-07-05] MEDS: METOPROLOL TART 25 MG TABLET PO SCH ×2 (11:45→20:26)
[2020-07-05] MEDS: LEVOTHYROXINE 50MCG TABLET (0.05MG) PO SCH (11:45)
[2020-07-05] MEDS: CALCIUM/VITAMIN D 500 MG TAB PO SCH (11:45)
--- NOTE | 2020-07-05 14:04 | MHHPE ---
[facility] HISTORY AND PHYSICAL DATE OF ADMISSION: 07/04/2020 IDENTIFYING DATA: She is a 65-year-old female living by herself, was admitted because of suicidal thoughts. HISTORY OF PRESENT ILLNESS: Patient was recently discharged from inpatient mental health unit ([facility]) on June 19, 2020. Her diagnoses were schizoaffective disorder and minor neurocognitive disorder. She was discharged to her sister; however, she started living by herself afterwards and she called emergency medical services (EMS), expressed suicidal thoughts, and was brought to the emergency room. She was admitted to the medical side for urinary tract infection and altered mental status. She was cleared medically and transferred to [facility]. Patient has a long history of mental illness with multiple psychiatric hospitalizations, followed up by Dr. Yi as an outpatient. Patient has history of delusions. She was on risperidone, Cogentin and Effexor. According to the patient, she takes care of her activities of daily living (ADLs). She was on various medications like risperidone and Invega Sustenna. Currently, patient is laying in bed, cooperative. She is ambivalent about suicidal ideas. PAST PSYCHIATRIC HISTORY: Multiple psychiatric hospitalizations. SUICIDAL HISTORY: She has a history of a suicide attempt in the past by overdose of pills. DRUG/ALCOHOL HISTORY: Patient denies. MEDICAL HISTORY: Patient has a history of: 1. Hypothyroidism. 2. Hypertension. FAMILY HISTORY: Father had history of dementia. PERSONAL HISTORY: She was born in [place]. She has one brother and four sisters. She reports that she completed high school graduation and has a college degree. She is single, has no children. MENTAL STATUS EXAMINATION: Patient is cooperative, laying down. Patient has hand tremors. Mood is mildly depressed. Affect is mood congruent. Denies any auditory or visual hallucinations. Complains of vague suicidal thoughts. Insight and judgment are limited. Memory: Immediate recall is 2/3. Her attention is good. DIAGNOSES: 1. Schizoaffective disorder, bipolar type. 2. Neurocognitive disorder, minor. 3. History of urinary tract infection. 4. Hypertension. VITAL SIGNS: Temperature 98.6, pulse 89, respiratory rate 16, blood pressure 115/78, pulse oximetry 100. LABORATORY STUDIES: CBC within normal limits. CMP within normal limits. Toxicology was negative. REVIEW OF SYSTEMS: CONSTITUTIONAL: Negative for night sweats and weight loss. HEENT: Negative for epistaxis, headache, sore throat. RESPIRATORY: No cough or shortness of breath. CARDIOVASCULAR: Negative for chest pain or palpitations. GASTROINTESTINAL: No abdominal pain or change in bowel habits. GENITOURINARY: No dysuria. No trouble voiding. MUSCULOSKELETAL: Negative for Gait disturbance. NEUROLOGIC: Denies dizziness, numbness or tingling. PLAN: 1. Admit to inpatient mental health unit (IM). 2. Will be followed up by door person for medical needs. 3. Will be on suicide precautions. 4. Will be continued on individual, group and milieu therapy. MEDICATIONS: We will start with: - risperidone 2 mg at night Continue: - Cogentin 5 mg twice daily - Effexor XR 150 mg once daily - Remeron 7.5 mg at night ESTIMATED LENGTH OF STAY: 4-5 days. TIME SPEND: 45 minutes. MTDD
[2020-07-05 16:10] VITALS: BP 132/74
[2020-07-05] MEDS: MIRTAZAPINE 7.5MG PER 1/2 TABLET PO SCH (20:24)
[2020-07-05] MEDS: risperiDONE 2 MG TAB PO SCH (20:24)
[2020-07-06] MEDS: LEVOTHYROXINE 50MCG TABLET (0.05MG) PO SCH (05:33)
[2020-07-06 06:21] VITALS: BP 128/86
[2020-07-06] MEDS: BENZTROPINE 0.5 MG TAB PO SCH ×2 (08:56→20:26)
[2020-07-06] MEDS: CALCIUM/VITAMIN D 500 MG TAB PO SCH (08:56)
[2020-07-06] MEDS: NITROFURANTOIN (MACROBID) 100 MG CAP PO SCH ×2 (08:56→20:25)
[2020-07-06] MEDS: VENLAFAXINE **XR** 75MG CAPSULE PO SCH (08:56)
[2020-07-06] MEDS: METOPROLOL TART 25 MG TABLET PO SCH ×2 (09:01→20:26)
[2020-07-06] MEDS: LORazepam 0.5 MG TAB PO PRN (11:56)
[2020-07-06 16:16] VITALS: BP 110/70
[2020-07-06] MEDS: risperiDONE 2 MG TAB PO SCH (20:25)
[2020-07-06] MEDS: MIRTAZAPINE 7.5MG PER 1/2 TABLET PO SCH (20:25)
[2020-07-06] MEDS: traZODone 50 MG TAB PO PRN (20:25)
[2020-07-07] MEDS: LEVOTHYROXINE 50MCG TABLET (0.05MG) PO SCH (05:48)
[2020-07-07 06:26] VITALS: BP 139/78
[2020-07-07] MEDS: METOPROLOL TART 25 MG TABLET PO SCH ×2 (08:14→20:13)
[2020-07-07] MEDS: VENLAFAXINE **XR** 75MG CAPSULE PO SCH (08:14)
[2020-07-07] MEDS: BENZTROPINE 0.5 MG TAB PO SCH ×2 (08:14→20:13)
[2020-07-07] MEDS: CALCIUM/VITAMIN D 500 MG TAB PO SCH (08:15)
[2020-07-07 16:26] VITALS: BP 125/72
--- NOTE | 2020-07-07 17:52 | MHIPN ---
[facility] PROGRESS NOTE DATE: 07/06/2020 VITAL SIGNS: Blood pressure 110/70, pulse 90, temperature 98.8. This is a video assessment. She is seen in the presence of staff. CHIEF COMPLAINT: Says feels good. SUBJECTIVE: Seen for followup. She indicates she feels good, and that she is happy, was vague about this, says slept well, appetite okay. MENTAL STATUS EXAMINATION: Neat, cooperative, no agitation, no psychomotor retardation, coherent for brief portions, but quite a bit of her statements are not in keeping with what has been discussed. Affect fairly broad. Denies any suicidal thoughts or intents. I could not detect any overt delusions at present. Judgment and insight compromised. ASSESSMENT: Schizoaffective disorder, bipolar type. Neurocognitive disorder, mild. PLAN: Continue current care, observations, and encourage participation in activities as tolerated. Further recommendations will be made depending on the clinical picture. Will resume the lorazepam she was on at 0.5 mg twice a day as needed for anxiety. The assessment took 10 minutes.
--- NOTE | 2020-07-07 18:19 | MHIPN ---
[facility] PROGRESS NOTE DATE: 07/07/2020 VITAL SIGNS: Blood pressure 137/78, pulse 88, temperature 99.2 This is a followup, this is done on video. CHIEF COMPLAINT: Feels okay. SUBJECTIVE: Seen for followup, says has been doing okay, though somewhat vague on this, says just attended group, but that was somewhat upset, or anxious there, but could not elaborate. She has been eating okay, says slept well. MENTAL STATUS EXAMINATION: Neat, cooperative, no agitation, answers questions briefly, coherently at present. Affect restricted in range. No overt evidence of any thoughts of harming herself or anyone else. I could not detect any overt delusions at present. Cognition compromised in terms of orientation to time. Judgment and insight are diminished. ASSESSMENT: Schizoaffective disorder, bipolar type. Neurocognitive disorder, minor. PLAN: Continue current care and observations. She will be seen by the assigned clinician tomorrow.
[2020-07-07] MEDS: LORazepam 0.5 MG TAB PO PRN (20:13)
[2020-07-07] MEDS: risperiDONE 2 MG TAB PO SCH (20:14)
[2020-07-07] MEDS: MIRTAZAPINE 7.5MG PER 1/2 TABLET PO SCH (20:14)
[2020-07-07 21:14] VITALS: BP 124/67
[2020-07-08] MEDS: LEVOTHYROXINE 50MCG TABLET (0.05MG) PO SCH (06:03)
[2020-07-08 06:59] VITALS: BP 131/73
[2020-07-08] MEDS: CALCIUM/VITAMIN D 500 MG TAB PO SCH (08:33)
[2020-07-08] MEDS: VENLAFAXINE **XR** 75MG CAPSULE PO SCH (08:33)
[2020-07-08] MEDS: METOPROLOL TART 25 MG TABLET PO SCH ×2 (08:33→20:19)
[2020-07-08] MEDS: BENZTROPINE 0.5 MG TAB PO SCH ×2 (08:33→20:17)
[2020-07-08] MEDS: ACETAMINOPHEN TAB 650MG DOSE (2X325MG) PO PRN (09:39)
[2020-07-08 18:00] VITALS: BP 144/84
[2020-07-08] MEDS: MIRTAZAPINE 7.5MG PER 1/2 TABLET PO SCH (20:17)
[2020-07-08] MEDS: risperiDONE 2 MG TAB PO SCH (20:17)
[2020-07-09] MEDS: traZODone 50 MG TAB PO PRN ×2 (01:51→20:31)
[2020-07-09] MEDS: LEVOTHYROXINE 50MCG TABLET (0.05MG) PO SCH (05:52)
[2020-07-09 06:34] VITALS: BP 156/79
[2020-07-09] MEDS: CALCIUM/VITAMIN D 500 MG TAB PO SCH (08:06)
[2020-07-09] MEDS: BENZTROPINE 0.5 MG TAB PO SCH ×2 (08:06→20:32)
[2020-07-09] MEDS: METOPROLOL TART 25 MG TABLET PO SCH ×2 (08:07→20:31)
[2020-07-09] MEDS: VENLAFAXINE **XR** 75MG CAPSULE PO SCH (08:07)
[2020-07-09] MEDS: ACETAMINOPHEN TAB 650MG DOSE (2X325MG) PO PRN (08:08)
--- NOTE | 2020-07-09 11:39 | MHIPN ---
[facility] PSYCHIATRIC PROGRESS NOTE DATE OF SERVICE: 07/08/2020 HISTORY OF PRESENT ILLNESS: The patient today states that she is feeling "better." She tells me that she asked to go back to her apartment because she felt "nervous" staying with her sister which is where she was discharged to from the hospital recently because the patient was saying that if she was living alone she would kill herself so today she says that she is feeling better, but she is not feeling alone and she does recognize that if she went back to her apartment she might start having those thoughts again. MENTAL STATUS EXAM: This patient is alert and oriented times. Eye contact is fair. Psychomotor activity decreased. Mood is "better." Affect is flat. She is not psychotic. She is denying any suicidal or homicidal ideations. Concentration is fair. Insight and judgment is poor. DIAGNOSES: 1. Schizoaffective disorder bipolar type. 2. Neurocognitive disorder. TREATMENT PLAN: We will continue to monitor the patient for continued elevation and stabilization of her mood. The patient's sister named Shira is supposed to be returning tomorrow from her winter break in [place]. This is the sister that apparently seems to be more responsible for the patient and so it will be important to know what the sister might have as far as disposition for the patient.
[2020-07-09 18:00] VITALS: BP 146/80
[2020-07-09] MEDS: risperiDONE 2 MG TAB PO SCH (20:32)
[2020-07-09] MEDS: MIRTAZAPINE 7.5MG PER 1/2 TABLET PO SCH (20:32)
[2020-07-09 22:09] VITALS: BP 105/58
[2020-07-10] MEDS: LEVOTHYROXINE 50MCG TABLET (0.05MG) PO SCH (05:51)
[2020-07-10 07:25] VITALS: BP 112/68
[2020-07-10] MEDS: ACETAMINOPHEN TAB 650MG DOSE (2X325MG) PO PRN (08:15)
[2020-07-10] MEDS: BENZTROPINE 0.5 MG TAB PO SCH ×2 (08:15→20:30)
[2020-07-10] MEDS: CALCIUM/VITAMIN D 500 MG TAB PO SCH (08:15)
[2020-07-10] MEDS: METOPROLOL TART 25 MG TABLET PO SCH ×2 (08:16→20:30)
[2020-07-10] MEDS: VENLAFAXINE **XR** 75MG CAPSULE PO SCH (08:16)
[2020-07-10 17:51] VITALS: BP 153/87
[2020-07-10] MEDS: risperiDONE 2 MG TAB PO SCH (20:29)
[2020-07-10] MEDS: MIRTAZAPINE 7.5MG PER 1/2 TABLET PO SCH (20:29)
[2020-07-10] MEDS: traZODone 50 MG TAB PO PRN (20:29)
[2020-07-11] MEDS: LEVOTHYROXINE 50MCG TABLET (0.05MG) PO SCH (06:02)
[2020-07-11 06:08] VITALS: BP 136/78
--- NOTE | 2020-07-11 08:14 | MHIPN ---
[facility] PROGR[facility] DATE: 07/10/2020 The patient today states that she is doing better. She tells me that she slept good and she is feeling safe and is not suicidal today. She is looking forward to her sister returning today from [place]. MENTAL STATUS EXAMINATION: She is alert and oriented times three. Eye contact is fair. Psychomotor activity is normal. There is no formal thought disorder noted. Mood is "better." Affect is constricted but appropriate to mood. She is not psychotic. She is denying suicidal or homicidal ideation. Concentration is fair. Memory is fair. Insight and judgment is fair. DIAGNOSES: Schizoaffective disorder bipolar type. Neurocognitive disorder. TREATMENT PLAN: At this point, we will continue to monitor the patient for continued elevation and stabilization of mood and continued resolution of suicidal ideation, and hopefully now with the sister returning from [place], she will be able to help with disposition for this patient.
[2020-07-11] MEDS: CALCIUM/VITAMIN D 500 MG TAB PO SCH (08:18)
[2020-07-11] MEDS: BENZTROPINE 0.5 MG TAB PO SCH ×2 (08:18→21:01)
[2020-07-11] MEDS: METOPROLOL TART 25 MG TABLET PO SCH ×2 (08:18→21:01)
[2020-07-11] MEDS: VENLAFAXINE **XR** 75MG CAPSULE PO SCH (08:18)
[2020-07-11] MEDS: ACETAMINOPHEN TAB 650MG DOSE (2X325MG) PO PRN (08:19)
[2020-07-11 19:05] VITALS: BP 134/76
[2020-07-11] MEDS: MIRTAZAPINE 7.5MG PER 1/2 TABLET PO SCH (21:01)
[2020-07-11] MEDS: risperiDONE 2 MG TAB PO SCH (21:01)
[2020-07-12] MEDS: LEVOTHYROXINE 50MCG TABLET (0.05MG) PO SCH (05:58)
[2020-07-12 06:23] VITALS: BP 152/87
[2020-07-12] MEDS: METOPROLOL TART 25 MG TABLET PO SCH ×2 (08:21→20:16)
[2020-07-12] MEDS: BENZTROPINE 0.5 MG TAB PO SCH ×2 (08:21→20:16)
[2020-07-12] MEDS: CALCIUM/VITAMIN D 500 MG TAB PO SCH (08:21)
[2020-07-12] MEDS: VENLAFAXINE **XR** 75MG CAPSULE PO SCH (08:21)
[2020-07-12] MEDS: ACETAMINOPHEN TAB 650MG DOSE (2X325MG) PO PRN (08:23)
--- NOTE | 2020-07-12 10:44 | MHIPN ---
[facility] PSYCHIATRIC PROGRESS NOTE DATE OF SERVICE: 07/11/2020 HISTORY OF PRESENT ILLNESS: The patient today states that she continues to feel better. She had been constipated for a few days, but she said she had a good bowel movement this morning. She is denying any suicidal ideation, but continues to say that this is because she feels safe in this environment and if she went home she would not feel safe. Her sister Shira is supposed to be back today and I discussed with the patient that I will have digital media planner reach out to her sister Shira to see if we can set up a disposition of this patient. Ideally it would be nice if she could go stay with the sister at least temporarily. I recommend that they consider possibly a referral to an assisted adult home for this patient. MENTAL STATUS EXAM: This patient is alert and oriented times 3. She is pleasant and cooperative, verbally spontaneous. Eye contact is good. She is not psychotic, suicidal or homicidal. She says her mood is better. Affect is restrictive, but appropriate to mood. Concentration is fair. Insight and judgment is fair. DIAGNOSES: 1. Schizoaffective disorder bipolar type. 2. Neurocognitive disorder. TREATMENT PLAN: At this point we will continue to monitor the patient for further stabilization of her mood and continued resolution of suicidal ideation.
[2020-07-12 17:41] VITALS: BP 41/87
[2020-07-12] MEDS: MIRTAZAPINE 7.5MG PER 1/2 TABLET PO SCH (20:16)
[2020-07-12] MEDS: risperiDONE 2 MG TAB PO SCH (20:16)
[2020-07-13] MEDS: LEVOTHYROXINE 50MCG TABLET (0.05MG) PO SCH (06:05)
[2020-07-13 06:51] VITALS: BP 131/73
[2020-07-13] MEDS: CALCIUM/VITAMIN D 500 MG TAB PO SCH (08:23)
[2020-07-13] MEDS: BENZTROPINE 0.5 MG TAB PO SCH ×2 (08:23→21:01)
[2020-07-13] MEDS: METOPROLOL TART 25 MG TABLET PO SCH ×2 (08:24→21:01)
[2020-07-13] MEDS: VENLAFAXINE **XR** 75MG CAPSULE PO SCH (08:24)
[2020-07-13] MEDS: ACETAMINOPHEN TAB 650MG DOSE (2X325MG) PO PRN (08:41)
[2020-07-13 17:57] VITALS: BP 128/66
[2020-07-13] MEDS: risperiDONE 2 MG TAB PO SCH (21:00)
[2020-07-13] MEDS: MIRTAZAPINE 7.5MG PER 1/2 TABLET PO SCH (21:00)
[2020-07-13] MEDS: traZODone 50 MG TAB PO PRN (21:02)
[2020-07-14 00:18] VITALS: BP 140/72
[2020-07-14] MEDS: LEVOTHYROXINE 50MCG TABLET (0.05MG) PO SCH (05:39)
[2020-07-14 06:16] VITALS: BP 158/90
[2020-07-14] MEDS: BENZTROPINE 0.5 MG TAB PO SCH ×2 (08:06→20:16)
[2020-07-14] MEDS: CALCIUM/VITAMIN D 500 MG TAB PO SCH (08:06)
[2020-07-14] MEDS: VENLAFAXINE **XR** 75MG CAPSULE PO SCH (08:07)
[2020-07-14] MEDS: METOPROLOL TART 25 MG TABLET PO SCH ×2 (08:07→20:17)
[2020-07-14] MEDS: ACETAMINOPHEN TAB 650MG DOSE (2X325MG) PO PRN (08:09)
[2020-07-14] MEDS: risperiDONE 2 MG TAB PO SCH (20:16)
[2020-07-14] MEDS: MIRTAZAPINE 7.5MG PER 1/2 TABLET PO SCH (20:16)
[2020-07-14] MEDS: traZODone 50 MG TAB PO PRN (20:16)
--- NOTE | 2020-07-14 21:46 | MHIPN ---
[facility] PROGRESS NOTE DATE: 07/12/2020 The patient was reported by staff to appear to be confused. She was thinking that she was going to be discharged today, she was tearful, and, when I saw her, she appeared to be confused and many of the questions I asked her, she would say, "I don't remember." At one point, she even told me that she had some suicidal thoughts and I asked her why and she gave me very vague answers as to why. This was in striking difference from the way she appeared yesterday, where she appeared to be doing much better, her mood appeared to be good, and I think this was all due to her neurocognitive problems. MENTAL STATUS EXAM: She isalert and oriented to person and place. She is very guarded and appears to be confused. She describes her mood as "I don't know," and her affect is flat. I did not elicit any actual psychotic symptoms. She did say she was having suicidal thoughts. She is not homicidal. Concentration is poor. Memory is fair. Insight and judgment is poor. DIAGNOSES: Schizoaffective disorder, bipolar type. Neurocognitive disorder. TREATMENT PLAN: At this point, we will continue to monitor the patient for stability of mood. Yesterday she was doing better, today she appears to be confused, and I think this is all due to her dementia, and every time she thinks she is going to be going home possibly by herself she becomes overwhelmed also. I do not feel that it is safe for this patient to go home to her own apartment, it is important to speak to her sister, Shira, who had been in [place] and apparently who might be able to help in the disposition of this patient. The patient did receive her Invega Trinza 819 mg intramuscular (IM) at [facility] on 06/26/2020. RONNIED
[2020-07-15] MEDS: LEVOTHYROXINE 50MCG TABLET (0.05MG) PO SCH (06:00)
[2020-07-15 06:41] VITALS: BP 140/85
[2020-07-15] MEDS: ACETAMINOPHEN TAB 650MG DOSE (2X325MG) PO PRN (08:09)
[2020-07-15] MEDS: VENLAFAXINE **XR** 75MG CAPSULE PO SCH (08:10)
[2020-07-15] MEDS: CALCIUM/VITAMIN D 500 MG TAB PO SCH (08:10)
[2020-07-15] MEDS: METOPROLOL TART 25 MG TABLET PO SCH ×2 (08:12→20:10)
[2020-07-15] MEDS: BENZTROPINE 0.5 MG TAB PO SCH ×2 (08:12→20:10)
--- NOTE | 2020-07-15 15:41 | MHIPNPDOC ---
[facility] Progress Note Progress Note DATE OF SERVICE: 07/15/20 Yany is a 65-year-old female with long psychiatric history admitted due to persistent confusion, disorganized thinking and inability to care for herself. S he was seen by a DMD today for daily around an evaluation. She was cooperative and in control, but is very blunted, regressed, preoccupied, and responds with simpler answer of I do not know to most of the questions. She claims that she doesn't know why she is feeling so sick and tired and doesn't feel like she can take care of herself and does not feel right. She is denying any hallucination or paranoid fear and denies any active lethality, but reports feeling confused, hopeless and helpless. HISTORY: Long history of the repeated admissions with the question of possible dementia. VITAL SIGNS: See below. NEW TEST RESULTS: . CURRENT MEDICATIONS: See below. MENTAL STATUS EXAMINATION: Patient is a 65-year old female, who is in no acute distress. Speech: Is , relevant, but not productive. Language skills are . Thought processes including: Showing marked poverty of thought Thought content: Denies any delusional or or paranoid ideas. Abstract reasoning, and computation: . Description of associations: Poverty of thought. Description of abnormal or psychotic thoughts: Feeling confused. Judgment: , Very poor. Insight: very poor. Orientation: [. She knows the date and the place Recent and remote memory: She reports that she does not remember much Attention span and concentration: , Very poor. Language: . Fund of knowledge: , Poor. Mood: , Sad, feeling hopeless. Affect: , Very blunted. DIAGNOSES: 1. . Schizoaffective disorder, rule out major depression with psychotic feature 2. ., Rule out pseudodementia 3. . ASSESSMENT: MANAGEMENT PLAN: Supportive therapy stabilized with medicine. Discharge planning. TIME SPENT: 20 minutes. Vital Signs Vital Signs Date Time Temp Pulse Resp B/P (MAP) Pulse Ox O2 Delivery O2 Flow Rate FiO2 07/15/20 08:12 95 116/64 07/15/20 06:41 99.5 20 96 Room Air 07/10/20 07:25 20.0 Current Medications Current Medications Medications (Trade) Dose Ordered Sig/Dev Route PRN Reason Start Time Stop Time Status Last Admin Dose Admin Acetaminophen (Tylenol Tab) 650 mg Q6HP PRN PO HEADACHE or DISCOMFORT 07/04/20 13:55 5/10/21 08:09 Al Hydrox/Mg Hydrox/Simethicone (Mylanta) 30 ml Q4HP PRN PO HEARTBURN/INDIGESTION 07/04/20 13:55 Benztropine Mesylate (Cogentin) 0.5 mg BID PO 07/05/20 09:00 07/15/20 08:12 Calcium/Vitamin D (Oscal D) 500 mg DAILY PO 07/05/20 09:00 07/15/20 08:10 Levothyroxine Sodium (Synthroid) 50 mcg DAILY@06 PO 07/05/20 06:00 07/15/20 06:00 Lorazepam (Ativan) 0.5 mg BIDP PRN PO ANXIETY/AGITATION 07/06/20 11:50 07/07/20 20:13 Magnesium Hydroxide (Milk Of Magnesia) 30 ml DAILYPRN PRN PO CONSTIPATION 07/04/20 13:55 Metoprolol Tartrate (Lopressor) 25 mg BID PO 07/05/20 11:30 07/15/20 08:12 Mirtazapine (Remeron) 7.5 mg QHS PO 07/05/20 21:00 07/14/20 20:16 Miscellaneous (Unresolved Clarification Entry) SEE LABEL COMMENTS DAILY XX 07/11/20 09:00 07/12/20 12:26 DC Nitrofurantoin Monoh/Nitrofur Macro (Macrobid) 100 mg BID PO 07/05/20 09:00 07/07/20 08:59 DC 07/06/20 20:25 Risperidone (RisperDAL) 2 mg QHS PO 07/05/20 21:00 07/14/20 20:16 Trazodone HCl (Desyrel) 50 mg QHSP PRN PO INSOMNIA 07/04/20 13:55 07/14/20 20:16 Venlafaxine HCl (Effexor Xr) 150 mg DAILY PO 07/05/20 09:00 07/15/20 08:10 Allergies Coded Allergies: No Known Allergies (Verified , 01/25/18) STEWART WISE M.D. July 15, 2020 15:41
[2020-07-15 16:19] VITALS: BP 108/59
[2020-07-15] MEDS: traZODone 50 MG TAB PO PRN (20:10)
[2020-07-15] MEDS: risperiDONE 2 MG TAB PO SCH (20:10)
[2020-07-15] MEDS: MIRTAZAPINE 7.5MG PER 1/2 TABLET PO SCH (20:10)
[2020-07-16] MEDS: LEVOTHYROXINE 50MCG TABLET (0.05MG) PO SCH (05:58)
[2020-07-16 06:44] VITALS: BP 124/76
[2020-07-16] MEDS: VENLAFAXINE **XR** 75MG CAPSULE PO SCH (08:14)
[2020-07-16] MEDS: BENZTROPINE 0.5 MG TAB PO SCH ×2 (08:14→20:01)
[2020-07-16] MEDS: METOPROLOL TART 25 MG TABLET PO SCH ×2 (08:14→20:01)
[2020-07-16] MEDS: CALCIUM/VITAMIN D 500 MG TAB PO SCH (08:14)
--- NOTE | 2020-07-16 13:11 | MHIPNPDOC ---
[facility] Progress Note Progress Note DATE OF SERVICE: H Patient was seen for daily, round, and case was discussed in the treatment team meeting. Patient is presenting with the same mental status and attitude. she is somewhat perplexed, regressed and preoccupied. Reports that she is not feeling well she is confused and she doesn't think she can take care of herself. The nephrology social worker reports that the patient has been refusing any attempt to place her in a supportive living situation, but always returns to hospital, claiming that she is not able to care for himself. She is very dependent and regressed and quite somatic but is not showing any real gross confusion. When pressed, hard she is able to give the right answers about the dates and other memory questions. HISTORY: . VITAL SIGNS: See below. NEW TEST RESULTS: . CURRENT MEDICATIONS: See below. MENTAL STATUS EXAMINATION: Patient is a 65-year old female, who is in no acute distress.. Speech: Is , not productive at all. Language skills are poor . Thought processes including: . Thought content: , Very somatic, reports feeling sick and confused. Abstract reasoning, and computation: For. Description of associations: , Poor. Description of abnormal or psychotic thoughts: Somatic preoccupation. Judgment: , Poor. Insight: very poor. Orientation: Notes that they can place. Recent and remote memory: Claimed that she cannot remember much, but no evidence of gross impairment . Attention span and concentration: For. Language: . Fund of knowledge: , Poor. Mood: , Depressed. Affect: Blunted preoccupied. DIAGNOSES: 1. . Schizoaffective disorder 2. . 3. . ASSESSMENT: MANAGEMENT PLAN: , Continue the supportive therapy and medications arranging for home theater experience expert visits. TIME SPENT: 20 minutes. Vital Signs Vital Signs Date Time Temp Pulse Resp B/P (MAP) Pulse Ox O2 Delivery O2 Flow Rate FiO2 07/16/20 08:14 85 124/76 07/16/20 06:44 99.1 18 99 Room Air 07/10/20 07:25 20.0 Current Medications Current Medications Medications (Trade) Dose Ordered Sig/Dev Route PRN Reason Start Time Stop Time Status Last Admin Dose Admin Acetaminophen (Tylenol Tab) 650 mg Q6HP PRN PO HEADACHE or DISCOMFORT 07/04/20 13:55 07/15/20 08:09 Al Hydrox/Mg Hydrox/Simethicone (Mylanta) 30 ml Q4HP PRN PO HEARTBURN/INDIGESTION 07/04/20 13:55 Benztropine Mesylate (Cogentin) 0.5 mg BID PO 07/05/20 09:00 07/16/20 08:14 Calcium/Vitamin D (Oscal D) 500 mg DAILY PO 07/05/20 09:00 07/16/20 08:14 Levothyroxine Sodium (Synthroid) 50 mcg DAILY@06 PO 07/05/20 06:00 07/16/20 05:58 Lorazepam (Ativan) 0.5 mg BIDP PRN PO ANXIETY/AGITATION 07/06/20 11:50 07/07/20 20:13 Magnesium Hydroxide (Milk Of Magnesia) 30 ml DAILYPRN PRN PO CONSTIPATION 07/04/20 13:55 Metoprolol Tartrate (Lopressor) 25 mg BID PO 07/05/20 11:30 07/16/20 08:14 Mirtazapine (Remeron) 7.5 mg QHS PO 07/05/20 21:00 07/15/20 20:10 Miscellaneous (Unresolved Clarification Entry) SEE LABEL COMMENTS DAILY XX 07/11/20 09:00 07/12/20 12:26 DC Nitrofurantoin Monoh/Nitrofur Macro (Macrobid) 100 mg BID PO 07/05/20 09:00 07/07/20 08:59 DC 07/06/20 20:25 Risperidone (RisperDAL) 2 mg QHS PO 07/05/20 21:00 07/15/20 20:10 Trazodone HCl (Desyrel) 50 mg QHSP PRN PO INSOMNIA 07/04/20 13:55 07/15/20 20:10 Venlafaxine HCl (Effexor Xr) 150 mg DAILY PO 07/05/20 09:00 07/16/20 08:14 Allergies Coded Allergies: No Known Allergies (Verified , 01/25/18) STEWART WISE M.D. July 16, 2020 13:11
[2020-07-16 16:21] VITALS: BP 127/60
[2020-07-16] MEDS: traZODone 50 MG TAB PO PRN (20:01)
[2020-07-16] MEDS: MIRTAZAPINE 7.5MG PER 1/2 TABLET PO SCH (20:01)
[2020-07-16] MEDS: risperiDONE 2 MG TAB PO SCH (20:01)
[2020-07-17] MEDS: LEVOTHYROXINE 50MCG TABLET (0.05MG) PO SCH (05:59)
[2020-07-17 06:31] VITALS: BP 142/75
[2020-07-17] MEDS: ACETAMINOPHEN TAB 650MG DOSE (2X325MG) PO PRN (08:07)
[2020-07-17] MEDS: BENZTROPINE 0.5 MG TAB PO SCH ×2 (08:08→20:13)
[2020-07-17] MEDS: METOPROLOL TART 25 MG TABLET PO SCH ×2 (08:08→20:14)
[2020-07-17] MEDS: VENLAFAXINE **XR** 75MG CAPSULE PO SCH (08:08)
[2020-07-17] MEDS: CALCIUM/VITAMIN D 500 MG TAB PO SCH (08:08)
--- NOTE | 2020-07-17 10:28 | MHIPNPDOC ---
[facility] Progress Note Progress Note DATE OF SERVICE: 07/17/20 The patient shows essentially the same mental status and behavior. She is a however, agreeing to go to an assisted or supported living and signed the consent with the associate media planner and is willing to accept the service. She does not appear as confused and is showing good hygiene and is maintaining good control and is eating and sleeping okay and denies any suicidal thoughts. She is still feeling at times confused and wonders if she can take care of herself but is understanding the need for supervised living. The associate media planner is making a referral to a facility in the past. She is agreeable. We will discharge her home tomorrow with the plan to go to a supervised assisted living. HISTORY: . VITAL SIGNS: See below. NEW TEST RESULTS: . CURRENT MEDICATIONS: See below. MENTAL STATUS EXAMINATION: Patient is a [65]-year old female, Speech: Is [relevant and coherent]. Language skills are [good]. Thought processes including: [, Organized]. Thought content: [Without any delusion or paranoia]. Abstract reasoning, and computation: [, Poor]. Description of associations: [, Organized]. Description of abnormal or psychotic thoughts: [None]. Judgment: [, Poor]. Insight: [ poor]. Orientation: [, Oriented to time and place]. Recent and remote memory: Fair . Attention span and concentration: [, Poor]. Language: . Fund of knowledge: [, Limited]. Mood: [Euthymic]. Affect: [Perplexed, but appropriate]. DIAGNOSES: 1. [Schizoaffective disorder]. 2. . 3. . ASSESSMENT:[Showing improvement in her judgment] MANAGEMENT PLAN: [Being referred to an assisted living]. TIME SPENT: [15 minute] Vital Signs Vital Signs Date Time Temp Pulse Resp B/P (MAP) Pulse Ox O2 Delivery O2 Flow Rate FiO2 07/17/20 08:08 98 118/86 07/17/20 06:31 98.6 16 100 Room Air Current Medications Current Medications Medications (Trade) Dose Ordered Sig/Dev Route PRN Reason Start Time Stop Time Status Last Admin Dose Admin Acetaminophen (Tylenol Tab) 650 mg Q6HP PRN PO HEADACHE or DISCOMFORT 07/04/20 13:55 07/17/20 08:07 Al Hydrox/Mg Hydrox/Simethicone (Mylanta) 30 ml Q4HP PRN PO HEARTBURN/INDIGESTION 07/04/20 13:55 Benztropine Mesylate (Cogentin) 0.5 mg BID PO 07/05/20 09:00 07/17/20 08:08 Calcium/Vitamin D (Oscal D) 500 mg DAILY PO 07/05/20 09:00 07/17/20 08:08 Levothyroxine Sodium (Synthroid) 50 mcg DAILY@06 PO 07/05/20 06:00 07/17/20 05:59 Lorazepam (Ativan) 0.5 mg BIDP PRN PO ANXIETY/AGITATION 07/06/20 11:50 07/07/20 20:13 Magnesium Hydroxide (Milk Of Magnesia) 30 ml DAILYPRN PRN PO CONSTIPATION 07/04/20 13:55 Metoprolol Tartrate (Lopressor) 25 mg BID PO 07/05/20 11:30 07/17/20 08:08 Mirtazapine (Remeron) 7.5 mg QHS PO 07/05/20 21:00 07/16/20 20:01 Miscellaneous (Unresolved Clarification Entry) SEE LABEL COMMENTS DAILY XX 07/11/20 09:00 07/12/20 12:26 DC Nitrofurantoin Monoh/Nitrofur Macro (Macrobid) 100 mg BID PO 07/05/20 09:00 07/07/20 08:59 DC 07/06/20 20:25 Risperidone (RisperDAL) 2 mg QHS PO 07/05/20 21:00 07/16/20 20:01 Trazodone HCl (Desyrel) 50 mg QHSP PRN PO INSOMNIA 07/04/20 13:55 07/16/20 20:01 Venlafaxine HCl (Effexor Xr) 150 mg DAILY PO 07/05/20 09:00 07/17/20 08:08 Allergies Coded Allergies: No Known Allergies (Verified , 01/25/18) STEWART WISE M.D. July 17, 2020 10:28
[2020-07-17 16:17] VITALS: BP 134/80
[2020-07-17] MEDS: traZODone 50 MG TAB PO PRN (20:13)
[2020-07-17] MEDS: risperiDONE 2 MG TAB PO SCH (20:13)
[2020-07-17] MEDS: MIRTAZAPINE 7.5MG PER 1/2 TABLET PO SCH (20:13)
[2020-07-18 06:04] VITALS: BP 136/79
[2020-07-18] MEDS: LEVOTHYROXINE 50MCG TABLET (0.05MG) PO SCH (06:11)
[2020-07-18] MEDS: BENZTROPINE 0.5 MG TAB PO SCH (08:09)
[2020-07-18] MEDS: CALCIUM/VITAMIN D 500 MG TAB PO SCH (08:09)
[2020-07-18 08:10] VITALS: BP 136/79
[2020-07-18] MEDS: METOPROLOL TART 25 MG TABLET PO SCH (08:10)
[2020-07-18] MEDS: ACETAMINOPHEN TAB 650MG DOSE (2X325MG) PO PRN (08:10)
[2020-07-18] MEDS: VENLAFAXINE **XR** 75MG CAPSULE PO SCH (08:11)
[2020-07-18] MEDS ORDERED: MIRT-62 PO (10:54)
--- NOTE | 2020-07-18 10:55 | MHDSPDOC ---
[facility] Discharge Summary Discharge Summary DATE OF ADMISSION: Jul 04, 2020 at 16:01 DATE OF DISCHARGE: 07/19/2003 DISCHARGE DIAGNOSES: 1. . Schizoaffective disorder 2. . REASON FOR ADMISSION: [65-year-old single female with a long history of depression, schizoaffective disorder, was recently discharged on June 19, but returned to the emergency room by ambulance on July 04, with the increasing depression and vague suicidal thoughts. Patient has been in follow-up with a Dr. Yi in outpatient. Reportedly been compliant with medications but has been complaining of feeling confused, tired and depressed and expressed vague suicidal thoughts with marked somatic preoccupations and was admitted for stabilization.] CONSULTANTS INVOLVED: [None] TREATMENT AND PROGRESS ON THE UNIT : [The patient was seen for daily supportive therapy and was restarted on her antidepressant medicine and risperidone. She has fully cooperated with the medications, but showing a markedly regressed behavior remains somatically preoccupied with feeling tired, confused and unable to care for herself. She appears to be very dependent regressed and continued to report poor memory and confusion however, mental status examination doesn't show any significant signs or symptoms of dementia. She seems to be in need of constant support and reassurance, and clearly is in need of supportive living arrangement which She has refused in the past. After repeated the education and support patient is finally agreeing to be referred to a supportive living arrangement and is going to stay with a sister until a bed is available. Throughout the stay she has maintained good control. Didn't show any dangerous or suicidal behavior and denies any command hallucination or paranoia and appears to be at her baseline mental status. She will be discharged with her sister until she can be admitted to a supportive living arrangement.. HOSPITAL COURSE: [per abovesection] DISCHARGE ASSESSMENT: [, Moderately improved, stable and not suicidal] MENTAL STATUS EXAMINATION ON DISCHARGE: Patient is a [65]-year old female, who is [in no acute distress]. Speech is [relevant]. Language skills are fair . Thought processes including: [, Organized but not very productive]. Thought content: [Motocross, paranoia or delusional thinking and no suicidal thoughts]. Abstract reasoning, and computation: [Fair]. Description of associations: [, Organized]. Description of abnormal or psychotic thoughts: [None]. Judgment: [Fair]. Insight: [Fair]. Orientation to [, oriented to time and place]. Recent and remote memory: [Fair]. Attention span and concentration: [Fair]. Language: . Fund of knowledge: Below average]. Mood: [, Mildly anxious]. Affect: [, Appropriate]. MEDICATIONS ON DISCHARGE: Patient has enough refills of medicine to last 3 weeks - for . - for . - for . PLAN/FOLLOWUP ARRANGEMENTS: [As arranged by order planner]. The amount of time spent in the coordination of care for this patient was approximately [40] minutes. ETOH/Disorder Med Rx ETOH/DRUG DISORDER RX: N/A Vital Signs/I&Os Vital Signs Date Time Temp Pulse Resp B/P (MAP) Pulse Ox O2 Delivery O2 Flow Rate FiO2 07/18/20 08:15 Room Air 07/18/20 08:10 69 136/79 07/18/20 06:04 98.7 16 100 Medications Scheduled Benztropine Mesylate (Benztropine Mesylate) 0.5 Mg Tablet, 0.5 MG PO BID, (Reported) Calcium Carbonate/Vitamin D3 (Calcium 500-Vit D3 200 Tablet) 1 Each Tablet, 1 TAB PO DAILY, (Reported) Clonazepam (Clonazepam) 0.5 Mg Tablet, 0.5 MG PO BID, (Reported) Donepezil HCl (Donepezil HCl) 10 Mg Tablet, 10 MG PO QHS, (Reported) Levothyroxine Sodium (Synthroid) 50 Mcg Tablet, 50 MCG PO DAILY, (Reported) Metoprolol Tartrate (Metoprolol Tartrate) 25 Mg Tablet, 25 MG PO BID, (Reported) Multivitamins (Thera M Plus Tablet) 1 Each Tablet, 1 TAB PO DAILY, (Reported) Nitrofurantoin Monohyd/M-Cryst (Nitrofurantoin Citrus-Mcr 100 mg) 100 Mg Capsule, 100 MG PO BID for 3 Days, #6 Paliperidone Palmitate (Invega Trinza) 819 Mg/2.625 Ml Syringe, 819 MG IM Q3M, (Reported) Risperidone (Risperidone) 2 Mg Tablet, 2 MG PO QHS, (Reported) Venlafaxine HCl (Venlafaxine HCl ER) 75 Mg Cap.er.24h, 150 MG PO DAILY, (Reported) Scheduled PRN Trazodone HCl (Trazodone HCl) 50 Mg Tablet, 50 MG PO QHS PRN for INSOMNIA, (Reported) Miscellaneous Medications [Patient Comment] , (Reported) MED REC COMPLETED VIA EXTERNAL MED HISTORY, PRIOR DISCHARGE (06/17/20), PREVIOUS CLINIC VISIT (06/21/20) AND PHONE CALL WITH SISTER Allergies Coded Allergies: No Known Allergies (Verified , 01/25/18) STEWART WISE M.D. July 18, 2020 10:55
[2020-07-19] MEDS ORDERED: MIRT-62 PO (20:43)
[2020-07-19] MEDS ORDERED: LISI20TA33 PO (22:11)
[2020-07-19] MEDS ORDERED: DICL50TAB PO (22:11)
[2020-07-19] MEDS ORDERED: RISP-8 PO (22:12)
[2020-07-19] MEDS ORDERED: RISP-9 PO (22:12)
== END 2020-07-18 11:50 | disposition home or self-care (01) | DRG 885 ==
LOC: M PSY 16:01
PROVIDERS: ADMIT Psychiatry & Neurology Psychiatry; ATTEND Psychiatry & Neurology Psychiatry
DX: F25.0 Schizoaffective disorder, bipolar type (principal); R45.851 Suicidal ideations; N39.0 Urinary tract infection, site not specified; F03.90 Unspecified dementia, unspecified severity, without behavioral disturbance, psychotic disturbance, mood disturbance, and anxiety; E03.9 Hypothyroidism, unspecified; I10 Essential (primary) hypertension; J45.909 Unspecified asthma, uncomplicated; M81.0 Age-related osteoporosis without current pathological fracture; Z79.899 Other long term (current) drug therapy; B96.20 Unspecified Escherichia coli [E. coli] as the cause of diseases classified elsewhere; Z91.14 Patient's other noncompliance with medication regimen; Z91.5 Personal history of self-harm

== ENCOUNTER 2020-07-19 15:06 | Inpatient (IN) | payer OTHER, MEDICAID ==
[~2020-07-19] VITALS: Ht 142.2 cm; Wt 71.1 kg
[~2020-07-19 15:06] MED LIST changes: +MIRT-62 PO
--- NOTE | 2020-07-19 15:46 | REPVR ---
PROCEDURE INFORMATION: Exam: CT Head Without Contrast Exam date and time: 07/19/2020 3:25 PM Age: 65 years old Clinical indication: Altered mental status/memory loss TECHNIQUE: Imaging protocol: Computed tomography of the head without contrast. Radiation optimization: All CT scans at this facility use at least one of these dose optimization techniques: automated exposure control; mA and/or kV adjustment per patient size (includes targeted exams where dose is matched to clinical indication); or iterative reconstruction. COMPARISON: CT Head without contrast 05/31/2020 1:40 PM FINDINGS: Brain: Normal. No hemorrhage. Unremarkable white matter. No mass effect. Cerebral ventricles: No ventriculomegaly. Bones/joints: Unremarkable. No acute fracture. Paranasal sinuses: There is mild ethmoid mucoperiosteal thickening, reported previously. Mastoid air cells: Visualized mastoid air cells are well aerated. Soft tissues: Unremarkable. IMPRESSION: No acute intracranial abnormality. Electronically signed by: Noe Ghotra On 07/19/2020 15:45:35 PM
[2020-07-19 16:31] LABS: HEMATOCRIT 37.1 % (36.0-47.0); HEMOGLOBIN 12.1 g/dl (12.0-15.5); MEAN CORPUSCULAR HEMOGLOBIN 30.5 pg (27.0-33.0); MEAN CORPUSCULAR HGB CONC 32.6 g/dl (32.0-36.5); MEAN CORPUSCULAR VOLUME 93.5 fl (80.0-96.0); PLATELET COUNT, AUTOMATED 290 10^3/uL (150-450); RED BLOOD COUNT 3.97 10^6/uL (4.00-5.40); WHITE BLOOD COUNT 7.7 10^3/uL (4.0-10.0)
[2020-07-19 17:03] LABS: ACETAMINOPHEN LEVEL < 2.0 UG/ML (10.0-30.0); ALBUMIN 3.5 GM/DL (3.2-5.2); ALT/SGPT 20 U/L (12-78); BILIRUBIN,DIRECT 0.2 MG/DL (0.0-0.2); BILIRUBIN,TOTAL 0.4 MG/DL (0.2-1.0); BLOOD UREA NITROGEN 14 MG/DL (7-18); CALCIUM LEVEL 8.6 MG/DL (8.8-10.2); CARBON DIOXIDE LEVEL 29 MEQ/L (21-32); CHLORIDE LEVEL 101 MEQ/L (98-107); CK-MB VALUE MASS 3.5 NG/ML (<3.6); CPK CREATINE PHOSPHOKINASE 138 U/L (26-192); CREATININE FOR GFR 0.77 MG/DL (0.55-1.30); ETHYL ALCOHOL (ETHANOL) < 0.003 % (0.000-0.010); GLOMERULAR FILTRATION RATE > 60.0 (>45); GLUCOSE, FASTING 179 MG/DL (70-100); MB/CK RELATIVE INDEX 2.54 (< OR =4); POTASSIUM SERUM 4.3 MEQ/L (3.5-5.1); SALICYLATE LEVEL < 1.7 MG/DL (5.0-30.0); SODIUM LEVEL 135 MEQ/L (136-145); TOTAL PROTEIN 6.1 GM/DL (6.4-8.2); TROPONIN I < 0.02 NG/ML (< 0.10)
--- NOTE | 2020-07-19 17:03 | REP ---
INDICATION: altered COMPARISON: 07/01/2020. TECHNIQUE: PA/Lateral FINDINGS: Lungs: Clear, no infiltrate. Heart: Normal in size. Mediastinum: Mediastinal silhouette unremarkable. Pleural angles: Unremarkable.. Bones and soft tissues: Unremarkable. IMPRESSION: No acute pulmonary disease. <Electronically signed by Howard Kee > 07/19/20 [id number]
[2020-07-19 20:27] LABS: AMPHETAMINES LEVEL URINE NEGATIVE (NEGATIVE); BARBITURATES URINE NEGATIVE (NEGATIVE); BENZODIAZEPINES URINE NEGATIVE (NEGATIVE); CANNABINOIDS URINE NEGATIVE (NEGATIVE); COCAINE METABOLITE URINE NEGATIVE (NEGATIVE); METHADONE URINE NEGATIVE (NEGATIVE); OPIATES URINE NEGATIVE (NEGATIVE); PHENCYCLIDINE URINE NEGATIVE (NEGATIVE)
[2020-07-19] MEDS ORDERED: MIRT-62 PO (20:43)
[2020-07-19] MEDS ORDERED: MAALOX 30 ML SUSP *UDC PO PRN (21:00)
[2020-07-19] MEDS ORDERED: MOM 30ML SUSPENSION UDC PO PRN (21:00)
[2020-07-19] MEDS: MIRTAZAPINE 15 MG TAB PO SCH (21:30)
[2020-07-19] MEDS: BENZTROPINE 0.5 MG TAB PO SCH (21:30)
[2020-07-19] MEDS: risperiDONE 2 MG TAB PO SCH (21:30)
[2020-07-19] MEDS: METOPROLOL TART 25 MG TABLET PO SCH (21:30)
[2020-07-19] MEDS ORDERED: DICL50TAB PO (22:11)
[2020-07-19] MEDS ORDERED: LISI20TA33 PO (22:11)
[2020-07-19] MEDS ORDERED: RISP-9 PO (22:12)
[2020-07-19] MEDS ORDERED: RISP-8 PO (22:12)
[2020-07-19 22:39] VITALS: BP 108/74
[2020-07-20] MEDS: LEVOTHYROXINE 50MCG TABLET (0.05MG) PO SCH (05:57)
[2020-07-20 06:28] VITALS: BP 109/63
[2020-07-20 08:14] VITALS: BP 109/63
[2020-07-20] MEDS: CALCIUM/VITAMIN D 500 MG TAB PO SCH (08:25)
[2020-07-20] MEDS: MULTIVITAMINS/MINERALS THERAP 1 TAB PO SCH (08:25)
[2020-07-20] MEDS: BENZTROPINE 0.5 MG TAB PO SCH ×2 (08:25→20:10)
[2020-07-20] MEDS: METOPROLOL TART 25 MG TABLET PO SCH ×2 (08:26→20:11)
[2020-07-20] MEDS: VENLAFAXINE **XR** 75MG CAPSULE PO SCH (08:26)
--- NOTE | 2020-07-20 11:32 | MHHPEPDOC ---
General Date Of Admission: July 19, 2020 Legal Status: 9.13 Chief Complaint "[I think I went home too early]. History of Present Illness HISTORY OF THE PRESENT ILLNESS: Patient is a 65 -year-old , female, who [was recently discharged yesterday. Patient at that time was discharged to stay with her sister until she has a bed opened at a assisted living facility. Patient apparently didn't stay with her sister went to her own apartment and then claims that she was confused and found herself in a bathroom after having urinary incontinence. She apparently called her sister who came to her apartment and found her to be extremely regressed and withdrawn with position in about. On admission, exam patient is alert, awake, ambulating with a walker and in no acute distress. Patient stated that she couldn't wait too long to go to the assisted living and she feels] that she was discharged to soon. She is denying any paranoid fear. Denies any hallucination and appears well oriented to time, place and person. It appears that she is again showing extreme dependency and passively aggressive attitude and wanting to be in safe environment. She is not showing any major change in her mental status from the time of discharge. Psychiatric Review of Systems Depression (2 or more weeks): depressed mood, anhedonia, decreased energy Jessie (4 or more days of): denies Psychosis: denies PTSD: denies Anxiety: situational anxiety, stressor related anxiety Past Psychiatric History Previous Psychiatric Diagnosis: [Major depression, bipolar disorder]. Previous Psychiatric Admissions: [Numerous admissions just discharged on July 18]. Suicide Attempts: [No history]. Psychiatric Follow-up: [Arranged]. Psychiatric medications: [C the medication orders]. Past Medical History Head Injury: No Seizures: No Hospitalizations: No Surgeries: No Family Medical/Psychiatric HX Medical Problems Noncontributory Addiction: No Suicide Attemps/Completions: No Addiction History denies Social History Childhood: [Unremarkable]. Abuse/Trauma:[Denies]. Current Living Situation: [Lives alone]. Education: [High school]. Employment: Disabled]. Social Support: [Sisters]. Legal: [None]. Marital: [, Single]. Mental Status Examination General Appearance: unkempt, disheveled, appears stated age Build: average Demeanor: average Eye Contact: average Activity: average Behavior: cooperative Speech: clear, low in volume Mood: depressed Affect: appropriate, congruent, anxious Thought Process: logical/linear Thought Content (Delusions): none reported Thought Content (Other): none reported Thought Content (Aggressive): none reported Perception (Hallucinations): none reported Perception (Other): none reported Cognition(Intelligence Est.): borderline Oriented: Awake, Alert, Oriented times three Insight: poor Judgment: Poor Diagnoses Major depression, recurrent, severe Personality disorder, mixed A-FIB/CHADSVASC A-FIB History Current/History of A-Fib/PAF?: No Age/Risk Factor Scoring CHADSVASC: CHADSVASC Response (Comments) Value Gender Risk Factor Female 1 Hx of CHF No 0 Hx of HTN No 0 Hx of Stroke/TIA/or VTE No 0 Hx of Diabetes No 0 Hx of Vascular Disease No 0 Total 1 Treatment Treatment ordered: NONE Assessment Patient continued to exhibit marked regressed and dependent attitude. , She is clearly in need of supportive living, which has been arranged but is waiting for bed opening. Initial Treatment Plan 1. Patient was admitted on a 9.39 status. 2. Complete history was obtained. 3. With patients permission, family will be contacted and database will be expanded. 4. Patients medication regimen will be reviewed and changed accordingly. 5. Patient will be provided with protected environment. 6. Patient will be treated with individual, group, and milieu therapies. 7. Patient will receive supportive psych-education. 8. Discharge planning will commence immediately. 9. Outpatient follow-up treatment will be strongly recommended. 10. The initial treatment plan will focus initially on: * Depression. * Risk for suicide. ESTIMATED LENGTH OF STAY: 5-7 days 400 TIME SPENT COUNSELING AND COORDINATING INITIAL CARE: 40 minutes. Tobacco Cessation Screen If Patient is a Smoker non smoker N/A-No Antipsychotics Vital Signs Vital Signs Date Time Temp Pulse Resp B/P (MAP) Pulse Ox O2 Delivery O2 Flow Rate FiO2 07/20/20 08:26 70 110/68 07/20/20 08:14 99.0 18 100 Room Air Laboratory Data 24H Labs Laboratory Tests 2 07/19/20 15:47: Nucleated Red Blood Cells % (auto) 0.0, Anion Gap 5L, Glomerular Filtration Rate > 60.0, Calcium Level 8.6L, Total Bilirubin 0.4, Direct Bilirubin 0.2, Aspartate Amino Transf (AST/SGOT) 12, Alanine Aminotransferase (ALT/SGPT) 20, Alkaline Phosphatase 69, Total Creatine Kinase 138, Creatine Kinase MB 3.5, Creatine Kinase MB Relative Index 2.54, Troponin I < 0.02, Total Protein 6.1L, Albumin 3.5, Albumin/Globulin Ratio 1.3, Thyroid Stimulating Hormone (TSH) 1.690, Salicylates Level < 1.7L, Acetaminophen Level < 2.0L, Ethyl Alcohol Level < 0.003 07/19/20 15:48: Urine Color MAYA, Urine Appearance CLEAR, Urine pH 7.0, Urine Specific [place] 1.013, Urine Protein NEGATIVE, Urine Glucose (UA) NEGATIVE, Urine Ketones TRACEH, Urine Blood NEGATIVE, Urine Nitrite NEGATIVE, Urine Bilirubin NEGATIVE, Urine Urobilinogen 0.2, Urine Leukocyte Esterase NEGATIVE, Urine WBC (Auto) 1, Urine RBC (Auto) 0, Urine Hyaline Casts (Auto) 0, Urine Bacteria (Auto) NEGAT SHANNAN, Urine Squamous Epithelial Cells 0, Urine Mucus (Auto) SMALL, Urine Sperm (Auto) , Urine Opiates Screen NEGATIVE, Urine Methadone Screen NEGATIVE, Urine Barbiturates Screen NEGATIVE, Urine Phencyclidine Screen NEGATIVE, Urine Amphetamines Screen NEGATIVE, Urine Benzodiazepines Screen NEGATIVE, Urine Cocaine Metabolite Screen NEGATIVE, Urine Cannabinoids Screen NEGATIVE CBC/BMP Laboratory Tests 07/19/20 15:47 Medications Scheduled Benztropine Mesylate (Benztropine Mesylate) 0.5 Mg Tablet, 0.5 MG PO BID, (Reported) Calcium Carbonate/Vitamin D3 (Calcium 500-Vit D3 200 Tablet) 1 Each Tablet, 1 TAB PO DAILY, (Reported) Diclofenac Sodium (Diclofenac Sodium) 50 Mg Tablet.dr, 50 MG PO BID for pain, (Reported) Donepezil HCl (Donepezil HCl) 10 Mg Tablet, 10 MG PO QHS, (Reported) Levothyroxine Sodium (Synthroid) 50 Mcg Tablet, 50 MCG PO DAILY, (Reported) Lisinopril (Lisinopril) 20 Mg Tablet, 20 MG PO DAILY for blood pressure, (Reported) Metoprolol Tartrate (Metoprolol Tartrate) 25 Mg Tablet, 25 MG PO BID, (Reported) Mirtazapine (Remeron) 15 Mg Tablet, 7.5 MG PO QHS for ., (Reported) Multivitamins (Thera M Plus Tablet) 1 Each Tablet, 1 TAB PO DAILY, (Reported) Paliperidone Palmitate (Invega Trinza) 819 Mg/2.625 Ml Syringe, 819 MG IM Q3M, (Reported) Risperidone (Risperidone) 2 Mg Tablet, 2 MG PO DAILY for sleep, (Reported) Risperidone (Risperidone) 1 Mg Tablet, 1 MG PO QAM for ,, (Reported) Venlafaxine HCl (Venlafaxine HCl ER) 75 Mg Cap.er.24h, 150 MG PO DAILY, (Reported) Allergies Coded Allergies: No Known Allergies (Verified , 01/25/18) STEWART WISE M.D. July 20, 2020 11:32
--- NOTE | 2020-07-20 13:46 | ECGEPIP ---
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
[2020-07-20 16:32] VITALS: BP 99/62
[2020-07-20] MEDS: DONEPEZIL 5 MG TAB PO SCH (20:10)
[2020-07-20] MEDS: MIRTAZAPINE 15 MG TAB PO SCH (20:10)
[2020-07-20] MEDS: traZODone 50 MG TAB PO PRN (20:11)
[2020-07-20] MEDS: risperiDONE 2 MG TAB PO SCH (20:11)
[2020-07-21] MEDS: LEVOTHYROXINE 50MCG TABLET (0.05MG) PO SCH (06:11)
[2020-07-21 06:29] VITALS: BP 119/68
[2020-07-21] MEDS: VENLAFAXINE **XR** 75MG CAPSULE PO SCH (08:34)
[2020-07-21] MEDS: CALCIUM/VITAMIN D 500 MG TAB PO SCH (08:34)
[2020-07-21] MEDS: BENZTROPINE 0.5 MG TAB PO SCH ×2 (08:34→20:59)
[2020-07-21] MEDS: ACETAMINOPHEN TAB 650MG DOSE (2X325MG) PO PRN (08:35)
[2020-07-21] MEDS: METOPROLOL TART 25 MG TABLET PO SCH ×2 (08:35→20:59)
[2020-07-21] MEDS: MULTIVITAMINS/MINERALS THERAP 1 TAB PO SCH (08:37)
--- NOTE | 2020-07-21 09:01 | MHIPNPDOC ---
[facility] Progress Note Progress Note DATE OF SERVICE: 07/21/20 The patient is eating and sleeping okay and showing no bizarre behavior and not confused. She knows the date and the place and she knows that the she was broug ht in because she couldn't take care of herself. She remains quite childish regressed and perplexed, but is pleasant on approach and has no new complaints and claims she is willing to go to a supportive living HISTORY: . VITAL SIGNS: See below. NEW TEST RESULTS: . CURRENT MEDICATIONS: See below. MENTAL STATUS EXAMINATION: Patient is a 65 -year old female, who is [in no acute distress]. Speech: Is [relevant but simplistic and not productive]. Language skills are [, fair]. Thought processes including: [Relevant]. Thought content: [, Not productive and not spontaneous]. Abstract reasoning, and computation: [, Poor]. Description of associations: [, Poor]. Description of abnormal or psychotic thoughts: [Denies any hallucination or paranoia]. Judgment: [, Poor]. Insight: [very poor]. Orientation: [, Oriented to time and place and person]. Recent and remote memory: [, Fair]. Attention span and concentration: [, Poor]. Language: . Fund of knowledge: [Below average]. Mood: [, Moderately anxious]. Affect: Perplexed, and constricted . DIAGNOSES: 1. . Major depression, recurrent, severe 2. . Personality disorder, mixed 3. . ASSESSMENT: More bizarre behavior and in no acute distress but remains very dependent and regressed MANAGEMENT PLAN: [Continuing the current medicine and try to discharge her to a supportive living]. TIME SPENT: [15] minutes. Vital Signs Vital Signs Date Time Temp Pulse Resp B/P (MAP) Pulse Ox O2 Delivery O2 Flow Rate FiO2 07/21/20 08:35 75 120/70 07/21/20 08:29 Room Air 07/21/20 06:29 99.0 18 99 Current Medications Current Medications Medications (Trade) Dose Ordered Sig/Dev Route PRN Reason Start Time Stop Time Status Last Admin Dose Admin Acetaminophen (Tylenol Tab) 650 mg Q6HP PRN PO HEADACHE or DISCOMFORT 07/19/20 21:00 07/21/20 08:35 Al Hydrox/Mg Hydrox/Simethicone (Mylanta) 30 ml Q4HP PRN PO HEARTBURN/INDIGESTION 07/19/20 21:00 Benztropine Mesylate (Cogentin) 0.5 mg BID PO 07/19/20 21:00 07/21/20 08:34 Calcium/Vitamin D (Oscal D) 500 mg DAILY PO 07/20/20 09:00 07/21/20 08:34 Donepezil HCl (AriCEPT) 10 mg QHS PO 07/20/20 21:00 07/20/20 20:10 Home Med (Med Rec Complete!) ASDIRECTED XX 07/19/20 20:50 07/19/20 20:49 DC Levothyroxine Sodium (Synthroid) 50 mcg DAILY@0600 PO 07/20/20 06:00 07/21/20 06:11 Lisinopril (Prinivil) 20 mg DAILY PO 07/20/20 09:00 07/21/20 08:35 Magnesium Hydroxide (Milk Of Magnesia) 30 ml DAILYPRN PRN PO CONSTIPATION 07/19/20 21:00 Metoprolol Tartrate (Lopressor) 25 mg BID PO 07/19/20 21:00 07/21/20 08:35 Mirtazapine (Remeron) 7.5 mg QHS PO 07/19/20 21:00 07/20/20 20:10 Multivitamins (Theragram-M) 1 tab DAILY PO 07/20/20 09:00 07/21/20 08:37 Risperidone (RisperDAL) 2 mg QHS PO 07/19/20 21:00 07/20/20 20:11 Trazodone HCl (Desyrel) 50 mg QHSP PRN PO INSOMNIA 07/19/20 21:00 07/20/20 20:11 Venlafaxine HCl (Effexor Xr) 150 mg DAILY PO 07/20/20 09:00 07/21/20 08:34 Allergies Coded Allergies: No Known Allergies (Verified , 01/25/18) STEWART WISE M.D. July 21, 2020 09:01
--- NOTE | 2020-07-21 12:43 | HPE ---
HISTORY AND PHYSICAL DATE OF ADMISSION: 07/19/2020 HISTORY OF PRESENT ILLNESS: Patient was just discharged from inpatient mental health a few days ago, 07/18/2020, is now readmitted the next day. Her history and physical is therefore essentially unchanged from 07/05/2020. PAST MEDICAL HISTORY: 1. Schizoaffective disorder. 2. Bipolar disorder. 3. Memory impairment. 4. Possible Alzheimer's disease. 5. Hypertensive heart disease. 6. Hypothyroidism. 7. History of ductal carcinoma in situ. 8. Asthma. 9. Osteoporosis. 10. Lumbosacral spinal disease with an MRI on 12/19 that showed L5 pars defect, compression of L5 nerves in the neural foramina, grade 2 spondylolisthesis of L5-S1 with associated L5 pars defect, degenerative disc disease with a bulging disc, no herniation. 11. History of syndrome of inappropriate antidiuretic hormone secretion (SIADH) secondary to medications, excess water intake with chronic mild hyponatremia. SURGICAL HISTORY: 1. Left breast biopsy. 2. Left breast lumpectomy. SOCIAL HISTORY: Lives alone. Has a sister who is supposed to be helping her out. FAMILY HISTORY: Father: Dementia, hypertension. MEDICATIONS: See list. ALLERGIES: None known. PHYSICAL EXAMINATION: VITAL SIGNS: Stable. Blood pressure 120/70, pulse 75. GENERAL APPEARANCE: Alert, conversant, no distress. HEENT: Unremarkable. LUNGS: Clear. HEART: Regular without murmur. ABDOMEN: Soft, nontender. EXTREMITIES: Trace peripheral edema. Normal strength in the arms and legs. LABORATORY DATA: CBC and CMP from 07/19/2020 basically unremarkable. TSH normal. Sodium 135, which is her baseline. ASSESSMENT: She is medically stable at this time. She has no ongoing medical problems requiring hospital intervention. Current medications are appropriate for her medical conditions. Consideration should be given for placement because I do not think she does well living alone.
[2020-07-21 16:15] VITALS: BP 111/60
[2020-07-21] MEDS: traZODone 50 MG TAB PO PRN (20:58)
[2020-07-21] MEDS: DONEPEZIL 5 MG TAB PO SCH (20:58)
[2020-07-21] MEDS: MIRTAZAPINE 15 MG TAB PO SCH (20:58)
[2020-07-21] MEDS: PILL CUTTER 1 EACH XX PRN (20:58)
[2020-07-21] MEDS: risperiDONE 2 MG TAB PO SCH (20:59)
[2020-07-22] MEDS: LEVOTHYROXINE 50MCG TABLET (0.05MG) PO SCH (06:07)
[2020-07-22 06:27] VITALS: BP 148/82
[2020-07-22] MEDS: VENLAFAXINE **XR** 75MG CAPSULE PO SCH (09:30)
[2020-07-22] MEDS: MULTIVITAMINS/MINERALS THERAP 1 TAB PO SCH (09:30)
[2020-07-22] MEDS: BENZTROPINE 0.5 MG TAB PO SCH ×2 (09:30→21:28)
[2020-07-22] MEDS: CALCIUM/VITAMIN D 500 MG TAB PO SCH (09:31)
[2020-07-22] MEDS: METOPROLOL TART 25 MG TABLET PO SCH ×2 (09:48→21:35)
[2020-07-22] MEDS ORDERED: LORazepam 1 MG TAB PO ONE (11:00)
--- NOTE | 2020-07-22 11:05 | MHIPNPDOC ---
[facility] Progress Note Progress Note DATE OF SERVICE: 07/22/20 Today the patient is in bed with her eyes closed and refusing to answer questions. Nursing staff reports that she had a similar presentation yesterday and had responded better with 1 mg of lorazepam. She is been otherwise cooperating with the medications and mc routines and no acting out behavior. I will try to give her another dose of lorazepam and see if we can reduce her anxiety level HISTORY: . VITAL SIGNS: See below. NEW TEST RESULTS: . CURRENT MEDICATIONS: See below. MENTAL STATUS EXAMINATION: Patient is a [64]-year old female, who is [, very withdrawn and nonresponsive verbally]. Speech: Is [, not productive]. Language skills are [, poor]. Thought processes including: Not verbal . Thought content: [Difficult to evaluate]. Abstract reasoning, and computation: [, Poor]. Description of associations: [, Poor]. Description of abnormal or psychotic thoughts: [Unable to evaluate]. Judgment: [, Poor]. Insight: [very poor]. Orientation: [Was oriented]. Recent and remote memory: [, Poor]. Attention span and concentration: [, Poor]. Language: . Fund of knowledge: [Below average]. Mood: [, Preoccupied, anxious]. Affect: [Blunted]. DIAGNOSES: 1. . Major depression. His psychotic feature 2. . Personality disorder, mixed 3. . ASSESSMENT: MANAGEMENT PLAN: . TIME SPENT: minutes. Vital Signs Vital Signs Date Time Temp Pulse Resp B/P (MAP) Pulse Ox O2 Delivery O2 Flow Rate FiO2 07/22/20 09:48 182/92 07/22/20 06:27 99.5 94 20 96 Room Air Current Medications Current Medications Medications (Trade) Dose Ordered Sig/Dev Route PRN Reason Start Time Stop Time Status Last Admin Dose Admin Acetaminophen (Tylenol Tab) 650 mg Q6HP PRN PO HEADACHE or DISCOMFORT 07/19/20 21:00 07/21/20 08:35 Al Hydrox/Mg Hydrox/Simethicone (Mylanta) 30 ml Q4HP PRN PO HEARTBURN/INDIGESTION 07/19/20 21:00 Benztropine Mesylate (Cogentin) 0.5 mg BID PO 07/19/20 21:00 07/22/20 09:30 Calcium/Vitamin D (Oscal D) 500 mg DAILY PO 07/20/20 09:00 07/22/20 09:31 Donepezil HCl (AriCEPT) 10 mg QHS PO 07/20/20 21:00 07/21/20 20:58 Home Med (Med Rec Complete!) ASDIRECTED XX 07/19/20 20:50 07/19/20 20:49 DC Levothyroxine Sodium (Synthroid) 50 mcg DAILY@0600 PO 07/20/20 06:00 07/22/20 06:07 Lisinopril (Prinivil) 20 mg DAILY PO 07/20/20 09:00 07/22/20 09:48 Magnesium Hydroxide (Milk Of Magnesia) 30 ml DAILYPRN PRN PO CONSTIPATION 07/19/20 21:00 Metoprolol Tartrate (Lopressor) 25 mg BID PO 07/19/20 21:00 07/22/20 09:48 Mirtazapine (Remeron) 7.5 mg QHS PO 07/19/20 21:00 07/21/20 20:58 Multivitamins (Theragram-M) 1 tab DAILY PO 07/20/20 09:00 07/22/20 09:30 Risperidone (RisperDAL) 2 mg QHS PO 07/19/20 21:00 07/21/20 20:59 Trazodone HCl (Desyrel) 50 mg QHSP PRN PO INSOMNIA 07/19/20 21:00 07/21/20 20:58 Venlafaxine HCl (Effexor Xr) 150 mg DAILY PO 07/20/20 09:00 07/22/20 09:30 Allergies Coded Allergies: No Known Allergies (Verified , 01/25/18) STEWART WISE M.D. July 22, 2020 11:05
[2020-07-22 16:41] VITALS: BP 116/55
[2020-07-22] MEDS: MIRTAZAPINE 15 MG TAB PO SCH (21:27)
[2020-07-22] MEDS: LORazepam 1 MG TAB PO SCH (21:28)
[2020-07-22] MEDS: risperiDONE 2 MG TAB PO SCH (21:28)
[2020-07-22] MEDS: DONEPEZIL 5 MG TAB PO SCH (21:28)
[2020-07-23] MEDS: LEVOTHYROXINE 50MCG TABLET (0.05MG) PO SCH (06:01)
[2020-07-23] MEDS: CALCIUM/VITAMIN D 500 MG TAB PO SCH (08:28)
[2020-07-23] MEDS: MULTIVITAMINS/MINERALS THERAP 1 TAB PO SCH (08:28)
[2020-07-23] MEDS: LORazepam 1 MG TAB PO SCH ×2 (08:29→20:14)
[2020-07-23] MEDS: VENLAFAXINE **XR** 75MG CAPSULE PO SCH (08:29)
[2020-07-23] MEDS: BENZTROPINE 0.5 MG TAB PO SCH ×2 (08:30→20:16)
[2020-07-23] MEDS: ACETAMINOPHEN TAB 650MG DOSE (2X325MG) PO PRN (08:30)
[2020-07-23] MEDS: METOPROLOL TART 25 MG TABLET PO SCH ×2 (09:00→20:16)
--- NOTE | 2020-07-23 10:07 | MHIPNPDOC ---
[facility] Progress Note Progress Note DATE OF SERVICE: 07/23/20 The patient had an episode of being not responsive and almost frozen catatonic state. Yesterday. She responded to ordered dose of lorazepam and since then was given 1 mg twice a day, regular scheduled. This morning she is much more alert and responsive and able to answer questions and able to cooperate with further discussion.. She was able to describe her current living situation and an describe her family, including the twin sister and that her older brother is sick. Her memory is a little sketch, but stated able to give relevant infor mation and does not show any gross confusion. She is a little poor with her ordered. Memory, but recent memory is fairly good which seems to indicate that dementia is not a likely condition she suffers from. She is agreeable to pursue residential placement such as supportive for assisted living. HISTORY: . VITAL SIGNS: See below. NEW TEST RESULTS: . CURRENT MEDICATIONS: See below. MENTAL STATUS EXAMINATION: Patient is a 65-year old female, who is alert, cooperative, in no acute distress . Speech: Is simple but relevant. Language skills are fair. Thought processes including: , Better organized. Thought content: No gross delusions. No paranoia. Abstract reasoning, and computation: , Poor. Description of associations: For. Description of abnormal or psychotic thoughts: None. Judgment: , Poor. Insight: poor. Orientation: . She knows the year. day but not sure about date. She is oriented to place and person. Recent and remote memory: Remote memories sketchy, but recent memory appears intact. Attention span and concentration: Failure. Language: . Fund of knowledge: Below average. Mood: Moderately anxious and depressed . Affect: Blunted but appropriate. DIAGNOSES: 1. Major depression with psychotic features. 2. Personality disorder, mixed. 3. . ASSESSMENT:No basic change, but is more alert and responsive. No gross psychotic symptoms MANAGEMENT PLAN: Continue with the current medicine, including Ativan and pursue residential placement . TIME SPENT: 20 minutes. Vital Signs Vital Signs Date Time Temp Pulse Resp B/P (MAP) Pulse Ox O2 Delivery O2 Flow Rate FiO2 07/23/20 06:44 98.7 73 18 96 Room Air 07/22/20 21:35 116/58 Current Medications Current Medications Medications (Trade) Dose Ordered Sig/Dev Route PRN Reason Start Time Stop Time Status Last Admin Dose Admin Acetaminophen (Tylenol Tab) 650 mg Q6HP PRN PO HEADACHE or DISCOMFORT 07/19/20 21:00 07/23/20 08:30 Al Hydrox/Mg Hydrox/Simethicone (Mylanta) 30 ml Q4HP PRN PO HEARTBURN/INDIGESTION 07/19/20 21:00 Benztropine Mesylate (Cogentin) 0.5 mg BID PO 07/19/20 21:00 07/23/20 08:30 Calcium/Vitamin D (Oscal D) 500 mg DAILY PO 07/20/20 09:00 07/23/20 08:28 Donepezil HCl (AriCEPT) 10 mg QHS PO 07/20/20 21:00 07/22/20 21:28 Home Med (Med Rec Complete!) ASDIRECTED XX 07/19/20 20:50 07/19/20 20:49 DC Levothyroxine Sodium (Synthroid) 50 mcg DAILY@0600 PO 07/20/20 06:00 07/23/20 06:01 Lisinopril (Prinivil) 20 mg DAILY PO 07/20/20 09:00 07/22/20 09:48 Lorazepam (Ativan) 1 mg BID PO 07/22/20 21:00 07/23/20 08:29 Magnesium Hydroxide (Milk Of Magnesia) 30 ml DAILYPRN PRN PO CONSTIPATION 07/19/20 21:00 Metoprolol Tartrate (Lopressor) 25 mg BID PO 07/19/20 21:00 07/22/20 21:35 Mirtazapine (Remeron) 7.5 mg QHS PO 07/19/20 21:00 07/22/20 21:27 Multivitamins (Theragram-M) 1 tab DAILY PO 07/20/20 09:00 07/23/20 08:28 Risperidone (RisperDAL) 2 mg QHS PO 07/19/20 21:00 07/22/20 21:28 Trazodone HCl (Desyrel) 50 mg QHSP PRN PO INSOMNIA 07/19/20 21:00 07/21/20 20:58 Venlafaxine HCl (Effexor Xr) 150 mg DAILY PO 07/20/20 09:00 07/23/20 08:29 Allergies Coded Allergies: No Known Allergies (Verified , 01/25/18) STEWART WISE M.D. July 23, 2020 10:07
[2020-07-23 16:11] VITALS: BP 142/88
[2020-07-23] MEDS: traZODone 50 MG TAB PO PRN (20:14)
[2020-07-23] MEDS: MIRTAZAPINE 15 MG TAB PO SCH (20:15)
[2020-07-23] MEDS: risperiDONE 2 MG TAB PO SCH (20:15)
[2020-07-23] MEDS: DONEPEZIL 5 MG TAB PO SCH (20:16)
[2020-07-24] MEDS: LEVOTHYROXINE 50MCG TABLET (0.05MG) PO SCH (06:10)
[2020-07-24 06:28] VITALS: BP 147/87
[2020-07-24] MEDS: MULTIVITAMINS/MINERALS THERAP 1 TAB PO SCH (08:18)
[2020-07-24] MEDS: BENZTROPINE 0.5 MG TAB PO SCH ×2 (08:18→20:09)
[2020-07-24] MEDS: LORazepam 1 MG TAB PO SCH ×2 (08:18→20:09)
[2020-07-24] MEDS: CALCIUM/VITAMIN D 500 MG TAB PO SCH (08:19)
[2020-07-24] MEDS: VENLAFAXINE **XR** 75MG CAPSULE PO SCH (08:20)
[2020-07-24] MEDS: METOPROLOL TART 25 MG TABLET PO SCH ×2 (08:20→20:10)
[2020-07-24] MEDS: ACETAMINOPHEN TAB 650MG DOSE (2X325MG) PO PRN (08:21)
--- NOTE | 2020-07-24 10:55 | MHIPNPDOC ---
[facility] Progress Note Progress Note DATE OF SERVICE: 07/24/20 Patient is more alert, responsive, and greets the M.D. with the appropriate remarks and stated that she is feeling good today. She is asking for discharge with assisted living and is willing to cooperate and has no new complaints. She is being referred to to on the assisted living and transitional living service. In the meantime HISTORY: . VITAL SIGNS: See below. NEW TEST RESULTS: . CURRENT MEDICATIONS: See below. MENTAL STATUS EXAMINATION: Patient is a 65-year old female, who is , pleasant. Speech: Is a little more productive. Language skills are fair. Thought processes including: Relevant. Thought content: , No delusional thinking. Abstract reasoning, and computation: , Poor. Description of associations: , Better organized. Description of abnormal or psychotic thoughts: Denies any hallucination. Judgment: Fair. Insight: poor. Orientation: , Oriented to person and place. Recent and remote memory: Spotty. Attention span and concentration: , Poor. Language: . Fund of knowledge: , Poor. Mood: Euthymic. Affect: blunted]. DIAGNOSES: 1. . Major depression. His psychotic feature 2. . 3. . ASSESSMENT:Showing some improvement MANAGEMENT PLAN: . Continue with the current medicine and arrange for supportive living. TIME SPENT: 15 minutes. Vital Signs Vital Signs Date Time Temp Pulse Resp B/P (MAP) Pulse Ox O2 Delivery O2 Flow Rate FiO2 07/24/20 08:20 147/87 07/24/20 08:20 72 07/24/20 06:28 98.9 16 95 Room Air Current Medications Current Medications Medications (Trade) Dose Ordered Sig/Dev Route PRN Reason Start Time Stop Time Status Last Admin Dose Admin Acetaminophen (Tylenol Tab) 650 mg Q6HP PRN PO HEADACHE or DISCOMFORT 07/19/20 21:00 07/24/20 08:21 Al Hydrox/Mg Hydrox/Simethicone (Mylanta) 30 ml Q4HP PRN PO HEARTBURN/INDIGESTION 07/19/20 21:00 Benztropine Mesylate (Cogentin) 0.5 mg BID PO 07/19/20 21:00 07/24/20 08:18 Calcium/Vitamin D (Oscal D) 500 mg DAILY PO 07/20/20 09:00 07/24/20 08:19 Donepezil HCl (AriCEPT) 10 mg QHS PO 07/20/20 21:00 07/23/20 20:16 Home Med (Med Rec Complete!) ASDIRECTED XX 07/19/20 20:50 07/19/20 20:49 DC Levothyroxine Sodium (Synthroid) 50 mcg DAILY@0600 PO 07/20/20 06:00 07/24/20 06:10 Lisinopril (Prinivil) 20 mg DAILY PO 07/20/20 09:00 07/24/20 08:20 Lorazepam (Ativan) 1 mg BID PO 07/22/20 21:00 07/24/20 08:18 Magnesium Hydroxide (Milk Of Magnesia) 30 ml DAILYPRN PRN PO CONSTIPATION 07/19/20 21:00 Metoprolol Tartrate (Lopressor) 25 mg BID PO 07/19/20 21:00 07/24/20 08:20 Mirtazapine (Remeron) 7.5 mg QHS PO 07/19/20 21:00 07/23/20 20:15 Multivitamins (Theragram-M) 1 tab DAILY PO 07/20/20 09:00 07/24/20 08:18 Risperidone (RisperDAL) 2 mg QHS PO 07/19/20 21:00 07/23/20 20:15 Trazodone HCl (Desyrel) 50 mg QHSP PRN PO INSOMNIA 07/19/20 21:00 07/23/20 20:14 Venlafaxine HCl (Effexor Xr) 150 mg DAILY PO 07/20/20 09:00 07/24/20 08:20 Allergies Coded Allergies: No Known Allergies (Verified , 01/25/18) STEWART WISE M.D. July 24, 2020 10:55
[2020-07-24 18:06] VITALS: BP 92/82
[2020-07-24] MEDS: MIRTAZAPINE 15 MG TAB PO SCH (20:09)
[2020-07-24] MEDS: DONEPEZIL 5 MG TAB PO SCH (20:10)
[2020-07-24] MEDS: risperiDONE 2 MG TAB PO SCH (20:10)
[2020-07-25] MEDS: LEVOTHYROXINE 50MCG TABLET (0.05MG) PO SCH (05:49)
[2020-07-25 06:41] VITALS: BP 142/84
[2020-07-25] MEDS: ACETAMINOPHEN TAB 650MG DOSE (2X325MG) PO PRN (09:12)
[2020-07-25] MEDS: MULTIVITAMINS/MINERALS THERAP 1 TAB PO SCH (09:13)
[2020-07-25] MEDS: CALCIUM/VITAMIN D 500 MG TAB PO SCH (09:13)
[2020-07-25] MEDS: VENLAFAXINE **XR** 75MG CAPSULE PO SCH (09:13)
[2020-07-25] MEDS: LORazepam 1 MG TAB PO SCH ×2 (09:14→20:09)
[2020-07-25] MEDS: BENZTROPINE 0.5 MG TAB PO SCH ×2 (09:14→20:09)
[2020-07-25] MEDS: METOPROLOL TART 25 MG TABLET PO SCH ×2 (09:15→20:10)
--- NOTE | 2020-07-25 10:47 | MHIPNPDOC ---
[facility] Progress Note Progress Note DATE OF SERVICE: 07/25/20 The patient is maintaining somewhat improved mental status and behavior. She has no complaint today and reports feeling pretty good. She is fully understanding the discharge plan for supportive living or transitional living and referral has been done and we are waiting for the response. In the meantime, she is fully cooperating and not showing any confusion or suicidal behavior. HISTORY: . VITAL SIGNS: See below. NEW TEST RESULTS: . CURRENT MEDICATIONS: See below. MENTAL STATUS EXAMINATION: Patient is a 65 -year old female, who is , pleasant, in no acute distress. Speech: Is , relevant, but not productive. Language skills are fair. Thought processes including: , Relevant. Thought content: No suicidal thoughts. Abstract reasoning, and computation: Poor . Description of associations: , Relevant. Description of abnormal or psychotic thoughts: None. Judgment: , Poor. Insight: poor. Orientation: , Oriented. Recent and remote memory: . Fair Attention span and concentration: Fair. Language: . Fund of knowledge: [Below average]. Mood: [Euthymic]. Affect: [Blunted but appropriate]. DIAGNOSES: 1. . Major depression. His psychotic feature 2. ., Rule out schizoaffective disorder 3. . ASSESSMENT:[Appears to be at her baseline] MANAGEMENT PLAN: [Referring to supportive living or transitional living]. TIME SPENT: [15] minutes. Vital Signs Vital Signs Date Time Temp Pulse Resp B/P (MAP) Pulse Ox O2 Delivery O2 Flow Rate FiO2 07/25/20 09:15 122/72 07/25/20 06:41 98.3 61 18 95 Room Air Current Medications Current Medications Medications (Trade) Dose Ordered Sig/Dev Route PRN Reason Start Time Stop Time Status Last Admin Dose Admin Acetaminophen (Tylenol Tab) 650 mg Q6HP PRN PO HEADACHE or DISCOMFORT 07/19/20 21:00 07/25/20 09:12 Al Hydrox/Mg Hydrox/Simethicone (Mylanta) 30 ml Q4HP PRN PO HEARTBURN/INDIGESTION 07/19/20 21:00 Benztropine Mesylate (Cogentin) 0.5 mg BID PO 07/19/20 21:00 07/25/20 09:14 Calcium/Vitamin D (Oscal D) 500 mg DAILY PO 07/20/20 09:00 07/25/20 09:13 Donepezil HCl (AriCEPT) 10 mg QHS PO 07/20/20 21:00 07/24/20 20:10 Home Med (Med Rec Complete!) ASDIRECTED XX 07/19/20 20:50 07/19/20 20:49 DC Levothyroxine Sodium (Synthroid) 50 mcg DAILY@0600 PO 07/20/20 06:00 07/25/20 05:49 Lisinopril (Prinivil) 20 mg DAILY PO 07/20/20 09:00 07/25/20 09:15 Lorazepam (Ativan) 1 mg BID PO 07/22/20 21:00 07/25/20 09:14 Magnesium Hydroxide (Milk Of Magnesia) 30 ml DAILYPRN PRN PO CONSTIPATION 07/19/20 21:00 Metoprolol Tartrate (Lopressor) 25 mg BID PO 07/19/20 21:00 07/25/20 09:15 Mirtazapine (Remeron) 7.5 mg QHS PO 07/19/20 21:00 07/24/20 20:09 Multivitamins (Theragram-M) 1 tab DAILY PO 07/20/20 09:00 07/25/20 09:13 Risperidone (RisperDAL) 2 mg QHS PO 07/19/20 21:00 07/24/20 20:10 Trazodone HCl (Desyrel) 50 mg QHSP PRN PO INSOMNIA 07/19/20 21:00 07/23/20 20:14 Venlafaxine HCl (Effexor Xr) 150 mg DAILY PO 07/20/20 09:00 07/25/20 09:13 Allergies Coded Allergies: No Known Allergies (Verified , 01/25/18) STEWART WISE M.D. July 25, 2020 10:47
[2020-07-25 16:04] VITALS: BP 121/59
[2020-07-25] MEDS: DONEPEZIL 5 MG TAB PO SCH (20:09)
[2020-07-25] MEDS: risperiDONE 2 MG TAB PO SCH (20:09)
[2020-07-25] MEDS: MIRTAZAPINE 15 MG TAB PO SCH (20:10)
[2020-07-26] MEDS: LEVOTHYROXINE 50MCG TABLET (0.05MG) PO SCH (05:30)
[2020-07-26 06:13] VITALS: BP 103/55
[2020-07-26] MEDS: CALCIUM/VITAMIN D 500 MG TAB PO SCH (08:07)
[2020-07-26] MEDS: MULTIVITAMINS/MINERALS THERAP 1 TAB PO SCH (08:08)
[2020-07-26] MEDS: VENLAFAXINE **XR** 75MG CAPSULE PO SCH (08:08)
[2020-07-26] MEDS: LORazepam 1 MG TAB PO SCH ×2 (08:09→20:20)
[2020-07-26] MEDS: METOPROLOL TART 25 MG TABLET PO SCH ×2 (08:10→20:21)
[2020-07-26] MEDS: BENZTROPINE 0.5 MG TAB PO SCH ×2 (08:10→20:21)
[2020-07-26] MEDS: ACETAMINOPHEN TAB 650MG DOSE (2X325MG) PO PRN (08:11)
--- NOTE | 2020-07-26 11:00 | MHIPNPDOC ---
[facility] Progress Note Progress Note DATE OF SERVICE: 07/26/20 The patient is a little more productive and is answering questions easily and relevant. She knows that they date and well oriented to place. Her fund of information is very poor and started to answer either him or to most other questions. She is a however, wondering when can she be discharged, but when reminded of the event leading to this readmission. Patient claims that she doesn't remember the details and becoming very basic. She remains very dependent and regressed but no gross confusion. She is willing to accept assisted living and cooperated with the referral to transitional living. HISTORY: . VITAL SIGNS: See below. NEW TEST RESULTS: . CURRENT MEDICATIONS: See below. MENTAL STATUS EXAMINATION: Patient is a 65 -year old female, who is [, fairly well groomed]. Speech: Is [relevant and productive at times]. Language skills are [fair]. Thought processes including: [Relevant and coherent]. Thought content: [Denies any serious depression or suicidal thoughts]. Abstract reasoning, and computation: Poor . Description of associations: [Relevant]. Description of abnormal or psychotic thoughts: [Denies any hallucination or paranoia]. Judgment: [, Poor]. Insight: [very poor]. Orientation: [, Oriented to time and place]. Recent and remote memory: [, Poor]. Attention span and concentration: [, Poor]. Language: . Fund of knowledge: , Poor. Mood: Only mildly anxious . Affect: , Appropriate. DIAGNOSES: 1. . Major depression with psychotic feature 2. . 3. . ASSESSMENT:[Appears to be almost close to her baseline, but remains dependent and regressed] MANAGEMENT PLAN: Being referred to transitional living. TIME SPENT: 15 minutes. Vital Signs Vital Signs Date Time Temp Pulse Resp B/P (MAP) Pulse Ox O2 Delivery O2 Flow Rate FiO2 07/26/20 08:10 135/66 07/26/20 08:10 89 07/26/20 06:13 98.3 16 100 Room Air Current Medications Current Medications Medications (Trade) Dose Ordered Sig/Dev Route PRN Reason Start Time Stop Time Status Last Admin Dose Admin Acetaminophen (Tylenol Tab) 650 mg Q6HP PRN PO HEADACHE or DISCOMFORT 07/19/20 21:00 07/26/20 08:11 Al Hydrox/Mg Hydrox/Simethicone (Mylanta) 30 ml Q4HP PRN PO HEARTBURN/INDIGESTION 07/19/20 21:00 Benztropine Mesylate (Cogentin) 0.5 mg BID PO 07/19/20 21:00 07/26/20 08:10 Calcium/Vitamin D (Oscal D) 500 mg DAILY PO 07/20/20 09:00 07/26/20 08:07 Donepezil HCl (AriCEPT) 10 mg QHS PO 07/20/20 21:00 07/25/20 20:09 Home Med (Med Rec Complete!) ASDIRECTED XX 07/19/20 20:50 07/19/20 20:49 DC Levothyroxine Sodium (Synthroid) 50 mcg DAILY@0600 PO 07/20/20 06:00 07/26/20 05:30 Lisinopril (Prinivil) 20 mg DAILY PO 07/20/20 09:00 07/26/20 08:10 Lorazepam (Ativan) 1 mg BID PO 07/22/20 21:00 07/26/20 08:09 Magnesium Hydroxide (Milk Of Magnesia) 30 ml DAILYPRN PRN PO CONSTIPATION 07/19/20 21:00 Metoprolol Tartrate (Lopressor) 25 mg BID PO 07/19/20 21:00 07/26/20 08:10 Mirtazapine (Remeron) 7.5 mg QHS PO 07/19/20 21:00 07/25/20 20:10 Multivitamins (Theragram-M) 1 tab DAILY PO 07/20/20 09:00 07/26/20 08:08 Risperidone (RisperDAL) 2 mg QHS PO 07/19/20 21:00 07/25/20 20:09 Trazodone HCl (Desyrel) 50 mg QHSP PRN PO INSOMNIA 07/19/20 21:00 07/23/20 20:14 Venlafaxine HCl (Effexor Xr) 150 mg DAILY PO 07/20/20 09:00 07/26/20 08:08 Allergies Coded Allergies: No Known Allergies (Verified , 01/25/18) STEWART WISE M.D. July 26, 2020 11:00
[2020-07-26 18:24] VITALS: BP 136/78
[2020-07-26] MEDS: MIRTAZAPINE 15 MG TAB PO SCH (20:21)
[2020-07-26] MEDS: DONEPEZIL 5 MG TAB PO SCH (20:21)
[2020-07-26] MEDS: risperiDONE 2 MG TAB PO SCH (20:21)
[2020-07-27] MEDS: LEVOTHYROXINE 50MCG TABLET (0.05MG) PO SCH (05:34)
[2020-07-27 06:36] VITALS: BP 144/82
[2020-07-27] MEDS: MULTIVITAMINS/MINERALS THERAP 1 TAB PO SCH (08:16)
[2020-07-27] MEDS: CALCIUM/VITAMIN D 500 MG TAB PO SCH (08:17)
[2020-07-27] MEDS: VENLAFAXINE **XR** 75MG CAPSULE PO SCH (08:17)
[2020-07-27] MEDS: ACETAMINOPHEN TAB 650MG DOSE (2X325MG) PO PRN (08:17)
[2020-07-27] MEDS: LORazepam 1 MG TAB PO SCH ×2 (08:18→20:30)
[2020-07-27] MEDS: METOPROLOL TART 25 MG TABLET PO SCH ×2 (08:18→20:31)
[2020-07-27] MEDS: BENZTROPINE 0.5 MG TAB PO SCH ×2 (08:18→20:31)
[2020-07-27 16:48] VITALS: BP 127/71
[2020-07-27] MEDS: DONEPEZIL 5 MG TAB PO SCH (20:30)
[2020-07-27] MEDS: risperiDONE 2 MG TAB PO SCH (20:30)
[2020-07-27] MEDS: MIRTAZAPINE 15 MG TAB PO SCH (20:31)
[2020-07-28] MEDS: LEVOTHYROXINE 50MCG TABLET (0.05MG) PO SCH (05:38)
[2020-07-28 06:39] VITALS: BP 149/85
[2020-07-28] MEDS: ACETAMINOPHEN TAB 650MG DOSE (2X325MG) PO PRN (08:16)
[2020-07-28] MEDS: LORazepam 1 MG TAB PO SCH ×2 (08:16→20:26)
[2020-07-28] MEDS: METOPROLOL TART 25 MG TABLET PO SCH ×2 (08:17→20:26)
[2020-07-28] MEDS: MULTIVITAMINS/MINERALS THERAP 1 TAB PO SCH (08:17)
[2020-07-28] MEDS: VENLAFAXINE **XR** 75MG CAPSULE PO SCH (08:17)
[2020-07-28] MEDS: CALCIUM/VITAMIN D 500 MG TAB PO SCH (08:17)
[2020-07-28] MEDS: BENZTROPINE 0.5 MG TAB PO SCH ×2 (08:17→20:25)
[2020-07-28 18:06] VITALS: BP 154/90
[2020-07-28] MEDS: PILL CUTTER 1 EACH XX PRN (20:25)
[2020-07-28] MEDS: MIRTAZAPINE 15 MG TAB PO SCH (20:25)
[2020-07-28] MEDS: risperiDONE 2 MG TAB PO SCH (20:26)
[2020-07-28] MEDS: DONEPEZIL 5 MG TAB PO SCH (20:26)
[2020-07-29] MEDS: LEVOTHYROXINE 50MCG TABLET (0.05MG) PO SCH (05:57)
[2020-07-29 07:07] VITALS: BP 140/79
[2020-07-29] MEDS: CALCIUM/VITAMIN D 500 MG TAB PO SCH (08:10)
[2020-07-29] MEDS: MULTIVITAMINS/MINERALS THERAP 1 TAB PO SCH (08:11)
[2020-07-29] MEDS: METOPROLOL TART 25 MG TABLET PO SCH ×2 (08:11→20:36)
[2020-07-29] MEDS: BENZTROPINE 0.5 MG TAB PO SCH ×2 (08:11→20:36)
[2020-07-29] MEDS: VENLAFAXINE **XR** 75MG CAPSULE PO SCH (08:11)
[2020-07-29] MEDS: LORazepam 1 MG TAB PO SCH ×2 (08:12→20:36)
[2020-07-29] MEDS: ACETAMINOPHEN TAB 650MG DOSE (2X325MG) PO PRN (08:13)
--- NOTE | 2020-07-29 11:54 | MHIPNPDOC ---
[facility] Progress Note Progress Note DATE OF SERVICE: 07/29/20 The patient is cooperating with the medicine and has no new complaints. She is more alert and oriented, spending more time with other patients. Today the patie nt is asking when and if she can be discharged. She is not as afraid of being alone and feels she can go home by herself. We will see if we can arrange some extra support and supervision HISTORY: . VITAL SIGNS: See below. NEW TEST RESULTS: . CURRENT MEDICATIONS: See below. MENTAL STATUS EXAMINATION: Patient is a 65-year old female, who is in no acute distress. Speech: Is relevant. Language skills are fair. Thought processes including: , Organized and more productive. Thought content: No gross delusions and denies any fear or suicidal thoughts. Abstract reasoning, and computation: , Poor. Description of associations: Relevant. Description of abnormal or psychotic thoughts: Non-. Judgment: Fair. Insight: poor. Orientation: , Oriented to place and person. Recent and remote memory: Fair. Attention span and concentration: poor. Language: . Fund of knowledge: [Below average]. Mood: [Euthymic]. Affect: [More animated]. DIAGNOSES: 1. . Schizoaffective disorder 2. ., Rule out major depression with psychotic feature 3. . ASSESSMENT:[Showing some improvement] MANAGEMENT PLAN: [Consider discharge 8 with the extra support if supervised living is not available]. TIME SPENT: [20] minutes. Vital Signs Vital Signs Date Time Temp Pulse Resp B/P (MAP) Pulse Ox O2 Delivery O2 Flow Rate FiO2 07/29/20 08:11 70 140/79 07/29/20 07:07 98.8 20 98 Room Air Current Medications Current Medications Medications (Trade) Dose Ordered Sig/Dev Route PRN Reason Start Time Stop Time Status Last Admin Dose Admin Acetaminophen (Tylenol Tab) 650 mg Q6HP PRN PO HEADACHE or DISCOMFORT 07/19/20 21:00 07/29/20 08:13 Al Hydrox/Mg Hydrox/Simethicone (Mylanta) 30 ml Q4HP PRN PO HEARTBURN/INDIGESTION 07/19/20 21:00 Benztropine Mesylate (Cogentin) 0.5 mg BID PO 07/19/20 21:00 07/29/20 08:11 Calcium/Vitamin D (Oscal D) 500 mg DAILY PO 07/20/20 09:00 07/29/20 08:10 Donepezil HCl (AriCEPT) 10 mg QHS PO 07/20/20 21:00 07/28/20 20:26 Home Med (Med Rec Complete!) ASDIRECTED XX 07/19/20 20:50 07/19/20 20:49 DC Levothyroxine Sodium (Synthroid) 50 mcg DAILY@0600 PO 07/20/20 06:00 07/29/20 05:57 Lisinopril (Prinivil) 20 mg DAILY PO 07/20/20 09:00 07/29/20 08:10 Lorazepam (Ativan) 1 mg BID PO 07/22/20 21:00 07/29/20 08:12 Magnesium Hydroxide (Milk Of Magnesia) 30 ml DAILYPRN PRN PO CONSTIPATION 07/19/20 21:00 Metoprolol Tartrate (Lopressor) 25 mg BID PO 07/19/20 21:00 07/29/20 08:11 Mirtazapine (Remeron) 7.5 mg QHS PO 07/19/20 21:00 07/28/20 20:25 Multivitamins (Theragram-M) 1 tab DAILY PO 07/20/20 09:00 07/29/20 08:11 Risperidone (RisperDAL) 2 mg QHS PO 07/19/20 21:00 07/28/20 20:26 Trazodone HCl (Desyrel) 50 mg QHSP PRN PO INSOMNIA 07/19/20 21:00 07/23/20 20:14 Venlafaxine HCl (Effexor Xr) 150 mg DAILY PO 07/20/20 09:00 07/29/20 08:11 Allergies Coded Allergies: No Known Allergies (Verified , 01/25/18) STEWART WISE M.D. July 29, 2020 11:54
[2020-07-29 18:51] VITALS: BP 140/81
[2020-07-29] MEDS: MIRTAZAPINE 15 MG TAB PO SCH (20:36)
[2020-07-29] MEDS: risperiDONE 2 MG TAB PO SCH (20:36)
[2020-07-29] MEDS: DONEPEZIL 5 MG TAB PO SCH (20:36)
[2020-07-29] MEDS: PILL CUTTER 1 EACH XX PRN (20:36)
[2020-07-30] MEDS: LEVOTHYROXINE 50MCG TABLET (0.05MG) PO SCH (05:58)
[2020-07-30 06:33] VITALS: BP 126/59
[2020-07-30] MEDS: CALCIUM/VITAMIN D 500 MG TAB PO SCH (08:44)
[2020-07-30] MEDS: ACETAMINOPHEN TAB 650MG DOSE (2X325MG) PO PRN (08:44)
[2020-07-30] MEDS: LORazepam 1 MG TAB PO SCH ×2 (08:45→20:15)
[2020-07-30] MEDS: VENLAFAXINE **XR** 75MG CAPSULE PO SCH (08:45)
[2020-07-30] MEDS: MULTIVITAMINS/MINERALS THERAP 1 TAB PO SCH (08:45)
[2020-07-30] MEDS: METOPROLOL TART 25 MG TABLET PO SCH ×2 (08:45→20:16)
[2020-07-30] MEDS: BENZTROPINE 0.5 MG TAB PO SCH ×2 (08:45→20:16)
--- NOTE | 2020-07-30 11:07 | MHIPNPDOC ---
[facility] Progress Note Progress Note DATE OF SERVICE: 07/30/20 . The patient remained in same. Mental status with the same behavior. She is cooperating with the medicine is alert, awake and not confused. She is a however clarifying that she didn't mean to go back to her home and wants to be in a place like her home, meaning that she wants some type of supportive living. HISTORY: . VITAL SIGNS: See below. NEW TEST RESULTS: . CURRENT MEDICATIONS: See below. MENTAL STATUS EXAMINATION: Patient is a 65 -year old female, who is in no acute distress. Speech: Is [place], but relevant. Language skills are fair. Thought processes including: Relevant. Thought content: . No gross psychotic symptoms and denies any active suicidal thoughts. Abstract reasoning, and computation: , Poor. Description of associations: Relevant. Description of abnormal or psychotic thoughts: Denies any hallucination or paranoia. Judgment: , Poor. Insight: poor]. Orientation: , Oriented to place and person. Recent and remote memory: , Only fair. Attention span and concentration: poor. Language: . Fund of knowledge: poor]. Mood: . Affect: Blunted but appropriate. DIAGNOSES: 1. . Major depression with psychotic feature 2. . 3. . 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 TIME SPENT: 15 minutes. Vital Signs Vital Signs Date Time Temp Pulse Resp B/P (MAP) Pulse Ox O2 Delivery O2 Flow Rate FiO2 07/30/20 08:45 72 118/70 07/30/20 06:33 97.4 18 95 Room Air Current Medications Current Medications Medications (Trade) Dose Ordered Sig/Dev Route PRN Reason Start Time Stop Time Status Last Admin Dose Admin Acetaminophen (Tylenol Tab) 650 mg Q6HP PRN PO HEADACHE or DISCOMFORT 07/19/20 21:00 07/30/20 08:44 Al Hydrox/Mg Hydrox/Simethicone (Mylanta) 30 ml Q4HP PRN PO HEARTBURN/INDIGESTION 07/19/20 21:00 Benztropine Mesylate (Cogentin) 0.5 mg BID PO 07/19/20 21:00 07/30/20 08:45 Calcium/Vitamin D (Oscal D) 500 mg DAILY PO 07/20/20 09:00 07/30/20 08:44 Donepezil HCl (AriCEPT) 10 mg QHS PO 07/20/20 21:00 07/29/20 20:36 Home Med (Med Rec Complete!) ASDIRECTED XX 07/19/20 20:50 07/19/20 20:49 DC Levothyroxine Sodium (Synthroid) 50 mcg DAILY@0600 PO 07/20/20 06:00 07/30/20 05:58 Lisinopril (Prinivil) 20 mg DAILY PO 07/20/20 09:00 07/30/20 08:45 Lorazepam (Ativan) 1 mg BID PO 07/22/20 21:00 07/30/20 08:45 Magnesium Hydroxide (Milk Of Magnesia) 30 ml DAILYPRN PRN PO CONSTIPATION 07/19/20 21:00 Metoprolol Tartrate (Lopressor) 25 mg BID PO 07/19/20 21:00 07/30/20 08:45 Mirtazapine (Remeron) 7.5 mg QHS PO 07/19/20 21:00 07/29/20 20:36 Multivitamins (Theragram-M) 1 tab DAILY PO 07/20/20 09:00 07/30/20 08:45 Risperidone (RisperDAL) 2 mg QHS PO 07/19/20 21:00 07/29/20 20:36 Trazodone HCl (Desyrel) 50 mg QHSP PRN PO INSOMNIA 07/19/20 21:00 07/23/20 20:14 Venlafaxine HCl (Effexor Xr) 150 mg DAILY PO 07/20/20 09:00 07/30/20 08:45 Allergies Coded Allergies: No Known Allergies (Verified , 01/25/18) STEWART WISE M.D. July 30, 2020 11:07
[2020-07-30 16:09] VITALS: BP 108/67
[2020-07-30] MEDS: PILL CUTTER 1 EACH XX PRN (20:15)
[2020-07-30] MEDS: DONEPEZIL 5 MG TAB PO SCH (20:16)
[2020-07-30] MEDS: traZODone 50 MG TAB PO PRN (20:16)
[2020-07-30] MEDS: MIRTAZAPINE 15 MG TAB PO SCH (20:16)
[2020-07-30] MEDS: risperiDONE 2 MG TAB PO SCH (20:16)
[2020-07-31] MEDS: LEVOTHYROXINE 50MCG TABLET (0.05MG) PO SCH (05:56)
[2020-07-31 06:55] VITALS: BP 118/78
[2020-07-31] MEDS: MULTIVITAMINS/MINERALS THERAP 1 TAB PO SCH (08:22)
[2020-07-31] MEDS: BENZTROPINE 0.5 MG TAB PO SCH ×2 (08:22→20:20)
[2020-07-31] MEDS: CALCIUM/VITAMIN D 500 MG TAB PO SCH (08:22)
[2020-07-31] MEDS: ACETAMINOPHEN TAB 650MG DOSE (2X325MG) PO PRN (08:22)
[2020-07-31] MEDS: VENLAFAXINE **XR** 75MG CAPSULE PO SCH (08:23)
[2020-07-31] MEDS: METOPROLOL TART 25 MG TABLET PO SCH ×2 (08:23→20:20)
[2020-07-31] MEDS: LORazepam 1 MG TAB PO SCH ×2 (08:23→20:20)
--- NOTE | 2020-07-31 10:53 | MHIPNPDOC ---
[facility] Progress Note Progress Note DATE OF SERVICE: 07/31/20 Patient is maintaining fairly stable mental status without any acute psychotic symptoms and denies any suicidal thoughts. She is however very limited in her in sight and remains a very dependent and regressed, and clearly needs supervised supportive living arrangement. HISTORY: . VITAL SIGNS: See below. NEW TEST RESULTS: . CURRENT MEDICATIONS: See below. MENTAL STATUS EXAMINATION: Patient is a 65-year old female, who is in no acute distress. Speech: Is simplistic. Language skills are failure. Thought processes including: Relevant, but not productive. Thought content: [No gross delusions and no suicidal thoughts. Abstract reasoning, and computation: For. Description of associations: Relevant. Description of abnormal or psychotic thoughts: Denies any. Judgment: poor. Insight: very poor. Orientation: , Oriented. Recent and remote memory: , Fair. Attention span and concentration: , Poor. Language: . Fund of knowledge: [, Poor]. Mood: [Moderately depressed]. Affect: [, Appropriate, but blunted]. DIAGNOSES: 1. . Major depression with psychotic feature 2. . 3. . ASSESSMENT:[Appears to be at her baseline, but extremely regressed and dependent] MANAGEMENT PLAN: [Pursue supportive living]. TIME SPENT: 15 minutes. Vital Signs Vital Signs Date Time Temp Pulse Resp B/P (MAP) Pulse Ox O2 Delivery O2 Flow Rate FiO2 07/31/20 08:23 77 118/78 07/31/20 06:55 98.1 19 98 Room Air Current Medications Current Medications Medications (Trade) Dose Ordered Sig/Dev Route PRN Reason Start Time Stop Time Status Last Admin Dose Admin Acetaminophen (Tylenol Tab) 650 mg Q6HP PRN PO HEADACHE or DISCOMFORT 07/19/20 21:00 07/31/20 08:22 Al Hydrox/Mg Hydrox/Simethicone (Mylanta) 30 ml Q4HP PRN PO HEARTBURN/INDIGESTION 07/19/20 21:00 Benztropine Mesylate (Cogentin) 0.5 mg BID PO 07/19/20 21:00 07/31/20 08:22 Calcium/Vitamin D (Oscal D) 500 mg DAILY PO 07/20/20 09:00 07/31/20 08:22 Donepezil HCl (AriCEPT) 10 mg QHS PO 07/20/20 21:00 07/30/20 20:16 Home Med (Med Rec Complete!) ASDIRECTED XX 07/19/20 20:50 07/19/20 20:49 DC Levothyroxine Sodium (Synthroid) 50 mcg DAILY@0600 PO 07/20/20 06:00 07/31/20 05:56 Lisinopril (Prinivil) 20 mg DAILY PO 07/20/20 09:00 07/31/20 08:23 Lorazepam (Ativan) 1 mg BID PO 07/22/20 21:00 07/31/20 08:23 Magnesium Hydroxide (Milk Of Magnesia) 30 ml DAILYPRN PRN PO CONSTIPATION 07/19/20 21:00 Metoprolol Tartrate (Lopressor) 25 mg BID PO 07/19/20 21:00 07/31/20 08:23 Mirtazapine (Remeron) 7.5 mg QHS PO 07/19/20 21:00 07/30/20 20:16 Multivitamins (Theragram-M) 1 tab DAILY PO 07/20/20 09:00 07/31/20 08:22 Risperidone (RisperDAL) 2 mg QHS PO 07/19/20 21:00 07/30/20 20:16 Trazodone HCl (Desyrel) 50 mg QHSP PRN PO INSOMNIA 07/19/20 21:00 07/30/20 20:16 Venlafaxine HCl (Effexor Xr) 150 mg DAILY PO 07/20/20 09:00 07/31/20 08:23 Allergies Coded Allergies: No Known Allergies (Verified , 01/25/18) STEWART WISE M.D. July 31, 2020 10:53
[2020-07-31 16:12] VITALS: BP 117/70
[2020-07-31] MEDS: MIRTAZAPINE 15 MG TAB PO SCH (20:19)
[2020-07-31] MEDS: risperiDONE 2 MG TAB PO SCH (20:20)
[2020-07-31] MEDS: DONEPEZIL 5 MG TAB PO SCH (20:20)
[2020-08-01] MEDS: LEVOTHYROXINE 50MCG TABLET (0.05MG) PO SCH (05:58)
[2020-08-01 06:24] VITALS: BP 126/74
[2020-08-01] MEDS: CALCIUM/VITAMIN D 500 MG TAB PO SCH (08:34)
[2020-08-01] MEDS: BENZTROPINE 0.5 MG TAB PO SCH ×2 (08:34→20:23)
[2020-08-01] MEDS: METOPROLOL TART 25 MG TABLET PO SCH ×2 (08:35→20:24)
[2020-08-01] MEDS: LORazepam 1 MG TAB PO SCH ×2 (08:35→20:23)
[2020-08-01] MEDS: MULTIVITAMINS/MINERALS THERAP 1 TAB PO SCH (08:35)
[2020-08-01] MEDS: VENLAFAXINE **XR** 75MG CAPSULE PO SCH (08:35)
[2020-08-01] MEDS: ACETAMINOPHEN TAB 650MG DOSE (2X325MG) PO PRN (08:36)
--- NOTE | 2020-08-01 10:51 | MHIPNPDOC ---
[facility] Progress Note Progress Note DATE OF SERVICE: 08/01/20 Patient has cooperated with interview with another agency yesterday. She is willing to go to a supportive living and is fully cooperating with medications and referred to supportive living agents. She is spending more time outside of the room appears more spontaneous and more animated and offers no new complaints. HISTORY: . VITAL SIGNS: See below. NEW TEST RESULTS: . CURRENT MEDICATIONS: See below. MENTAL STATUS EXAMINATION: Patient is a 65-year old female, who is in no acute distress. Speech: Is simplistic but rational. Language skills are fair. Thought processes including: Relevant. Thought content: Denies any paranoid fear or confusion. Abstract reasoning, and computation: , Poor. Description of associations: Relevant and rational. Description of abnormal or psychotic thoughts: None. Judgment: Fair. Insight: fair. . Orientation: , Oriented to time and place and person. Recent and remote memory: , Oriented, fair. Attention span and concentration: , Poor. Language: . Fund of knowledge: Below average. Mood: Euthymic]. Affect: [, Somewhat blunted but appropriate]. DIAGNOSES: 1. . Major depression with psychotic feature 2. . 3. . ASSESSMENT:[Maintaining good control and appears to baseline] MANAGEMENT PLAN: [Needs supportive living]. TIME SPENT: [15] minutes. Vital Signs Vital Signs Date Time Temp Pulse Resp B/P (MAP) Pulse Ox O2 Delivery O2 Flow Rate FiO2 08/01/20 08:35 78 126/74 08/01/20 06:24 97.6 18 98 Room Air Current Medications Current Medications Medications (Trade) Dose Ordered Sig/Dev Route PRN Reason Start Time Stop Time Status Last Admin Dose Admin Acetaminophen (Tylenol Tab) 650 mg Q6HP PRN PO HEADACHE or DISCOMFORT 07/19/20 21:00 08/01/20 08:36 Al Hydrox/Mg Hydrox/Simethicone (Mylanta) 30 ml Q4HP PRN PO HEARTBURN/INDIGESTION 07/19/20 21:00 Benztropine Mesylate (Cogentin) 0.5 mg BID PO 07/19/20 21:00 08/01/20 08:34 Calcium/Vitamin D (Oscal D) 500 mg DAILY PO 07/20/20 09:00 08/01/20 08:34 Donepezil HCl (AriCEPT) 10 mg QHS PO 07/20/20 21:00 07/31/20 20:20 Home Med (Med Rec Complete!) ASDIRECTED XX 07/19/20 20:50 07/19/20 20:49 DC Levothyroxine Sodium (Synthroid) 50 mcg DAILY@0600 PO 07/20/20 06:00 08/01/20 05:58 Lisinopril (Prinivil) 20 mg DAILY PO 07/20/20 09:00 08/01/20 08:34 Lorazepam (Ativan) 1 mg BID PO 07/22/20 21:00 08/01/20 08:35 Magnesium Hydroxide (Milk Of Magnesia) 30 ml DAILYPRN PRN PO CONSTIPATION 07/19/20 21:00 Metoprolol Tartrate (Lopressor) 25 mg BID PO 07/19/20 21:00 08/01/20 08:35 Mirtazapine (Remeron) 7.5 mg QHS PO 07/19/20 21:00 07/31/20 20:19 Multivitamins (Theragram-M) 1 tab DAILY PO 07/20/20 09:00 08/01/20 08:35 Risperidone (RisperDAL) 2 mg QHS PO 07/19/20 21:00 07/31/20 20:20 Trazodone HCl (Desyrel) 50 mg QHSP PRN PO INSOMNIA 07/19/20 21:00 07/30/20 20:16 Venlafaxine HCl (Effexor Xr) 150 mg DAILY PO 07/20/20 09:00 08/01/20 08:35 Allergies Coded Allergies: No Known Allergies (Verified , 01/25/18) STEWART WISE M.D. August 01, 2020 10:51
[2020-08-01 16:14] VITALS: BP 110/59
[2020-08-01] MEDS: risperiDONE 2 MG TAB PO SCH (20:23)
[2020-08-01] MEDS: MIRTAZAPINE 15 MG TAB PO SCH (20:24)
[2020-08-01] MEDS: DONEPEZIL 5 MG TAB PO SCH (20:24)
[2020-08-02] MEDS: LEVOTHYROXINE 50MCG TABLET (0.05MG) PO SCH (06:03)
[2020-08-02 07:03] VITALS: BP 145/64
[2020-08-02] MEDS: BENZTROPINE 0.5 MG TAB PO SCH ×2 (08:24→20:19)
[2020-08-02] MEDS: LORazepam 1 MG TAB PO SCH ×2 (08:24→20:19)
[2020-08-02] MEDS: MULTIVITAMINS/MINERALS THERAP 1 TAB PO SCH (08:24)
[2020-08-02] MEDS: ACETAMINOPHEN TAB 650MG DOSE (2X325MG) PO PRN (08:25)
[2020-08-02] MEDS: VENLAFAXINE **XR** 75MG CAPSULE PO SCH (08:25)
[2020-08-02] MEDS: CALCIUM/VITAMIN D 500 MG TAB PO SCH (08:25)
[2020-08-02] MEDS: METOPROLOL TART 25 MG TABLET PO SCH ×2 (08:25→20:19)
--- NOTE | 2020-08-02 09:24 | MHIPNPDOC ---
[facility] Progress Note Progress Note DATE OF SERVICE: 08/02/20 The patient is maintaining fairly good. Mental status and behavior. She is denying any hallucination or confusion, and is willing to cooperate with the discharge plan of supportive housing. She was interviewed by another agency and is fully cooperate. And is feeling hopeful. She has no new issues and no new complaints and eating, sleeping well. HISTORY: . VITAL SIGNS: See below. NEW TEST RESULTS: . CURRENT MEDICATIONS: See below. MENTAL STATUS EXAMINATION: Patient is a 65-year old female, who is in no acute distress. Speech: Is fair . Language skills are fair. Thought processes including: Relevant, but not productive. Thought content: Denies any hallucination or paranoia. Abstract reasoning, and computation: , Poor. Description of associations: Relevant, but not spontaneous. Description of abnormal or psychotic thoughts: Denies any. Judgment: Fair. Insight: poor. Orientation: , Oriented. Recent and remote memory: , Poor. Attention span and concentration: poor. Language: . Fund of knowledge: , Poor. Mood: , Mildly anxious. Affect: a little perplexed, but more animated. DIAGNOSES: 1. Major depression with psychotic feature. 2. . 3. ]. ASSESSMENT:[Maintaining improved mental status and behavior] MANAGEMENT PLAN: [. Continue with the current medicine and attempt to place in supportive living]. TIME SPENT: 15 minutes. Vital Signs Vital Signs Date Time Temp Pulse Resp B/P (MAP) Pulse Ox O2 Delivery O2 Flow Rate FiO2 08/02/20 08:25 66 08/02/20 08:24 142/64 08/02/20 07:03 97.1 18 97 Room Air Current Medications Current Medications Medications (Trade) Dose Ordered Sig/Dev Route PRN Reason Start Time Stop Time Status Last Admin Dose Admin Acetaminophen (Tylenol Tab) 650 mg Q6HP PRN PO HEADACHE or DISCOMFORT 07/19/20 21:00 08/02/20 08:25 Al Hydrox/Mg Hydrox/Simethicone (Mylanta) 30 ml Q4HP PRN PO HEARTBURN/INDIGESTION 07/19/20 21:00 Benztropine Mesylate (Cogentin) 0.5 mg BID PO 07/19/20 21:00 08/02/20 08:24 Calcium/Vitamin D (Oscal D) 500 mg DAILY PO 07/20/20 09:00 08/02/20 08:25 Donepezil HCl (AriCEPT) 10 mg QHS PO 07/20/20 21:00 08/01/20 20:24 Home Med (Med Rec Complete!) ASDIRECTED XX 07/19/20 20:50 07/19/20 20:49 DC Levothyroxine Sodium (Synthroid) 50 mcg DAILY@0600 PO 07/20/20 06:00 08/02/20 06:03 Lisinopril (Prinivil) 20 mg DAILY PO 07/20/20 09:00 08/02/20 08:24 Lorazepam (Ativan) 1 mg BID PO 07/22/20 21:00 08/02/20 08:24 Magnesium Hydroxide (Milk Of Magnesia) 30 ml DAILYPRN PRN PO CONSTIPATION 07/19/20 21:00 Metoprolol Tartrate (Lopressor) 25 mg BID PO 07/19/20 21:00 08/02/20 08:25 Mirtazapine (Remeron) 7.5 mg QHS PO 07/19/20 21:00 08/01/20 20:24 Multivitamins (Theragram-M) 1 tab DAILY PO 07/20/20 09:00 08/02/20 08:24 Risperidone (RisperDAL) 2 mg QHS PO 07/19/20 21:00 08/01/20 20:23 Trazodone HCl (Desyrel) 50 mg QHSP PRN PO INSOMNIA 07/19/20 21:00 07/30/20 20:16 Venlafaxine HCl (Effexor Xr) 150 mg DAILY PO 07/20/20 09:00 08/02/20 08:25 Allergies Coded Allergies: No Known Allergies (Verified , 01/25/18) STEWART WISE M.D. August 02, 2020 09:24
[2020-08-02 16:26] VITALS: BP 132/71
[2020-08-02] MEDS: PILL CUTTER 1 EACH XX PRN (20:18)
[2020-08-02] MEDS: risperiDONE 2 MG TAB PO SCH (20:19)
[2020-08-02] MEDS: MIRTAZAPINE 15 MG TAB PO SCH (20:19)
[2020-08-02] MEDS: traZODone 50 MG TAB PO PRN (20:19)
[2020-08-02] MEDS: DONEPEZIL 5 MG TAB PO SCH (20:19)
[2020-08-03] MEDS: LEVOTHYROXINE 50MCG TABLET (0.05MG) PO SCH (05:56)
[2020-08-03 06:22] VITALS: BP 148/84
[2020-08-03] MEDS: METOPROLOL TART 25 MG TABLET PO SCH ×2 (08:16→20:20)
[2020-08-03] MEDS: LORazepam 1 MG TAB PO SCH ×2 (08:16→20:20)
[2020-08-03] MEDS: MULTIVITAMINS/MINERALS THERAP 1 TAB PO SCH (08:16)
[2020-08-03] MEDS: BENZTROPINE 0.5 MG TAB PO SCH ×2 (08:16→20:20)
[2020-08-03] MEDS: ACETAMINOPHEN TAB 650MG DOSE (2X325MG) PO PRN (08:16)
[2020-08-03] MEDS: VENLAFAXINE **XR** 75MG CAPSULE PO SCH (08:16)
[2020-08-03] MEDS: CALCIUM/VITAMIN D 500 MG TAB PO SCH (08:17)
[2020-08-03 16:10] VITALS: BP 125/68
[2020-08-03] MEDS: PILL CUTTER 1 EACH XX PRN (20:19)
[2020-08-03] MEDS: risperiDONE 2 MG TAB PO SCH (20:19)
[2020-08-03] MEDS: MIRTAZAPINE 15 MG TAB PO SCH (20:19)
[2020-08-03] MEDS: traZODone 50 MG TAB PO PRN (20:20)
[2020-08-03] MEDS: DONEPEZIL 5 MG TAB PO SCH (20:20)
[2020-08-04] MEDS: LEVOTHYROXINE 50MCG TABLET (0.05MG) PO SCH (06:02)
[2020-08-04 06:29] VITALS: BP 112/82
[2020-08-04] MEDS: MULTIVITAMINS/MINERALS THERAP 1 TAB PO SCH (08:43)
[2020-08-04] MEDS: LORazepam 1 MG TAB PO SCH ×2 (08:43→20:26)
[2020-08-04] MEDS: CALCIUM/VITAMIN D 500 MG TAB PO SCH (08:43)
[2020-08-04] MEDS: METOPROLOL TART 25 MG TABLET PO SCH ×2 (08:44→20:27)
[2020-08-04] MEDS: VENLAFAXINE **XR** 75MG CAPSULE PO SCH (08:44)
[2020-08-04] MEDS: BENZTROPINE 0.5 MG TAB PO SCH ×2 (08:44→20:26)
[2020-08-04] MEDS: ACETAMINOPHEN TAB 650MG DOSE (2X325MG) PO PRN (08:45)
[2020-08-04 16:20] VITALS: BP 107/70
[2020-08-04] MEDS: risperiDONE 2 MG TAB PO SCH (20:26)
[2020-08-04] MEDS: traZODone 50 MG TAB PO PRN (20:26)
[2020-08-04] MEDS: DONEPEZIL 5 MG TAB PO SCH (20:26)
[2020-08-04] MEDS: MIRTAZAPINE 15 MG TAB PO SCH (20:26)
[2020-08-04] MEDS: PILL CUTTER 1 EACH XX PRN (20:26)
[2020-08-05] MEDS: LEVOTHYROXINE 50MCG TABLET (0.05MG) PO SCH (06:04)
[2020-08-05 06:42] VITALS: BP 115/83
[2020-08-05] MEDS: BENZTROPINE 0.5 MG TAB PO SCH ×2 (08:31→20:20)
[2020-08-05] MEDS: CALCIUM/VITAMIN D 500 MG TAB PO SCH (08:31)
[2020-08-05] MEDS: METOPROLOL TART 25 MG TABLET PO SCH ×2 (08:32→20:21)
[2020-08-05] MEDS: LORazepam 1 MG TAB PO SCH ×2 (08:33→20:20)
[2020-08-05] MEDS: VENLAFAXINE **XR** 75MG CAPSULE PO SCH (08:33)
[2020-08-05] MEDS: MULTIVITAMINS/MINERALS THERAP 1 TAB PO SCH (08:33)
[2020-08-05] MEDS: ACETAMINOPHEN TAB 650MG DOSE (2X325MG) PO PRN (08:34)
--- NOTE | 2020-08-05 09:38 | MHIPNPDOC ---
[facility] Progress Note Progress Note DATE OF SERVICE: 08/05/20 The patient has no new complaints. She is fully cooperating with the medications. Eating and sleeping okay and offers no complaint. She is not confused. She is denying any suicidal thoughts and is willing to cooperate with the referral to supportive living. HISTORY: . VITAL SIGNS: See below. NEW TEST RESULTS: . CURRENT MEDICATIONS: See below. MENTAL STATUS EXAMINATION: Patient is a 65-year old female, who is in no acute distress. Speech: Is simplistic but rational. Language skills are , fair. Thought processes including: Relevant. Thought content: , Denies any paranoia. Denies any suicidal thoughts. Abstract reasoning, and computation: For. Description of associations: Relevant. Description of abnormal or psychotic thoughts: Non-. Judgment: , Fair. Insight: fair. . Orientation: , Fairly well oriented. Recent and remote memory: poor. Attention span and concentration: poor. Language: . Fund of knowledge: poor. Mood: , Mildly anxious. Affect: A little blunted but appropriate]. DIAGNOSES: 1. . Major depression. His psychotic feature 2. . 3. . ASSESSMENT:[Maintaining improved the mental status and behavior] MANAGEMENT PLAN: [Waiting for placement in a supportive living]. TIME SPENT: [15] minutes. Vital Signs Vital Signs Date Time Temp Pulse Resp B/P (MAP) Pulse Ox O2 Delivery O2 Flow Rate FiO2 08/05/20 08:32 77 115/83 08/05/20 06:42 98.8 18 95 Room Air Current Medications Current Medications Medications (Trade) Dose Ordered Sig/Dev Route PRN Reason Start Time Stop Time Status Last Admin Dose Admin Acetaminophen (Tylenol Tab) 650 mg Q6HP PRN PO HEADACHE or DISCOMFORT 07/19/20 21:00 08/05/20 08:34 Al Hydrox/Mg Hydrox/Simethicone (Mylanta) 30 ml Q4HP PRN PO HEARTBURN/INDIGESTION 07/19/20 21:00 Benztropine Mesylate (Cogentin) 0.5 mg BID PO 07/19/20 21:00 08/05/20 08:31 Calcium/Vitamin D (Oscal D) 500 mg DAILY PO 07/20/20 09:00 08/05/20 08:31 Donepezil HCl (AriCEPT) 10 mg QHS PO 07/20/20 21:00 08/04/20 20:26 Home Med (Med Rec Complete!) ASDIRECTED XX 07/19/20 20:50 07/19/20 20:49 DC Levothyroxine Sodium (Synthroid) 50 mcg DAILY@0600 PO 07/20/20 06:00 08/05/20 06:04 Lisinopril (Prinivil) 20 mg DAILY PO 07/20/20 09:00 08/05/20 08:31 Lorazepam (Ativan) 1 mg BID PO 07/22/20 21:00 08/05/20 08:33 Magnesium Hydroxide (Milk Of Magnesia) 30 ml DAILYPRN PRN PO CONSTIPATION 07/19/20 21:00 Metoprolol Tartrate (Lopressor) 25 mg BID PO 07/19/20 21:00 08/05/20 08:32 Mirtazapine (Remeron) 7.5 mg QHS PO 07/19/20 21:00 08/04/20 20:26 Multivitamins (Theragram-M) 1 tab DAILY PO 07/20/20 09:00 08/05/20 08:33 Risperidone (RisperDAL) 2 mg QHS PO 07/19/20 21:00 08/04/20 20:26 Trazodone HCl (Desyrel) 50 mg QHSP PRN PO INSOMNIA 07/19/20 21:00 08/04/20 20:26 Venlafaxine HCl (Effexor Xr) 150 mg DAILY PO 07/20/20 09:00 08/05/20 08:33 Allergies Coded Allergies: No Known Allergies (Verified , 01/25/18) STEWART WISE M.D. August 05, 2020 09:37
[2020-08-05 19:18] VITALS: BP 130/62
[2020-08-05] MEDS: DONEPEZIL 5 MG TAB PO SCH (20:20)
[2020-08-05] MEDS: risperiDONE 2 MG TAB PO SCH (20:20)
[2020-08-05] MEDS: MIRTAZAPINE 15 MG TAB PO SCH (20:20)
[2020-08-06] MEDS: LEVOTHYROXINE 50MCG TABLET (0.05MG) PO SCH (05:40)
[2020-08-06 06:17] VITALS: BP 147/82
[2020-08-06] MEDS: CALCIUM/VITAMIN D 500 MG TAB PO SCH (08:20)
[2020-08-06] MEDS: BENZTROPINE 0.5 MG TAB PO SCH ×2 (08:20→20:21)
[2020-08-06] MEDS: METOPROLOL TART 25 MG TABLET PO SCH ×2 (08:21→20:23)
[2020-08-06] MEDS: MULTIVITAMINS/MINERALS THERAP 1 TAB PO SCH (08:21)
[2020-08-06] MEDS: VENLAFAXINE **XR** 75MG CAPSULE PO SCH (08:22)
[2020-08-06] MEDS: LORazepam 1 MG TAB PO SCH ×2 (08:22→20:21)
[2020-08-06] MEDS: ACETAMINOPHEN TAB 650MG DOSE (2X325MG) PO PRN (08:23)
--- NOTE | 2020-08-06 10:40 | MHIPNPDOC ---
[facility] Progress Note Progress Note DATE OF SERVICE: 08/06/20 The patient is cooperating with the treatment and has no new complaints and maintaining fairly good control. She is not confused and she is quite capable of basic ADLs, and appears to be at her baseline. Patient was denied by transitional living and is waiting for assisted living, but currently none is available. HISTORY: . VITAL SIGNS: See below. NEW TEST RESULTS: . CURRENT MEDICATIONS: See below. MENTAL STATUS EXAMINATION: Patient is a 65-year old female, who is in no acute distress . Speech: Is simplistic but relevant. Language skills are fair. Thought processes including: , Relevant, coherent. Thought content: . No psychotic symptoms and no suicidal. Abstract reasoning, and computation: , Poor. Description of associations: Relevant . Description of abnormal or psychotic thoughts: [. No gross psychotic symptoms]. Judgment: [, Poor]. Insight: [ poor]. Orientation: [, Oriented]. Recent and remote memory: [Fair]. Attention span and concentration: [poor]. Language: . Fund of knowledge: [poor]. Mood: [Only mildly anxious]. Affect: [, Appropriate]. DIAGNOSES: 1. . Major depression 2. . 3. . ASSESSMENT:[The patient's cooperating with treatment and appears to be showing some improvement] MANAGEMENT PLAN: [Needs assisted living]. TIME SPENT: [15] minutes. Vital Signs Vital Signs Date Time Temp Pulse Resp B/P (MAP) Pulse Ox O2 Delivery O2 Flow Rate FiO2 08/06/20 08:21 68 147/82 08/06/20 06:17 97.6 18 96 Room Air Current Medications Current Medications Medications (Trade) Dose Ordered Sig/Dev Route PRN Reason Start Time Stop Time Status Last Admin Dose Admin Acetaminophen (Tylenol Tab) 650 mg Q6HP PRN PO HEADACHE or DISCOMFORT 07/19/20 21:00 08/06/20 08:23 Al Hydrox/Mg Hydrox/Simethicone (Mylanta) 30 ml Q4HP PRN PO HEARTBURN/INDIGESTION 07/19/20 21:00 Benztropine Mesylate (Cogentin) 0.5 mg BID PO 07/19/20 21:00 08/06/20 08:20 Calcium/Vitamin D (Oscal D) 500 mg DAILY PO 07/20/20 09:00 08/06/20 08:20 Donepezil HCl (AriCEPT) 10 mg QHS PO 07/20/20 21:00 08/05/20 20:20 Home Med (Med Rec Complete!) ASDIRECTED XX 07/19/20 20:50 07/19/20 20:49 DC Levothyroxine Sodium (Synthroid) 50 mcg DAILY@0600 PO 07/20/20 06:00 08/06/20 05:40 Lisinopril (Prinivil) 20 mg DAILY PO 07/20/20 09:00 08/06/20 08:20 Lorazepam (Ativan) 1 mg BID PO 07/22/20 21:00 08/06/20 08:22 Magnesium Hydroxide (Milk Of Magnesia) 30 ml DAILYPRN PRN PO CONSTIPATION 07/19/20 21:00 Metoprolol Tartrate (Lopressor) 25 mg BID PO 07/19/20 21:00 08/06/20 08:21 Mirtazapine (Remeron) 7.5 mg QHS PO 07/19/20 21:00 08/05/20 20:20 Multivitamins (Theragram-M) 1 tab DAILY PO 07/20/20 09:00 08/06/20 08:21 Risperidone (RisperDAL) 2 mg QHS PO 07/19/20 21:00 08/05/20 20:20 Trazodone HCl (Desyrel) 50 mg QHSP PRN PO INSOMNIA 07/19/20 21:00 08/04/20 20:26 Venlafaxine HCl (Effexor Xr) 150 mg DAILY PO 07/20/20 09:00 08/06/20 08:22 Allergies Coded Allergies: No Known Allergies (Verified , 01/25/18) STEWART WISE M.D. Aug 06, 2020 10:40
[2020-08-06 18:07] VITALS: BP 128/28
[2020-08-06] MEDS: MIRTAZAPINE 15 MG TAB PO SCH (20:21)
[2020-08-06] MEDS: DONEPEZIL 5 MG TAB PO SCH (20:21)
[2020-08-06] MEDS: risperiDONE 2 MG TAB PO SCH (20:21)
[2020-08-07] MEDS: LEVOTHYROXINE 50MCG TABLET (0.05MG) PO SCH (05:44)
[2020-08-07 06:00] VITALS: BP 138/92
[2020-08-07] MEDS: BENZTROPINE 0.5 MG TAB PO SCH ×2 (08:22→20:52)
[2020-08-07] MEDS: LORazepam 1 MG TAB PO SCH ×2 (08:22→20:50)
[2020-08-07] MEDS: METOPROLOL TART 25 MG TABLET PO SCH ×2 (08:23→20:52)
[2020-08-07] MEDS: CALCIUM/VITAMIN D 500 MG TAB PO SCH (08:23)
[2020-08-07] MEDS: ACETAMINOPHEN TAB 650MG DOSE (2X325MG) PO PRN ×2 (08:24→09:46)
[2020-08-07] MEDS: VENLAFAXINE **XR** 75MG CAPSULE PO SCH (08:24)
[2020-08-07] MEDS: MULTIVITAMINS/MINERALS THERAP 1 TAB PO SCH (08:24)
--- NOTE | 2020-08-07 09:27 | MHIPNPDOC ---
[facility] Progress Note Progress Note DATE OF SERVICE: 08/07/20 The patient is very alert and quite verbal and productive. She states that she understands that she is denied by transitional living and there is a long waiting list for assisted living and is asking if she can go home. It is explained that due to her repeated failure to live alone it'll be much preferable that she has someone to live with, such as a sister and patient is willing to explore the possibility. HISTORY: . VITAL SIGNS: See below. NEW TEST RESULTS: . CURRENT MEDICATIONS: See below. MENTAL STATUS EXAMINATION: Patient is a 65-year old female, who is , cooperative and in good control. Speech: Is more productive. Language skills are fair. Thought processes including: Organized, relevant. Thought content: Denies any hallucination. Denies any suicidal thoughts. Abstract reasoning, and computation: , Fair. Description of associations: Much more relevant and organized. Description of abnormal or psychotic thoughts: None. Judgment: Fair. Insight: fair.. Orientation: , Oriented. Recent and remote memory: Fair. Attention span and concentration: Fair. Language: . Fund of knowledge: [poor. Mood: Euthymic. Affect: [, Appropriate]. DIAGNOSES: 1. . Major depression 2. . 3. . ASSESSMENT:[Maintaining improved mental status] MANAGEMENT PLAN: The patient is definitely showing improved cognition and has good ADLs. But I highly doubt whether she can maintain an independent living by herself. We will try to contact her family to see if she can stay with one of the sisters . TIME SPENT: [20] minutes. Vital Signs Vital Signs Date Time Temp Pulse Resp B/P (MAP) Pulse Ox O2 Delivery O2 Flow Rate FiO2 08/07/20 08:23 92 162/98 08/07/20 06:00 97.5 20 97 Room Air Current Medications Current Medications Medications (Trade) Dose Ordered Sig/Dev Route PRN Reason Start Time Stop Time Status Last Admin Dose Admin Acetaminophen (Tylenol Tab) 650 mg Q6HP PRN PO HEADACHE or DISCOMFORT 07/19/20 21:00 08/07/20 08:24 Al Hydrox/Mg Hydrox/Simethicone (Mylanta) 30 ml Q4HP PRN PO HEARTBURN/INDIGESTION 07/19/20 21:00 Benztropine Mesylate (Cogentin) 0.5 mg BID PO 07/19/20 21:00 08/07/20 08:22 Calcium/Vitamin D (Oscal D) 500 mg DAILY PO 07/20/20 09:00 08/07/20 08:23 Donepezil HCl (AriCEPT) 10 mg QHS PO 07/20/20 21:00 08/06/20 20:21 Home Med (Med Rec Complete!) ASDIRECTED XX 07/19/20 20:50 07/19/20 20:49 DC Levothyroxine Sodium (Synthroid) 50 mcg DAILY@0600 PO 07/20/20 06:00 08/07/20 05:44 Lisinopril (Prinivil) 20 mg DAILY PO 07/20/20 09:00 08/07/20 08:22 Lorazepam (Ativan) 1 mg BID PO 07/22/20 21:00 08/07/20 08:22 Magnesium Hydroxide (Milk Of Magnesia) 30 ml DAILYPRN PRN PO CONSTIPATION 07/19/20 21:00 Metoprolol Tartrate (Lopressor) 25 mg BID PO 07/19/20 21:00 08/07/20 08:23 Mirtazapine (Remeron) 7.5 mg QHS PO 07/19/20 21:00 08/06/20 20:21 Multivitamins (Theragram-M) 1 tab DAILY PO 07/20/20 09:00 08/07/20 08:24 Risperidone (RisperDAL) 2 mg QHS PO 07/19/20 21:00 08/06/20 20:21 Trazodone HCl (Desyrel) 50 mg QHSP PRN PO INSOMNIA 07/19/20 21:00 08/04/20 20:26 Venlafaxine HCl (Effexor Xr) 150 mg DAILY PO 07/20/20 09:00 08/07/20 08:24 Allergies Coded Allergies: No Known Allergies (Verified , 01/25/18) STEWART WISE M.D. Aug 07, 2020 09:27
[2020-08-07 17:03] VITALS: BP 115/97
[2020-08-07] MEDS: MIRTAZAPINE 15 MG TAB PO SCH (20:50)
[2020-08-07] MEDS: DONEPEZIL 5 MG TAB PO SCH (20:52)
[2020-08-07] MEDS: risperiDONE 2 MG TAB PO SCH (20:52)
[2020-08-08] MEDS: LEVOTHYROXINE 50MCG TABLET (0.05MG) PO SCH (06:26)
[2020-08-08 07:14] VITALS: BP 101/58
[2020-08-08] MEDS: BENZTROPINE 0.5 MG TAB PO SCH ×2 (08:24→20:18)
[2020-08-08] MEDS: MULTIVITAMINS/MINERALS THERAP 1 TAB PO SCH (08:24)
[2020-08-08] MEDS: CALCIUM/VITAMIN D 500 MG TAB PO SCH (08:24)
[2020-08-08] MEDS: LORazepam 1 MG TAB PO SCH ×2 (08:25→20:19)
[2020-08-08] MEDS: VENLAFAXINE **XR** 75MG CAPSULE PO SCH (08:25)
[2020-08-08] MEDS: ACETAMINOPHEN TAB 650MG DOSE (2X325MG) PO PRN (08:25)
[2020-08-08] MEDS: METOPROLOL TART 25 MG TABLET PO SCH ×2 (08:25→20:18)
--- NOTE | 2020-08-08 11:08 | MHIPNPDOC ---
[facility] Progress Note Progress Note DATE OF SERVICE: 08/08/20 The patient is maintaining her improved mental status and behavior. She is alert, oriented and quite pleasant and has no new complaints and is asking for discharge back to her apartment. She appears very stable at her baseline mental status and is showing full capacity to do her ADLs, although her past history shows that she becomes very dependent and inadequate when she is left alone and patient was willing to accept assisted living, but none is available at this time. HISTORY: . VITAL SIGNS: See below. NEW TEST RESULTS: . CURRENT MEDICATIONS: See below. MENTAL STATUS EXAMINATION: Patient is a 65-year old female, who is in no acute distress. Speech: Is clear, rational. Language skills are , fair. Thought processes including: , Relevant, coherent. Thought content: , No psychotic symptoms. Abstract reasoning, and computation: Fair. Description of associations: Relevant. Description of abnormal or psychotic thoughts: None. Judgment: , Fair. Insight: [ fair.. Orientation: , Oriented. Recent and remote memory: Fair. Attention span and concentration: , Poor. Language: . Fund of knowledge: Below average. Mood: Euthymic. Affect: , Appropriate. DIAGNOSES: 1. . Major depression, recurrent, with psychotic feature 2. . 3. . ASSESSMENT: Showing improvement MANAGEMENT PLAN: Arrange for discharge tomorrow with the person or a disservice and outpatient follow-up. TIME SPENT: 20 minutes. Vital Signs Vital Signs Date Time Temp Pulse Resp B/P (MAP) Pulse Ox O2 Delivery O2 Flow Rate FiO2 08/08/20 08:25 137/80 08/08/20 08:25 101 08/08/20 07:14 97.9 18 97 Room Air Current Medications Current Medications Medications (Trade) Dose Ordered Sig/Dev Route PRN Reason Start Time Stop Time Status Last Admin Dose Admin Acetaminophen (Tylenol Tab) 650 mg Q6HP PRN PO HEADACHE or DISCOMFORT 07/19/20 21:00 08/08/20 08:25 Al Hydrox/Mg Hydrox/Simethicone (Mylanta) 30 ml Q4HP PRN PO HEARTBURN/INDIGESTION 07/19/20 21:00 Benztropine Mesylate (Cogentin) 0.5 mg BID PO 07/19/20 21:00 08/08/20 08:24 Calcium/Vitamin D (Oscal D) 500 mg DAILY PO 07/20/20 09:00 08/08/20 08:24 Donepezil HCl (AriCEPT) 10 mg QHS PO 07/20/20 21:00 08/07/20 20:52 Home Med (Med Rec Complete!) ASDIRECTED XX 07/19/20 20:50 07/19/20 20:49 DC Levothyroxine Sodium (Synthroid) 50 mcg DAILY@0600 PO 07/20/20 06:00 08/08/20 06:26 Lisinopril (Prinivil) 20 mg DAILY PO 07/20/20 09:00 08/08/20 08:25 Lorazepam (Ativan) 1 mg BID PO 07/22/20 21:00 08/08/20 08:25 Magnesium Hydroxide (Milk Of Magnesia) 30 ml DAILYPRN PRN PO CONSTIPATION 07/19/20 21:00 Metoprolol Tartrate (Lopressor) 25 mg BID PO 07/19/20 21:00 08/08/20 08:25 Mirtazapine (Remeron) 7.5 mg QHS PO 07/19/20 21:00 08/07/20 20:50 Miscellaneous (Unresolved Clarification Entry) SEE LABEL COMMENTS DAILY XX 08/08/20 09:00 Multivitamins (Theragram-M) 1 tab DAILY PO 07/20/20 09:00 08/08/20 08:24 Risperidone (RisperDAL) 2 mg QHS PO 07/19/20 21:00 08/07/20 20:52 Trazodone HCl (Desyrel) 50 mg QHSP PRN PO INSOMNIA 07/19/20 21:00 08/04/20 20:26 Venlafaxine HCl (Effexor Xr) 150 mg DAILY PO 07/20/20 09:00 08/08/20 08:25 Allergies Coded Allergies: No Known Allergies (Verified , 01/25/18) STEWART WISE M.D. Aug 08, 2020 11:08
[2020-08-08 16:10] VITALS: BP 125/75
[2020-08-08] MEDS: risperiDONE 2 MG TAB PO SCH (20:18)
[2020-08-08] MEDS: DONEPEZIL 5 MG TAB PO SCH (20:18)
[2020-08-08] MEDS: MIRTAZAPINE 15 MG TAB PO SCH (20:18)
[2020-08-08] MEDS: PILL CUTTER 1 EACH XX PRN (20:18)
[2020-08-09] MEDS: LEVOTHYROXINE 50MCG TABLET (0.05MG) PO SCH (05:51)
[2020-08-09 06:35] VITALS: BP 128/70
[2020-08-09] MEDS: CALCIUM/VITAMIN D 500 MG TAB PO SCH (08:21)
[2020-08-09 08:22] VITALS: BP 128/70
[2020-08-09] MEDS: METOPROLOL TART 25 MG TABLET PO SCH (08:22)
[2020-08-09] MEDS: BENZTROPINE 0.5 MG TAB PO SCH (08:22)
[2020-08-09] MEDS: LORazepam 1 MG TAB PO SCH (08:23)
[2020-08-09] MEDS: MULTIVITAMINS/MINERALS THERAP 1 TAB PO SCH (08:23)
[2020-08-09] MEDS: VENLAFAXINE **XR** 75MG CAPSULE PO SCH (08:23)
[2020-08-09] MEDS: ACETAMINOPHEN TAB 650MG DOSE (2X325MG) PO PRN (08:24)
[2020-08-09] MEDS ORDERED: ATIV1TAB7 PO (09:50)
--- NOTE | 2020-08-09 11:02 | MHDSPDOC ---
[facility] Discharge Summary Discharge Summary DATE OF ADMISSION: July 19, 2020 at 20:59 DATE OF DISCHARGE: 08/09/2020 DISCHARGE DIAGNOSES: 1. . Major depression, recurrent 2. . Personality disorder, mixed REASON FOR ADMISSION: The patient came back to the emergency room 2 days after her discharge and grossly regressed, withdrawn and somewhat confused mental status. She didn't follow the recommended the discharge plan of staying with her sister and went back to all in apartment and immediately became very regressed and was found in her past stop by her sister and markedly withdrawn state. On admission, exam patient is denying any hallucination or paranoia and denies any suicidal thoughts, but is very childish regressed and withdrawn. CONSULTANTS INVOLVED: None TREATMENT AND PROGRESS ON THE UNIT : Patient was seen for daily supportive therapy restarted on her psychotropic medications, which includes risperidone and Effexor. Initially, she remained quiet, very seclusive and at times extremely preoccupied. She appeared more anxious and almost frozen in her anxiety and was given Ativan 1 mg twice a day with a marked improvement in in her mental status and she is becoming much more spontaneous and animated. She is assuring improved ADL skills, showing increased her socialization and his affect is much more spontaneous and animated. She is fully understanding the need for assisted living was referred and had several interviews done. She was denied by transitional living, but is willing to go to assisted living, but none is available at this time. Understanding this. She is now requesting discharge back to her apartment and wait for any openings. She would have a daily health ambulatory care nurse and has case management services and have her sister, who can also be a support.. HOSPITAL COURSE: With her regular medications and Ativan. She is has shown much improvement and appears stable at her baseline. We will discharge her with continued Ativan prescription given weekly with a 3 week period and follow up with the outpatient clinic DISCHARGE ASSESSMENT: Improved, stable and in no acute distress. MENTAL STATUS EXAMINATION ON DISCHARGE: Patient is a 65-year old female, who is , pleasant and cooperative. Speech is relevant and coherent. Language skills are good. Thought processes including: , Organized. Thought content: More paranoid symptoms. Abstract reasoning, and computation: Fair. Description of associations: , Organized. Description of abnormal or psychotic thoughts: Non-. Judgment: fair. Insight: Fair. Orientation to , oriented. Recent and remote memory: Fair. Attention span and concentration: Fair. Language: . Fund of knowledge: . Mood: Euthymic. Affect: Bright and animated. MEDICATIONS ON DISCHARGE: - for . Resume all her medications - for ., Ativan 1 mg twice a day, weekly prescription sent to the pharmacy to last for 4 weeks - for . PLAN/FOLLOWUP ARRANGEMENTS: [Arranged by the senior media planner]. The amount of time spent in the coordination of care for this patient was approximately [40] minutes. ETOH/Disorder Med Rx ETOH/DRUG DISORDER RX: N/A Vital Signs/I&Os Vital Signs Date Time Temp Pulse Resp B/P (MAP) Pulse Ox O2 Delivery O2 Flow Rate FiO2 08/09/20 08:22 83 128/70 08/09/20 06:35 97.8 18 100 Room Air Medications Scheduled Benztropine Mesylate (Benztropine Mesylate) 0.5 Mg Tablet, 0.5 MG PO BID, (Reported) Calcium Carbonate/Vitamin D3 (Calcium 500-Vit D3 200 Tablet) 1 Each Tablet, 1 TAB PO DAILY, (Reported) Diclofenac Sodium (Diclofenac Sodium) 50 Mg Tablet.dr, 50 MG PO BID for pain, (Reported) Donepezil HCl (Donepezil HCl) 10 Mg Tablet, 10 MG PO QHS, (Reported) Levothyroxine Sodium (Synthroid) 50 Mcg Tablet, 50 MCG PO DAILY, (Reported) Lisinopril (Lisinopril) 20 Mg Tablet, 20 MG PO DAILY for blood pressure, (Reported) Lorazepam (Ativan) 1 Mg Tablet, 1 MG PO BID for anxiety for 7 Days, #14 Metoprolol Tartrate (Metoprolol Tartrate) 25 Mg Tablet, 25 MG PO BID, (Reported) Mirtazapine (Remeron) 15 Mg Tablet, 7.5 MG PO QHS for ., (Reported) Multivitamins (Thera M Plus Tablet) 1 Each Tablet, 1 TAB PO DAILY, (Reported) Paliperidone Palmitate (Invega Trinza) 819 Mg/2.625 Ml Syringe, 819 MG IM Q3M, (Reported) Risperidone (Risperidone) 2 Mg Tablet, 2 MG PO DAILY for sleep, (Reported) Risperidone (Risperidone) 1 Mg Tablet, 1 MG PO QAM for ,, (Reported) Venlafaxine HCl (Venlafaxine HCl ER) 75 Mg Cap.er.24h, 150 MG PO DAILY, (Reported) Allergies Coded Allergies: No Known Allergies (Verified , 01/25/18) STEWART WISE M.D. Aug 09, 2020 11:02
== END 2020-08-09 12:07 | disposition home or self-care (01) | DRG 885 ==
LOC: M ED 15:06 → M ED INP 20:59 → M PSY 22:02
PROVIDERS: ADMIT Psychiatry & Neurology Psychiatry; ATTEND Psychiatry & Neurology Psychiatry
DX: F33.2 Major depressive disorder, recurrent severe without psychotic features (principal); E22.2 Syndrome of inappropriate secretion of antidiuretic hormone; F60.89 Other specific personality disorders; E03.9 Hypothyroidism, unspecified; I11.9 Hypertensive heart disease without heart failure; J45.909 Unspecified asthma, uncomplicated; M81.0 Age-related osteoporosis without current pathological fracture; M51.36 Other intervertebral disc degeneration, lumbar region

== ENCOUNTER → 2020-08-14 | Outpatient (REF) | payer OTHER, MEDICAID ==
[~2020-08-14] MED LIST changes: +ATIV1TAB7 PO; +DICL50TAB PO
[2020-08-14 16:05] LABS: FOLATE 23.9 NG/ML
== END ==
LOC: M SFHCPLAZ 13:49
PROVIDERS: ATTEND Physician Assistant
DX: R20.2 Paresthesia of skin (principal); F25.0 Schizoaffective disorder, bipolar type; F41.8 Other specified anxiety disorders

== ENCOUNTER → 2020-09-03 | Outpatient (CLI) | payer OTHER, MEDICAID ==
--- NOTE | 2020-09-05 00:29 | ECWPNPC ---
PATIENT NAME: LUZMARIA FUNES : 1955 GENDER: FEMALE VISIT DATE: 09/03/2020 DISCHARGE DATE: 09/03/20 1005 VISIT LOCKED DATE TIME: PHYSICIAN: GABRIELLA YUAN PHYSICIAN PAGER NO: ACTIVE RESOURCE: GABRIELLA YUAN REASON FOR APPOINTMENT 1. MEDICATION MANAGEMENT/LOW BACK PAIN/POOR HISTORIAN/DEMENTIA HISTORY OF PRESENT ILLNESS GENERAL: HERE FOR FOLLOW-UP OF CHRONIC LOW BACK PAIN. OVERALL DOING WELL WITH CURRENT CHRONIC PAIN MEDICATION ARTHROTEC 50 MG AND TIZANIDINE 2 MG. PATIENT IS A POOR HISTORIAN. HISTORY OF DEMENTIA. DOES REPORT THAT PAIN IS DOING OKAY WITH CURRENT MEDICATIONS. DENIES ADVERSE SIDE EFFECTS. - -. FALL RISK SCREENING: SCREENING DON'T REMEBER IF SHE HAS FALLING THIS YEAR, OTHER PEOPLE HAVE TOLD HER SHE HAS FALLING MULTPY TIMES.. PAIN SCREENING: PATIENT HAS A COMPLAINT OF ACUTE OR CHRONIC PAIN :YES LOCATION OF PAIN:RIGHT SHOULDER, LOW BACK INTENSITY OF PAIN (SCALE OF 1 TO 10):3 WHAT DOES YOUR PAIN FEEL LIKE:CONTINOUS, SORE DURATION:CONTINOUS, CONSTANT, ALL DAY PAIN IS INCREASED BY:ACTIVITIES PAIN IS DECREASED BY:USE OF PAIN MEDICATIONS NURSING NOTE: -. PAIN CENTER INTAKE QUESTIONS: DO YOU HAVE A HISTORY OF MRSA? :NO DO YOU TAKE A BLOOD THINNERS? :NO DO YOU HAVE ANY BLEEDING DISORDERS? :NO ANY NEW NUMBNESS OR WEAKNESS IN YOUR LEGS OR ARMS? :NO ANY PACEMAKER,DEFIBRILLATOR, OR DORSAL COLUMN STIMULATOR? :NO DO YOU HAVE ANY RASHES OR OPEN SORES? :NO ARE YOU ALLERGIC TO IV DYE? :NO ARE YOU DIABETIC? :NO BORDERLINE ANY NEW PROBLEMS WITH YOUR MEDICATIONS? :NO HAVE YOU RECEIVED A VACCINE IN THE PAST 30 DAYS? :NO MODERNA 1ST 05/25/20 2ND: 06/18/20 DO YOU PLAN TO RECEIVE A VACCINE IN THE NEXT 21 DAYS? :NO DO YOU NEED ANY PRESCRIPTION? :NO DO YOU TAKE ANY IMMUNOSUPPRESSIVE MEDICATIONS? :NO IS THERE A CHANCE YOU COULD BE ? :NO ARE YOU BREAST FEEDING? :NO CURRENT MEDICATIONS TAKING EFFEXOR XR 150 MG CAPSULE EXTENDED RELEASE 24 HOUR 225MG-1 CAPSULE WITH FOOD ORALLY ONCE A DAY TAKING RISPERIDONE 1 MG TABLET 1 TABLET ORALLY 1MG AM 2MG HS TAKING DONEPEZIL HCL 10 MG TABLET 1 TABLET AT BEDTIME ORALLY ONCE A DAY TAKING BENZTROPINE MESYLATE 0.5 MG TABLET TAKE ONE TABLET BY MOUTH @8AM AND TAKE ONE TABLET @8PM ORAL TAKING CALCIUM 500 MG TABLET 1 TABLET WITH MEALS ORALLY DAILY TAKING RISPERIDONE 2 MG TABLET 1 TABLET ORALLY ONCE A DAY TAKING CLONAZEPAM 1 MG TABLET (SCHEDULE IV DRUG) TAKE ONE TABLET BY MOUTH TWICE DAILY AND EVERY FOUR HOURS NEEDED FOR ANXIETY MAX DAILY DOSE THREE TABLETS ORAL TAKING TRAZODONE HCL 50 MG TABLET 1/2 (25MG) TABLET AT BEDTIME NEEDED ORALLY ONCE A DAY HS TAKING VITAMIN D3 50 MCG (2000 UT) CAPSULE TAKE ONE CAPSULE BY MOUTH @8AM TAKING TIZANIDINE HCL 2 MG TABLET TAKE ONE TABLET BY MOUTH @12PM AND TAKE ONE TABLET @8PM TAKING LEVOTHYROXINE SODIUM 50 MCG TABLET TAKE ONE TABLET BY MOUTH EVERY MORNING *BOTTLE* TAKING OYSTER SHELL CALCIUM 500 MG TABLET TAKE ONE TABLET BY MOUTH @8AM TAKING LISINOPRIL 20 MG TABLET 1 TABLET ORALLY ONCE A DAY TAKING DICLOFENAC SODIUM 50 MG TABLET DELAYED RELEASE 1 TABLET ORALLY TWICE A DAY TAKING METOPROLOL TARTRATE 25 MG TABLET TAKE ONE TABLET BY MOUTH @8AM AND TAKE ONE TABLET @8PM ORAL TAKING MULTIVITAMIN ADULTS - TABLET DIRECTED ORALLY TAKING PALIPERIDONE PALMITATE 234 MG/1.5ML SUSPENSION 1.5 ML INTRAMUSCULAR , NOTES: PER PT [id number] TAKING MIRTAZAPINE 15 MG TABLET TAKE 1/2 TABLET BY MOUTH AT BEDTIME ORAL DAILY TAKING BATH/SHOWER SEAT - MISCELLANEOUS DIRECTED DX: M46.90, M51.36, M43.17 _ TAKING HAND HELD SHOWER SPRAY - MISCELLANEOUS DIRECTED DX: M46.90, M51.36, M43.17 _ TAKING WALL GRAB BAR - MISCELLANEOUS DIRECTED DX: M46.90, M51.36, M43.17 _ NOT-TAKING RAMELTEON 8 MG TABLET 1 TABLET AT BEDTIME NEEDED ORALLY ONCE A DAY NOT-TAKING KLONOPIN 1 MG TABLET 1 TABLET ORALLY BID NOT-TAKING BIOFREEZE ROLL-ON 4 % GEL 1 APPLICATION TO AFFECTED AREA NEEDED EXTERNALLY ONCE A DAY NOT-TAKING MULTIVITAMIN ADULTS - TABLET ORALLY DAILY NOT-TAKING LACTULOSE 10 GM/15ML SOLUTION TAKE 15 MILLILITERS BY MOUTH TWO TO THREE TIMES DAILY FOR CONSTIPATION ORAL NOT-TAKING COGENTIN 0.5 MG 1 TAB(S) 2 TIMES A DAY NOT-TAKING ROZEREM 8 MG 1 TABLET AT BEDTIME NEEDED NOT-TAKING INVEGA TRINZA 819 MG/2.625ML SUSPENSION PREFILLED SYRINGE INJECT ONE SYRINGE INTRAMUSCULARLY FOR A SINGLE DOSE INTRAMUSCULAR NOT-TAKING BENEFIBER - POWDER ORALLY NOT-TAKING STOOL SOFTENER 100 MG CAPSULE 1 CAPSULE NEEDED ORALLY ONCE A DAY NOT-TAKING VITAMIN D 2000 UNIT CAPSULE 1 CAPSULE ORALLY ONCE A DAY NOT-TAKING VENLAFAXINE HCL ER 150 MG CAPSULE EXTENDED RELEASE 24 HOUR TAKE TWO CAPSULES BY MOUTH @8AM ORAL , NOTES: DUPLICATE NOT-TAKING RISPERIDONE 1 MG TABLET TAKE ONE TABLET BY MOUTH @8AM ORAL , NOTES: DUPLICATE NOT-TAKING DONEPEZIL HCL 10 MG TABLET TAKE ONE TABLET BY MOUTH @8PM ORAL , NOTES: DUPLICATE NOT-TAKING ROZEREM 8 MG TABLET TAKE ONE TABLET BY MOUTH @8PM ORAL , NOTES: DUPLICATE MEDICATION LIST REVIEWED AND RECONCILED WITH THE PATIENT PAST MEDICAL HISTORY HYPOTHYROIDISM MYOPIC ASTIGMATISM CALCANEAL SPURS ASTHMA, MILD INTERMITTENT IFG OSTEOPENIA, DEXA 01/18, T SCORE -2, AT SPINE, OSTEOPOROSIS ON DEXA 2014 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 RALOXIFENE COMPLETED SCHIZOAFFECTIVE D/O WITH BIPOLAR FEATURES 11/15 EKG NEG PN 11/18 MORBID OBESITY MEMORY IMPAIRMENT, NEG WORK UP 06/18. XR LS SPINE 04/21 MILD SCOLIOSISCONVEX L/ BILATERAL L5 SPONDYLOLYSIS WITH GRADE 2 SPODYLOLITHESIS/ADV L5-S1 DDD/MOD T12-L1 DDD JOSEPH 09/18 FEV1 2.19 MRI LSPINE 12/19 - DIFFUSE DISC BULGE AT L4-5, L5-S1 WITH MIN THECAL SAC COMPRESSION, GRADE 2 SPONDYLOLITHESIS OF L5 ON S1 WITH ASSOC L5 PARS DEFECT, THERE IS COMPRESSION OF THE L5 NERVES IN THE NEURAL FORAMINA. SIADH: SECONDARY TO MEDICATIONS AND EXCESSIVE WATER INTAKE COLONOSCOPY 26/06/2017: NORMAL, NO SPECIMENS COLLECTED NEUROCOGNITIVE IMPAIRMENT COMMINUTED ACROMIUM FRACTURE R SHOULDER-11/2019 DEMENTIA ALLERGIES N.K.D.A. SURGICAL HISTORY L BREAST BX 11/04/09 L BREAST LUMPECTOMY--DCIS 11/27/09 COLONOSCOPY: POLYPS WITHOUT ADENOMATOUS OR HYPERPLASTIC FEATURES; REPEAT 10 YEARS 2012 FAMILY HISTORY FATHER: 99 YRS, DEMENTIA, DIAGNOSED WITH HYPERTENSION MOTHER: 88 YRS SIBLINGS: ALIVE, SISTER FEMALE CANCER UNKNOWN PATERNAL GRAND FATHER: PATERNAL GRAND MOTHER: MATERNAL GRAND FATHER: MATERNAL GRAND MOTHER: 1 BROTHER(S) , 3 SISTER(S) - HEALTHY. SOCIAL HISTORY GENERAL: TOBACCO USE ARE YOU A:NONSMOKER NEVER SMOKER LATEX QUESTIONNAIRE LATEX ALLERGY : HAVE YOU EVER DEVELOPED ANY TYPE OF REACTION AFTER HANDLING LATEX PRODUCTS SUCH RUBBER GLOVES, CONDOMS, DIAPHRAGMS, BALLOONS, SOCKS, OR UNDERWEAR?NO LATEX ALLERGY : HAVE YOU EVER DEVELOPED ANY TYPE OF REACTION DURING OR AFTER DENTAL APPOINTMENT, VAGINAL/RECTAL EXAMINATION, SURGICAL PROCEDURE, OR ANY OTHER EXPOSURE?NO LATEX RISK : HAVE YOU EVER HAD ANY DIFFICULTY BREATHING OR HIVES AFTER EATING OR HANDLING ANY FRUITS, OR VEGETABLES; SUCH KIWI, BANANAS, STONE FRUITS, OR CHESTNUTSNO LATEX RISK : DO YOU HAVE A PREVIOUS PERSONAL HISTORY OF MORE THAN NINE SURGERIES, SPINA BIFIDA, OR REPEATED CATHERIZATIONS? NO LATEX RISK : ARE YOU FREQUENTLY EXPOSED TO LATEX PRODUCTS IN YOUR OCCUPATION?NO DATE ASKED : 09/03/2020 ALCOHOL USE: NO. BMI CARE GOAL FOLLOW-UP ABOVE NORMAL BMI FOLLOW-UPDIETARY MANAGEMENT EDUCATION, GUIDANCE, AND COUNSELING ALCOHOL SCREENING DID YOU HAVE A DRINK CONTAINING ALCOHOL IN THE PAST YEAR?NO POINTS0 INTERPRETATIONNEGATIVE RECREATIONAL DRUG USE DRUG USE?NO CAFFEINE CAFFEINE USE?YES DIET PEPSI- 1/DAY SEXUAL HX HAD SEX IN THE LAST 12 MONTHS (VAGINAL, ORAL, OR ANAL)?NO HAVE YOU EVER HAD AN STD?NO HIV / HEP-C SCREENING HIV TEST OFFERED TO PATIENT:YES DATE OFFERED:05/27/2016 TEST ACCEPTED:NO HEP-C TEST OFFERED TO PATIENT:YES DATE OFFERED:05/27/2016 REASON:PATIENT DECLINED TEST ACCEPTED:NO REASON:PATIENT DECLINED TAOIST CAODAISM. LANGUAGE SRI LANKAN. EDUCATION 12 TH GRADE GRADUATE. 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 DIET: REGULAR. EXERCISE: WALKS. MARITAL STATUS: SINGLE. OTHERS AT HOME: NONE. TODAY'S VISIT 07/26/19, PATIENT DESCRIBES PAIN : HAVE IT ALL THE TIME, SORE, FROM 0-10, WHAT LEVEL IS YOUR PAIN TODAY? 4, PRECIPITATING FACTORS SITTING, ALLEVIATING FACTORS WALKING, IMPACT ON FUNCTION SOMETIMES. - PFS REFERRAL NEEDED?NO CLERGY REFERRAL NEEDED?NO PUBLIC HEALTH REFERRAL NEEDED?NO WAS THE PROVIDER NOTIFIED OF ANY PERTINENT INFO?YES HAS THE PATIENT BEEN EDUCATED REGARDING HIS/HER PLAN OF CARE?YES HAS THE PATIENT BEEN EDUCATED REGARDING PAIN, THE RISK FOR PAIN, THE IMPORTANCE OF EFFECTIVE PAIN MANAGEMENT, AND THE PAIN ASSESSMENT PROCESS?YES ADVANCE DIRECTIVE ADVANCE DIRECTIVE DISCUSSED WITH PATIENT:YES PT DECLINED HCP INFO AND ASSISTANCE AT THIS TIME. HOSPITALIZATION/MAJOR DIAGNOSTIC PROCEDURE [facility] 01/19 [facility] [place] 06/2017 [facility] [place] 07/2020 REVIEW OF SYSTEMS CONSTITUTIONAL: ANY RECENT FEVER NO . CHILLS NO . WEIGHT CHANGE OF UNKNOWN REASONS NO . GASTROENTEROLOGY: NEW UNEXPLAINABLE CHANGES IN BOWEL CONTROL NO . CONSTIPATION NO . GENITOURINARY: ANY NEW CHANGE IN BLADDER CONTROL? NO . NEUROLOGY: NEW ONSET DIZZINESS OR NEUROLOGICAL CHANGES NOT MENTIONED NO . NEW NUMBNESS OR PAIN PATTERNS NOT MENTIONED AND PERTINENT TO TODAY'S VISIT NO . CARDIOLOGY: NEW CHEST PRESSURE NO . PATIENT DENIES NO . RESPIRATORY: UNEXPLAINABLE COUGH NO . NEW SHORTNESS OF BREATH NO . VITAL SIGNS WT 164.8 LBS, HT 56.25 IN, BMI 36.62 INDEX, BP 135/69 MM HG, HR 66 /MIN, RR 18 /MIN, TEMP 99 F, OXYGEN SAT % 97%, SAFE IN ENV? (Y/N) YES, NA INITIALS MA 09:36T.KONSTANTIN SCHNEIDER. EXAMINATION GENERAL EXAMINATION: GENERALAWAKE,ALERT ,PLEASANT . PSYCHAFFECT NORMAL . LUNGS:LUNG EAST ARE CLEAR TO AUSCULTATION BILATERALLY. GOOD MOVEMENT OF AIR . HEART:S1, S2 IN A REGULAR RATE AND RHYTHM. NO SIGNIFICANT MURMURS, RUBS OR GALLOPS NOTED . ASSESSMENTS SPINAL STENOSIS OF LUMBOSACRAL REGION - M48.07 (PRIMARY) TREATMENT SPINAL STENOSIS OF LUMBOSACRAL REGION CONTINUE TIZANIDINE HCL TABLET, 2 MG, TAKE ONE TABLET BY MOUTH @12PM AND TAKE ONE TABLET @8PM CONTINUE DICLOFENAC SODIUM TABLET DELAYED RELEASE, 50 MG, 1 TABLET, ORALLY, TWICE A DAY PROCEDURE CODES FA211 ESTABILISHED PATIENT [facility] CHARGE DISPOSITION & COMMUNICATION FOLLOW UP 3 MONTHS (REASON: MED MGMNT/LOW BACK PAIN) ELECTRONICALLY SIGNED BY KENDALL ROY ON 09/04/2020 AT 01:00 PM EDT DISCLAIMER : THIS IS A VISIT SUMMARY EXTRACTED FROM THE [facility] CHART. IT IS NOT A COPY OF THE [facility] PROGRESS NOTE. ALEXANDRA
== END ==
LOC: M PAIN 09:15
PROVIDERS: ATTEND Nurse Practitioner Family
DX: M48.07 Spinal stenosis, lumbosacral region (principal); E03.9 Hypothyroidism, unspecified; J45.20 Mild intermittent asthma, uncomplicated; R73.01 Impaired fasting glucose; E55.9 Vitamin D deficiency, unspecified; M85.88 Other specified disorders of bone density and structure, other site; M81.0 Age-related osteoporosis without current pathological fracture; F25.0 Schizoaffective disorder, bipolar type; E66.01 Morbid (severe) obesity due to excess calories; F03.90 Unspecified dementia, unspecified severity, without behavioral disturbance, psychotic disturbance, mood disturbance, and anxiety; Z79.899 Other long term (current) drug therapy; Z68.36 Body mass index [BMI] 36.0-36.9, adult

== ENCOUNTER → 2020-10-02 | Outpatient (CLI) | payer OTHER, MEDICAID ==
[~2020-10-02] MED LIST changes: +ISOVUE-300 61% 50ML VIAL As Ordered ONE; +LIDOCAINE 1% MDV 20ML VIAL As Ordered ONE; +methylPREDNISolone SUSP 40MG/ML 1ML VIAL (DEPO MEDROL) As Ordered ONE
--- NOTE | 2020-10-03 07:53 | REP ---
INDICATION: DISPLACED FX RT SHOULDER. COMPARISON: None. TECHNIQUE: The procedure was performed under the direct supervision of Dr. Caraballo. The benefits and risks including but not limited to pain infection bleeding and anaphylaxis were explained to the patient and informed consent was obtained. The right glenohumeral joint space was localized using fluoroscopic guidance. The skin was prepped and draped in a sterile fashion. 1% lidocaine was used as a local anesthetic. Using fluoroscopic guidance, and last image hold technology, a 22 gauge spinal needle was inserted and advanced into the joint. 1 mL of Isovue-300 was injected to verify placement. 7 mL of a solution containing 5 mL of 1% lidocaine and 2 mL of Depo-Medrol 40 mg was injected. The needle was then removed. The patient tolerated the procedure well and there were no immediate complications. Less than 6 seconds of fluoroscopy time was utilized for this procedure. FINDINGS: None IMPRESSION: Fluoro guidance for right shoulder injection. <Electronically signed by Won Davenport > 10/02/20 [id number] <Electronically signed by Tod Caraballo > 10/03/20 [id number]
== END ==
LOC: M RADPRO 13:04
PROVIDERS: ATTEND Physician Assistant
DX: S42.121D Displaced fracture of acromial process, right shoulder, subsequent encounter for fracture with routine healing (principal)
CPT/HCPCS: 20610; 77002; J1030; Q9967

== ENCOUNTER 2020-11-04 13:08 | Emergency (ER) | payer OTHER, MEDICAID, MEDICARE ==
[~2020-11-04] VITALS: Ht 144.8 cm; Wt 75.3 kg
[~2020-11-04 13:08] MED LIST changes: -ISOVUE-300 61% 50ML VIAL As Ordered ONE; -LIDOCAINE 1% MDV 20ML VIAL As Ordered ONE; -methylPREDNISolone SUSP 40MG/ML 1ML VIAL (DEPO MEDROL) As Ordered ONE
[2020-11-04] MEDS ORDERED: TRAZ-252 (13:53)
[2020-11-04] MEDS ORDERED: LORazepam 1 MG TAB PO STA (17:48)
[2020-11-04 20:03] VITALS: BP 126/63
== END 2020-11-04 21:42 | disposition home or self-care (01) ==
LOC: M ED 13:08
DX: F41.0 Panic disorder [episodic paroxysmal anxiety] (principal); I10 Essential (primary) hypertension; E03.9 Hypothyroidism, unspecified; Z79.899 Other long term (current) drug therapy

== ENCOUNTER → 2020-12-06 | Outpatient (CLI) | payer MEDICARE, MEDICAID ==
[~2020-12-06] MED LIST changes: +TRAZ-252
== END ==
LOC: M PAIN 11:00
PROVIDERS: ATTEND Anesthesiology
DX: M48.07 Spinal stenosis, lumbosacral region (principal); E03.9 Hypothyroidism, unspecified; J45.20 Mild intermittent asthma, uncomplicated; R73.01 Impaired fasting glucose; E55.9 Vitamin D deficiency, unspecified; E66.01 Morbid (severe) obesity due to excess calories; F03.90 Unspecified dementia, unspecified severity, without behavioral disturbance, psychotic disturbance, mood disturbance, and anxiety; M85.80 Other specified disorders of bone density and structure, unspecified site; Z79.899 Other long term (current) drug therapy

== ENCOUNTER 2021-01-02 16:22 | Inpatient (IN) | payer MEDICARE, OTHER ==
[~2021-01-02] VITALS: Ht 142.2 cm; Wt 59.7 kg
--- OUTSIDE RECORDS SUMMARY | 2021-01-02 16:32 | CCD ---
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 Active confirmed 042227 008 Problem Vitamin D deficiency E55.9 Active confirmed 95039900 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 confirmed 371 076014 Problem Other amnesia R41.3 Active confirmed 553048 00 Problem Myalgia M79.1 Active confirmed 23262786 Problem Spinal stenosis of lumbosacral region M48.07 Ac tive confirmed 67600660 Problem Other chronic pain G89.29 Active confirmed 8 8937033 Problem Low back pain M54.5 Active confirmed 952996 009 Problem Lumbago due to displacement of intervertebral disc M51.26 Active confirmed 15245768 Problem Essential hypertension I10 Active confirmed 77333708 Problem 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 Active confirmed 15813565875868 Problem BMI 40.0-44.9, adult Z68.41 Active confirmed 477145707 Problem Age-related osteoporosis without current pathological fracture M81.0 Active confirmed 45561050 Problem 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 Activ e confirmed [id number] Problem Other intervertebral disc degeneration, lumbar region M51.36 Active confirmed 13218088 Problem Paresthesia of both feet R20.2 Active confirmed 433322021 Problem Hypothyroidism, unspecified E03.9 Active confirmed 49951230 Problem Impaired fasting glucose R73.01 Active confirmed 411244459 Problem Spondylolisthesis at L5-S1 level M43.17 Active confirmed 948524679 Problem Spondylosis of lumbosacral region without myelop athy or radiculopathy M47.817 Active confirmed 93031249 Problem Spondylosis of lumbar region without myelopathy or radiculopathy M47.816 Active confirmed 45733824 Problem Arthritis of shoulder region, right M19.011 Acti ve confirmed [id number] ALLERGIES No Known Allergies ENCOUNTERS from 1955 to 2020-12-24 Encounter Location Date Provider Diagnosis [place] [id number] [facility] [phone] [place] [address] Dec, Naomie Garcia IMMUNIZATIONS Vaccine Route Administration Date Status Influenza 18 yrs & older Flublok IM Intramuscular Jan 27, 2019 Administered Influenza 18 yrs & older Flublok IM Intramuscular Feb 16, 2018 Administered Pneumococcal Adult 0.5mL Pneumovax 23 IM Intramuscular July 20 014 Administered TDAP 0.5mL (Boostrix) IM Intramuscular Dec 20, 2012 Administe red Influenza 6mo & up Fluzone IM Intramuscular Jan 04, 2017 Admi nistered Influenza 6mo & up Fluzone Unknown Dec 28, 2015 Admin istered Influenza 18 yrs & older Flublok IM Intramuscular Dec 21, 2019 Administered Influenza 6mo & up Fluzone IM Intramuscular Dec 24, 2014 Admi nistered Influenza 6mo & up Fluzone IM Intramuscular Feb 15, 2014 Admi nistered Influenza 6mo & up Fluzone IM Intramuscular Dec 20, 2012 Admi nistered SOCIAL HISTORY Tobacco Use: Social History Observation Description Date Details (start date - stop date) Never Smoker Sex Assigned At : Social History Observation Description Sex Assigned At Unknown Audit Question Answer Notes Total Score: 0 Interpretation: Alcohol Education Sexual Hx: Question Answer Notes Had sex in the last 12 months (vaginal, oral, or anal)? No Have you ever had an STD? No Drug and Alcohol Question Answer Notes Total Score: 0 Interpretation: No problems reported Alcohol Screening: Question Answer Notes Did you have a drink containing alcohol in the past year? No Points 0 Interpretation Negative BMI Care Goal Follow-Up Question Answer Notes Above Normal BMI Follow-Up Dietary management educatio n, guidance, and counseling Tobacco Use: Question Answer Notes Are you a: never smoker never smoker REASON FOR REFERRAL No Information VITAL SIGNS No information MEDICATIONS Medication SIG (Take, Route, Frequency, Duration) Notes Start Da te End Date Status Diclofenac Sodium 50 MG 1 tablet Orally Twice a day for 30 Days Active Stool Softener 100 MG 1 capsule as needed Orally Once a day Not-Taking risperiDONE 2 MG 1 tablet Orally Once a day for 30 day(s) Active risperiDONE 1 MG TAKE ONE TABLET BY MOUTH @8AM Oral for 28 duplicate Not-Taking Multivitamin Adults - as directed Orally Active Rozerem 8 mg 1 tablet at bedtime as needed Not-Taking Wall Grab Bar - as directed Dx: M46.90, M51.36, M43.17 _ for 99 days Aug, Active Benefiber - Orally Not-Taking Benztropine Mesylate 0.5 MG TAKE ONE TABLET BY MOUTH @ 8AM and TAKE ONE TABLET @8PM Oral for 28 Active tiZANidine HCl 2 MG TAKE ONE TABLET BY MOUTH @12PM and TAKE ONE TAB LET @8PM Active Oyster Shell Calcium 500 MG TAKE ONE TABLET BY MOUTH @8AM for 28 Active Cogentin 0.5 MG 1 tab(s) 2 times a day Not-Taking traZODone HCl 50 MG 1/2 (25mg) tablet at bedtime as needed O rally Once a day HS Active Multivitamin Adults - Orally daily Not-Taking Hand Held Shower [place] - as directed Dx: M46.90, M51.36, M43.17 _ for 99 days Aug, Active Vitamin D3 50 MCG (2000 UT) TAKE ONE CAPSULE BY MOUTH @8AM Orally Once a day for 90 days Active Lactulose 10 GM/15ML TAKE 15 MILLILITERS BY MOUTH TWO TO THREE TIMES DAILY FOR CONSTIPATION Oral for 21 Not-Aldo ing Invega Trinza 819 MG/2.625ML INJECT ONE SYRINGE INTRAM USCULARLY FOR A SINGLE DOSE Intramuscular Not-Taking Biofreeze Roll-On 4 % 1 application to affected ar ea as needed Externally Once a day Not-Taking Rozerem 8 MG TAKE ONE TABLET BY MOUTH @8PM Oral for 28 duplicate Not-Taking Metoprolol Tartrate 25 mg TAKE ONE TABLET BY MOUTH @8A M and TAKE ONE TABLET @8PM Oral Twice a day for 30 Days Act merry Ramelteon 8 MG 1 tablet at bedtime as needed Orally Once a day Not-Taking Levothyroxine Sodium 50 MCG 1 tablet in the morning on an empty stomach Orally Once a day for 30 Days Active Bath/Shower Seat - as directed Dx: M46.90, M51.36, M43.17 _ for 99 days Aug, Active Mirtazapine 15 MG TAKE 1/2 TABLET BY MOUTH AT BEDTIME Oral Daily for 30 days Active Lisinopril 20 MG 1 tablet Orally Once a day for 30 Days Active Venlafaxine HCl ER 150 MG TAKE TWO CAPSULES BY MOUTH @8AM Oral or 28 duplicate Not-Taking Vitamin D 2000 UNIT 1 capsule Orally Once a day for 28 Not-Taking clonazePAM 1 MG (Schedule IV Drug) TAKE ONE TABLET BY MOUTH TWICE DAILY AND EVERY FOUR HOURS NEEDED FOR ANXIETY MAX DAILY DOSE THREE TABLETS Oral for 30 Not-Taking Paliperidone Palmitate 234 MG/1.5ML 1.5 ml Intramuscular per pt Q3mon ths Not-Taking Donepezil HCl 10 MG TAKE ONE TABLET BY MOUTH @8PM Oral for 28 duplica te Not-Taking Calcium 500 MG 1 tablet with meals Orally Daily for 30 Days Active LORazepam 1 MG 1 tablet at bedtime as needed Orally Once a day Active Effexor XR 150 MG 225mg-1 capsule with food Orally Once a day Active KlonoPIN 1 MG 1 tablet Orally BID No t-Taking risperiDONE 1 MG 1 tablet Orally 1mg am 2mg hs Active Donepezil HCl 10 MG 1 tablet at bedtime Orally Once a day Active PROCEDURES No Information RESULTS No Results REASON FOR VISIT Medication refill MEDICAL (GENERAL) HISTORY Type Description Date Medical History hypothyroidism Medical History myopic astigmatism Medical History calcaneal spurs Medical History asthma, mild intermittent Medical History IFG Medical History Osteopenia, DEXA 01/18, T sc ore -2, at Spine, Osteoporosis on DEXA 2014 Medical History Vit D deficiency Medical History 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 Raloxifene completed Medical History schizoaffective d/o with bipolar feature s Medical History 11/15 EKG Neg Medical History PN 11/18 Medical History morbid obesity Medical History memory impairment, neg work up 06/18. Medical History XR LS Spine 04/21 Mild Scolio sisconvex L/ Bilateral L5 Spondylolysis with grade 2 spodylolithesis/Adv L5-S1 DDD/Mod T12-L1 DDD Medical History JOSEPH 09/18 FEV1 2.19 Medical History MRI Lspine 12/19 - Diffuse d isc bulge at L4-5, L5-S1 with min thecal sac compression, grade 2 spondylolithesis of L5 on S1 with assoc L5 pars defect, there is compression of the L5 nerves in the neural foramina. 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 and exce ssive water intake Medical History Colonoscopy 26/06/2017: Normal, no specim ens collected Medical History Neurocognitive impairment Medical History comminuted acromium fracture R shoulder- 11/2019 Medical History dementia Surgical History L breast Bx 11/04/09 Surgical History L breast lumpectomy--DCIS 11/27/09 Surgical History colonoscopy: polyps without adenomatous or hyperplastic features; repeat 10 years 2012 Hospitalization History [facility]- schizoaffective d/o 01/19 [place] [facility] [place] [facility] 07/2020 Goals Section No Information Health Concerns No Information MEDICAL EQUIPMENT No Information MENTAL STATUS No Information FUNCTIONAL STATUS No Information ASSESSMENTS No Information PLAN OF TREATMENT Medication Medication Name Sig Start Date Stop Date Vitamin D3 50 MCG (1999) TAKE ONE CAPSULE BY MOUTH @8AM Orally Once a day for 90 days Diclofenac Sodium 50 MG 1 tablet Orally Twice a day for 30 Days Next Appt Details Provider Name:Naomie Garcia, 2020-03 01:00:00 PM, [address] [facility], , [place], [address], Provider Name:Evens Rowe, 2021-03-20 11:15:00 AM, [address] [facility] 3rd Floor, , [place], [address], Insurance Providers Payer Name Payer Address Payer Phone Insured Name Patient Relati onship to Insured Coverage Start Date Coverage End Date MEDICAID [place] [address] [facility] [address] [place] [employer] A[employer]NA MEDICARE AETNA [employer] [address] [facility] [address] [employer]
--- OUTSIDE RECORDS SUMMARY | 2021-01-02 16:32 | CCD | Continuity of Care Document ---
Author Author Yany NIEVES PA Organization Unknown Address [address] [place] [address] Phone [phone] Care Team Providers Care Gristmill Operator Name Role Phone Drea Croft AUTM [phone] Dee Key PA-C AUTM [phone] Problems Description No Information Available Social History Type Date Description Comments Sex Unknown ETOH Use Denies alcohol use Tobacco Use Start: Unknown Denies Smoking Allergies, Adverse Reactions, Alerts Description No Known Drug Allergies Medications Active Medications SIG Qnty Indications Ordering Provide r Date Vitamin D3 50mcg (1999 Ut) Tablets 1 by mouth every day Unknown Ramelteon 8mg Tablets Take One Tablet By Mouth @8PM Unknown Naproxen 500mg Tablets Drea Croft PA Invega Trinza 819mg/2.625ML Kari Rangel MD Lactulose 10GM/15ML Solution Dee Key PA-C Levothyroxine Sodium 50mcg Tablets Take One Tablet By Mouth Every Morning bottle Unknown Venlafaxine HCL ER 150mg Caps ER 2 4HR Take Two Capsules By Mouth @8Am Unknown Diclofenac Sodium 50mg Tablets Yesica Hernandez Crna Trazodone HCL 50mg Tablets Kari De León MD Clonazepam 1mg Tablets Kari De León MD Benztropine Mesylate 0.5mg Tablets Twice A Day for Side Effects Unknown Venlafaxine HCL 50mg Tablets Unknown Venlafaxine HCL 100mg Tablets Unknown Risperidone 0.25mg Tablets take 4 times a day bhy mouth. Unknown Risperidone 2mg Tablets 1 tab by mouth at bedtime Unknown Oyster Shell Calcium 500mg Tablets 1 by mouth every day Unknown Meloxicam 7.5mg Tablets 1 by mouth every day Unknown Donepezil HCL 10mg Tablets Unknown Tizanidine HCL 2mg Tablets Twice A Day as needed for Muscle Spasms Unknown 000 Lisinopril 20mg Tablets Daily Unknown Immunizations CPT Code Status Date Vaccine Lot # [id number] Given 12/28/2015 Influenza Virus Vaccine Split Virus Use For Individual 3Yr Older Vital Signs Date Vital Result Comment 08/28/2020 4:36pm Height 57 inches 4'9" Weight 163.00 lb BMI (Body Mass Index) 35.3 kg/m2 12/13/2019 3:25pm Body Temperature 97.1 F Results Description No Information Available Procedures Date Code Description Status 11/05/2020 16320 Office/Outpatient Established Lo w MDM 20-29 Min Completed 08/28/2020 61206 Office/Outpatient Established Lo w MDM 20-29 Min Completed 05/20/2020 05635 Phone Evaluation/Management By Gary magallon 5-10 Mins Completed Medical Devices Description No Information Available Encounters Type Date Location Provider Dx Diagnosis Office Visit 11/05/2020 11:[place]a [place] M19.011 Primary osteoarthritis, right shoulder S42.121G Disp fx of acromial pro, r s hldr, subs for fx w delay heal S42.121D Disp fx of acromial pro, r s hldr, subs for fx w routn heal Office Visit 08/28/2020 4:30p DEJA Lopez M19.011 Primary osteoarthritis, right shoulder S42.121G Disp fx of acromial pro, r s hldr, subs for fx w delay heal Office Visit 05/20/2020 1:20p DEJA Lopez S42.121D Disp fx of acromial pro, r shldr, subs for fx w routn heal M19.011 Primary osteoarthritis, righ t shoulder Assessments Date Code Description Provider 11/05/2020 M19.011 Primary osteoarthritis, right sh oulder DEJA Monterroso 11/05/2020 S42.121G Displaced fracture o f acromial process, right shoulder, subsequent encounter for fracture with delayed healing DEJA Monterroso 11/05/2020 S42.121D Displaced fracture o f acromial process, right shoulder, subsequent encounter for fracture with routine healing DEJA Monterroso 08/28/2020 M19.011 Primary osteoarthritis, right sh o[place]er DEJA Monterroso 08/28/2020 S42.121G Displaced fracture o f acromial process, right shoulder, subsequent encounter for fracture with delayed healing DEJA Monterroso 05/20/2020 S42.121D Displaced fracture o f acromial process, right shoulder, subsequent encounter for fracture with routine healing DEJA Monterroso 05/20/2020 M19.011 Primary osteoarthritis, right sh oulder DEJA Monterroso Plan of Treatment No Information Available Functional Status Description No Information Available Mental Status Description No Information Available Referrals Refer to Dr Reason for Referral Status Appt Date Evens Nieves I, Pac FLUORO INJ NO AUTH REQUIRED FOR FLUOROSCOPIC INJECTION TO RIGHT SHOULDER ([id number], [id number]) TO FRANCY Olivarez DG Created [address] [address] [phone] Evens Nieves I, Pac FLUORO INJ NO AUTH REQUIRED PER NIRALI Miramontes FOR FLUOROSCOPIC INJECTION TO RIGHT SHOULDER ([id number], [id number]) TO FRANCY Olivarez REF #: [id number]. DG Created [address] [address] [phone]
--- OUTSIDE RECORDS SUMMARY | 2021-01-02 16:32 | CCD ---
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 Active confirmed 732694 008 Problem Vitamin D deficiency E55.9 Active confirmed 72717671 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 confirmed 371 818103 Problem Other amnesia R41.3 Active confirmed 727907 00 Problem Myalgia M79.1 Active confirmed 33189153 Problem Spinal stenosis of lumbosacral region M48.07 Ac tive confirmed 01738877 Problem Other chronic pain G89.29 Active confirmed 8 1766109 Problem Low back pain M54.5 Active confirmed 339030 009 Problem Lumbago due to displacement of intervertebral disc M51.26 Active confirmed 49543182 Problem Essential hypertension I10 Active confirmed 51637075 Problem 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 Active confirmed 52473115440541 Problem BMI 40.0-44.9, adult Z68.41 Active confirmed 409289164 Problem Age-related osteoporosis without current pathological fracture M81.0 Active confirmed 76597358 Problem 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 Activ e confirmed 2288274716470460 Problem Other intervertebral disc degeneration, lumbar region M51.36 Active confirmed 19154134 Problem Paresthesia of both feet R20.2 Active confirmed 386894838 Problem Hypothyroidism, unspecified E03.9 Active confirmed 97654069 Problem Impaired fasting glucose R73.01 Active confirmed 293872393 Problem Spondylolisthesis at L5-S1 level M43.17 Active confirmed 243557760 Problem Spondylosis of lumbosacral region without myelop athy or radiculopathy M47.817 Active confirmed 96738691 Problem Spondylosis of lumbar region without myelopathy or radiculopathy M47.816 Active confirmed 72477144 Problem Arthritis of shoulder region, right M19.011 Acti ve confirmed [id number] ALLERGIES No Known Allergies ENCOUNTERS from 1955 to 2020-11-27 Encounter Location Date Provider Diagnosis [place] [id number] [facility] [phone] [place] [address] Nov, Dee Key IMMUNIZATIONS Vaccine Route Administration Date Status Influenza [...] Notes Start Da te End Date Status Venlafaxine HCl ER 150 MG TAKE TWO CAPSULES BY MOUTH @8AM Oral f or 28 duplicate Not-Taking Vitamin D3 50 MCG (1999 UT) TAKE ONE CAPSULE BY MOUTH @8AM Orally Once a day for 30 Days Active traZODone HCl 50 MG 1/2 (25mg) tablet at bedtime as needed O rally Once a day HS Active Multivitamin Adults - as directed Orally Active Multivitamin Adults - Orally daily Not-Taking Invega Trinza 819 MG/2.625ML INJECT ONE SYRINGE INTRAM USCULARLY FOR A SINGLE DOSE Intramuscular Not-Taking risperiDONE 1 MG TAKE ONE TABLET BY MOUTH @8AM Oral for 28 duplicate Not-Taking Lactulose 10 GM/15ML TAKE 15 MILLILITERS BY MOUTH TWO TO THREE TIMES DAILY FOR CONSTIPATION Oral for 21 Not-Aldo ing Ramelteon 8 MG 1 tablet at bedtime as needed Orally Once a day Not-Taking Paliperidone Palmitate 234 MG/1.5ML 1.5 ml Intramuscular per pt Q3mon ths Active Benztropine Mesylate 0.5 MG TAKE ONE TABLET BY MOUTH @ 8AM and TAKE ONE TABLET @8PM Oral for 28 Active Diclofenac Sodium 50 MG 1 tablet Orally Twice a day for 30 Days Jan, Active risperiDONE 2 MG 1 tablet Orally Once a day for 30 day(s) Active KlonoPIN 1 MG 1 tablet Orally BID No t-Taking Mirtazapine 15 MG TAKE 1/2 TABLET BY MOUTH AT BEDTIME Oral Daily for 30 days Active Cogentin 0.5 MG 1 tab(s) 2 times a day Not-Taking Effexor XR 150 MG 225mg-1 capsule with food Orally Once a day Active Rozerem 8 mg 1 tablet at bedtime as needed Not-Taking Benefiber - Orally Not-Taking Metoprolol Tartrate 25 mg TAKE ONE TABLET BY MOUTH @8A M and TAKE ONE TABLET @8PM Oral Twice a day for 30 Days Act merry [place] - as directed Dx: M46.90, M51.36, M43.17 _ for 99 days 25 Michel, 2021 Active Oyster Shell Calcium 500 MG TAKE ONE TABLET BY MOUTH @8AM for 28 Active Biofreeze Roll-On 4 % 1 application to affected ar ea as needed Externally Once a day Not-Taking Levothyroxine Sodium 50 MCG 1 tablet in the morning on an empty stomach Orally Once a day for 30 Days Active Stool Softener 100 MG 1 capsule as needed Orally Once a day Not-Taking risperiDONE 1 MG 1 tablet Orally 1mg am 2mg hs Active Donepezil HCl 10 MG 1 tablet at bedtime Orally Once a day Active clonazePAM 1 MG (Schedule IV Drug) TAKE ONE TABLET BY MOUTH TWICE DAILY AND EVERY FOUR HOURS NEEDED FOR ANXIETY MAX DAILY DOSE THREE TABLETS Oral for 30 Active tiZANidine HCl 2 MG TAKE ONE TABLET BY MOUTH @12PM and TAKE ONE TAB LET @8PM Active Vitamin D 2000 UNIT 1 capsule Orally Once a day for 28 Not-Taking Lisinopril 20 MG 1 tablet Orally Once a day for 30 Days Active Rozerem 8 MG TAKE ONE TABLET BY MOUTH @8PM Oral for 28 duplicate Not-Taking Donepezil HCl 10 MG TAKE ONE TABLET BY MOUTH @8PM Oral for 28 duplica te Not-Taking Hand Held Shower [place] - as directed Dx: M46.90, M51.36, M43.17 _ for 99 days Aug, Active Bath/Shower Seat - as directed Dx: M46.90, M51.36, M43.17 _ for 99 days Aug, Active Calcium 500 MG 1 tablet with meals Orally Daily for 30 Days Active PROCEDURES No Information RESULTS No Results REASON FOR VISIT Mirtazapine 15 MG Tablet MEDICAL (GENERAL) HISTORY Type Description Date Medical [...] features; repeat 10 years 2012 Hospitalization History [facility]- schizoaffective d/o 01/19 [place] [facility] [place] [facility] [place] Goals Section No Information Health Concerns No Information MEDICAL EQUIPMENT No Information MENTAL STATUS No Information FUNCTIONAL STATUS No Information ASSESSMENTS No Information PLAN OF TREATMENT Medication Medication Name Sig Start Date Stop Date Mirtazapine 15 MG TAKE 1/2 TABLET BY MOUTH AT BEDTIME Oral Daily for 30 days Calcium 500 MG 1 tablet with meals Orally Daily for 30 Days Vitamin D3 50 MCG (1999 [place]) TAKE ONE CAPSULE BY MOUTH @8AM Orally Once a day for 30 Days Next Appt Details Provider Name:Evens Rowe, 2020-12-06 11:00:00 AM, [address] [facility] [address] [facility], , [place], [address], Provider Name:Naomie Garcia, 2020-03 01:00:00 PM, [address] [facility], , [place], [address], Insurance Providers Payer Name Payer Address Payer Phone Insured Name Patient Relati onship to Insured Coverage Start Date Coverage End Date MEDICAID [place] [address] [facility] [address] [place] FUN[place] MEDICARE Part A and B [address] [facility] [address] [phone] [employer]
--- OUTSIDE RECORDS SUMMARY | 2021-01-02 16:32 | CCD | Continuity of Care Document ---
Author Author Yany NIEVES PA Organization Unknown Address [address] [place] [address] Phone [phone] Care Team Providers Care Leadership Development Consultant Name Role Phone Drea Croft AUTM [phone] Dee Key PA-C AUTM [phone] Problems Description No Information Available Social History [...] CPT Code Status Date Vaccine Lot # [id number] Given 12/28/2015 Influenza Virus Vaccine Split Virus Use For Individual 3Yr Older Vital Signs Date Vital Result Comment 08/28/2020 4:36pm Height 57 inches 4'9" Weight 163.00 lb BMI (Body Mass Index) 35.3 kg/m2 12/13/2019 3:25pm Body Temperature 97.1 F Results Description No Information Available Procedures Date Code Description Status 11/05/2020 82968 Phone Evaluation/Management By Gary magallon 5-10 Mins Completed 08/28/2020 67131 Office/Outpatient Established Lo w MDM 20-29 Min Completed 05/20/2020 41503 Phone Evaluation/Management By Gary magallon 5-10 Mins Completed Medical Devices Description No Information Available Encounters Type Date Location Provider Dx Diagnosis Office Visit 11/05/2020 11:[place]a [place] S42.121D Disp fx of acromial pro, r shldr, subs for fx w routn heal M19.011 Primary osteoarthritis, righ t shoulder Office Visit 08/28/2020 4:30p [place] M19.011 Primary osteoarthritis, right shoulder S42.121G Disp fx of acromial pro, r s hldr, subs for fx w delay heal Office Visit 05/20/2020 1:20p [place] S42.121D Disp fx of acromial pro, r shldr, subs for fx w routn heal M19.011 Primary osteoarthritis, righ t shoulder Assessments Date Code Description Provider 11/05/2020 S42.121D Displaced fracture o f acromial process, right shoulder, subsequent encounter for fracture with routine healing DEJA Monterroso 11/05/2020 M19.011 Primary osteoarthritis, right sh oulder DEJA Monterroso 08/28/2020 M19.011 Primary osteoarthritis, right sh johannyer DEJA Mnoterroso 08/28/2020 S42.121G Displaced fracture o f acromial process, right shoulder, subsequent encounter for fracture with delayed healing DEJA Monterroso 05/20/2020 S42.121D Displaced fracture o f acromial process, right shoulder, subsequent encounter for fracture with routine healing DEJA Monterroso 05/20/2020 M19.011 Primary osteoarthritis, right sh johannyer DEJA Monterroso Plan of Treatment No Information Available Functional Status Description No Information Available Mental Status Description No Information Available Referrals Refer to Dr Reason for Referral Status Appt Date Evens Nieves Pac REFERRAL NO AUTH REQUIRED FO R REFERRAL TO [facility] TO MEDICAL DIRECTOR. DG Created [facility] [address] [phone] Evens Nieves Pac REFERRAL NO AUTH REQUIRED FO R REFERRAL TO [facility]TH[facility] TO MEDICAL DIRECTOR. DG Created [address] [address] [phone] Evens Nieves Pac FLUORO INJ NO AUTH REQUIRED FOR FLUOROSCOPIC INJECTION TO RIGHT SHOULDER (82099, ) TO FRANCY Olivarez DG Created [address] [address] [phone] Evens Nieves Pac FLUORO INJ NO AUTH REQUIRED PER NIRALI Miramontes FOR FLUOROSCOPIC INJECTION TO RIGHT SHOULDER (, ) TO FRANCY Puckett. REF #: [id number]. DG Created [address] [address] [phone]
--- OUTSIDE RECORDS SUMMARY | 2021-01-02 16:32 | CCD ---
Author Author [facility] Organization [facility] Address Unknown Phone Unavailable Care Team Providers Care Cigar Head Puncher Name Role Phone Dee Key Unavailable PROBLEMS Type Condition ICD9-CM Code [id number] Code Onset Dates Condition S tatus W/U Status Risk SNOMED Code Notes Problem Schizoaffective disorder, bipolar type F25.0 A ctive confirmed 39371736 Problem Vitamin D deficiency, unspecified E55.9 Active con firmed 55755522 Problem Morbid (severe) obesity due to excess calories E66 .01 Active confirmed 188540293 Problem 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 Active confirmed 723052 008 Problem Vitamin D deficiency E55.9 Active confirmed 07052552 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 confirmed 371 831344 Problem Other amnesia R41.3 Active confirmed 733433 00 Problem Myalgia M79.1 Active confirmed 18146909 Problem Spinal stenosis of lumbosacral region M48.07 Ac tive confirmed 06232565 Problem Other chronic pain G89.29 Active confirmed 8 6952218 Problem Low back pain M54.5 Active confirmed 114393 009 Problem Lumbago due to displacement of intervertebral disc M51.26 Active confirmed 41739190 Problem Essential hypertension I10 Active confirmed 31520448 Problem 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 Active confirmed 95011630033367 Problem BMI 40.0-44.9, adult Z68.41 Active confirmed 781510023 Problem Age-related osteoporosis without current pathological fracture M81.0 Active confirmed 90876600 Problem 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 Activ e confirmed 6551932458969570 Problem Other intervertebral disc degeneration, lumbar region M51.36 Active confirmed 90728627 Problem Paresthesia of both feet R20.2 Active confirmed 545093112 Problem Hypothyroidism, unspecified E03.9 Active confirmed 29858828 Problem Impaired fasting glucose R73.01 Active confirmed 838604019 Problem Spondylolisthesis at L5-S1 level M43.17 Active confirmed 564213271 Problem Spondylosis of lumbosacral region without myelop athy or radiculopathy M47.817 Active confirmed 89715969 Problem Spondylosis of lumbar region without myelopathy or radiculopathy M47.816 Active confirmed 72365367 Problem Arthritis of shoulder region, right M19.011 Acti ve confirmed [id number] ALLERGIES No Known Allergies ENCOUNTERS from 1955 to 2020-11-29 Encounter Location Date Provider Diagnosis [place] [address] [facility] [phone] [place] [address] Nov, Dee Shahid Schizoaffective disorder, bi polar type F25.0 and Age-related osteoporosis without current pathological fracture M81.0 IMMUNIZATIONS Vaccine Route Administration Date Status Influenza [...] REASON FOR REFERRAL No Information VITAL SIGNS Weight 165 lbs Nov, Weight-kg 74.84 kg Nov, Height 56.25 in Nov, BMI 36.66 kg/m2 Nov, Heart Rate 89 /min Nov, Respiratory Rate 18 /min Nov, Temperature 98.0 degrees Fahrenheit Nov, Oximetry 99 Nov, Blood pressure systolic 132 mm Hg Nov, Blood pressure diastolic 72 mm Hg Nov, MEDICATIONS Medication SIG (Take, Route, Frequency, Duration) [...] a day for 30 Days Act merry Wall Grab Bar - as directed Dx: M46.90, M51.36, M43.17 _ for 99 days Aug, Active Oyster Shell Calcium 500 MG TAKE [...] 28 duplica te Not-Taking Hand Held Shower [place] - as directed Dx: M46.90, M51.36, M43.17 _ for 99 days Aug, Active Bath/Shower Seat - as directed Dx: M46.90, M51.36, M43.17 _ for 99 days Aug, Active Calcium 500 MG 1 tablet with meals Orally Daily for 30 Days Active PROCEDURES No Information RESULTS No Results REASON FOR VISIT [facility] ER Follow up MEDICAL (GENERAL) HISTORY Type Description Date Medical [...] features; repeat 10 years 2012 Hospitalization History [facility]- schizoaffective d/o 01/19 [place] [facility] [place] [facility] [place] Goals Section No Information Health Concerns No Information MEDICAL EQUIPMENT No Information MENTAL STATUS No Information FUNCTIONAL STATUS No Information ASSESSMENTS Encounter Date Diagnosis Assessment Notes Treatment Notes Treatm ent Clinical Notes Nov, Schizoaffective disorder, bipolar type (ICD-10 - F25.0) doing much better, patient continues to follow with [facility] for management, patient is aware she can call her psychiatrist office for refills if she runs out Nov, Age-related osteoporosis wit hout current pathological fracture (ICD-10 - M81.0) Nov, Other Total time spen t with the patient on the day of the encounter: 20 minutes PLAN OF TREATMENT Medication Medication Name Sig Start Date Stop Date Mirtazapine 15 MG TAKE 1/2 TABLET BY MOUTH AT BEDTIME Oral Daily for 30 days Calcium 500 MG 1 tablet with meals Orally Daily for 30 Days Vitamin D3 50 MCG (1999 [place]) TAKE ONE CAPSULE BY MOUTH @8AM Orally Once a day for 30 Days Treatment Notes Assessment Notes Clinical Notes Schizoaffective disorder, bipolar type d oing much better, patient continues to follow with [facility] for management, patient is aware she can call her psychiatrist office for refills if she runs out Next Appt Details 3 Months Reason: Provider Name:Evens Rowe, 2020-12-06 11:00:00 AM, [address] [facility] [address] [facility], , [place], [address], Provider Name:Naomie Garcia, 2020-03 01:00:00 PM, [address] [facility], , [place], [address], Insurance Providers Payer Name Payer Address Payer Phone Insured Name Patient Relati onship to Insured Coverage Start Date Coverage End Date MEDICAID [employer] [address] [facility] [address] LU[place]MAR[place] FUNES self MEDICARE Part A and B [address] [facility] [address] [phone] LUZMARIA FUNES self
--- OUTSIDE RECORDS SUMMARY | 2021-01-02 16:32 | CCD | Continuity of Care Document ---
Author Author Yany NIEVES PA Organization Unknown Address [address] [place] [address] Phone [phone] Care Team Providers Care Police Reserves Commander Name Role Phone Drea Croft AUTM [phone] Dee Key PA-C AUTM [phone] Problems Description No Information Available Social History [...] CPT Code Status Date Vaccine Lot # [id number] Given 12/28/2015 Influenza Virus Vaccine Split Virus Use For Individual 3Yr Older Vital Signs Date Vital Result Comment 08/28/2020 4:36pm Height 57 inches 4'9" Weight 163.00 lb BMI (Body Mass Index) 35.3 kg/m2 12/13/2019 3:25pm Body Temperature 97.1 F Results Description No Information Available Procedures Date Code Description Status 11/05/2020 95706 Office/Outpatient Established Lo w MDM 20-29 Min Completed 08/28/2020 78328 Office/Outpatient Established Lo w MDM 20-29 Min Completed 05/20/2020 49826 Phone Evaluation/Management By Gary magallon 5-10 Mins Completed Medical Devices Description No Information Available Encounters Type Date Location Provider Dx Diagnosis Office Visit 11/05/2020 11:00a [place] M19.011 Primary osteoarthritis, right shoulder S42.121G [...] REQUIRED FOR FLUOROSCOPIC INJECTION TO RIGHT SHOULDER (31212, 24791) TO FRANCY Olivarez DG Created [address] [address] [phone] Evens Nieves I, Pac FLUORO INJ NO AUTH REQUIRED PER NIRALI Miramontes FOR FLUOROSCOPIC INJECTION TO RIGHT SHOULDER (76576, 48934) TO FRANCY Olivarez REF #: [id number]. DG Created [address] [address] [phone]
--- OUTSIDE RECORDS SUMMARY | 2021-01-02 16:32 | CCD | Continuity of Care Document ---
Author Author Yany NIEVES PA Organization Unknown Address [address] [place] [address] Phone [phone] Care Team Providers Care Machine Puller Name Role Phone Drea Croft AUTM [phone] Dee Key PA-C AUTM [phone] Problems Description No Information Available Social History [...] CPT Code Status Date Vaccine Lot # [id number] Given 12/28/2015 Influenza Virus Vaccine Split Virus Use For Individual 3Yr Older Vital Signs Date Vital Result Comment 08/28/2020 4:36pm Height 57 inches 4'9" Weight 163.00 lb BMI (Body Mass Index) 35.3 kg/m2 12/13/2019 3:25pm Body Temperature 97.1 F Results Description No Information Available Procedures Date Code Description Status 11/05/2020 55626 Office/Outpatient Established Lo w MDM 20-29 Min Completed 08/28/2020 52790 Office/Outpatient Established Lo w MDM 20-29 Min Completed 05/20/2020 88837 Phone Evaluation/Management By Gary magallon 5-10 Mins Completed Medical Devices Description No Information Available Encounters Type Date Location Provider Dx Diagnosis Office Visit 11/05/2020 11:00a [place] M19.011 Primary osteoarthritis, right shoulder S42.121G Disp [...] subsequent encounter for fracture with routine healing DEAJ Monterroso 05/20/2020 M19.011 Primary osteoarthritis, right sh oulder DEJA Monterroso Plan of Treatment No Information Available Functional Status Description No Information Available Mental Status Description No Information Available Referrals Refer to Dr Reason for Referral Status Appt Date Evens Nieves I, Pac FLUORO INJ NO AUTH REQUIRED FOR FLUOROSCOPIC INJECTION TO RIGHT SHOULDER (95693, 85998) TO FRANCY Olivarez DG Created [address] [address] [phone] Evens Nieves I, Pac FLUORO INJ NO AUTH REQUIRED PER NIRALI Miramontes FOR FLUOROSCOPIC INJECTION TO RIGHT SHOULDER (47214, 59922) TO FRANCY Olivarez REF #: [id number]. DG Created [address] [address] [phone]
--- OUTSIDE RECORDS SUMMARY | 2021-01-02 16:32 | CCD ---
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 Active confirmed 587152 008 Problem Vitamin D deficiency E55.9 Active confirmed 45560353 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 confirmed 371 653303 Problem Other amnesia R41.3 Active confirmed 735986 00 Problem Myalgia M79.1 Active confirmed 98406453 Problem Spinal stenosis of lumbosacral region M48.07 Ac tive confirmed 37199752 Problem Other chronic pain G89.29 Active confirmed 8 3296838 Problem Low back pain M54.5 Active confirmed 679541 009 Problem Lumbago due to displacement of intervertebral disc M51.26 Active confirmed 51832868 Problem Essential hypertension I10 Active confirmed 84605677 Problem 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 Active confirmed 35310171664257 Problem BMI 40.0-44.9, adult Z68.41 Active confirmed 832039419 Problem Age-related osteoporosis without current pathological fracture M81.0 Active confirmed 95866093 Problem 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 Activ e confirmed 4606526737597634 Problem Other intervertebral disc degeneration, lumbar region M51.36 Active confirmed 59024570 Problem Paresthesia of both feet R20.2 Active confirmed 289371988 Problem Hypothyroidism, unspecified E03.9 Active confirmed 37880917 Problem Impaired fasting glucose R73.01 Active confirmed 212929222 Problem Spondylolisthesis at L5-S1 level M43.17 Active confirmed 774490571 Problem Spondylosis of lumbosacral region without myelop athy or radiculopathy M47.817 Active confirmed 50162209 Problem Spondylosis of lumbar region without myelopathy or radiculopathy M47.816 Active confirmed 61663748 Problem Arthritis of shoulder region, right M19.011 Acti ve confirmed [id number] ALLERGIES No Known Allergies ENCOUNTERS from 1955 to 2020-12-24 Encounter Location Date Provider Diagnosis [place] [address] [facility] [phone] [place] [address] Dec, Naomie Garcia IMMUNIZATIONS Vaccine Route Administration [...] - Orally daily Not-Taking Hand Held Shower [place] - as directed Dx: M46.90, M51.36, M43.17 [...] Information RESULTS No Results REASON FOR VISIT refill MEDICAL (GENERAL) HISTORY Type Description Date [...] features; repeat 10 years 2012 Hospitalization History [facility]- schizoaffective d/o 01/19 Hospitalization History [facility] [place] [facility] [place] Goals Section No Information Health Concerns [...] Provider Name:Naomie Garcia, 2020-03 01:00:00 PM, [address] [facility], , [place], [address], Provider Name:Evens Rowe, 2021-03-20 11:15:00 AM, [address] [facility] 3rd Floor, , [place], [address], Insurance Providers Payer Name Payer Address Payer Phone Insured Name Patient Relati onship to Insured Coverage Start Date Coverage End Date AETNA MEDICARE [employer] [address] [facility] [address] [place] FUNES MEDICAID [employer] )[id number] [address] [facility] [address] [place] FUNES
--- OUTSIDE RECORDS SUMMARY | 2021-01-02 16:32 | CCD ---
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 Active confirmed 531699 008 Problem Vitamin D deficiency E55.9 Active confirmed 31332202 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 confirmed 371 944693 Problem Other amnesia R41.3 Active confirmed 469147 00 Problem Myalgia M79.1 Active confirmed 07185442 Problem Spinal stenosis of lumbosacral region M48.07 Ac tive confirmed 84648614 Problem Other chronic pain G89.29 Active confirmed 8 6112706 Problem Low back pain M54.5 Active confirmed 778786 009 Problem Lumbago due to displacement of intervertebral disc M51.26 Active confirmed 42824498 Problem Essential hypertension I10 Active confirmed 38439826 Problem 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 Active confirmed 79178138107349 Problem BMI 40.0-44.9, adult Z68.41 Active confirmed 837489711 Problem Age-related osteoporosis without current pathological fracture M81.0 Active confirmed 30179234 Problem 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 Activ e confirmed 6947952409805740 Problem Other intervertebral disc degeneration, lumbar region M51.36 Active confirmed 59551794 Problem Paresthesia of both feet R20.2 Active confirmed 289986581 Problem Hypothyroidism, unspecified E03.9 Active confirmed 70725077 Problem Impaired fasting glucose R73.01 Active confirmed 139012697 Problem Spondylolisthesis at L5-S1 level M43.17 Active confirmed 218021493 Problem Spondylosis of lumbosacral region without myelop athy or radiculopathy M47.817 Active confirmed 67036882 Problem Spondylosis of lumbar region without myelopathy or radiculopathy M47.816 Active confirmed 45542914 Problem Arthritis of shoulder region, right M19.011 Acti ve confirmed [id number] ALLERGIES No Known Allergies ENCOUNTERS from 1955 to 2020-12-06 Encounter Location Date Provider Diagnosis [facility] [address] [phone] [place] [address] Dec, Augusta Aguirre Spinal stenosis of l umbosacral region M48.07 IMMUNIZATIONS Vaccine Route Administration Date Status Influenza [...] FOR REFERRAL No Information VITAL SIGNS Weight 169.2 lbs Dec, Weight-kg 76.75 kg Dec, Height 56.25 in Dec, BMI 37.59 kg/m2 Dec, Heart Rate 66 /min Dec, Respiratory Rate 18 /min Dec, Temperature 98.4 degrees Fahrenheit Dec, Oximetry 99% Dec, Blood pressure systolic 132 mm Hg Dec, Blood pressure diastolic 61 mm Hg Dec, MEDICATIONS Medication SIG (Take, Route, Frequency, Duration) Notes Start Da te End Date Status risperiDONE 1 MG TAKE ONE TABLET BY MOUTH @8AM Oral for 28 duplicate Not-Taking Multivitamin Adults - as directed Orally Active risperiDONE 2 MG 1 tablet Orally Once a day for 30 day(s) Active Donepezil HCl 10 MG TAKE ONE TABLET BY MOUTH @8PM Oral for 28 duplica te Not-Taking Vitamin D 2000 UNIT 1 capsule Orally Once a day for 28 Not-Taking Rozerem 8 mg 1 tablet at bedtime as needed Not-Taking tiZANidine HCl 2 MG TAKE ONE TABLET BY MOUTH @12PM and TAKE ONE TAB LET @8PM Active Oyster Shell Calcium 500 MG TAKE ONE TABLET BY MOUTH @8AM for 28 Active Benztropine Mesylate 0.5 MG TAKE ONE TABLET BY MOUTH @ 8AM and TAKE ONE TABLET @8PM Oral for 28 Active Diclofenac Sodium 50 MG 1 tablet Orally Twice a day for 30 Days Active Stool Softener 100 MG 1 capsule as needed Orally Once a day Not-Taking Cogentin 0.5 MG 1 tab(s) 2 times a day Not-Taking traZODone HCl 50 MG 1/2 (25mg) tablet at bedtime as needed O rally Once a day HS Active Multivitamin Adults - Orally daily Not-Taking Wall Grab Bar - as directed Dx: M46.90, M51.36, M43.17 _ for 99 days Aug, Active Benefiber - Orally Not-Taking Lactulose 10 GM/15ML TAKE 15 MILLILITERS BY MOUTH TWO TO THREE TIMES DAILY FOR CONSTIPATION Oral for 21 Not-Aldo ing Invega Trinza 819 MG/2.625ML INJECT ONE SYRINGE INTRAM USCULARLY FOR A SINGLE DOSE Intramuscular Not-Taking Biofreeze Roll-On 4 % 1 application to affected ar ea as needed Externally Once a day Not-Taking Metoprolol Tartrate 25 mg TAKE ONE TABLET BY MOUTH @8A M and TAKE ONE TABLET @8PM Oral Twice a day for 30 Days Act merry Vitamin D3 50 MCG (1999) TAKE ONE CAPSULE BY MOUTH @8AM Orally Once a day for 30 Days Active Ramelteon 8 MG 1 tablet at bedtime as needed Orally Once a day Not-Taking Lisinopril 20 MG 1 tablet Orally Once a day for 30 Days Active Venlafaxine HCl ER 150 MG TAKE TWO CAPSULES BY MOUTH @8AM Oral or duplicate Not-Taking Mirtazapine 15 MG TAKE 1/2 TABLET BY MOUTH AT BEDTIME Oral Daily for 30 days Active Rozerem 8 MG TAKE ONE TABLET BY MOUTH @8PM Oral for 28 duplicate Not-Taking Hand Held Shower [place] - as directed Dx: M46.90, M51.36, M43.17 _ for 99 Aug, Active Bath/Shower Seat - as directed Dx: M46.90, M51.36, M43.17 _ for Aug, Active clonazePAM 1 MG (Schedule IV Drug) TAKE ONE TABLET BY MOUTH TWICE DAILY AND EVERY FOUR HOURS NEEDED FOR ANXIETY MAX DAILY DOSE THREE TABLETS Oral for 30 Not-Taking Paliperidone Palmitate 234 MG/1.5ML 1.5 ml Intramuscular per pt Q3mon ths Not-Taking Levothyroxine Sodium 50 MCG 1 tablet in the morning on an empty stomach Orally Once a day for 30 Days Active Calcium 500 MG 1 tablet with [...] Information RESULTS No Results REASON FOR VISIT med mgmnt/low back pain MEDICAL (GENERAL) HISTORY Type Description Date Medical [...] features; repeat 10 years 2012 [facility] [place] [facility] [place] [facility] [place] Goals Section No Information Health Concerns No Information MEDICAL EQUIPMENT No Information MENTAL STATUS No Information FUNCTIONAL STATUS No Information ASSESSMENTS Encounter Date Diagnosis Assessment Notes Treatment Notes Treatm ent Clinical Notes Dec, Spinal stenosis of lumbosacral region (ICD-10 - M48.07) After discussing with the patient we will continue her current regimen of diclofenac as she finds it beneficial in controlling her pain. I also discussed with her that she isn't taking any controlled substances from [facility] and her pain has been stablized for some time on her current medications. Her new primary care provider, Lois Garcia may be comfortable with prescribing this medication for her and if this is the case then she can follow with [facility] on an as needed basis. She hasn't had a visit with Lois at this time so we will follow up in 3 months for low back pain/medication management or sooner for concerns. PLAN OF TREATMENT Medication Medication Name Sig Start Date Stop Date Diclofenac Sodium 50 MG 1 tablet Orally Twice a day for 30 Days Treatment Notes Assessment Notes Clinical Notes Spinal stenosis of lumbosacral region Af ter discussing with the patient we will continue her current regimen of diclofenac as she finds it beneficial in controlling her pain. I also discussed with her that she isn't taking any controlled substances from [facility] and her pain has been stablized for some time on her current medications. Her new primary care provider, Lois Garcia may be comfortable with prescribing this medication for her and if this is the case then she can follow with [facility] on an as needed basis. She hasn't had a visit with Lois at this time so we will follow up in 3 months for low back pain/medication management or sooner for concerns. Next Appt Details 3 months Reason:Low back pain/Medication Management Provider Name:Naomie Garcia, 2020-03 01:00:00 PM, [address] [facility], , [place], [address], Provider Name:Evens Jae, 2021-03-20 11:15:00 AM, [address] [facility] 3rd Floor, , [place], [address], Follow Up:3 monthsLow back pain/Medication Management Insurance Providers Payer Name Payer Address Payer Phone Insured Name Patient Relati onship to Insured Coverage Start Date Coverage End Date MEDICAID [employer] [address] [facility] [id number] LUZMARIA FUNES MEDICARE Part A and B [address] [facility] [address] [phone] LU[employer]MARIA FUNES
--- OUTSIDE RECORDS SUMMARY | 2021-01-02 16:32 | CCD ---
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 Active confirmed 924775 008 Problem Vitamin D deficiency E55.9 Active confirmed 47913057 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 confirmed 371 615453 Problem Other amnesia R41.3 Active confirmed 162829 00 Problem Myalgia M79.1 Active confirmed 38925519 Problem Spinal stenosis of lumbosacral region M48.07 Ac tive confirmed 23706449 Problem Other chronic pain G89.29 Active confirmed 8 2219476 Problem Low back pain M54.5 Active confirmed 851470 009 Problem Lumbago due to displacement of intervertebral disc M51.26 Active confirmed 55714999 Problem Essential hypertension I10 Active confirmed 14374852 Problem 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 Active confirmed 16645731988078 Problem BMI 40.0-44.9, adult Z68.41 Active confirmed 901480560 Problem Age-related osteoporosis without current pathological fracture M81.0 Active confirmed 94413243 Problem 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 Activ e confirmed 2448290837351231 Problem Other intervertebral disc degeneration, lumbar region M51.36 Active confirmed 14435561 Problem Paresthesia of both feet R20.2 Active confirmed 410469207 Problem Hypothyroidism, unspecified E03.9 Active confirmed 69111580 Problem Impaired fasting glucose R73.01 Active confirmed 107361652 Problem Spondylolisthesis at L5-S1 level M43.17 Active confirmed 592038439 Problem Spondylosis of lumbosacral region without myelop athy or radiculopathy M47.817 Active confirmed 04845846 Problem Spondylosis of lumbar region without myelopathy or radiculopathy M47.816 Active confirmed 65895801 Problem Arthritis of shoulder region, right M19.011 Acti ve confirmed [id number] ALLERGIES No Known Allergies ENCOUNTERS from 1955 to 2020-11-20 Encounter Location Date Provider Diagnosis [place] [id number] [facility] [phone] [place] [address] 14 Nov, 2020 Dee Key IMMUNIZATIONS Vaccine Route Administration Date [...] Notes Start Da te End Date Status Paliperidone Palmitate 234 MG/1.5ML 1.5 ml Intramuscular per pt Q3mon ths Active Lactulose 10 GM/15ML TAKE 15 MILLILITERS BY MOUTH TWO TO THREE TIMES DAILY FOR CONSTIPATION Oral for 21 Not-Aldo ing Diclofenac Sodium 50 MG 1 tablet Orally Twice a day for 30 Days Jan, Active Venlafaxine HCl ER 150 MG TAKE TWO CAPSULES BY MOUTH @8AM Oral f or 28 duplicate Not-Taking Benztropine Mesylate 0.5 MG TAKE ONE TABLET BY MOUTH @ 8AM and TAKE ONE TABLET @8PM Oral for 28 Active traZODone HCl 50 MG 1/2 (25mg) tablet at bedtime as needed O rally Once a day HS Active risperiDONE 1 MG 1 tablet Orally 1mg am 2mg hs Active Cogentin 0.5 MG 1 tab(s) 2 times a day Not-Taking Ramelteon 8 MG 1 tablet at bedtime as needed Orally Once a day Not-Taking risperiDONE 1 MG TAKE ONE TABLET BY MOUTH @8AM Oral for 28 duplicate Not-Taking Calcium 500 MG 1 tablet with meals Orally Daily for 28 Active Mirtazapine 15 MG TAKE 1/2 TABLET BY MOUTH AT BEDTIME Oral Daily for 30 days Active Rozerem 8 mg 1 tablet at bedtime as needed Not-Taking KlonoPIN 1 MG 1 tablet Orally BID No t-Taking Biofreeze Roll-On 4 % 1 application to affected ar ea as needed Externally Once a day Not-Taking risperiDONE 2 MG 1 tablet Orally Once a day for 30 day(s) Active Effexor XR 150 MG 225mg-1 capsule with food Orally Once a day Active clonazePAM 1 MG (Schedule IV Drug) TAKE ONE TABLET BY MOUTH TWICE DAILY AND EVERY FOUR HOURS NEEDED FOR ANXIETY MAX DAILY DOSE THREE TABLETS Oral for 30 Active Stool Softener 100 MG 1 capsule as needed Orally Once a day Not-Taking Benefiber - Orally Not-Taking tiZANidine HCl 2 MG TAKE ONE TABLET BY MOUTH @12PM and TAKE ONE TAB LET @8PM Active Vitamin D 2000 UNIT 1 capsule Orally Once a day for 28 Not-Taking Multivitamin Adults - Orally daily Not-Taking Lisinopril 20 MG 1 tablet Orally Once a day for 30 Days Active Oyster Shell Calcium 500 MG TAKE ONE TABLET BY MOUTH @8AM for 28 Active Donepezil HCl 10 MG 1 tablet at bedtime Orally Once a day Active Vitamin D3 50 MCG (2000 UT) TAKE ONE CAPSULE BY MOUTH @8AM Orally Once a day for 30 Days Active Invega Trinza 819 MG/2.625ML INJECT ONE SYRINGE INTRAM USCULARLY FOR A SINGLE DOSE Intramuscular Not-Taking Levothyroxine Sodium 50 MCG 1 tablet in the morning on an empty stomach Orally Once a day for 30 Days Active Multivitamin Adults - as directed Orally Active Metoprolol Tartrate 25 mg TAKE ONE TABLET BY MOUTH @8A M and TAKE ONE TABLET @8PM Oral Twice a day for 30 Days Act merry Wall Grab Bar - as directed Dx: M46.90, M51.36, M43.17 _ for 99 days Aug, Active Hand Held Shower [place] - as directed Dx: M46.90, M51.36, M43.17 _ for 99 days Aug, Active Rozerem 8 MG TAKE ONE TABLET BY MOUTH @8PM Oral for 28 duplicate Not-Taking Donepezil HCl 10 MG TAKE ONE TABLET BY MOUTH @8PM Oral for 28 duplica te Not-Taking Bath/Shower Seat - as directed Dx: M46.90, M51.36, M43.17 _ for 99 days Aug, Active PROCEDURES No Information RESULTS No Results [...] features; repeat 10 years 2012 Hospitalization History [facility]- schizoaffective d/o 01/19 Hospitalization History [facility] [place] [facility] [place] Goals Section No Information Health Concerns [...] 11:00:00 AM, [address] [facility] [facility], , [place], [address], Provider Name:Naomie Garcia, 2020-03 01:00:00 PM, [address] [facility], , [place], [address], Insurance Providers Payer Name Payer Address Payer Phone Insured Name Patient Relati onship to Insured Coverage Start Date Coverage End Date MEDICARE Part A and B [address] [facility] [id number] LUZMARIA FUNES MEDICAID [employer] [address] [facility] [id number] LUZMARIA FUNES
--- OUTSIDE RECORDS SUMMARY | 2021-01-02 16:32 | CCD ---
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 Active confirmed 937353 008 Problem Vitamin D deficiency E55.9 Active confirmed 80919505 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 confirmed 371 110401 Problem Other amnesia R41.3 Active confirmed 225451 00 Problem Myalgia M79.1 Active confirmed 31194648 Problem Spinal stenosis of lumbosacral region M48.07 Ac tive confirmed 27650699 Problem Other chronic pain G89.29 Active confirmed 8 2060429 Problem Low back pain M54.5 Active confirmed 277655 009 Problem Lumbago due to displacement of intervertebral disc M51.26 Active confirmed 27384398 Problem Essential hypertension I10 Active confirmed 43266698 Problem 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 Active confirmed 62128492573329 Problem BMI 40.0-44.9, adult Z68.41 Active confirmed 644570039 Problem Age-related osteoporosis without current pathological fracture M81.0 Active confirmed 12998593 Problem 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 Activ e confirmed 9723335036816008 Problem Other intervertebral disc degeneration, lumbar region M51.36 Active confirmed 61137194 Problem Paresthesia of both feet R20.2 Active confirmed 000591006 Problem Hypothyroidism, unspecified E03.9 Active confirmed 69282859 Problem Impaired fasting glucose R73.01 Active confirmed 510921833 Problem Spondylolisthesis at L5-S1 level M43.17 Active confirmed 326694789 Problem Spondylosis of lumbosacral region without myelop athy or radiculopathy M47.817 Active confirmed 73912410 Problem Spondylosis of lumbar region without myelopathy or radiculopathy M47.816 Active confirmed 02767526 Problem Arthritis of shoulder region, right M19.011 Acti ve confirmed [id number] ALLERGIES No Known Allergies ENCOUNTERS from 1955 to 2020-10-08 Encounter Location Date Provider Diagnosis [place] [address] [facility] [phone] [place] [address] Oct, Dee Key IMMUNIZATIONS Vaccine Route Administration Date Status Influenza 18 yrs & older Flublok IM Intramuscular Jan 27, 2019 Administered Influenza 18 yrs & older Flublok IM Intramuscular Feb 16, 2018 Administered Influenza 6mo & up Fluzone IM Intramuscular Jan 04, 2017 Admi nistered Pneumococcal Adult 0.5mL Pneumovax 23 IM Intramuscular July 20 014 Administered TDAP 0.5mL (Boostrix) IM Intramuscular Dec 20, 2012 Administe red Influenza 6mo & up Fluzone Unknown Dec [...] Assigned At Unknown Audit Question Answer Notes Interpretation: Alcohol Education Total Score: 0 Sexual Hx: Question Answer Notes Had sex in the last 12 months (vaginal, oral, or anal)? No Have you ever had an STD? No Drug and Alcohol Question Answer Notes Interpretation: No problems reported Total Score: 0 Alcohol Screening: Question Answer Notes Did you [...] Notes Start Da te End Date Status Metoprolol Tartrate 25 mg TAKE ONE TABLET BY MOUTH @8A M and TAKE ONE TABLET @8PM Oral Twice a day for 30 Days Act merry Mirtazapine 15 MG TAKE 1/2 TABLET BY MOUTH AT BEDTIME Oral Daily for 30 days Active Lactulose 10 GM/15ML TAKE 15 MILLILITERS BY MOUTH TWO TO THREE TIMES DAILY FOR CONSTIPATION Oral for 21 Not-Aldo ing Lisinopril 20 MG 1 tablet Orally Once a day for 30 Days Active Stool Softener 100 MG 1 capsule as needed Orally Once a day Not-Taking Cogentin 0.5 MG 1 tab(s) 2 times a day Not-Taking risperiDONE 1 MG 1 tablet Orally 1mg am 2mg hs Active Benefiber - Orally Not-Taking Oyster Shell Calcium 500 MG TAKE ONE TABLET BY MOUTH @8AM for 28 Active Diclofenac Sodium 50 MG 1 tablet Orally Twice a day for 30 Days Jan, Active traZODone HCl 50 MG 1/2 (25mg) tablet at bedtime as needed O rally Once a day HS Active Donepezil HCl 10 MG TAKE ONE TABLET BY MOUTH @8PM Oral for 28 duplica te Not-Taking Invega Trinza 819 MG/2.625ML INJECT ONE SYRINGE INTRAM USCULARLY FOR A SINGLE DOSE Intramuscular Not-Taking Venlafaxine HCl ER 150 MG TAKE TWO CAPSULES BY MOUTH @8AM Oral or 28 duplicate Not-Taking Levothyroxine Sodium 50 MCG 1 tablet in the morning on an empty stomach Orally Once a day for 30 Days Active clonazePAM 1 MG (Schedule IV Drug) TAKE ONE TABLET BY MOUTH TWICE DAILY AND EVERY FOUR HOURS NEEDED FOR ANXIETY MAX DAILY DOSE THREE TABLETS Oral for 30 Active risperiDONE 1 MG TAKE ONE TABLET BY MOUTH @8AM Oral for 28 duplicate Not-Taking risperiDONE 2 MG 1 tablet Orally Once a day for 30 day(s) Active Multivitamin Adults - Orally daily Not-Taking Rozerem 8 MG TAKE ONE TABLET BY MOUTH @8PM Oral for 28 duplicate Not-Taking Calcium 500 MG 1 tablet with meals Orally Daily for 28 Active KlonoPIN 1 MG 1 tablet Orally BID No t-Taking Vitamin D 2000 UNIT 1 capsule Orally Once a day for 28 Not-Taking Benztropine Mesylate 0.5 MG TAKE ONE TABLET BY MOUTH @ 8AM and TAKE ONE TABLET @8PM Oral for 28 Active Biofreeze Roll-On 4 % 1 application to affected ar ea as needed Externally Once a day Not-Taking Effexor XR 150 MG 225mg-1 capsule with food Orally Once a day Active Vitamin D3 50 MCG (1999) TAKE ONE CAPSULE BY MOUTH @8AM for 28 Active Rozerem 8 mg 1 tablet at bedtime as needed Not-Taking Multivitamin Adults - as directed Orally Active Ramelteon 8 MG 1 tablet at bedtime as needed Orally Once a day Not-Taking Donepezil HCl 10 MG 1 tablet at bedtime Orally Once a day Active Paliperidone Palmitate 234 MG/1.5ML 1.5 ml Intramuscular per pt Q3mon ths Active Hand Held Shower [place] - as directed Dx: M46.90, M51.36, M43.17 _ for 99 days Aug, Active Bath/Shower Seat - as directed Dx: M46.90, M51.36, M43.17 _ for 99 days Aug, Active Wall Grab Bar - as directed Dx: M46.90, M51.36, M43.17 _ for 99 days Aug, Active tiZANidine HCl 2 MG TAKE ONE TABLET BY MOUTH @12PM and TAKE ONE TAB LET @8PM Active PROCEDURES No Information RESULTS No Results [...] features; repeat 10 years 2012 Hospitalization History [facility]- schizoaffective d/o 01/19 Hospitalization History [facility] [place] Hospitalization History [facility] [place] Goals Section No Information Health Concerns No Information MEDICAL EQUIPMENT No Information MENTAL STATUS No Information FUNCTIONAL STATUS No Information ASSESSMENTS No Information PLAN OF TREATMENT Medication Medication Name Sig Start Date Stop Date Lisinopril 20 MG 1 tablet Orally Once a day for 30 Days tiZANidine HCl 2 MG TAKE ONE TABLET BY MOUTH @12PM and TAKE ONE TABLET @8PM Diclofenac Sodium 50 MG 1 tablet Orally Twice a day for 30 Days Jan, Metoprolol Tartrate 25 mg TAKE ONE TABLET BY MOUTH @8A M and TAKE ONE TABLET @8PM Oral Twice a day for 30 Days Mirtazapine 15 MG TAKE 1/2 TABLET BY MOUTH AT BEDTIME Oral Daily for 30 days Levothyroxine Sodium 50 MCG 1 tablet in the morning on an empty stomach Orally Once a day for 30 Days Next Appt Details Provider Name:Kyra Fitzgerald, 2020-12-03 01:0 0:00 PM, [address] [facility], , [place], [address], Provider Name:Evens Rowe, 2020-12-06 11:00:00 AM, [address] [facility] [address], , [place], [address], Insurance Providers Payer Name Payer Address Payer Phone Insured Name Patient Relati onship to Insured Coverage Start Date Coverage End Date JAMIENguyễn ADILSON [address] [address] [facility] [phone] [place] FUNES self MEDICAID [employer] [address] [facility] [id number] LU[place]MARIA FUNES self
--- OUTSIDE RECORDS SUMMARY | 2021-01-02 16:33 | CCD ---
Author Author [facility] Organization [facility] Address Unknown Phone Unavailable Care Team Providers Care Metal Or Wood Blocker Name Role Phone DRAZEK, I DANIELLE PA Unavailable Unavailable DRAZEK, I DANIELLE PA Unavailable Unavailable DRAZEK, I DANIELLE PA Unavailable Unavailable DRAZEK, I DANIELLE PA Unavailable Unavailable DRAZEK, I DANIELLE PA Unavailable Unavailable DRAZEK, I DANIELLE PA Unavailable Unavailable DRAZEK, I DANIELLE PA Unavailable Unavailable DRAZEK, I DANIELLE PA Unavailable Unavailable DRAZEK, I DANIELLE PA Unavailable Unavailable DRAZEK, I DANIELLE PA Unavailable Unavailable DRAZEK, I DANIELLE PA Unavailable Unavailable DRAZEK, I DANIELLE PA Unavailable Unavailable DRAZEK, I DANIELLE PA Unavailable Unavailable DRAZEK, I DANIELLE PA Unavailable Unavailable DRAZEK, I DANIELLE PA Unavailable Unavailable DRAZEK, I DANIELLE PA Unavailable Unavailable DRAZEK, I DANIELLE PA Unavailable Unavailable DRAZEK, I DANIELLE PA Unavailable Unavailable DRAZEK, I DANIELLE PA Unavailable Unavailable DRAZEK, I DANIELLE PA Unavailable Unavailable DRAZEK, I DANIELLE PA Unavailable Unavailable DRAZEK, I DANIELLE PA Unavailable Unavailable DRAZEK, I DANIELLE PA Unavailable Unavailable DRAZEK, I DANIELLE PA Unavailable Unavailable DRAZEK, I DANIELLE PA Unavailable Unavailable DRAZEK, I DANIELLE PA Unavailable Unavailable DRAZEK, I DANIELLE PA Unavailable Unavailable DRAZEK, I DANIELLE PA Unavailable Unavailable DRAZEK, I DANIELLE PA Unavailable Unavailable DRAZEK, I DANIELLE PA Unavailable Unavailable Re-disclosure Warning The records that you are about to access may contain information from federally-assisted alcohol or drug abuse programs. If such information is present, then the following federally mandated warning applies: This information has been disclosed to you from records protected by federal confidentiality rules (42 CFR part 2). The federal rules prohibit you from making any further disclosure of this information unless further disclosure is expressly permitted by the written consent of the person to whom it pertains or as otherwise permitted by 42 CFR part 2. A general authorization for the release of medical or other information is NOT sufficient for this purpose. The Federal rules restrict any use of the information to criminally investigate or prosecute any alcohol or drug abuse patient.The records that you are about to access may contain highly sensitive health information, the redisclosure of which is protected by Article 27-F of the [facility] Public Health law. If you continue you may have access to information: Regarding HIV / AIDS; Provided by facilities licensed or operated by the [facility] Office of Mental Health; or Provided by the [facility] Office for People With Developmental Disabilities. If such information is present, then the following [facility] mandated warning applies: This information has been disclosed to you from confidential records which are protected by state law. State law prohibits you from making any further disclosure of this information without the specific written consent of the person to whom it pertains, or as otherwise permitted by law. Any unauthorized further disclosure in violation of state law may result in a fine or fci sentence or both. A general authorization for the release of medical or other information is NOT sufficient authorization for further disc losure. Family History Family Member Name Family Member Gender Family Member Status Date o f Status Description Data Source(s) Unknown Unknown Problem MEDENT ([facility]) Unknown Female Problem MEDENT ([facility] Encounters Encounter Providers Location Date Indications Data Source(s ) Unknown [address] [facility] [address] 12/24/2020 12:00:00 AM EDT eCW1 ([facility]) Unknown [address] [facility] [address] 12/23/2020 12:00:00 AM EDT eCW1 ([facility]) Outpatient [address] [facility] [place] [address] 12/06/2020 12:00:00 AM EDT eCW1 ([facility]) Unknown [address] [facility] [place] [address] 11/26/2020 12:00:00 AM EDT eCW1 ([facility]) Unknown [address] [facility] [place] [address] 11/19/2020 12:00:00 AM EDT eCW1 ([facility]) Outpatient [address] [facility] [place] [address] 11/14/2020 12:00:00 AM EDT eCW1 ([facility]) Office Visit Attender: DANIELLE SHORT Physical Therapy 2020 11:00:00 AM EDT MEDENT ([facility]) Unknown [address] [facility] [place] [address] 10/08/2020 12:00:00 AM EDT eCW1 ([facility]) Unknown [address] [facility] [place] [address] 09/24/2020 12:00:00 AM EDT eCW1 ([facility]) Unknown [address] [facility] [place] [address] 09/24/2020 12:00:00 AM EDT eCW1 ([facility]) Unknown [address] [facility] [place] [address] 09/11/2020 12:00:00 AM EDT eCW1 ([facility]) Out[place] [address] [facility] [address] 09/03/2020 12:00:00 AM EDT eCW1 ([facility]) Unknown [address] [facility] [address] 09/03/2020 12:00:00 AM EDT eCW1 ([facility]) Unknown [address] [facility] [address] 08/29/2020 12:00:00 AM EDT eCW1 ([facility]) OFFICE OUTPATIENT VISIT 15 MINUTES Attender: DANIELLE SHORT Phys ical Therapy 08/28/2020 04:30:00 PM EDT MEDENT ([facility]) Unknown [address] [facility] [address] 08/20/2020 12:00:00 AM EDT eCW1 ([facility]) Office Visit, Est Pt., Level 4 PC [address] [place] [address] 08/12/2020 12:00:00 AM EDT eCW1 ([facility]) Unknown [address] [facility] [address] 07/25/2020 12:00:00 AM EDT eCW1 ([facility]) Unknown [address] [facility] [address] 07/09/2020 12:00:00 AM EDT eCW1 ([facility]) Unknown [address] [facility] [address] 06/24/2020 12:00:00 AM EDT eCW1 ([facility]) Unknown [address] [facility] [address] 06/13/2020 12:00:00 AM EDT eCW1 ([facility]) Unknown [address] [facility] [address] 06/03/2020 12:00:00 AM EDT eCW1 ([facility]) Office Visit Attender: DANIELLE SHORT Physical Therapy 2020 01:20:00 PM EDT MEDENT ([facility]) Outpatient Attender: DANIELLE SHORT Physical Therapy 04/26/2020 0 2:30:00 PM EST MEDENT ([facility]) Unknown [address] [facility] [address] 04/23/2020 12:00:00 AM EST eCW1 ([facility]) Outpatient [address] [facility] [place] [address] 04/19/2020 12:00:00 AM EST eCW1 ([facility]) Unknown [address] [facility] [address] 04/18/2020 12:00:00 AM EST eCW1 ([facility]) Outpatient [address] [facility] [address] 03/14/2020 12:00:00 AM EST eCW1 ([facility]) Outpatient [address] [facility] [address] 03/06/2020 12:00:00 AM EST eCW1 ([facility]) OFFICE OUTPATIENT VISIT 15 MINUTES Attender: DANIELLE SHORT Phys ical Therapy 02/22/2020 08:00:00 AM EST MEDENT ([facility]) Unknown [address] [facility] [address] 02/22/2020 12:00:00 AM EST eCW1 ([facility]) Outpatient [address] [facility] [place] [address] 01/17/2020 12:00:00 AM EST eCW1 ([facility]) Unknown [address] [facility] [address] 01/17/2020 12:00:00 AM EST eCW1 ([facility]) Unknown [address] [facility] [place] [address] 01/11/2020 12:00:00 AM EST [facility]CW1 [facility] Out[place] [address] [facility] [address] 01/04/2020 12:00:00 AM EDT eCW1 ([facility]) Unknown [address] [facility] [address] 01/04/2020 12:00:00 AM EDT eCW1 ([facility]) Unknown [address] [facility] [address] 01/03/2020 12:00:00 AM EDT eCW1 ([facility]) Unknown [address] [facility] [address] 01/02/2020 12:00:00 AM EDT eCW1 ([facility]) Out[place] [address] [facility] [address] 12/25/2019 12:00:00 AM EDT eCW1 ([facility]) Out[place] [address] [facility] [address] 12/21/2019 12:00:00 AM EDT eCW1 ([facility]) Office Visit Attender: DANIELLE SHORT Physical Therapy 2019 02:15:00 PM EDT MEDENT ([facility]) Office Visit Attender: DANIELLE SHORT Physical Therapy 2019 12:20:00 PM EDT MEDENT ([facility]) [facility] [address] [place] [address] 11/27/2019 12:00:00 AM EDT eCW1 ([facility]) Office Visit Attender: DANIELLE SHORT Physical Therapy 2019 10:30:00 AM EDT MEDENT ([facility]) Immunizations Vaccine Date Status Description Data Source(s) COVID-19 VACCINE Moderna 06/18/2020 12:00:00 AM EDT completed [facility] Vaccine Series Complete: YESThis Data wa s Submitted to [facility] COVID-19 VACCINE, MRNA-1273, LNP-S (MODERNA)/PF 06/18/2020 1 2:00:00 AM EDT completed [facility] COVID-19 VACCINE Moderna 05/25/2020 12:00:00 AM EDT completed [facility] Vaccine Series Complete: NOThis Data was Submitted to [facility] Via [employer]. COVID-19 VACCINE, MRNA-1273, LNP-S (MODERNA)/PF 05/25/2020 1 2:00:00 AM EDT completed [facility] influenza, recombinant, quadrIvalent,injectable, prese rvative free 12/21/2019 04:01:00 PM EDT completed eCW1 ([facility]) influenza, recombinant, quadrIvalent,injectable, prese rvative free 12/21/2019 04:01:00 PM EDT completed eCW1 ([facility]) influenza, recombinant, quadrIvalent,injectable, prese rvative free 12/21/2019 04:01:00 PM EDT completed eCW1 ([facility]) influenza, recombinant, quadrIvalent,injectable, prese rvative free 12/21/2019 04:01:00 PM EDT completed eCW1 ([facility]) influenza, recombinant, quadrIvalent,injectable, prese rvative free 12/21/2019 04:01:00 PM EDT completed eCW1 ([facility]) influenza, recombinant, quadrIvalent,injectable, prese rvative free 12/21/2019 04:01:00 PM EDT completed eCW1 ([facility]) influenza, recombinant, quadrIvalent,injectable, prese rvative free 12/21/2019 04:01:00 PM EDT completed eCW1 ([facility]) influenza, recombinant, quadrIvalent,injectable, prese rvative free 12/21/2019 04:01:00 PM EDT completed eCW1 ([facility]) influenza, recombinant, quadrIvalent,injectable, prese rvative free 12/21/2019 04:01:00 PM EDT completed eCW1 ([facility]) influenza, recombinant, quadrIvalent,injectable, prese rvative free 12/21/2019 04:01:00 PM EDT completed eCW1 ([facility]) influenza, recombinant, quadrIvalent,injectable, prese rvative free 12/21/2019 04:01:00 PM EDT completed eCW1 ([facility]) influenza, recombinant, quadrIvalent,injectable, prese rvative free 12/21/2019 04:01:00 PM EDT completed eCW1 ([facility]) influenza, recombinant, quadrIvalent,injectable, prese rvative free 12/21/2019 04:01:00 PM EDT completed eCW1 ([facility]) influenza, recombinant, quadrIvalent,injectable, prese rvative free 12/21/2019 04:01:00 PM EDT completed eCW1 ([facility]) influenza, recombinant, quadrIvalent,injectable, prese rvative free 12/21/2019 04:01:00 PM EDT completed eCW1 ([facility]) influenza, recombinant, quadrIvalent,injectable, prese rvative free 12/21/2019 04:01:00 PM EDT completed eCW1 ([facility]) influenza, recombinant, quadrIvalent,injectable, prese rvative free 12/21/2019 04:01:00 PM EDT completed eCW1 ([facility]) influenza, recombinant, quadrIvalent,injectable, prese rvative free 12/21/2019 04:01:00 PM EDT completed eCW1 ([facility]) influenza, recombinant, quadrIvalent,injectable, prese rvative free 12/21/2019 04:01:00 PM EDT completed eCW1 ([facility]) influenza, recombinant, quadrIvalent,injectable, prese rvative free 12/21/2019 04:01:00 PM EDT completed eCW1 ([facility]) influenza, recombinant, quadrIvalent,injectable, prese rvative free 12/21/2019 04:01:00 PM EDT completed eCW1 ([facility]) influenza, recombinant, quadrIvalent,injectable, prese rvative free 12/21/2019 04:01:00 PM EDT completed eCW1 ([facility]) influenza, recombinant, quadrIvalent,injectable, prese rvative free 12/21/2019 04:01:00 PM EDT completed eCW1 ([facility]) influenza, recombinant, quadrIvalent,injectable, prese rvative free 12/21/2019 04:01:00 PM EDT completed eCW1 ([facility]) influenza, recombinant, quadrIvalent,injectable, prese rvative free 12/21/2019 04:01:00 PM EDT completed eCW1 ([facility]) influenza, recombinant, quadrIvalent,injectable, prese rvative free 12/21/2019 04:01:00 PM EDT completed eCW1 ([facility]) influenza, recombinant, quadrIvalent,injectable, prese rvative free 12/21/2019 04:01:00 PM EDT completed eCW1 ([facility]) influenza, recombinant, quadrIvalent,injectable, prese rvative free 12/21/2019 04:01:00 PM EDT completed eCW1 ([facility]) influenza, recombinant, quadrIvalent,injectable, prese rvative free 12/21/2019 04:01:00 PM EDT completed eCW1 ([facility]) influenza, recombinant, quadrIvalent,injectable, prese rvative free 12/21/2019 04:01:00 PM EDT completed eCW1 ([facility]) influenza, recombinant, quadrIvalent,injectable, prese rvative free 12/21/2019 04:01:00 PM EDT completed eCW1 ([facility]) influenza, recombinant, quadrIvalent,injectable, prese rvative free 12/21/2019 04:01:00 PM EDT completed eCW1 ([facility]) influenza, recombinant, quadrIvalent,injectable, prese rvative free 12/21/2019 04:01:00 PM EDT completed eCW1 ([facility]) influenza, recombinant, quadrIvalent,injectable, prese rvative free 12/21/2019 04:01:00 PM EDT completed eCW1 ([facility]) influenza, recombinant, quadrIvalent,injectable, prese rvative free 12/21/2019 04:01:00 PM EDT completed eCW1 ([facility]) influenza, recombinant, quadrIvalent,injectable, prese rvative free 12/21/2019 04:01:00 PM EDT completed eCW1 ([facility]) Medications Medication Brand Name Start Date Product Form Dose Route Admi nistrative Instructions Pharmacy Instructions Status Indications Reaction Description Data Source(s) 819 mg/2.625 mL 12/14/2020 12:00:00 AM EDT syringe 2 INJECT 1 SYRINGE INTRAMUSCULARLY FOR A SINGLE DOSE ONCE EVERY 3 MONTHS INJECT 1 SYRINGE INTRAMUSCULARLY FOR A SINGLE DOSE ONCE EVERY 3 MONTHS SOLD: 12/20/2020 [facility] Bath/Shower Seat - Bath/Shower Seat - 08/30/2020 12:00:00 AM EDT active Bath/Shower Seat - eCW1 ([facility]) Hand Held Shower Partridge - Hand Held Shower Partridge - 08/30/2020 12:00: 00 AM EDT active Hand Held Shower Partridge - eCW1 ([facility]) Bath/Shower Seat - Bath/Shower Seat - 08/30/2020 12:00:00 AM EDT active Bath/Shower Seat - eCW1 ([facility]) Wall Grab Bar - Wall Grab Bar - 08/30/2020 12:00:00 AM EDT active Wall Grab Bar - eCW1 ([facility]) Hand Held Shower Partridge - Hand Held Shower Partridge - 08/30/2020 12:00: 00 AM EDT active Hand Held Shower Partridge - eCW1 ([facility]) Hand Held Shower Partridge - Hand Held Shower Partridge - 08/30/2020 12:00: 00 AM EDT active Hand Held Shower Partridge - eCW1 ([facility]) Hand Held Shower Partridge - Hand Held Shower Partridge - 08/30/2020 12:00: 00 AM EDT active Hand Held Shower Partridge - eCW1 ([facility]) Wall Grab Bar - Wall Grab Bar - 08/30/2020 12:00:00 AM EDT active Wall Grab Bar - eCW1 ([facility]) Wall Grab Bar - Wall Grab Bar - 08/30/2020 12:00:00 AM EDT active Wall Grab Bar - eCW1 ([facility]) Hand Held Shower Partridge - Hand Held Shower Partridge - 08/30/2020 12:00: 00 AM EDT active Hand Held Shower [place]ridge - eCW1 ([facility]) Bath/Shower Seat - Bath/Shower Seat - 08/30/2020 12:00:00 AM EDT active Bath/Shower Seat - eCW1 ([facility]) Bath/Shower Seat - Bath/Shower Seat - 08/30/2020 12:00:00 AM EDT active Bath/Shower Seat - eCW1 ([facility]) Hand Held Shower Partridge - Hand Held Shower Partridge - 08/30/2020 12:00: 00 AM EDT active Hand Held Shower Partridge - eCW1 ([facility]) Wall Grab Bar - Wall Grab Bar - 08/30/2020 12:00:00 AM EDT active Wall Grab Bar - eCW1 ([facility]) Bath/Shower Seat - Bath/Shower Seat - 08/30/2020 12:00:00 AM EDT active Bath/Shower Seat - eCW1 ([facility]) Bath/Shower Seat - Bath/Shower Seat - 08/30/2020 12:00:00 AM EDT active Bath/Shower Seat - eCW1 ([facility]) Hand Held Shower Partridge - Hand Held Shower Partridge - 08/30/2020 12:00: 00 AM EDT active Hand Held Shower Partridge - eCW1 ([facility]) Hand Held Shower Partridge - Hand Held Shower Partridge - 08/30/2020 12:00: 00 AM EDT active Hand Held Shower Partridge - eCW1 ([facility]) Wall Grab Bar - Wall Grab Bar - 08/30/2020 12:00:00 AM EDT active Wall Grab Bar - eCW1 ([facility]) Wall Grab Bar - Wall Grab Bar - 08/30/2020 12:00:00 AM EDT active Wall Grab Bar - eCW1 ([facility]) Hand Held Shower Partridge - Hand Held Shower Partridge - 08/30/2020 12:00: 00 AM EDT active Hand Held Shower Partridge - eCW1 ([facility]) Hand Held Shower Partridge - Hand Held Shower Partridge - 08/30/2020 12:00: 00 AM EDT active Hand Held Shower Partridge - eCW1 ([facility]) Wall Grab Bar - Wall Grab Bar - 08/30/2020 12:00:00 AM EDT active Wall Grab Bar - eCW1 ([facility]) Bath/Shower Seat - Bath/Shower Seat - 08/30/2020 12:00:00 AM EDT active Bath/Shower Seat - eCW1 ([facility]) Wall Grab Bar - Wall Grab Bar - 08/30/2020 12:00:00 AM EDT active Wall Grab Bar - eCW1 ([facility]) Wall Grab Bar - Wall Grab Bar - 08/30/2020 12:00:00 AM EDT active Wall Grab Bar - eCW1 ([facility]) Bath/Shower Seat - Bath/Shower Seat - 08/30/2020 12:00:00 AM EDT active Bath/Shower Seat - eCW1 ([facility]) Wall Grab Bar - Wall Grab Bar - 08/30/2020 12:00:00 AM EDT active Wall Grab Bar - eCW1 ([facility]) Bath/Shower Seat - Bath/Shower Seat - 08/30/2020 12:00:00 AM EDT active Bath/Shower Seat - eCW1 ([facility]) Wall Grab Bar - Wall Grab Bar - 08/30/2020 12:00:00 AM EDT active Wall Grab Bar - eCW1 ([facility]) Wall Grab Bar - Wall Grab Bar - 08/30/2020 12:00:00 AM EDT active Wall Grab Bar - eCW1 ([facility]) Wall Grab Bar - Wall Grab Bar - 08/30/2020 12:00:00 AM EDT active Wall Grab Bar - eCW1 ([facility]) Hand Held Shower Partridge - Hand Held Shower Partridge - 08/30/2020 12:00: 00 AM EDT active Hand Held Shower Partridge - eCW1 ([facility]) Bath/Shower Seat - Bath/Shower Seat - 08/30/2020 12:00:00 AM EDT active Bath/Shower Seat - eCW1 ([facility]) Hand Held Shower Partridge - Hand Held Shower Partridge - 08/30/2020 12:00: 00 AM EDT active Hand Held Shower Partridge - eCW1 ([facility]) Bath/Shower Seat - Bath/Shower Seat - 08/30/2020 12:00:00 AM EDT active Bath/Shower Seat - eCW1 ([facility]) Wall Grab Bar - Wall Grab Bar - 08/30/2020 12:00:00 AM EDT active Wall Grab Bar - eCW1 ([facility]) Bath/Shower Seat - Bath/Shower Seat - 08/30/2020 12:00:00 AM EDT active Bath/Shower Seat - eCW1 ([facility]) Hand Held Shower Partridge - Hand Held Shower Partridge - 08/30/2020 12:00: 00 AM EDT active Hand Held Shower [place]ridge - eCW1 ([facility]) Hand Held Shower Partridge - Hand Held Shower Partridge - 08/30/2020 12:00: 00 AM EDT active Hand Held Shower [place]ridge - eCW1 ([facility]) Bath/Shower Seat - Bath/Shower Seat - 08/30/2020 12:00:00 AM EDT active Bath/Shower Seat - eCW1 ([facility]) Bath/Shower Seat - Bath/Shower Seat - 08/30/2020 12:00:00 AM EDT active Bath/Shower Seat - eCW1 ([facility]) Diclofenac Sodium 50 MG Delayed Release Oral Tablet Diclofen ac Sodium 50 MG 01/17/2020 12:00:00 AM EST 1.0 {tablet} active Diclofenac Sodium 50 MG eCW1 ([facility]) Diclofenac Sodium 50 MG Delayed Release Oral Tablet Diclofen ac Sodium 50 MG 01/17/2020 12:00:00 AM EST 1.0 {tablet} active Diclofenac Sodium 50 MG eCW1 ([facility]) Diclofenac Sodium 50 MG Delayed Release Oral Tablet Diclofen ac Sodium 50 MG 01/17/2020 12:00:00 AM EST 1.0 {tablet} active Diclofenac Sodium 50 MG eCW1 ([facility]) Diclofenac Sodium 50 MG Delayed Release Oral Tablet Diclofen ac Sodium 50 MG 01/17/2020 12:00:00 AM EST 1.0 {tablet} active Diclofenac Sodium 50 MG eCW1 ([facility]) Diclofenac Sodium 50 MG Delayed Release Oral Tablet Diclofen ac Sodium 50 MG 01/17/2020 12:00:00 AM EST 1.0 {tablet} active Diclofenac Sodium 50 MG eCW1 ([facility]) Diclofenac Sodium 50 MG Delayed Release Oral Tablet Diclofen ac Sodium 50 MG 01/17/2020 12:00:00 AM EST 1.0 {tablet} active Diclofenac Sodium 50 MG eCW1 ([facility]) Diclofenac Sodium 50 MG Delayed Release Oral Tablet Diclofen ac Sodium 50 MG 01/17/2020 12:00:00 AM EST 1.0 {tablet} active Diclofenac Sodium 50 MG eCW1 ([facility]) Diclofenac Sodium 50 MG Delayed Release Oral Tablet Diclofen ac Sodium 50 MG 01/17/2020 12:00:00 AM EST 1.0 {tablet} active Diclofenac Sodium 50 MG eCW1 ([facility]) Diclofenac Sodium 50 MG Delayed Release Oral Tablet Diclofen ac Sodium 50 MG 01/17/2020 12:00:00 AM EST 1.0 {tablet} active Diclofenac Sodium 50 MG eCW1 ([facility]) Diclofenac Sodium 50 MG Delayed Release Oral Tablet Diclofen ac Sodium 50 MG 01/17/2020 12:00:00 AM EST 1.0 {tablet} active Diclofenac Sodium 50 MG eCW1 ([facility]) Diclofenac Sodium 50 MG Delayed Release Oral Tablet Diclofen ac Sodium 50 MG 01/17/2020 12:00:00 AM EST 1.0 {tablet} active Diclofenac Sodium 50 MG eCW1 ([facility]) Diclofenac Sodium 50 MG Delayed Release Oral Tablet Diclofen ac Sodium 50 MG 01/17/2020 12:00:00 AM EST 1.0 {tablet} active Diclofenac Sodium 50 MG eCW1 ([facility]) Diclofenac Sodium 50 MG Delayed Release Oral Tablet Diclofen ac Sodium 50 MG 01/17/2020 12:00:00 AM EST 1.0 {tablet} active Diclofenac Sodium 50 MG eCW1 ([facility]) Diclofenac Sodium 50 MG Delayed Release Oral Tablet Diclofen ac Sodium 50 MG 01/17/2020 12:00:00 AM EST 1.0 {tablet} active Diclofenac Sodium 50 MG eCW1 ([facility]) Diclofenac Sodium 50 MG Delayed Release Oral Tablet Diclofen ac Sodium 50 MG 01/17/2020 12:00:00 AM EST 1.0 {tablet} active Diclofenac Sodium 50 MG eCW1 ([facility]) Diclofenac Sodium 50 MG Delayed Release Oral Tablet Diclofen ac Sodium 50 MG 01/17/2020 12:00:00 AM EST 1.0 {tablet} active Diclofenac Sodium 50 MG eCW1 ([facility]) Diclofenac Sodium 50 MG Delayed Release Oral Tablet Diclofen ac Sodium 50 MG 01/17/2020 12:00:00 AM EST 1.0 {tablet} active Diclofenac Sodium 50 MG eCW1 ([facility]) Diclofenac Sodium 50 MG Delayed Release Oral Tablet Diclofen ac Sodium 50 MG 01/17/2020 12:00:00 AM EST 1.0 {tablet} active Diclofenac Sodium 50 MG eCW1 ([facility]) Diclofenac Sodium 50 MG Delayed Release Oral Tablet Diclofen ac Sodium 50 MG 01/17/2020 12:00:00 AM EST 1.0 {tablet} active Diclofenac Sodium 50 MG eCW1 ([facility]) Diclofenac Sodium 50 MG Delayed Release Oral Tablet Diclofen ac Sodium 50 MG 01/17/2020 12:00:00 AM EST 1.0 {tablet} active Diclofenac Sodium 50 MG eCW1 ([facility]) Diclofenac Sodium 50 MG Delayed Release Oral Tablet Diclofen ac Sodium 50 MG 01/17/2020 12:00:00 AM EST 1.0 {tablet} active Diclofenac Sodium 50 MG eCW1 ([facility]) Diclofenac Sodium 50 MG Delayed Release Oral Tablet Diclofen ac Sodium 50 MG 01/17/2020 12:00:00 AM EST 1.0 {tablet} active Diclofenac Sodium 50 MG eCW1 ([facility]) Diclofenac Sodium 50 MG Delayed Release Oral Tablet Diclofen ac Sodium 50 MG 01/17/2020 12:00:00 AM EST 1.0 {tablet} active Diclofenac Sodium 50 MG eCW1 ([facility]) Diclofenac Sodium 50 MG Delayed Release Oral Tablet Diclofen ac Sodium 50 MG 01/17/2020 12:00:00 AM EST 1.0 {tablet} active Diclofenac Sodium 50 MG eCW1 ([facility]) Diclofenac Sodium 50 MG Delayed Release Oral Tablet Diclofen ac Sodium 50 MG 01/17/2020 12:00:00 AM EST 1.0 {tablet} active Diclofenac Sodium 50 MG eCW1 ([facility]) Diclofenac Sodium 50 MG Delayed Release Oral Tablet Diclofen ac Sodium 50 MG 01/17/2020 12:00:00 AM EST 1.0 {tablet} active Diclofenac Sodium 50 MG eCW1 ([facility]) Insurance Providers Payer name Policy type / Coverage type Policy ID Covered libertarian ID Covered libertarian's relationship to paige Policy Paige Plan Information MEDICARE [id number] SP [id number] A [id number] A MEDICARE [id number] SP [id number] MEDICAID [id number] SP [id number] HUMANA MEDICARE ADVANTAGE G [id number] Self [id number] MEDICAID M [id number] Self [id number] [place]ED[place] [id number] SP [id number] WELLCARE [id number] SP [id number] HUMANA GOLD O [id number] S [id number] MEDICAID M [id number] S [id number] MEDICARE C [id number] S [id number] MEDICAID [id number] SP [id number] ANSI-Medicaid [id number] ANSI-Medicare Part B [id number] ANSI-Medicare Part B [id number] ANSI-Medicaid [id number] ANSI-Medicaid [id number] ANSI-Medicare Part B [id number] ANSI-Medicare Part B [id number] ANSI-Medicaid [id number] ANSI-Medicaid [id number] ANSI-Medicare Part B [id number] ANSI-Medicare Part B [id number] ANSI-Medicaid [id number] ANSI-Medicare Part B [id number] ANSI-Medicaid [id number] ANSI-Medicaid [id number] ANSI-Medicare Part B [id number] ANSI-Medicaid [id number] ANSI-Medicare Part B [id number] ANSI-Medicaid [id number] ANSI-Medicare Part B [id number] ANSI-Medicaid [id number] ANSI-Medicare Part B [id number] ANSI-Medicaid [id number] ANSI-Medicare Part B [id number] ANSI-Medicaid [id number] ANSI-Medicare Part B [id number] ANSI-Medicaid [id number] ANSI-Medicare Part B [id number] ANSI-Medicaid [id number] ANSI-Medicare Part B [id number] ANSI-Medicaid [id number] ANSI-Medicare Part B [id number] ANSI-Medicare Part B [id number] ANSI-Medicaid [id number] ANSI-Medicare Part B [id number] ANS-Medicaid [id number] MEDICARE [id number] A Medicaid [facility] Part B [id number] Self [id number] Medicare [facility] Medicare Primary [id number] Self [id number] ANSI-Medicare Part B [id number] ANSI-Medicaid [id number] ANSI-Medicare Part B [id number] ANSI-Medicaid [id number] ANSI-Medicaid [id number] ANSI-Medicare Part B [id number] ANSI-Medicare Part B [id number] ANSI-Medicaid [id number] ANSI-Medicaid [id number] ANSI-Medicare Part B [id number] ANSI-Medicaid [id number] ANSI-Medicare Part B [id number] ANSI-Medicare Part B [id number] ANSI-Medicaid [id number] MEDICARE C [id number] S [id number] A Medicaid Medicaid [id number] S elf [id number] Medicare Medicare Primary [id number] Self [id number] MEDICAID [id number] SP [id number] Medicaid Medicaid [id number] Self Medicare Medicare Primary [id number] Self [employer] MEDICARE [id number] SP [id number] NDS MEDICAID [id number] SP [id number] HUMANA GOLD [id number] SP [id number] MEDICARE [id number] SP [id number] MEDICARE [id number] SP [id number] HUMANA GOLD [id number] SP [id number] Problems, Conditions, and Diagnoses Code Display Name Description Problem Type Effective Dates Data Source(s) R20.2 [id number] Paresthesia of both feet Problem 08/12/2020 12:00:00 AM EDT eCW1 ([facility]) Surgeries/Procedures Procedure Description Date Indications Data Source(s) PHYSICIAN TELEPHONE EVALUATION 5-10 MIN 11/05/2020 12: 00:00 AM EDT [facility] ([facility]) OFFICE OUTPATIENT VISIT 15 MINUTES 11/05/2020 12:00:00 AM EDT [facility] ([facility]) OFFICE OUTPATIENT VISIT 15 MINUTES 08/28/2020 12:00:00 AM EDT [facility] ([facility]) PHYSICIAN TELEPHONE EVALUATION 5-10 MIN 05/20/2020 12: 00:00 AM EDT [facility]ENT ([facility]) RADEX SHOULDER COMPLETE MINIMUM 2 VIEWS 04/26/2020 12: 00:00 AM EST MEDENT ([facility]) OFFICE OUTPATIENT VISIT 25 MINUTES 04/26/2020 12:00:00 AM EST [facility]ENT ([facility]) Physical Therapy Eval - Low Complexity 03/21/2020 12:0 0:00 AM EST MEDENT ([facility]) RADEX SHOULDER COMPLETE MINIMUM 2 VIEWS 02/22/2020 12: 00:00 AM EST MEDENT ([facility]) Immunization: Flublok Quadrivalent (18 years & older) 0.5mL IM (Influenza) 12/21/2019 12:00:00 AM EDT eCW1 ([facility]) RADEX SHOULDER COMPLETE MINIMUM 2 VIEWS 12/13/2019 12: 00:00 AM EDT MEDENT ([facility]) Results ID Date Data Source [id number] [id number] FOL 08/14/2020 12:00:00 AM EDT eCW1 ([facility]) Name Value Range Interpretation Code Description Data Sparkle rce(s) Supporting Document(s) 1092 VITAMIN B12 LEVEL eCW1 ([facility]) 23.9 FOLATE eCW1 ([facility]) ID Date Data Source [id number] 07/19/2020 08:45:00 PM EDT [facility] Name Value Range Interpretation Code Description Data Sparkle rce(s) Supporting Document(s) SARS-CoV-2 (COVID 19) NEGATIVE - SARS-CoV-2 (COVID19) [facility] This lab was ordered by [facility] a nd reported by [facility]. ID Date Data Source [id number] 07/02/2020 04:50:00 AM EDT [facility] Name Value Range Interpretation Code Description Data Sparkle rce(s) Supporting Document(s) SARS coronavirus 2 RNA [Presence] in Res piratory specimen by MICHELLE with probe detection NEGATIVE [facility] This lab was ordered by [facility] a nd reported by [facility]. ID Date Data Source [id number] 06/05/2020 03:47:00 PM EDT [facility] Name Value Range Interpretation Code Description Data Sparkle rce(s) Supporting Document(s) SARS-CoV-2 (COVID 19) NEGATIVE - SARS-CoV-2 (COVID19) [facility] This lab was ordered by [facility] a nd reported by [facility]. ID Date Data Source [id number] 05/31/2020 03:07:00 PM EDT [facility] Name Value Range Interpretation Code Description Data Sparkle rce(s) Supporting Document(s) SARS coronavirus 2 RNA [Presence] in Res piratory specimen by MICHELLE with probe detection NEGATIVE [facility] This lab was ordered by [facility] a nd reported by [facility]. ID Date Data Source LIPID PANEL (CARDIAC RISK) 12/22/2019 11:32:11 AM EDT eCW1 ( [facility]) Name Value Range Interpretation Code Description Data Sparkle rce(s) Supporting Document(s) Cholesterol [Moles/volume] in Serum or Plasma 168 CHOLESTEROL LEVEL eCW1 ([facility]) Cholesterol in HDL [Moles/volume] in Serum or Plasma 90 HDL CHOLESTEROL eCW1 ([facility]) Triglyceride [Mass/volume] in Serum or Plasma by calculation 76 TRIGLYCERIDES LEVEL eCW1 ([facility]) 78 NON-HDL-C eCW1 ([facility]) 1.866 CHOLESTEROL RISK RATIO eCW1 ([facility]) Cholesterol in LDL [Mass/volume] in Serum or Plasma by calculation 63 LDL CHOLESTEROL eCW1 ([facility]) ID Date Data Source VITAMIN D 25-HYDROXY 12/22/2019 11:32:11 AM EDT eCW1 ([facility]) Name Value Range Interpretation Code Description Data Sparkle rce(s) Supporting Document(s) 49.6 TOTAL 25(OH) VITAMIN D eCW1 ([facility]) ID Date Data Source [id number] 12/22/2019 11:32:11 AM EDT eCW1 ([facility]) Name Value Range Interpretation Code Description Data Sparkle rce(s) Supporting Document(s) Hemoglobin A1c/Hemoglobin.total in Blood 5.4 eCW1 ([facility]) ID Date Data Source FREE T4 & TSH PANEL 12/22/2019 11:32:11 AM EDT eCW1 ([facility]) Name Value Range Interpretation Code Description Data Sparkle rce(s) Supporting Document(s) 0.91 FREE T4 eCW1 ([facility]) 3.520 THYROID STIMULATING HORMONE eC W1 ([facility]) ID Date Data Source Comprehensive Metabolic Profile (CMP) 12/22/2019 11:32:10 AM EDT eCW1 ([facility]) Name Value Range Interpretation Code Description Data Sparkle rce(s) Supporting Document(s) > 60.0 GLOMERULAR FILTRATION RATE eCW 1 ([facility]) 10 BLOOD UREA NITROGEN eCW1 (On license of [facility]) 89 GLUCOSE, FASTING eCW1 ([facility]) 0.72 CREATININE FOR GFR eCW1 ([facility]) 27 CARBON DIOXIDE LEVEL eCW1 ([facility]) 4.5 POTASSIUM SERUM eCW1 ([facility]) 94 CHLORIDE LEVEL eCW1 ([facility]) 127 SODIUM LEVEL eCW1 ([facility]) 8.8 CALCIUM LEVEL eCW1 ([facility]) 26 ALT/SGPT eCW1 ([facility]) 65 ALKALINE PHOSPHATASE eCW1 ([facility]) 18 AST/SGOT eCW1 ([facility]) 3.7 ALBUMIN eCW1 ([facility]) 6.2 TOTAL PROTEIN eCW1 ([facility]) 0.2 BILIRUBIN,TOTAL eCW1 ([facility]) 1.5 ALBUMIN/GLOBULIN RATIO eCW1 ([facility]) Procedure Social History Code Duration Value Status Description Data Source(s ) Smoking 12/06/2020 12:00:00 AM EDT Never Smoker completed Never S moker eCW1 ([facility]) Smoking 12/06/2020 12:00:00 AM EDT Never Smoker completed Never S moker eCW1 ([facility]) Smoking 12/06/2020 12:00:00 AM EDT Never Smoker completed Never S moker eCW1 ([facility]) Smoking 11/14/2020 12:00:00 AM EDT Never Smoker completed Never S moker eCW1 ([facility]) Smoking 11/14/2020 12:00:00 AM EDT Never Smoker completed Never S moker eCW1 ([facility]) Smoking 11/14/2020 12:00:00 AM EDT Never Smoker completed Never S moker eCW1 ([facility]) Smoking 09/03/2020 12:00:00 AM EDT Never Smoker completed Never S moker eCW1 ([facility]) Smoking 09/03/2020 12:00:00 AM EDT Never Smoker completed Never S moker eCW1 ([facility]) Smoking 09/03/2020 12:00:00 AM EDT Never Smoker completed Never S moker eCW1 ([facility]) Smoking 09/03/2020 12:00:00 AM EDT Never Smoker completed Never S moker eCW1 ([facility]) Smoking 09/03/2020 12:00:00 AM EDT Never Smoker completed Never S moker eCW1 ([facility]) Smoking 09/03/2020 12:00:00 AM EDT Never Smoker completed Never S moker eCW1 ([facility]) Smoking 08/12/2020 12:00:00 AM EDT Never Smoker completed Never S moker eCW1 ([facility]) Smoking 08/12/2020 12:00:00 AM EDT Never Smoker completed Never S moker eCW1 ([facility]) Smoking 08/12/2020 12:00:00 AM EDT Never Smoker completed Never S moker eCW1 ([facility]) Smoking 04/19/2020 12:00:00 AM EST Never Smoker completed Never S moker eCW1 ([facility]) Smoking 04/19/2020 12:00:00 AM EST Never Smoker completed Never S moker eCW1 ([facility]) Smoking 04/19/2020 12:00:00 AM EST Never Smoker completed Never S moker eCW1 ([facility]) Smoking 04/19/2020 12:00:00 AM EST Never Smoker completed Never S moker eCW1 ([facility]) Smoking 04/19/2020 12:00:00 AM EST Never Smoker completed Never S moker eCW1 ([facility]) Smoking 04/19/2020 12:00:00 AM EST Never Smoker completed Never S moker eCW1 ([facility]) Smoking 04/19/2020 12:00:00 AM EST Never Smoker completed Never S moker eCW1 ([facility]) Smoking 04/19/2020 12:00:00 AM EST Never Smoker completed Never S moker eCW1 ([facility]) Smoking 03/14/2020 12:00:00 AM EST Never Smoker completed Never S moker eCW1 ([facility]) Smoking 03/06/2020 12:00:00 AM EST Never Smoker completed Never S moker eCW1 ([facility]) Smoking 01/17/2020 12:00:00 AM EST Never Smoker completed Never S moker eCW1 ([facility]) Smoking 01/17/2020 12:00:00 AM EST Never Smoker completed Never S moker eCW1 ([facility]) Smoking 01/17/2020 12:00:00 AM EST Never Smoker completed Never S moker eCW1 ([facility]) Smoking 01/17/2020 12:00:00 AM EST Never Smoker completed Never S moker eCW1 ([facility]) Smoking 01/04/2020 12:00:00 AM EDT Never Smoker completed Never S moker eCW1 ([facility]) Smoking 01/04/2020 12:00:00 AM EDT Never Smoker completed Never S moker eCW1 ([facility]) Smoking 01/04/2020 12:00:00 AM EDT Never Smoker completed Never S moker eCW1 ([facility]) Smoking 01/04/2020 12:00:00 AM EDT Never Smoker completed Never S moker eCW1 ([facility]) Smoking 12/25/2019 12:00:00 AM EDT Never Smoker completed Never S moker eCW1 ([facility]) Smoking 12/25/2019 12:00:00 AM EDT Never Smoker completed Never S moker eCW1 ([facility]) Smoking 12/25/2019 12:00:00 AM EDT Never Smoker completed Never S moker eCW1 ([facility]) Vital Signs ID Date Data Source UNK Name Value Range Interpretation Code Description Data Source(s) Body weight 169.2 [lb_av] 169.2 [lb_av] eCW1 ([facility]) Body weight 76.75 kg 76.75 kg eCW1 ([facility]) Body height 56.25 [in_i] 56.25 [in_i] eCW1 ([facility]) Body mass index (BMI) [Ratio] 37.59 kg/m2 37.59 kg/m2 eCW1 ([facility]) Heart rate 66 /min 66 /min eCW1 ([facility]) Respiratory rate 18 /min 18 /min eCW1 ([facility]) Body temperature 98.4 [degF] 98.4 [degF] eCW1 ( [facility]) Systolic blood pressure 132 mm[Hg] 132 mm[Hg] e CW1 ([facility]) Diastolic blood pressure 61 mm[Hg] 61 mm[Hg] eCW1 ([facility]) Body weight 165 [lb_av] 165 [lb_av] eCW1 ([facility]) Body weight 74.84 kg 74.84 kg eCW1 ([facility]) Body height 56.25 [in_i] 56.25 [in_i] eCW1 ([facility]) Body mass index (BMI) [Ratio] 36.66 kg/m2 36.66 kg/m2 eCW1 ([facility]) Heart rate 89 /min 89 /min eCW1 ([facility]) Respiratory rate 18 /min 18 /min eCW1 ([facility]) Body temperature 98.0 [degF] 98.0 [degF] eCW1 ( [facility]) Systolic blood pressure 132 mm[Hg] 132 mm[Hg] e CW1 ([facility]) Diastolic blood pressure 72 mm[Hg] 72 mm[Hg] eCW1 ([facility]) Body weight 164.8 [lb_av] 164.8 [lb_av] eCW1 ([facility]) Body height 56.25 [in_i] 56.25 [in_i] eCW1 ([facility]) Body mass index (BMI) [Ratio] 36.62 kg/m2 36.62 kg/m2 eCW1 ([facility]) Heart rate 66 /min 66 /min eCW1 ([facility]) Respiratory rate 18 /min 18 /min eCW1 ([facility]) Body temperature 99 [degF] 99 [degF] eCW1 ([facility]) Systolic blood pressure 135 mm[Hg] 135 mm[Hg] e CW1 ([facility]) Diastolic blood pressure 69 mm[Hg] 69 mm[Hg] eCW1 ([facility]) Body height 57 [in_i] 57 [in_i] MEDENT ([facility]) 4'9" Body weight 163.00 [lb_av] 163.00 [lb_av] MEDEN T ([facility]) Body mass index (BMI) [Ratio] 35.3 kg/m2 35.3 k g/m2 MEDENT ([facility]) Body weight 162 [lb_av] 162 [lb_av] eCW1 ([facility]) Body height 56.25 [in_i] 56.25 [in_i] eCW1 ([facility]) Body mass index (BMI) [Ratio] 35.99 kg/m2 35.99 kg/m2 eCW1 ([facility]) Heart rate 95 /min 95 /min eCW1 ([facility]) Respiratory rate 18 /min 18 /min eCW1 ([facility]) Body temperature 98.1 [degF] 98.1 [degF] eCW1 ( [facility]) Systolic blood pressure 112 mm[Hg] 112 mm[Hg] e CW1 ([facility]) Diastolic blood pressure 74 mm[Hg] 74 mm[Hg] eCW1 ([facility]) Diastolic blood pressure 72 mm[Hg] 72 mm[Hg] eCW1 ([facility]) Body weight 170 [lb_av] 170 [lb_av] eCW1 ([facility]) Body height 56.25 [in_i] 56.25 [in_i] eCW1 ([facility]) Body mass index (BMI) [Ratio] 37.77 kg/m2 37.77 kg/m2 eCW1 ([facility]) Heart rate 91 /min 91 /min eCW1 ([facility]) Respiratory rate 18 /min 18 /min eCW1 ([facility]) Body temperature 99.2 [degF] 99.2 [degF] eCW1 ( [facility]) Systolic blood pressure 104 mm[Hg] 104 mm[Hg] e CW1 ([facility]) Body weight 168 [lb_av] 168 [lb_av] eCW1 ([facility]) Body height 56.25 [in_i] 56.25 [in_i] eCW1 ([facility]) Body mass index (BMI) [Ratio] 37.33 kg/m2 37.33 kg/m2 eCW1 ([facility]) Heart rate 115 /min 115 /min eCW1 ([facility]) Respiratory rate 18 /min 18 /min eCW1 ([facility]) Body temperature 99.8 [degF] 99.8 [degF] eCW1 ( [facility]) Systolic blood pressure 102 mm[Hg] 102 mm[Hg] e CW1 ([facility]) Diastolic blood pressure 78 mm[Hg] 78 mm[Hg] eCW1 ([facility]) Body weight 172.4 [lb_av] 172.4 [lb_av] eCW1 ([facility]) Body height 56.25 [in_i] 56.25 [in_i] eCW1 ([facility]) Body mass index (BMI) [Ratio] 38.30 kg/m2 38.30 kg/m2 eCW1 ([facility]) Heart rate 102 /min 102 /min eCW1 ([facility]) Respiratory rate 18 /min 18 /min eCW1 ([facility]) Body temperature 98.1 [degF] 98.1 [degF] eCW1 ( [facility]) Systolic blood pressure 138 mm[Hg] 138 mm[Hg] e CW1 ([facility]) Diastolic blood pressure 86 mm[Hg] 86 mm[Hg] eCW1 ([facility]) Body weight 169.2 [lb_av] 169.2 [lb_av] eCW1 ([facility]) Body height 56.25 [in_i] 56.25 [in_i] eCW1 ([facility]) Body mass index (BMI) [Ratio] 37.59 kg/m2 37.59 kg/m2 eCW1 ([facility]) Heart rate 102 /min 102 /min eCW1 ([facility]) Respiratory rate 18 /min 18 /min eCW1 ([facility]) Body temperature 96.9 [degF] 96.9 [degF] eCW1 ( [facility]) Systolic blood pressure 115 mm[Hg] 115 mm[Hg] e CW1 ([facility]) Diastolic blood pressure 62 mm[Hg] 62 mm[Hg] eCW1 ([facility]) Body weight 171 [lb_av] 171 [lb_av] eCW1 ([facility]) Body height 56.25 [in_i] 56.25 [in_i] eCW1 ([facility]) Body mass index (BMI) [Ratio] 37.99 kg/m2 37.99 kg/m2 eCW1 ([facility]) Heart rate 106 /min 106 /min eCW1 ([facility]) Respiratory rate 18 /min 18 /min eCW1 ([facility] [facility]) Body temperature 98.6 [degF] 98.6 [degF] eCW1 ( [facility]) Systolic blood pressure 130 mm[Hg] 130 mm[Hg] e CW1 ([facility]) Diastolic blood pressure 78 mm[Hg] 78 mm[Hg] eCW1 ([facility]) Body height 56.25 [in_i] 56.25 [in_i] eCW1 ([facility]) Body weight 170.2 [lb_av] 170.2 [lb_av] eCW1 ([facility]) Body temperature 98.2 [degF] 98.2 [degF] eCW1 ( [facility]) Systolic blood pressure 114 mm[Hg] 114 mm[Hg] e CW1 ([facility]) Diastolic blood pressure 70 mm[Hg] 70 mm[Hg] eCW1 ([facility]) Body mass index (BMI) [Ratio] 37.82 kg/m2 37.82 kg/m2 eCW1 ([facility]) Heart rate 95 /min 95 /min eCW1 ([facility]) Respiratory rate 18 /min 18 /min eCW1 ([facility]) Body weight 172 [lb_av] 172 [lb_av] eCW1 ([facility]) Body height 56.25 [in_i] 56.25 [in_i] eCW1 ([facility]) Body mass index (BMI) [Ratio] 38.22 kg/m2 38.22 kg/m2 eCW1 ([facility]) Heart rate 107 /min 107 /min eCW1 ([facility]) Respiratory rate 18 /min 18 /min eCW1 ([facility]) Body temperature 99.1 [degF] 99.1 [degF] eCW1 ( [facility]) Systolic blood pressure 110 mm[Hg] 110 mm[Hg] e CW1 ([facility]) Diastolic blood pressure 78 mm[Hg] 78 mm[Hg] eCW1 ([facility]) Body temperature 97.1 [degF] 97.1 [degF] MEDENT ([facility] ) Patient Treatment Plan of Care Planned Activity Planned Date Details Description Data Source (s) Bath/Shower Seat - 08/30/2020 12:00:00 AM EDT eCW1 ([facility]) Hand Held Shower [place] - 08/30/2020 12:00:00 AM EDT eCW1 ([facility]) Wall Grab Bar - 08/30/2020 12:00:00 AM EDT eCW1 ([facility]) Bath/Shower Seat - 08/30/2020 12:00:00 AM EDT eCW1 ([facility]) Hand Held Shower [place] - 08/30/2020 12:00:00 AM EDT eCW1 ([facility]) Wall Grab Bar - 08/30/2020 12:00:00 AM EDT eCW1 ([facility]) Diclofenac Sodium 50 MG Delayed Release Oral Tablet 01/17/20 12:00:00 AM EST eCW1 ([facility]) Diclofenac Sodium 50 MG Delayed Release Oral Tablet 01/17/20 12:00:00 AM EST eCW1 ([facility]) Diclofenac Sodium 50 MG Delayed Release Oral Tablet 01/17/20 12:00:00 AM EST eCW1 ([facility]) Diclofenac Sodium 50 MG Delayed Release Oral Tablet 01/17/20 12:00:00 AM EST eCW1 ([facility]) Diclofenac Sodium 50 MG Delayed Release Oral Tablet 01/17/20 12:00:00 AM EST eCW1 ([facility]) Diclofenac Sodium 50 MG Delayed Release Oral Tablet 01/17/20 12:00:00 AM EST eCW1 ([facility]) Diclofenac Sodium 50 MG Delayed Release Oral Tablet 01/17/20 12:00:00 AM EST eCW1 ([facility]) Diclofenac Sodium 50 MG Delayed Release Oral Tablet 01/17/20 12:00:00 AM EST eCW1 ([facility]) Diclofenac Sodium 50 MG Delayed Release Oral Tablet 01/17/20 12:00:00 AM EST eCW1 ([facility]) Diclofenac Sodium 50 MG Delayed Release Oral Tablet 01/17/20 12:00:00 AM EST eCW1 ([facility]) Diclofenac Sodium 50 MG Delayed Release Oral Tablet 01/17/20 12:00:00 AM EST eCW1 ([facility]) Diclofenac Sodium 50 MG Delayed Release Oral Tablet 01/17/20 12:00:00 AM EST eCW1 ([facility]) Diclofenac Sodium 50 MG Delayed Release Oral Tablet 01/17/20 12:00:00 AM EST eCW1 ([facility]) Diclofenac Sodium 50 MG Delayed Release Oral Tablet 01/17/20 12:00:00 AM EST eCW1 ([facility]) Diclofenac Sodium 50 MG Delayed Release Oral Tablet 01/17/20 12:00:00 AM EST eCW1 ([facility]) Diclofenac Sodium 50 MG Delayed Release Oral Tablet 01/17/20 12:00:00 AM EST eCW1 ([facility]) Diclofenac Sodium 50 MG Delayed Release Oral Tablet 01/17/20 12:00:00 AM EST eCW1 ([facility])
[2021-01-02 17:26] LABS: HEMATOCRIT 33.1 % (36.0-47.0); HEMOGLOBIN 11.3 g/dl (12.0-15.5); MEAN CORPUSCULAR HEMOGLOBIN 31.2 pg (27.0-33.0); MEAN CORPUSCULAR HGB CONC 34.1 g/dl (32.0-36.5); MEAN CORPUSCULAR VOLUME 91.4 fl (80.0-96.0); PLATELET COUNT, AUTOMATED 330 10^3/uL (150-450); RED BLOOD COUNT 3.62 10^6/uL (4.00-5.40); WHITE BLOOD COUNT 8.3 10^3/uL (4.0-10.0)
[2021-01-02 17:51] LABS: ACETAMINOPHEN LEVEL < 2.0 UG/ML (10.0-30.0); ALBUMIN 3.8 GM/DL (3.2-5.2); ALT/SGPT 36 U/L (12-78); BILIRUBIN,DIRECT < 0.1 MG/DL (0.0-0.2); BILIRUBIN,TOTAL 0.2 MG/DL (0.2-1.0); BLOOD UREA NITROGEN 9 MG/DL (7-18); CALCIUM LEVEL 9.2 MG/DL (8.8-10.2); CARBON DIOXIDE LEVEL 30 MEQ/L (21-32); CHLORIDE LEVEL 98 MEQ/L (98-107); CREATININE FOR GFR 0.73 MG/DL (0.55-1.30); ETHYL ALCOHOL (ETHANOL) < 0.003 % (0.000-0.010); GLOMERULAR FILTRATION RATE > 60.0 (>45); GLUCOSE, FASTING 118 MG/DL (70-100); POTASSIUM SERUM 4.5 MEQ/L (3.5-5.1); SALICYLATE LEVEL < 1.7 MG/DL (5.0-30.0); SODIUM LEVEL 130 MEQ/L (136-145); TOTAL PROTEIN 6.5 GM/DL (6.4-8.2)
[2021-01-02 18:08] LABS: AMPHETAMINES LEVEL URINE NEGATIVE (NEGATIVE); BARBITURATES URINE NEGATIVE (NEGATIVE); BENZODIAZEPINES URINE NEGATIVE (NEGATIVE); CANNABINOIDS URINE NEGATIVE (NEGATIVE); COCAINE METABOLITE URINE NEGATIVE (NEGATIVE); METHADONE URINE NEGATIVE (NEGATIVE); OPIATES URINE NEGATIVE (NEGATIVE); PHENCYCLIDINE URINE NEGATIVE (NEGATIVE)
[2021-01-02] MEDS ORDERED: LORazepam 0.5 MG TAB PO ONE (19:30)
[2021-01-02 22:45] LABS: RSV AMPLIFICATION NEGATIVE (NEGATIVE)
[2021-01-02] MEDS ORDERED: MOM 30ML SUSPENSION UDC PO PRN (22:55)
[2021-01-02] MEDS ORDERED: MAALOX 30 ML SUSP *UDC PO PRN (22:55)
[2021-01-02] MEDS ORDERED: traZODone 50 MG TAB PO PRN (22:55)
[2021-01-02] MEDS ORDERED: ACETAMINOPHEN TAB 650MG DOSE (2X325MG) PO PRN (22:55)
[2021-01-02] MEDS ORDERED: ATIV1TAB7 PO (23:14)
[2021-01-02] MEDS ORDERED: RISP-9 PO (23:14)
[2021-01-02] MEDS ORDERED: TRAZ-252 PO (23:14)
[2021-01-02] MEDS ORDERED: OYST1TAB PO (23:14)
[2021-01-02] MEDS ORDERED: VENL150C43 PO (23:14)
[2021-01-02] MEDS ORDERED: VITA200016 PO (23:14)
[2021-01-02] MEDS ORDERED: HOME MED LIST COMPLETE! XX SCH (23:15)
[2021-01-02 23:43] VITALS: BP 121/78
[2021-01-03] MEDS ORDERED: LORazepam 1 MG TAB PO ONE (02:05)
[2021-01-03] MEDS: LEVOTHYROXINE 50MCG TABLET (0.05MG) PO SCH (06:03)
[2021-01-03] MEDS: LIDOCAINE 5% (LIDODERM) PATCH TD SCH (09:00)
[2021-01-03] MEDS ORDERED: FLUBLOK(EGG FREE)(QUAD)INFLUENZA VACC 0.5ML SYRINGE 18YRS & OLDER IM ONE (09:00)
[2021-01-03] MEDS: VENLAFAXINE **XR** 75MG CAPSULE PO SCH (09:13)
[2021-01-03] MEDS: OYSTER SHELL CALCIUM 500 MG TAB PO SCH (09:13)
[2021-01-03] MEDS: LORazepam 1 MG TAB PO SCH ×2 (09:13→20:05)
[2021-01-03] MEDS: BENZTROPINE 0.5 MG TAB PO SCH ×2 (09:13→20:06)
[2021-01-03 13:14] LABS: ALBUMIN 3.9 GM/DL (3.2-5.2); ALT/SGPT 38 U/L (12-78); BILIRUBIN,TOTAL 0.3 MG/DL (0.2-1.0); BLOOD UREA NITROGEN 9 MG/DL (7-18); CALCIUM LEVEL 9.4 MG/DL (8.8-10.2); CARBON DIOXIDE LEVEL 29 MEQ/L (21-32); CHLORIDE LEVEL 99 MEQ/L (98-107); GLOMERULAR FILTRATION RATE > 60.0 (>45); GLUCOSE, FASTING 133 MG/DL (70-100); POTASSIUM SERUM 4.4 MEQ/L (3.5-5.1); SODIUM LEVEL 133 MEQ/L (136-145); TOTAL PROTEIN 6.6 GM/DL (6.4-8.2)
--- NOTE | 2021-01-03 14:02 | HPEPDOC ---
[facility] Medical History & Physical Date of Admission Jan 02, 2021 Date of Service: Jan 03, 2021 History and Physical CHIEF COMPLAINT: Suicidal ideation HISTORY OF PRESENT ILLNESS: 65-year-old female presents to emergency room for suicidal ideation. Patient states she has had a hard time adjusting to her parents passing in May of this year. Patient has a previous history of suicide attempt with an intentional drug overdose. On evaluation she denies chest pain, shortness of breath, headaches, changes in vision, abdominal pain, nausea, vomiting, diarrhea. PAST MEDICAL HISTORY: from chart review #HTN #Hypothyroidism #Myopic astigmatism #Asthma, mild intermittent #Ductal carcinoma in situ, no chemo or radiation #Morbid obesity #Neurocognitive impairment SOCIAL HISTORY: Denies nicotine, alcohol or illicit drug abuse. FAMILY HISTORY: Father: at 99 years, dementia, hypertension Mother: at 88 years, no known medical history ALLERGIES: Please see below. REVIEW OF SYSTEMS: Negative except as per HPI. HOME MEDICATIONS: Please see below. PHYSICAL EXAMINATION: Vital Signs: reviewed General: NAD, sitting comfortably in chair, elderly HEENT: NC/AT, EOMI Neck: supple, no masses Chest: lungs CTA B/L Heart: +S1S2, RRR Abd: soft, NT, ND, +BS, obese Ext: no edema Skin: no rashes MSK: full ROM at large joints Neuro: no gross focal deficits Psych: AAOx3 LABORATORY DATA: See below. MICROBIOLOGY: Please see below. A/P: 65-year-old female admitted for suicide ideation, with history of previous suicide attempt with intentional drug overdose. #SI -Follow as per primary teampsychiatry #HTN - continue lisinopril and metoprolol #Hypothyroidism - not on supplementation as per home med rec #Myopic astigmatism #Asthma, mild intermittent #Ductal carcinoma in situ, no chemo or radiation #Morbid obesity #Neurocognitive impairment Thank you for this consultation. Please reconsult as needed. Vital Signs Vital Signs Date Time Temp Pulse Resp B/P (MAP) Pulse Ox O2 Delivery O2 Flow Rate FiO2 01/02/21 23:43 98.9 19 18 121/78 (92) 96 Room Air Laboratory Data Labs 24H Laboratory Tests 2 01/02/21 16:54: Nucleated Red Blood Cells % (auto) 0.0, Anion Gap 2L, Glomerular Filtration Rate > 60.0, Calcium Level 9.2, Total Bilirubin 0.2, Direct Bilirubin < 0.1, Aspartate Amino Transf (AST/SGOT) 24, Alanine Aminotransferase (ALT/SGPT) 36, Alkaline Phosphatase 62, Total Protein 6.5, Albumin 3.8, Albumin/Globulin Ratio 1.4, Thyroid Stimulating Hormone (TSH) 1.640, Salicylates Level < 1.7L, Acetaminophen Level < 2.0L, Ethyl Alcohol Level < 0.003 01/02/21 17:11: Urine Opiates Screen NEGATIVE, Urine Methadone Screen NEGATIVE, Urine Barbiturates Screen NEGATIVE, Urine Phencyclidine Screen NEGATIVE, Urine Amphetamines Screen NEGATIVE, Urine Benzodiazepines Screen NEGATIVE, Urine Cocaine Metabolite Screen NEGATIVE, Urine Cannabinoids Screen NEGATIVE 01/02/21 21:56: Coronavirus (COVID-19)(PCR) NEGATIVE, Influenza Type A (RT-PCR) NEGATIVE, Influenza Type B (RT-PCR) NEGATIVE, Respiratory Syncytial Virus (PCR) NEGATIVE 01/03/21 12:32: Anion Gap 5L, Glomerular Filtration Rate > 60.0, Calcium Level 9.4, Total Bilirubin 0.3, Aspartate Amino Transf (AST/SGOT) 29, Alanine Aminotransferase (ALT/SGPT) 38, Alkaline Phosphatase 65, Total Protein 6.6, Albumin 3.9, Albumin/Globulin Ratio 1.4 CBC/BMP Laboratory Tests 01/02/21 16:54 01/03/21 12:32 Home Medications Scheduled Benztropine Mesylate (Benztropine Mesylate) 0.5 Mg Tablet, 0.5 MG PO BID Calcium Carbonate (Calcium) 500 Mg Tablet, 500 MG PO DAILY Cholecalciferol (Vitamin D3) (Vitamin D3) 50 Mcg Capsule, 50 MCG PO DAILY Diclofenac Sodium (Diclofenac Sodium) 50 Mg Tablet.dr, 50 MG PO BID Donepezil HCl (Donepezil HCl) 10 Mg Tablet, 10 MG PO QHS Levothyroxine Sodium (Synthroid) 50 Mcg Tablet, 50 MCG PO DAILY Lisinopril (Lisinopril) 20 Mg Tablet, 20 MG PO DAILY Lorazepam (Ativan) 1 Mg Tablet, 1 MG PO BID Metoprolol Tartrate (Metoprolol Tartrate) 25 Mg Tablet, 25 MG PO BID Mirtazapine (Remeron) 15 Mg Tablet, 7.5 MG PO QHS Multivitamins (Thera M Plus Tablet) 1 Each Tablet, 1 TAB PO DAILY Paliperidone Palmitate (Invega Trinza) 819 Mg/2.625 Ml Syringe, 819 MG IM Q3M Risperidone (Risperidone) 1 Mg Tablet, 1 MG PO DAILY Risperidone (Risperidone) 2 Mg Tablet, 2 MG PO QHS Trazodone HCl (Trazodone HCl) 50 Mg Tablet, 50 MG PO QHS Venlafaxine HCl (Venlafaxine HCl ER) 150 Mg Cap.er.24h, 150 MG PO DAILY Allergies Coded Allergies: No Known Allergies (Verified , 01/25/18) A-FIB/CHADSVASC A-FIB History Current/History of A-Fib/PAF?: No KARYNA PALACIO MD Jan 03, 2021 14:02
[2021-01-03] MEDS ORDERED: traZODone 50 MG TAB PO PRN (14:10)
--- NOTE | 2021-01-03 14:55 | MHHPEPDOC ---
General Date Of Admission: Jan 02, 2021 Legal Status: 9.39 Chief Complaint "Sad" History of Present Illness HISTORY OF THE PRESENT ILLNESS: Patient is a 65 -year-old , female, with history of schizoaffective disorder, bipolar type, Alzheimer's dementia, self presents with depressed mood, suicidal ideations, reports acute stressor of father passing away in April of this year, mother in May of this year. Feels lonely, isolated living at [facility]'s apartment with her cat alone. When asked about the specific trigger for admission, is vague, reports that she is just depressed, patient is tearful, reports low mood for the last couple weeks, feelings of pervasive guilt, low energy, poor concentration, low appetite, decreased sleep which is "not so good". Patient utilizes walker. When asked about auditory hallucinations states a long time ago, different people and scary things, I do not know, but states not recently, was confirmed with outside provider for coordination of care with Dr. Yi/nursing, patient takes benztropine 0.5 mg twice daily, donepezil 10 mg nightly, Effexor 150 mg XR every morning, Invega Trinza 819 mg last dose December 24, 2020, lorazepam 1 mg twice daily, Risperdal 2 mg nightly, Risperdal 1 mg every morning, as needed trazodone 50 mg qhsp. Outside provider has known the patient for approximately 30 years, reports she has done well on these medications, but has concern due to suicidal thoughts of the patient which is a newer behavior, reports the patient has been very compliant with medications, as far she is aware, does not think the patient has intellectual disability. Patient has a tremor which improved when seen again later in the afternoon, likely in context of anxiety symptoms. Patient is alert and oriented x4, there has a diagnosis of dementia made 3 to 4 years ago. Psychiatric Review of Systems Depression (2 or more weeks): depressed mood, anhedonia, insomnia/hypersomnia, feelings of excess/guilt, feelings of worthlesness, decreased energy, difficulty concentrating, appetite changes, psychomotor changes, suicidal thoughts Jessie (4 or more days of): denies Psychosis: denies PTSD: denies Anxiety: stressor related anxiety Anxiety/ 6 months or more of: difficulty concentrating, sleep disturbance Past Psychiatric History Previous Psychiatric Diagnosis: Bipolar disorder, depression, schizoaffective disorder, Alzheimer's Previous Psychiatric Admissions: Multiple, last admission July 19, 2020 Suicide Attempts: 1 time per chart review Psychiatric Follow-up: [facility], Dr. Yi Psychiatric medications: Multiple, see HPI Past Medical History Medical Problems Hypothyroidism, Myopic astigmatism, Asthma, mild intermittent, Ductal carcinoma in situ, no chemo or radiation, Morbid obesity, Neurocognitive impairment (Alzheimer's) Head Injury: No Seizures: No Hospitalizations: No Surgeries: No Family Medical/Psychiatric HX Medical Problems Noncontributory, patient unaware Addiction History denies Social History Childhood: Reports okay Abuse/Trauma: Not indicated Current Living Situation: [email or web address] independent apartments, lives with a cat, per chart review [facility] because she does not know what she will do with her cat Education: Unknown Employment: Unemployed Social Support: Family support Legal: Denies. Marital: Not Mental Status Examination General Appearance: well groomed Build: overweight Demeanor: preoccupied, guarded Eye Contact: avoidant Activity: slowed, anxious Behavior: cooperative, loss of interests, anhedonia Speech: clear, spontaneous, slow Mood: depressed, anxious Mood "sad" Affect: constricted, labile, anxious, other (Tearful) Thought Process: logical/linear, concrete, depressed, slow Thought Content (Delusions): none reported Thought Content (Other): none reported Thought Content (Aggressive): none reported Perception (Hallucinations): none reported Perception (Other): none reported Cognition (Impairment of): memory, attention/concentration Cognition(Intelligence Est.): borderline Oriented: Awake, Alert, Oriented times three Insight: other (Limited) Judgment: Other (Limited) Psychosis: Denies Diagnoses Schizoaffective, bipolar type per history and chart review Major neurocognitive disorder (timers, supplemented with donepezil) A-FIB/CHADSVASC A-FIB History Current/History of A-Fib/PAF?: No Current PO Anticoag Therapy: No Age/Risk Factor Scoring CHADSVASC: CHADSVASC Response (Comments) Value Age Risk Factor Age < 65 years old 0 Gender Risk Factor Female 1 Hx of CHF No 0 Hx of HTN No 0 Hx of Stroke/TIA/or VTE No 0 Hx of Diabetes No 0 Hx of Vascular Disease No 0 Total 1 Treatment Treatment ordered: NONE Reason Anticoagulant not given: Other (Defer to hospitalist team) Other reason anticoagulant not: Defer to hospitalist team Assessment Patient is a 65-year-old female who self presents with worsening depression and SI, has a history of schizoaffective disorder bipolar type and has been compliant with medications, has acute stressor of feeling lonely in context of both parents recently passing in April and May of this year, previously she is dependent on these parents for support and is very saddened with her loss. Patient denies any symptoms of jessie, reports symptoms of low mood, guilt, low energy, poor concentration, decreased appetite, psychomotor changes, suicidal thoughts and decreased sleep, lasting over a week, also reports a history of auditory or visual hallucinations, paranoia, reports she presented this way's mental health years ago but the symptoms have been well treated with her home medications including Risperdal and Invega Trinza 819 mg q3 months, last dose was given December 24, 2020, agrees to continue on home medications, lidocaine patch was given as the diclofenac is not on formulary for back pain and right shoulder pain. Was also continue other home meds including Risperdal 2 mg nightly, 1 mg every morning, Effexor 150 mg extended release every morning, donepezil 10 mg nightly, benztropine 0.5 mg twice daily, trazodone 50 mg nightly as needed, blood pressure medications, levothyroxine, vitamin supplementation. Collateral was obtained by outside provider, clinic to help establish medication regime, diagnosis, treatment plan. Repeat CMP shows sodium trended up to 133, patient is educated about drinking adequate and not excessive oral intake of fluids, toxicology screen negative, TSH within normal limits. Patient encouraged to attend groups. Initial Treatment Plan 1. Patient was admitted on a [9.39] status. 2. Complete history was obtained. 3. With patients permission, family will be contacted and database will be expanded. 4. Patients medication regimen will be reviewed and changed accordingly. 5. Patient will be provided with protected environment. 6. Patient will be treated with individual, group, and milieu therapies. 7. Patient will receive supportive psych-education. 8. Discharge planning will commence immediately. 9. Outpatient follow-up treatment will be strongly recommended. 10. The initial treatment plan will focus initially on: * Depression. * Risk for suicide. ESTIMATED LENGTH OF STAY: 3-7DAYS. TIME SPENT COUNSELING AND COORDINATING INITIAL CARE: 70 minutes. Tobacco Cessation Screen If Patient is a Smoker no Ordered/Pending Vital Signs Vital Signs Date Time Temp Pulse Resp B/P (MAP) Pulse Ox O2 Delivery O2 Flow Rate FiO2 01/02/21 23:43 98.9 19 18 121/78 (92) 96 Room Air Laboratory Data 24H Labs Laboratory Tests 2 01/02/21 16:54: Nucleated Red Blood Cells % (auto) 0.0, Anion Gap 2L, Glomerular Filtration Rate > 60.0, Calcium Level 9.2, Total Bilirubin 0.2, Direct Bilirubin < 0.1, Aspartate Amino Transf (AST/SGOT) 24, Alanine Aminotransferase (ALT/SGPT) 36, Alkaline Phosphatase 62, Total Protein 6.5, Albumin 3.8, Albumin/Globulin Ratio 1.4, Thyroid Stimulating Hormone (TSH) 1.640, Salicylates Level < 1.7L, Acetaminophen Level < 2.0L, Ethyl Alcohol Level < 0.003 01/02/21 17:11: Urine Opiates Screen NEGATIVE, Urine Methadone Screen NEGATIVE, Urine Barbiturates Screen NEGATIVE, Urine Phencyclidine Screen NEGATIVE, Urine Amphetamines Screen NEGATIVE, Urine Benzodiazepines Screen NEGATIVE, Urine Cocaine Metabolite Screen NEGATIVE, Urine Cannabinoids Screen NEGATIVE 01/02/21 21:56: Coronavirus (COVID-19)(PCR) NEGATIVE, Influenza Type A (RT-PCR) NEGATIVE, Influenza Type B (RT-PCR) NEGATIVE, Respiratory Syncytial Virus (PCR) NEGATIVE 01/03/21 12:32: Anion Gap 5L, Glomerular Filtration Rate > 60.0, Calcium Level 9.4, Total Biliru bin 0.3, Aspartate Amino Transf (AST/SGOT) 29, Alanine Aminotransferase (ALT/SGPT) 38, Alkaline Phosphatase 65, Total Protein 6.6, Albumin 3.9, Albumin/Globulin Ratio 1.4 CBC/BMP Laboratory Tests 01/02/21 16:54 01/03/21 12:32 Medications Scheduled Benztropine Mesylate (Benztropine Mesylate) 0.5 Mg Tablet, 0.5 MG PO BID, (Reported) Calcium Carbonate (Calcium) 500 Mg Tablet, 500 MG PO DAILY, (Reported) Cholecalciferol (Vitamin D3) (Vitamin D3) 50 Mcg Capsule, 50 MCG PO DAILY, (Reported) Diclofenac Sodium (Diclofenac Sodium) 50 Mg Tablet.dr, 50 MG PO BID, (Reported) Donepezil HCl (Donepezil HCl) 10 Mg Tablet, 10 MG PO QHS, (Reported) Levothyroxine Sodium (Synthroid) 50 Mcg Tablet, 50 MCG PO DAILY, (Reported) Lisinopril (Lisinopril) 20 Mg Tablet, 20 MG PO DAILY, (Reported) Lorazepam (Ativan) 1 Mg Tablet, 1 MG PO BID, (Reported) Metoprolol Tartrate (Metoprolol Tartrate) 25 Mg Tablet, 25 MG PO BID, (Reported) Mirtazapine (Remeron) 15 Mg Tablet, 7.5 MG PO QHS, (Reported) Multivitamins (Thera M Plus Tablet) 1 Each Tablet, 1 TAB PO DAILY, (Reported) Paliperidone Palmitate (Invega Trinza) 819 Mg/2.625 Ml Syringe, 819 MG IM Q3M, (Reported) Risperidone (Risperidone) 1 Mg Tablet, 1 MG PO DAILY, (Reported) Risperidone (Risperidone) 2 Mg Tablet, 2 MG PO QHS, (Reported) Trazodone HCl (Trazodone HCl) 50 Mg Tablet, 50 MG PO QHS, (Reported) Venlafaxine HCl (Venlafaxine HCl ER) 150 Mg Cap.er.24h, 150 MG PO DAILY, (Reported) Allergies Coded Allergies: No Known Allergies (Verified , 01/25/18) DEJA MONTEZ MD Jan 03, 2021 14:55
[2021-01-03 16:14] VITALS: BP 132/77
[2021-01-03] MEDS: **NOTE PATIENT COMMENT** MISC XX SCH (20:03)
[2021-01-03] MEDS: MIRTAZAPINE 7.5MG PER 1/2 TABLET PO SCH (20:06)
[2021-01-03] MEDS: risperiDONE 2 MG TAB PO SCH (20:06)
[2021-01-03] MEDS: METOPROLOL TART 25 MG TABLET PO SCH (20:06)
[2021-01-04] MEDS: LEVOTHYROXINE 50MCG TABLET (0.05MG) PO SCH (05:46)
[2021-01-04 07:05] VITALS: BP 149/75
[2021-01-04] MEDS: LORazepam 1 MG TAB PO SCH ×2 (08:15→20:02)
[2021-01-04] MEDS: DONEPEZIL 5 MG TAB PO SCH (08:15)
[2021-01-04] MEDS: VENLAFAXINE **XR** 75MG CAPSULE PO SCH (08:15)
[2021-01-04] MEDS: OYSTER SHELL CALCIUM 500 MG TAB PO SCH (08:16)
[2021-01-04] MEDS: risperiDONE 1 MG TAB PO SCH (08:16)
[2021-01-04] MEDS: BENZTROPINE 0.5 MG TAB PO SCH ×2 (08:16→20:02)
[2021-01-04] MEDS: METOPROLOL TART 25 MG TABLET PO SCH ×2 (08:16→20:03)
[2021-01-04] MEDS: LIDOCAINE 5% (LIDODERM) PATCH TD SCH (10:00)
[2021-01-04 16:27] VITALS: BP 116/60
--- NOTE | 2021-01-04 18:09 | MHIPNPDOC ---
[facility] Progress Note Progress Note DATE OF SERVICE: 01/04/21 HISTORY: As per previous notes: "Patient is a 65 -year-old , female, with history of schizoaffective disorder, bipolar type, Alzheimer's dementia, s elf presents with depressed mood, suicidal ideations, reports acute stressor of father passing away in April of this year, mother in May of this year. Feels lonely, isolated living at [facility]'s apartment with her cat alone. When asked about the specific trigger for admission, is vague, reports that she is just depressed, patient is tearful, reports low mood for the last couple weeks, feelings of pervasive guilt, low energy, poor concentration, low appetite, decreased sleep which is "not so good". Patient utilizes walker. When asked about auditory hallucinations states a long time ago, different people and scary things, I do not know, but states not recently, was confirmed with outside provider for coordination of care with Dr. Yi/nursing, patient takes benztropine 0.5 mg twice daily, donepezil 10 mg nightly, Effexor 150 mg XR every morning, Invega Trinza 819 mg last dose December 24, 2020, lorazepam 1 mg twice daily, Risperdal 2 mg nightly, Risperdal 1 mg every morning, as needed trazodone 50 mg qhsp. Outside provider has known the patient for approximately 30 years, reports she has done well on these medications, but has concern due to suicidal thoughts of the patient which is a newer behavior, reports the patient has been very compliant with medications, as far she is aware, does not think the patient has intellectual disability. Patient has a tremor which improved when seen again later in the afternoon, likely in context of anxiety symptoms. Patient is alert and oriented x4, there has a diagnosis of dementia made 3 to 4 years ago." VITAL SIGNS: See below. NEW TEST RESULTS: See below CURRENT MEDICATIONS: See below. MENTAL STATUS EXAMINATION: General Appearance: well groomed Build: overweight Demeanor: preoccupied, guarded Eye Contact: avoidant Activity: low activity levels, anxious Behavior: cooperative, loss of interest, low Speech: clear, spontaneous, slow Mood: depressed, anxious Mood " a little anxious" Affect: constricted, labile, anxious, almost tearful at this time Thought Process: logical/linear, concrete, depressed, slow Thought Content (Delusions): none reported Thought Content (Other): none reported Thought Content (Aggressive): none reported Perception (Hallucinations): none reported Perception (Other): none reported Cognition (Impairment of): memory, attention/concentration Cognition(Intelligence Est.): borderline Oriented: Awake, Alert, Oriented times three Insight: other (Limited) Judgment: Other (Limited) Psychosis: Denies Diagnoses Schizoaffective, bipolar type per history and chart review Major neurocognitive disorder (timers, supplemented with donepezil) ASSESSMENT: She mentions her parents not too long ago, she has been feeling sad. she says she feels less sad MANAGEMENT PLAN: Will continue with current treatment plan TIME SPENT: 20 minutes. Vital Signs Vital Signs Date Time Temp Pulse Resp B/P (MAP) Pulse Ox O2 Delivery O2 Flow Rate FiO2 01/04/21 16:27 98.7 88 16 116/60 (78) 100 Room Air Current Medications Current Medications Medications (Trade) Dose Ordered Sig/Dev Route PRN Reason Start Time Stop Time Status Last Admin Dose Admin Acetaminophen (Tylenol Tab) 650 mg Q6HP PRN PO HEADACHE or MILD DISCOMFORT 01/02/21 22:55 Al Hydrox/Mg Hydrox/Simethicone (Mylanta) 30 ml Q4HP PRN PO HEARTBURN/INDIGESTION 01/02/21 22:55 Benztropine Mesylate (Cogentin) 0.5 mg BID PO 01/03/21 09:00 01/04/21 08:16 Calcium Carbonate (Oscal) 500 mg DAILY PO 01/03/21 09:00 01/04/21 08:16 Donepezil HCl (AriCEPT) 10 mg DAILY PO 01/04/21 09:00 01/04/21 08:15 Home Med (Home Med List Complete!) ASDIRECTED XX 01/02/21 23:15 01/02/21 23:16 DC Levothyroxine Sodium (Synthroid) 50 mcg DAILY@0600 PO 01/03/21 06:00 01/04/21 05:46 Lidocaine (Lidoderm Patch) Apply to a patch to R shoul... DAILY TD 01/03/21 09:00 01/04/21 10:00 Lisinopril (Prinivil) 20 mg DAILY PO 01/03/21 09:00 01/04/21 08:16 Lorazepam (Ativan) 1 mg BID PO 01/03/21 09:00 01/04/21 08:15 Magnesium Hydroxide (Milk Of Magnesia) 30 ml DAILYPRN PRN PO CONSTIPATION 01/02/21 22:55 Metoprolol Tartrate (Lopressor) 25 mg BID PO 01/03/21 21:00 01/04/21 08:16 Mirtazapine (Remeron) 7.5 mg QHS PO 01/03/21 21:00 01/03/21 20:06 Non-Formulary Medication ( See Comment Field Below ) REMOVE LIDODERM PATCH DAILY@21 XX 01/03/21 21:00 Risperidone (RisperDAL) 1 mg DAILY PO 01/04/21 09:00 01/04/21 08:16 Risperidone (RisperDAL) 2 mg QHS PO 01/03/21 21:00 01/03/21 20:06 Trazodone HCl (Desyrel) 50 mg QHSP PRN PO INSOMNIA 01/02/21 22:55 01/03/21 00:52 Trazodone HCl (Desyrel) 50 mg QHSP PRN PO INSOMNIA 01/03/21 14:10 Venlafaxine HCl (Effexor Xr) 150 mg DAILY PO 01/03/21 09:00 01/04/21 08:15 Allergies Coded Allergies: No Known Allergies (Verified , 01/25/18) KYREE NICHOLAS MD Jan 04, 2021 18:00
[2021-01-04] MEDS: MIRTAZAPINE 7.5MG PER 1/2 TABLET PO SCH (20:02)
[2021-01-04] MEDS: risperiDONE 2 MG TAB PO SCH (20:02)
[2021-01-04] MEDS: **NOTE PATIENT COMMENT** MISC XX SCH (21:32)
[2021-01-05] MEDS: LEVOTHYROXINE 50MCG TABLET (0.05MG) PO SCH (06:34)
[2021-01-05 07:12] VITALS: BP 150/100
[2021-01-05] MEDS: LIDOCAINE 5% (LIDODERM) PATCH TD SCH (08:16)
[2021-01-05] MEDS: LORazepam 1 MG TAB PO SCH ×2 (08:16→20:15)
[2021-01-05] MEDS: METOPROLOL TART 25 MG TABLET PO SCH ×2 (08:18→20:15)
[2021-01-05] MEDS: VENLAFAXINE **XR** 75MG CAPSULE PO SCH (08:18)
[2021-01-05] MEDS: DONEPEZIL 5 MG TAB PO SCH (08:18)
[2021-01-05] MEDS: OYSTER SHELL CALCIUM 500 MG TAB PO SCH (08:18)
[2021-01-05] MEDS: BENZTROPINE 0.5 MG TAB PO SCH ×2 (08:18→20:15)
[2021-01-05] MEDS: risperiDONE 1 MG TAB PO SCH (08:19)
--- NOTE | 2021-01-05 12:20 | MHIPNPDOC ---
[facility] Progress Note Progress Note DATE OF SERVICE: 01/05/21 HISTORY: As per previous notes: "Patient is a 65 -year-old , female, with history of schizoaffective disorder, bipolar type, Alzheimer's dementia, s elf presents with depressed mood, suicidal ideations, reports acute stressor of father passing away in April of this year, mother in May of this year. Feels lonely, isolated living at [facility]'s apartment with her cat alone. When asked about the specific trigger for admission, is vague, reports that she is just depressed, patient is tearful, reports low mood for the last couple weeks, feelings of pervasive guilt, low energy, poor concentration, low appetite, decreased sleep which is "not so good". Patient utilizes walker. When asked about auditory hallucinations states a long time ago, different people and scary things, I do not know, but states not recently, was confirmed with outside provider for coordination of care with Dr. Yi/nursing, patient takes benztropine 0.5 mg twice daily, donepezil 10 mg nightly, Effexor 150 mg XR every morning, Invega Trinza 819 mg last dose December 24, 2020, lorazepam 1 mg twice daily, Risperdal 2 mg nightly, Risperdal 1 mg every morning, as needed trazodone 50 mg qhsp. Outside provider has known the patient for approximately 30 years, reports she has done well on these medications, but has concern due to suicidal thoughts of the patient which is a newer behavior, reports the patient has been very compliant with medications, as far she is aware, does not think the patient has intellectual disability. Patient has a tremor which improved when seen again later in the afternoon, likely in context of anxiety symptoms. Patient is alert and oriented x4, there has a diagnosis of dementia made 3 to 4 years ago." VITAL SIGNS: See below. NEW TEST RESULTS: See below CURRENT MEDICATIONS: See below. MENTAL STATUS EXAMINATION: General Appearance: well groomed Build: overweight Demeanor: preoccupied, guarded Eye Contact: avoidant Activity: low activity levels, anxious Behavior: cooperative, loss of interest, low Speech: clear, spontaneous, slow Mood: depressed, anxious Mood " anxious but happier today" Affect: more reactive, less constricted Thought Process: logical/linear, concrete, Thought Content (Delusions): none reported Thought Content (Other): Denies SI, denies feeling sad today about her parents. Thought Content (Aggressive): none reported Perception (Hallucinations): none reported Perception (Other): none reported Cognition (Impairment of): memory, attention/concentration Cognition(Intelligence Est.): borderline Oriented: Awake, Alert, Oriented times three Insight: other (Limited) Judgment: Other (Limited) Psychosis: Denies Diagnoses Schizoaffective, bipolar type per history and chart review Major neurocognitive disorder (timers, supplemented with donepezil) ASSESSMENT: She says she is fine, appetite and sleep are good. She says she is happier today and her mood and affect are brighter. Stable on current medications, not in danger to self or others at this time. MANAGEMENT PLAN: Will continue with current treatment plan TIME SPENT: 20 minutes. Vital Signs Vital Signs Date Time Temp Pulse Resp B/P (MAP) Pulse Ox O2 Delivery O2 Flow Rate FiO2 01/05/21 11:37 Room Air 01/05/21 08:18 72 138/90 01/05/21 07:12 99.0 18 96 Current Medications Current Medications Medications (Trade) Dose Ordered Sig/Dev Route PRN Reason Start Time Stop Time Status Last Admin Dose Admin Acetaminophen (Tylenol Tab) 650 mg Q6HP PRN PO HEADACHE or MILD DISCOMFORT 01/02/21 22:55 Al Hydrox/Mg Hydrox/Simethicone (Mylanta) 30 ml Q4HP PRN PO HEARTBURN/INDIGESTION 01/02/21 22:55 Benztropine Mesylate (Cogentin) 0.5 mg BID PO 01/03/21 09:00 01/05/21 08:18 Calcium Carbonate (Oscal) 500 mg DAILY PO 01/03/21 09:00 01/05/21 08:18 Donepezil HCl (AriCEPT) 10 mg DAILY PO 01/04/21 09:00 01/05/21 08:18 Home Med (Home Med List Complete!) ASDIRECTED XX 01/02/21 23:15 01/02/21 23:16 DC Levothyroxine Sodium (Synthroid) 50 mcg DAILY@0600 PO 01/03/21 06:00 01/05/21 06:34 Lidocaine (Lidoderm Patch) Apply to a patch to R shoul... DAILY TD 01/03/21 09:00 01/05/21 08:16 Lisinopril (Prinivil) 20 mg DAILY PO 01/03/21 09:00 01/05/21 08:19 Lorazepam (Ativan) 1 mg BID PO 01/03/21 09:00 01/05/21 08:16 Magnesium Hydroxide (Milk Of Magnesia) 30 ml DAILYPRN PRN PO CONSTIPATION 01/02/21 22:55 Metoprolol Tartrate (Lopressor) 25 mg BID PO 01/03/21 21:00 01/05/21 08:18 Mirtazapine (Remeron) 7.5 mg QHS PO 01/03/21 21:00 01/04/21 20:02 Non-Formulary Medication ( See Comment Field Below ) REMOVE LIDODERM PATCH DAILY@21 XX 01/03/21 21:00 01/04/21 21:32 Risperidone (RisperDAL) 1 mg DAILY PO 01/04/21 09:00 01/05/21 08:19 Risperidone (RisperDAL) 2 mg QHS PO 01/03/21 21:00 01/04/21 20:02 Trazodone HCl (Desyrel) 50 mg QHSP PRN PO INSOMNIA 01/02/21 22:55 01/03/21 00:52 Trazodone HCl (Desyrel) 50 mg QHSP PRN PO INSOMNIA 01/03/21 14:10 Venlafaxine HCl (Effexor Xr) 150 mg DAILY PO 01/03/21 09:00 01/05/21 08:18 Allergies Coded Allergies: No Known Allergies (Verified , 01/25/18) KYREE NICHOLAS MD Jan 05, 2021 12:20
[2021-01-05 16:24] VITALS: BP 118/75
[2021-01-05] MEDS: **NOTE PATIENT COMMENT** MISC XX SCH (20:11)
[2021-01-05] MEDS: MIRTAZAPINE 7.5MG PER 1/2 TABLET PO SCH (20:15)
[2021-01-05] MEDS: risperiDONE 2 MG TAB PO SCH (20:15)
[2021-01-06] MEDS: LEVOTHYROXINE 50MCG TABLET (0.05MG) PO SCH (06:13)
[2021-01-06 06:59] VITALS: BP 156/74
[2021-01-06] MEDS: LORazepam 1 MG TAB PO SCH (08:38)
[2021-01-06] MEDS: VENLAFAXINE **XR** 75MG CAPSULE PO SCH (08:38)
[2021-01-06] MEDS: LIDOCAINE 5% (LIDODERM) PATCH TD SCH (08:38)
[2021-01-06] MEDS: risperiDONE 1 MG TAB PO SCH (08:38)
[2021-01-06] MEDS: DONEPEZIL 5 MG TAB PO SCH (08:38)
[2021-01-06] MEDS: OYSTER SHELL CALCIUM 500 MG TAB PO SCH (08:38)
[2021-01-06 08:39] VITALS: BP 156/74
[2021-01-06] MEDS: BENZTROPINE 0.5 MG TAB PO SCH (08:39)
[2021-01-06] MEDS: METOPROLOL TART 25 MG TABLET PO SCH (08:39)
[2021-01-06] MEDS ORDERED: TRAZ-252 PO (09:09)
[2021-01-06] MEDS ORDERED: RISP-9 PO (09:09)
[2021-01-06] MEDS ORDERED: RISP-8 PO (09:09)
[2021-01-06] MEDS ORDERED: ATIV1TAB7 PO (09:09)
[2021-01-06] MEDS ORDERED: VENL150C43 PO (09:09)
[2021-01-06] MEDS ORDERED: MIRT-62 PO (09:09)
[2021-01-06] MEDS ORDERED: INVE1.75 IM (09:09)
--- NOTE | 2021-01-06 13:41 | MHDSPDOC ---
[facility] Discharge Summary Discharge Summary DATE OF ADMISSION: Jan 02, 2021 at 22:53 DATE OF DISCHARGE: January 06, 2021 Discharge diagnoses: Reason for admission: Patient is a 65 -year-old , female, with history of schizoaffective disorder, bipolar type, Alzheimer's dementia, self presents with depressed mood, suicidal ideations, reports acute stressor of father passing away in April of this year, mother in May of this year. Feels lonely, isolated living at [facility]'s apartment with her cat alone. When asked about the specific trigger for admission, is vague, reports that she is just depressed, patient is tearful, reports low mood for the last couple weeks, feelings of pervasive guilt, low energy, poor concentration, low appetite, decreased sleep which is "not so good". Patient utilizes walker. When asked about auditory hallucinations states "a long time ago, different people and scary things, I do not know", but states not recently, was confirmed with outside provider for coordination of care with Dr. Pearson/nursing, patient takes benztropine 0.5 mg twice daily, donepezil 10 mg nightly, Effexor 150 mg XR every morning, Invega Trinza 819 mg last dose December 24, 2020, lorazepam 1 mg twice daily, Risperdal 2 mg nightly, Risperdal 1 mg every morning, as needed trazodone 50 mg qhsp. Outside provider has known the patient for approximately 30 years, reports she has done well on these medications, but has concern due to suicidal thoughts of the patient which is a newer behavior, reports the patient has been very compliant with medications, as far she is aware, does not think the patient has intellectual disability. Patient has a tremor which improved when seen again later in the afternoon, likely in context of anxiety symptoms. Patient is alert and oriented x4, there has a diagnosis of dementia made 3 to 4 years ago. Vital signs: See below Consultants involved: See medical H&P by hospitalist Treatment and progress on the unit: Patient was admitted to the [facility] on a 39 legal status and was afforded the following treatment modalities: 1. Individual therapy 2. Group therapy 3. Medication management 4. Milieu therapy 5. Safe environment Hospital course: Patient was admitted to the [facility] on a 39 legal status. Was medically cleared prior to coming up to the [facility]. Patient reported symptoms of depression including low mood, anhedonia, low energy, poor sleep and primarily loneliness in context of living at her apartment [address] since her parents recently within the past year, has dependent on them for the majority of her life per outside provider. Had concerns for living alone, endorsed vague suicidal thoughts, no intent or plan. Patient was initially tearful and labile but affect improved during stay and became jovial, laughing and smiling, aggressive provider have been compliant with home medications. P ronaldo was restarted on home medications including Risperdal 1 mg p.o. daily, 2 mg nightly, 819 mg every 3-month Invega Trinza last given December 24, benztropine 0.5 mg twice daily, donepezil 10 mg nightly, Effexor 150 mg XR every morning, lorazepam 1 mg twice daily, as needed trazodone 50 mg qhsp, mirtazapine 7.5 mg nightly, which were confirmed per collateral Dr. Pearson (outside provider) and patient. She also continued on home metoprolol and lisinopril for elevated blood pressure. Patient found medications beneficial and tolerated them well, without side effects. Mood, anxiety and intrusive thoughts improved with treatment. Patient attended multiple groups daily during stay. Patient symptoms improved with treatment. On day of discharge patient denied depression, anxiety, insomnia, suicidal or homicidal ideations intent or plan, hallucinations, delusions. Patient was discharged home with follow-up. Patient felt safe for discharge. Patient endorsed some mild anxiety, which she reports usually occurs when she discharges, but endorsed feeling safe to leave, no acute safety concerns. Discharge assessment: On today's interview patient is alert and oriented, dressed appropriately. Hygiene and grooming is well-kept. Smiles, laughs on approach and is pleasant and engaged on interview. Denies depression and anxiety. Denies suicidal or homicidal ideation, intent or planning. Denies and is not observed with vicky or psychotic symptoms of delusions, hallucinations, bizarre thinking, obsessions, paranoia, ruminations, illogical thoughts, flight of ideas or having poor insight or judgment. Patient has normal mentation, declines further hospitalization on voluntary status and meets criteria for discharge today, patient encouraged to return the hospital if symptoms worsen or change and encouraged to call unit if they feel they need provider's questions to be answered or help with medications or care. Patient looks forward to seeing her cat and having improved food compared to the inpatient unit, social work was able to arrange to have a drug safety assistant come visit her 5 days a week due to the loneliness and isolation ensure she takes her medications. Patient educated to follow-up with medical provider, can be addressed with outside psychiatrist and ensure she has follow-up. Mental status: General Appearance: well groomed Build: overweight Demeanor: Mildly anxious, Eye Contact: Good Activity: slowed, mildly anxious Behavior: cooperative, future oriented Speech: clear, spontaneous, slowed at baseline Mood "a little nervous but good" Affect: constricted, labile, anxious, other (Tearful) Thought Process: logical/linear, concrete, depressed, slow Thought Content (Delusions): none reported Thought Content (Other): Denies suicidal ideations, intent or plan. Denies homicidal ideations, intent or plan. Thought Content (Aggressive): none reported Perception (Hallucinations): none reported Perception (Other): none reported Cognition (Impairment of): memory, attention/concentration in context of neurocognitive disorder Cognition(Intelligence Est.): borderline Oriented: Awake, Alert, Oriented times three Insight: Limited Judgment: Fair Psychosis: Denies Medications on discharge: see medication reconciliation: CSSRS on discharge: Wish to be : No nonspecific active suicidal thoughts: No lifetime attempts: 1 time per chart review interrupted attempts: 0 aborted attempts: 0 preparatory acts or behavior: None Protective factors: Increased support with drug safety assistant visit patient 5 days a week, compliant on stable medication regime, long-term outpatient provider whom she has good relationship with and therapist whom she plans to see, future oriented, has a cat she cares for dearly. Taking into consideration safety state, status, modifiable, non-modifiable risk factors patient is at low risk on discharge for suicide according to [place] suicide evaluation. PLAN/FOLLOWUP ARRANGEMENTS: Follow Up Care Education Label * Mental Health Appt 1 * Mental Health [facility] * Established With This Provider Yes * Therapist FLO * Date Jan 08, 2021 * Time 13:00 * Address of Clinic or Practice [address] [place] [address] * Follow Up Care Education Label * Mental Health Appt 2 * Mental [facility] * Established With This Provider Yes * Therapist DR. PEARSON * Date Jan 20, 2021 * Time 11:00 * Address of Clinic or Practice [address] [place] [address] * Follow Up Care Education Label * Medical * Additional information PATIENT DECLINED MEDICAL FOLLOW UP. The amount of time spent in the coordination of care for this patient was approximately 40 minutes. ETOH/Disorder Med Rx ETOH/DRUG DISORDER RX: Offrd @ d/c & pt refused, N/A Vital Signs/I&Os Vital Signs Date Time Temp Pulse Resp B/P (MAP) Pulse Ox O2 Delivery O2 Flow Rate FiO2 01/06/21 08:39 156/74 01/06/21 08:39 102 01/06/21 06:59 98.3 20 98 Room Air Medications Scheduled Benztropine Mesylate (Benztropine Mesylate) 0.5 Mg Tablet, 0.5 MG PO BID, (Reported) Calcium Carbonate (Calcium) 500 Mg Tablet, 500 MG PO DAILY, (Reported) Cholecalciferol (Vitamin D3) (Vitamin D3) 50 Mcg Capsule, 50 MCG PO DAILY, (R eported) Diclofenac Sodium (Diclofenac Sodium) 50 Mg Tablet.dr, 50 MG PO BID, (Reported) Donepezil HCl (Donepezil HCl) 10 Mg Tablet, 10 MG PO QHS, (Reported) Levothyroxine Sodium (Synthroid) 50 Mcg Tablet, 50 MCG PO DAILY, (Reported) Lisinopril (Lisinopril) 20 Mg Tablet, 20 MG PO DAILY, (Reported) Lorazepam (Ativan) 1 Mg Tablet, 1 MG PO BID for anxiety, #14 Metoprolol Tartrate (Metoprolol Tartrate) 25 Mg Tablet, 25 MG PO BID, (Reported) Mirtazapine (Remeron) 15 Mg Tablet, 7.5 MG PO QHS for sleep, #4 Multivitamins (Thera M Plus Tablet) 1 Each Tablet, 1 TAB PO DAILY, (Reported) Paliperidone Palmitate (Invega Trinza) 819 Mg/2.625 Ml Syringe, 819 MG IM Q3M for psychosis, #1 Risperidone (Risperidone) 1 Mg Tablet, 1 MG PO DAILY for psychosis, #7 Risperidone (Risperidone) 2 Mg Tablet, 2 MG PO QHS for psychosis, #7 Trazodone HCl (Trazodone HCl) 50 Mg Tablet, 50 MG PO QHS for insomnia, #7 Venlafaxine HCl (Venlafaxine HCl ER) 150 Mg Cap.er.24h, 150 MG PO DAILY for depression, #7 Allergies Coded Allergies: No Known Allergies (Verified , 01/25/18) DEJA MONTEZ MD Jan 06, 2021 13:41
== END 2021-01-06 13:46 | disposition home or self-care (01) | DRG 885 ==
LOC: M ED 16:22 → M ED INP 22:53 → M PSY 23:41
PROVIDERS: ADMIT Student in an Organized Health Care Education/Training Program; ATTEND Student in an Organized Health Care Education/Training Program
DX: F25.0 Schizoaffective disorder, bipolar type (principal); R45.851 Suicidal ideations; G30.9 Alzheimer's disease, unspecified; F02.80 Dementia in other diseases classified elsewhere, unspecified severity, without behavioral disturbance, psychotic disturbance, mood disturbance, and anxiety; J45.20 Mild intermittent asthma, uncomplicated; E66.01 Morbid (severe) obesity due to excess calories; Z20.822 Contact with and (suspected) exposure to COVID-19; Z79.899 Other long term (current) drug therapy; H52.209 Unspecified astigmatism, unspecified eye

== ENCOUNTER 2021-02-16 17:37 | Inpatient (IN) | payer MEDICARE, OTHER ==
[~2021-02-16] VITALS: Ht 142.2 cm; Wt 77.0 kg
[~2021-02-16 17:37] MED LIST changes: +OYST1TAB PO; +VITA200016 PO
--- OUTSIDE RECORDS SUMMARY | 2021-02-16 17:47 | CCD ---
Author Author [facility] Organization [facility] Address Unknown Phone Unavailable Care Team Providers Care Digital Art Director Name Role Phone DRAZEK, I DANIELLE PA [...] is protected by Article 27-F of the [facility] Public Health law. If you continue you may have access to information: Regarding HIV / AIDS; Provided by facilities licensed or operated by the [facility] Office of Mental Health; or Provided by the [facility] Office for People With Developmental Disabilities. If such information is present, then the following [facility] mandated warning applies: This information has been [...] law may result in a fine or residential sentence or both. A general authorization for the release of medical or other information is NOT sufficient authorization for further disc losure. Family History Family Member Name Family Member Gender Family Member Status Date o f Status Description Data Source(s) Unknown Unknown Problem MEDENT ([facility]) Unknown Female Problem MEDENT ([facility] Encounters Encounter Providers Location Date Indications Data Source(s ) Unknown [address] [facility] [address] 02/14/2021 12:00:00 AM EST eCW1 ([facility]) [place] [address] [facility] [address] 02/12/2021 12:00:00 AM EST eCW1 ([facility]) [place] [address] [facility] [address] 01/22/2021 12:00:00 AM EST eCW1 ([facility]) Unknown [address] [facility] [place] [address] 12/24/2020 12:00:00 AM EDT eCW1 ([facility]) Unknown [address] [facility] [address] 12/23/2020 12:00:00 AM EDT eCW1 ([facility]) Outpatient [address] [facility] [place] [address] 12/06/2020 12:00:00 AM EDT eCW1 ([facility]) Unknown [address] [facility] [address] 11/26/2020 12:00:00 AM EDT eCW1 ([facility]) Unknown [address] [facility] [address] 11/19/2020 12:00:00 AM EDT eCW1 ([facility]) [place]patient [address] [facility] [place] [address] 11/14/2020 12:00:00 AM EDT eCW1 ([facility]) Office Visit Attender: DANIELLE SHORT Physical Therapy 2020 11:00:00 AM EDT MEDENT ([facility]) Unknown [address] [facility] [address] 10/08/2020 12:00:00 AM EDT eCW1 ([facility]) Unknown [address] [facility] [address] 09/24/2020 12:00:00 AM EDT eCW1 ([facility]) Unknown [address] [facility] [address] 09/24/2020 12:00:00 AM EDT eCW1 ([facility]) Unknown [address] [facility] [address] 09/11/2020 12:00:00 AM EDT eCW1 ([facility]) Outpatient [address] [facility] [address] 09/03/2020 12:00:00 AM EDT eCW1 ([facility]) Unknown [address] [facility] [address] 09/03/2020 12:00:00 AM EDT eCW1 ([facility]) Unknown [address] [facility] [address] 08/29/2020 12:00:00 AM EDT eCW1 ([facility]) OFFICE OUTPATIENT VISIT 15 MINUTES Attender: DANIELLE SHORT Phys ical Therapy 08/28/2020 04:30:00 PM EDT MEDENT ([facility]) Unknown [address] [facility] [address] 08/20/2020 12:00:00 AM EDT eCW1 ([facility]) Office Visit, Est Pt., Level 4 PC [address] [place] [address] 08/12/2020 12:00:00 AM EDT eCW1 ([facility]) Unknown [address] [facility] [address] 07/25/2020 12:00:00 AM EDT eCW1 ([facility]) Unknown [address] [facility] [address] 07/09/2020 12:00:00 AM EDT eCW1 ([facility]) Unknown [address] [facility] [address] 06/24/2020 12:00:00 AM EDT eCW1 ([facility]) Unknown [address] [facility] [address] 06/13/2020 12:00:00 AM EDT eCW1 ([facility]) Unknown [address] [facility] [address] 06/03/2020 12:00:00 AM EDT eCW1 ([facility]) Office Visit Attender: DANIELLE SHORT Physical Therapy 2020 01:20:00 PM EDT MEDENT ([facility]) Outpatient Attender: DANIELLE SHORT Physical Therapy 04/26/2020 0 2:30:00 PM EST MEDENT ([facility]) Unknown [address] [facility] [address] 04/23/2020 12:00:00 AM EST eCW1 ([facility]) Outpatient [address] [facility] [place] [address] 04/19/2020 12:00:00 AM EST eCW1 ([facility]) Unknown [address] [facility] [address] 04/18/2020 12:00:00 AM EST eCW1 ([facility]) Outpatient [address] [facility] [address] 03/14/2020 12:00:00 AM EST eCW1 ([facility]) Outpatient [address] [facility] [address] 03/06/2020 12:00:00 AM EST eCW1 ([facility]) OFFICE OUTPATIENT VISIT 15 MINUTES Attender: DANIELLE SHORT Phys ical Therapy 02/22/2020 08:00:00 AM EST MEDENT ([facility]) Unknown [address] [facility] [address] 02/22/2020 12:00:00 AM EST eCW1 ([facility]) Outpatient [address] [facility] [address] 01/17/2020 12:00:00 AM EST eCW1 ([facility]) Unknown [address] [facility] [address] 01/17/2020 12:00:00 AM EST [facility] [address] [facility] [address] 01/11/2020 12:00:00 AM EST eCW1 ([facility]) Outpatient [address] [facility] [address] 01/04/2020 12:00:00 AM EDT eCW1 [facility]) Unknown [address] [facility] [address] 01/04/2020 12:00:00 AM EDT eCW1 ([facility]) Unknown [address] [facility] [address] 01/03/2020 12:00:00 AM EDT eCW1 ([facility]) Unknown [address] [facility] [address] 01/02/2020 12:00:00 AM EDT eCW1 ([facility]) Outpatient [address] [facility] [address] 12/25/2019 12:00:00 AM EDT [facility] [address] [facility] [address] 12/21/2019 12:00:00 AM EDT eCW1 ([facility]) Immunizations Vaccine Date Status Description Data Source(s) COVID-19 VACCINE Moderna 02/06/2021 12:00:00 AM EST completed [facility] Vaccine Series Complete: YESThis Data wa s Submitted to [facility] Via [employer]. COVID-19 VACCINE Moderna 06/18/2020 12:00:00 AM EDT completed [facility] Vaccine Series Complete: YESThis Data wa s Submitted to [facility] Via [employer]. COVID-19 VACCINE, MRNA-1273, LNP-S (MODERNA)/PF 06/18/2020 1 2:00:00 AM EDT completed [facility] COVID-19 VACCINE Moderna 05/25/2020 12:00:00 AM EDT completed [facility] Vaccine Series Complete: NOThis Data was Submitted to [facility] Via [employer]. COVID-19 VACCINE, MRNA-1273, LNP-S (MODERNA)/PF 05/25/2020 1 2:00:00 AM EDT completed [facility] influenza, recombinant, quadrIvalent,injectable, prese rvative free 12/21/2019 04:01:00 PM EDT completed eCW1 ([facility]) influenza, recombinant, quadrIvalent,injectable, prese rvative free 12/21/2019 04:01:00 PM EDT completed eCW1 ([facility]) influenza, recombinant, quadrIvalent,injectable, prese rvative free 12/21/2019 04:01:00 PM EDT completed eCW1 ([facility]) influenza, recombinant, quadrIvalent,injectable, prese rvative free 12/21/2019 04:01:00 PM EDT completed eCW1 ([facility]) influenza, recombinant, quadrIvalent,injectable, prese rvative free 12/21/2019 04:01:00 PM EDT completed eCW1 ([facility]) influenza, recombinant, quadrIvalent,injectable, prese rvative free 12/21/2019 04:01:00 PM EDT completed eCW1 ([facility]) influenza, recombinant, quadrIvalent,injectable, prese rvative free 12/21/2019 04:01:00 PM EDT completed eCW1 ([facility]) influenza, recombinant, quadrIvalent,injectable, prese rvative free 12/21/2019 04:01:00 PM EDT completed eCW1 ([facility]) influenza, recombinant, quadrIvalent,injectable, prese rvative free 12/21/2019 04:01:00 PM EDT completed eCW1 ([facility]) influenza, recombinant, quadrIvalent,injectable, prese rvative free 12/21/2019 04:01:00 PM EDT completed eCW1 ([facility]) influenza, recombinant, quadrIvalent,injectable, prese rvative free 12/21/2019 04:01:00 PM EDT completed eCW1 ([facility]) influenza, recombinant, quadrIvalent,injectable, prese rvative free 12/21/2019 04:01:00 PM EDT completed eCW1 ([facility]) influenza, recombinant, quadrIvalent,injectable, prese rvative free 12/21/2019 04:01:00 PM EDT completed eCW1 ([facility]) influenza, recombinant, quadrIvalent,injectable, prese rvative free 12/21/2019 04:01:00 PM EDT completed eCW1 ([facility]) influenza, recombinant, quadrIvalent,injectable, prese rvative free 12/21/2019 04:01:00 PM EDT completed eCW1 ([facility]) influenza, recombinant, quadrIvalent,injectable, prese rvative free 12/21/2019 04:01:00 PM EDT completed eCW1 ([facility]) influenza, recombinant, quadrIvalent,injectable, prese rvative free 12/21/2019 04:01:00 PM EDT completed eCW1 ([facility]) influenza, recombinant, quadrIvalent,injectable, prese rvative free 12/21/2019 04:01:00 PM EDT completed eCW1 ([facility]) influenza, recombinant, quadrIvalent,injectable, prese rvative free 12/21/2019 04:01:00 PM EDT completed eCW1 ([facility]) influenza, recombinant, quadrIvalent,injectable, prese rvative free 12/21/2019 04:01:00 PM EDT completed eCW1 ([facility]) influenza, recombinant, quadrIvalent,injectable, prese rvative free 12/21/2019 04:01:00 PM EDT completed eCW1 ([facility]) influenza, recombinant, quadrIvalent,injectable, prese rvative free 12/21/2019 04:01:00 PM EDT completed eCW1 ([facility]) influenza, recombinant, quadrIvalent,injectable, prese rvative free 12/21/2019 04:01:00 PM EDT completed eCW1 ([facility]) influenza, recombinant, quadrIvalent,injectable, prese rvative free 12/21/2019 04:01:00 PM EDT completed eCW1 ([facility]) influenza, recombinant, quadrIvalent,injectable, prese rvative free 12/21/2019 04:01:00 PM EDT completed eCW1 ([facility]) influenza, recombinant, quadrIvalent,injectable, prese rvative free 12/21/2019 04:01:00 PM EDT completed eCW1 ([facility]) influenza, recombinant, quadrIvalent,injectable, prese rvative free 12/21/2019 04:01:00 PM EDT completed eCW1 ([facility]) influenza, recombinant, quadrIvalent,injectable, prese rvative free 12/21/2019 04:01:00 PM EDT completed eCW1 ([facility]) influenza, recombinant, quadrIvalent,injectable, prese rvative free 12/21/2019 04:01:00 PM EDT completed eCW1 ([facility]) influenza, recombinant, quadrIvalent,injectable, prese rvative free 12/21/2019 04:01:00 PM EDT completed eCW1 ([facility]) influenza, recombinant, quadrIvalent,injectable, prese rvative free 12/21/2019 04:01:00 PM EDT completed eCW1 ([facility]) influenza, recombinant, quadrIvalent,injectable, prese rvative free 12/21/2019 04:01:00 PM EDT completed eCW1 ([facility]) influenza, recombinant, quadrIvalent,injectable, prese rvative free 12/21/2019 04:01:00 PM EDT completed eCW1 ([facility]) influenza, recombinant, quadrIvalent,injectable, prese rvative free 12/21/2019 04:01:00 PM EDT completed eCW1 ([facility]) influenza, recombinant, quadrIvalent,injectable, prese rvative free 12/21/2019 04:01:00 PM EDT completed eCW1 ([facility]) influenza, recombinant, quadrIvalent,injectable, prese rvative free 12/21/2019 04:01:00 PM EDT completed eCW1 ([facility]) influenza, recombinant, quadrIvalent,injectable, prese rvative free 12/21/2019 04:01:00 PM EDT completed eCW1 ([facility]) influenza, recombinant, quadrIvalent,injectable, prese rvative free 12/21/2019 04:01:00 PM EDT completed eCW1 ([facility]) influenza, recombinant, quadrIvalent,injectable, prese rvative free 12/21/2019 04:01:00 PM EDT completed eCW1 ([facility]) Medications Medication Brand Name Start Date Product Form Dose Route Admi nistrative Instructions Pharmacy Instructions Status Indications Reaction Description Data Source(s) 100 mcg/0.5 mL 02/06/2021 12:00:00 AM EST suspension 0 INJECT DIRECTED (THIRD DOSE) INJECT DIRECTED (THIRD DOSE) SOLD: 02/06/2021 [facility] 819 mg/2.625 mL 12/14/2020 12:00:00 AM EDT syringe 2 INJECT 1 SYRINGE INTRAMUSCULARLY FOR A SINGLE DOSE ONCE EVERY 3 MONTHS INJECT 1 SYRINGE INTRAMUSCULARLY FOR A SINGLE DOSE ONCE EVERY 3 MONTHS SOLD: 12/20/2020 [facility] Bath/Shower Seat - Bath/Shower Seat - 08/30/2020 12:00:00 AM EDT active Bath/Shower Seat - eCW1 ([facility]) Hand Held [facility]ower [place] - Hand Held [facility] [place] - 08/30/2020 12:00: 00 AM EDT active [facility] [place] - eCW1 ([facility]) Bath/Shower Seat - Bath/Shower Seat - 08/30/2020 12:00:00 AM EDT active Bath/Shower Seat - eCW1 ([facility]) Bath/Shower Seat - Bath/Shower Seat - 08/30/2020 12:00:00 AM EDT active Bath/Shower Seat - eCW1 ([facility]) [facility] Grab [facility] - [facility] Grab [facility] - 08/30/2020 12:00:00 AM EDT active [facility] - eCW1 ([facility]) Hand Held Shower [place] - Hand Held [facility] [place] - 08/30/2020 12:00: 00 AM EDT active [facility] [place] - eCW1 ([facility]) Hand Held Shower [place] - Hand Held [facility]ower [place] - 08/30/2020 12:00: 00 AM EDT active [facility] [place] - eCW1 ([facility]) Hand Held Shower [place] - Hand Held [facility]ower [place] - 08/30/2020 12:00: 00 AM EDT active [facility] [place] - eCW1 ([facility]) Hand Held Shower [place] - Hand Held [facility] [place] - 08/30/2020 12:00: 00 AM EDT active [facility] [place] - eCW1 ([facility]) [facility] - [facility] - 08/30/2020 12:00:00 AM EDT active [facility] - eCW1 ([facility]) [facility] Grab [facility] - [facility] - 08/30/2020 12:00:00 AM EDT active [facility] - eCW1 ([facility]) Hand Held Shower [place] - Hand Held [facility]ower [place] - 08/30/2020 12:00: 00 AM EDT active [facility] [place] - eCW1 ([facility]) Bath/Shower Seat - Bath/Shower Seat - 08/30/2020 12:00:00 AM EDT active Bath/Shower Seat - eCW1 ([facility]) Bath/Shower Seat - Bath/Shower Seat - 08/30/2020 12:00:00 AM EDT active Bath/Shower Seat - eCW1 ([facility]) Hand Held Shower [place] - Hand Held [facility]ower [place] - 08/30/2020 12:00: 00 AM EDT active Hand Held [facility] [place] - eCW1 ([facility]) [facility] - [facility] - 08/30/2020 12:00:00 AM EDT active [facility] - eCW1 ([facility]) [facility] - [facility] - 08/30/2020 12:00:00 AM EDT active [facility] - eCW1 ([facility]) Bath/Shower Seat - Bath/Shower Seat - 08/30/2020 12:00:00 AM EDT active Bath/Shower Seat - eCW1 ([facility]) Bath/Shower Seat - Bath/Shower Seat - 08/30/2020 12:00:00 AM EDT active Bath/Shower Seat - eCW1 ([facility]) Hand Held Shower [place] - Hand Held [facility] [place] - 08/30/2020 12:00: 00 AM EDT active [facility] [place] - eCW1 ([facility]) Hand Held Shower [place] - Hand Held [facility] [place] - 08/30/2020 12:00: 00 AM EDT active [facility] Hel[facility] [place] - eCW1 ([facility]) [facility] - [facility] - 08/30/2020 12:00:00 AM EDT active [facility] - eCW1 ([facility]) [facility] - [facility] - 08/30/2020 12:00:00 AM EDT active [facility] - eCW1 ([facility]) Hand Held Shower [place] - Hand Held [facility] [place] - 08/30/2020 12:00: 00 AM EDT active [facility] [place] - eCW1 ([facility]) Hand Held Shower [place] - Hand Held [facility]ower [place] - 08/30/2020 12:00: 00 AM EDT active Hand Hel[facility] [place] - eCW1 ([facility]) [facility] - [facility] - 08/30/2020 12:00:00 AM EDT active [facility] - eCW1 ([facility]) Bath/Shower Seat - Bath/Shower Seat - 08/30/2020 12:00:00 AM EDT active Bath/Shower Seat - eCW1 ([facility]) [facility] Grab [facility] - [facility] Grab [facility] - 08/30/2020 12:00:00 AM EDT active [facility] - eCW1 ([facility]) Wall Grab [facility] - [facility] Grab [facility] - 08/30/2020 12:00:00 AM EDT active [facility] - eCW1 ([facility]) Bath/Shower Seat - Bath/Shower Seat - 08/30/2020 12:00:00 AM EDT active Bath/Shower Seat - eCW1 ([facility]) Bath/Shower Seat - Bath/Shower Seat - 08/30/2020 12:00:00 AM EDT active Bath/Shower Seat - eCW1 ([facility]) Wall Grab [facility] - Wall Grab [facility] - 08/30/2020 12:00:00 AM EDT active [facility] - eCW1 ([facility]) Bath/Shower Seat - Bath/Shower Seat - 08/30/2020 12:00:00 AM EDT active Bath/Shower Seat - eCW1 ([facility]) [facility] Grab [facility] - [facility] Grab [facility] - 08/30/2020 12:00:00 AM EDT active [facility] - eCW1 ([facility]) Wall Grab [facility] - [facility] Grab [facility] - 08/30/2020 12:00:00 AM EDT active [facility] - eCW1 ([facility]) Hand Held Shower [place] - Hand Held [facility]ower [place] - 08/30/2020 12:00: 00 AM EDT active Hand Held [facility] [place] - eCW1 ([facility]) Wall Grab [facility] - [facility] Grab [facility] - 08/30/2020 12:00:00 AM EDT active [place] [facility] - eCW1 ([facility]) Hand Held Shower [place] - Hand Held [facility]ower [place] - 08/30/2020 12:00: 00 AM EDT active Hand [facility] [place] - eCW1 ([facility]) Hand Held Shower [place] - Hand Held Shower [place] - 08/30/2020 12:00: 00 AM EDT active Hand Held [facility] [place] - eCW1 ([facility]) Bath/Shower Seat - Bath/Shower Seat - 08/30/2020 12:00:00 AM EDT active Bath/Shower Seat - eCW1 ([facility]) Bath/Shower Seat - Bath/Shower Seat - 08/30/2020 12:00:00 AM EDT active Bath/Shower Seat - eCW1 ([facility]) Hand Held Shower [place] - Hand Held Shower [place] - 08/30/2020 12:00: 00 AM EDT active Hand Held [facility] [place] - eCW1 ([facility]) Bath/Shower Seat - Bath/Shower Seat - 08/30/2020 12:00:00 AM EDT active Bath/Shower Seat - eCW1 ([facility]) Wall Grab [facility] - Wall Grab [facility] - 08/30/2020 12:00:00 AM EDT active [facility] - eCW1 ([facility]) Bath/Shower Seat - Bath/Shower Seat - 08/30/2020 12:00:00 AM EDT active Bath/Shower Seat - eCW1 ([facility]) [facility] Grab [facility] - [facility] Grab [facility] - 08/30/2020 12:00:00 AM EDT active [facility] - eCW1 ([facility]) Hand Held Shower [place] - Hand Held [facility] [place] - 08/30/2020 12:00: 00 AM EDT active Hand Held [facility] [place] - eCW1 ([facility]) Wall Grab [facility] - [facility] Grab [facility] - 08/30/2020 12:00:00 AM EDT active [place] [facility] - eCW1 ([facility]) Hand Held Shower [place] - Hand Held [facility] [place] - 08/30/2020 12:00: 00 AM EDT active Hand Held [facility] [place] - eCW1 ([facility]) Bath/Shower Seat - Bath/Shower Seat - 08/30/2020 12:00:00 AM EDT active Bath/Shower Seat - eCW1 ([facility]) Bath/Shower Seat - Bath/Shower Seat - 08/30/2020 12:00:00 AM EDT active Bath/Shower Seat - eCW1 ([facility]) Diclofenac Sodium 50 MG Delayed Release Oral Tablet Diclofen ac Sodium 50 MG 01/17/2020 12:00:00 AM EST 1.0 {tablet} active Diclofenac Sodium 50 MG eCW1 ([facility]) Diclofenac Sodium 50 MG Delayed Release Oral Tablet Diclofen ac Sodium 50 MG 01/17/2020 12:00:00 AM EST 1.0 {tablet} active Diclofenac Sodium 50 MG eCW1 ([facility]) Diclofenac Sodium 50 MG Delayed Release Oral Tablet Diclofen ac Sodium 50 MG 01/17/2020 12:00:00 AM EST 1.0 {tablet} active Diclofenac Sodium 50 MG eCW1 ([facility]) Diclofenac Sodium 50 MG Delayed Release Oral Tablet Diclofen ac Sodium 50 MG 01/17/2020 12:00:00 AM EST 1.0 {tablet} active Diclofenac Sodium 50 MG eCW1 ([facility]) Diclofenac Sodium 50 MG Delayed Release Oral Tablet Diclofen ac Sodium 50 MG 01/17/2020 12:00:00 AM EST 1.0 {tablet} active Diclofenac Sodium 50 MG eCW1 ([facility]) Diclofenac Sodium 50 MG Delayed Release Oral Tablet Diclofen ac Sodium 50 MG 01/17/2020 12:00:00 AM EST 1.0 {tablet} active Diclofenac Sodium 50 MG eCW1 ([facility]) Diclofenac Sodium 50 MG Delayed Release Oral Tablet Diclofen ac Sodium 50 MG 01/17/2020 12:00:00 AM EST 1.0 {tablet} active Diclofenac Sodium 50 MG eCW1 ([facility]) Diclofenac Sodium 50 MG Delayed Release Oral Tablet Diclofen ac Sodium 50 MG 01/17/2020 12:00:00 AM EST 1.0 {tablet} active Diclofenac Sodium 50 MG eCW1 ([facility]) Diclofenac Sodium 50 MG Delayed Release Oral Tablet Diclofen ac Sodium 50 MG 01/17/2020 12:00:00 AM EST 1.0 {tablet} active Diclofenac Sodium 50 MG eCW1 ([facility]) Diclofenac Sodium 50 MG Delayed Release Oral Tablet Diclofen ac Sodium 50 MG 01/17/2020 12:00:00 AM EST 1.0 {tablet} active Diclofenac Sodium 50 MG eCW1 ([facility]) Diclofenac Sodium 50 MG Delayed Release Oral Tablet Diclofen ac Sodium 50 MG 01/17/2020 12:00:00 AM EST 1.0 {tablet} active Diclofenac Sodium 50 MG eCW1 ([facility]) Diclofenac Sodium 50 MG Delayed Release Oral Tablet Diclofen ac Sodium 50 MG 01/17/2020 12:00:00 AM EST 1.0 {tablet} active Diclofenac Sodium 50 MG eCW1 ([facility]) Diclofenac Sodium 50 MG Delayed Release Oral Tablet Diclofen ac Sodium 50 MG 01/17/2020 12:00:00 AM EST 1.0 {tablet} active Diclofenac Sodium 50 MG eCW1 ([facility]) Diclofenac Sodium 50 MG Delayed Release Oral Tablet Diclofen ac Sodium 50 MG 01/17/2020 12:00:00 AM EST 1.0 {tablet} active Diclofenac Sodium 50 MG eCW1 ([facility]) Diclofenac Sodium 50 MG Delayed Release Oral Tablet Diclofen ac Sodium 50 MG 01/17/2020 12:00:00 AM EST 1.0 {tablet} active Diclofenac Sodium 50 MG eCW1 ([facility]) Diclofenac Sodium 50 MG Delayed Release Oral Tablet Diclofen ac Sodium 50 MG 01/17/2020 12:00:00 AM EST 1.0 {tablet} active Diclofenac Sodium 50 MG eCW1 ([facility]) Diclofenac Sodium 50 MG Delayed Release Oral Tablet Diclofen ac Sodium 50 MG 01/17/2020 12:00:00 AM EST 1.0 {tablet} active Diclofenac Sodium 50 MG eCW1 ([facility]) Diclofenac Sodium 50 MG Delayed Release Oral Tablet Diclofen ac Sodium 50 MG 01/17/2020 12:00:00 AM EST 1.0 {tablet} active Diclofenac Sodium 50 MG eCW1 ([facility]) Diclofenac Sodium 50 MG Delayed Release Oral Tablet Diclofen ac Sodium 50 MG 01/17/2020 12:00:00 AM EST 1.0 {tablet} active Diclofenac Sodium 50 MG eCW1 ([facility]) Diclofenac Sodium 50 MG Delayed Release Oral Tablet Diclofen ac Sodium 50 MG 01/17/2020 12:00:00 AM EST 1.0 {tablet} active Diclofenac Sodium 50 MG eCW1 ([facility]) Diclofenac Sodium 50 MG Delayed Release Oral Tablet Diclofen ac Sodium 50 MG 01/17/2020 12:00:00 AM EST 1.0 {tablet} active Diclofenac Sodium 50 MG eCW1 ([facility]) Diclofenac Sodium 50 MG Delayed Release Oral Tablet Diclofen ac Sodium 50 MG 01/17/2020 12:00:00 AM EST 1.0 {tablet} active Diclofenac Sodium 50 MG eCW1 ([facility]) Diclofenac Sodium 50 MG Delayed Release Oral Tablet Diclofen ac Sodium 50 MG 01/17/2020 12:00:00 AM EST 1.0 {tablet} active Diclofenac Sodium 50 MG eCW1 ([facility]) Diclofenac Sodium 50 MG Delayed Release Oral Tablet Diclofen ac Sodium 50 MG 01/17/2020 12:00:00 AM EST 1.0 {tablet} active Diclofenac Sodium 50 MG eCW1 ([facility]) Diclofenac Sodium 50 MG Delayed Release Oral Tablet Diclofen ac Sodium 50 MG 01/17/2020 12:00:00 AM EST 1.0 {tablet} active Diclofenac Sodium 50 MG eCW1 ([facility]) Diclofenac Sodium 50 MG Delayed Release Oral Tablet Diclofen ac Sodium 50 MG 01/17/2020 12:00:00 AM EST 1.0 {tablet} active Diclofenac Sodium 50 MG eCW1 ([facility]) Insurance Providers Payer name Policy type / Coverage type Policy ID Covered alliance party ID Covered alliance party's relationship to paige Policy Paige Plan Information MEDICARE [id number] SP [id number] A MEDICARE [id number] SP [id number] A MEDICAID [id number] SP [id number] MEDICAID M [id number] Self [id number] HUMANA MEDICARE ADVANTAGE G [id number] Self [id number] AETNA MEDICARE [id number] SP [id number] MEDICARE [id number] SP [id number] HUMANA GOLD [id number] SP [id number] EMEDNY [id number] SP [id number] WELLCARE [id number] SP [id number] HUMANA GOLD O [id number] S [id number] MEDICAID M [id number] S [id number] MEDICARE C [id number] S [id number] MEDICAID [id number] SP [id number] ANSI-Medicaid [id number] ANSI-Medicare Part B [id number] ANSI-Medicare Part B [id number] ANSI-Medicaid [id number] ANSI-Medicaid [id number] ANSI-Medicare Part B [id number] ANSI-Medicare Part B [id number] ANSI-Medicaid [id number] ANSI-Medicaid [id number] ANSI-Medicare Part B [id number] ANSI-Medicare Part B [id number] ANSI-Medicaid [id number] ANSI-Medicare Part B [id number] [facility]-Medicaid [id number] ANSI-Medicaid [id number] ANSI-Medicare Part B [id number] ANSI-Medicaid [id number] ANSI-Medicare Part B [id number] ANSI-Medicaid [id number] ANSI-Medicare Part B [id number] ANSI-Medicaid [id number] ANSI-Medicare Part B [id number] ANSI-Medicaid [id number] ANSI-Medicare Part B [id number] ANSI-Medicaid [id number] ANSI-Medicare Part B [id number] ANSI-Medicaid [id number] ANSI-Medicare Part B [id number] ANSI-Medicaid [id number] ANSI-Medicare Part B [id number] ANSI-Medicaid [id number] ANSI-Medicare Part B [id number] ANSI-Medicare Part B [id number] ANSI-Medicaid [id number] ANSI-Medicare Part B [id number] ANSI-Medicaid [id number] MEDICARE [id number] SP [id number] A Medicaid [facility] Part B [id number] Self [id number] Medicare [facility] Medicare Primary [id number] Self [id number] ANSI-Medicare Part B [id number] ANSI-Medicaid [id number] ANSI-Medicare Part B [id number] ANSI-Medicaid [id number] ANSI-Medicaid [id number] ANSI-Medicare Part B [id number] ANSI-Medicare Part B [id number] ANSI-Medicaid [id number] ANSI-Medicaid [id number] ANSI-Medicare Part B [id number] ANSI-Medicaid [id number] ANSI-Medicare Part B [id number] ANSI-Medicare Part B [id number] [facility]-Medicaid [id number] MEDICARE C [id number] S [id number] A Medicaid Medicaid [id number] S elf [id number] Medicare Medicare Primary [id number] Self [id number] MEDICAID [id number] SP [id number] Medicaid Medicaid [id number] Self Medicare Medicare Primary [id number] Self BALAJI [id number] SP [id number] AETNA MEDICARE [id number] SP 10 [id number] [facility] MEDICAID [id number] SP [id number] HUMANA GOLD [id number] SP [id number] BALAJI [id number] SP [id number] AETNA MEDICARE [id number] SP [id number] MEDICARE [id number] SP [id number] Problems, Conditions, and Diagnoses Code Display Name Description Problem Type Effective Dates Data Source(s) R20.2 [id number] Paresthesia of both feet Problem 08/12/2020 12:00:00 AM EDT eCW1 ([facility]) Surgeries/Procedures Procedure Description Date Indications Data Source(s) PHYSICIAN TELEPHONE EVALUATION 5-10 MIN 11/05/2020 12: 00:00 AM EDT MEDENT ([facility]) OFFICE OUTPATIENT VISIT 15 MINUTES 11/05/2020 12:00:00 AM EDT MEDENT ([facility]) OFFICE OUTPATIENT VISIT 15 MINUTES 08/28/2020 12:00:00 AM EDT MEDENT ([facility]) PHYSICIAN TELEPHONE EVALUATION 5-10 MIN 05/20/2020 12: 00:00 AM EDT MEDENT ([facility]) RADEX SHOULDER COMPLETE MINIMUM 2 VIEWS 04/26/2020 12: 00:00 AM EST MEDENT ([facility]) OFFICE OUTPATIENT VISIT 25 MINUTES 04/26/2020 12:00:00 AM EST MEDENT ([facility]) Physical Therapy Eval - Low Complexity 03/21/2020 12:0 0:00 AM EST MEDENT ([facility]) RADEX SHOULDER COMPLETE MINIMUM 2 VIEWS 02/22/2020 12: 00:00 AM EST MEDENT ([facility]) Immunization: Flublok Quadrivalent (18 years & older) 0.5mL IM (Influenza) 12/21/2019 12:00:00 AM EDT eCW1 ([facility]) Results ID Date Data Source [id number] 01/02/2021 09:56:00 PM EDT [facility] Name Value Range Interpretation Code Description Data Sparkle rce(s) Supporting Document(s) SARS coronavirus 2 RNA [Presence] in Res piratory specimen by MICHELLE with probe detection NEGATIVE [facility] This lab was ordered by [facility] a nd reported by [facility]. ID Date Data Source [id number] 08/14/2020 12:00:00 AM EDT eCW1 ([facility]) Name Value Range Interpretation Code Description Data Sparkle rce(s) Supporting Document(s) 1092 VITAMIN B12 LEVEL eCW1 ([facility]) 23.9 FOLATE eCW1 ([facility]) ID Date Data Source [id number] 07/19/2020 08:45:00 PM EDT [facility] Name Value Range Interpretation Code Description Data Sparkle rce(s) Supporting Document(s) SARS-CoV-2 (COVID 19) NEGATIVE - SARS-CoV-2 (COVID19) [facility] This lab was ordered by [facility] a nd reported by [facility]. ID Date Data Source [id number] 07/02/2020 04:50:00 AM EDT [facility] Name Value Range Interpretation Code Description Data Sparkle rce(s) Supporting Document(s) SARS coronavirus 2 RNA [Presence] in Res piratory specimen by MICHELLE with probe detection NEGATIVE [facility] This lab was ordered by [facility] a nd reported by [facility]. ID Date Data Source [id number] 06/05/2020 03:47:00 PM EDT [facility] Name Value Range Interpretation Code Description Data Sparkle rce(s) Supporting Document(s) SARS-CoV-2 (COVID 19) NEGATIVE - SARS-CoV-2 (COVID19) [facility] This lab was ordered by [facility] a nd reported by [facility]. ID Date Data Source [id number] 05/31/2020 03:07:00 PM EDT [facility] Name Value Range Interpretation Code Description Data Sparkle rce(s) Supporting Document(s) SARS coronavirus 2 RNA [Presence] in Res piratory specimen by MICHELLE with probe detection NEGATIVE [facility] This lab was ordered by [facility] a nd reported by [facility]. ID Date Data Source LIPID PANEL (CARDIAC RISK) 12/22/2019 11:32:11 AM EDT eCW1 ( [facility]) Name Value Range Interpretation Code Description Data Sparkle rce(s) Supporting Document(s) Cholesterol [Moles/volume] in Serum or Plasma 168 CHOLESTEROL LEVEL eCW1 ([facility]) Cholesterol in HDL [Moles/volume] in Serum or Plasma 90 HDL CHOLESTEROL eCW1 ([facility]) Triglyceride [Mass/volume] in Serum or Plasma by calculation 76 TRIGLYCERIDES LEVEL eCW1 ([facility]) 78 NON-HDL-C eCW1 ([facility]) 1.866 CHOLESTEROL RISK RATIO eCW1 ([facility]) Cholesterol in LDL [Mass/volume] in Serum or Plasma by calculation 63 LDL CHOLESTEROL eCW1 ([facility]) ID Date Data Source VITAMIN [id number] 12/22/2019 11:32:11 AM EDT eCW1 ([facility]) Name Value Range Interpretation Code Description Data Sparkle rce(s) Supporting Document(s) 49.6 TOTAL 25(OH) VITAMIN D eCW1 ([facility]) ID Date Data Source [id number] 12/22/2019 11:32:11 AM EDT eCW1 ([facility]) Name Value Range Interpretation Code Description Data Sparkle rce(s) Supporting Document(s) Hemoglobin A1c/Hemoglobin.total in Blood 5.4 eCW1 ([facility]) ID Date Data Source FREE T4 & TSH PANEL 12/22/2019 11:32:11 AM EDT eCW1 ([facility]) Name Value Range Interpretation Code Description Data Sparkle rce(s) Supporting Document(s) 0.91 FREE T4 eCW1 ([facility]) 3.520 THYROID STIMULATING HORMONE eC W1 ([facility]) ID Date Data Source Comprehensive Metabolic Profile (CMP) 12/22/2019 11:32:10 AM EDT eCW1 ([facility]) Name Value Range Interpretation Code Description Data Sparkle rce(s) Supporting Document(s) > 60.0 GLOMERULAR FILTRATION RATE eCW 1 ([facility]) 10 BLOOD UREA NITROGEN eCW1 ([facility]) 89 GLUCOSE, FASTING eCW1 ([facility]) 0.72 CREATININE FOR GFR eCW1 ([facility]) 27 CARBON DIOXIDE LEVEL eCW1 ([facility]) 4.5 POTASSIUM SERUM eCW1 ([facility]) 94 CHLORIDE LEVEL eCW1 ([facility]) 127 SODIUM LEVEL eCW1 ([facility]) 8.8 CALCIUM LEVEL eCW1 ([facility]) 26 ALT/SGPT eCW1 ([facility]) 65 ALKALINE PHOSPHATASE eCW1 ([facility]) 18 AST/SGOT eCW1 ([facility]) 3.7 ALBUMIN eCW1 ([facility]) 6.2 TOTAL PROTEIN eCW1 ([facility]) 0.2 BILIRUBIN,TOTAL eCW1 ([facility]) 1.5 ALBUMIN/GLOBULIN RATIO eCW1 ([facility]) Procedure Social History Code Duration Value Status Description Data Source(s ) Smoking 12/06/2020 12:00:00 AM EDT Never Smoker completed Never S moker eCW1 ([facility]) Smoking 12/06/2020 12:00:00 AM EDT Never Smoker completed Never S moker eCW1 ([facility]) Smoking 12/06/2020 12:00:00 AM EDT Never Smoker completed Never S moker eCW1 ([facility]) Smoking 12/06/2020 12:00:00 AM EDT Never Smoker completed Never S moker eCW1 ([facility]) Smoking 12/06/2020 12:00:00 AM EDT Never Smoker completed Never S moker eCW1 ([facility]) Smoking 12/06/2020 12:00:00 AM EDT Never Smoker completed Never S moker eCW1 ([facility]) Smoking 11/14/2020 12:00:00 AM EDT Never Smoker completed Never S moker eCW1 ([facility]) Smoking 11/14/2020 12:00:00 AM EDT Never Smoker completed Never S moker eCW1 ([facility]) Smoking 11/14/2020 12:00:00 AM EDT Never Smoker completed Never S moker eCW1 ([facility]) Smoking 09/03/2020 12:00:00 AM EDT Never Smoker completed Never S moker eCW1 ([facility]) Smoking 09/03/2020 12:00:00 AM EDT Never Smoker completed Never S moker eCW1 ([facility]) Smoking 09/03/2020 12:00:00 AM EDT Never Smoker completed Never S moker eCW1 ([facility]) Smoking 09/03/2020 12:00:00 AM EDT Never Smoker completed Never S moker eCW1 ([facility]) Smoking 09/03/2020 12:00:00 AM EDT Never Smoker completed Never S moker eCW1 ([facility]) Smoking 09/03/2020 12:00:00 AM EDT Never Smoker completed Never S moker eCW1 ([facility]) Smoking 08/12/2020 12:00:00 AM EDT Never Smoker completed Never S moker eCW1 ([facility]) Smoking 08/12/2020 12:00:00 AM EDT Never Smoker completed Never S moker eCW1 ([facility]) Smoking 08/12/2020 12:00:00 AM EDT Never Smoker completed Never S moker eCW1 ([facility]) Smoking 04/19/2020 12:00:00 AM EST Never Smoker completed Never S moker eCW1 ([facility]) Smoking 04/19/2020 12:00:00 AM EST Never Smoker completed Never S moker eCW1 ([facility]) Smoking 04/19/2020 12:00:00 AM EST Never Smoker completed Never S moker eCW1 ([facility]) Smoking 04/19/2020 12:00:00 AM EST Never Smoker completed Never S moker eCW1 ([facility]) Smoking 04/19/2020 12:00:00 AM EST Never Smoker completed Never S moker eCW1 ([facility]) Smoking 04/19/2020 12:00:00 AM EST Never Smoker completed Never S moker eCW1 ([facility]) Smoking 04/19/2020 12:00:00 AM EST Never Smoker completed Never S moker eCW1 ([facility]) Smoking 04/19/2020 12:00:00 AM EST Never Smoker completed Never S moker eCW1 ([facility]) Smoking 03/14/2020 12:00:00 AM EST Never Smoker completed Never S moker eCW1 ([facility]) Smoking 03/06/2020 12:00:00 AM EST Never Smoker completed Never S moker eCW1 ([facility]) Smoking 01/17/2020 12:00:00 AM EST Never Smoker completed Never S moker eCW1 ([facility]) Smoking 01/17/2020 12:00:00 AM EST Never Smoker completed Never S moker eCW1 ([facility]) Smoking 01/17/2020 12:00:00 AM EST Never Smoker completed Never S moker eCW1 ([facility]) Smoking 01/17/2020 12:00:00 AM EST Never Smoker completed Never S moker eCW1 ([facility]) Smoking 01/04/2020 12:00:00 AM EDT Never Smoker completed Never S moker eCW1 ([facility]) Smoking 01/04/2020 12:00:00 AM EDT Never Smoker completed Never S moker eCW1 ([facility]) Smoking 01/04/2020 12:00:00 AM EDT Never Smoker completed Never S moker eCW1 ([facility]) Smoking 01/04/2020 12:00:00 AM EDT Never Smoker completed Never S moker eCW1 ([facility]) Smoking 12/25/2019 12:00:00 AM EDT Never Smoker completed Never S moker eCW1 ([facility]) Smoking 12/25/2019 12:00:00 AM EDT Never Smoker completed Never S moker eCW1 ([facility]) Smoking 12/25/2019 12:00:00 AM EDT Never Smoker completed Never S moker eCW1 ([facility]) Vital Signs ID Date Data Source UNK Name Value Range Interpretation Code Description Data Source(s) Body weight 169.2 [lb_av] 169.2 [lb_av] eCW1 ([facility]) Body weight 76.75 kg 76.75 kg eCW1 ([facility]) Body height 56.25 [in_i] 56.25 [in_i] eCW1 ([facility]) Body mass index (BMI) [Ratio] 37.59 kg/m2 37.59 kg/m2 W1 ([facility]) Heart rate 66 /min 66 /min eCW1 ([facility]) Respiratory rate 18 /min 18 /min eCW1 [facility] Body temperature 98.4 [degF] 98.4 [degF] eCW1 ( [facility]) Systolic blood pressure 132 mm[Hg] 132 mm[Hg] e CW1 ([facility]) Diastolic blood pressure 61 mm[Hg] 61 mm[Hg] eCW1 ([facility]) Body weight 165 [lb_av] 165 [lb_av] eCW1 ([facility]) Body weight 74.84 kg 74.84 kg eCW1 ([facility]) Body height 56.25 [in_i] 56.25 [in_i] eCW1 ([facility]) Body mass index (BMI) [Ratio] 36.66 kg/m2 36.66 kg/m2 eCW1 ([facility]) Heart rate 89 /min 89 /min eCW1 ([facility]) Respiratory rate 18 /min 18 /min eCW1 ([facility]) Body temperature 98.0 [degF] 98.0 [degF] eCW1 ( [facility]) Systolic blood pressure 132 mm[Hg] 132 mm[Hg] e CW1 ([facility]) Diastolic blood pressure 72 mm[Hg] 72 mm[Hg] eCW1 ([facility]) Body weight 164.8 [lb_av] 164.8 [lb_av] eCW1 ([facility]) Body height 56.25 [in_i] 56.25 [in_i] eCW1 ([facility]) Body mass index (BMI) [Ratio] 36.62 kg/m2 36.62 kg/m2 eCW1 ([facility]) Heart rate 66 /min 66 /min eCW1 ([facility]) Respiratory rate 18 /min 18 /min eCW1 ([facility]) Body temperature 99 [degF] 99 [degF] eCW1 ([facility]) Systolic blood pressure 135 mm[Hg] 135 mm[Hg] e CW1 ([facility]) Diastolic blood pressure 69 mm[Hg] 69 mm[Hg] eCW1 ([facility]) Body height 57 [in_i] 57 [in_i] MEDENT ([facility]) 4'9" Body weight 163.00 [lb_av] 163.00 [lb_av] MEDEN T ([facility]) Body mass index (BMI) [Ratio] 35.3 kg/m2 35.3 k g/m2 MEDENT ([facility]) Body weight 162 [lb_av] 162 [lb_av] eCW1 ([facility]) Body height 56.25 [in_i] 56.25 [in_i] eCW1 ([facility]) Body mass index (BMI) [Ratio] 35.99 kg/m2 35.99 kg/m2 eCW1 ([facility]) Heart rate 95 /min 95 /min eCW1 ([facility]) Respiratory rate 18 /min 18 /min eCW1 ([facility]) Body temperature 98.1 [degF] 98.1 [degF] eCW1 ( [facility]) Systolic blood pressure 112 mm[Hg] 112 mm[Hg] e CW1 ([facility]) Diastolic blood pressure 74 mm[Hg] 74 mm[Hg] eCW1 ([facility]) Diastolic blood pressure 72 mm[Hg] 72 mm[Hg] eCW1 ([facility]) Body weight 170 [lb_av] 170 [lb_av] eCW1 ([facility]) Body height 56.25 [in_i] 56.25 [in_i] eCW1 ([facility]) Body mass index (BMI) [Ratio] 37.77 kg/m2 37.77 kg/m2 eCW1 ([facility]) Heart rate 91 /min 91 /min eCW1 ([facility]) Respiratory rate 18 /min 18 /min eCW1 ([facility]) Body temperature 99.2 [degF] 99.2 [degF] eCW1 ( [facility]) Systolic blood pressure 104 mm[Hg] 104 mm[Hg] e CW1 ([facility]) Body weight 168 [lb_av] 168 [lb_av] eCW1 ([facility]) Body height 56.25 [in_i] 56.25 [in_i] eCW1 ([facility]) Body mass index (BMI) [Ratio] 37.33 kg/m2 37.33 kg/m2 eCW1 ([facility]) Heart rate 115 /min 115 /min eCW1 ([facility]) Respiratory rate 18 /min 18 /min eCW1 ([facility]) Body temperature 99.8 [degF] 99.8 [degF] eCW1 ( [facility]) Systolic blood pressure 102 mm[Hg] 102 mm[Hg] e CW1 ([facility]) Diastolic blood pressure 78 mm[Hg] 78 mm[Hg] eCW1 ([facility]) Body weight 172.4 [lb_av] 172.4 [lb_av] eCW1 ([facility]) Body height 56.25 [in_i] 56.25 [in_i] eCW1 ([facility]) Body mass index (BMI) [Ratio] 38.30 kg/m2 38.30 kg/m2 eCW1 ([facility]) Heart rate 102 /min 102 /min eCW1 ([facility]) Respiratory rate 18 /min 18 /min eCW1 ([facility]) Body temperature 98.1 [degF] 98.1 [degF] eCW1 ( [facility]) Systolic blood pressure 138 mm[Hg] 138 mm[Hg] e CW1 ([facility]) Diastolic blood pressure 86 mm[Hg] 86 mm[Hg] eCW1 ([facility]) Body weight 169.2 [lb_av] 169.2 [lb_av] eCW1 ([facility]) Body height 56.25 [in_i] 56.25 [in_i] eCW1 ([facility]) Body mass index (BMI) [Ratio] 37.59 kg/m2 37.59 kg/m2 eCW1 ([facility]) Heart rate 102 /min 102 /min eCW1 ([facility]) Respiratory rate 18 /min 18 /min eCW1 ([facility]) Body temperature 96.9 [degF] 96.9 [degF] eCW1 ( [facility]) Systolic blood pressure 115 mm[Hg] 115 mm[Hg] e CW1 ([facility]) Diastolic blood pressure 62 mm[Hg] 62 mm[Hg] eCW1 ([facility]) Body weight 171 [lb_av] 171 [lb_av] eCW1 ([facility]) Body height 56.25 [in_i] 56.25 [in_i] eCW1 ([facility]) Body mass index (BMI) [Ratio] 37.99 kg/m2 37.99 kg/m2 eCW1 ([facility]) Heart rate 106 /min 106 /min eCW1 ([facility]) Respiratory rate 18 /min 18 /min eCW1 ([facility]) Body temperature 98.6 [degF] 98.6 [degF] eCW1 ( [facility]) Systolic blood pressure 130 mm[Hg] 130 mm[Hg] e CW1 ([facility]) Diastolic blood pressure 78 mm[Hg] 78 mm[Hg] eCW1 ([facility]) Body mass index (BMI) [Ratio] 37.82 kg/m2 37.82 kg/m2 eCW1 ([facility]) Body height 56.25 [in_i] 56.25 [in_i] eCW1 ([facility]) Body weight 170.2 [lb_av] 170.2 [lb_av] eCW1 ([facility]) Body temperature 98.2 [degF] 98.2 [degF] eCW1 ( [facility]) Systolic blood pressure 114 mm[Hg] 114 mm[Hg] e CW1 ([facility]) Diastolic blood pressure 70 mm[Hg] 70 mm[Hg] eCW1 ([facility]) Heart rate 95 /min 95 /min eCW1 ([facility]) Respiratory rate 18 /min 18 /min eCW1 ([facility]) Body weight 172 [lb_av] 172 [lb_av] eCW1 ([facility]) Body height 56.25 [in_i] 56.25 [in_i] eCW1 ([facility]) Body mass index (BMI) [Ratio] 38.22 kg/m2 38.22 kg/m2 eCW1 ([facility]) Heart rate 107 /min 107 /min eCW1 ([facility]) Respiratory rate 18 /min 18 /min eCW1 ([facility] hospital) Body temperature 99.1 [degF] 99.1 [degF] eCW1 ( [facility]) Systolic blood pressure 110 mm[Hg] 110 mm[Hg] e CW1 ([facility]) Diastolic blood pressure 78 mm[Hg] 78 mm[Hg] eCW1 ([facility]) Patient Treatment Plan of Care Planned Activity Planned Date Details Description Data Source (s) Bath/Shower Seat - 08/30/2020 12:00:00 AM EDT eCW1 ([facility]) Hand Held Shower [place] - 08/30/2020 12:00:00 AM EDT eCW1 ([facility]) Wall Grab Bar - 08/30/2020 12:00:00 AM EDT eCW1 ([facility]) Bath/Shower Seat - 08/30/2020 12:00:00 AM EDT eCW1 ([facility]) Hand Held Shower [place] - 08/30/2020 12:00:00 AM EDT eCW1 ([facility]) Wall Grab Bar - 08/30/2020 12:00:00 AM EDT eCW1 ([facility]) Diclofenac Sodium 50 MG Delayed Release Oral Tablet 01/17/20 12:00:00 AM EST eCW1 ([facility]) Diclofenac Sodium 50 MG Delayed Release Oral Tablet 01/17/20 12:00:00 AM EST eCW1 ([facility]) Diclofenac Sodium 50 MG Delayed Release Oral Tablet 01/17/20 12:00:00 AM EST eCW1 ([facility]) Diclofenac Sodium 50 MG Delayed Release Oral Tablet 01/17/20 12:00:00 AM EST eCW1 ([facility]) Diclofenac Sodium 50 MG Delayed Release Oral Tablet 01/17/20 12:00:00 AM EST eCW1 ([facility]) Diclofenac Sodium 50 MG Delayed Release Oral Tablet 01/17/20 12:00:00 AM EST eCW1 ([facility]) Diclofenac Sodium 50 MG Delayed Release Oral Tablet 01/17/20 12:00:00 AM EST eCW1 ([facility]) Diclofenac Sodium 50 MG Delayed Release Oral Tablet 01/17/20 12:00:00 AM EST eCW1 ([facility]) Diclofenac Sodium 50 MG Delayed Release Oral Tablet 01/17/20 12:00:00 AM EST eCW1 ([facility]) Diclofenac Sodium 50 MG Delayed Release Oral Tablet 01/17/20 12:00:00 AM EST eCW1 ([facility]) Diclofenac Sodium 50 MG Delayed Release Oral Tablet 01/17/20 12:00:00 AM EST eCW1 ([facility]) Diclofenac Sodium 50 MG Delayed Release Oral Tablet 01/17/20 12:00:00 AM EST eCW1 ([facility]) Diclofenac Sodium 50 MG Delayed Release Oral Tablet 01/17/20 12:00:00 AM EST eCW1 ([facility]) Diclofenac Sodium 50 MG Delayed Release Oral Tablet 01/17/20 12:00:00 AM EST eCW1 ([facility]) Diclofenac Sodium 50 MG Delayed Release Oral Tablet 01/17/20 12:00:00 AM EST eCW1 ([facility]) Diclofenac Sodium 50 MG Delayed Release Oral Tablet 01/17/20 12:00:00 AM EST eCW1 ([facility]) Diclofenac Sodium 50 MG Delayed Release Oral Tablet 01/17/20 12:00:00 AM EST eCW1 ([facility])
--- OUTSIDE RECORDS SUMMARY | 2021-02-16 17:47 | CCD ---
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 Active confirmed 299190 008 Problem Vitamin D deficiency E55.9 Active confirmed 83419541 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 confirmed 371 420313 Problem Other amnesia R41.3 Active confirmed 245710 00 Problem Myalgia M79.1 Active confirmed 45428331 Problem Spinal stenosis of lumbosacral region M48.07 Ac tive confirmed 60278955 Problem Other chronic pain G89.29 Active confirmed 8 9679540 Problem Low back pain M54.5 Active confirmed 802793 009 Problem Lumbago due to displacement of intervertebral disc M51.26 Active confirmed 05161581 Problem Essential hypertension I10 Active confirmed 25725280 Problem 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 Active confirmed 15417235222369 Problem BMI 40.0-44.9, adult Z68.41 Active confirmed 017710695 Problem Age-related osteoporosis without current pathological fracture M81.0 Active confirmed 38610568 Problem 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 Activ e confirmed [id number] Problem Other intervertebral disc degeneration, lumbar region M51.36 Active confirmed 78262790 Problem Paresthesia of both feet R20.2 Active confirmed 591322974 Problem Hypothyroidism, unspecified E03.9 Active confirmed 72049875 Problem Impaired fasting glucose R73.01 Active confirmed 298243571 Problem Spondylolisthesis at L5-S1 level M43.17 Active confirmed 494891567 Problem Spondylosis of lumbosacral region without myelop athy or radiculopathy M47.817 Active confirmed 61620927 Problem Spondylosis of lumbar region without myelopathy or radiculopathy M47.816 Active confirmed 57277856 Problem Arthritis of shoulder region, right M19.011 Acti ve confirmed [id number] ALLERGIES No Known Allergies ENCOUNTERS from 1955 to 2021-01-23 Encounter Location Date Provider Diagnosis [place] [id number] [facility] [phone] [place] [address] 17 Jan, 2021 Naomie Garcia IMMUNIZATIONS Vaccine Route Administration Date [...] - Orally daily Not-Taking Hand Held Shower [place] - as directed Dx: M46.90, M51.36, M43.17 [...] M43.17 _ for 99 days Aug, Active Paliperidone Palmitate 234 MG/1.5ML 1.5 ml Intramuscular per pt Q3mon ths Not-Taking Lisinopril 20 MG 1 tablet Orally [...] DOSE THREE TABLETS Oral for 30 Not-Taking Mirtazapine 15 MG TAKE 1/2 TABLET BY MOUTH AT BEDTIME Oral Daily for 30 days Active Donepezil HCl 10 MG TAKE ONE [...] [facility]o 01/19 Hospitalization History [facility] 06/2017 Hospitalization History [facility] 07/2020 Goals Section No Information Health Concerns No Information MEDICAL EQUIPMENT No Information MENTAL STATUS No Information FUNCTIONAL STATUS No Information ASSESSMENTS No Information PLAN OF TREATMENT Medication Medication Name Sig Start Date Stop Date Diclofenac Sodium 50 MG 1 tablet Orally Twice a day for 30 Days Mirtazapine 15 MG TAKE 1/2 TABLET BY MOUTH AT BEDTIME Oral Daily for 30 days Vitamin D3 50 MCG (1999 [place]) TAKE ONE CAPSULE BY MOUTH @8AM Orally Once a day for 90 days Next Appt Details Provider Name:Naomie Garcia, 2020-03 01:00:00 PM, [address] [facility], , [place], [address], Provider Name:Evens Rowe, 2021-03-20 11:15:00 AM, [address] [facility] [address] [facility], , [place], [place], [address], Insurance Providers Payer Name Payer Address Payer Phone Insured Name Patient Relati onship to Insured Coverage Start Date Coverage End Date MEDICAID [email or web address] [address] [facility] [address] [phone] LUZMARIA FUNES self AETNA MEDICARE AETNA [employer] [address] [facility] [address] LUZMARIA FUNES
--- OUTSIDE RECORDS SUMMARY | 2021-02-16 17:47 | CCD ---
Author Author [facility] Organization [facility] Address Unknown Phone Unavailable Care Team Providers Care Assistant Professor Of Biochemistry Name Role Phone Naomie Garcia Unavailable PROBLEMS Type Condition ICD9-CM Code RUH94-YS Code Onset Dates Condition S tatus W/U Status Risk SNOMED Code Notes Problem Schizoaffective disorder, bipolar type F25.0 A ctive confirmed 32821220 Problem Vitamin D deficiency, unspecified E55.9 Active con firmed 69837512 Problem Morbid (severe) obesity due to excess calories E66 .01 Active confirmed 691792427 Problem 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 Active confirmed 208324 008 Problem Vitamin D deficiency E55.9 Active confirmed 30332799 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 confirmed 371 878974 Problem Other amnesia R41.3 Active confirmed 025801 00 Problem Myalgia M79.1 Active confirmed 69979600 Problem Spinal stenosis of lumbosacral region M48.07 Ac tive confirmed 26002078 Problem Other chronic pain G89.29 Active confirmed 8 7435898 Problem Low back pain M54.5 Active confirmed 857125 009 Problem Lumbago due to displacement of intervertebral disc M51.26 Active confirmed 31193371 Problem Essential hypertension I10 Active confirmed 54763548 Problem 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 Active confirmed 80778493033489 Problem BMI 40.0-44.9, adult Z68.41 Active confirmed 792656302 Problem Age-related osteoporosis without current pathological fracture M81.0 Active confirmed 62655390 Problem 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 Activ e confirmed 7553335953031940 Problem Other intervertebral disc degeneration, lumbar region M51.36 Active confirmed 41779829 Problem Paresthesia of both feet R20.2 Active confirmed 973552499 Problem Hypothyroidism, unspecified E03.9 Active confirmed 32110569 Problem Impaired fasting glucose R73.01 Active confirmed 527828964 Problem Spondylolisthesis at L5-S1 level M43.17 Active confirmed 439276070 Problem Spondylosis of lumbosacral region without myelop athy or radiculopathy M47.817 Active confirmed 07018422 Problem Spondylosis of lumbar region without myelopathy or radiculopathy M47.816 Active confirmed 67545437 Problem Arthritis of shoulder region, right M19.011 Acti ve confirmed [id number] ALLERGIES No Known Allergies ENCOUNTERS from 1955 to 2021-02-12 Encounter Location Date Provider Diagnosis [place] [address] [facility] [phone] [place] [address] Feb, Naomie Garcia Hypothyroidism, unspecified E03.9 ; Vitamin D deficiency, unspecified E55.9 ; Impaired fasting glucose R73.01 ; Other amnesia R41.3 ; Essential hypertension I10 ; Vitamin D deficiency E55.9 ; Paresthesia of both feet R20.2 and Lipid screening Z13.220 IMMUNIZATIONS Vaccine Route Administration Date Status Influenza [...] Notes Start Da te End Date Status tiZANidine HCl 2 MG TAKE ONE TABLET BY MOUTH @12PM and TAKE ONE TAB LET @8PM Active Oyster Shell Calcium 500 MG TAKE ONE TABLET BY MOUTH @8AM for 28 Active Cogentin 0.5 MG 1 tab(s) 2 times a day Not-Taking Diclofenac Sodium 50 MG 1 tablet Orally Twice a day for 30 Days Active Stool Softener 100 MG 1 capsule as needed Orally Once a day Not-Taking risperiDONE 2 MG 1 tablet Orally Once a day for 30 day(s) Active Hand Held Shower [place] - as directed Dx: M46.90, M51.36, M43.17 _ for 99 days Aug, Active Vitamin D3 50 MCG (2000 [place]) TAKE ONE CAPSULE BY MOUTH @8AM Orally Once a day for 90 days Active Lactulose 10 GM/15ML TAKE 15 MILLILITERS BY MOUTH TWO TO THREE TIMES DAILY FOR CONSTIPATION Oral for 21 Not-Aldo ing Wall Grab [place] - as directed Dx: M46.90, M51.36, M43.17 _ for 99 days Aug, Active Benefiber - Orally Not-Taking Benztropine Mesylate 0.5 MG TAKE ONE TABLET BY MOUTH @ 8AM and TAKE ONE TABLET @8PM Oral for 28 Active Invega Trinza 819 MG/2.625ML INJECT ONE SYRINGE INTRAM USCULARLY FOR A SINGLE DOSE Intramuscular Not-Taking Biofreeze Roll-On 4 % 1 application to affected ar ea as needed Externally Once a day Not-Taking Venlafaxine HCl ER 150 MG TAKE TWO CAPSULES BY MOUTH @8AM Oral f or 28 duplicate Not-Taking traZODone HCl 50 MG 1/2 (25mg) tablet at bedtime as needed O rally Once a day HS Active Multivitamin Adults - Orally daily Not-Taking clonazePAM 1 MG (Schedule IV Drug) TAKE ONE TABLET BY MOUTH TWICE DAILY AND EVERY FOUR HOURS NEEDED FOR ANXIETY MAX DAILY DOSE THREE TABLETS Oral for 30 Not-Taking Lisinopril 20 MG 1 tablet Orally Once a day for 90 days Active Rozerem 8 MG TAKE ONE TABLET BY MOUTH @8PM Oral for 28 duplicate Not-Taking Metoprolol Tartrate 25 mg TAKE ONE TABLET BY MOUTH @8A M and TAKE ONE TABLET @8PM Oral Twice a day for 30 Days Act merry Ramelteon 8 MG 1 tablet at bedtime as needed Orally Once a day Not-Taking Donepezil HCl 10 MG TAKE ONE TABLET BY MOUTH @8PM Oral for 28 duplica te Not-Taking Vitamin D 2000 UNIT 1 capsule Orally Once a day for 28 Not-Taking Paliperidone Palmitate 234 MG/1.5ML 1.5 ml Intramuscular per pt Q3mon ths Not-Taking Levothyroxine Sodium 50 MCG 1 tablet in the morning on an empty stomach Orally Once a day for 30 Days Active Bath/Shower [place]at - as directed Dx: M46.90, M51.36, M43.17 _ for 99 days Aug, 2020 Active Multivitamin Adults - as directed Orally Active Rozerem 8 mg 1 tablet at bedtime as needed Not-Taking Mirtazapine 15 MG TAKE 1/2 TABLET BY MOUTH AT BEDTIME Oral Daily for 30 days Active risperiDONE 1 MG TAKE ONE TABLET [...] features; repeat 10 years 2012 Hospitalization History [facility]- schizoaffective d/o 01/19 Hospitalization History [facility] 06/2017 Hospitalization History [facility] 07/2020 Goals Section No Information Health Concerns No Information MEDICAL EQUIPMENT No Information MENTAL STATUS No Information FUNCTIONAL STATUS No Information ASSESSMENTS Encounter Date Diagnosis Assessment Notes Treatment Notes Treatm ent Clinical Notes Feb, Hypothyroidism, unspecified (ICD-10 - E03.9) Feb, Vitamin D deficiency, unspecified (ICD-10 - E55. 9) Feb, Impaired fasting glucose (ICD-10 - R73.01) Feb, Other amnesia (ICD-10 - R41.3) Feb, Essential hypertension (ICD-10 - I10) Feb, Vitamin D deficiency (ICD-10 - E55.9) Feb, Paresthesia of both feet (ICD-10 - R20.2) Feb, Lipid screening (ICD-10 - Z13.220) PLAN OF TREATMENT Medication Medication Name Sig Start Date Stop Date Diclofenac Sodium 50 MG 1 tablet Orally Twice a day for 30 Days Mirtazapine 15 MG TAKE 1/2 TABLET BY MOUTH AT BEDTIME Oral Daily for 30 days Lisinopril 20 MG 1 tablet Orally Once a day for 90 days Vitamin D3 50 MCG (1999 [place]) TAKE ONE CAPSULE BY MOUTH @8AM Orally Once a day for 90 days Pending Tests Test Name Order Date HEMOGLOBIN A1c 2021-02-12 VITAMIN D 25-HYDROXY 2021-02-12 PTH INTACT 2021-02-12 Comprehensive Metabolic Profile (CMP) 2021-02-12 CBC with Differential 2021-02-12 FREE T4 & TSH PANEL 2021-02-12 LIPID PANEL (CARDIAC RISK) 2021-02-12 VITAMIN B12 LEVEL 2021-02-12 Next Appt Details Provider Name:Evens Rowe, 2021-03-20 11:15:00 AM, [address] [facility] [address] [facility], , [place], [address], Provider Name:Naomie Garcia, 03-26 01:00:00 PM, [address] [facility], , [place], [address], Insurance Providers Payer Name Payer Address Payer Phone Insured Name Patient Relati onship to Insured Coverage Start Date Coverage End Date Subscriber Number Group Nu mber AETNA MEDICARE [employer] [place] [address] [facility] [address] LUZMARIA FUNES self [id number] MEDICAID [facility] [address] [facility] [id number] LUZMARIA FUNES self [id number]
--- OUTSIDE RECORDS SUMMARY | 2021-02-16 17:47 | CCD ---
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 Active confirmed 531086 008 Problem Vitamin D deficiency E55.9 Active confirmed 24947335 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 confirmed 371 563141 Problem Other amnesia R41.3 Active confirmed 686689 00 Problem Myalgia M79.1 Active confirmed 26550441 Problem Spinal stenosis of lumbosacral region M48.07 Ac tive confirmed 79479203 Problem Other chronic pain G89.29 Active confirmed 8 2763931 Problem Low back pain M54.5 Active confirmed 099045 009 Problem Lumbago due to displacement of intervertebral disc M51.26 Active confirmed 07210890 Problem Essential hypertension I10 Active confirmed 44741080 Problem 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 Active confirmed 49590119279997 Problem BMI 40.0-44.9, adult Z68.41 Active confirmed 944022412 Problem Age-related osteoporosis without current pathological fracture M81.0 Active confirmed 92109986 Problem 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 Activ e confirmed [id number] Problem Other intervertebral disc degeneration, lumbar region M51.36 Active confirmed 42536428 Problem Paresthesia of both feet R20.2 Active confirmed 007662196 Problem Hypothyroidism, unspecified E03.9 Active confirmed 74926084 Problem Impaired fasting glucose R73.01 Active confirmed 506057287 Problem Spondylolisthesis at L5-S1 level M43.17 Active confirmed 437062060 Problem Spondylosis of lumbosacral region without myelop athy or radiculopathy M47.817 Active confirmed 83653339 Problem Spondylosis of lumbar region without myelopathy or radiculopathy M47.816 Active confirmed 95352141 Problem Arthritis of shoulder region, right M19.011 Acti ve confirmed [id number] ALLERGIES No Known Allergies ENCOUNTERS from 1955 to 2021-02-14 Encounter Location Date Provider Diagnosis [facility] [address] [place] [id number] Feb, 2021 Naomie Radha Age-related osteoporosis without current pathological fracture M81.0 [...] Notes Start Da te End Date Status Wall Grab Bar - as directed Dx: M46.90, M51.36, M43.17 _ for 99 days Aug, Active Vitamin D3 50 MCG (2000 UT) TAKE ONE CAPSULE BY MOUTH @8AM Orally Once a day for 90 days Active Lactulose 10 GM/15ML TAKE 15 MILLILITERS BY MOUTH TWO TO THREE TIMES DAILY FOR CONSTIPATION Oral for 21 Not-Aldo ing tiZANidine HCl 2 MG TAKE ONE TABLET BY MOUTH @12PM and TAKE ONE TAB LET @8PM Active Benefiber - Orally Not-Taking Benztropine Mesylate 0.5 MG TAKE ONE TABLET BY MOUTH @ 8AM and TAKE ONE TABLET @8PM Oral for 28 Active Venlafaxine HCl ER 150 MG TAKE TWO CAPSULES BY MOUTH @8AM Oral f or 28 duplicate Not-Taking Invega Trinza 819 MG/2.625ML INJECT ONE SYRINGE INTRAM USCULARLY FOR A SINGLE DOSE Intramuscular Not-Taking risperiDONE 1 MG 1 tablet Orally 1mg am, 2mg hs for 30 Days Active Hand Held Shower [place] - as directed Dx: M46.90, M51.36, M43.17 _ for 99 days Aug, Active traZODone HCl 50 MG 1/2 (25mg) tablet at bedtime as needed O rally Once a day HS Active Multivitamin Adults - Orally daily Not-Taking Rozerem 8 mg 1 tablet at bedtime as needed Not-Taking Levothyroxine Sodium 50 MCG 1 tablet in the morning on an empty stomach Orally Once a day for 30 Days Active Bath/Shower Seat - as directed Dx: M46.90, M51.36, M43.17 _ for 99 days Aug, Active clonazePAM 1 MG (Schedule IV Drug) TAKE ONE TABLET BY MOUTH TWICE DAILY AND EVERY FOUR HOURS NEEDED FOR ANXIETY MAX DAILY DOSE THREE TABLETS Oral for 30 Not-Taking Biofreeze Roll-On 4 % 1 application to affected ar ea as needed Externally Once a day Not-Taking risperiDONE 2 MG 1 tablet Orally Once a day for 30 day(s) Active Lisinopril 20 MG 1 tablet Orally [...] MOUTH @8AM Oral for 28 duplicate Not-Taking Stool Softener 100 MG 1 capsule as needed Orally Once a day Not-Taking Vitamin D 2000 UNIT 1 capsule Orally Once a day for 28 Active Donepezil HCl 10 MG TAKE ONE TABLET BY MOUTH @8PM Oral for 28 duplica te Not-Taking Multivitamin Adults - as directed Orally Active Oyster Shell Calcium 500 MG TAKE ONE TABLET BY MOUTH @8AM for 28 Active Cogentin 0.5 MG 1 tab(s) 2 times a day Not-Taking Mirtazapine 15 MG TAKE 1/2 TABLET BY MOUTH AT BEDTIME Oral Daily for 30 days Active Diclofenac Sodium 50 MG 1 tablet Orally Twice a day for 30 Days Active Paliperidone Palmitate 234 MG/1.5ML 1.5 ml Intramuscular per pt Q3mon ths Not-Taking LORazepam 1 MG 1 tablet at bedtime as needed Orally Once a day Active KlonoPIN 1 MG 1 tablet Orally BID No t-Taking Calcium 500 MG 1 tablet with meals Orally Daily for 30 Days Active Effexor XR 150 MG 225mg-1 capsule with food Orally Once a day Active Donepezil HCl 10 MG 1 tablet [...] repeat 10 years 2012 Hospitalization History [facility]- schizoaffective d/o 01/19 [place] [facility] [place] [facility] 07/2020 Goals Section No Information Health Concerns No Information MEDICAL EQUIPMENT No Information MENTAL STATUS No Information FUNCTIONAL STATUS No Information ASSESSMENTS Encounter Date Diagnosis Assessment Notes Treatment Notes Treatm ent Clinical Notes Feb, Age-related osteoporosis wit hout current pathological fracture (ICD-10 - M81.0) PLAN OF TREATMENT Medication Medication Name Sig Start Date Stop Date Mirtazapine 15 MG TAKE 1/2 TABLET BY MOUTH AT BEDTIME Oral Daily for 30 days Calcium 500 MG 1 tablet with meals Orally Daily for 30 Days Diclofenac Sodium 50 MG 1 tablet Orally Twice a day for 30 Days Vitamin D 2000 UNIT 1 capsule Orally Once a day for 28 risperiDONE 1 MG 1 tablet Orally 1mg am, 2mg hs for 30 Days Vitamin D3 50 MCG (1999 UT) TAKE ONE CAPSULE BY MOUTH @8AM Orally Once a day for 90 days Lisinopril 20 MG 1 tablet Orally Once a day for 90 days Levothyroxine Sodium 50 MCG 1 tablet in the morning on an empty stomach Orally Once a day for 30 Days Next Appt Details Provider Name:Evens Rowe, 2021-03-20 11:15:00 AM, [address], , [place], [address], Provider Name:Naomie Vincent Mandyisis, 2-0 03-26 01:00:00 PM, [address] [facility], , [place], [address], Insurance Providers Payer Name Payer Address Payer Phone Insured Name Patient Relati onship to Insured Coverage Start Date Coverage End Date Subscriber Number Group Nu mber A[employer]NA MEDICARE [employer] [address] [place] [id number] LUZMARIA FUNES self [id number] MEDICAID [employer] [address] [facility] [id number] LUZMARIA FUNES self [id number]
[2021-02-16] MEDS ORDERED: LORazepam 1 MG TAB PO STA ×2 (19:00→22:34)
--- NOTE | 2021-02-16 20:01 | REP ---
INDICATION: SOB. COMPARISON: Comparison chest x-ray July 19, 2020. TECHNIQUE: Two views.. FINDINGS: The lungs are well inflated and free of infiltrate. The pleural angles are sharp. The heart size is normal. Pulmonary vasculature is not increased. Chronic changes right glenohumeral articulation. Old acromion process fracture. No acute bony abnormality.. There are colonic loops under the right hemidiaphragm. IMPRESSION: No acute disease. <Electronically signed by Tod Caraballo > 02/16/211956
[2021-02-16 20:15] LABS: HEMATOCRIT 34.1 % (36.0-47.0); HEMOGLOBIN 11.9 g/dl (12.0-15.5); MEAN CORPUSCULAR HEMOGLOBIN 30.7 pg (27.0-33.0); MEAN CORPUSCULAR HGB CONC 34.9 g/dl (32.0-36.5); MEAN CORPUSCULAR VOLUME 87.9 fl (80.0-96.0); PLATELET COUNT, AUTOMATED 377 10^3/uL (150-450); RED BLOOD COUNT 3.88 10^6/uL (4.00-5.40); WHITE BLOOD COUNT 9.6 10^3/uL (4.0-10.0)
[2021-02-16] MEDS ORDERED: NS 500 ML IV ONE (20:45)
[2021-02-16 21:00] LABS: ACETAMINOPHEN LEVEL < 2.0 UG/ML (10.0-30.0); ALBUMIN 4.2 GM/DL (3.2-5.2); ALT/SGPT 35 U/L (12-78); BILIRUBIN,DIRECT < 0.1 MG/DL (0.0-0.2); BILIRUBIN,TOTAL 0.3 MG/DL (0.2-1.0); BLOOD UREA NITROGEN 11 MG/DL (7-18); CALCIUM LEVEL 9.7 MG/DL (8.8-10.2); CARBON DIOXIDE LEVEL 25 MEQ/L (21-32); CHLORIDE LEVEL 90 MEQ/L (98-107); CREATININE FOR GFR 0.74 MG/DL (0.55-1.30); ETHYL ALCOHOL (ETHANOL) < 0.003 % (0.000-0.010); GLOMERULAR FILTRATION RATE > 60.0 (>45); GLUCOSE, FASTING 115 MG/DL (70-100); POTASSIUM SERUM 5.3 MEQ/L (3.5-5.1); SALICYLATE LEVEL < 1.7 MG/DL (5.0-30.0); SODIUM LEVEL 124 MEQ/L (136-145); TOTAL PROTEIN 7.1 GM/DL (6.4-8.2)
--- NOTE | 2021-02-16 21:23 | ECGEPIP ---
[facility] - ED Test Date: 2021-02-16 Pat Name: LUZMARIA FUNES Department: Room: - Gender: Female Appointment Manager: : 1955 Requested By: ODALIS Jacobs Order Number: [id number] Reading MD: Ken Mojica Measurements Intervals [place] Rate: 119 P: 75 OK: 136 QRS: 86 QRSD: 82 T: 40 QT: 308 QTc: 433 Interpretive Statements Sinus tachycardia POOR R WAVE PROGRESSION BASELINE ARTIFACT AFFECTS INTERPRETATION Electronically Signed on 02-16-2021 21:23:14 EST by Ken Mojica
[2021-02-16] MEDS ORDERED: LORA1TAB4 PO (21:53)
[2021-02-16] MEDS ORDERED: MIRT-62 PO (21:53)
[2021-02-16] MEDS ORDERED: RISP1TAB42 PO (21:53)
[2021-02-16] MEDS ORDERED: RISP2TAB32 PO (21:53)
[2021-02-16] MEDS ORDERED: VENL150C43 PO (21:53)
[2021-02-16] MEDS ORDERED: TRAZ-252 PO (21:53)
[2021-02-16] MEDS ORDERED: HOME MED LIST COMPLETE! XX SCH (21:55)
[2021-02-16] MEDS ORDERED: ACETAMINOPHEN TAB 650MG DOSE (2X325MG) PO PRN (23:55)
[2021-02-16] MEDS ORDERED: MOM 30ML SUSPENSION UDC PO PRN (23:55)
[2021-02-16] MEDS ORDERED: MAALOX 30 ML SUSP *UDC PO PRN (23:55)
[2021-02-17 00:07] LABS: RSV AMPLIFICATION NEGATIVE (NEGATIVE)
--- OUTSIDE RECORDS SUMMARY | 2021-02-17 00:28 | CCD ---
Author Author [facility] Organization [facility] Address Unknown Phone Unavailable Care Team Providers Care Metal Bed Assembler Name Role Phone DRAZEK, I DANIELLE PA [...] is protected by Article 27-F of the [facility] Public Health law. If you continue you may have access to information: Regarding HIV / AIDS; Provided by facilities licensed or operated by the [facility] Office of Mental Health; or Provided by the [facility] Office for People With Developmental Disabilities. If such information is present, then the following [facility] mandated warning applies: This information has been [...] law may result in a fine or skilled nursing sentence or both. A general authorization for the release of medical or other information is NOT sufficient authorization for further disc losure. Family History Family Member Name Family Member Gender Family Member Status Date o f Status Description Data Source(s) Unknown Unknown Problem MEDENT ([facility]) Unknown Female Problem MEDENT ([facility] Encounters Encounter Providers Location Date Indications Data Source(s ) Unknown [address] [facility] [address] 02/14/2021 12:00:00 AM EST eCW1 ([facility]) [place] [address] [facility] [address] 02/12/2021 12:00:00 AM EST eCW1 ([facility]) Unknown [address] [facility] [address] 01/22/2021 12:00:00 AM EST eCW1 ([facility]) Unknown [address] [facility] [place] [address] 12/24/2020 12:00:00 AM EDT eCW1 ([facility]) Unknown [address] [facility] [address] 12/23/2020 12:00:00 AM EDT eCW1 ([facility]) Outpatient [address] [facility] [place] [address] 12/06/2020 12:00:00 AM EDT eCW1 ([facility]) Unknown [address] [facility] [address] 11/26/2020 12:00:00 AM EDT eCW1 ([facility]) Unknown [address] [facility] [address] 11/19/2020 12:00:00 AM EDT eCW1 ([facility]) Outpatient [address] [facility] [place] [address] 11/14/2020 12:00:00 AM EDT eCW1 ([facility]) Office Visit Attender: DANIELLE SHORT Physical Therapy 2020 11:00:00 AM EDT MEDENT ([facility]) Unknown [address] [facility] [address] 10/08/2020 12:00:00 AM EDT eCW1 ([facility]) Unknown [address] [facility] [address] 09/24/2020 12:00:00 AM EDT eCW1 ([facility]) Unknown [address] [facility] [address] 09/24/2020 12:00:00 AM EDT eCW1 ([facility]) Unknown [address] [facility] [address] 09/11/2020 12:00:00 AM EDT eCW1 ([facility]) [place] [address] [facility] [address] 09/03/2020 12:00:00 AM EDT eCW1 (Critical access hospital) Unknown [address] [facility] [address] 09/03/2020 12:00:00 AM EDT eCW1 ([facility]) Unknown [address] [facility] [address] 08/29/2020 12:00:00 AM EDT eCW1 ([facility]) OFFICE OUTPATIENT VISIT 15 MINUTES Attender: DANIELLE SHORT Phys ical Therapy 08/28/2020 04:30:00 PM EDT MEDENT ([facility]) Unknown [address] [facility] [address] 08/20/2020 12:00:00 AM EDT eCW1 ([facility]) Office Visit, Est Pt., Level 4 PC [address] [place] [address] 08/12/2020 12:00:00 AM EDT eCW1 ([facility]) Unknown [address] [facility] [address] 07/25/2020 12:00:00 AM EDT eCW1 ([facility]) Unknown [address] [facility] [address] 07/09/2020 12:00:00 AM EDT eCW1 ([facility]) Unknown [address] [facility] [address] 06/24/2020 12:00:00 AM EDT eCW1 ([facility]) Unknown [address] [facility] [address] 06/13/2020 12:00:00 AM EDT eCW1 ([facility]) Unknown [address] [facility] [address] 06/03/2020 12:00:00 AM EDT eCW1 ([facility]) Office Visit Attender: DANIELLE SHORT Physical Therapy 2020 01:20:00 PM EDT MEDENT ([facility]) Outpatient Attender: DANIELLE SHORT Physical Therapy 04/26/2020 0 2:30:00 PM EST MEDENT ([facility]) Unknown [address] [facility] [address] 04/23/2020 12:00:00 AM EST eCW1 ([facility]) Outpatient [address] [facility] [place] [address] 04/19/2020 12:00:00 AM EST eCW1 ([facility]) Unknown [address] [facility] [address] 04/18/2020 12:00:00 AM EST eCW1 ([facility]) Outpatient [address] [facility] [address] 03/14/2020 12:00:00 AM EST eCW1 ([facility]) Outpatient [address] [facility] [address] 03/06/2020 12:00:00 AM EST eCW1 ([facility]) OFFICE OUTPATIENT VISIT 15 MINUTES Attender: DANIELLE SHORT Phys ical Therapy 02/22/2020 08:00:00 AM EST MEDENT ([facility]) Unknown [address] [facility] [address] 02/22/2020 12:00:00 AM EST eCW1 ([facility]) Outpatient [address] [facility] [address] 01/17/2020 12:00:00 AM EST eCW1 ([facility]) Unknown [address] [facility] [address] 01/17/2020 12:00:00 AM EST [facility]CW1 [facility]) [place] [address] [facility] [address] 01/11/2020 12:00:00 AM EST eCW1 ([facility]) Outpatient [address] [facility] [address] 01/04/2020 12:00:00 AM EDT eCW1 ([facility]) Unknown [address] [facility] [address] 01/04/2020 12:00:00 AM EDT eCW1 ([facility]) Unknown [address] [facility] [address] 01/03/2020 12:00:00 AM EDT eCW1 ([facility]) Unknown [address] [facility] [address] 01/02/2020 12:00:00 AM EDT eCW1 ([facility]) Outpatient [address] [facility] [address] 12/25/2019 12:00:00 AM EDT [facility]CW1 [facility] [place] [address] [facility] [address] 12/21/2019 12:00:00 AM EDT eCW1 ([facility]) Immunizations Vaccine Date Status Description Data Source(s) COVID-19 VACCINE Moderna 02/06/2021 12:00:00 AM EST completed [facility] Vaccine Series Complete: YESThis Data wa s Submitted to [facility] Via [employer]. COVID-19 VACCINE Moderna 06/18/2020 12:00:00 AM EDT completed [facility] Vaccine Series Complete: YESThis Data wa s Submitted to [facility] Via [facility]. COVID-19 VACCINE, MRNA-1273, LNP-S (MODERNA)/PF 06/18/2020 1 2:00:00 AM EDT completed [facility] COVID-19 VACCINE Moderna 05/25/2020 12:00:00 AM EDT completed [facility] Vaccine Series Complete: NOThis Data was Submitted to [facility] Via [employer]. COVID-19 VACCINE, MRNA-1273, LNP-S (MODERNA)/PF 05/25/2020 1 2:00:00 AM EDT completed [facility] influenza, recombinant, quadrIvalent,injectable, prese rvative free 12/21/2019 04:01:00 PM EDT completed eCW1 ([facility]) influenza, recombinant, quadrIvalent,injectable, prese rvative free 12/21/2019 04:01:00 PM EDT completed eCW1 ([facility]) influenza, recombinant, quadrIvalent,injectable, prese rvative free 12/21/2019 04:01:00 PM EDT completed eCW1 ([facility]) influenza, recombinant, quadrIvalent,injectable, prese rvative free 12/21/2019 04:01:00 PM EDT completed eCW1 ([facility]) influenza, recombinant, quadrIvalent,injectable, prese rvative free 12/21/2019 04:01:00 PM EDT completed eCW1 ([facility]) influenza, recombinant, quadrIvalent,injectable, prese rvative free 12/21/2019 04:01:00 PM EDT completed eCW1 ([facility]) influenza, recombinant, quadrIvalent,injectable, prese rvative free 12/21/2019 04:01:00 PM EDT completed eCW1 ([facility]) influenza, recombinant, quadrIvalent,injectable, prese rvative free 12/21/2019 04:01:00 PM EDT completed eCW1 ([facility]) influenza, recombinant, quadrIvalent,injectable, prese rvative free 12/21/2019 04:01:00 PM EDT completed eCW1 ([facility]) influenza, recombinant, quadrIvalent,injectable, prese rvative free 12/21/2019 04:01:00 PM EDT completed eCW1 ([facility]) influenza, recombinant, quadrIvalent,injectable, prese rvative free 12/21/2019 04:01:00 PM EDT completed eCW1 ([facility]) influenza, recombinant, quadrIvalent,injectable, prese rvative free 12/21/2019 04:01:00 PM EDT completed eCW1 ([facility]) influenza, recombinant, quadrIvalent,injectable, prese rvative free 12/21/2019 04:01:00 PM EDT completed eCW1 ([facility]) influenza, recombinant, quadrIvalent,injectable, prese rvative free 12/21/2019 04:01:00 PM EDT completed eCW1 ([facility]) influenza, recombinant, quadrIvalent,injectable, prese rvative free 12/21/2019 04:01:00 PM EDT completed eCW1 ([facility]) influenza, recombinant, quadrIvalent,injectable, prese rvative free 12/21/2019 04:01:00 PM EDT completed eCW1 ([facility]) influenza, recombinant, quadrIvalent,injectable, prese rvative free 12/21/2019 04:01:00 PM EDT completed eCW1 ([facility]) influenza, recombinant, quadrIvalent,injectable, prese rvative free 12/21/2019 04:01:00 PM EDT completed eCW1 ([facility]) influenza, recombinant, quadrIvalent,injectable, prese rvative free 12/21/2019 04:01:00 PM EDT completed eCW1 ([facility]) influenza, recombinant, quadrIvalent,injectable, prese rvative free 12/21/2019 04:01:00 PM EDT completed eCW1 ([facility]) influenza, recombinant, quadrIvalent,injectable, prese rvative free 12/21/2019 04:01:00 PM EDT completed eCW1 ([facility]) influenza, recombinant, quadrIvalent,injectable, prese rvative free 12/21/2019 04:01:00 PM EDT completed eCW1 ([facility]) influenza, recombinant, quadrIvalent,injectable, prese rvative free 12/21/2019 04:01:00 PM EDT completed eCW1 ([facility]) influenza, recombinant, quadrIvalent,injectable, prese rvative free 12/21/2019 04:01:00 PM EDT completed eCW1 ([facility]) influenza, recombinant, quadrIvalent,injectable, prese rvative free 12/21/2019 04:01:00 PM EDT completed eCW1 ([facility]) influenza, recombinant, quadrIvalent,injectable, prese rvative free 12/21/2019 04:01:00 PM EDT completed eCW1 ([facility]) influenza, recombinant, quadrIvalent,injectable, prese rvative free 12/21/2019 04:01:00 PM EDT completed eCW1 ([facility]) influenza, recombinant, quadrIvalent,injectable, prese rvative free 12/21/2019 04:01:00 PM EDT completed eCW1 ([facility]) influenza, recombinant, quadrIvalent,injectable, prese rvative free 12/21/2019 04:01:00 PM EDT completed eCW1 ([facility]) influenza, recombinant, quadrIvalent,injectable, prese rvative free 12/21/2019 04:01:00 PM EDT completed eCW1 ([facility]) influenza, recombinant, quadrIvalent,injectable, prese rvative free 12/21/2019 04:01:00 PM EDT completed eCW1 ([facility]) influenza, recombinant, quadrIvalent,injectable, prese rvative free 12/21/2019 04:01:00 PM EDT completed eCW1 ([facility]) influenza, recombinant, quadrIvalent,injectable, prese rvative free 12/21/2019 04:01:00 PM EDT completed eCW1 ([facility]) influenza, recombinant, quadrIvalent,injectable, prese rvative free 12/21/2019 04:01:00 PM EDT completed eCW1 ([facility]) influenza, recombinant, quadrIvalent,injectable, prese rvative free 12/21/2019 04:01:00 PM EDT completed eCW1 ([facility]) influenza, recombinant, quadrIvalent,injectable, prese rvative free 12/21/2019 04:01:00 PM EDT completed eCW1 ([facility]) influenza, recombinant, quadrIvalent,injectable, prese rvative free 12/21/2019 04:01:00 PM EDT completed eCW1 ([facility]) influenza, recombinant, quadrIvalent,injectable, prese rvative free 12/21/2019 04:01:00 PM EDT completed eCW1 ([facility]) influenza, recombinant, quadrIvalent,injectable, prese rvative free 12/21/2019 04:01:00 PM EDT completed eCW1 ([facility]) Medications Medication Brand Name Start Date Product [...] AM EDT active Bath/Shower Seat - eCW1 ([facility]) Hand Held Shower [place] - Hand Held Shower [place] - 08/30/2020 12:00: 00 AM EDT active Hand Held Shower [place] - eCW1 ([facility]) Bath/Shower Seat - Bath/Shower Seat - 08/30/2020 12:00:00 AM EDT active Bath/Shower Seat - eCW1 ([facility]) Bath/Shower Seat - Bath/Shower Seat - 08/30/2020 12:00:00 AM EDT active Bath/Shower Seat - eCW1 ([facility]) Wall Grab Bar - Wall Grab Bar - 08/30/2020 12:00:00 AM EDT active Wall Grab Bar - eCW1 ([facility]) Hand Held Shower [place] - Hand Held Shower [place] - 08/30/2020 12:00: 00 AM EDT active Hand Held Shower [place] - eCW1 ([facility]) Hand Held Shower [place] - Hand Held Shower [place] - 08/30/2020 12:00: 00 AM EDT active Hand Held Shower [place] - eCW1 ([facility]) Hand Held Shower [place] - Hand Held Shower [place] - 08/30/2020 12:00: 00 AM EDT active Hand Held Shower [place] - eCW1 ([facility]) Hand Held Shower [place] - Hand Held Shower [place] - 08/30/2020 12:00: 00 AM EDT active Hand Held Shower [place] - eCW1 ([facility]) Wall Grab Bar - Wall Grab Bar - 08/30/2020 12:00:00 AM EDT active Wall Grab Bar - eCW1 ([facility]) Wall Grab Bar - Wall Grab Bar - 08/30/2020 12:00:00 AM EDT active Wall Grab Bar - eCW1 ([facility]) Hand Held Shower [place] - Hand Held Shower [place] - 08/30/2020 12:00: 00 AM EDT active Hand Held Shower [place] - eCW1 ([facility]) Bath/Shower Seat - Bath/Shower Seat - 08/30/2020 12:00:00 AM EDT active Bath/Shower Seat - eCW1 ([facility]) Bath/Shower Seat - Bath/Shower Seat - 08/30/2020 12:00:00 AM EDT active Bath/Shower Seat - eCW1 ([facility]) Hand Held Shower [place] - Hand Held Shower [place] - 08/30/2020 12:00: 00 AM EDT active Hand Held Shower [place] - eCW1 ([facility]) Wall Grab Bar - Wall Grab Bar - 08/30/2020 12:00:00 AM EDT active Wall Grab Bar - eCW1 ([facility]) Wall Grab Bar - Wall Grab Bar - 08/30/2020 12:00:00 AM EDT active Wall Grab Bar - eCW1 ([facility]) Bath/Shower Seat - Bath/Shower Seat - 08/30/2020 12:00:00 AM EDT active Bath/Shower Seat - eCW1 ([facility]) Bath/Shower Seat - Bath/Shower Seat - 08/30/2020 12:00:00 AM EDT active Bath/Shower Seat - eCW1 ([facility]) Hand Held Shower [place] - Hand Held Shower [place] - 08/30/2020 12:00: 00 AM EDT active Hand Held Shower [place] - eCW1 ([facility]) Hand Held Shower [place] - Hand Held Shower [place] - 08/30/2020 12:00: 00 AM EDT active Hand Held Shower [place] - eCW1 ([facility]) Wall Grab Bar - Wall Grab Bar - 08/30/2020 12:00:00 AM EDT active Wall Grab Bar - eCW1 ([facility]) Wall Grab Bar - Wall Grab Bar - 08/30/2020 12:00:00 AM EDT active Wall Grab Bar - eCW1 ([facility]) Hand Held Shower [place] - Hand Held Shower [place] - 08/30/2020 12:00: 00 AM EDT active Hand Held Shower [place] - eCW1 ([facility]) Hand Held Shower [place] - Hand Held Shower [place] - 08/30/2020 12:00: 00 AM EDT active Hand Held Shower [place] - eCW1 ([facility]) Wall Grab Bar - Wall Grab Bar - 08/30/2020 12:00:00 AM EDT active Wall Grab Bar - eCW1 ([facility]) Bath/Shower Seat - Bath/Shower Seat - 08/30/2020 12:00:00 AM EDT active Bath/Shower Seat - eCW1 ([facility]) Wall Grab Bar - Wall Grab Bar - 08/30/2020 12:00:00 AM EDT active Wall Grab Bar - eCW1 ([facility]) Wall Grab Bar - Wall Grab Bar - 08/30/2020 12:00:00 AM EDT active Wall Grab Bar - eCW1 ([facility]) Bath/Shower Seat - Bath/Shower Seat - 08/30/2020 12:00:00 AM EDT active Bath/Shower Seat - eCW1 ([facility]) Bath/Shower Seat - Bath/Shower Seat - 08/30/2020 12:00:00 AM EDT active Bath/Shower Seat - eCW1 ([facility]) Wall Grab Bar - Wall Grab Bar - 08/30/2020 12:00:00 AM EDT active Wall Grab Bar - eCW1 ([facility]) Bath/Shower Seat - Bath/Shower Seat - 08/30/2020 12:00:00 AM EDT active Bath/Shower Seat - eCW1 ([facility]) Wall Grab Bar - Wall Grab Bar - 08/30/2020 12:00:00 AM EDT active Wall Grab Bar - eCW1 ([facility]) Wall Grab Bar - Wall Grab Bar - 08/30/2020 12:00:00 AM EDT active Wall Grab Bar - eCW1 ([facility]) Hand Held Shower [place] - Hand Held Shower [place] - 08/30/2020 12:00: 00 AM EDT active Hand Held Shower [place] - eCW1 ([facility]) Wall Grab Bar - Wall Grab Bar - 08/30/2020 12:00:00 AM EDT active Wall Grab Bar - eCW1 ([facility]) Hand Held Shower [place] - Hand Held Shower [place] - 08/30/2020 12:00: 00 AM EDT active Hand Held Shower [place] - eCW1 ([facility]) Hand Held Shower [place] - Hand Held Shower [place] - 08/30/2020 12:00: 00 AM EDT active Hand Held Shower [place] - eCW1 ([facility]) Bath/Shower Seat - Bath/Shower Seat - 08/30/2020 12:00:00 AM EDT active Bath/Shower Seat - eCW1 ([facility]) Bath/Shower Seat - Bath/Shower Seat - 08/30/2020 12:00:00 AM EDT active Bath/Shower Seat - eCW1 ([facility]) Hand Held Shower [place] - Hand Held Shower [place] - 08/30/2020 12:00: 00 AM EDT active Hand Held Shower [place] - eCW1 ([facility]) Bath/Shower Seat - Bath/Shower Seat - 08/30/2020 12:00:00 AM EDT active Bath/Shower Seat - eCW1 ([facility]) Wall Grab Bar - Wall Grab Bar - 08/30/2020 12:00:00 AM EDT active Wall Grab Bar - eCW1 ([facility]) Bath/Shower Seat - Bath/Shower Seat - 08/30/2020 12:00:00 AM EDT active Bath/Shower Seat - eCW1 ([facility]) Wall Grab Bar - Wall Grab Bar - 08/30/2020 12:00:00 AM EDT active Wall Grab Bar - eCW1 ([facility]) Hand Held Shower [place] - Hand Held Shower [place] - 08/30/2020 12:00: 00 AM EDT active Hand Held Shower [place] - eCW1 ([facility]) Wall Grab Bar - Wall Grab Bar - 08/30/2020 12:00:00 AM EDT active Wall Grab Bar - eCW1 ([facility]) Hand Held Shower [place] - Hand Held Shower [place] - 08/30/2020 12:00: 00 AM EDT active Hand Held Shower [place] - eCW1 ([facility]) Bath/Shower Seat - Bath/Shower Seat - 08/30/2020 12:00:00 AM EDT active Bath/Shower Seat - eCW1 ([facility]) Bath/Shower Seat - Bath/Shower Seat - 08/30/2020 12:00:00 AM EDT active Bath/Shower Seat - eCW1 ([facility]) Diclofenac Sodium 50 MG Delayed Release Oral Tablet Diclofen ac Sodium 50 MG 01/17/2020 12:00:00 AM EST 1.0 {tablet} active Diclofenac Sodium 50 MG eCW1 ([facility]) Diclofenac Sodium 50 MG Delayed Release Oral Tablet Diclofen ac Sodium 50 MG 01/17/2020 12:00:00 AM EST 1.0 {tablet} active Diclofenac Sodium 50 MG eCW1 ([facility]) Diclofenac Sodium 50 MG Delayed Release Oral Tablet Diclofen ac Sodium 50 MG 01/17/2020 12:00:00 AM EST 1.0 {tablet} active Diclofenac Sodium 50 MG eCW1 ([facility]) Diclofenac Sodium 50 MG Delayed Release Oral Tablet Diclofen ac Sodium 50 MG 01/17/2020 12:00:00 AM EST 1.0 {tablet} active Diclofenac Sodium 50 MG eCW1 ([facility]) Diclofenac Sodium 50 MG Delayed Release Oral Tablet Diclofen ac Sodium 50 MG 01/17/2020 12:00:00 AM EST 1.0 {tablet} active Diclofenac Sodium 50 MG eCW1 ([facility]) Diclofenac Sodium 50 MG Delayed Release Oral Tablet Diclofen ac Sodium 50 MG 01/17/2020 12:00:00 AM EST 1.0 {tablet} active Diclofenac Sodium 50 MG eCW1 ([facility]) Diclofenac Sodium 50 MG Delayed Release Oral Tablet Diclofen ac Sodium 50 MG 01/17/2020 12:00:00 AM EST 1.0 {tablet} active Diclofenac Sodium 50 MG eCW1 ([facility]) Diclofenac Sodium 50 MG Delayed Release Oral Tablet Diclofen ac Sodium 50 MG 01/17/2020 12:00:00 AM EST 1.0 {tablet} active Diclofenac Sodium 50 MG eCW1 ([facility]) Diclofenac Sodium 50 MG Delayed Release Oral Tablet Diclofen ac Sodium 50 MG 01/17/2020 12:00:00 AM EST 1.0 {tablet} active Diclofenac Sodium 50 MG eCW1 ([facility]) Diclofenac Sodium 50 MG Delayed Release Oral Tablet Diclofen ac Sodium 50 MG 01/17/2020 12:00:00 AM EST 1.0 {tablet} active Diclofenac Sodium 50 MG eCW1 ([facility]) Diclofenac Sodium 50 MG Delayed Release Oral Tablet Diclofen ac Sodium 50 MG 01/17/2020 12:00:00 AM EST 1.0 {tablet} active Diclofenac Sodium 50 MG eCW1 ([facility]) Diclofenac Sodium 50 MG Delayed Release Oral Tablet Diclofen ac Sodium 50 MG 01/17/2020 12:00:00 AM EST 1.0 {tablet} active Diclofenac Sodium 50 MG eCW1 ([facility]) Diclofenac Sodium 50 MG Delayed Release Oral Tablet Diclofen ac Sodium 50 MG 01/17/2020 12:00:00 AM EST 1.0 {tablet} active Diclofenac Sodium 50 MG eCW1 ([facility]) Diclofenac Sodium 50 MG Delayed Release Oral Tablet Diclofen ac Sodium 50 MG 01/17/2020 12:00:00 AM EST 1.0 {tablet} active Diclofenac Sodium 50 MG eCW1 ([facility]) Diclofenac Sodium 50 MG Delayed Release Oral Tablet Diclofen ac Sodium 50 MG 01/17/2020 12:00:00 AM EST 1.0 {tablet} active Diclofenac Sodium 50 MG eCW1 ([facility]) Diclofenac Sodium 50 MG Delayed Release Oral Tablet Diclofen ac Sodium 50 MG 01/17/2020 12:00:00 AM EST 1.0 {tablet} active Diclofenac Sodium 50 MG eCW1 ([facility]) Diclofenac Sodium 50 MG Delayed Release Oral Tablet Diclofen ac Sodium 50 MG 01/17/2020 12:00:00 AM EST 1.0 {tablet} active Diclofenac Sodium 50 MG eCW1 ([facility]) Diclofenac Sodium 50 MG Delayed Release Oral Tablet Diclofen ac Sodium 50 MG 01/17/2020 12:00:00 AM EST 1.0 {tablet} active Diclofenac Sodium 50 MG eCW1 ([facility]) Diclofenac Sodium 50 MG Delayed Release Oral Tablet Diclofen ac Sodium 50 MG 01/17/2020 12:00:00 AM EST 1.0 {tablet} active Diclofenac Sodium 50 MG eCW1 ([facility]) Diclofenac Sodium 50 MG Delayed Release Oral Tablet Diclofen ac Sodium 50 MG 01/17/2020 12:00:00 AM EST 1.0 {tablet} active Diclofenac Sodium 50 MG eCW1 ([facility]) Diclofenac Sodium 50 MG Delayed Release Oral Tablet Diclofen ac Sodium 50 MG 01/17/2020 12:00:00 AM EST 1.0 {tablet} active Diclofenac Sodium 50 MG eCW1 ([facility]) Diclofenac Sodium 50 MG Delayed Release Oral Tablet Diclofen ac Sodium 50 MG 01/17/2020 12:00:00 AM EST 1.0 {tablet} active Diclofenac Sodium 50 MG eCW1 ([facility]) Diclofenac Sodium 50 MG Delayed Release Oral Tablet Diclofen ac Sodium 50 MG 01/17/2020 12:00:00 AM EST 1.0 {tablet} active Diclofenac Sodium 50 MG eCW1 ([facility]) Diclofenac Sodium 50 MG Delayed Release Oral Tablet Diclofen ac Sodium 50 MG 01/17/2020 12:00:00 AM EST 1.0 {tablet} active Diclofenac Sodium 50 MG eCW1 ([facility]) Diclofenac Sodium 50 MG Delayed Release Oral Tablet Diclofen ac Sodium 50 MG 01/17/2020 12:00:00 AM EST 1.0 {tablet} active Diclofenac Sodium 50 MG eCW1 ([facility]) Diclofenac Sodium 50 MG Delayed Release Oral Tablet Diclofen ac Sodium 50 MG 01/17/2020 12:00:00 AM EST 1.0 {tablet} active Diclofenac Sodium 50 MG eCW1 ([facility]) Insurance Providers Payer name Policy type / Coverage type Policy ID Covered green party ID Covered green party's relationship to paige Policy Paige Plan Information MEDICARE [id number] SP [id number] A MEDICARE [id number] SP [id number] A MEDICAID [id number] SP [id number] MEDICAID M [id number] Self [id number] HUMANA MEDICARE ADVANTAGE G [id number] Self [id number] AETNA MEDICARE [id number] SP [id number] MEDICARE [id number] SP [id number] HUMANA GOLD [id number] SP [id number] EMEDNY [id number] SP [id number] WELLCARE [id number] SP [id number] HUMANA GOLD O [id number] S [id number] MEDICAID M [id number] S [id number] MEDICARE C [id number] S [id number] MEDICAID [id number] SP [id number] ANSI-Medicaid [id number] ANSI-Medicare Part B [id number] ANSI-Medicare Part B [id number] ANSI-Medicaid [id number] ANSI-Medicaid [id number] ANSI-Medicare Part B [id number] ANSI-Medicare Part B [id number] ANSI-Medicaid [id number] ANSI-Medicaid [id number] ANSI-Medicare Part B [id number] ANSI-Medicare Part B [id number] ANSI-Medicaid [id number] ANSI-Medicare Part B [id number] [facility]-Medicaid [id number] ANSI-Medicaid [id number] ANSI-Medicare Part B [id number] ANSI-Medicaid [id number] ANSI-Medicare Part B [id number] ANSI-Medicaid [id number] ANSI-Medicare Part B [id number] ANSI-Medicaid [id number] ANSI-Medicare Part B [id number] ANSI-Medicaid [id number] ANSI-Medicare Part B [id number] ANSI-Medicaid [id number] ANSI-Medicare Part B [id number] ANSI-Medicaid [id number] ANSI-Medicare Part B [id number] ANSI-Medicaid [id number] ANSI-Medicare Part B [id number] ANSI-Medicaid [id number] ANSI-Medicare Part B [id number] ANSI-Medicare Part B [id number] ANSI-Medicaid [id number] ANSI-Medicare Part B [id number] ANSI-Medicaid [id number] MEDICARE [id number] SP [id number] A Medicaid [facility] Part B [id number] Self [id number] Medicare [facility] Medicare Primary [id number] Self [id number] ANSI-Medicare Part B [id number] ANSI-Medicaid [id number] ANSI-Medicare Part B [id number] ANSI-Medicaid [id number] ANSI-Medicaid [id number] ANSI-Medicare Part B [id number] ANSI-Medicare Part B [id number] ANSI-Medicaid [id number] ANSI-Medicaid [id number] ANSI-Medicare Part B [id number] ANSI-Medicaid [id number] ANSI-Medicare Part B [id number] ANSI-Medicare Part B [id number] [facility]-Medicaid [id number] MEDICARE C [id number] S [id number] A Medicaid Medicaid [id number] S elf [id number] Medicare Medicare Primary [id number] Self [id number] MEDICAID [id number] SP [id number] Medicaid Medicaid [id number] Self Medicare Medicare Primary [id number] Self BALAJI [id number] SP [id number] AETNA MEDICARE [id number] SP [id number] AETNA MEDICARE [id number] SP [id number] [facility] MEDICAID [id number] SP [id number] HUMANA GOLD [id number] SP [id number] BALAJI [id number] SP [id number] MEDICARE [id number] SP [id number] Problems, Conditions, and Diagnoses Code Display Name Description Problem Type Effective Dates Data Source(s) R20.2 [id number] Paresthesia of both feet Problem 08/12/2020 12:00:00 AM EDT eCW1 ([facility]) Surgeries/Procedures Procedure Description Date Indications Data Source(s) PHYSICIAN TELEPHONE EVALUATION 5-10 MIN 11/05/2020 12: 00:00 AM EDT MEDENT ([facility]) OFFICE OUTPATIENT VISIT 15 MINUTES 11/05/2020 12:00:00 AM EDT MEDENT ([facility]) OFFICE OUTPATIENT VISIT 15 MINUTES 08/28/2020 12:00:00 AM EDT MEDENT ([facility]) PHYSICIAN TELEPHONE EVALUATION 5-10 MIN 05/20/2020 12: 00:00 AM EDT MEDENT ([facility]) RADEX SHOULDER COMPLETE MINIMUM 2 VIEWS 04/26/2020 12: 00:00 AM EST MEDENT ([facility]) OFFICE OUTPATIENT VISIT 25 MINUTES 04/26/2020 12:00:00 AM EST MEDENT ([facility]) Physical Therapy Eval - Low Complexity 03/21/2020 12:0 0:00 AM EST MEDENT ([facility]) RADEX SHOULDER COMPLETE MINIMUM 2 VIEWS 02/22/2020 12: 00:00 AM EST MEDENT ([facility]) Immunization: Flublok Quadrivalent (18 years & older) 0.5mL IM (Influenza) 12/21/2019 12:00:00 AM EDT eCW1 ([facility]) Results ID Date Data Source [id number] 01/02/2021 09:56:00 PM EDT [facility] Name Value Range Interpretation Code Description Data Sparkle rce(s) Supporting Document(s) SARS coronavirus 2 RNA [Presence] in Res piratory specimen by MICHELLE with probe detection NEGATIVE [facility] This lab was ordered by [facility] a nd reported by [facility]. ID Date Data Source [id number] 08/14/2020 12:00:00 AM EDT eCW1 ([facility]) Name Value Range Interpretation Code Description Data Sparkle rce(s) Supporting Document(s) 1092 VITAMIN B12 LEVEL eCW1 ([facility]) 23.9 FOLATE eCW1 ([facility]) ID Date Data Source [id number] 07/19/2020 08:45:00 PM EDT [facility] Name Value Range Interpretation Code Description Data Sparkle rce(s) Supporting Document(s) SARS-CoV-2 (COVID 19) NEGATIVE - SARS-CoV-2 (COVID19) [facility] This lab was ordered by [facility] a nd reported by [facility]. ID Date Data Source [id number] 07/02/2020 04:50:00 AM EDT [facility] Name Value Range Interpretation Code Description Data Sparkle rce(s) Supporting Document(s) SARS coronavirus 2 RNA [Presence] in Res piratory specimen by MICHELLE with probe detection NEGATIVE [facility] This lab was ordered by [facility] a nd reported by [facility]. ID Date Data Source [id number] 06/05/2020 03:47:00 PM EDT [facility] Name Value Range Interpretation Code Description Data Sparkle rce(s) Supporting Document(s) SARS-CoV-2 (COVID 19) NEGATIVE - SARS-CoV-2 (COVID19) [facility] This lab was ordered by [facility] a nd reported by [facility]. ID Date Data Source [id number] 05/31/2020 03:07:00 PM EDT [facility] Name Value Range Interpretation Code Description Data Sparkle rce(s) Supporting Document(s) SARS coronavirus 2 RNA [Presence] in Res piratory specimen by MICHELLE with probe detection NEGATIVE [facility] This lab was ordered by [facility] a nd reported by [facility]. ID Date Data Source LIPID PANEL (CARDIAC RISK) 12/22/2019 11:32:11 AM EDT eCW1 ( [facility]) Name Value Range Interpretation Code Description Data Sparkle rce(s) Supporting Document(s) Cholesterol [Moles/volume] in Serum or Plasma 168 CHOLESTEROL LEVEL eCW1 ([facility]) Cholesterol in HDL [Moles/volume] in Serum or Plasma 90 HDL CHOLESTEROL eCW1 ([facility]) Triglyceride [Mass/volume] in Serum or Plasma by calculation 76 TRIGLYCERIDES LEVEL eCW1 ([facility]) 78 NON-HDL-C eCW1 ([facility]) 1.866 CHOLESTEROL RISK RATIO eCW1 ([facility]) Cholesterol in LDL [Mass/volume] in Serum or Plasma by calculation 63 LDL CHOLESTEROL eCW1 ([facility]) ID Date Data Source VITAMIN D [id number] 12/22/2019 11:32:11 AM EDT eCW1 ([facility]) Name Value Range Interpretation Code Description Data Sparkle rce(s) Supporting Document(s) 49.6 TOTAL 25(OH) VITAMIN D eCW1 ([facility]) ID Date Data Source [id number] 12/22/2019 11:32:11 AM EDT eCW1 ([facility]) Name Value Range Interpretation Code Description Data Sparkle rce(s) Supporting Document(s) Hemoglobin A1c/Hemoglobin.total in Blood 5.4 eCW1 ([facility]) ID Date Data Source FREE T4 & TSH PANEL 12/22/2019 11:32:11 AM EDT eCW1 ([facility]) Name Value Range Interpretation Code Description Data Sparkle rce(s) Supporting Document(s) 0.91 FREE T4 eCW1 ([facility]) 3.520 THYROID STIMULATING HORMONE eC W1 ([facility]) ID Date Data Source Comprehensive Metabolic Profile (CMP) 12/22/2019 11:32:10 AM EDT eCW1 ([facility]) Name Value Range Interpretation Code Description Data Sparkle rce(s) Supporting Document(s) > 60.0 GLOMERULAR FILTRATION RATE eCW 1 ([facility]) 10 BLOOD UREA NITROGEN [facility] 89 GLUCOSE, FASTING eCW1 ([facility]) 0.72 CREATININE FOR GFR eCW1 ([facility]) 27 CARBON DIOXIDE LEVEL eCW1 ([facility]) 4.5 POTASSIUM SERUM eCW1 ([facility]) 94 CHLORIDE LEVEL eCW1 ([facility]) 127 SODIUM LEVEL eCW1 ([facility]) 8.8 CALCIUM LEVEL eCW1 ([facility]) 26 ALT/SGPT eCW1 ([facility]) 65 ALKALINE PHOSPHATASE eCW1 ([facility]) 18 AST/SGOT eCW1 ([facility]) 3.7 ALBUMIN eCW1 ([facility]) 6.2 TOTAL PROTEIN eCW1 ([facility]) 0.2 BILIRUBIN,TOTAL eCW1 ([facility]) 1.5 ALBUMIN/GLOBULIN RATIO eCW1 ([facility]) Procedure Social History Code Duration Value Status Description Data Source(s ) Smoking 12/06/2020 12:00:00 AM EDT Never Smoker completed Never S moker eCW1 ([facility]) Smoking 12/06/2020 12:00:00 AM EDT Never Smoker completed Never S moker eCW1 ([facility]) Smoking 12/06/2020 12:00:00 AM EDT Never Smoker completed Never S moker eCW1 ([facility]) Smoking 12/06/2020 12:00:00 AM EDT Never Smoker completed Never S moker eCW1 ([facility]) Smoking 12/06/2020 12:00:00 AM EDT Never Smoker completed Never S moker eCW1 ([facility]) Smoking 12/06/2020 12:00:00 AM EDT Never Smoker completed Never S moker eCW1 ([facility]) Smoking 11/14/2020 12:00:00 AM EDT Never Smoker completed Never S moker eCW1 ([facility]) Smoking 11/14/2020 12:00:00 AM EDT Never Smoker completed Never S moker eCW1 ([facility]) Smoking 11/14/2020 12:00:00 AM EDT Never Smoker completed Never S moker eCW1 ([facility]) Smoking 09/03/2020 12:00:00 AM EDT Never Smoker completed Never S moker eCW1 ([facility]) Smoking 09/03/2020 12:00:00 AM EDT Never Smoker completed Never S moker eCW1 ([facility]) Smoking 09/03/2020 12:00:00 AM EDT Never Smoker completed Never S moker eCW1 ([facility]) Smoking 09/03/2020 12:00:00 AM EDT Never Smoker completed Never S moker eCW1 ([facility]) Smoking 09/03/2020 12:00:00 AM EDT Never Smoker completed Never S moker eCW1 ([facility]) Smoking 09/03/2020 12:00:00 AM EDT Never Smoker completed Never S moker eCW1 ([facility]) Smoking 08/12/2020 12:00:00 AM EDT Never Smoker completed Never S moker eCW1 ([facility]) Smoking 08/12/2020 12:00:00 AM EDT Never Smoker completed Never S moker eCW1 ([facility]) Smoking 08/12/2020 12:00:00 AM EDT Never Smoker completed Never S moker eCW1 ([facility]) Smoking 04/19/2020 12:00:00 AM EST Never Smoker completed Never S moker eCW1 ([facility]) Smoking 04/19/2020 12:00:00 AM EST Never Smoker completed Never S moker eCW1 ([facility]) Smoking 04/19/2020 12:00:00 AM EST Never Smoker completed Never S moker eCW1 ([facility]) Smoking 04/19/2020 12:00:00 AM EST Never Smoker completed Never S moker eCW1 ([facility]) Smoking 04/19/2020 12:00:00 AM EST Never Smoker completed Never S moker eCW1 ([facility]) Smoking 04/19/2020 12:00:00 AM EST Never Smoker completed Never S moker eCW1 ([facility]) Smoking 04/19/2020 12:00:00 AM EST Never Smoker completed Never S moker eCW1 ([facility]) Smoking 04/19/2020 12:00:00 AM EST Never Smoker completed Never S moker eCW1 ([facility]) Smoking 03/14/2020 12:00:00 AM EST Never Smoker completed Never S moker eCW1 ([facility]) Smoking 03/06/2020 12:00:00 AM EST Never Smoker completed Never S moker eCW1 ([facility]) Smoking 01/17/2020 12:00:00 AM EST Never Smoker completed Never S moker eCW1 ([facility]) Smoking 01/17/2020 12:00:00 AM EST Never Smoker completed Never S moker eCW1 ([facility]) Smoking 01/17/2020 12:00:00 AM EST Never Smoker completed Never S moker eCW1 ([facility]) Smoking 01/17/2020 12:00:00 AM EST Never Smoker completed Never S moker eCW1 ([facility]) Smoking 01/04/2020 12:00:00 AM EDT Never Smoker completed Never S moker eCW1 ([facility]) Smoking 01/04/2020 12:00:00 AM EDT Never Smoker completed Never S moker eCW1 ([facility]) Smoking 01/04/2020 12:00:00 AM EDT Never Smoker completed Never S moker eCW1 ([facility]) Smoking 01/04/2020 12:00:00 AM EDT Never Smoker completed Never S moker eCW1 ([facility]) Smoking 12/25/2019 12:00:00 AM EDT Never Smoker completed Never S moker eCW1 ([facility]) Smoking 12/25/2019 12:00:00 AM EDT Never Smoker completed Never S moker eCW1 ([facility]) Smoking 12/25/2019 12:00:00 AM EDT Never Smoker completed Never S moker eCW1 ([facility]) Vital Signs ID Date Data Source UNK Name Value Range Interpretation Code Description Data Source(s) Body weight 169.2 [lb_av] 169.2 [lb_av] eCW1 ([facility]) Body weight 76.75 kg 76.75 kg eCW1 ([facility]) Body height 56.25 [in_i] 56.25 [in_i] eCW1 ([facility]) Body mass index (BMI) [Ratio] 37.59 kg/m2 37.59 kg/m2 W1 ([facility]) Heart rate 66 /min 66 /min eCW1 ([facility]) Respiratory rate 18 /min 18 /min eCW1 ([facility]) Body temperature 98.4 [degF] 98.4 [degF] eCW1 ( [facility]) Systolic blood pressure 132 mm[Hg] 132 mm[Hg] e CW1 ([facility]) Diastolic blood pressure 61 mm[Hg] 61 mm[Hg] eCW1 ([facility]) Body weight 165 [lb_av] 165 [lb_av] eCW1 ([facility]) Body weight 74.84 kg 74.84 kg eCW1 ([facility]) Body height 56.25 [in_i] 56.25 [in_i] eCW1 ([facility]) Body mass index (BMI) [Ratio] 36.66 kg/m2 36.66 kg/m2 eCW1 ([facility]) Heart rate 89 /min 89 /min eCW1 ([facility]) Respiratory rate 18 /min 18 /min eCW1 ([facility]) Body temperature 98.0 [degF] 98.0 [degF] eCW1 ( [facility]) Systolic blood pressure 132 mm[Hg] 132 mm[Hg] e CW1 ([facility]) Diastolic blood pressure 72 mm[Hg] 72 mm[Hg] eCW1 ([facility]) Body weight 164.8 [lb_av] 164.8 [lb_av] eCW1 ([facility]) Body height 56.25 [in_i] 56.25 [in_i] eCW1 ([facility]) Body mass index (BMI) [Ratio] 36.62 kg/m2 36.62 kg/m2 eCW1 ([facility]) Heart rate 66 /min 66 /min eCW1 ([facility]) Respiratory rate 18 /min 18 /min eCW1 ([facility]) Body temperature 99 [degF] 99 [degF] eCW1 ([facility]) Systolic blood pressure 135 mm[Hg] 135 mm[Hg] e CW1 ([facility]) Diastolic blood pressure 69 mm[Hg] 69 mm[Hg] eCW1 ([facility]) Body height 57 [in_i] 57 [in_i] MEDENT ([facility]) 4'9" Body weight 163.00 [lb_av] 163.00 [lb_av] MEDEN T ([facility]) Body mass index (BMI) [Ratio] 35.3 kg/m2 35.3 k g/m2 MEDENT ([facility]) Body weight 162 [lb_av] 162 [lb_av] eCW1 ([facility]) Body height 56.25 [in_i] 56.25 [in_i] eCW1 ([facility]) Body mass index (BMI) [Ratio] 35.99 kg/m2 35.99 kg/m2 eCW1 ([facility]) Heart rate 95 /min 95 /min eCW1 ([facility]) Respiratory rate 18 /min 18 /min eCW1 ([facility]) Body temperature 98.1 [degF] 98.1 [degF] eCW1 ( [facility]) Systolic blood pressure 112 mm[Hg] 112 mm[Hg] e CW1 ([facility]) Diastolic blood pressure 74 mm[Hg] 74 mm[Hg] eCW1 ([facility]) Diastolic blood pressure 72 mm[Hg] 72 mm[Hg] eCW1 ([facility]) Body weight 170 [lb_av] 170 [lb_av] eCW1 ([facility]) Body height 56.25 [in_i] 56.25 [in_i] eCW1 ([facility]) Body mass index (BMI) [Ratio] 37.77 kg/m2 37.77 kg/m2 eCW1 ([facility]) Heart rate 91 /min 91 /min eCW1 ([facility]) Respiratory rate 18 /min 18 /min eCW1 ([facility]) Body temperature 99.2 [degF] 99.2 [degF] eCW1 ( [facility]) Systolic blood pressure 104 mm[Hg] 104 mm[Hg] e CW1 ([facility]) Body weight 168 [lb_av] 168 [lb_av] eCW1 ([facility]) Body height 56.25 [in_i] 56.25 [in_i] eCW1 ([facility]) Body mass index (BMI) [Ratio] 37.33 kg/m2 37.33 kg/m2 eCW1 ([facility]) Heart rate 115 /min 115 /min eCW1 ([facility]) Respiratory rate 18 /min 18 /min eCW1 ([facility]) Body temperature 99.8 [degF] 99.8 [degF] eCW1 ( [facility]) Systolic blood pressure 102 mm[Hg] 102 mm[Hg] e CW1 ([facility]) Diastolic blood pressure 78 mm[Hg] 78 mm[Hg] eCW1 ([facility]) Body weight 172.4 [lb_av] 172.4 [lb_av] eCW1 ([facility]) Body height 56.25 [in_i] 56.25 [in_i] eCW1 ([facility]) Body mass index (BMI) [Ratio] 38.30 kg/m2 38.30 kg/m2 eCW1 ([facility]) Heart rate 102 /min 102 /min eCW1 ([facility]) Respiratory rate 18 /min 18 /min eCW1 ([facility]) Body temperature 98.1 [degF] 98.1 [degF] eCW1 ( [facility]) Systolic blood pressure 138 mm[Hg] 138 mm[Hg] e CW1 ([facility]) Diastolic blood pressure 86 mm[Hg] 86 mm[Hg] eCW1 ([facility]) Body weight 169.2 [lb_av] 169.2 [lb_av] eCW1 ([facility]) Body height 56.25 [in_i] 56.25 [in_i] eCW1 ([facility]) Body mass index (BMI) [Ratio] 37.59 kg/m2 37.59 kg/m2 eCW1 ([facility]) Heart rate 102 /min 102 /min eCW1 ([facility]) Respiratory rate 18 /min 18 /min eCW1 ([facility]) Body temperature 96.9 [degF] 96.9 [degF] eCW1 ( [facility]) Systolic blood pressure 115 mm[Hg] 115 mm[Hg] e CW1 ([facility]) Diastolic blood pressure 62 mm[Hg] 62 mm[Hg] eCW1 ([facility]) Body weight 171 [lb_av] 171 [lb_av] eCW1 ([facility]) Body height 56.25 [in_i] 56.25 [in_i] eCW1 ([facility]) Body mass index (BMI) [Ratio] 37.99 kg/m2 37.99 kg/m2 eCW1 ([facility]) Heart rate 106 /min 106 /min eCW1 ([facility]) Respiratory rate 18 /min 18 /min eCW1 ([facility]) Body temperature 98.6 [degF] 98.6 [degF] eCW1 ( [facility]) Systolic blood pressure 130 mm[Hg] 130 mm[Hg] e CW1 ([facility]) Diastolic blood pressure 78 mm[Hg] 78 mm[Hg] eCW1 ([facility]) Body weight 170.2 [lb_av] 170.2 [lb_av] eCW1 ([facility]) Body height 56.25 [in_i] 56.25 [in_i] eCW1 ([facility]) Body mass index (BMI) [Ratio] 37.82 kg/m2 37.82 kg/m2 eCW1 ([facility]) Heart rate 95 /min 95 /min eCW1 ([facility]) Respiratory rate 18 /min 18 /min eCW1 ([facility]) Body temperature 98.2 [degF] 98.2 [degF] eCW1 ( [facility]) Systolic blood pressure 114 mm[Hg] 114 mm[Hg] e CW1 ([facility]) Diastolic blood pressure 70 mm[Hg] 70 mm[Hg] eCW1 ([facility]) Body weight 172 [lb_av] 172 [lb_av] eCW1 ([facility]) Body height 56.25 [in_i] 56.25 [in_i] eCW1 ([facility]) Body mass index (BMI) [Ratio] 38.22 kg/m2 38.22 kg/m2 eCW1 ([facility]) Heart rate 107 /min 107 /min eCW1 ([facility]) Respiratory rate 18 /min 18 /min eCW1 ([facility]) Body temperature 99.1 [degF] 99.1 [degF] eCW1 ( [facility]) Systolic blood pressure 110 mm[Hg] 110 mm[Hg] e CW1 ([facility]) Diastolic blood pressure 78 mm[Hg] 78 mm[Hg] eCW1 ([facility]) Patient Treatment Plan of Care Planned Activity Planned Date Details Description Data Source (s) Bath/Shower Seat - 08/30/2020 12:00:00 AM EDT eCW1 ([facility]) Hand Held Shower [place] - 08/30/2020 12:00:00 AM EDT eCW1 ([facility]) Wall Grab Bar - 08/30/2020 12:00:00 AM EDT eCW1 ([facility]) Bath/Shower Seat - 08/30/2020 12:00:00 AM EDT eCW1 ([facility]) Hand Held Shower [place] - 08/30/2020 12:00:00 AM EDT eCW1 ([facility]) Wall Grab Bar - 08/30/2020 12:00:00 AM EDT eCW1 ([facility]) Diclofenac Sodium 50 MG Delayed Release Oral Tablet 01/17/20 12:00:00 AM EST eCW1 ([facility]) Diclofenac Sodium 50 MG Delayed Release Oral Tablet 01/17/20 12:00:00 AM EST eCW1 ([facility]) Diclofenac Sodium 50 MG Delayed Release Oral Tablet 01/17/20 12:00:00 AM EST eCW1 ([facility]) Diclofenac Sodium 50 MG Delayed Release Oral Tablet 01/17/20 12:00:00 AM EST eCW1 ([facility]) Diclofenac Sodium 50 MG Delayed Release Oral Tablet 01/17/20 12:00:00 AM EST eCW1 ([facility]) Diclofenac Sodium 50 MG Delayed Release Oral Tablet 01/17/20 12:00:00 AM EST eCW1 ([facility]) Diclofenac Sodium 50 MG Delayed Release Oral Tablet 01/17/20 12:00:00 AM EST eCW1 ([facility]) Diclofenac Sodium 50 MG Delayed Release Oral Tablet 01/17/20 12:00:00 AM EST eCW1 ([facility]) Diclofenac Sodium 50 MG Delayed Release Oral Tablet 01/17/20 12:00:00 AM EST eCW1 ([facility]) Diclofenac Sodium 50 MG Delayed Release Oral Tablet 01/17/20 12:00:00 AM EST eCW1 ([facility]) Diclofenac Sodium 50 MG Delayed Release Oral Tablet 01/17/20 12:00:00 AM EST eCW1 ([facility]) Diclofenac Sodium 50 MG Delayed Release Oral Tablet 01/17/20 12:00:00 AM EST eCW1 ([facility]) Diclofenac Sodium 50 MG Delayed Release Oral Tablet 01/17/20 12:00:00 AM EST eCW1 ([facility]) Diclofenac Sodium 50 MG Delayed Release Oral Tablet 01/17/20 12:00:00 AM EST eCW1 ([facility] hospital) Diclofenac Sodium 50 MG Delayed Release Oral Tablet 01/17/20 12:00:00 AM EST eCW1 ([facility] hospital) Diclofenac Sodium 50 MG Delayed Release Oral Tablet 01/17/20 12:00:00 AM EST eCW1 ([facility]) Diclofenac Sodium 50 MG Delayed Release Oral Tablet 01/17/20 12:00:00 AM EST eCW1 ([facility] hospital)
--- NOTE | 2021-02-17 01:37 | HPEPDOC ---
[facility] Medical History & Physical Date of Admission Feb 17, 2021 Date of Service: Feb 16, 2021 History and Physical CHIEF COMPLAINT: anxiety HISTORY OF PRESENT ILLNESS: Ms. Felix is a pleasant 65-year-old female with a past medical history of hypertension,, asthma hypothyroidism, ductal carcinoma in situ, obesity, neurocognitive impairment, schizophrenia as well as anxiety. She has had several admissions to [facility] at [facility] in the past. She presents to the ER complaining of severe anxiety refractory to her medications at home. She states that she has a hard time during the holidays due to her parents passing in May of this year. She was found to have hyponatremia on BMP of sodium 124. Her potassium was 5.3 and a slightly hemolyzed sample. Of concern her vitals show tachycardia to 115/120. She was given a 500 cc bolus which did not improve her tachycardia. She denies any chest pain palpitation shortness of breath. She does endorse right calf pain on palpation. On review of her medications for recent discharge from the [facility] on 01/06/2021, she takes several medications which can be related to SIADH causing her hyponatremia, these include risperidone trazodone venlafaxine and mirtazapine. Patient will be admitted to hospitalist service for management of hyponatremia and psychiatric evaluation. 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 PAST SURGICAL HISTORY: 1. Left breast biopsy. 2. Left breast lumpectomy SOCIAL HISTORY: denies smoking, etoh use, illicit drug use FAMILY HISTORY: reviewed with patient, she is unable to provide at this time ALLERGIES: Please see below. REVIEW OF SYSTEMS: 10 point ROS conducted, relevant pertinent findings are noted in HPI. HOME MEDICATIONS: Please see below. PHYSICAL EXAMINATION: VITAL SIGNS: please see below General: patient appears very anxious HEENT: PERRLA, EOMI, sclerae clear Neck: supple, normal ROM, no JVD Respiratory: lungs CTAB, no wheeze, no rales, no crackles CVS:regular, tachycardic, normal S1, S2, no murmurs Abdo: soft, no masses, no hepatosplenomegaly, BS+, no rebound tenderness Extremities: no edema, pulses 2+, R calf tender to palpation MSK: no joint deformities, normal ROM Neuro: no focal neuro deficits, moving all 4 extremities, CN2-12 intact. Strengt h 5/5 in all 4 extremities. No nystagmus. Psych: calm, cooperative, AAO x 3 LABORATORY DATA: See below. IMAGING: CXR (02/16/21): No acute disease. MICROBIOLOGY: Please see below. ASSESSMENT: Ms. Felix is a pleasant 65-year-old female with a past medical history of hypertension,, asthma hypothyroidism, ductal carcinoma in situ, obesity, neurocognitive impairment, schizophrenia as well as anxiety. Admitted for treatment of hyponatremia, likely 2/2 medication-induced SIADH. She is also found to be in sinus tachycardia, initially thought to be 2/2 anxiety, however, despite fluid bolus and 2 mg PO lorazepam. VTE workup is ongoing. . PLAN: Hyponatremia - Na 124 - likely 2/2 SIADH, medication induced, possibly worsened by excess water intake - risperidone trazodone venlafaxine and mirtazapine - these medications will be held at this time - fluid restrict to 1500 cc/day - start NaCl 1 g BID - check urine lytes - day team to please consult psychiatry eval for med adjustment Hyperkalemia - K 5.3, hemolyzed sample - repeat BMP Sinus tachycardia - reports no chest pain, no palpitations, no hemoptysis - s/p 500 cc NS bolus without improvement - c/o R calf pain and swelling - check RLE duplex to r/o DVT - check d dimer, if elevated will obtain CTA to r/o PE Severe anxiety/bipolar/schizoaffective disorder/poss Alzheimer's - follows with Dr. Yi. - anxiety precipitate by mental distress/grieving over her parents passing in May of this year, has difficult time as we approach Yves holidays - s/p 2mg PO lorazepam in ER - will order lorazepam 1mg IV q4h prn for severe anxiety - day service to please consult psychiatry, patient may require admission to [facility] after medically clear Dementia - Parkinsons? - takes benztropine - takes donepezil Hypertension - c/w home regimen, metoprolol 25 mg BID, lisinopril 20 mg daily Hypothyroidism - continue with levothyroxine -TSH 1.070 Hx breast ca - f/u oncology Dispo: admit for observation. Expect admission to [facility] after medically stable. PFS is consulted to reassess patient's ability to care for self at home. Vital Signs Vital Signs Date Time Temp Pulse Resp B/P (MAP) Pulse Ox O2 Delivery O2 Flow Rate FiO2 02/16/21 22:32 99.4 02/16/21 22:22 113 95 02/16/21 22:15 131/78 (95) 02/16/21 17:55 16 Room Air Laboratory Data Labs 24H Laboratory Tests 2 02/16/21 20:02: Nucleated Red Blood Cells % (auto) 0.0, Anion Gap 9, Glomerular Filtration Rate > 60.0, Calcium Level 9.7, Total Bilirubin 0.3, Direct Bilirubin < 0.1, Aspartate Amino Transf (AST/SGOT) 53H, Alanine Aminotransferase (ALT/SGPT) 35, Alkaline Phosphatase 70, Total Protein 7.1, Albumin 4.2, Albumin/Globulin Ratio 1.4, Thyroid Stimulating Hormone (TSH) 1.070, Salicylates Level < 1.7L, Acet aminophen Level < 2.0L, Ethyl Alcohol Level < 0.003 02/16/21 20:06: POC Troponin I (Misc) 0.02 02/16/21 23:11: Coronavirus (COVID-19)(PCR) NEGATIVE, Influenza Type A (RT-PCR) NEGATIVE, Influenza Type B (RT-PCR) NEGATIVE, Respiratory Syncytial Virus (PCR) NEGATIVE CBC/BMP Laboratory Tests 02/16/21 20:02 Home Medications Scheduled Benztropine Mesylate (Benztropine Mesylate) 0.5 Mg Tablet, 0.5 MG PO BID Calcium Carbonate (Calcium) 500 Mg Tablet, 500 MG PO DAILY Cholecalciferol (Vitamin D3) (Vitamin D3) 50 Mcg Capsule, 50 MCG PO DAILY Diclofenac Sodium (Diclofenac Sodium) 50 Mg Tablet.dr, 50 MG PO BID Donepezil HCl (Donepezil HCl) 10 Mg Tablet, 10 MG PO QHS Levothyroxine Sodium (Synthroid) 50 Mcg Tablet, 50 MCG PO DAILY Lisinopril (Lisinopril) 20 Mg Tablet, 20 MG PO DAILY Lorazepam (Lorazepam) 1 Mg Tablet, 1 MG PO BID Metoprolol Tartrate (Metoprolol Tartrate) 25 Mg Tablet, 25 MG PO BID Mirtazapine (Remeron) 15 Mg Tablet, 7.5 MG PO QHS Multivitamins (Thera M Plus Tablet) 1 Each Tablet, 1 TAB PO DAILY Paliperidone Palmitate (Invega Trinza) 819 Mg/2.625 Ml Syringe, 819 MG IM Q3M for psychosis Risperidone (Risperdal) 1 Mg Tablet, 1 MG PO DAILY Risperidone (Risperdal) 2 Mg Tablet, 2 MG PO QHS Trazodone HCl (Trazodone HCl) 50 Mg Tablet, 50 MG PO QHS Venlafaxine HCl (Venlafaxine HCl ER) 150 Mg Cap.er.24h, 150 MG PO DAILY Allergies Coded Allergies: No Known Allergies (Verified , 01/25/18) A-FIB/CHADSVASC A-FIB History Current/History of A-Fib/PAF?: No FLOR ALEX MD Feb 17, 2021 01:37
--- NOTE | 2021-02-17 02:00 | REPVR ---
PROCEDURE INFORMATION: Exam: US Duplex Right Lower Extremity Veins, Limited Exam date and time: 02/17/2021 1:49 AM Age: 65 years old Clinical indication: Pain; Leg, lower; Right; Additional info: R/O dvt TECHNIQUE: Imaging protocol: Real-time Duplex ultrasound of the Right Lower Extremity with 2-D smith scale, color Doppler flow and spectral waveform analysis with image documentation. Limited exam was focused on the right lower extremity veins. COMPARISON: RENAL US 06/02/2020 4:27 PM FINDINGS: Right deep veins: Common femoral, femoral, proximal profunda femoral and popliteal veins are patent without thrombus. Normal Doppler waveforms. Normal compressibility and/or augmentation response. Right superficial veins: Saphenofemoral junction is patent without thrombus. Soft tissues: No abnormal focal fluid collection. IMPRESSION: No evidence of right lower extremity deep vein thrombosis. Electronically signed by: Fletcher Bennett On 02/17/2021 02:00:11 AM
[2021-02-17 05:25] LABS: BASO % 0.2 % (0.0-1.0); EOS # 0.1 10^3/uL (0.0-0.5); EOS % 0.7 % (0.0-3.0); HEMATOCRIT 30.9 % (36.0-47.0); HEMOGLOBIN 10.9 g/dl (12.0-15.5); LYMPH # 1.6 10^3/uL (1.5-5.0); LYMPH % 18.7 % (24.0-44.0); MEAN CORPUSCULAR HEMOGLOBIN 30.9 pg (27.0-33.0); MEAN CORPUSCULAR HGB CONC 35.3 g/dl (32.0-36.5); MEAN CORPUSCULAR VOLUME 87.5 fl (80.0-96.0); MONO % 11.6 % (2.0-8.0); NEUTROPHILS # 5.7 10^3/uL (1.5-8.5); NEUTROPHILS % 68.6 % (36.0-66.0); PLATELET COUNT, AUTOMATED 323 10^3/uL (150-450); RED BLOOD COUNT 3.53 10^6/uL (4.00-5.40); WHITE BLOOD COUNT 8.3 10^3/uL (4.0-10.0)
[2021-02-17 05:50] LABS: ALBUMIN 3.6 GM/DL (3.2-5.2); ALT/SGPT 34 U/L (12-78); BILIRUBIN,TOTAL 0.3 MG/DL (0.2-1.0); BLOOD UREA NITROGEN 7 MG/DL (7-18); CALCIUM LEVEL 8.8 MG/DL (8.8-10.2); CARBON DIOXIDE LEVEL 27 MEQ/L (21-32); CHLORIDE LEVEL 98 MEQ/L (98-107); CREATININE FOR GFR 0.68 MG/DL (0.55-1.30); GLOMERULAR FILTRATION RATE > 60.0 (>45); GLUCOSE, FASTING 98 MG/DL (70-100); MAGNESIUM LEVEL 2.2 MG/DL (1.8-2.4); POTASSIUM SERUM 4.3 MEQ/L (3.5-5.1); SODIUM LEVEL 133 MEQ/L (136-145); TOTAL PROTEIN 6.3 GM/DL (6.4-8.2)
[2021-02-17] MEDS ORDERED: SODIUM CHLORIDE 1 GM TAB PO SCH (09:00)
--- NOTE | 2021-02-17 09:38 | IPNPDOC ---
Date Seen The patient was seen on 02/17/21. Progress Note SUBJECTIVE: No c/o h/a changes in vision. Says she is anxious w memory problems at baseline. No changes overnight. Objective: PHYSICAL EXAMINATION: VITAL SIGNS: please see below General: patient appears very anxious poor eye contact HEENT: pinpoint pupils but reactive EOMI, sclerae clear no use of acc resp mm Neck: supple, normal ROM, no JVD no stridor Respiratory: lungs CTAB, no wheeze, no rales, no crackles AEBE CVS:regular, tachycardic, normal S1, S2, no murmurs Abdo: soft, no masses, no hepatosplenomegaly, BS+, no rebound tenderness Extremities: no edema, pulses 2+, R calf tender to palpation LABORATORY DATA: See below. IMAGING: see chart CXR (02/16/21): No acute disease. MICROBIOLOGY: Please see below. ASSESSMENT: Ms. Felix is a pleasant 65-year-old female with a past medical history of hypertension,, asthma hypothyroidism, ductal carcinoma in situ, obesity, neurocognitive impairment, schizophrenia as well as anxiety. Admitted for treatment of hyponatremia, likely 2/2 medication-induced SIADH Hyponatremia -monitor for sxs . avoid over-correction. Continue fluid restriction. Salt tabs for now. Mp q4hrs. Hyperkalemia --hemolyzed on admission. K 5.3 Sinus tachycardia -check ct chest r/o pe. Venous dopplers negative Severe anxiety/bipolar/schizoaffective disorder/poss Alzheimer's -psych consulted to adjust meds Dementia - Parkinsons? -resumed home meds Hypertension - c/w home regimen, metoprolol 25 mg BID, lisinopril 20 mg daily Hypothyroidism - continue with levothyroxine -TSH 1.070 Hx breast ca - f/u oncology VS, I&O, 24H, Fishbone Vital Signs/I&O Vital Signs Date Time Temp Pulse Resp B/P (MAP) Pulse Ox O2 Delivery O2 Flow Rate FiO2 02/17/21 06:22 121 02/16/21 22:52 95 02/16/21 22:32 99.4 02/16/21 22:15 131/78 (95) 02/16/21 17:55 16 Room Air Laboratory Data 24H LABS Laboratory Tests 2 02/16/21 20:02: Nucleated Red Blood Cells % (auto) 0.0, Anion Gap 9, Glomerular Filtration Rate > 60.0, Calcium Level 9.7, Total Bilirubin 0.3, Direct Bilirubin < 0.1, Aspartate Amino Transf (AST/SGOT) 53H, Alanine Aminotransferase (ALT/SGPT) 35, Alkaline Phosphatase 70, Total Protein 7.1, Albumin 4.2, Albumin/Globulin Ratio 1.4, Thyroid Stimulating Hormone (TSH) 1.070, Salicylates Level < 1.7L, Acetaminophen Level < 2.0L, Ethyl Alcohol Level < 0.003 02/16/21 20:06: POC Troponin I (Misc) 0.02 02/16/21 23:11: Coronavirus (COVID-19)(PCR) NEGATIVE, Influenza Type A (RT-PCR) NEGATIVE, Influenza Type B (RT-PCR) NEGATIVE, Respiratory Syncytial Virus (PCR) NEGATIVE 02/17/21 01:28: D-Dimer, Quantitative 424.19 02/17/21 04:51: Immature Granulocyte % (Auto) 0.2, Neutrophils (%) (Auto) 68.6H, Lymphocytes (%) (Auto) 18.7L, Monocytes (%) (Auto) 11.6H, Eosinophils (%) (Auto) 0.7, Basophils (%) (Auto) 0.2, Neutrophils # (Auto) 5.7, Lymphocytes # (Auto) 1.6, Monocytes # (Auto) 1.0H, Eosinophils # (Auto) 0.1, Basophils # (Auto) 0.0, Nucleated Red Blood Cells % (auto) 0.0, Anion Gap 8, Glomerular Filtration Rate > 60.0, Calcium Level 8.8, Magnesium Level 2.2, Total Bilirubin 0.3, Aspartate Amino Transf (AST/SGOT) 41H, Alanine Aminotransferase (ALT/SGPT) 34, Alkaline Phosphatase 65, Total Protein 6.3L, Albumin 3.6, Albumin/Globulin Ratio 1.3 CBC/BMP Laboratory Tests 02/16/21 20:02 02/17/21 04:51 SHILPI CHOI MD Feb 17, 2021 09:38
[2021-02-17] MEDS ORDERED: ISOVUE-370 76% 100ML VIAL As Ordered ONE (09:47)
[2021-02-17] MEDS: LEVOTHYROXINE 50MCG TABLET (0.05MG) PO SCH (10:05)
[2021-02-17] MEDS: BENZTROPINE 0.5 MG TAB PO SCH ×2 (10:05→20:04)
[2021-02-17] MEDS: OYSTER SHELL CALCIUM 500 MG TAB PO SCH (10:07)
[2021-02-17] MEDS: METOPROLOL TART 25 MG TABLET PO SCH ×2 (10:08→20:05)
--- NOTE | 2021-02-17 10:17 | REP ---
INDICATION: tachycardia r/o pe COMPARISON: None. TECHNIQUE: CT angiography of the chest after the intravenous administration of 75 cc Isovue 370. FINDINGS: There is good visualization of the pulmonary arterial vasculature. There are no focal filling defects present that would be considered consistent with acute pulmonary emboli. Limited evaluation of the thoracic aorta shows no gross abnormality. There are no pleural or pericardial effusions. There is no mediastinal or hilar adenopathy. The imaged upper abdomen shows cholelithiasis. The imaged osseous structures show advanced degenerative changes involving the right shoulder. Evaluation of the lung haile shows significant respiratory motion artifact obscuring the lung bases. This is also seen involving the lung apical regions. There is no evidence of a significant pulmonary nodule or abnormal focal opacity. There is an incidental calcified granuloma in the left lower lobe. There is an incidental calcified granuloma in the right lower lobe. IMPRESSION: 1. There is no evidence of a pulmonary embolism. 2. There is cholelithiasis. 3. Other findings and exam limitations as described above. <Electronically signed by Hussein Patterson > 02/17/21 [id number]
[2021-02-17 11:00] LABS: BLOOD UREA NITROGEN 7 MG/DL (7-18); CALCIUM LEVEL 8.8 MG/DL (8.8-10.2); CARBON DIOXIDE LEVEL 28 MEQ/L (21-32); CHLORIDE LEVEL 96 MEQ/L (98-107); CREATININE FOR GFR 0.67 MG/DL (0.55-1.30); GLOMERULAR FILTRATION RATE > 60.0 (>45); GLUCOSE, FASTING 114 MG/DL (70-100); POTASSIUM SERUM 4.3 MEQ/L (3.5-5.1); SODIUM LEVEL 131 MEQ/L (136-145)
[2021-02-17 15:11] LABS: BLOOD UREA NITROGEN 7 MG/DL (7-18); CALCIUM LEVEL 9.5 MG/DL (8.8-10.2); CARBON DIOXIDE LEVEL 28 MEQ/L (21-32); CHLORIDE LEVEL 96 MEQ/L (98-107); CREATININE FOR GFR 0.71 MG/DL (0.55-1.30); GLOMERULAR FILTRATION RATE > 60.0 (>45); GLUCOSE, FASTING 134 MG/DL (70-100); POTASSIUM SERUM 4.4 MEQ/L (3.5-5.1); SODIUM LEVEL 131 MEQ/L (136-145)
[2021-02-17 15:30] VITALS: BP 146/73
[2021-02-17] MEDS: SODIUM CHLORIDE 1 GM TAB PO SCH ×2 (16:53→20:05)
[2021-02-17] MEDS ORDERED: ALPRAZolam 0.25 MG TAB PO ONE (17:15)
[2021-02-17 18:29] LABS: BLOOD UREA NITROGEN 8 MG/DL (7-18); CALCIUM LEVEL 9.5 MG/DL (8.8-10.2); CARBON DIOXIDE LEVEL 29 MEQ/L (21-32); CHLORIDE LEVEL 96 MEQ/L (98-107); CREATININE FOR GFR 0.61 MG/DL (0.55-1.30); GLOMERULAR FILTRATION RATE > 60.0 (>45); GLUCOSE, FASTING 96 MG/DL (70-100); POTASSIUM SERUM 4.2 MEQ/L (3.5-5.1); SODIUM LEVEL 132 MEQ/L (136-145)
[2021-02-17] MEDS: DONEPEZIL 5 MG TAB PO SCH (20:05)
[2021-02-17 22:00] VITALS: BP 120/72
[2021-02-18] MEDS: LEVOTHYROXINE 50MCG TABLET (0.05MG) PO SCH (05:51)
[2021-02-18 06:35] VITALS: BP 140/66
--- NOTE | 2021-02-18 07:58 | MHCRPDOC ---
[facility] Consultation Consultation DATE OF CONSULTATION: 02/18/21 CONSULTATION REQUESTED BY: Hospitalist team REASON FOR CONSULTATION: Per Dr Nguyễn's H and P 02/16 "Ms. Felix is a pleasant 65-year-old female with a past medical history of hypertension,, asthma hypothyroidism, ductal carcinoma in situ, obesity, neurocognitive impairment, schizophrenia as well as anxiety. She has had several admissions to [facility] in the past. She presents to the ER complaining of severe anxiety refractory to her medications at home. She states that she has a hard time during the holidays due to her parents passing in May of this year. She was found to have hyponatremia on BMP of sodium 124. Her potassium was 5.3 and a slightly hemolyzed sample. Of concern her vitals show tachycardia to 115/120. She was given a 500 cc bolus which did not improve her tachycardia. She denies any chest pain palpitation shortness of breath. She does endorse right calf pain on palpation. On review of her medications for recent discharge from [facility] on 01/06/2021, she takes several medications which can be related to SIADH causing her hyponatremia, these include risperidone trazodone venlafaxine and mirtazapine. Patient will be admitted to hospitalist service for management of hyponatremia and psychiatric evaluation." RELEVANT HISTORY: Patient being treated on the medical floor for hyponatremia related to see, patient denies excessive p.o. water intake, patient multiple medications including mirtazapine, Effexor, risperidone, trazodone which may all contribute to hyponatremia, patient lying in bed comfortably, denying suicidal ideations, homicidal ideations, auditory or visual hallucinations, but states it of time of year due to recent losses of parents. Patient made aware that medications may be contribute to hyponatremia. Patient is alert and oriented x3, no acute physical complaints. Agreeable to restarting medications with lower doses. PAST PSYCHIATRIC HISTORY: Previous Psychiatric Diagnosis: Bipolar disorder, depression, schizoaffective disorder, Alzheimer's Previous Psychiatric Admissions: Multiple, last admission July 19, 2020 Suicide Attempts: 1 time per chart review Psychiatric Follow-up: [facility], Dr. Yi Psychiatric medications: Multiple, see HPI PAST MEDICAL HISTORY: Medical Problems Hyponatremia, likely SIADH, Hypothyroidism, Myopic astigmatism, Asthma, mild intermittent, Ductal carcinoma in situ, no chemo or radiation, Morbid obesity, Neurocognitive impairment (Alzheimer's) Head Injury: No Seizures: No Hospitalizations: No Surgeries: No FAMILY HISTORY: noncontributory PERSONAL AND SOCIAL HISTORY: Childhood: Reports okay Abuse/Trauma: Not indicated Current Living Situation: [employer] independent apartments, lives with a cat, per chart review afraid of [facility] because she does not know what she will do with her cat Education: Unknown Employment: Unemployed Social Support: Family support Legal: Denies. Marital: Not SUBSTANCE ABUSE HISTORY: denies LEGAL HISTORY: denies MENTAL STATUS EXAMINATION: General Appearance: well groomed, lying in hospital bed, appears stated age Build: overweight Demeanor: calm Eye Contact:fair Activity: slowed Behavior: cooperative, loss of interests, anhedonia Speech: clear, spontaneous, slow Mood: depressed, anxious Mood "good" Affect: euthymic, full, somnolent Thought Process: logical/linear, concrete, slow Thought Content (Delusions): none reported Thought Content (Other): Denies suicidal ideations, intent or plan. Denies homicidal ideations, intent or plan Thought Content (Aggressive): none reported Perception (Hallucinations): none reported Perception (Other): none reported Cognition (Impairment of): memory, attention/concentration Cognition(Intelligence Est.): borderline Oriented: Awake, Alert, Oriented times three Insight: other (Limited) Judgment: Other (Limited) Psychosis: Denies DIAGNOSIS: Schizoaffective, bipolar type per history and chart review Major neurocognitive disorder (timers, supplemented with donepezil) PLAN: 1. Stabilize patient with regards to blood sodium level stabilizes, trended up to 132, start Effexor 75 mg time release (home dose 150 mg extended release), restart risperidone 0.5 mg twice daily for psychosis, hold mirtazapine, due for next long-acting Invega Trinza 819 mg 03/16/20 2. Already with outpatient provider for follow-up appointments for further titration of medications after stabilization 3. Feel free to reconsult psychiatry if any further concerns or questions. Vital Signs Vital Signs Date Time Temp Pulse Resp B/P (MAP) Pulse Ox O2 Delivery O2 Flow Rate FiO2 02/18/21 06:35 98.4 76 17 140/66 (90) 99 Room Air Laboratory Data 24H Labs Laboratory Tests 2 02/17/21 10:11: Anion Gap 7L, Glomerular Filtration Rate > 60.0, Calcium Level 8.8 02/17/21 14:29: Anion Gap 7L, Glomerular Filtration Rate > 60.0, Calcium Level 9.5 02/17/21 17:43: Anion Gap 7L, Glomerular Filtration Rate > 60.0, Calcium Level 9.5 Home Medications Current Medications Current Medications Medications (Trade) Dose Ordered Sig/Dev Route PRN Reason Start Time Stop Time Status Last Admin Dose Admin Acetaminophen (Tylenol Tab) 650 mg Q4H PRN PO MILD PAIN or TEMP > 101 02/16/21 23:55 02/17/21 20:07 Al Hydrox/Mg Hydrox/Simethicone (Mylanta) 30 ml DAILY PRN PO DYSPEPSIA 02/16/21 23:55 Benztropine Mesylate (Cogentin) 0.5 mg BID PO 02/17/21 09:00 02/17/21 20:04 Calcium Carbonate (Oscal) 500 mg DAILY PO 02/17/21 09:00 02/17/21 10:07 Donepezil HCl (AriCEPT) 10 mg QHS PO 02/17/21 21:00 02/17/21 20:05 Home Med (Home Med List Complete!) ASDIRECTED XX 02/16/21 21:55 02/16/21 21:54 DC Levothyroxine Sodium (Synthroid) 50 mcg DAILY@0600 PO 02/17/21 06:00 02/18/21 05:51 Lisinopril (Prinivil) 20 mg DAILY PO 02/17/21 09:00 02/17/21 10:07 Lorazepam (Ativan) 1 mg STAT STAT PO 02/16/21 19:00 02/16/21 19:01 DC 02/16/21 20:12 Lorazepam (Ativan) 1 mg STAT STAT PO 02/16/21 22:34 02/16/21 22:35 DC 02/16/21 22:41 Magnesium Hydroxide (Milk Of Magnesia) 30 ml DAILY PRN PO CONSTIPATION 02/16/21 23:55 Metoprolol Tartrate (Lopressor) 25 mg BID PO 02/17/21 09:00 02/17/21 20:05 Sodium Chloride (Sodium Chloride) 1 gm BID PO 02/17/21 09:00 02/17/21 13:01 DC 02/17/21 10:05 Sodium Chloride (Sodium Chloride) 2 gm TID PO 02/17/21 16:00 02/17/21 20:05 Scheduled Benztropine Mesylate (Benztropine Mesylate) 0.5 Mg Tablet, 0.5 MG PO BID, (Reported) Calcium Carbonate (Calcium) 500 Mg Tablet, 500 MG PO DAILY, (Reported) Cholecalciferol (Vitamin D3) (Vitamin D3) 50 Mcg Capsule, 50 MCG PO DAILY, (Reported) Diclofenac Sodium (Diclofenac Sodium) 50 Mg Tablet.dr, 50 MG PO BID, (Reported) Donepezil HCl (Donepezil HCl) 10 Mg Tablet, 10 MG PO QHS, (Reported) Levothyroxine Sodium (Synthroid) 50 Mcg Tablet, 50 MCG PO DAILY, (Reported) Lisinopril (Lisinopril) 20 Mg Tablet, 20 MG PO DAILY, (Reported) Lorazepam (Lorazepam) 1 Mg Tablet, 1 MG PO BID, (Reported) Metoprolol Tartrate (Metoprolol Tartrate) 25 Mg Tablet, 25 MG PO BID, (Reported) Mirtazapine (Remeron) 15 Mg Tablet, 7.5 MG PO QHS, (Reported) Multivitamins (Thera M Plus Tablet) 1 Each Tablet, 1 TAB PO DAILY, (Reported) Paliperidone Palmitate (Invega Trinza) 819 Mg/2.625 Ml Syringe, 819 MG IM Q3M for psychosis Risperidone (Risperdal) 1 Mg Tablet, 1 MG PO DAILY, (Reported) Risperidone (Risperdal) 2 Mg Tablet, 2 MG PO QHS, (Reported) Trazodone HCl (Trazodone HCl) 50 Mg Tablet, 50 MG PO QHS, (Reported) Venlafaxine HCl (Venlafaxine HCl ER) 150 Mg Cap.er.24h, 150 MG PO DAILY, (Reported) Allergies Coded Allergies: No Known Allergies (Verified , 01/25/18) DEJA MONTEZ MD Feb 18, 2021 07:58
[2021-02-18] MEDS ORDERED: RISP0.5T21 PO (08:16)
[2021-02-18] MEDS ORDERED: VENL75CA2 PO (08:16)
[2021-02-18] MEDS: BENZTROPINE 0.5 MG TAB PO SCH ×2 (08:21→20:02)
[2021-02-18] MEDS: SODIUM CHLORIDE 1 GM TAB PO SCH ×3 (08:22→20:02)
[2021-02-18] MEDS: METOPROLOL TART 25 MG TABLET PO SCH ×2 (08:22→19:53)
[2021-02-18] MEDS: OYSTER SHELL CALCIUM 500 MG TAB PO SCH (08:23)
[2021-02-18] MEDS: VENLAFAXINE **XR** 75MG CAPSULE PO SCH ×2 (09:51→20:02)
[2021-02-18] MEDS: risperiDONE 0.5 MG TAB PO SCH ×2 (09:52→20:02)
[2021-02-18] MEDS ORDERED: SODI1TAB6 PO (10:07)
--- NOTE | 2021-02-18 10:12 | DS.PDOC ---
Discharge Summary General Date of Admission Feb 16, 2021 at 23:51 Date of Discharge 02/18/21 Discharge Summary Discharge diagnoses: Hyponatremia SIADH Bipolar disorder Schizoaffective disorder Benign essential tremors Dementia Anxiety Hypertension Hypothyroidism Obesity BMI 38.1 Discharge medications: See below Discharge instructions: Continue 2 g 3 times daily sodium with meals. PCP 5-day follow-up. Psychiatrist 5-day follow-up Dr. Yi on . 2 L fluid restriction Hospital course: Ms. Felix is a pleasant 65-year-old female with a past medical history of hypertension,, asthma hypothyroidism, ductal carcinoma in situ, obesity, neurocognitive impairment, schizophrenia as well as anxiety. Admitted for treatment of hyponatremia, likely 2/2 medication-induced SIADH Hyponatremia Most likely secondary to psychiatric medications causing SIADH. Patient was initially given normal saline 500 mL bolus due to hypotension but kept on fluid restriction afterwards and strict I's and O's with metabolic panel every 4 hourly and salt tablets given 3 times daily with meals 2 g with improvement to 131 and improvement of mental status no seizure activity during this admission psychiatric medications were adjusted by psychiatrist Hemolyzed hyperkalemia on admission. K 5.3 Sinus tachycardia -Negative PE on CT chest venous dopplers negative for DVT Severe anxiety/bipolar/schizoaffective disorder/poss Alzheimer's -psych adjusted medications to prevent further hyponatremia -Immediate follow-up with Dr. Yi on Dementia - Parkinsons?/Benign essential tremors -resumed home meds Hypertension - c/w home regimen, metoprolol 25 mg BID, lisinopril 20 mg daily Hypothyroidism - continue with levothyroxine -TSH 1.070 Hx breast ca - f/u oncology DISCHARGE PHYSICAL EXAMINATION: VITAL SIGNS: please see below General: patient appears very anxious poor eye contact HEENT: pinpoint pupils but reactive EOMI, sclerae clear no use of acc resp mm Neck: supple, normal ROM, no JVD no stridor Respiratory: lungs CTAB, no wheeze, no rales, no crackles AEBE CVS:regular, tachycardic, normal S1, S2, no murmurs Abdo: soft, no masses, no hepatosplenomegaly, BS+, no rebound tenderness Extremities: no edema, pulses 2+, R calf tender to palpation LABORATORY DATA: See below. IMAGING: see chart CXR (02/16/21): No acute disease. MICROBIOLOGY: Please see below. Time spent on discharge: 30 minutes Vital Signs/I&Os Vital Signs Date Time Temp Pulse Resp B/P (MAP) Pulse Ox O2 Delivery O2 Flow Rate FiO2 02/18/21 08:22 78 137/83 02/18/21 06:35 98.4 17 99 Room Air I&O- Last 24 Hours up to 6 AM 02/18/21 05:59 Intake Total 340 ml Output Total 150 ml Balance 190 ml Laboratory Data Labs 24H Laboratory Tests 2 02/17/21 10:11: Anion Gap 7L, Glomerular Filtration Rate > 60.0, Calcium Level 8.8 02/17/21 14:29: Anion Gap 7L, Glomerular Filtration Rate > 60.0, Calcium Level 9.5 02/17/21 17:43: Anion Gap 7L, Glomerular Filtration Rate > 60.0, Calcium Level 9.5 CBC/BMP Laboratory Tests 02/17/21 10:11 02/17/21 14:29 02/17/21 17:43 Discharge Medications Scheduled Benztropine Mesylate (Benztropine Mesylate) 0.5 Mg Tablet, 0.5 MG PO BID, (Reported) Calcium Carbonate (Calcium) 500 Mg Tablet, 500 MG PO DAILY, (Reported) Cholecalciferol (Vitamin D3) (Vitamin D3) 50 Mcg Capsule, 50 MCG PO DAILY, (Reported) Diclofenac Sodium (Diclofenac Sodium) 50 Mg Tablet.dr, 50 MG PO BID, (Reported) Donepezil HCl (Donepezil HCl) 10 Mg Tablet, 10 MG PO QHS, (Reported) Levothyroxine Sodium (Synthroid) 50 Mcg Tablet, 50 MCG PO DAILY, (Reported) Lisinopril (Lisinopril) 20 Mg Tablet, 20 MG PO DAILY, (Reported) Lorazepam (Lorazepam) 1 Mg Tablet, 1 MG PO BID, (Reported) Metoprolol Tartrate (Metoprolol Tartrate) 25 Mg Tablet, 25 MG PO BID, (Reported) Mirtazapine (Remeron) 15 Mg Tablet, 7.5 MG PO QHS, (Reported) Multivitamins (Thera M Plus Tablet) 1 Each Tablet, 1 TAB PO DAILY, (Reported) Paliperidone Palmitate (Invega Trinza) 819 Mg/2.625 Ml Syringe, 819 MG IM Q3M for psychosis Risperidone (Risperdal) 0.5 Mg Tablet, 0.5 MG PO BID Sodium Chloride (Sodium Chloride) 1 Gm Tablet, 2 GM PO TID Trazodone HCl (Trazodone HCl) 50 Mg Tablet, 50 MG PO QHS, (Reported) Venlafaxine HCl (Venlafaxine HCl ER) 75 Mg Cap.er.24h, 75 MG PO BID Allergies Coded Allergies: No Known Allergies (Verified , 01/25/18) SHILPI CHOI MD Feb 18, 2021 10:12
[2021-02-18 14:00] VITALS: BP 101/62
[2021-02-18] MEDS: DONEPEZIL 5 MG TAB PO SCH (20:02)
[2021-02-18 21:00] VITALS: BP 90/50
[2021-02-19 05:32] VITALS: BP 136/83
[2021-02-19] MEDS: LEVOTHYROXINE 50MCG TABLET (0.05MG) PO SCH (05:41)
[2021-02-19 09:00] VITALS: BP 102/58
[2021-02-19] MEDS: METOPROLOL TART 25 MG TABLET PO SCH (09:00)
[2021-02-19] MEDS: risperiDONE 0.5 MG TAB PO SCH (09:06)
[2021-02-19] MEDS: BENZTROPINE 0.5 MG TAB PO SCH (09:06)
[2021-02-19] MEDS: SODIUM CHLORIDE 1 GM TAB PO SCH (09:06)
[2021-02-19] MEDS: VENLAFAXINE **XR** 75MG CAPSULE PO SCH (09:07)
[2021-02-19] MEDS: OYSTER SHELL CALCIUM 500 MG TAB PO SCH (09:07)
--- NOTE | 2021-02-19 12:24 | IPNPDOC ---
Date Seen The patient was seen on 02/19/21. Progress Note Addendum to discharge summary: pt was kept overnight because family could not pick her up yesterday and medications had to be pre-packaged. No other issues overnight. Discharge PE: vitals: see below GEN: anxious . no respiratory distress HEENT: moist mm Lungs: CTAB Heart: S1S2 RRR abd: +bs soft nt nd ext: no c/c/e. discharge labs/imaging/microbiology: pls see chart. discharge instructions: immediate fu with psychiatrist on 02/20/[address] Dr[address] Yi to manage all psychiatric medications including changes in dosage, pre-authorizations. VS, I&O, 24H, Fishbone Vital Signs/I&O Vital Signs Date Time Temp Pulse Resp B/P (MAP) Pulse Ox O2 Delivery O2 Flow Rate FiO2 02/19/21 09:00 88 102/58 02/19/21 05:32 97.9 18 99 Room Air I&O- Last 24 Hours up to 6 AM 02/19/21 06:00 Intake Total 1530 ml Output Total 800 ml Balance 730 ml SHILPI CHOI MD Feb 19, 2021 12:24
== END 2021-02-19 13:27 | disposition home health service (06) | DRG 645 ==
LOC: M ED 17:37 → M ED INP 23:51 → M MSPAV 02-17 15:24
PROVIDERS: ADMIT Family Medicine; ATTEND General Practice
DX: E22.2 Syndrome of inappropriate secretion of antidiuretic hormone (principal); I10 Essential (primary) hypertension; J45.909 Unspecified asthma, uncomplicated; E03.9 Hypothyroidism, unspecified; E66.01 Morbid (severe) obesity due to excess calories; F25.9 Schizoaffective disorder, unspecified; F41.9 Anxiety disorder, unspecified; H52.209 Unspecified astigmatism, unspecified eye; E87.5 Hyperkalemia; F31.9 Bipolar disorder, unspecified; Z86.000 Personal history of in-situ neoplasm of breast; Z20.822 Contact with and (suspected) exposure to COVID-19; Z79.899 Other long term (current) drug therapy; F03.90 Unspecified dementia, unspecified severity, without behavioral disturbance, psychotic disturbance, mood disturbance, and anxiety; E87.6 Hypokalemia; G25.0 Essential tremor; Z68.38 Body mass index [BMI] 38.0-38.9, adult

== ENCOUNTER 2021-02-24 15:02 | Inpatient (IN) | payer MEDICARE, OTHER, MEDICAID ==
[~2021-02-24] VITALS: Ht 147.3 cm; Wt 75.5 kg
[~2021-02-24 15:02] MED LIST changes: +LORA1TAB4 PO; +RISP0.5T21 PO; +SODI1TAB6 PO
[2021-02-24 16:46] LABS: HEMATOCRIT 37.6 % (36.0-47.0); HEMOGLOBIN 12.8 g/dl (12.0-15.5); MEAN CORPUSCULAR HEMOGLOBIN 30.8 pg (27.0-33.0); MEAN CORPUSCULAR VOLUME 90.4 fl (80.0-96.0); PLATELET COUNT, AUTOMATED 325 10^3/uL (150-450); RED BLOOD COUNT 4.16 10^6/uL (4.00-5.40); WHITE BLOOD COUNT 7.6 10^3/uL (4.0-10.0)
[2021-02-24 17:13] LABS: ACETAMINOPHEN LEVEL < 2.0 UG/ML (10.0-30.0); ALBUMIN 3.9 GM/DL (3.2-5.2); ALT/SGPT 30 U/L (12-78); BILIRUBIN,DIRECT 0.1 MG/DL (0.0-0.2); BILIRUBIN,TOTAL 0.2 MG/DL (0.2-1.0); BLOOD UREA NITROGEN 9 MG/DL (7-18); CALCIUM LEVEL 9.5 MG/DL (8.8-10.2); CARBON DIOXIDE LEVEL 28 MEQ/L (21-32); CHLORIDE LEVEL 100 MEQ/L (98-107); ETHYL ALCOHOL (ETHANOL) < 0.003 % (0.000-0.010); GLOMERULAR FILTRATION RATE > 60.0 (>45); GLUCOSE, FASTING 114 MG/DL (70-100); POTASSIUM SERUM 4.1 MEQ/L (3.5-5.1); SALICYLATE LEVEL < 1.7 MG/DL (5.0-30.0); SODIUM LEVEL 135 MEQ/L (136-145); THYROID STIMULATING HORMONE 0.765 uIU/ML (0.358-3.740); TOTAL PROTEIN 6.8 GM/DL (6.4-8.2)
[2021-02-24 17:17] LABS: RSV AMPLIFICATION NEGATIVE (NEGATIVE)
[2021-02-24 20:28] LABS: AMPHETAMINES LEVEL URINE NEGATIVE (NEGATIVE); BARBITURATES URINE NEGATIVE (NEGATIVE); BENZODIAZEPINES URINE NEGATIVE (NEGATIVE); CANNABINOIDS URINE NEGATIVE (NEGATIVE); COCAINE METABOLITE URINE NEGATIVE (NEGATIVE); METHADONE URINE NEGATIVE (NEGATIVE); OPIATES URINE NEGATIVE (NEGATIVE); PHENCYCLIDINE URINE NEGATIVE (NEGATIVE)
[2021-02-24] MEDS ORDERED: RISP-7 PO (20:44)
[2021-02-24] MEDS ORDERED: SODI1TAB6 PO (20:44)
[2021-02-24] MEDS ORDERED: VENL75CA47 PO (20:44)
[2021-02-24] MEDS ORDERED: HOME MED LIST COMPLETE! XX SCH (20:45)
[2021-02-24] MEDS ORDERED: MAALOX 30 ML SUSP *UDC PO PRN (22:05)
[2021-02-24] MEDS ORDERED: MOM 30ML SUSPENSION UDC PO PRN (22:05)
[2021-02-24] MEDS ORDERED: ACETAMINOPHEN TAB 650MG DOSE (2X325MG) PO PRN (22:05)
[2021-02-24] MEDS ORDERED: NICOTINE 21MG/24HR 1 EA TRANSDERMAL TD PRN (22:05)
[2021-02-24] MEDS ORDERED: VENL150C43 PO (22:40)
[2021-02-25] MEDS: BENZTROPINE 0.5 MG TAB PO SCH ×3 (00:09→20:17)
[2021-02-25] MEDS: traZODone 50 MG TAB PO PRN ×2 (00:09→20:17)
[2021-02-25] MEDS: LORazepam 1 MG TAB PO SCH ×4 (00:09→20:17)
[2021-02-25] MEDS: MIRTAZAPINE 7.5MG PER 1/2 TABLET PO SCH ×2 (00:09→20:17)
[2021-02-25] MEDS: risperiDONE 0.5 MG TAB PO SCH ×3 (00:09→20:17)
[2021-02-25] MEDS: METOPROLOL TART 25 MG TABLET PO SCH ×3 (00:10→20:17)
[2021-02-25] MEDS: SODIUM CHLORIDE 1 GM TAB PO SCH ×4 (00:10→20:18)
[2021-02-25 01:32] VITALS: BP 147/72
[2021-02-25] MEDS: LEVOTHYROXINE 50MCG TABLET (0.05MG) PO SCH (06:13)
[2021-02-25] MEDS: OYSTER SHELL CALCIUM 500 MG TAB PO SCH (08:20)
[2021-02-25] MEDS: VENLAFAXINE **XR** 75MG CAPSULE PO SCH (08:20)
[2021-02-25] MEDS: MULTIVITAMINS/MINERALS THERAP 1 TAB PO SCH (08:20)
--- NOTE | 2021-02-25 12:37 | MHHPEPDOC ---
General Date Of Admission: Feb 24, 2021 Legal Status: 9.39 Chief Complaint "I think it was my anxiety." History of Present Illness HISTORY OF THE PRESENT ILLNESS: Patient is a 65 -year-old Single, Retired, Domiciled female, who reports that she she was not taking care of herself at home since she was discharged from the hospital most recently from medical unit 02/16/21-02/19/21. She states that she was not "eating proper nutritional food. I am not a cook." She also complains that she was hearing voices of her family members telling her to "find something to do." She states that she had been weaned off some medications and she had been waking up with no will to live. She further alludes to fleeting suicidal thinking. [facility] walking with walker, being in the milieu and was well- kempt in hygiene and grooming this morning. PER ED REPORT Per pt. caregiver, Funmilayo ([phone]) therapist, Joelle, at [facility] told pt. and caregiver that to come to ER for evaluation. Pt. is delayed in answering questions this magazine writer asks. She lies still on stretcher during interview, does not add anything to conversation. She did answers when asked if this magazine writer could ask caregiver questions about why she is here in ER. Pt. does answer some questions on her own after pausing before answering. Pt. denies SI/HI. Caregiver, Funmilayo ([phone]) reports that pt. has not been able to function at home and has been decompensating since her d/c from medical admission on 02/19. Pt. went to out-pt. appt today and according to caregiver was told to come to ER for admission because pt. cannot care for self. Caregiver states that she cares for pt. 4 hours day M-F. She states that pt. has not been showering, has been calling caregiver multiple times over weekend (today being Wednesday) and that caregiver saw pt. over weekend which she does not normally do. Today, pt. told caregiver that her mother has been talking to her (mother ) and mother told her that she knows too much. Pt. did not elaborate more. Caregiver reports pt. has been needing constant redirection, cannot stay focused and appearing very confused at times. Pt. does carry diagnosis of Schizoaffective and dementia. She was recently admitted to hospital for hyponatr emia and had medications adjusted. Psychiatric Review of Systems Depression (2 or more weeks): depressed mood (Fleeting), anhedonia, feelings of worthlesness, difficulty concentrating, psychomotor changes, suicidal thoughts Vicky (4 or more days of): denies Psychosis: denies PTSD: denies Anxiety: stressor related anxiety Anxiety/ 6 months or more of: difficulty concentrating, sleep disturbance Past Psychiatric History Previous Psychiatric Diagnosis: Bipolar disorder, depression, schizoaffective disorder, Alzheimer's Previous Psychiatric Admissions: Multiple last hospitalization Suicide Attempts: 1 reported suicide attempt Psychiatric Follow-up: Dr. Yi Psychiatric medications: Multiple. Addiction History denies Social History Childhood: Patient was born in [place], [facility] she has 1 brother and 4 Sisters. According to past chart: "Patient was a slow learner, she was late in learning to ambulate, she repeated the first grade. She reports a good childhood. She has good relationship with her sisters. [facility], lives with a cat, Abuse/Trauma: Denies Current Living Situation: Currently lives on her own with cat Education: Finished high school. Employment:. She is on disability but has a past work history. Social Support:, Currently patient's parents are . She does have siblings. Legal:. Denies. Marital: Single, no children. Mental Status Examination General Appearance: well groomed, hospital scubs/clothing Build: overweight, other Demeanor: guarded Eye Contact: average Activity: slowed, anxious Behavior: cooperative Speech: clear Mood: depressed, anxious Affect: flat Thought Process: logical/linear Thought Content (Delusions): none reported Thought Content (Other): none reported Thought Content (Aggressive): none reported Perception (Hallucinations): none reported Perception (Other): none reported Cognition (Impairment of): none reported Cognition(Intelligence Est.): other (Below average) Oriented: Awake, Alert, Oriented times three Insight: fair Judgment: Fair Psychosis: Denies Diagnoses Schizoaffective, bipolar type per history and chart review Major neurocognitive disorder Alzheimer's A-FIB/CHADSVASC A-FIB History Current/History of A-Fib/PAF?: No Current PO Anticoag Therapy: No Assessment Patient is a 65-year-old Single, Retired/Disabeld, Domiciled, female who [facility] for depression and SI, she has a history of schizoaffective disorder bipolar type and reports that she has not has been compliant with medications, reports acute stressor of feeling lonely and and states that she has been decompensating, not taking care of herself or eating. She currently denies any symptoms of vicky, reports symptoms of low mood, guilt, low energy, poor concentration, decreased appetite, psychomotor changes, suicidal thoughts and decreased sleep, for the past week since she was discharged on 02/19/21 from medical unit. She is also reporting auditory hallucinations of her family members. She is prescribed Risperdal and Invega Trinza 819 mg q3 months, last dose was given December 24, 2020, agrees to continue on home medications. Patient to resume her home medications, encouraged to go to group therapies attend individual sessions with provider, participate in milieu and be in a safe environment. Length of stay 3 to 5 days will discharge later in the week. Will speak to patient's family about assisted living as this potentially could meet patient's needs and reduce her multiple admissions to the hospital. Initial Treatment Plan 1. Patient was admitted on a [9.39] status. 2. Complete history was obtained. 3. With patients permission, family will be contacted and database will be expanded. 4. Patients medication regimen will be reviewed and changed accordingly. 5. Patient will be provided with protected environment. 6. Patient will be treated with individual, group, and milieu therapies. 7. Patient will receive supportive psych-education. 8. Discharge planning will commence immediately. 9. Outpatient follow-up treatment will be strongly recommended. 10. The initial treatment plan will focus initially on: * Depression. * Risk for suicide. ESTIMATED LENGTH OF STAY: 3-5 DAYS. TIME SPENT COUNSELING AND COORDINATING INITIAL CARE: 60 minutes. Ordered/Pending Vital Signs Vital Signs Date Time Temp Pulse Resp B/P (MAP) Pulse Ox O2 Delivery O2 Flow Rate FiO2 02/25/21 08:25 108 150/74 02/25/21 01:32 20 95 Room Air 02/24/21 23:04 98.8 Laboratory Data 24H Labs Laboratory Tests 2 02/24/21 16:08: Nucleated Red Blood Cells % (auto) 0.0, Anion Gap 7L, Glomerular Filtration Rate > 60.0, Calcium Level 9.5, Total Bilirubin 0.2, Direct Bilirubin 0.1, Aspartate Amino Transf (AST/SGOT) 16, Alanine Aminotransferase (ALT/SGPT) 30, Alkaline Phosphatase 69, Total Protein 6.8, Albumin 3.9, Albumin/Globulin Ratio 1.3, Thyroid Stimulating Hormone (TSH) 0.765, Salicylates Level < 1.7L, Urine Opiates Screen NEGATIVE, Urine Methadone Screen NEGATIVE, Acetaminophen Level < 2.0L, Urine Barbiturates Screen NEGATIVE, Urine Phencyclidine Screen NEGATIVE, Urine Amphetamines Screen NEGATIVE, Urine Benzodiazepines Screen NEGATIVE, Urine Cocaine Metabolite Screen NEGATIVE, Urine Cannabinoids Screen NEGATIVE, Ethyl Alcohol Level < 0.003, Coronavirus (COVID-19)(PCR) NEGATIVE, Influenza Type A (RT-PCR) NEGATIVE, Influenza Type B (RT-PCR) NEGATIVE, Respiratory Syncytial Virus (PCR) NEGATIVE CBC/BMP Laboratory Tests 02/24/21 16:08 Medications Scheduled Benztropine Mesylate (Benztropine Mesylate) 0.5 Mg Tablet, 0.5 MG PO BID, (Reported) Calcium Carbonate (Calcium) 500 Mg Tablet, 500 MG PO DAILY, (Reported) Cholecalciferol (Vitamin D3) (Vitamin D3) 50 Mcg Capsule, 50 MCG PO DAILY, (Reported) Diclofenac Sodium (Diclofenac Sodium) 50 Mg Tablet.dr, 50 MG PO BID, (Reported) Donepezil HCl (Donepezil HCl) 10 Mg Tablet, 10 MG PO QHS, (Reported) Levothyroxine Sodium (Synthroid) 50 Mcg Tablet, 50 MCG PO DAILY, (Reported) Lisinopril (Lisinopril) 20 Mg Tablet, 20 MG PO DAILY, (Reported) Lorazepam (Lorazepam) 1 Mg Tablet, 1 MG PO TID, (Reported) Metoprolol Tartrate (Metoprolol Tartrate) 25 Mg Tablet, 25 MG PO BID, (Reported) Mirtazapine (Remeron) 15 Mg Tablet, 7.5 MG PO QHS, (Reported) Multivitamins (Thera M Plus Tablet) 1 Each Tablet, 1 TAB PO DAILY, (Reported) Paliperidone Palmitate (Invega Trinza) 819 Mg/2.625 Ml Syringe, 819 MG IM Q3M for psychosis Risperidone (Risperidone) 0.5 Mg Tablet, 0.5 MG PO BID, (Reported) Sodium Chloride (Sodium Chloride) 1 Gm Tablet, 2 GM PO TID, (Reported) Trazodone HCl (Trazodone HCl) 50 Mg Tablet, 50 MG PO QHS, (Reported) Venlafaxine HCl (Venlafaxine HCl ER) 150 Mg Cap.er.24h, 150 MG PO DAILY, (Reported) Allergies Coded Allergies: No Known Allergies (Verified , 01/25/18) TEO BARRERA NP Feb 25, 2021 10:09
[2021-02-25 16:19] VITALS: BP 105/56
--- NOTE | 2021-02-25 16:58 | HPEPDOC ---
[facility] Medical History & Physical Date of Admission Feb 24, 2021 Date of Service: Feb 25, 2021 History and Physical CHIEF COMPLAINT: HISTORY OF PRESENT ILLNESS: PAST MEDICAL HISTORY: HTN Hypothyroidism hx SIADH 2/2 medications Schizoaffective disorder Parkinsonism? 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 PAST SURGICAL HISTORY: 1. Left breast biopsy. 2. Left breast lumpectomy SOCIAL HISTORY: denies smoking, etoh use, illicit drug use FAMILY HISTORY: reviewed with patient, she is unable to provide at this time ALLERGIES: Please see below. REVIEW OF SYSTEMS: 10 point ROS conducted, relevant pertinent findings are noted in HPI. HOME MEDICATIONS: Please see below. PHYSICAL EXAMINATION: VITAL SIGNS: please see below General: patient appears very anxious HEENT: PERRLA, EOMI, sclerae clear Neck: supple, normal ROM, no JVD Respiratory: lungs CTAB, no wheeze, no rales, no crackles CVS:regular, tachycardic, normal S1, S2, no murmurs Abdo: soft, no masses, no hepatosplenomegaly, BS+, no rebound tenderness Extremities: no edema, pulses 2+, R calf tender to palpation MSK: no joint deformities, normal ROM Neuro: no focal neuro deficits, moving all 4 extremities, CN2-12 intact. Strength 5/5 in all 4 extremities. No nystagmus. Psych: calm, cooperative, AAO x 3 LABORATORY DATA: See below. IMAGING: MICROBIOLOGY: Please see below. ASSESSMENT: . . PLAN: Hyponatremia Most likely secondary to psychiatric medications causing SIADH. Patient was initially given normal saline 500 mL bolus due to hypotension but kept on fluid restriction afterwards and strict I's and O's with metabolic panel every 4 hourly and salt tablets given 3 times daily with meals 2 g with improvement to 131 and improvement of mental status no seizure activity during this admission psychiatric medications were adjusted by psychiatrist Hemolyzed hyperkalemia on admission. K 5.3 Sinus tachycardia -Negative PE on CT chest venous dopplers negative for DVT Severe anxiety/bipolar/schizoaffective disorder/poss Alzheimer's -psych adjusted medications to prevent further hyponatremia -Immediate follow-up with Dr. Yi on Dementia - Parkinsons?/Benign essential tremors -resumed home meds Hypertension - c/w home regimen, metoprolol 25 mg BID, lisinopril 20 mg daily Hypothyroidism - continue with levothyroxine -TSH 1.070 Hx breast ca - f/u oncology Vital Signs Vital Signs Date Time Temp Pulse Resp B/P (MAP) Pulse Ox O2 Delivery O2 Flow Rate FiO2 02/25/21 16:19 98.0 75 16 105/56 (72) 97 Room Air Home Medications Scheduled Benztropine Mesylate (Benztropine Mesylate) 0.5 Mg Tablet, 0.5 MG PO BID Calcium Carbonate (Calcium) 500 Mg Tablet, 500 MG PO DAILY Cholecalciferol (Vitamin D3) (Vitamin D3) 50 Mcg Capsule, 50 MCG PO DAILY Diclofenac Sodium (Diclofenac Sodium) 50 Mg Tablet.dr, 50 MG PO BID Donepezil HCl (Donepezil HCl) 10 Mg Tablet, 10 MG PO QHS Levothyroxine Sodium (Synthroid) 50 Mcg Tablet, 50 MCG PO DAILY Lisinopril (Lisinopril) 20 Mg Tablet, 20 MG PO DAILY Lorazepam (Lorazepam) 1 Mg Tablet, 1 MG PO TID Metoprolol Tartrate (Metoprolol Tartrate) 25 Mg Tablet, 25 MG PO BID Mirtazapine (Remeron) 15 Mg Tablet, 7.5 MG PO QHS Multivitamins (Thera M Plus Tablet) 1 Each Tablet, 1 TAB PO DAILY Paliperidone Palmitate (Invega Trinza) 819 Mg/2.625 Ml Syringe, 819 MG IM Q3M for psychosis Risperidone (Risperidone) 0.5 Mg Tablet, 0.5 MG PO BID Sodium Chloride (Sodium Chloride) 1 Gm Tablet, 2 GM PO TID Trazodone HCl (Trazodone HCl) 50 Mg Tablet, 50 MG PO QHS Venlafaxine HCl (Venlafaxine HCl ER) 150 Mg Cap.er.24h, 150 MG PO DAILY Allergies Coded Allergies: No Known Allergies (Verified , 01/25/18) FLOR ALEX MD Feb 25, 2021 16:58
[2021-02-26] MEDS: LEVOTHYROXINE 50MCG TABLET (0.05MG) PO SCH (05:39)
[2021-02-26 06:10] VITALS: BP 146/77
[2021-02-26] MEDS: BENZTROPINE 0.5 MG TAB PO SCH ×2 (08:22→20:13)
[2021-02-26] MEDS: VENLAFAXINE **XR** 75MG CAPSULE PO SCH (08:22)
[2021-02-26] MEDS: MULTIVITAMINS/MINERALS THERAP 1 TAB PO SCH (08:22)
[2021-02-26] MEDS: SODIUM CHLORIDE 1 GM TAB PO SCH ×3 (08:22→20:13)
[2021-02-26] MEDS: METOPROLOL TART 25 MG TABLET PO SCH ×2 (08:23→20:12)
[2021-02-26] MEDS: LORazepam 1 MG TAB PO SCH ×2 (08:23→20:12)
[2021-02-26] MEDS: risperiDONE 0.5 MG TAB PO SCH (08:23)
[2021-02-26] MEDS: OYSTER SHELL CALCIUM 500 MG TAB PO SCH (08:23)
[2021-02-26 11:38] LABS: CHOLESTEROL RISK RATIO 1.717 (<5)
--- NOTE | 2021-02-26 14:44 | MHIPNPDOC ---
[facility] Progress Note Progress Note DATE OF SERVICE: 02/26/21 HISTORY: Patient is a 65 -year-old Single, Retired, Domiciled female, who reports that she she was not taking care of herself at home since she was discharged from the hospital most recently from medical unit 02/16/21-02/19/21. She states that she was not "eating proper nutritional food. I am not a cook." She also complains that she was hearing voices of her family members telling her to "find something to do." She states that she had been weaned off some medications and she had been waking up with no will to live. She further alludes to fleeting suicidal thinking. Patient found in the hallway in [facility] walking with walker, being in the milieu and was well-kempt in hygiene and grooming this morning. PER ED REPORT Per pt. caregiver, Funmilayo ([phone]) therapist, Joelle, at [facility] told pt. and caregiver that to come to ER for evaluation. Pt. is delayed in answering questions this typewriter assembly and parts inspector asks. She lies still on stretcher during interview, does not add anything to conversation. She did answers when asked if this typewriter assembly and parts inspector could ask caregiver questions about why she is here in ER. Pt. does answer some questions on her own after pausing before answering. Pt. denies SI/HI. Caregiver, Funmilayo ([phone]) reports that pt. has not been able to function at home and has been decompensating since her d/c from medical admission on 02/19. [facility] and according to caregiver was told to come to ER for admission because pt. cannot care for self. Caregiver states that she cares for pt. 4 hours day M-. She states that pt. has not been showering, has been calling caregiver multiple times over weekend (today being Wednesday) and that caregiver saw pt. over weekend which she does not normally do. Today, pt. told caregiver that her mother has been talking to her (mother ) and mother told her that she knows too much. Pt. did not elaborate more. Caregiver reports pt. has been needing constant redirection, cannot stay focused and appearing very confused at times. Pt. does carry diagnosis of Schizoaffective and dementia. She was recently admitted to hospital for hyponatremia and had medications adjusted. VITAL SIGNS: See below. NEW TEST RESULTS: None CURRENT MEDICATIONS: See below. MENTAL STATUS EXAMINATION: Patient is a 65 -year-old Single, Retired, Domiciled female, who reports that she she was not taking care of herself at home since she was discharged from the hospital most recently from medical unit 02/16/21-02/19/21. General Appearance: well groomed, hospital scrubs/clothing Build: overweight, other Demeanor: guarded Eye Contact: average Activity: slowed, anxious Behavior: cooperative Speech: clear Mood: depressed, anxious Affect: flat Thought Process: logical/linear Thought Content (Delusions): none reported Thought Content (Other): none reported Thought Content (Aggressive): none reported Perception (Hallucinations): auditory - command at times Perception (Other): none reported Cognition (Impairment of): none reported Cognition(Intelligence Est.): other (Below average) Oriented: Awake, Alert, Oriented times three Insight: fair Judgment: Fair Psychosis: Denies DIAGNOSES: Schizoaffective, bipolar type per history and chart review Major neurocognitive disorder Alzheimer's ASSESSMENT: Observed in her bed today, reports depression and anxiety, and had minimal responses to the provider. She is attending some groups, she was not visible on the unit today as she normally is out in the milieu, social with some peers. According to staff, patient had been in her most of the morning and was only out for meals. MANAGEMENT PLAN: Continue all medications and therapies. Increased Risperdal to 1 mg BID, decreased Ativan to 1 mg BID TIME SPENT: 20 minutes. Vital Signs Vital Signs Date Time Temp Pulse Resp B/P (MAP) Pulse Ox O2 Delivery O2 Flow Rate FiO2 02/26/21 08:23 71 146/77 02/26/21 06:10 96.9 18 97 Room Air Laboratory Data 24H Labs Laboratory Tests 2 02/26/21 10:32: Triglycerides Level 39, Total Cholesterol 158, LDL Cholesterol 58, Non-HDL Cholesterol (LDL + VLDL) 66, Total HDL Cholesterol 92, Cholesterol/HDL Ratio 1.717 Current Medications Current Medications Medications (Trade) Dose Ordered Sig/Dev Route PRN Reason Start Time Stop Time Status Last Admin Dose Admin Acetaminophen (Tylenol Tab) 650 mg Q6HP PRN PO HEADACHE or MILD DISCOMFORT 02/24/21 22:05 Al Hydrox/Mg Hydrox/Simethicone (Mylanta) 30 ml Q4HP PRN PO HEARTBURN/INDIGESTION 02/24/21 22:05 Benztropine Mesylate (Cogentin) 0.5 mg BID PO 02/24/21 21:00 02/26/21 08:22 Calcium Carbonate (Oscal) 500 mg DAILY PO 02/25/21 09:00 02/26/21 08:23 Home Med (Home Med List Complete!) ASDIRECTED XX 02/24/21 20:45 02/24/21 20:46 DC Levothyroxine Sodium (Synthroid) 50 mcg DAILY@0600 PO 02/25/21 06:00 02/26/21 05:39 Lisinopril (Prinivil) 20 mg DAILY PO 02/25/21 09:00 02/26/21 08:23 Lorazepam (Ativan) 1 mg TID PO 02/24/21 21:00 02/26/21 08:23 Magnesium Hydroxide (Milk Of Magnesia) 30 ml DAILYPRN PRN PO CONSTIPATION 02/24/21 22:05 Metoprolol Tartrate (Lopressor) 25 mg BID PO 02/24/21 21:00 02/26/21 08:23 Mirtazapine (Remeron) 7.5 mg QHS PO 02/24/21 21:00 02/25/21 20:17 Multivitamins (Theragram-M) 1 tab DAILY PO 02/25/21 09:00 02/26/21 08:22 Nicotine (Nicoderm Cq 21mg) 1 patch DAILY PRN TD NICOTINE WITHDRAWAL 02/24/21 22:05 Risperidone (RisperDAL) 0.5 mg BID PO 02/24/21 21:00 02/26/21 08:23 Sodium Chloride (Sodium Chloride) 2 gm TID PO 02/24/21 21:00 02/26/21 08:22 Trazodone HCl (Desyrel) 50 mg QHSP PRN PO INSOMNIA 02/24/21 22:05 02/25/21 20:17 Venlafaxine HCl (Effexor Xr) 150 mg DAILY PO 02/25/21 09:00 02/26/21 08:22 Allergies Coded Allergies: No Known Allergies (Verified , 01/25/18) TEO BARRERA NP Feb 26, 2021 12:44
[2021-02-26 16:20] VITALS: BP 110/60
[2021-02-26] MEDS: risperiDONE 1 MG TAB PO SCH (20:12)
[2021-02-26] MEDS: MIRTAZAPINE 7.5MG PER 1/2 TABLET PO SCH (20:13)
[2021-02-27] MEDS: LEVOTHYROXINE 50MCG TABLET (0.05MG) PO SCH (05:46)
[2021-02-27 07:14] VITALS: BP 123/68
[2021-02-27] MEDS: MULTIVITAMINS/MINERALS THERAP 1 TAB PO SCH (09:14)
[2021-02-27] MEDS: OYSTER SHELL CALCIUM 500 MG TAB PO SCH (09:14)
[2021-02-27] MEDS: LORazepam 1 MG TAB PO SCH ×2 (09:14→20:06)
[2021-02-27] MEDS: risperiDONE 1 MG TAB PO SCH ×2 (09:14→20:06)
[2021-02-27] MEDS: VENLAFAXINE **XR** 75MG CAPSULE PO SCH (09:14)
[2021-02-27] MEDS: BENZTROPINE 0.5 MG TAB PO SCH ×2 (09:14→20:06)
[2021-02-27] MEDS: METOPROLOL TART 25 MG TABLET PO SCH ×2 (09:14→20:08)
[2021-02-27] MEDS: SODIUM CHLORIDE 1 GM TAB PO SCH ×3 (09:15→20:06)
--- NOTE | 2021-02-27 11:57 | MHIPNPDOC ---
[facility] Progress Note Progress Note DATE OF SERVICE: 02/27/21 HISTORY: Patient is a 65 -year-old Single, Retired, Domiciled female, who reports that she she was not taking care of herself at home since she was discharged from the hospital most recently from medical unit 02/16/21-02/19/21. She states that she was not "eating proper nutritional food. I am not a cook." She also complains that she was hearing voices of her family members telling her to "find something to do." She states that she had been weaned off some medications and she had been waking up with no will to live. She further alludes to fleeting suicidal thinking. Patient found in the hallway in [facility] walking with walker, being in the milieu and was well-kempt in hygiene and grooming this morning. PER ED REPORT Per pt. caregiver, Funmilayo ([phone]) therapist, Joelle, at [facility] told pt. and caregiver that to come to ER for evaluation. Pt. is delayed in answering questions this keno writer/runner asks. She lies still on stretcher during interview, does not add anything to conversation. She did answers when asked if this keno writer/runner could ask caregiver questions about why she is here in ER. Pt. does answer some questions on her own after pausing before answering. Pt. denies SI/HI. Caregiver, Funmilayo ([phone]) reports that pt. has not been able to function at home and has been decompensating since her d/c from medical admission on 02/19. [facility] and according to caregiver was told to come to ER for admission because pt. cannot care for self. Caregiver states that she cares for pt. 4 hours day M-. She states that pt. has not been showering, has been calling caregiver multiple times over weekend (today being Wednesday) and that caregiver saw pt. over weekend which she does not normally do. Today, pt. told caregiver that her mother has been talking to her (mother ) and mother told her that she knows too much. Pt. did not elaborate more. Caregiver reports pt. has been needing constant redirection, cannot stay focused and appearing very confused at times. Pt. does carry diagnosis of Schizoaffective and dementia. She was recently admitted to hospital for hyponatremia and had medications adjusted. VITAL SIGNS: See below. NEW TEST RESULTS: None CURRENT MEDICATIONS: See below. MENTAL STATUS EXAMINATION: Patient is a 65 -year-old Single, Retired, Domiciled female, who reports that she she was not taking care of herself at home since she was discharged from the hospital most recently from medical unit 02/16/21-02/19/21. General Appearance: well groomed, hospital scrubs/clothing Build: overweight, other Demeanor: guarded Eye Contact: average Activity: slowed, anxious Behavior: cooperative Speech: clear Mood: mildly depressed, anxious Affect: flat Thought Process: logical/linear Thought Content (Delusions): none reported Thought Content (Other): none reported Thought Content (Aggressive): none reported Perception (Hallucinations): auditory - command at times Perception (Other): none reported Cognition (Impairment of): none reported Cognition(Intelligence Est.): other (Below average) Oriented: Awake, Alert, Oriented times three Insight: fair Judgment: Fair Psychosis: Denies DIAGNOSES: Schizoaffective, bipolar type per history and chart review Major neurocognitive disorder Alzheimer's ASSESSMENT: Patient observed in the milieu, behavior in good control. Reports continued depression and some anxiety. States that she has had no improvement, although she had reported to staff that her sadness was stemmed from her room mate not talking to her. Discussed with patient her discharge criteria and patient is unable to report what she feels she needs in order for her to be safely discharged. In the past patient has returned in a short period of time after discharge. Discussed with patient that her depression appears to stem from her feelings of poor support, lack of companionship and fear of not caring for herself. Patient is caring for herself independently while hospitalized. She denied suicidal thinking today. MANAGEMENT PLAN: Continue all medications and therapies. TIME SPENT: 20 minutes. Vital Signs Vital Signs Date Time Temp Pulse Resp B/P (MAP) Pulse Ox O2 Delivery O2 Flow Rate FiO2 02/27/21 09:14 65 123/68 02/27/21 07:14 98.7 18 97 Room Air Current Medications Current Medications Medications (Trade) Dose Ordered Sig/Dev Route PRN Reason Start Time Stop Time Status Last Admin Dose Admin Acetaminophen (Tylenol Tab) 650 mg Q6HP PRN PO HEADACHE or MILD DISCOMFORT 02/24/21 22:05 Al Hydrox/Mg Hydrox/Simethicone (Mylanta) 30 ml Q4HP PRN PO HEARTBURN/INDIGESTION 02/24/21 22:05 Benztropine Mesylate (Cogentin) 0.5 mg BID PO 02/24/21 21:00 02/27/21 09:14 Calcium Carbonate (Oscal) 500 mg DAILY PO 02/25/21 09:00 02/27/21 09:14 Home Med (Home Med List Complete!) ASDIRECTED XX 02/24/21 20:45 02/24/21 20:46 DC Levothyroxine Sodium (Synthroid) 50 mcg DAILY@0600 PO 02/25/21 06:00 02/27/21 05:46 Lisinopril (Prinivil) 20 mg DAILY PO 02/25/21 09:00 02/27/21 09:14 Lorazepam (Ativan) 1 mg BID PO 02/26/21 21:00 02/27/21 09:14 Lorazepam (Ativan) 1 mg TID PO 02/24/21 21:00 02/26/21 14:43 DC 02/26/21 08:23 Magnesium Hydroxide (Milk Of Magnesia) 30 ml DAILYPRN PRN PO CONSTIPATION 02/24/21 22:05 Metoprolol Tartrate (Lopressor) 25 mg BID PO 02/24/21 21:00 02/27/21 09:14 Mirtazapine (Remeron) 7.5 mg QHS PO 02/24/21 21:00 02/26/21 20:13 Multivitamins (Theragram-M) 1 tab DAILY PO 02/25/21 09:00 02/27/21 09:14 Nicotine (Nicoderm Cq 21mg) 1 patch DAILY PRN TD NICOTINE WITHDRAWAL 02/24/21 22:05 Risperidone (RisperDAL) 0.5 mg BID PO 02/24/21 21:00 02/26/21 14:43 DC 02/26/21 08:23 Risperidone (RisperDAL) 1 mg BID PO 02/26/21 21:00 02/27/21 09:14 Sodium Chloride (Sodium Chloride) 2 gm TID PO 02/24/21 21:00 02/27/21 09:15 Trazodone HCl (Desyrel) 50 mg QHSP PRN PO INSOMNIA 02/24/21 22:05 02/25/21 20:17 Venlafaxine HCl (Effexor Xr) 150 mg DAILY PO 02/25/21 09:00 02/27/21 09:14 Allergies Coded Allergies: No Known Allergies (Verified , 01/25/18) TEO BARRERA NP Feb 27, 2021 11:57
[2021-02-27 17:46] VITALS: BP 150/87
[2021-02-27] MEDS: MIRTAZAPINE 7.5MG PER 1/2 TABLET PO SCH (20:06)
[2021-02-28] MEDS: LEVOTHYROXINE 50MCG TABLET (0.05MG) PO SCH (05:42)
[2021-02-28 08:26] VITALS: BP 125/78
[2021-02-28] MEDS: MULTIVITAMINS/MINERALS THERAP 1 TAB PO SCH (08:39)
[2021-02-28] MEDS: LORazepam 1 MG TAB PO SCH ×2 (08:39→20:15)
[2021-02-28] MEDS: BENZTROPINE 0.5 MG TAB PO SCH ×2 (08:39→20:15)
[2021-02-28] MEDS: risperiDONE 1 MG TAB PO SCH ×2 (08:39→20:15)
[2021-02-28] MEDS: SODIUM CHLORIDE 1 GM TAB PO SCH ×3 (08:39→20:16)
[2021-02-28] MEDS: METOPROLOL TART 25 MG TABLET PO SCH ×2 (08:39→20:15)
[2021-02-28] MEDS: OYSTER SHELL CALCIUM 500 MG TAB PO SCH (08:39)
[2021-02-28] MEDS: VENLAFAXINE **XR** 75MG CAPSULE PO SCH (08:40)
--- NOTE | 2021-02-28 11:30 | MHIPNPDOC ---
[facility] Progress Note Progress Note DATE OF SERVICE: 02/28/21 HISTORY:Patient is a 65 -year-old Single, Retired, Domiciled female, who reports that she she was not taking care of herself at home since she was discharged from the hospital most recently from medical unit 02/16/21-02/19/21. She states that she was not "eating proper nutritional food. I am not a cook." She also complains that she was hearing voices of her family members telling her to "find something to do." She states that she had been weaned off some medications and she had been waking up with no will to live. She further alludes to fleeting suicidal thinking. Patient found in the hallway in [facility] walking with walker, being in the milieu and was well-kempt in hygiene and grooming this morning. PER ED REPORT Per pt. caregiver, Funmilayo ([phone]) therapist, Joelle, at [facility] told pt. and caregiver that to come to ER for evaluation. Pt. is delayed in answering questions this pattern chart writer asks. She lies still on stretcher during interview, does not add anything to conversation. She did answers when asked if this pattern chart writer could ask caregiver questions about why she is here in ER. Pt. does answer some questions on her own after pausing before answering. Pt. denies SI/HI. Caregiver, Funmilayo ([phone]) reports that pt. has not been able to function at home and has been decompensating since her d/c from medical admission on 02/19. [facility] and according to caregiver was told to come to ER for admission because pt. cannot care for self. Caregiver states that she cares for pt. 4 hours day M-. She states that pt. has not been showering, has been calling caregiver multiple times over weekend (today being Wednesday) and that caregiver saw pt. over weekend which she does not normally do. Today, pt. told caregiver that her mother has been talking to her (mother ) and mother told her that she knows too much. Pt. did not elaborate more. Caregiver reports pt. has been needing constant redirection, cannot stay focused and appearing very confused at times. Pt. does carry diagnosis of Schizoaffective and dementia. She was recently admitted to hospital for hyponatremia and had medications adjusted. VITAL SIGNS: See below. NEW TEST RESULTS: None CURRENT MEDICATIONS: See below. MENTAL STATUS EXAMINATION: Patient is a 65 -year-old Single, Retired, Domiciled female, who reports that she she was not taking care of herself at home since she was discharged from the hospital most recently from medical unit 02/16/21-02/19/21. General Appearance: well groomed, hospital scrubs/clothing Build: overweight, other Demeanor: cooperative, guarded Eye Contact: average Activity: slowed, very anxious, tearful, crying throughout the interview Behavior: cooperative Speech: clear Mood: moderately depressed, anxious Affect: flat Thought Process: logical/linear Thought Content (Delusions): none reported Thought Content (Other): none reported Thought Content (Aggressive): none reported Perception (Hallucinations): auditory - command at times Perception (Other): none reported Cognition (Impairment of): none reported Cognition(Intelligence Est.): other (Below average) Oriented: Awake, Alert, Oriented times three Insight: fair Judgment: Fair Psychosis: Denies DIAGNOSES: Schizoaffective, bipolar type per history and chart review Major neurocognitive disorder Alzheimer's ASSESSMENT: Patient is observed very tremulous and crying. She states that she was in the line for her medications but another patient scared her and she was unable to t jessy her medications. She was inconsolable today, vacillates from wanting to leave the hospital but also afraid that she is not prepared to care for herself at home. She reports continued depression and anxiety. She is not observed to be stable to return home where she resides alone and has limited supports. Patient was unwilling to participate in interview because she was crying excessively and asked to return to her bed. MANAGEMENT PLAN: Continue all medications and therapies. TIME SPENT: 20 minutes. Vital Signs Vital Signs Date Time Temp Pulse Resp B/P (MAP) Pulse Ox O2 Delivery O2 Flow Rate FiO2 02/27/21 20:08 91 100/65 02/27/21 17:46 98.0 18 02/27/21 07:14 97 Room Air Current Medications Current Medications Medications (Trade) Dose Ordered Sig/Dev Route PRN Reason Start Time Stop Time Status Last Admin Dose Admin Acetaminophen (Tylenol Tab) 650 mg Q6HP PRN PO HEADACHE or MILD DISCOMFORT 12/20/21 22:05 Al Hydrox/Mg Hydrox/Simethicone (Mylanta) 30 ml Q4HP PRN PO HEARTBURN/INDIGESTION 02/24/21 22:05 Benztropine Mesylate (Cogentin) 0.5 mg BID PO 02/24/21 21:00 02/27/21 20:06 Calcium Carbonate (Oscal) 500 mg DAILY PO 02/25/21 09:00 02/27/21 09:14 Home Med (Home Med List Complete!) ASDIRECTED XX 02/24/21 20:45 02/24/21 20:46 DC Levothyroxine Sodium (Synthroid) 50 mcg DAILY@0600 PO 02/25/21 06:00 02/28/21 05:42 Lisinopril (Prinivil) 20 mg DAILY PO 02/25/21 09:00 02/27/21 09:14 Lorazepam (Ativan) 1 mg BID PO 02/26/21 21:00 02/27/21 20:06 Lorazepam (Ativan) 1 mg TID PO 02/24/21 21:00 02/26/21 14:43 DC 02/26/21 08:23 Magnesium Hydroxide (Milk Of Magnesia) 30 ml DAILYPRN PRN PO CONSTIPATION 02/24/21 22:05 Metoprolol Tartrate (Lopressor) 25 mg BID PO 02/24/21 21:00 02/27/21 09:14 Mirtazapine (Remeron) 7.5 mg QHS PO 02/24/21 21:00 02/27/21 20:06 Multivitamins (Theragram-M) 1 tab DAILY PO 02/25/21 09:00 02/27/21 09:14 Nicotine (Nicoderm Cq 21mg) 1 patch DAILY PRN TD NICOTINE WITHDRAWAL 02/24/21 22:05 Risperidone (RisperDAL) 0.5 mg BID PO 02/24/21 21:00 02/26/21 14:43 DC 02/26/21 08:23 Risperidone (RisperDAL) 1 mg BID PO 02/26/21 21:00 02/27/21 20:06 Sodium Chloride (Sodium Chloride) 2 gm TID PO 02/24/21 21:00 02/27/21 20:06 Trazodone HCl (Desyrel) 50 mg QHSP PRN PO INSOMNIA 02/24/21 22:05 02/25/21 20:17 Venlafaxine HCl (Effexor Xr) 150 mg DAILY PO 02/25/21 09:00 02/27/21 09:14 Allergies Coded Allergies: No Known Allergies (Verified , 01/25/18) TEO BARRERA NP Feb 28, 2021 07:46
[2021-02-28 17:33] VITALS: BP 113/79
[2021-02-28] MEDS: MIRTAZAPINE 7.5MG PER 1/2 TABLET PO SCH (20:15)
[2021-03-01] MEDS: LEVOTHYROXINE 50MCG TABLET (0.05MG) PO SCH (05:36)
[2021-03-01 07:06] VITALS: BP 140/67
[2021-03-01] MEDS: SODIUM CHLORIDE 1 GM TAB PO SCH ×3 (08:04→20:04)
[2021-03-01] MEDS: MULTIVITAMINS/MINERALS THERAP 1 TAB PO SCH (08:05)
[2021-03-01] MEDS: METOPROLOL TART 25 MG TABLET PO SCH ×2 (08:05→20:06)
[2021-03-01] MEDS: risperiDONE 1 MG TAB PO SCH ×2 (08:06→20:04)
[2021-03-01] MEDS: VENLAFAXINE **XR** 75MG CAPSULE PO SCH (08:06)
[2021-03-01] MEDS: BENZTROPINE 0.5 MG TAB PO SCH ×2 (08:06→20:04)
[2021-03-01] MEDS: LORazepam 1 MG TAB PO SCH ×2 (08:06→20:05)
[2021-03-01] MEDS: OYSTER SHELL CALCIUM 500 MG TAB PO SCH (08:06)
[2021-03-01 18:26] VITALS: BP 149/82
[2021-03-01] MEDS: MIRTAZAPINE 7.5MG PER 1/2 TABLET PO SCH (20:04)
[2021-03-02] MEDS: LEVOTHYROXINE 50MCG TABLET (0.05MG) PO SCH (05:32)
[2021-03-02 06:25] VITALS: BP 110/72
[2021-03-02] MEDS: SODIUM CHLORIDE 1 GM TAB PO SCH ×3 (08:24→20:37)
[2021-03-02] MEDS: MULTIVITAMINS/MINERALS THERAP 1 TAB PO SCH (08:26)
[2021-03-02] MEDS: BENZTROPINE 0.5 MG TAB PO SCH ×2 (08:26→20:37)
[2021-03-02] MEDS: risperiDONE 1 MG TAB PO SCH ×2 (08:26→20:37)
[2021-03-02] MEDS: OYSTER SHELL CALCIUM 500 MG TAB PO SCH (08:26)
[2021-03-02] MEDS: LORazepam 1 MG TAB PO SCH ×2 (08:26→20:37)
[2021-03-02] MEDS: METOPROLOL TART 25 MG TABLET PO SCH ×2 (08:27→20:39)
[2021-03-02] MEDS: VENLAFAXINE **XR** 75MG CAPSULE PO SCH (08:28)
[2021-03-02 15:41] VITALS: BP 137/79
[2021-03-02] MEDS: MIRTAZAPINE 7.5MG PER 1/2 TABLET PO SCH (20:37)
[2021-03-03] MEDS: LEVOTHYROXINE 50MCG TABLET (0.05MG) PO SCH (05:30)
[2021-03-03 05:54] VITALS: BP 151/79
[2021-03-03] MEDS: OYSTER SHELL CALCIUM 500 MG TAB PO SCH (08:13)
[2021-03-03] MEDS: SODIUM CHLORIDE 1 GM TAB PO SCH ×3 (08:14→20:25)
[2021-03-03] MEDS: BENZTROPINE 0.5 MG TAB PO SCH ×2 (08:14→20:25)
[2021-03-03] MEDS: METOPROLOL TART 25 MG TABLET PO SCH ×2 (08:14→20:25)
[2021-03-03] MEDS: risperiDONE 1 MG TAB PO SCH ×2 (08:15→20:25)
[2021-03-03] MEDS: MULTIVITAMINS/MINERALS THERAP 1 TAB PO SCH (08:15)
[2021-03-03] MEDS: LORazepam 1 MG TAB PO SCH ×2 (08:15→20:25)
[2021-03-03] MEDS: VENLAFAXINE **XR** 75MG CAPSULE PO SCH (08:15)
--- NOTE | 2021-03-03 09:57 | MHIPNPDOC ---
[facility] Progress Note Progress Note DATE OF SERVICE: 03/03/21 HISTORY: Patient is a 65 -year-old Single, Retired, Domiciled female, who reports that she she was not taking care of herself at home since she was discharged from the hospital most recently from medical unit 02/16/21-02/19/21. She states that she was not "eating proper nutritional food. I am not a cook." She also complains that she was hearing voices of her family members telling her to "find something to do." She states that she had been weaned off some medications and she had been waking up with no will to live. She further alludes to fleeting suicidal thinking. Patient found in the hallway in [facility] walking with walker, being in the milieu and was well-kempt in hygiene and grooming this morning. PER ED REPORT Per pt. caregiver, Funmilayo ([phone]) therapist, Joelle, at [facility] told pt. and caregiver that to come to ER for evaluation. Pt. is delayed in answering questions this staff writer asks. She lies still on stretcher during interview, does not add anything to conversation. She did answers when asked if this staff writer could ask caregiver questions about why she is here in ER. Pt. does answer some questions on her own after pausing before answering. Pt. denies SI/HI. Caregiver, Funmilayo ([phone]) reports that pt. has not been able to function at home and has been decompensating since her d/c from medical admission on 02/19. [facility] and according to caregiver was told to come to ER for admission because pt. cannot care for self. Caregiver states that she cares for pt. 4 hours day M-. She states that pt. has not been showering, has been calling caregiver multiple times over weekend (today being Wednesday) and that caregiver saw pt. over weekend which she does not normally do. Today, pt. told caregiver that her mother has been talking to her (mother ) and mother told her that she knows too much. Pt. did not elaborate more. Caregiver reports pt. has been needing constant redirection, cannot stay focused and appearing very confused at times. Pt. does carry diagnosis of Schizoaffective and dementia. She was recently admitted to hospital for hyponatremia and had medications adjusted. VITAL SIGNS: See below. NEW TEST RESULTS: None CURRENT MEDICATIONS: See below. MENTAL STATUS EXAMINATION: Patient is a 65 -year-old Single, Retired, Domiciled female, who reports that she she was not taking care of herself at home since she was discharged from the hospital most recently from medical unit 02/16/21-02/19/21. Speech: Is fluid, conversant, normal rate, tone and volume Language skills are intact Thought processes including: linear and coherent Thought content: reports decreased in depression and anxiety. Denies suicidal/homicidal ideation, planning or intent. Abstract reasoning, and computation: fair Description of associations: denies, none observed Description of abnormal or psychotic thoughts: denies, none observed. Judgment: fair Insight: fair Orientation: alert and oriented to person, place, time and situation Recent and remote memory: fair Attention span and concentration: good Language: expansive Fund of knowledge: average Mood: Neutral Mood Affect: reactive DIAGNOSES: Schizoaffective, bipolar type per history and chart review Major neurocognitive disorder Alzheimer's ASSESSMENT: Patient is observed out in the hallway, appears to be in better mood. She was found in her room lying down. She states that she did well over the weekend but when going out in the hallway to get her medications, she becomes very tremulous and nervous about taking her medications. She reports an improvement in her mood and feels that she would like to be discharged this week. Statea that she feels that has improvement in her depression and anxiety. Denies current suicidality or homicidality. MANAGEMENT PLAN: Continue all medications and therapies. Possibly discharge on Wednesday. TIME SPENT: 20 minutes. Vital Signs Vital Signs Date Time Temp Pulse Resp B/P (MAP) Pulse Ox O2 Delivery O2 Flow Rate FiO2 03/03/21 08:14 65 151/79 03/03/21 05:54 98.4 16 96 Room Air Current Medications Current Medications Medications (Trade) Dose Ordered Sig/Dev Route PRN Reason Start Time Stop Time Status Last Admin Dose Admin Acetaminophen (Tylenol Tab) 650 mg Q6HP PRN PO HEADACHE or MILD DISCOMFORT 02/24/21 22:05 Al Hydrox/Mg Hydrox/Simethicone (Mylanta) 30 ml Q4HP PRN PO HEARTBURN/INDIGESTION 02/24/21 22:05 Benztropine Mesylate (Cogentin) 0.5 mg BID PO 02/24/21 21:00 03/03/21 08:14 Calcium Carbonate (Oscal) 500 mg DAILY PO 02/25/21 09:00 03/03/21 08:13 Home Med (Home Med List Complete!) ASDIRECTED XX 02/24/21 20:45 02/24/21 20:46 DC Levothyroxine Sodium (Synthroid) 50 mcg DAILY@0600 PO 02/25/21 06:00 03/03/21 05:30 Lisinopril (Prinivil) 20 mg DAILY PO 02/25/21 09:00 03/03/21 08:14 Lorazepam (Ativan) 1 mg BID PO 02/26/21 21:00 03/03/21 08:15 Lorazepam (Ativan) 1 mg TID PO 02/24/21 21:00 02/26/21 14:43 DC 02/26/21 08:23 Magnesium Hydroxide (Milk Of Magnesia) 30 ml DAILYPRN PRN PO CONSTIPATION 02/24/21 22:05 Metoprolol Tartrate (Lopressor) 25 mg BID PO 02/24/21 21:00 03/03/21 08:14 Mirtazapine (Remeron) 7.5 mg QHS PO 02/24/21 21:00 03/02/21 20:37 Multivitamins (Theragram-M) 1 tab DAILY PO 02/25/21 09:00 03/03/21 08:15 Nicotine (Nicoderm Cq 21mg) 1 patch DAILY PRN TD NICOTINE WITHDRAWAL 02/24/21 22:05 Risperidone (RisperDAL) 0.5 mg BID PO 02/24/21 21:00 02/26/21 14:43 DC 02/26/21 08:23 Risperidone (RisperDAL) 1 mg BID PO 02/26/21 21:00 03/03/21 08:15 Sodium Chloride (Sodium Chloride) 2 gm TID PO 02/24/21 21:00 03/03/21 08:14 Trazodone HCl (Desyrel) 50 mg QHSP PRN PO INSOMNIA 02/24/21 22:05 02/25/21 20:17 Venlafaxine HCl (Effexor Xr) 150 mg DAILY PO 02/25/21 09:00 03/03/21 08:15 Allergies Coded Allergies: No Known Allergies (Verified , 01/25/18) TEO BARRERA NP Mar 03, 2021 09:35
[2021-03-03 18:38] VITALS: BP 141/81
[2021-03-03] MEDS: MIRTAZAPINE 7.5MG PER 1/2 TABLET PO SCH (20:25)
[2021-03-04] MEDS: LEVOTHYROXINE 50MCG TABLET (0.05MG) PO SCH (05:26)
[2021-03-04 06:54] VITALS: BP 115/71
[2021-03-04] MEDS: LORazepam 1 MG TAB PO SCH ×2 (08:14→20:37)
[2021-03-04] MEDS: METOPROLOL TART 25 MG TABLET PO SCH ×2 (08:14→20:38)
[2021-03-04] MEDS: VENLAFAXINE **XR** 75MG CAPSULE PO SCH (08:14)
[2021-03-04] MEDS: BENZTROPINE 0.5 MG TAB PO SCH ×2 (08:14→20:37)
[2021-03-04] MEDS: MULTIVITAMINS/MINERALS THERAP 1 TAB PO SCH (08:14)
[2021-03-04] MEDS: risperiDONE 1 MG TAB PO SCH ×2 (08:14→20:37)
[2021-03-04] MEDS: OYSTER SHELL CALCIUM 500 MG TAB PO SCH (08:14)
[2021-03-04] MEDS: SODIUM CHLORIDE 1 GM TAB PO SCH ×3 (08:15→20:38)
--- NOTE | 2021-03-04 12:49 | MHIPNPDOC ---
[facility] Progress Note Progress Note DATE OF SERVICE: 03/04/21 HISTORY: Patient is a 65 -year-old Single, Retired, Domiciled female, who reports that she she was not taking care of herself at home since she was discharged from the hospital most recently from medical unit 02/16/21-02/19/21. She states that she was not "eating proper nutritional food. I am not a cook." She also complains that she was hearing voices of her family members telling her to "find something to do." She states that she had been weaned off some medications and she had been waking up with no will to live. She further alludes to fleeting suicidal thinking. Patient found in the hallway in [facility] walking with walker, being in the milieu and was well-kempt in hygiene and grooming this morning. PER ED REPORT Per pt. caregiver, Funmilayo ([phone]) therapist, Joelle, at [facility] told pt. and caregiver that to come to ER for evaluation. Pt. is delayed in answering questions this staff writer asks. She lies still on stretcher during interview, does not add anything to conversation. She did answers when asked if this staff writer could ask caregiver questions about why she is here in ER. Pt. does answer some questions on her own after pausing before answering. Pt. denies SI/HI. Caregiver, Funmilayo ([phone]) reports that pt. has not been able to function at home and has been decompensating since her d/c from medical admission on 02/19. [facility] and according to caregiver was told to come to ER for admission because pt. cannot care for self. Caregiver states that she cares for pt. 4 hours day M-. She states that pt. has not been showering, has been calling caregiver multiple times over weekend (today being Wednesday) and that caregiver saw pt. over weekend which she does not normally do. Today, pt. told caregiver that her mother has been talking to her (mother ) and mother told her that she knows too much. Pt. did not elaborate more. Caregiver reports pt. has been needing constant redirection, cannot stay focused and appearing very confused at times. Pt. does carry diagnosis of Schizoaffective and dementia. She was recently admitted to hospital for hyponatremia and had medications adjusted. VITAL SIGNS: See below. NEW TEST RESULTS: None CURRENT MEDICATIONS: See below. MENTAL STATUS EXAMINATION: Patient is a 65 -year-old Single, Retired, Domiciled female, who reports that she she was not taking care of herself at home since she was discharged from the hospital most recently from medical unit 02/16/21-02/19/21. Speech: Is fluid, conversant, normal rate, tone and volume Language skills are intact Thought processes including: linear and coherent Thought content: reports decreased in depression and anxiety. Denies suicidal/homicidal ideation, planning or intent. Abstract reasoning, and computation: fair Description of associations: denies, none observed Description of abnormal or psychotic thoughts: denies, none observed. Judgment: fair Insight: fair Orientation: alert and oriented to person, place, time and situation Recent and remote memory: fair Attention span and concentration: good Language: expansive Fund of knowledge: average Mood: Neutral Mood Affect: reactive DIAGNOSES: Schizoaffective, bipolar type per history and chart review Major neurocognitive disorder Alzheimer's ASSESSMENT: Patient is observed out in the hallway, states that she has minimal depression. But that she has sadness that comes and goes. She states that she hasn't cried in a few days and that when she has many episodes of crying that she is not doing well. Today she states that she feels fair. Reports that her anxiety is only high when she has to get her medications, waiting in line. She feels that she is stable for discharge tomorrow. Smiles on approach and has a brighter mood and affect today. MANAGEMENT PLAN: Continue all medications and therapies. Possibly discharge tomorrow. TIME SPENT: 20 minutes. Vital Signs Vital Signs Date Time Temp Pulse Resp B/P (MAP) Pulse Ox O2 Delivery O2 Flow Rate FiO2 03/04/21 06:54 98.5 64 16 115/71 (86) 97 Room Air Current Medications Current Medications Medications (Trade) Dose Ordered Sig/Dev Route PRN Reason Start Time Stop Time Status Last Admin Dose Admin Acetaminophen (Tylenol Tab) 650 mg Q6HP PRN PO HEADACHE or MILD DISCOMFORT 02/24/21 22:05 Al Hydrox/Mg Hydrox/Simethicone (Mylanta) 30 ml Q4HP PRN PO HEARTBURN/INDIGESTION 02/24/21 22:05 Benztropine Mesylate (Cogentin) 0.5 mg BID PO 02/24/21 21:00 03/03/21 20:25 Calcium Carbonate (Oscal) 500 mg DAILY PO 02/25/21 09:00 03/03/21 08:13 Home Med (Home Med List Complete!) ASDIRECTED XX 02/24/21 20:45 02/24/21 20:46 DC Levothyroxine Sodium (Synthroid) 50 mcg DAILY@0600 PO 02/25/21 06:00 03/04/21 05:26 Lisinopril (Prinivil) 20 mg DAILY PO 02/25/21 09:00 03/03/21 08:14 Lorazepam (Ativan) 1 mg BID PO 02/26/21 21:00 03/03/21 20:25 Lorazepam (Ativan) 1 mg TID PO 02/24/21 21:00 02/26/21 14:43 DC 02/26/21 08:23 Magnesium Hydroxide (Milk Of Magnesia) 30 ml DAILYPRN PRN PO CONSTIPATION 02/24/21 22:05 Metoprolol Tartrate (Lopressor) 25 mg BID PO 02/24/21 21:00 03/03/21 20:25 Mirtazapine (Remeron) 7.5 mg QHS PO 02/24/21 21:00 03/03/21 20:25 Miscellaneous (Unresolved Clarification Entry) SEE LABEL COMMENTS DAILY XX 03/03/21 09:00 Multivitamins (Theragram-M) 1 tab DAILY PO 02/25/21 09:00 03/03/21 08:15 Nicotine (Nicoderm Cq 21mg) 1 patch DAILY PRN TD NICOTINE WITHDRAWAL 02/24/21 22:05 Risperidone (RisperDAL) 0.5 mg BID PO 02/24/21 21:00 02/26/21 14:43 DC 02/26/21 08:23 Risperidone (RisperDAL) 1 mg BID PO 02/26/21 21:00 03/03/21 20:25 Sodium Chloride (Sodium Chloride) 2 gm TID PO 02/24/21 21:00 03/03/21 20:25 Trazodone HCl (Desyrel) 50 mg QHSP PRN PO INSOMNIA 02/24/21 22:05 02/25/21 20:17 Venlafaxine HCl (Effexor Xr) 150 mg DAILY PO 02/25/21 09:00 03/03/21 08:15 Allergies Coded Allergies: No Known Allergies (Verified , 01/25/18) TEO BARRERA NP Mar 04, 2021 07:20
[2021-03-04 16:46] VITALS: BP 124/76
[2021-03-04] MEDS: MIRTAZAPINE 7.5MG PER 1/2 TABLET PO SCH (20:37)
[2021-03-05] MEDS: LEVOTHYROXINE 50MCG TABLET (0.05MG) PO SCH (06:17)
[2021-03-05 06:44] VITALS: BP 153/83
[2021-03-05] MEDS: OYSTER SHELL CALCIUM 500 MG TAB PO SCH (08:13)
[2021-03-05] MEDS: SODIUM CHLORIDE 1 GM TAB PO SCH (08:13)
[2021-03-05 08:14] VITALS: BP 153/83
[2021-03-05] MEDS: METOPROLOL TART 25 MG TABLET PO SCH (08:14)
[2021-03-05] MEDS: MULTIVITAMINS/MINERALS THERAP 1 TAB PO SCH (08:14)
[2021-03-05] MEDS: BENZTROPINE 0.5 MG TAB PO SCH (08:14)
[2021-03-05] MEDS: LORazepam 1 MG TAB PO SCH (08:15)
[2021-03-05] MEDS: VENLAFAXINE **XR** 75MG CAPSULE PO SCH (08:15)
[2021-03-05] MEDS: risperiDONE 1 MG TAB PO SCH (08:15)
[2021-03-05] MEDS ORDERED: RISP-8 PO (09:32)
[2021-03-05] MEDS ORDERED: BENZ0.5T23 PO (09:32)
[2021-03-05] MEDS ORDERED: ATIV1TAB7 PO (09:32)
--- NOTE | 2021-03-05 11:00 | MHDSPDOC ---
[facility] Discharge Summary Discharge Summary DATE OF ADMISSION: Feb 24, 2021 at 22:04 DATE OF DISCHARGE: March 05, 2021 1043 DISCHARGE DIAGNOSES: Schizoaffective, bipolar type per history and chart review Major neurocognitive disorder Alzheimer's REASON FOR ADMISSION: Patient is a 65 -year-old Single, Retired, Domiciled female, who reports that she she was not taking care of herself at home since she was discharged from the hospital most recently from medical unit 02/16/21-02/19/21. She states that she was not "eating proper nutritional food. I am not a cook." She also complains that she was hearing voices of her family members telling her to "find something to do." She states that she had been weaned off some medications and she had been waking up with no will to live. She further alludes to fleeting suicidal thinking. Patient found in the hallway in [facility] walking with walker, being in the milieu and was well-kempt in hygiene and grooming this morning. PER ED REPORT Per pt. caregiver, Funmilayo ([phone]) therapist, Flo, at [facility] told pt. and caregiver that to come to ER for evaluation. Pt. is delayed in answering questions this senior medical writer asks. She lies still on stretcher during interview, does not add anything to conversation. She did answers when asked if this senior medical writer could ask caregiver questions about why she is here in ER. Pt. does answer some questions on her own after pausing before answering. Pt. denies SI/HI. Caregiver, Funmilayo ([phone]) reports that pt. has not been able to function at home and has been decompensating since her d/c from medical admission on 02/19. Pt. went to out-pt. appt today and according to caregiver was told to come to ER for admission because pt. cannot care for self. Caregiver states that she cares for pt. 4 hours day M-F. She states that pt. has not been showering, has been calling caregiver multiple times over weekend (today being Wednesday) and that caregiver saw pt. over weekend which she does not normally do. Today, pt. told caregiver that her mother has been talking to her (mother ) and mother told her that she knows too much. Pt. did not elaborate more. Caregiver reports pt. has been needing constant redirection, cannot stay focused and appearing very confused at times. Pt. does carry diagnosis of Schizoaffective and dementia. She was recently admitted to hospital for hyponatremia and had medications adjusted. VITAL SIGNS: See below. CONSULTANTS INVOLVED: See Medical H + P by Hospitalist TREATMENT AND PROGRESS ON THE UNIT: Patient was admitted to the [facility] on a 9.39 legal status was afforded the following treatment modalities: 1) Individual Therapy 2) Group Therapy 3) Medication Management 4) Milieu Therapy 5) Safe Environment HOSPITAL COURSE: Patient was admitted to [facility] on a 9.39 legal status. She was admitted to [facility] for her refusal to care for herself and reports of vague suicidal ideations. Patient was resumed on her home medications with a titration of Risperdal to 1 mg BID and Ativan decreased to 1 mg BID. Her Ativan was 1 mg TID but with her advanced age and no supervision of her medications, the Ativan was reduced. Patient had reported anxiety and nervousness only when she had to linoleum floor layer line to get her medications. She found medications beneficial and tolerated them well. Mood, anxiety, and intrusive thoughts improved with treatment. Pt attended groups daily during stay. Pts symptoms improved with treatment. On day of discharge pt. denied depression, anxiety, insomnia, SI/HI, hallucinations, delusions. Pt was discharged home with follow- up with [facility]. Patient's biggest complaint is being alone and feelings of loneliness. She states that she is on the waiting list for assisted living and that she does not have much interaction with other residents/tenants at [facility]. She states that she is ready to be home with her cat who was being cared for by her sister. She reports a decrease in her depression, states "I need to go" when asked about her discharge today. She did have some apprehension about going home, but states that this is due to feeling lonely. She denied any self-harm thoughts and states that she will call her sister for transport. She had reported having fears that she will not take showers but states that she often tries to get out of taking them even with her Aide. At this time, patient does not appear to meet any criteria for continued admission. Pt felt safe for discharge. DISCHARGE ASSESSMENT: In today's interview, patient is alert and oriented, pt.s dress is appropriate. Hygiene and grooming is disheveled. Smiles on approach and is pleasant and engaged in the interview. Denies depression and anxiety. Denies suicidal and homicidal ideation, planning or intent. Denies and is not observed with vicky, psychotic symptoms of delusions, bizarre thinking, obsessions, paranoia, ruminations illogical thoughts, flight of ideas or having poor insight and judgement. Reinforced with patient need to abstain from alcohol and drugs. At discharge patient has normal mentation, declines further hospitalization on a voluntary status and meets criteria for discharge today. Discussed indications of medications, potential benefits and risks, alternatives (including no treatment) and questions were encouraged and answered. Patient encouraged to return to hospital if symptoms worsen or change and encouraged to call unit if he/she/they needs to speak to provider for questions regarding medications or care. MENTAL STATUS EXAMINATION ON DISCHARGE: Patient is a 65 -year-old Single, Retired, Domiciled female, who reports that she she was not taking care of herself at home since she was discharged from the hospital most recently from medical unit 02/16/21-02/19/21. Speech: Is fluid, conversant, normal rate, tone and volume Language skills are intact Thought processes including: linear and goal oriented Thought content: denies depression and anxiety. Denies suicidal/homicidal ideation, planning or intent. Abstract reasoning, and computation: fair Description of associations: denies, none observed Description of abnormal or psychotic thoughts: denies, none observed. Judgment: fair Insight: fair Orientation: alert and oriented to person, place, time and situation Recent and remote memory: intact Attention span and concentration: good Language: expansive Fund of knowledge: average Mood: Euthymic Mood Affect: reactive Suicide Risk Assessment: 1) Does the patient wish to be ? No 2) Since your admission, have you had any actual thought of killing yourself? No 3) Since your admission, have you been thinking about how you might do this? No 4) Since your admission, have you had these thoughts and had some intention of acting on them? No 5) Since your admission, have you started to work out or worked out the details of how to kill yourself? No 5A) Do you intent to carry out this plan? No and NA 6) Have you ever done anything, started anything, or prepared to do anything with any intent to ? No 6A) How long since your admission did you do any of these? NA MEDICATIONS ON DISCHARGE: See Medication Reconciliation PLAN/FOLLOWUP ARRANGEMENTS: Case Management * Therapist SHAY * * Additional information SHAY IS A DATABASE ENGINEER [facility] IF NEEDED FEEL FREE TO CALL HER AT THE NUMBER LISTED ABOVE Follow Up Care Education Label * Mental Health Appt 1 * Mental Health Confucianist * Established With This Provider Yes * Therapist FLO * Date Mar 04, 2021 * Time 10:00 * Address of Clinic or Practice [address] [place] [address] * * Additional information PATIENT STILL INPATIENT APPOINTMENT WAS CANCELLED. Follow Up Care Education Label * Mental Health Appt 2 * Mental Health Confucianist BH * Established With This Provider Yes * Therapist DR. PEARSON * Date Mar 12, 2021 * Time 11:20 * Address of Clinic or Practice [address] [place] [address] * Follow Up Care Education Label * Mental Health Appt 3 * Mental Health Confucianist * Established With This Provider Yes * Therapist FLO * Date Mar 19, 2021 * Time 15:00 * Address of Clinic or Practice [address] [place] [address] * Follow Up Care Education Label * Medical * Medical Follow Up [facility] * Established With This Provider Yes * Therapist FRANCHESCA BURK * Date Mar 12, 2021 * Time 14:00 * Address of Clinic or Practice [address] [place] [address] * Follow Up Care Education Label * Medical * Medical Follow Up [facility] * Established With This Provider Yes * Therapist FRANCHESCA BURK * Date Mar 12, 2021 * Time 14:00 * Address of Clinic or Practice [address] [place] [address] * Follow Up Care Education Label * Medical * Medical Follow Up [facility] * Established With This Provider Yes * Therapist FRANCHESCA BURK * Date Mar 12, 2021 * Time 14:00 * Address of Clinic or Practice [address] [place] [address] * The amount of time spent in the coordination of care for this patient was approximately 25 minutes. ETOH/Disorder Med Rx ETOH/DRUG DISORDER RX: N/A Vital Signs/I&Os Vital Signs Date Time Temp Pulse Resp B/P (MAP) Pulse Ox O2 Delivery O2 Flow Rate FiO2 03/05/21 08:14 58 153/83 03/05/21 06:44 98.8 18 97 Room Air Medications Scheduled Benztropine Mesylate (Benztropine Mesylate) 0.5 Mg Tablet, 0.5 MG PO BID for EPS, #14 Calcium Carbonate (Calcium) 500 Mg Tablet, 500 MG PO DAILY, (Reported) Cholecalciferol (Vitamin D3) (Vitamin D3) 50 Mcg Capsule, 50 MCG PO DAILY, (Reported) Diclofenac Sodium (Diclofenac Sodium) 50 Mg Tablet.dr, 50 MG PO BID, (Reported) Levothyroxine Sodium (Synthroid) 50 Mcg Tablet, 50 MCG PO DAILY, (Reported) Lisinopril (Lisinopril) 20 Mg Tablet, 20 MG PO DAILY, (Reported) Lorazepam (Ativan) 1 Mg Tablet, 1 MG PO BID for Anxiety, #14 Metoprolol Tartrate (Metoprolol Tartrate) 25 Mg Tablet, 25 MG PO BID, (Reported) Mirtazapine (Remeron) 15 Mg Tablet, 7.5 MG PO QHS, (Reported) Multivitamins (Thera M Plus Tablet) 1 Each Tablet, 1 TAB PO DAILY, (Reported) Paliperidone Palmitate (Invega Trinza) 819 Mg/2.625 Ml Syringe, 819 MG IM Q3M for psychosis, #1 Risperidone (Risperidone) 1 Mg Tablet, 1 MG PO BID for Psychosis, #14 Sodium Chloride (Sodium Chloride) 1 Gm Tablet, 2 GM PO TID, (Reported) Trazodone HCl (Trazodone HCl) 50 Mg Tablet, 50 MG PO QHS, (Reported) Venlafaxine HCl (Venlafaxine HCl ER) 150 Mg Cap.er.24h, 150 MG PO DAILY, (Reported) Allergies Coded Allergies: No Known Allergies (Verified , 01/25/18) TEO BARRERA NP Mar 05, 2021 10:46
[2021-03-06] MEDS ORDERED: DONE10TA90 PO (16:48)
[2021-03-06] MEDS ORDERED: RISP-8 PO (17:41)
[2021-03-06] MEDS ORDERED: INVE1.75 IM (17:41)
[2021-03-06] MEDS ORDERED: BENZ0.5T23 PO (17:41)
[2021-03-06] MEDS ORDERED: LORA1TAB4 PO (17:41)
== END 2021-03-05 14:04 | disposition home or self-care (01) | DRG 885 ==
LOC: M ED 15:02 → M ED INP 22:04 → M PSY 23:49
PROVIDERS: ADMIT Psychiatry & Neurology Psychiatry; ATTEND Psychiatry & Neurology Psychiatry
DX: F25.0 Schizoaffective disorder, bipolar type (principal); E87.1 Hypo-osmolality and hyponatremia; G30.9 Alzheimer's disease, unspecified; F02.80 Dementia in other diseases classified elsewhere, unspecified severity, without behavioral disturbance, psychotic disturbance, mood disturbance, and anxiety; Z79.899 Other long term (current) drug therapy; J45.20 Mild intermittent asthma, uncomplicated; I10 Essential (primary) hypertension; E03.9 Hypothyroidism, unspecified; E66.01 Morbid (severe) obesity due to excess calories; H52.209 Unspecified astigmatism, unspecified eye; E87.6 Hypokalemia; Z85.3 Personal history of malignant neoplasm of breast

== ENCOUNTER 2021-03-19 03:29 | Inpatient (IN) | payer MEDICARE, OTHER ==
[~2021-03-19] VITALS: Ht 162.6 cm; Wt 74.3 kg
[~2021-03-19 03:29] MED LIST changes: +DONE-1 PO; -DONETAB6 PO; -LATU40TA PO; +LATU40TA2 PO; +RISP-7 PO
[2021-03-19 05:34] LABS: HEMATOCRIT 38.4 % (36.0-47.0); HEMOGLOBIN 13.1 g/dl (12.0-15.5); MEAN CORPUSCULAR HEMOGLOBIN 30.9 pg (27.0-33.0); MEAN CORPUSCULAR HGB CONC 34.1 g/dl (32.0-36.5); MEAN CORPUSCULAR VOLUME 90.6 fl (80.0-96.0); PLATELET COUNT, AUTOMATED 280 10^3/uL (150-450); RED BLOOD COUNT 4.24 10^6/uL (4.00-5.40); WHITE BLOOD COUNT 9.4 10^3/uL (4.0-10.0)
[2021-03-19] MEDS ORDERED: LEVOTHYROXINE 50MCG TABLET (0.05MG) PO SCH (06:00)
[2021-03-19 06:12] LABS: RSV AMPLIFICATION NEGATIVE (NEGATIVE)
[2021-03-19 06:19] LABS: ACETAMINOPHEN LEVEL < 2.0 UG/ML (10.0-30.0); ALBUMIN 4.1 GM/DL (3.2-5.2); ALT/SGPT 26 U/L (12-78); BILIRUBIN,DIRECT 0.1 MG/DL (0.0-0.2); BILIRUBIN,TOTAL 0.4 MG/DL (0.2-1.0); BLOOD UREA NITROGEN 13 MG/DL (7-18); CARBON DIOXIDE LEVEL 25 MEQ/L (21-32); CHLORIDE LEVEL 103 MEQ/L (98-107); CREATININE FOR GFR 0.78 MG/DL (0.55-1.30); ETHYL ALCOHOL (ETHANOL) < 0.003 % (0.000-0.010); GLOMERULAR FILTRATION RATE > 60.0 (>45); GLUCOSE, FASTING 120 MG/DL (70-100); POTASSIUM SERUM 3.9 MEQ/L (3.5-5.1); SALICYLATE LEVEL < 1.7 MG/DL (5.0-30.0); SODIUM LEVEL 138 MEQ/L (136-145); THYROID STIMULATING HORMONE 0.684 uIU/ML (0.358-3.740)
[2021-03-19] MEDS ORDERED: RISP-7 PO (08:40)
[2021-03-19] MEDS ORDERED: RISP-8 PO (08:41)
[2021-03-19] MEDS ORDERED: MED NOTE (08:45)
[2021-03-19] MEDS ORDERED: HOME MED LIST COMPLETE! XX SCH (08:50)
[2021-03-19] MEDS: BENZTROPINE 0.5 MG TAB PO SCH ×2 (09:00→22:24)
[2021-03-19] MEDS ORDERED: METOPROLOL TART 25 MG TABLET PO SCH (09:00)
[2021-03-19] MEDS: risperiDONE 1 MG TAB PO SCH ×2 (09:00→22:24)
[2021-03-19] MEDS ORDERED: VENLAFAXINE **XR** 75MG CAPSULE PO SCH (09:00)
[2021-03-19 15:18] LABS: AMPHETAMINES LEVEL URINE NEGATIVE (NEGATIVE); BARBITURATES URINE NEGATIVE (NEGATIVE); BENZODIAZEPINES URINE NEGATIVE (NEGATIVE); CANNABINOIDS URINE NEGATIVE (NEGATIVE); COCAINE METABOLITE URINE NEGATIVE (NEGATIVE); METHADONE URINE NEGATIVE (NEGATIVE); OPIATES URINE NEGATIVE (NEGATIVE); PHENCYCLIDINE URINE NEGATIVE (NEGATIVE)
[2021-03-19] MEDS ORDERED: MOM 30ML SUSPENSION UDC PO PRN (16:40)
[2021-03-19] MEDS ORDERED: MAALOX 30 ML SUSP *UDC PO PRN (16:40)
[2021-03-19] MEDS ORDERED: MIRTAZAPINE 7.5MG PER 1/2 TABLET PO SCH (21:00)
[2021-03-19] MEDS ORDERED: BENZTROPINE 0.5 MG TAB PO SCH (21:00)
[2021-03-19] MEDS ORDERED: traZODone 50 MG TAB PO SCH (21:00)
[2021-03-19] MEDS ORDERED: DONEPEZIL 5 MG TAB PO SCH (21:00)
[2021-03-19] MEDS: SODIUM CHLORIDE 1 GM TAB PO SCH (22:23)
[2021-03-19] MEDS: DONEPEZIL 5 MG TAB PO SCH (22:23)
[2021-03-19] MEDS: METOPROLOL TART 25 MG TABLET PO SCH (22:24)
[2021-03-19] MEDS: MIRTAZAPINE 7.5MG PER 1/2 TABLET PO SCH (22:24)
[2021-03-19] MEDS: LORazepam 1 MG TAB PO SCH (22:25)
[2021-03-19] MEDS: traZODone 50 MG TAB PO PRN (22:28)
[2021-03-19 22:50] VITALS: BP 108/75
[2021-03-20] MEDS: LEVOTHYROXINE 50MCG TABLET (0.05MG) PO SCH (05:44)
[2021-03-20] MEDS ORDERED: LEVOTHYROXINE 50MCG TABLET (0.05MG) PO SCH (06:00)
[2021-03-20 06:53] VITALS: BP 151/86
[2021-03-20] MEDS: OYSTER SHELL CALCIUM 500 MG TAB PO SCH (08:11)
[2021-03-20] MEDS: METOPROLOL TART 25 MG TABLET PO SCH ×2 (08:12→20:06)
[2021-03-20] MEDS: MULTIVITAMINS/MINERALS THERAP 1 TAB PO SCH (08:12)
[2021-03-20] MEDS: BENZTROPINE 0.5 MG TAB PO SCH ×2 (08:12→20:06)
[2021-03-20] MEDS: VENLAFAXINE **XR** 75MG CAPSULE PO SCH (08:13)
[2021-03-20] MEDS: risperiDONE 1 MG TAB PO SCH ×2 (08:13→20:06)
[2021-03-20] MEDS: SODIUM CHLORIDE 1 GM TAB PO SCH ×3 (08:13→20:06)
[2021-03-20] MEDS: LORazepam 1 MG TAB PO SCH ×2 (08:14→20:07)
[2021-03-20 18:00] VITALS: BP 124/77
[2021-03-20] MEDS: DONEPEZIL 5 MG TAB PO SCH (20:06)
[2021-03-20] MEDS: MIRTAZAPINE 7.5MG PER 1/2 TABLET PO SCH (20:06)
[2021-03-20] MEDS: traZODone 50 MG TAB PO PRN (20:07)
[2021-03-21] MEDS: LEVOTHYROXINE 50MCG TABLET (0.05MG) PO SCH (05:33)
[2021-03-21 06:19] VITALS: BP 141/86
[2021-03-21] MEDS: SODIUM CHLORIDE 1 GM TAB PO SCH ×3 (08:03→20:20)
[2021-03-21] MEDS: MULTIVITAMINS/MINERALS THERAP 1 TAB PO SCH (08:03)
[2021-03-21] MEDS: OYSTER SHELL CALCIUM 500 MG TAB PO SCH (08:03)
[2021-03-21] MEDS: BENZTROPINE 0.5 MG TAB PO SCH ×2 (08:04→20:21)
[2021-03-21] MEDS: VENLAFAXINE **XR** 75MG CAPSULE PO SCH (08:05)
[2021-03-21] MEDS: LORazepam 1 MG TAB PO SCH ×2 (08:05→20:21)
[2021-03-21] MEDS: METOPROLOL TART 25 MG TABLET PO SCH ×2 (08:05→20:21)
[2021-03-21] MEDS: risperiDONE 1 MG TAB PO SCH ×2 (08:05→20:21)
[2021-03-21] MEDS: LIDOCAINE 5% (LIDODERM) PATCH TD SCH (14:26)
[2021-03-21 16:12] VITALS: BP 130/64
[2021-03-21] MEDS: MIRTAZAPINE 7.5MG PER 1/2 TABLET PO SCH (20:20)
[2021-03-21] MEDS: DONEPEZIL 5 MG TAB PO SCH (20:20)
[2021-03-21] MEDS: **NOTE PATIENT COMMENT** MISC XX SCH (20:23)
[2021-03-22] MEDS: LEVOTHYROXINE 50MCG TABLET (0.05MG) PO SCH (05:41)
[2021-03-22 06:54] VITALS: BP 122/60
[2021-03-22] MEDS: BENZTROPINE 0.5 MG TAB PO SCH ×2 (08:03→20:18)
[2021-03-22] MEDS: OYSTER SHELL CALCIUM 500 MG TAB PO SCH (08:03)
[2021-03-22] MEDS: METOPROLOL TART 25 MG TABLET PO SCH ×2 (08:03→20:18)
[2021-03-22] MEDS: SODIUM CHLORIDE 1 GM TAB PO SCH ×3 (08:04→20:18)
[2021-03-22] MEDS: VENLAFAXINE **XR** 75MG CAPSULE PO SCH (08:05)
[2021-03-22] MEDS: MULTIVITAMINS/MINERALS THERAP 1 TAB PO SCH (08:05)
[2021-03-22] MEDS: risperiDONE 1 MG TAB PO SCH ×2 (08:05→20:18)
[2021-03-22] MEDS: LORazepam 1 MG TAB PO SCH ×2 (08:05→20:18)
[2021-03-22] MEDS: LIDOCAINE 5% (LIDODERM) PATCH TD SCH (08:20)
[2021-03-22 17:35] VITALS: BP 142/74
[2021-03-22] MEDS: MIRTAZAPINE 7.5MG PER 1/2 TABLET PO SCH (20:18)
[2021-03-22] MEDS: DONEPEZIL 5 MG TAB PO SCH (20:18)
[2021-03-22] MEDS: **NOTE PATIENT COMMENT** MISC XX SCH (20:19)
[2021-03-23] MEDS: LEVOTHYROXINE 50MCG TABLET (0.05MG) PO SCH (05:40)
[2021-03-23 06:55] VITALS: BP 157/89
[2021-03-23] MEDS: LIDOCAINE 5% (LIDODERM) PATCH TD SCH (09:00)
[2021-03-23] MEDS: BENZTROPINE 0.5 MG TAB PO SCH ×2 (09:10→20:03)
[2021-03-23] MEDS: OYSTER SHELL CALCIUM 500 MG TAB PO SCH (09:10)
[2021-03-23] MEDS: MULTIVITAMINS/MINERALS THERAP 1 TAB PO SCH (09:12)
[2021-03-23] MEDS: METOPROLOL TART 25 MG TABLET PO SCH ×2 (09:12→20:05)
[2021-03-23] MEDS: risperiDONE 1 MG TAB PO SCH ×2 (09:13→20:03)
[2021-03-23] MEDS: VENLAFAXINE **XR** 75MG CAPSULE PO SCH (09:13)
[2021-03-23] MEDS: SODIUM CHLORIDE 1 GM TAB PO SCH ×3 (09:14→20:03)
[2021-03-23] MEDS: LORazepam 1 MG TAB PO SCH ×2 (09:14→20:03)
[2021-03-23] MEDS: ACETAMINOPHEN TAB 650MG DOSE (2X325MG) PO PRN (19:46)
[2021-03-23] MEDS: MIRTAZAPINE 7.5MG PER 1/2 TABLET PO SCH (20:03)
[2021-03-23] MEDS: DONEPEZIL 5 MG TAB PO SCH (20:04)
[2021-03-23] MEDS: **NOTE PATIENT COMMENT** MISC XX SCH (20:05)
[2021-03-24] MEDS: LEVOTHYROXINE 50MCG TABLET (0.05MG) PO SCH (05:39)
[2021-03-24 06:39] VITALS: BP 154/83
[2021-03-24] MEDS: LIDOCAINE 5% (LIDODERM) PATCH TD SCH (08:31)
[2021-03-24] MEDS: SODIUM CHLORIDE 1 GM TAB PO SCH ×3 (08:33→20:21)
[2021-03-24] MEDS: VENLAFAXINE **XR** 75MG CAPSULE PO SCH (08:34)
[2021-03-24] MEDS: LORazepam 1 MG TAB PO SCH ×2 (08:34→20:22)
[2021-03-24] MEDS: OYSTER SHELL CALCIUM 500 MG TAB PO SCH (08:34)
[2021-03-24] MEDS: BENZTROPINE 0.5 MG TAB PO SCH ×2 (08:34→20:23)
[2021-03-24] MEDS: risperiDONE 1 MG TAB PO SCH ×2 (08:34→20:23)
[2021-03-24] MEDS: MULTIVITAMINS/MINERALS THERAP 1 TAB PO SCH (08:34)
[2021-03-24] MEDS: METOPROLOL TART 25 MG TABLET PO SCH ×2 (08:35→20:23)
[2021-03-24 16:02] VITALS: BP 119/76
[2021-03-24] MEDS: MIRTAZAPINE 7.5MG PER 1/2 TABLET PO SCH (20:22)
[2021-03-24] MEDS: DONEPEZIL 5 MG TAB PO SCH (20:23)
[2021-03-24] MEDS: **NOTE PATIENT COMMENT** MISC XX SCH (20:23)
[2021-03-25] MEDS: LEVOTHYROXINE 50MCG TABLET (0.05MG) PO SCH (05:57)
[2021-03-25 06:33] VITALS: BP 134/75
[2021-03-25] MEDS: BENZTROPINE 0.5 MG TAB PO SCH ×2 (08:04→20:37)
[2021-03-25] MEDS: LORazepam 1 MG TAB PO SCH ×2 (08:04→20:37)
[2021-03-25] MEDS: MULTIVITAMINS/MINERALS THERAP 1 TAB PO SCH (08:04)
[2021-03-25] MEDS: OYSTER SHELL CALCIUM 500 MG TAB PO SCH (08:04)
[2021-03-25] MEDS: risperiDONE 1 MG TAB PO SCH ×2 (08:04→20:38)
[2021-03-25] MEDS: VENLAFAXINE **XR** 75MG CAPSULE PO SCH (08:04)
[2021-03-25] MEDS: SODIUM CHLORIDE 1 GM TAB PO SCH ×3 (08:05→20:37)
[2021-03-25] MEDS: METOPROLOL TART 25 MG TABLET PO SCH ×2 (08:06→20:48)
[2021-03-25] MEDS: LIDOCAINE 5% (LIDODERM) PATCH TD SCH (09:00)
[2021-03-25 12:57] LABS: BASO % 0.3 % (0.0-1.0); EOS # 0.1 10^3/uL (0.0-0.5); EOS % 0.5 % (0.0-3.0); HEMATOCRIT 39.1 % (36.0-47.0); LYMPH # 0.3 10^3/uL (1.5-5.0); MEAN CORPUSCULAR HEMOGLOBIN 30.7 pg (27.0-33.0); MEAN CORPUSCULAR HGB CONC 33.2 g/dl (32.0-36.5); MEAN CORPUSCULAR VOLUME 92.2 fl (80.0-96.0); MONO # 0.3 10^3/uL (0.0-0.8); MONO % 2.9 % (2.0-8.0); NEUTROPHILS # 10.1 10^3/uL (1.5-8.5); NEUTROPHILS % 93.1 % (36.0-66.0); PLATELET COUNT, AUTOMATED 267 10^3/uL (150-450); RED BLOOD COUNT 4.24 10^6/uL (4.00-5.40); WHITE BLOOD COUNT 10.9 10^3/uL (4.0-10.0)
[2021-03-25 13:21] LABS: ERYTHROCYTE SEDIMENTATION RATE 7 mm/hr (0-30)
[2021-03-25 13:22] LABS: ALBUMIN 3.6 GM/DL (3.2-5.2); ALT/SGPT 25 U/L (12-78); BILIRUBIN,TOTAL 0.2 MG/DL (0.2-1.0); BLOOD UREA NITROGEN 17 MG/DL (7-18); C REACTIVE PROTEIN QUANTITATIV 0.52 MG/DL (0.00-0.30); CARBON DIOXIDE LEVEL 27 MEQ/L (21-32); CHLORIDE LEVEL 99 MEQ/L (98-107); GLOMERULAR FILTRATION RATE > 60.0 (>45); GLUCOSE, FASTING 81 MG/DL (70-100); POTASSIUM SERUM 4.4 MEQ/L (3.5-5.1); SODIUM LEVEL 133 MEQ/L (136-145); TOTAL PROTEIN 6.2 GM/DL (6.4-8.2)
[2021-03-25 16:44] VITALS: BP 129/66
[2021-03-25] MEDS: MIRTAZAPINE 7.5MG PER 1/2 TABLET PO SCH (20:37)
[2021-03-25] MEDS: DONEPEZIL 5 MG TAB PO SCH (20:38)
[2021-03-25] MEDS: **NOTE PATIENT COMMENT** MISC XX SCH (20:49)
[2021-03-26] MEDS: LEVOTHYROXINE 50MCG TABLET (0.05MG) PO SCH (06:19)
[2021-03-26 06:44] VITALS: BP 143/82
[2021-03-26] MEDS: METOPROLOL TART 25 MG TABLET PO SCH ×2 (08:53→20:01)
[2021-03-26] MEDS: VENLAFAXINE **XR** 75MG CAPSULE PO SCH (08:53)
[2021-03-26] MEDS: LORazepam 1 MG TAB PO SCH ×2 (08:53→20:00)
[2021-03-26] MEDS: MULTIVITAMINS/MINERALS THERAP 1 TAB PO SCH (08:54)
[2021-03-26] MEDS: BENZTROPINE 0.5 MG TAB PO SCH ×2 (08:54→20:00)
[2021-03-26] MEDS: OYSTER SHELL CALCIUM 500 MG TAB PO SCH (08:54)
[2021-03-26] MEDS: SODIUM CHLORIDE 1 GM TAB PO SCH ×3 (08:54→20:02)
[2021-03-26] MEDS: risperiDONE 1 MG TAB PO SCH ×2 (08:54→20:00)
[2021-03-26] MEDS: LIDOCAINE 5% (LIDODERM) PATCH TD SCH (08:55)
[2021-03-26 11:09] LABS: BLOOD UREA NITROGEN 9 MG/DL (7-18); CALCIUM LEVEL 8.3 MG/DL (8.8-10.2); CARBON DIOXIDE LEVEL 28 MEQ/L (21-32); CHLORIDE LEVEL 105 MEQ/L (98-107); CREATININE FOR GFR 0.67 MG/DL (0.55-1.30); GLOMERULAR FILTRATION RATE > 60.0 (>45); GLUCOSE, FASTING 122 MG/DL (70-100); POTASSIUM SERUM 3.8 MEQ/L (3.5-5.1); SODIUM LEVEL 137 MEQ/L (136-145)
[2021-03-26 16:06] VITALS: BP 133/70
[2021-03-26] MEDS: DONEPEZIL 5 MG TAB PO SCH (20:00)
[2021-03-26] MEDS: MIRTAZAPINE 7.5MG PER 1/2 TABLET PO SCH (20:00)
[2021-03-26] MEDS: **NOTE PATIENT COMMENT** MISC XX SCH (20:02)
[2021-03-27] MEDS: LEVOTHYROXINE 50MCG TABLET (0.05MG) PO SCH (06:28)
[2021-03-27 06:53] VITALS: BP 145/85
[2021-03-27] MEDS: OYSTER SHELL CALCIUM 500 MG TAB PO SCH (08:09)
[2021-03-27] MEDS: BENZTROPINE 0.5 MG TAB PO SCH ×2 (08:10→20:22)
[2021-03-27] MEDS: METOPROLOL TART 25 MG TABLET PO SCH ×2 (08:10→20:22)
[2021-03-27] MEDS: SODIUM CHLORIDE 1 GM TAB PO SCH ×3 (08:11→20:21)
[2021-03-27] MEDS: risperiDONE 1 MG TAB PO SCH ×2 (08:12→20:21)
[2021-03-27] MEDS: VENLAFAXINE **XR** 75MG CAPSULE PO SCH (08:12)
[2021-03-27] MEDS: MULTIVITAMINS/MINERALS THERAP 1 TAB PO SCH (08:12)
[2021-03-27] MEDS: LORazepam 1 MG TAB PO SCH ×2 (08:12→20:21)
[2021-03-27] MEDS: LIDOCAINE 5% (LIDODERM) PATCH TD SCH (09:00)
[2021-03-27 18:51] VITALS: BP 149/84
[2021-03-27] MEDS: MIRTAZAPINE 7.5MG PER 1/2 TABLET PO SCH (20:21)
[2021-03-27] MEDS: DONEPEZIL 5 MG TAB PO SCH (20:21)
[2021-03-27] MEDS: **NOTE PATIENT COMMENT** MISC XX SCH (20:23)
[2021-03-28] MEDS: LEVOTHYROXINE 50MCG TABLET (0.05MG) PO SCH (05:51)
[2021-03-28 06:38] VITALS: BP 139/88
[2021-03-28] MEDS: risperiDONE 1 MG TAB PO SCH ×2 (08:08→20:01)
[2021-03-28] MEDS: BENZTROPINE 0.5 MG TAB PO SCH ×2 (08:08→20:01)
[2021-03-28] MEDS: OYSTER SHELL CALCIUM 500 MG TAB PO SCH (08:08)
[2021-03-28] MEDS: SODIUM CHLORIDE 1 GM TAB PO SCH ×3 (08:08→20:01)
[2021-03-28] MEDS: METOPROLOL TART 25 MG TABLET PO SCH ×2 (08:08→20:03)
[2021-03-28] MEDS: LORazepam 1 MG TAB PO SCH ×2 (08:09→20:01)
[2021-03-28] MEDS: LIDOCAINE 5% (LIDODERM) PATCH TD SCH (08:09)
[2021-03-28] MEDS: VENLAFAXINE **XR** 75MG CAPSULE PO SCH (08:09)
[2021-03-28] MEDS: MULTIVITAMINS/MINERALS THERAP 1 TAB PO SCH (08:09)
[2021-03-28] MEDS: ACETAMINOPHEN TAB 650MG DOSE (2X325MG) PO PRN (10:13)
[2021-03-28 16:09] VITALS: BP_SYST 128; BP_SYST 141; BP_DIAS 68; BP_DIAS 92
[2021-03-28] MEDS: MIRTAZAPINE 7.5MG PER 1/2 TABLET PO SCH (20:01)
[2021-03-28] MEDS: DONEPEZIL 5 MG TAB PO SCH (20:01)
[2021-03-28] MEDS: **NOTE PATIENT COMMENT** MISC XX SCH (20:03)
[2021-03-28] MEDS: traZODone 50 MG TAB PO PRN (20:03)
[2021-03-29] MEDS: LEVOTHYROXINE 50MCG TABLET (0.05MG) PO SCH (06:12)
[2021-03-29 06:51] VITALS: BP 130/73
[2021-03-29] MEDS: risperiDONE 1 MG TAB PO SCH ×2 (08:00→20:21)
[2021-03-29] MEDS: OYSTER SHELL CALCIUM 500 MG TAB PO SCH (08:00)
[2021-03-29] MEDS: SODIUM CHLORIDE 1 GM TAB PO SCH ×3 (08:00→20:25)
[2021-03-29] MEDS: MULTIVITAMINS/MINERALS THERAP 1 TAB PO SCH (08:00)
[2021-03-29] MEDS: VENLAFAXINE **XR** 75MG CAPSULE PO SCH (08:00)
[2021-03-29] MEDS: METOPROLOL TART 25 MG TABLET PO SCH ×2 (08:00→20:25)
[2021-03-29] MEDS: BENZTROPINE 0.5 MG TAB PO SCH ×2 (08:00→20:21)
[2021-03-29] MEDS: LORazepam 1 MG TAB PO SCH ×2 (08:00→20:21)
[2021-03-29] MEDS: LIDOCAINE 5% (LIDODERM) PATCH TD SCH (08:00)
[2021-03-29 16:21] VITALS: BP 121/64
[2021-03-29] MEDS: DONEPEZIL 5 MG TAB PO SCH (20:20)
[2021-03-29] MEDS: MIRTAZAPINE 7.5MG PER 1/2 TABLET PO SCH (20:21)
[2021-03-29] MEDS: **NOTE PATIENT COMMENT** MISC XX SCH (20:26)
[2021-03-30] MEDS: LEVOTHYROXINE 50MCG TABLET (0.05MG) PO SCH (06:01)
[2021-03-30 06:32] VITALS: BP 133/95
[2021-03-30] MEDS: SODIUM CHLORIDE 1 GM TAB PO SCH ×3 (08:06→20:05)
[2021-03-30] MEDS: LORazepam 1 MG TAB PO SCH ×2 (08:07→20:05)
[2021-03-30] MEDS: OYSTER SHELL CALCIUM 500 MG TAB PO SCH (08:07)
[2021-03-30] MEDS: risperiDONE 1 MG TAB PO SCH ×2 (08:07→20:04)
[2021-03-30] MEDS: BENZTROPINE 0.5 MG TAB PO SCH ×2 (08:07→20:04)
[2021-03-30] MEDS: MULTIVITAMINS/MINERALS THERAP 1 TAB PO SCH (08:07)
[2021-03-30] MEDS: VENLAFAXINE **XR** 75MG CAPSULE PO SCH (08:07)
[2021-03-30] MEDS: METOPROLOL TART 25 MG TABLET PO SCH ×2 (08:08→20:05)
[2021-03-30] MEDS: LIDOCAINE 5% (LIDODERM) PATCH TD SCH (08:12)
[2021-03-30 16:20] VITALS: BP 125/62
[2021-03-30] MEDS: ACETAMINOPHEN TAB 650MG DOSE (2X325MG) PO PRN (18:32)
[2021-03-30] MEDS: **NOTE PATIENT COMMENT** MISC XX SCH (19:52)
[2021-03-30] MEDS: traZODone 50 MG TAB PO PRN (20:04)
[2021-03-30] MEDS: DONEPEZIL 5 MG TAB PO SCH (20:04)
[2021-03-30] MEDS: MIRTAZAPINE 7.5MG PER 1/2 TABLET PO SCH (20:04)
[2021-03-31] MEDS: LEVOTHYROXINE 50MCG TABLET (0.05MG) PO SCH (06:07)
[2021-03-31 06:39] VITALS: BP 135/91
[2021-03-31] MEDS: OYSTER SHELL CALCIUM 500 MG TAB PO SCH (08:16)
[2021-03-31] MEDS: LIDOCAINE 5% (LIDODERM) PATCH TD SCH (08:16)
[2021-03-31] MEDS: BENZTROPINE 0.5 MG TAB PO SCH ×2 (08:17→20:09)
[2021-03-31] MEDS: SODIUM CHLORIDE 1 GM TAB PO SCH ×3 (08:17→20:11)
[2021-03-31] MEDS: METOPROLOL TART 25 MG TABLET PO SCH ×2 (08:17→20:09)
[2021-03-31] MEDS: risperiDONE 1 MG TAB PO SCH ×2 (08:18→20:09)
[2021-03-31] MEDS: VENLAFAXINE **XR** 75MG CAPSULE PO SCH (08:18)
[2021-03-31] MEDS: MULTIVITAMINS/MINERALS THERAP 1 TAB PO SCH (08:18)
[2021-03-31] MEDS: LORazepam 1 MG TAB PO SCH ×2 (08:19→20:10)
[2021-03-31] MEDS: ACETAMINOPHEN TAB 650MG DOSE (2X325MG) PO PRN (15:59)
[2021-03-31] MEDS: DONEPEZIL 5 MG TAB PO SCH (20:09)
[2021-03-31] MEDS: MIRTAZAPINE 7.5MG PER 1/2 TABLET PO SCH (20:09)
[2021-03-31] MEDS: **NOTE PATIENT COMMENT** MISC XX SCH (20:22)
[2021-03-31 21:40] VITALS: BP 153/97
[2021-04-01] MEDS: LEVOTHYROXINE 50MCG TABLET (0.05MG) PO SCH (05:33)
[2021-04-01 06:35] VITALS: BP 140/80
[2021-04-01] MEDS: BENZTROPINE 0.5 MG TAB PO SCH ×2 (08:18→20:09)
[2021-04-01] MEDS: OYSTER SHELL CALCIUM 500 MG TAB PO SCH (08:18)
[2021-04-01] MEDS: SODIUM CHLORIDE 1 GM TAB PO SCH ×3 (08:19→20:08)
[2021-04-01] MEDS: METOPROLOL TART 25 MG TABLET PO SCH ×2 (08:19→20:09)
[2021-04-01] MEDS: MULTIVITAMINS/MINERALS THERAP 1 TAB PO SCH (08:20)
[2021-04-01] MEDS: VENLAFAXINE **XR** 75MG CAPSULE PO SCH (08:20)
[2021-04-01] MEDS: LORazepam 1 MG TAB PO SCH ×2 (08:20→20:09)
[2021-04-01] MEDS: risperiDONE 1 MG TAB PO SCH ×2 (08:20→20:09)
[2021-04-01] MEDS: ACETAMINOPHEN TAB 650MG DOSE (2X325MG) PO PRN (08:22)
[2021-04-01] MEDS: LIDOCAINE 5% (LIDODERM) PATCH TD SCH (08:40)
[2021-04-01 19:08] VITALS: BP 150/75
[2021-04-01] MEDS: DONEPEZIL 5 MG TAB PO SCH (20:09)
[2021-04-01] MEDS: MIRTAZAPINE 7.5MG PER 1/2 TABLET PO SCH (20:09)
[2021-04-01] MEDS: **NOTE PATIENT COMMENT** MISC XX SCH (20:11)
[2021-04-02] MEDS: LEVOTHYROXINE 50MCG TABLET (0.05MG) PO SCH (05:43)
[2021-04-02 06:22] VITALS: BP 137/74
[2021-04-02] MEDS: BENZTROPINE 0.5 MG TAB PO SCH ×2 (08:43→20:13)
[2021-04-02] MEDS: risperiDONE 1 MG TAB PO SCH ×2 (08:43→20:13)
[2021-04-02] MEDS: METOPROLOL TART 25 MG TABLET PO SCH ×2 (08:43→20:13)
[2021-04-02] MEDS: OYSTER SHELL CALCIUM 500 MG TAB PO SCH (08:43)
[2021-04-02] MEDS: MULTIVITAMINS/MINERALS THERAP 1 TAB PO SCH (08:43)
[2021-04-02] MEDS: SODIUM CHLORIDE 1 GM TAB PO SCH ×3 (08:44→20:12)
[2021-04-02] MEDS: VENLAFAXINE **XR** 75MG CAPSULE PO SCH (08:44)
[2021-04-02] MEDS: LORazepam 1 MG TAB PO SCH ×2 (08:44→20:13)
[2021-04-02] MEDS: LIDOCAINE 5% (LIDODERM) PATCH TD SCH (09:00)
[2021-04-02] MEDS ORDERED: PALIPERIDONE PALMITATE 234MG/1.5ML INJ (INVEGA)(FREE PSY INPT ONLY) IM ONE (12:50)
[2021-04-02] MEDS: ACETAMINOPHEN TAB 650MG DOSE (2X325MG) PO PRN (14:38)
[2021-04-02 17:44] VITALS: BP 135/74
[2021-04-02] MEDS: **NOTE PATIENT COMMENT** MISC XX SCH (20:13)
[2021-04-02] MEDS: MIRTAZAPINE 7.5MG PER 1/2 TABLET PO SCH (20:13)
[2021-04-02] MEDS: DONEPEZIL 5 MG TAB PO SCH (20:13)
[2021-04-03] MEDS: LEVOTHYROXINE 50MCG TABLET (0.05MG) PO SCH (05:54)
[2021-04-03 06:43] VITALS: BP 139/60
[2021-04-03] MEDS: VENLAFAXINE **XR** 75MG CAPSULE PO SCH (08:17)
[2021-04-03] MEDS: LORazepam 1 MG TAB PO SCH ×2 (08:18→20:08)
[2021-04-03] MEDS: BENZTROPINE 0.5 MG TAB PO SCH ×2 (08:18→20:08)
[2021-04-03] MEDS: MULTIVITAMINS/MINERALS THERAP 1 TAB PO SCH (08:18)
[2021-04-03] MEDS: risperiDONE 1 MG TAB PO SCH ×2 (08:18→20:08)
[2021-04-03] MEDS: OYSTER SHELL CALCIUM 500 MG TAB PO SCH (08:18)
[2021-04-03] MEDS: METOPROLOL TART 25 MG TABLET PO SCH ×2 (08:19→20:09)
[2021-04-03] MEDS ORDERED: PALIPERIDONE PALMITATE 234MG/1.5ML INJ (INVEGA)(FREE PSY INPT ONLY) IM SCH (09:00)
[2021-04-03] MEDS: LIDOCAINE 5% (LIDODERM) PATCH TD SCH (09:00)
[2021-04-03] MEDS: SODIUM CHLORIDE 1 GM TAB PO SCH ×3 (09:44→20:06)
[2021-04-03 18:55] VITALS: BP 133/73
[2021-04-03] MEDS: MIRTAZAPINE 7.5MG PER 1/2 TABLET PO SCH (20:08)
[2021-04-03] MEDS: DONEPEZIL 5 MG TAB PO SCH (20:08)
[2021-04-03] MEDS: **NOTE PATIENT COMMENT** MISC XX SCH (20:10)
[2021-04-04] MEDS: LEVOTHYROXINE 50MCG TABLET (0.05MG) PO SCH (05:36)
[2021-04-04 06:29] VITALS: BP 144/74
[2021-04-04] MEDS: OYSTER SHELL CALCIUM 500 MG TAB PO SCH (08:39)
[2021-04-04] MEDS: BENZTROPINE 0.5 MG TAB PO SCH ×2 (08:40→20:03)
[2021-04-04] MEDS: SODIUM CHLORIDE 1 GM TAB PO SCH ×3 (08:40→20:03)
[2021-04-04] MEDS: METOPROLOL TART 25 MG TABLET PO SCH ×2 (08:40→20:03)
[2021-04-04] MEDS: MULTIVITAMINS/MINERALS THERAP 1 TAB PO SCH (08:41)
[2021-04-04] MEDS: LORazepam 1 MG TAB PO SCH ×2 (08:42→20:03)
[2021-04-04] MEDS: risperiDONE 1 MG TAB PO SCH ×2 (08:42→20:03)
[2021-04-04] MEDS: VENLAFAXINE **XR** 75MG CAPSULE PO SCH (08:42)
[2021-04-04] MEDS: ACETAMINOPHEN TAB 650MG DOSE (2X325MG) PO PRN (08:43)
[2021-04-04] MEDS: LIDOCAINE 5% (LIDODERM) PATCH TD SCH ×2 (09:00→10:45)
[2021-04-04 18:00] VITALS: BP 138/63
[2021-04-04] MEDS: DONEPEZIL 5 MG TAB PO SCH (20:03)
[2021-04-04] MEDS: traZODone 50 MG TAB PO PRN (20:03)
[2021-04-04] MEDS: **NOTE PATIENT COMMENT** MISC XX SCH (20:03)
[2021-04-04] MEDS: MIRTAZAPINE 7.5MG PER 1/2 TABLET PO SCH (20:03)
[2021-04-05] MEDS: LEVOTHYROXINE 50MCG TABLET (0.05MG) PO SCH (06:20)
[2021-04-05 06:59] VITALS: BP 132/78
[2021-04-05] MEDS: SODIUM CHLORIDE 1 GM TAB PO SCH ×3 (08:28→20:09)
[2021-04-05] MEDS: METOPROLOL TART 25 MG TABLET PO SCH ×2 (08:28→20:10)
[2021-04-05] MEDS: risperiDONE 1 MG TAB PO SCH ×2 (08:28→20:09)
[2021-04-05] MEDS: LORazepam 1 MG TAB PO SCH ×2 (08:29→20:09)
[2021-04-05] MEDS: VENLAFAXINE **XR** 75MG CAPSULE PO SCH (08:29)
[2021-04-05] MEDS: OYSTER SHELL CALCIUM 500 MG TAB PO SCH (08:29)
[2021-04-05] MEDS: BENZTROPINE 0.5 MG TAB PO SCH ×2 (08:29→20:09)
[2021-04-05] MEDS: MULTIVITAMINS/MINERALS THERAP 1 TAB PO SCH (08:29)
[2021-04-05] MEDS: LIDOCAINE 5% (LIDODERM) PATCH TD SCH (09:00)
[2021-04-05] MEDS: DONEPEZIL 5 MG TAB PO SCH (20:09)
[2021-04-05] MEDS: MIRTAZAPINE 7.5MG PER 1/2 TABLET PO SCH (20:09)
[2021-04-05] MEDS: **NOTE PATIENT COMMENT** MISC XX SCH (20:11)
[2021-04-06] MEDS: LEVOTHYROXINE 50MCG TABLET (0.05MG) PO SCH (05:39)
[2021-04-06 06:25] VITALS: BP 135/75
[2021-04-06] MEDS: SODIUM CHLORIDE 1 GM TAB PO SCH ×3 (08:20→20:11)
[2021-04-06] MEDS: VENLAFAXINE **XR** 75MG CAPSULE PO SCH (08:20)
[2021-04-06] MEDS: LORazepam 1 MG TAB PO SCH ×2 (08:20→20:11)
[2021-04-06] MEDS: risperiDONE 1 MG TAB PO SCH ×2 (08:20→20:11)
[2021-04-06] MEDS: BENZTROPINE 0.5 MG TAB PO SCH ×2 (08:21→20:11)
[2021-04-06] MEDS: METOPROLOL TART 25 MG TABLET PO SCH ×2 (08:21→20:13)
[2021-04-06] MEDS: LIDOCAINE 5% (LIDODERM) PATCH TD SCH (08:21)
[2021-04-06] MEDS: OYSTER SHELL CALCIUM 500 MG TAB PO SCH (08:21)
[2021-04-06] MEDS: MULTIVITAMINS/MINERALS THERAP 1 TAB PO SCH (08:21)
[2021-04-06 18:11] VITALS: BP 118/78
[2021-04-06] MEDS: traZODone 50 MG TAB PO PRN (20:11)
[2021-04-06] MEDS: MIRTAZAPINE 7.5MG PER 1/2 TABLET PO SCH (20:11)
[2021-04-06] MEDS: DONEPEZIL 5 MG TAB PO SCH (20:11)
[2021-04-06] MEDS: **NOTE PATIENT COMMENT** MISC XX SCH (20:13)
[2021-04-07] MEDS: LEVOTHYROXINE 50MCG TABLET (0.05MG) PO SCH (06:02)
[2021-04-07 06:15] VITALS: BP 138/84
[2021-04-07] MEDS: VENLAFAXINE **XR** 75MG CAPSULE PO SCH (08:26)
[2021-04-07] MEDS: LORazepam 1 MG TAB PO SCH ×2 (08:26→20:01)
[2021-04-07] MEDS: MULTIVITAMINS/MINERALS THERAP 1 TAB PO SCH (08:26)
[2021-04-07] MEDS: METOPROLOL TART 25 MG TABLET PO SCH ×2 (08:26→20:01)
[2021-04-07] MEDS: BENZTROPINE 0.5 MG TAB PO SCH ×2 (08:26→20:01)
[2021-04-07] MEDS: OYSTER SHELL CALCIUM 500 MG TAB PO SCH (08:26)
[2021-04-07] MEDS: LIDOCAINE 5% (LIDODERM) PATCH TD SCH (08:27)
[2021-04-07] MEDS: risperiDONE 1 MG TAB PO SCH ×2 (08:27→20:01)
[2021-04-07] MEDS: SODIUM CHLORIDE 1 GM TAB PO SCH ×3 (08:27→20:00)
[2021-04-07 16:12] VITALS: BP 119/70
[2021-04-07] MEDS: DONEPEZIL 5 MG TAB PO SCH (20:01)
[2021-04-07] MEDS: MIRTAZAPINE 7.5MG PER 1/2 TABLET PO SCH (20:01)
[2021-04-07] MEDS: **NOTE PATIENT COMMENT** MISC XX SCH (20:02)
[2021-04-08] MEDS: LEVOTHYROXINE 50MCG TABLET (0.05MG) PO SCH (05:48)
[2021-04-08 06:17] VITALS: BP 133/72
[2021-04-08] MEDS: LORazepam 1 MG TAB PO SCH ×2 (08:21→20:16)
[2021-04-08] MEDS: risperiDONE 1 MG TAB PO SCH ×2 (08:21→20:17)
[2021-04-08] MEDS: OYSTER SHELL CALCIUM 500 MG TAB PO SCH (08:21)
[2021-04-08] MEDS: LIDOCAINE 5% (LIDODERM) PATCH TD SCH (08:21)
[2021-04-08] MEDS: BENZTROPINE 0.5 MG TAB PO SCH ×2 (08:21→20:17)
[2021-04-08] MEDS: MULTIVITAMINS/MINERALS THERAP 1 TAB PO SCH (08:21)
[2021-04-08] MEDS: METOPROLOL TART 25 MG TABLET PO SCH ×2 (08:21→20:17)
[2021-04-08] MEDS: VENLAFAXINE **XR** 75MG CAPSULE PO SCH (08:21)
[2021-04-08] MEDS: SODIUM CHLORIDE 1 GM TAB PO SCH ×3 (08:21→20:16)
[2021-04-08 16:09] VITALS: BP 100/65
[2021-04-08] MEDS: MIRTAZAPINE 7.5MG PER 1/2 TABLET PO SCH (20:16)
[2021-04-08] MEDS: DONEPEZIL 5 MG TAB PO SCH (20:16)
[2021-04-08] MEDS: **NOTE PATIENT COMMENT** MISC XX SCH (20:17)
[2021-04-09] MEDS: LEVOTHYROXINE 50MCG TABLET (0.05MG) PO SCH (05:52)
[2021-04-09 06:44] VITALS: BP 150/89
[2021-04-09] MEDS: VENLAFAXINE **XR** 75MG CAPSULE PO SCH (08:09)
[2021-04-09] MEDS: LIDOCAINE 5% (LIDODERM) PATCH TD SCH (08:09)
[2021-04-09] MEDS: BENZTROPINE 0.5 MG TAB PO SCH ×2 (08:09→20:27)
[2021-04-09] MEDS: OYSTER SHELL CALCIUM 500 MG TAB PO SCH (08:09)
[2021-04-09] MEDS: METOPROLOL TART 25 MG TABLET PO SCH ×2 (08:09→20:26)
[2021-04-09] MEDS: LORazepam 1 MG TAB PO SCH ×2 (08:09→20:26)
[2021-04-09] MEDS: SODIUM CHLORIDE 1 GM TAB PO SCH ×3 (08:09→20:26)
[2021-04-09] MEDS: risperiDONE 1 MG TAB PO SCH ×2 (08:09→20:27)
[2021-04-09] MEDS: MULTIVITAMINS/MINERALS THERAP 1 TAB PO SCH (08:09)
[2021-04-09 16:20] VITALS: BP 108/65
[2021-04-09] MEDS: MIRTAZAPINE 7.5MG PER 1/2 TABLET PO SCH (20:26)
[2021-04-09] MEDS: DONEPEZIL 5 MG TAB PO SCH (20:27)
[2021-04-09] MEDS: **NOTE PATIENT COMMENT** MISC XX SCH (20:27)
[2021-04-10] MEDS: LEVOTHYROXINE 50MCG TABLET (0.05MG) PO SCH (06:04)
[2021-04-10 06:38] VITALS: BP 145/83
[2021-04-10] MEDS: OYSTER SHELL CALCIUM 500 MG TAB PO SCH (08:12)
[2021-04-10] MEDS: METOPROLOL TART 25 MG TABLET PO SCH ×2 (08:12→20:40)
[2021-04-10] MEDS: BENZTROPINE 0.5 MG TAB PO SCH ×2 (08:12→20:40)
[2021-04-10] MEDS: risperiDONE 1 MG TAB PO SCH ×2 (08:13→20:41)
[2021-04-10] MEDS: MULTIVITAMINS/MINERALS THERAP 1 TAB PO SCH (08:13)
[2021-04-10] MEDS: SODIUM CHLORIDE 1 GM TAB PO SCH ×3 (08:13→20:38)
[2021-04-10] MEDS: VENLAFAXINE **XR** 75MG CAPSULE PO SCH (08:13)
[2021-04-10] MEDS: LORazepam 1 MG TAB PO SCH ×2 (08:14→20:40)
[2021-04-10] MEDS: LIDOCAINE 5% (LIDODERM) PATCH TD SCH (09:00)
[2021-04-10 18:24] VITALS: BP 156/87
[2021-04-10] MEDS: ACETAMINOPHEN TAB 650MG DOSE (2X325MG) PO PRN (19:37)
[2021-04-10] MEDS: traZODone 50 MG TAB PO PRN (20:39)
[2021-04-10] MEDS: MIRTAZAPINE 7.5MG PER 1/2 TABLET PO SCH (20:39)
[2021-04-10] MEDS: DONEPEZIL 5 MG TAB PO SCH (20:41)
[2021-04-10] MEDS: **NOTE PATIENT COMMENT** MISC XX SCH (20:43)
[2021-04-11] MEDS: LEVOTHYROXINE 50MCG TABLET (0.05MG) PO SCH (06:01)
[2021-04-11 06:37] VITALS: BP 127/77
[2021-04-11] MEDS: BENZTROPINE 0.5 MG TAB PO SCH ×2 (08:21→20:00)
[2021-04-11] MEDS: risperiDONE 1 MG TAB PO SCH ×2 (08:21→20:00)
[2021-04-11] MEDS: OYSTER SHELL CALCIUM 500 MG TAB PO SCH (08:21)
[2021-04-11] MEDS: METOPROLOL TART 25 MG TABLET PO SCH ×2 (08:21→20:00)
[2021-04-11] MEDS: VENLAFAXINE **XR** 75MG CAPSULE PO SCH (08:21)
[2021-04-11] MEDS: LORazepam 1 MG TAB PO SCH ×2 (08:21→20:00)
[2021-04-11] MEDS: MULTIVITAMINS/MINERALS THERAP 1 TAB PO SCH (08:21)
[2021-04-11] MEDS: LIDOCAINE 5% (LIDODERM) PATCH TD SCH (08:24)
[2021-04-11] MEDS: SODIUM CHLORIDE 1 GM TAB PO SCH ×3 (08:24→20:00)
[2021-04-11 16:23] VITALS: BP 101/58
[2021-04-11] MEDS: **NOTE PATIENT COMMENT** MISC XX SCH (20:00)
[2021-04-11] MEDS: MIRTAZAPINE 7.5MG PER 1/2 TABLET PO SCH (20:00)
[2021-04-11] MEDS: DONEPEZIL 5 MG TAB PO SCH (20:00)
[2021-04-12] MEDS: LEVOTHYROXINE 50MCG TABLET (0.05MG) PO SCH (05:55)
[2021-04-12 06:13] VITALS: BP 90/65
[2021-04-12] MEDS: BENZTROPINE 0.5 MG TAB PO SCH ×2 (08:13→20:17)
[2021-04-12] MEDS: risperiDONE 1 MG TAB PO SCH ×2 (08:13→20:17)
[2021-04-12] MEDS: OYSTER SHELL CALCIUM 500 MG TAB PO SCH (08:13)
[2021-04-12] MEDS: LORazepam 1 MG TAB PO SCH ×2 (08:13→20:17)
[2021-04-12] MEDS: VENLAFAXINE **XR** 75MG CAPSULE PO SCH (08:13)
[2021-04-12] MEDS: SODIUM CHLORIDE 1 GM TAB PO SCH ×3 (08:13→20:17)
[2021-04-12] MEDS: MULTIVITAMINS/MINERALS THERAP 1 TAB PO SCH (08:13)
[2021-04-12] MEDS: METOPROLOL TART 25 MG TABLET PO SCH ×2 (08:15→20:17)
[2021-04-12] MEDS: LIDOCAINE 5% (LIDODERM) PATCH TD SCH (08:19)
[2021-04-12 15:56] VITALS: BP 136/66
[2021-04-12] MEDS: MIRTAZAPINE 7.5MG PER 1/2 TABLET PO SCH (20:17)
[2021-04-12] MEDS: DONEPEZIL 5 MG TAB PO SCH (20:17)
[2021-04-12] MEDS: **NOTE PATIENT COMMENT** MISC XX SCH (20:18)
[2021-04-13] MEDS: LEVOTHYROXINE 50MCG TABLET (0.05MG) PO SCH (05:33)
[2021-04-13 06:30] VITALS: BP 134/79
[2021-04-13] MEDS: SODIUM CHLORIDE 1 GM TAB PO SCH ×3 (08:23→20:02)
[2021-04-13] MEDS: OYSTER SHELL CALCIUM 500 MG TAB PO SCH (08:23)
[2021-04-13] MEDS: VENLAFAXINE **XR** 75MG CAPSULE PO SCH (08:24)
[2021-04-13] MEDS: risperiDONE 1 MG TAB PO SCH ×2 (08:24→20:03)
[2021-04-13] MEDS: MULTIVITAMINS/MINERALS THERAP 1 TAB PO SCH (08:24)
[2021-04-13] MEDS: BENZTROPINE 0.5 MG TAB PO SCH ×2 (08:24→20:02)
[2021-04-13] MEDS: METOPROLOL TART 25 MG TABLET PO SCH ×2 (08:24→20:03)
[2021-04-13] MEDS: LORazepam 1 MG TAB PO SCH ×2 (08:24→20:02)
[2021-04-13] MEDS: LIDOCAINE 5% (LIDODERM) PATCH TD SCH (08:24)
[2021-04-13 16:30] VITALS: BP 135/66
[2021-04-13] MEDS: MIRTAZAPINE 7.5MG PER 1/2 TABLET PO SCH (20:03)
[2021-04-13] MEDS: **NOTE PATIENT COMMENT** MISC XX SCH (20:03)
[2021-04-13] MEDS: DONEPEZIL 5 MG TAB PO SCH (20:03)
[2021-04-14] MEDS: LEVOTHYROXINE 50MCG TABLET (0.05MG) PO SCH (05:45)
[2021-04-14 07:04] VITALS: BP 150/74
[2021-04-14] MEDS: BENZTROPINE 0.5 MG TAB PO SCH ×2 (08:13→20:03)
[2021-04-14] MEDS: OYSTER SHELL CALCIUM 500 MG TAB PO SCH (08:13)
[2021-04-14] MEDS: SODIUM CHLORIDE 1 GM TAB PO SCH ×3 (08:13→20:02)
[2021-04-14] MEDS: MULTIVITAMINS/MINERALS THERAP 1 TAB PO SCH (08:14)
[2021-04-14] MEDS: METOPROLOL TART 25 MG TABLET PO SCH ×2 (08:14→20:03)
[2021-04-14] MEDS: VENLAFAXINE **XR** 75MG CAPSULE PO SCH (08:15)
[2021-04-14] MEDS: LORazepam 1 MG TAB PO SCH ×2 (08:15→20:02)
[2021-04-14] MEDS: risperiDONE 1 MG TAB PO SCH ×2 (08:15→20:02)
[2021-04-14] MEDS: ACETAMINOPHEN TAB 650MG DOSE (2X325MG) PO PRN (08:17)
[2021-04-14] MEDS: LIDOCAINE 5% (LIDODERM) PATCH TD SCH (08:18)
[2021-04-14 18:25] VITALS: BP 116/55
[2021-04-14] MEDS: DONEPEZIL 5 MG TAB PO SCH (20:02)
[2021-04-14] MEDS: MIRTAZAPINE 7.5MG PER 1/2 TABLET PO SCH (20:03)
[2021-04-14] MEDS: **NOTE PATIENT COMMENT** MISC XX SCH (20:03)
[2021-04-15] MEDS: LEVOTHYROXINE 50MCG TABLET (0.05MG) PO SCH (05:48)
[2021-04-15 06:42] VITALS: BP 115/55
[2021-04-15] MEDS: LORazepam 1 MG TAB PO SCH ×2 (08:00→20:03)
[2021-04-15] MEDS: SODIUM CHLORIDE 1 GM TAB PO SCH ×3 (08:00→20:02)
[2021-04-15] MEDS: OYSTER SHELL CALCIUM 500 MG TAB PO SCH (08:01)
[2021-04-15] MEDS: VENLAFAXINE **XR** 75MG CAPSULE PO SCH (08:01)
[2021-04-15] MEDS: BENZTROPINE 0.5 MG TAB PO SCH ×2 (08:01→20:03)
[2021-04-15] MEDS: MULTIVITAMINS/MINERALS THERAP 1 TAB PO SCH (08:03)
[2021-04-15] MEDS: risperiDONE 1 MG TAB PO SCH ×2 (08:03→20:03)
[2021-04-15] MEDS: METOPROLOL TART 25 MG TABLET PO SCH ×2 (08:03→20:03)
[2021-04-15] MEDS: LIDOCAINE 5% (LIDODERM) PATCH TD SCH (09:00)
[2021-04-15] MEDS ORDERED: VENL150C43 PO (12:11)
[2021-04-15] MEDS ORDERED: BENZ0.5T23 PO (12:11)
[2021-04-15] MEDS ORDERED: MIRT-62 PO (12:11)
[2021-04-15] MEDS ORDERED: SYNT50TA PO (12:11)
[2021-04-15] MEDS ORDERED: METO25TA4 PO (12:11)
[2021-04-15] MEDS ORDERED: VITMTA PO (12:11)
[2021-04-15] MEDS ORDERED: ATIV1TAB7 PO (12:11)
[2021-04-15] MEDS ORDERED: OYST1TAB PO (12:11)
[2021-04-15] MEDS ORDERED: DONE10TA90 PO (12:11)
[2021-04-15] MEDS ORDERED: TRAZ-252 PO (12:11)
[2021-04-15] MEDS ORDERED: RISP-8 PO (12:11)
[2021-04-15] MEDS ORDERED: SODI1TAB6 PO (12:11)
[2021-04-15 17:59] VITALS: BP 106/59
[2021-04-15] MEDS: MIRTAZAPINE 7.5MG PER 1/2 TABLET PO SCH (20:03)
[2021-04-15] MEDS: DONEPEZIL 5 MG TAB PO SCH (20:03)
[2021-04-15] MEDS: **NOTE PATIENT COMMENT** MISC XX SCH (20:04)
[2021-04-16] MEDS: LEVOTHYROXINE 50MCG TABLET (0.05MG) PO SCH (05:24)
[2021-04-16 06:43] VITALS: BP 130/61
[2021-04-16 08:15] VITALS: BP 130/61
[2021-04-16] MEDS: OYSTER SHELL CALCIUM 500 MG TAB PO SCH (08:15)
[2021-04-16] MEDS: VENLAFAXINE **XR** 75MG CAPSULE PO SCH (08:15)
[2021-04-16] MEDS: LIDOCAINE 5% (LIDODERM) PATCH TD SCH (08:15)
[2021-04-16] MEDS: risperiDONE 1 MG TAB PO SCH (08:15)
[2021-04-16] MEDS: BENZTROPINE 0.5 MG TAB PO SCH (08:15)
[2021-04-16] MEDS: MULTIVITAMINS/MINERALS THERAP 1 TAB PO SCH (08:15)
[2021-04-16] MEDS: SODIUM CHLORIDE 1 GM TAB PO SCH (08:15)
[2021-04-16] MEDS: METOPROLOL TART 25 MG TABLET PO SCH (08:15)
[2021-04-16] MEDS: LORazepam 1 MG TAB PO SCH (08:15)
== END 2021-04-16 09:57 | disposition home or self-care (01) | DRG 885 ==
LOC: M ED 03:29 → M PSY 21:30 → M ED 21:33 → M PSY 03-28 12:53
PROVIDERS: ADMIT Student in an Organized Health Care Education/Training Program; ATTEND Psychiatry & Neurology Psychiatry
DX: F25.0 Schizoaffective disorder, bipolar type (principal); F41.1 Generalized anxiety disorder; R41.9 Unspecified symptoms and signs involving cognitive functions and awareness; F60.7 Dependent personality disorder; Z20.822 Contact with and (suspected) exposure to COVID-19; Z79.899 Other long term (current) drug therapy; E03.9 Hypothyroidism, unspecified; I10 Essential (primary) hypertension; J45.909 Unspecified asthma, uncomplicated; E66.01 Morbid (severe) obesity due to excess calories; F02.80 Dementia in other diseases classified elsewhere, unspecified severity, without behavioral disturbance, psychotic disturbance, mood disturbance, and anxiety; Z60.9 Problem related to social environment, unspecified; Z68.36 Body mass index [BMI] 36.0-36.9, adult; G30.9 Alzheimer's disease, unspecified; G20 Parkinson's disease; R19.7 Diarrhea, unspecified

== ENCOUNTER → 2021-04-17 | Outpatient (CLI) | payer MEDICARE, OTHER ==
[~2021-04-17] MED LIST changes: +MED NOTE
[2021-04-17 17:33] LABS: BASO % 0.1 % (0.0-1.0); EOS # 0.1 10^3/uL (0.0-0.5); EOS % 1.8 % (0.0-3.0); HEMATOCRIT 36.3 % (36.0-47.0); HEMOGLOBIN 12.1 g/dl (12.0-15.5); LYMPH # 2.2 10^3/uL (1.5-5.0); LYMPH % 31.2 % (24.0-44.0); MEAN CORPUSCULAR HEMOGLOBIN 30.8 pg (27.0-33.0); MEAN CORPUSCULAR HGB CONC 33.3 g/dl (32.0-36.5); MEAN CORPUSCULAR VOLUME 92.4 fl (80.0-96.0); MONO # 0.6 10^3/uL (0.0-0.8); NEUTROPHILS # 4.1 10^3/uL (1.5-8.5); NEUTROPHILS % 57.8 % (36.0-66.0); PLATELET COUNT, AUTOMATED 249 10^3/uL (150-450); RED BLOOD COUNT 3.93 10^6/uL (4.00-5.40); WHITE BLOOD COUNT 7.1 10^3/uL (4.0-10.0)
[2021-04-17 17:56] LABS: ALBUMIN 3.6 GM/DL (3.2-5.2); ALT/SGPT 27 U/L (12-78); BILIRUBIN,TOTAL 0.2 MG/DL (0.2-1.0); BLOOD UREA NITROGEN 14 MG/DL (7-18); CARBON DIOXIDE LEVEL 29 MEQ/L (21-32); CHLORIDE LEVEL 102 MEQ/L (98-107); CREATININE FOR GFR 0.67 MG/DL (0.55-1.30); FREE T4 0.91 NG/DL (0.76-1.46); GLOMERULAR FILTRATION RATE > 60.0 (>45); GLUCOSE, FASTING 85 MG/DL (70-100); POTASSIUM SERUM 4.2 MEQ/L (3.5-5.1); SODIUM LEVEL 139 MEQ/L (136-145); TOTAL PROTEIN 6.1 GM/DL (6.4-8.2)
[2021-04-17 18:26] LABS: HEMOGLOBIN A1c 5.4 %
== END ==
LOC: M PLALAB 15:30
PROVIDERS: ATTEND Physician Assistant Medical
DX: R73.01 Impaired fasting glucose (principal); E87.1 Hypo-osmolality and hyponatremia; I10 Essential (primary) hypertension; E03.9 Hypothyroidism, unspecified